=== PATIENT | female | born 1960 | race African-American/Black ===

== ENCOUNTER 2019-07-09 06:05 | Day surgery (SDC) | payer OTHER, SELFPAY ==
[2019-07-04 12:16] LABS: Urine Appearance CLEAR; Urine Bilirubin NEGATIVE (NEG); Urine Blood NEGATIVE (NEG); Urine Color YELLOW; Urine Glucose 3+ (NEG); Urine Protein NEGATIVE (NEG); Urine Specific Gravity >=1.030 (1.005-1.030)
[2019-07-04 12:18] LABS: Absolute Lymphocytes (CBC) 2.4 K/uL (0.7-4.9); Basophils % 0.6 % (0-1.3); Hematocrit 39.4 % (36.0-45.0); Lymphocytes % 29.3 % (15.3-44.8); MPV 7.8 fL (7.6-11.3); RBC Red Blood Cell Count 4.44 M/uL (3.86-4.86)
[2019-07-04 12:23] LABS: Urine Microscopic Reflex NO UMIC
--- NOTE | 2019-07-04 15:01 | EKG ---
Test Date: 2019-07-04 Test Time: 11:53:01 Sessions Clerk: MARLA MEASUREMENT RESULTS: Intervals: Rate: 86 IN: 154 QRSD: 90 QT: 398 QTc: 476 [place]: P: 66 IN: 154 QRS: 32 T: 54 INTERPRETIVE STATEMENTS: Sinus rhythm with occasional premature ventricular complexes Otherwise normal ECG No previous ECG available for comparison Electronically Signed On 07-04-19 15:00:12 CDT by Genaro Jewell
--- OUTSIDE RECORDS SUMMARY | 2019-07-09 05:55 | XMS REPORT ---
:1960 Author Organization [employer]Works Care Team Providers Name Role Phone Arash Shelly Provider Role Unavailable Allergies No Known Allergies Problems Problem Type Condition Code Onset Dates Condition Status Problem Neurological complaint R29.90 Active Problem Hyperglycemia R73.9 Active Problem Obesity (BMI 30-39.9) E66.9 Active Problem Essential hypertension I10 Active Problem Pain in left finger(s) M79.645 Active Problem Nodule of finger of both hands R22.33 Active Problem Breast pain, left N64.4 Active Problem Pain in right finger(s) M79.644 Active Medications No Known Medications Results No Known Results Summary Purpose eClinicalWorks Submission
--- OUTSIDE RECORDS SUMMARY | 2019-07-09 05:55 | XMS REPORT ---
:1960 [facility] Address [address] [place] [address] Dr. Vernon [address] [place] [id number] Care Team Providers Name Role Phone Unavailable Unavailable Unavailable Problems This patient has no known problems. Allergies, Adverse Reactions, Alerts This patient has no known allergies or adverse reactions. Medications This patient has no known medications. Encounters Start End Encounter Admission Attending Care Care Encounter Date/Time Date/Time Type Type Clinicians Facility Department ID 2019-07-08 2019-07-08 Outpatient [id number] 08:31:00 08:31:00
--- OUTSIDE RECORDS SUMMARY | 2019-07-09 05:55 | XMS REPORT ---
:1960 Author Organization eClinicalWorks Care Team Providers Name Role Phone Valentinnikki Shelly Provider Role Unavailable Allergies, Adverse Reactions, Alerts Substance Reaction Event Type N.K.D.A. Info Not Available Non Drug Allergy Problems Problem Type Condition Code Onset Dates Condition Status Problem Pain in left finger(s) M79.645 Active Problem Breast pain, left N64.4 Active Problem Pain in right finger(s) M79.644 Active Assessment Essential hypertension I10 Active Assessment Abnormal mammogram R92.8 Active Assessment Left breast mass N63.20 Active Problem Left breast mass N63.20 Active Problem Nodule of finger of both hands R22.33 Active Problem Abnormal mammogram R92.8 Active Problem Hyperglycemia R73.9 Active Problem Obesity (BMI 30-39.9) E66.9 Active Problem Neurological complaint R29.90 Active Problem Essential hypertension I10 Active Medications Medication Code Code Instructions Start End Status Dosage System Date Date Amlodipine [facility] 82394409160 10 MG Orally Active 1 tablet Besylate Once a day Enalapril ND 64221538928 10 MG Orally May 13, Inactive 1 tablet Maleate Once a day for 2019 high blood pressure Lumigan [facility] 48687338473 0.01 % Active 1 drop into Ophthalmic Once affected a day eye in the evening Symbicort [facility] 65082449851 160-4.5 MCG/ACT Active 1 puffs Inhalation Once a day Combigan [facility] 38028917901 0.2-0.5 % Active 1 drop into Ophthalmic once affected a day eye Losartan ND 53746028950 25 MG Orally May 22, Active 1 tablet Potassium Once a day 2019 Results No Known Results Summary Purpose eClinicalWorks Submission
--- OUTSIDE RECORDS SUMMARY | 2019-07-09 05:55 | XMS REPORT ---
:1960 Author Organization [employer] Care Team Providers Name Role Phone Shelly Antoine Provider Role Unavailable Allergies No Known Allergies Problems Problem Type Condition Code Onset Dates Condition Status Problem Pain in left finger(s) M79.645 Active Problem Breast pain, left N64.4 Active Problem Pain in right finger(s) M79.644 Active Problem Left breast mass N63.20 Active Problem Nodule of finger of both hands R22.33 Active Problem Abnormal mammogram R92.8 Active Problem Hyperglycemia R73.9 Active Problem Obesity (BMI 30-39.9) E66.9 Active Problem Neurological complaint R29.90 Active Problem Essential hypertension I10 Active Medications No Known Medications Results No Known Results Summary Purpose eClinicalWorks Submission
--- OUTSIDE RECORDS SUMMARY | 2019-07-09 05:55 | XMS REPORT ---
:1960 Author Organization eClinicalWorks Care Team Providers Name Role Phone Shelly Antoine Provider Role Unavailable Allergies, Adverse Reactions, Alerts Substance Reaction Event Type N.K.D.A. Info Not Available Non Drug Allergy Problems Problem Type Condition Code Onset Dates Condition Status Assessment Essential hypertension I10 Active Problem Neurological complaint R29.90 Active Problem Hyperglycemia R73.9 Active Problem Obesity (BMI 30-39.9) E66.9 Active Problem Essential hypertension I10 Active Problem Pain in left finger(s) M79.645 Active Problem Nodule of finger of both hands R22.33 Active Problem Breast pain, left N64.4 Active Problem Pain in right finger(s) M79.644 Active Assessment Neurological complaint R29.90 Active Assessment Pain in right finger(s) M79.644 Active Assessment Obesity (BMI 30-39.9) E66.9 Active Assessment Hyperglycemia R73.9 Active Assessment Pain in left finger(s) M79.645 Active Assessment Screening mammogram, encounter for Z12.31 Active Assessment Nodule of finger of both hands R22.33 Active Assessment Breast pain, left N64.4 Active Medications Medication Code Code Instructions Start End Status Dosage System Date Date Combigan [facility] 07116164125 0.2-0.5 % Active 1 drop into Ophthalmic once affected a day eye Enalapril ND 59264265235 10 MG Orally May 13, Active 1 tablet Maleate Once a day for 2019 high blood pressure Symbicort [facility] 33257358871 160-4.5 MCG/ACT Active 1 puffs Inhalation Once a day Lumigan [facility] 39965877595 0.01 % Active 1 drop into Ophthalmic Once affected a day eye in the evening Amlodipine ND 35587435514 10 MG Orally Active 1 tablet Besylate Once a day Results No Known Results Summary Purpose eClinicalWorks Submission
--- OUTSIDE RECORDS SUMMARY | 2019-07-09 07:02 | XMS REPORT ---
[...] End Status Dosage System Date Date Amlodipine [facility] 01165490457 10 MG Orally Active 1 tablet Besylate Once a day Enalapril ND 37475622236 10 MG Orally May 13, Inactive 1 tablet Maleate Once a day for 2019 high blood pressure Lumigan [facility] 68772184867 0.01 % Active 1 drop into Ophthalmic Once affected a day eye in the evening Symbicort [facility] 03787743439 160-4.5 MCG/ACT Active 1 puffs Inhalation Once a day Combigan [facility] 43796927952 0.2-0.5 % Active 1 drop into Ophthalmic once affected a day eye Losartan ND 15380761586 25 MG Orally May 22, Active 1 tablet Potassium Once a day 2019 Results No Known Results Summary Purpose eClinicalWorks Submission
--- OUTSIDE RECORDS SUMMARY | 2019-07-09 07:02 | XMS REPORT ---
[...] End Status Dosage System Date Date Combigan [facility] 74852372433 0.2-0.5 % Active 1 drop into Ophthalmic once affected a day eye Enalapril ND 29199192686 10 MG Orally May 13, Active 1 tablet Maleate Once a day for 2019 high blood pressure Symbicort [facility] 16458357341 160-4.5 MCG/ACT Active 1 puffs Inhalation Once a day Lumigan [facility] 37463046241 0.01 % Active 1 drop into Ophthalmic Once affected a day eye in the evening Amlodipine ND 95083434632 10 MG Orally Active 1 tablet Besylate Once a day Results No Known Results Summary Purpose eClinicalWorks Submission
--- OUTSIDE RECORDS SUMMARY | 2019-07-09 07:03 | XMS REPORT ---
:1960 [facility] Address [address] [place] [address] Dr. Vernon [address] [place] [address] Care Team Providers Name Role Phone Unavailable [...]
[2019-07-09] MEDS ORDERED: SCOPOLAMINE HYDROBROMIDE PATCH TD ONE ×2 (07:54→07:55)
[2019-07-09] MEDS: BUPIVACAINE 0.25% PF 30 ML VIAL ONE ×2 (08:51→11:30)
[2019-07-09] MEDS ORDERED: Ringers Lactate 1,000 ML IV ONE (09:28)
[2019-07-09] MEDS ORDERED: BUPIVACAINE 0.25% PF 10 ML VIAL IJ ONE ×2 (11:30)
[2019-07-09] MEDS ORDERED: PROMETHAZINE INJ 25 MG/ML AMP ONE ×2 (12:01→12:27)
[2019-07-09] MEDS: HYDROMORPHONE HCL 1 MG/ML INJ ONE ×2 (12:20→12:29)
[2019-07-09] MEDS ORDERED: HYDROCODONE/APAP 5/325 MG TAB ONE (14:24)
[2019-07-09 14:39] VITALS: BP 149/68; TEMP 97; O2SAT 98
--- NOTE | 2019-07-24 01:08 | OP ---
Date of Procedure: 07/09/2019 Surgeon: Marlin Cardenas MD Section Cutter: Beth Lockhart Preoperative Diagnoses: Complex pelvic mass, possible right ovarian cyst. Patient with recent diagn osis of locally advanced breast cancer. Postoperative Diagnoses: Bilateral hydrosalpinges and possible endometriosis. Significant adhesions of small bowel, sigmoid, and cecum. Procedures Performed: 1.Diagnostic laparoscopy. 2.Pelvic washings. 3.Extensive lysis of bowel adhesions including small bowel, sigmoid, and cecum. Lysis of ovarian ad hesions. Cystoscopy. Greater than 75% of the case involved removal of the bowel adhesions. Anesthesia: General endotracheal. Patient did have a difficult airway. Fiberoptic scope was used a nd intubated. Specimens: Pelvic washings and bilateral tubes and ovaries. Estimated Blood Loss: Minimal. Complications: No complications. Drains: No drains. Condition: Patient's condition stable. Indications: Patient is a 59-year-old with recent diagnosis of locally advanced breast cancer. She is being worked up by her oncologist, . Found on the CT scan of the abdomen and pelvis to have a complex adnexal mass of 5 cm. After reviewing the patient and evaluating the patient's hi story and physical exam, options of removal of the pelvic mass to rule out any ovarian malignancy or metastatic cancer. Overall diagnosis of the patient since this is not a solid tumor, metastasis from the breast is less likely prior to rule out of the primary ovarian cancer. Discussed about the find ings of hydrosalpinges or other adhesions and loculations of fluid that could cause her to have this pelvic mass were all discussed with the patient, and after considering all the benefits and risks and alternatives of upcoming chemotherapy prior to surgical intervention were discussed with her oncolog ist, plan was made to proceed with surgical treatment first, and once the patient's pathology is avai lable, then proceed with her port placement and chemotherapy and all that. Description Of Procedure: After informed consent was verified, patient was taken back to the OR, dawn melinda in supine fashion on the operating table. In the preop, she was consented again. Risks of bowel injury, bladder injury, ureteric injury were all reviewed with the patient. The lack of need for re moval of the cervix was discussed with the patient. She is status post supracervical hysterectomy. This increased morbidity of the procedure, although patient is a smoker, and this was discussed with the patient that cessation would be helpful in order to help her heal faster and decrease the risk of postoperative infection. She was taken back to OR, placed in supine fashion on the operating table. General anesthesia given as dictated difficult airway. Abdomen, vulva, vagina, and perineum preppe d and draped in a sterile fashion. A sponge on a stick placed in the vagina and Stephens to drain the b ladder. This area was draped. A 1 cm supraumbilical incision was made, 10 mm in the midline. Open dissection was performed. Fascia incised and tagged with 0 Vicryl sutures. Then, gradually sharp di ssection to the peritoneum, and once the patient's cavity was entered, S retractors were placed. Ins ufflation was done after Lakeisha was introduced. Site of entry was checked, unremarkable. However, t here were adhesions in the right lower quadrant starting from the cecal adhesion to the anterior abdo marianne wall and the right lateral wall. Small bowel adhesions were seen to the right side as well. I could not see any tubal or ovarian pathology at this time. So, a 5-mm right upper quadrant port was placed under direct vision and dissection was performed gradually to take down the adhesions sharply with scissors from the cecum to the anterior abdominal wall. Then another 5-mm right lower quadrant port was placed and using the traction and countertraction technique making window, small bowel was taken down from the right lower quadrant that was attached to the infundibulopelvic ligament and the distal part of the paracolic gutter. Once all the small bowel was released, the patient was placed i n Trendelenburg and bowel retracted superiorly into the upper abdominal cavity and pelvic cavity was exposed. There were adhesions of the sigmoid all the way from the right lateral wall to the tube, al l the way down to the level of the cervix and the bladder. So, gradually windows were created and di ssection was performed taking the sigmoid down from the lateral wall. Ureter was traced at the level of the pelvic brim where it crossed the iliacs at the level of the bifurcation of the iliacs and thi s was traced down gradually. Dissection was performed carefully staying away from the ureter and the peritoneum. After taking the sigmoid down, I realized that this was a larger hydrosalpinx that star waylon at the level of the infundibulopelvic ligament, the ovary was tucked underneath it and the tube w as adhered to the area of the supracervical hysterectomy into the bladder. Next, the bladder was donis led and drained with retrograde filling to the olamide borders. Then, the tube was dissected free with help of the LigaSure from the bladder. Then, infundibulopelvic ligament was isolated. A window crea waylon medially. Then, this was taken down with the help of the LigaSure at IP making sure that the ure ter was far away. Then, once the ovary was from its blood supply, the dissection was perfo rmed of the lateral wall, understanding the course of the ureter and removing the tubal and ovarian a dhesions from the lateral sidewall. Once the dissection was performed, it was from the are a of bladder as well and the specimen was left in the right lower quadrant. Then, the sigmoid colon was taken down from the top of the bladder from the left lateral wall all the way to the level of the left lower quadrant. A 5-mm port was placed on the left side for traction, countertraction, and suc tioning. The sigmoid was taken down sharply with push-spread technique and placed this with the help of the LigaSure. Once the sigmoid was all released on the left side, continued to infundibulopelvic ligament with slight dilatation of the tube on this side. The tube was taken down from the distal p art by carefully dissecting it and with windows and taking it down. The ureter was visual ized at the level of the pelvic brim, but I could not see the ureteric course due to the adhesions of the tube to the sidewall, then gradually freed defining the lateral margin of the tube. Then, disse ction was performed to stay preperitoneal and opened the space up and took the tube from the lateral wall. Once the ureter was exposed, then the tube was taken to the left side. The IP was isolated an d taken down with the help of the LigaSure. With excellent hemostasis, all specimens were removed an d placed in the specimen pouch that was placed through the umbilical incision while a 5 port was used in the left lower quadrant. closed, then thorough irrigation and suction performed. All the areas of dissection were clear of any injury. The hemostasis was excellent infundibu lopelvic ligament and pedicles. There was no electrical, mechanical, thermal injury to the ureters. However, the plan was to perform a cystoscopy. All the gas was desufflated. Trocars were removed. Fascia of the supraumbilical area closed with the help of the 0 Vicryl suture tied to each other and 4-0 interrupted in all incisions for closure. The vaginal sponge was removed and cystoscopy was per formed after the Stephens was removed. A 17-Trinidadian sheath, 30-degree lens, normal saline used. Good ur eteric reflux on both ureteric orifices. No evidence of any mechanical or electrical injury to the b ladder. The bladder was then drained. Patient was recovered from anesthesia and taken to PACU in st able condition. SUSAN/CICI Voice ID: [id number] Report ID: [id number]
== END 2019-07-09 14:45 | disposition home or self-care (01) ==
LOC: OR 06:05
PROVIDERS: ATTEND Obstetrics & Gynecology
PROC: 0UT74ZZ Resection of Bilateral Fallopian Tubes, Percutaneous Endoscopic Approach (ICD-10-PCS; 2019-07-09)
PROC: 0UT24ZZ Resection of Bilateral Ovaries, Percutaneous Endoscopic Approach (ICD-10-PCS; principal; 2019-07-09 07:30)
DX: N70.11 Chronic salpingitis (principal); K66.0 Peritoneal adhesions (postprocedural) (postinfection); C50.112 Malignant neoplasm of central portion of left female breast; I10 Essential (primary) hypertension; F17.210 Nicotine dependence, cigarettes, uncomplicated; Z79.899 Other long term (current) drug therapy
CPT/HCPCS: 36415; 81003; 85025; 86850; 86900; 86901; 88108; 88305; 93005; J1170; J2550; J7120

== ENCOUNTER 2019-07-23 11:29 | Day surgery (SDC) | payer OTHER, SELFPAY ==
[2019-07-23] MEDS ORDERED: Pegfilgrastim-CBQV 6 MG/0.6 ML SYR SQ ONE (11:45)
[2019-07-23 12:19] VITALS: BP 194/91; TEMP 98.4; O2SAT 100; BMI 39.7
== END 2019-07-23 12:25 | disposition home or self-care (01) ==
LOC: DS 11:29
PROVIDERS: ATTEND Internal Medicine Hematology & Oncology
DX: C50.912 Malignant neoplasm of unspecified site of left female breast (principal); C77.3 Secondary and unspecified malignant neoplasm of axilla and upper limb lymph nodes
CPT/HCPCS: 96372

== ENCOUNTER 2019-07-25 11:59 | Emergency (ER) | payer OTHER, SELFPAY ==
--- OUTSIDE RECORDS SUMMARY | 2019-07-25 12:01 | XMS REPORT ---
[...] End Status Dosage System Date Date Combigan [facility] 55722303455 0.2-0.5 % Active 1 drop into Ophthalmic once affected a day eye Enalapril ND 70526593408 10 MG Orally May 13, Active 1 tablet Maleate Once a day for 2019 high blood pressure Symbicort [facility] 82608444047 160-4.5 MCG/ACT Active 1 puffs Inhalation Once a day Lumigan [facility] 09520916159 0.01 % Active 1 drop into Ophthalmic Once affected a day eye in the evening Amlodipine ND 88595575515 10 MG Orally Active 1 tablet Besylate Once a day Results No Known Results Summary Purpose eClinicalWorks Submission
--- OUTSIDE RECORDS SUMMARY | 2019-07-25 12:02 | XMS REPORT ---
:1960 [facility] Address [address] [place] [address] Dr. Vernon [address] [place] [address] Care Team Providers Name Role Phone Unavailable [...]
--- OUTSIDE RECORDS SUMMARY | 2019-07-25 12:02 | XMS REPORT ---
[...] End Status Dosage System Date Date Amlodipine [facility] 08245426986 10 MG Orally Active 1 tablet Besylate Once a day Enalapril ND 79491339285 10 MG Orally May 13, Inactive 1 tablet Maleate Once a day for 2019 high blood pressure Lumigan [facility] 96678753582 0.01 % Active 1 drop into Ophthalmic Once affected a day eye in the evening Symbicort [facility] 26242814987 160-4.5 MCG/ACT Active 1 puffs Inhalation Once a day Combigan [facility] 56412841486 0.2-0.5 % Active 1 drop into Ophthalmic once affected a day eye Losartan ND 18312831328 25 MG Orally May 22, Active 1 tablet Potassium Once a day 2019 Results No Known Results Summary Purpose eClinicalWorks Submission
--- OUTSIDE RECORDS SUMMARY | 2019-07-25 12:02 | XMS REPORT ---
:1960 Author Organization eClinicalWorks Care Team Providers Name Role Phone Shelly Antoine Provider Role Unavailable Allergies No Known Allergies Problems Problem Type Condition Code Onset Dates Condition Status Problem Neurological complaint R29.90 Active Problem Pain in right finger(s) M79.644 Active Problem Pain in left finger(s) M79.645 Active Assessment Uncontrolled type 2 diabetes E11.65 Active mellitus with hyperglycemia Problem Uncontrolled type 2 diabetes E11.65 Active mellitus with hyperglycemia Problem Left breast mass N63.20 Active Problem Nodule of finger of both hands R22.33 Active Problem Abnormal mammogram R92.8 Active Problem Obesity (BMI 30-39.9) E66.9 Active Problem Breast pain, left N64.4 Active Problem Essential hypertension I10 Active Problem Hyperglycemia R73.9 Active Medications Medication Code Code Instructions Start End Status Dosage System Date Date Blood Glucose ND 0 as directed June Active as directed Monitor Test BS once 2019 (DISPENSE daily BLOOD GLUCOSE MONITOR FORMULARY TO INSURANCE) Combigan [facility] 89596175973 0.2-0.5 % Active 1 drop into Ophthalmic once affected eye a day Losartan ND 65183710487 25 MG Orally May 22, Active 1 tablet Potassium Once a day 2019 Lancets [facility] 55391716108 - as directed June Active as directed Test BS once 2019 (dispense daily lancets formulary to insurance) Glucose [facility] [address] n/s June Active as directed testing strips subcutaneous 2019 (dispense Test BS once testing daily strips formulary to insurance) Lumigan ND 42714444495 0.01 % Active 1 drop into Ophthalmic Once affected eye a day in the evening Symbicort ND 67900179647 160-4.5 MCG/ACT Active 1 puffs Inhalation Once a day Amlodipine ND 11816177896 10 MG Orally Active 1 tablet Besylate Once a day Metformin HCl ND 33700756769 500 MG Orally June Active 1 tablet Twice a day for 2019 with a meal diabetes Results No Known Results Summary Purpose eClinicalWorks Submission
[2019-07-25] MEDS ORDERED: LORAZEPAM 1 MG TABLET ONE (13:05)
--- NOTE | 2019-07-25 13:21 | RAD REPORT ---
EXAM DESCRIPTION: CT - Head Brain Wo Cont - 07/25/2019 1:10 pm CLINICAL HISTORY: SLURRED SPEECH Headache, drowsiness COMPARISON: No comparisons TECHNIQUE: All CT scans are performed using dose optimization technique as appropriate and may inclu de automated exposure control or mA/KV adjustment according to patient size. FINDINGS: No intracranial hemorrhage, hydrocephalus or extra-axial fluid collection.No areas of brai n edema or evidence of midline shift. The paranasal sinuses and mastoids are clear. The calvarium is intact. IMPRESSION: No acute intracranial abnormality.
[2019-07-25 13:47] LABS: Albumin 3.4 g/dL (3.4-5.0); Bilirubin Total 0.2 mg/dL (0.2-1.0); Potassium 4.4 mmol/L (3.5-5.1)
[2019-07-25] MEDS ORDERED: INSULIN -REGULAR HUMAN 50 UNIT/0.5 ML ML ONE (14:10)
--- NOTE | 2019-07-25 15:10 | ER ---
Nurse's Notes [facility] Name: Martha Patel Age: 59 yrs Sex: Female : 1960 Arrival Date: 07/25/2019 Time: 12:00 Bed 18 Private MD: Shelly Antoine Diagnosis: Elevated blood glucose level Presentation: 07/24 12:10 Chief complaint: Patient states: Stage 3 breast cancer,had chemo Monday, had an immuno jl7 shot on Monday, yesterday started feeling numbness to whole right side of body from top of head to toes, denies pain. Coronavirus screen: Patient denies fever greater than 100.4F, cough, shortness of breath, or difficulty breathing. Proceed with normal triage process. Ebola Screen: No symptoms or risks identified at this time. Initial Sepsis Screen: Does the patient meet any 2 criteria? No. Patient's initial sepsis screen is negative. Does the patient have a suspected source of infection? No. Patient's initial sepsis screen is negative. Risk Assessment: Do you want to hurt yourself or someone else? Patient reports no desire to harm self or others. 12:10 Method Of Arrival: Wheelchair jl7 12:10 Acuity: LISANDRO 3 jl7 Triage Assessment: 12:20 General: Appears in no apparent distress. uncomfortable, Behavior is calm, cooperative, jl7 appropriate for age. Pain: Denies pain. Historical: - Allergies: 12:20 No Known Allergies; jl7 - Home Meds: 12:20 amlodipine oral [Active]; Metformin Oral [Active]; jl7 - PMHx: 12:20 Cancer, Breast; Hypertension; Diabetes - NIDDM; jl7 - PSHx: 12:20 Hysterectomy; jl7 - Immunization history:: Adult Immunizations not up to date. - Social history:: Smoking status: Patient/guardian denies using tobacco, Stopped _ months ago 1 Patient/guardian denies using alcohol, street drugs, The patient lives with family. - Family history:: not pertinent. Screenin:34 Abuse screen: Denies threats or abuse. Nutritional screening: No deficits noted. tw2 Tuberculosis screening: No symptoms or risk factors identified. Fall Risk Secondary diagnosis (15 points) impaired mobility. Assessment: 12:21 Reassessment: Pt reports "I haven't taken my Metformin because I haven't had a chance jl7 to get the machine to check it.". 12:30 General: Appears in no apparent distress. obese, well groomed, Behavior is calm, tw2 cooperative, appropriate for age. Pain: Denies pain. Neuro: No deficits noted. Reports weakness right side since chemo. Cardiovascular: Denies chest pain, shortness of breath, Heart tones S1 S2 Patient's skin is warm and dry. Respiratory: Airway is patent Respiratory effort is even, unlabored, Respiratory pattern is regular, symmetrical, Breath sounds are clear bilaterally. GI: No signs and/or symptoms were reported involving the gastrointestinal system. Abdomen is round non-distended, obese, Bowel sounds present X 4 quads. : No signs and/or symptoms were reported regarding the genitourinary system. EENT: No signs and/or symptoms were reported regarding the EENT system. Derm: No signs and/or symptoms reported regarding the dermatologic system. Musculoskeletal: Range of motion: intact in all extremities. 13:00 Reassessment: Patient appears in no apparent distress at this time. Patient and/or tw2 family updated on plan of care and expected duration. Pain level reassessed. Patient is alert, oriented x 3, equal unlabored respirations, skin warm/dry/pink. 14:17 Reassessment: Patient appears in no apparent distress at this time. Patient and/or tw2 family updated on plan of care and expected duration. Pain level reassessed. Patient is alert, oriented x 3, equal unlabored respirations, skin warm/dry/pink. Patient states feeling better. Patient states symptoms have improved. 15:00 Reassessment: Patient appears in no apparent distress at this time. Patient and/or tw2 family updated on plan of care and expected duration. Pain level reassessed. Patient is alert, oriented x 3, equal unlabored respirations, skin warm/dry/pink. 15:38 Reassessment: Patient appears in no apparent distress at this time. Patient and/or tw2 family updated on plan of care and expected duration. Pain level reassessed. Patient is alert, oriented x 3, equal unlabored respirations, skin warm/dry/pink. Patient states feeling better. Patient states symptoms have improved. Vital Signs: 12:10 BP 178 / 85; Pulse 72; Resp 16 S; Temp 98.1(O); Pulse Ox 99% on R/A; Weight 108.41 kg jl7 (R); Pain 0/10; 12:25 BP 180 / 85; Pulse 66; Resp 16; Pulse Ox 98% on R/A; tw2 13:16 BP 167 / 70 LA; Pulse 66; Resp 14 S; Pulse Ox 100% on R/A; js6 ED Course: 12:00 Patient arrived in ED. am2 12:01 Shelly Antoine MD is Private Physician. am2 12:14 Triage completed. jl7 12:20 Arm band placed on right wrist. jl7 12:22 Bed in low position. Call light in reach. tw2 12:23 Jono Wren MD is Attending Physician. ma2 12:34 Jenna Garcia RN is Primary Nurse. tw2 12:59 Initial lab(s) drawn, by or, sent to lab. Inserted saline lock: 20 gauge in right dh3 forearm, using aseptic technique. Blood collected. 13:11 CT Head Brain wo Cont In Process Unspecified. EDMS 15:38 No provider procedures requiring assistance completed. IV discontinued, intact, tw2 bleeding controlled, No redness/swelling at site. Pressure dressing applied. Administered Medications: 13:22 Drug: Ativan 1 mg Route: PO; ll1 14:01 Follow up: Response: No adverse reaction tw2 14:08 Drug: Insulin Regular Human 3 units {Co-Signature: ll1 (Robert Garcia RN).} Route: IVP; tw2 Site: right antecubital; 15:03 Follow up: Response: No adverse reaction; Blood sugar is lowered tw2 Point of Care Testing: Blood Glucose: 12:20 Blood Glucose: 356 mg/dL; jl7 Ranges: Outcome: 15:10 Discharge ordered by . ma2 15:38 Patient left the ED. tw2 15:38 Discharged to home via wheelchair, with family. tw2 15:38 Condition: stable 15:38 Discharge instructions given to patient, Instructed on discharge instructions, follow up and referral plans. Demonstrated understanding of instructions, follow-up care. Signatures: Dispatcher [employer] EDMS Jenna Garcia RN RN tw2 Alejandra Blankenship RN RN jl7 Claudia Valdivia am2 Mayela Hanson [facility] Jono Wren MD MD ak2 Robert Garcia, SUE RN ll1 Krista Smith6 Robert Garcia RN ll1
--- NOTE | 2019-07-25 15:11 | EDPHYS ---
Physician Documentation [facility] Name: Martha Patel Age: 59 yrs Sex: Female : 1960 Arrival Date: 07/25/2019 Time: 12:00 Bed 18 Private MD: Shelly Antoine ED Physician Jono Wren HPI: 07/24 13:53 This 59 yrs old Black Female presents to ER via Wheelchair with complaints of General ma2 Weakness, Numbness - right side. 13:53 The patient's problem is reported as right body numbness including head, face, ma2 forehead, lower face, right arm, right torso and right leg . Onset: The symptoms/episode began/occurred gradually, 3 day(s) ago. Duration: The episodes are intermittent, lasting 5 minute(s). Associated signs and symptoms: Pertinent negatives: abdominal pain, agitation, ataxia, blurred vision, chest pain, confusion, diaphoresis, dizziness, headache, nausea, palpitations, shortness of breath, weakness. Severity of symptoms: At their worst the symptoms were very mild in the emergency department the symptoms have resolved. The patient has experienced similar episodes in the past. Historical: - Allergies: 12:20 No Known Allergies; jl7 - Home Meds: 12:20 amlodipine oral [Active]; Metformin Oral [Active]; jl7 - PMHx: 12:20 Cancer, Breast; Hypertension; Diabetes - NIDDM; jl7 - PSHx: 12:20 Hysterectomy; jl7 - Immunization history:: Adult Immunizations not up to date. - Social history:: Smoking status: Patient/guardian denies using tobacco, Stopped _ months ago 1 Patient/guardian denies using alcohol, street drugs, The patient lives with family. - Family history:: not pertinent. ROS: 13:53 Constitutional: Negative for fever, chills, and weight loss. ma2 13:53 All other systems are negative. Exam: 13:53 Radiologist reports: normal ma2 13:53 Constitutional: This is a well developed, well nourished patient who is awake, alert, and in no acute distress. Head/Face: Normocephalic, atraumatic. Eyes: Pupils equal round and reactive to light, extra-ocular motions intact. Lids and lashes normal. Conjunctiva and sclera are non-icteric and not injected. Cornea within normal limits. Periorbital areas with no swelling, redness, or edema. ENT: Nares patent. No nasal discharge, no septal abnormalities noted. Tympanic membranes are normal and external auditory canals are clear. Oropharynx with no redness, swelling, or masses, exudates, or evidence of obstruction, uvula midline. Mucous membranes moist. Neck: Trachea midline, no thyromegaly or masses palpated, and no cervical lymphadenopathy. Supple, full range of motion without nuchal rigidity, or vertebral point tenderness. No Meningismus. Chest/axilla: Normal chest wall appearance and motion. Nontender with no deformity. No lesions are appreciated. Cardiovascular: Regular rate and rhythm with a normal S1 and S2. No gallops, murmurs, or rubs. Normal PMI, no JVD. No pulse deficits. Respiratory: Lungs have equal breath sounds bilaterally, clear to auscultation and percussion. No rales, rhonchi or wheezes noted. No increased work of breathing, no retractions or nasal flaring. Abdomen/GI: Soft, non-tender, with normal bowel sounds. No distension or tympany. No guarding or rebound. No evidence of tenderness throughout. Back: No spinal tenderness. No costovertebral tenderness. Full range of motion. MS/ Extremity: Pulses equal, no cyanosis. Neurovascular intact. Full, normal range of motion. Neuro: Awake and alert, GCS 15, oriented to person, place, time, and situation. Cranial nerves II-XII grossly intact. Motor strength 5/5 in all extremities. Sensory grossly intact. Cerebellar exam normal. Normal gait. Vital Signs: 12:10 BP 178 / 85; Pulse 72; Resp 16 S; Temp 98.1(O); Pulse Ox 99% on R/A; Weight 108.41 kg jl7 (R); Pain 0/10; 12:25 BP 180 / 85; Pulse 66; Resp 16; Pulse Ox 98% on R/A; tw2 13:16 BP 167 / 70 LA; Pulse 66; Resp 14 S; Pulse Ox 100% on R/A; js6 MDM: 12:23 Patient medically screened. ma2 13:53 Differential diagnosis: Dementia, Alzheimer disease, Parkinson disease, metabolic ma2 disorder, drug effects. 15:09 Data reviewed: vital signs, nurses notes. Counseling: I had a detailed discussion with wisam the patient and/or guardian regarding: the historical points, exam findings, and any diagnostic results supporting the discharge/admit diagnosis, the presence of at least one elevated blood pressure reading (>120/80) during this emergency department visit, the need for outpatient follow up. Response to treatment: the patient's symptoms have resolved after treatment. 07/24 12:31 Order name: Glucose, Ancillary Testing; Complete Time: 13:49 EDTX 07/24 12:44 Order name: CMP; Complete Time: 13:49 wv2 07/24 12:44 Order name: CT Head Brain wo Cont; Complete Time: 13:49 wv2 07/24 13:16 Order name: Ionized Calcium EDTX 07/24 15:15 Order name: Glucose, Ancillary Testing; Complete Time: 15:15 EDTX 07/24 12:45 Order name: IV Start; Complete Time: 13:01 tw2 Administered Medications: 13:22 Drug: Ativan 1 mg Route: PO; [facility] 14:01 Follow up: Response: No adverse reaction tw2 14:08 Drug: Insulin Regular Human 3 units {Co-Signature: ll1 (Robert Garcia RN).} Route: IVP; tw2 Site: right antecubital; 15:03 Follow up: Response: No adverse reaction; Blood sugar is lowered tw2 Point of Care Testing: Blood Glucose: 12:20 Blood Glucose: 356 mg/dL; jl7 Ranges: Critical Glucose Levels:Adult <50 mg/dl or >400 mg/dl <40 mg/dl or >180 mg/dl Disposition: 07/25/19 15:10 Discharged to Home. Impression: Elevated blood glucose level. - Condition is Stable. - Discharge Instructions: Diabetes Mellitus and Food. - Medication Reconciliation Form, Thank You Letter, Antibiotic Education, Prescription Opioid Use form. - Follow up: Private Physician; When: Tomorrow; Reason: Continuance of care. Signatures: Dispatcher [employer] Jenna Milner RN RN tw2 Alejandra Blankenship RN RN jl7 Jono Wren MD MD ma2 Lewis, Lynsay, RN RN ll1 Robert Garcia RN ll1 Corrections: (The following items were deleted from the chart) 15:38 15:10 07/25/2019 15:10 Discharged to Home. Impression: Elevated blood glucose level. tw2 Condition is Stable. Forms are Medication Reconciliation Form, Thank You Letter, Antibiotic Education, Prescription Opioid Use. Follow up: Private Physician; When: Tomorrow; Reason: Continuance of care. ma2
[2019-07-25 15:43] VITALS: TEMP 98.1
[2019-07-25 15:46] VITALS: BP 167/70; O2SAT 100
== END 2019-07-25 15:38 | disposition home or self-care (01) ==
LOC: ER 11:59
DX: E11.65 Type 2 diabetes mellitus with hyperglycemia (principal); I10 Essential (primary) hypertension; Z85.3 Personal history of malignant neoplasm of breast
CPT/HCPCS: 36415; 70450; 80053; 82330; 82947; 96374; 99284

== ENCOUNTER 2019-07-29 08:02 | Inpatient (IN) | payer OTHER ==
--- OUTSIDE RECORDS SUMMARY | 2019-07-29 08:06 | XMS REPORT ---
[...] End Status Dosage System Date Date Combigan [facility] 94253091647 0.2-0.5 % Active 1 drop into Ophthalmic once affected a day eye Enalapril ND 68876682904 10 MG Orally May 13, Active 1 tablet Maleate Once a day for 2019 high blood pressure Symbicort [facility] 68233278283 160-4.5 MCG/ACT Active 1 puffs Inhalation Once a day Lumigan [facility] 80136557475 0.01 % Active 1 drop into Ophthalmic Once affected a day eye in the evening Amlodipine ND 12629891148 10 MG Orally Active 1 tablet Besylate Once a day Results No Known Results Summary Purpose eClinicalWorks Submission
--- OUTSIDE RECORDS SUMMARY | 2019-07-29 08:06 | XMS REPORT ---
:1960 [facility] Address [address] [place] [address] Dr. Vernon [address] [place] [id number] Care Team Providers Name Role Phone Unavailable [...]
--- OUTSIDE RECORDS SUMMARY | 2019-07-29 08:06 | XMS REPORT ---
[...] BLOOD GLUCOSE MONITOR FORMULARY TO INSURANCE) Combigan [facility] 68408874992 0.2-0.5 % Active 1 drop into Ophthalmic once affected eye a day Losartan ND 05410304324 25 MG Orally May 22, Active 1 tablet Potassium Once a day 2019 Lancets [facility] [id number] - as directed June Active as directed Test BS once 2019 (dispense daily lancets formulary to insurance) Glucose [facility] [id number] n/s June Active as directed testing strips subcutaneous 2019 (dispense Test BS once testing daily strips formulary to insurance) Lumigan ND 74574848241 0.01 % Active 1 drop into Ophthalmic Once affected eye a day in the evening Symbicort ND 76515957803 160-4.5 MCG/ACT Active 1 puffs Inhalation Once a day Amlodipine ND 86950859292 10 MG Orally Active 1 tablet Besylate Once a day Metformin HCl ND 49132176881 500 MG Orally June Active 1 tablet Twice a day for 2019 with a meal diabetes Results No Known Results Summary Purpose eClinicalWorks Submission
--- OUTSIDE RECORDS SUMMARY | 2019-07-29 08:06 | XMS REPORT ---
[...] End Status Dosage System Date Date Amlodipine [facility] 16137055126 10 MG Orally Active 1 tablet Besylate Once a day Enalapril ND 36432952497 10 MG Orally May 13, Inactive 1 tablet Maleate Once a day for 2019 high blood pressure Lumigan [facility] 47113813581 0.01 % Active 1 drop into Ophthalmic Once affected a day eye in the evening Symbicort [facility] 85874874314 160-4.5 MCG/ACT Active 1 puffs Inhalation Once a day Combigan [facility] 05856629421 0.2-0.5 % Active 1 drop into Ophthalmic once affected a day eye Losartan ND 32954046426 25 MG Orally May 22, Active 1 tablet Potassium Once a day 2019 Results No Known Results Summary Purpose eClinicalWorks Submission
--- NOTE | 2019-07-29 09:34 | RAD REPORT ---
EXAM DESCRIPTION: RAD - Chest Single View - 07/29/2019 9:23 am CLINICAL HISTORY: COUGH Chest pain. COMPARISON: No comparisons FINDINGS: Portable technique limits examination quality. The lungs are grossly clear. The heart is normal in size. No displaced fractures.Right-sided venous c atheter has tip in the SVC. IMPRESSION: No acute intrathoracic process suspected.
[2019-07-29] MEDS ORDERED: NA CHLORIDE 0.9% 1,000 ML ONE ×2 (09:44→10:27)
[2019-07-29] MEDS ORDERED: FOLIC ACID 5 MG/ML VIAL ONE (09:44)
[2019-07-29 09:46] LABS: Protime INR 1.04
[2019-07-29 09:47] LABS: Absolute Lymphocytes (CBC) 0.5 K/uL (0.7-4.9); Basophils % 0.2 % (0-1.3); Hematocrit 39.7 % (36.0-45.0); Lymphocytes % 19.5 % (15.3-44.8); MPV 9.4 fL (7.6-11.3); RBC Red Blood Cell Count 4.53 M/uL (3.86-4.86)
[2019-07-29 10:19] LABS: ALT/SGPT 19 U/L (12-78); AST/SGOT 4 U/L (15-37); Albumin 3.4 g/dL (3.4-5.0); Alkaline Phosphatase 135 U/L (45-117); BUN Blood Urea Nitrogen 19 mg/dL (7-18); Bicarbonate 25 mmol/L (21-32); Bilirubin Direct 0.2 mg/dL (0-0.2); Bilirubin Total 0.7 mg/dL (0.2-1.0); Glucose Level 312 mg/dL (74-106); Lipase 65 U/L (73-393); Magnesium 1.9 mg/dL (1.8-2.4); NT PRO-BNP 37 pg/mL (<125); Potassium 3.9 mmol/L (3.5-5.1); Protein, Total 6.8 g/dL (6.4-8.2); Sodium Level 136 mmol/L (136-145); Troponin (Emerg Dept Use Only) < 0.02 ng/mL (0.0-0.045)
--- NOTE | 2019-07-29 10:35 | RAD REPORT ---
EXAM DESCRIPTION: MRI - Brain Wo Cont - 07/29/2019 10:22 am CLINICAL HISTORY: DIZZINESS Headache, drowsiness, CVA symptomology COMPARISON: Head Brain Wo Cont dated 07/25/2019 TECHNIQUE: Multi-sequence, multiplanar MR imaging of the brain was performed without contrast. FINDINGS: No intracranial hemorrhage, hydrocephalus or extra-axial fluid collections.Minimal periven tricular chronic microvascular ischemia seen. No edema or shift of midline structures. No findings to suspect brain mass. Vidal 8 mm area of diffusion restriction is seen left basal ganglia. No diminis hed ADC map signal seen in this region. This likely represents subacute nonhemorrhagic lacunar infarc t. Midline structures are normally formed. Mastoid air cells and paranasal sinuses are clear. IMPRESSION: 8 mm nonhemorrhagic subacute infarct suspected left basal ganglia.
[2019-07-29] MEDS ORDERED: CEFEPIME/SWI 2gm 2 GM/20 ML SYR IV ONE (10:45)
[2019-07-29] MEDS ORDERED: VANCOMYCIN/NS 1 gm 1 GM/250 ML BAG IV ONE (10:45)
[2019-07-29 10:57] LABS: Urine Blood NEGATIVE (NEG); Urine Glucose 2+ (NEG); Urine Protein TRACE (NEG); Urine Specific Gravity 1.025 (1.005-1.030); Urine pH 5.5 (5.0-7.0)
--- NOTE | 2019-07-29 11:01 | RAD REPORT ---
EXAM DESCRIPTION: US - CP - 07/29/2019 10:47 am CLINICAL HISTORY: DIZZINESS Headache, drowsiness, CVA symptomology COMPARISON: No comparisons TECHNIQUE: Real-time sonographic evaluation of both carotid systems was performed. Doppler interroga tion was performed with waveform tracing bilaterally. FINDINGS: Normal high resistance waveforms are noted in both external carotid arteries. The common c arotid arteries and internal carotid arteries show normal low resistance waveforms. Mild soft plaque right proximal internal carotid artery noted. Mild soft plaque left mid common carot id artery. Peak systolic and end diastolic velocity values and the ICA/CCA ratios are in the non-hemo dynamically significant range. Antegrade flow seen in both vertebral arteries. IMPRESSION: Mild soft plaquing is noted as detailed. No evidence of a hemodynamically significant stenosis.
[2019-07-29 11:15] LABS: Blood Morphology Comment NOT SEEN (NOT SEEN); Platelet Estimate ADEQ
--- NOTE | 2019-07-29 11:22 | EDPHYS ---
Physician Documentation [facility] Name: Martha Patel Age: 59 yrs Sex: Female : 1960 Arrival Date: 07/29/2019 Time: 08:04 Bed 5 Private MD: Shelly Antoine ED Physician Dave Humphrey HPI: 07/28 08:57 This 59 yrs old Black Female presents to ER via Wheelchair with complaints of Numbness, chioma General Weakness. 08:57 The patient's problem is reported as weakness. Onset: The symptoms/episode chioma began/occurred 5 day(s) ago. Duration: The episode is continuous. Context: the episode(s) was witnessed, by family. The symptoms are alleviated by nothing. The symptoms are aggravated by nothing. Associated signs and symptoms: Pertinent positives: dizziness, lightheadedness, numbness, shortness of breath. Severity of symptoms: At their worst the symptoms were moderate in the emergency department the symptoms are unchanged. The patient has not experienced similar symptoms in the past. Historical: - Allergies: 08:17 No Known Allergies; ss - PMHx: 08:17 Cancer, Breast; Diabetes - NIDDM; Hypertension; ss - PSHx: 08:17 Hysterectomy; ss - Immunization history:: Adult Immunizations up to date. - Social history:: Smoking status: Patient denies any tobacco usage or history of. - Family history:: not pertinent. ROS: 08:57 Constitutional: Negative for fever, chills, and weight loss, Eyes: Negative for injury, chioma pain, redness, and discharge, ENT: Negative for injury, pain, and discharge, Neck: Negative for injury, pain, and swelling, Cardiovascular: Negative for chest pain, palpitations, and edema, Abdomen/GI: Negative for abdominal pain, nausea, vomiting, diarrhea, and constipation, Back: Negative for injury and pain, : Negative for injury, bleeding, discharge, and swelling, MS/Extremity: Negative for injury and deformity, Skin: Negative for injury, rash, and discoloration, Psych: Negative for depression, anxiety, suicide ideation, homicidal ideation, and hallucinations, Allergy/Immunology: Negative for hives, rash, and allergies, Endocrine: Negative for neck swelling, polydipsia, polyuria, polyphagia, and marked weight changes, Hematologic/Lymphatic: Negative for swollen nodes, abnormal bleeding, and unusual bruising. 08:57 Respiratory: Positive for cough, shortness of breath, at rest. 08:57 Neuro: Positive for numbness, weakness, of the face, right arm and right leg. Exam: 08:57 Constitutional: This is a well developed, well nourished patient who is awake, alert, chioma and in no acute distress. Head/Face: Normocephalic, atraumatic. Eyes: Pupils equal round and reactive to light, extra-ocular motions intact. Lids and lashes normal. Conjunctiva and sclera are non-icteric and not injected. Cornea within normal limits. Periorbital areas with no swelling, redness, or edema. ENT: Nares patent. No nasal discharge, no septal abnormalities noted. Tympanic membranes are normal and external auditory canals are clear. Oropharynx with no redness, swelling, or masses, exudates, or evidence of obstruction, uvula midline. Mucous membranes moist. Neck: Trachea midline, no thyromegaly or masses palpated, and no cervical lymphadenopathy. Supple, full range of motion without nuchal rigidity, or vertebral point tenderness. No Meningismus. Chest/axilla: Normal chest wall appearance and motion. Nontender with no deformity. No lesions are appreciated. Cardiovascular: Regular rate and rhythm with a normal S1 and S2. No gallops, murmurs, or rubs. Normal PMI, no JVD. No pulse deficits. Respiratory: Lungs have equal breath sounds bilaterally, clear to auscultation and percussion. No rales, rhonchi or wheezes noted. No increased work of breathing, no retractions or nasal flaring. Abdomen/GI: Soft, non-tender, with normal bowel sounds. No distension or tympany. No guarding or rebound. No evidence of tenderness throughout. Back: No spinal tenderness. No costovertebral tenderness. Full range of motion. Female : Normal external genitalia. Skin: Warm, dry with normal turgor. Normal color with no rashes, no lesions, and no evidence of cellulitis. MS/ Extremity: Pulses equal, no cyanosis. Neurovascular intact. Full, normal range of motion. Neuro: Awake and alert, GCS 15, oriented to person, place, time, and situation. Cranial nerves II-XII grossly intact. Motor strength 5/5 in all extremities. Sensory grossly intact. Cerebellar exam normal. Normal gait. Psych: Awake, alert, with orientation to person, place and time. Behavior, mood, and affect are within normal limits. 11:19 Radiologist reports: MRI 8 MM SA LEFT BG INFARCT [facility] Vital Signs: 08:15 BP 157 / 75; Pulse 76; Resp 24; Temp 97.0(TE); Pulse Ox 100% on R/A; Weight 108.41 kg; ss Height 5 ft. 5 in. (165.10 cm); Pain 0/10; 10:48 BP 141 / 63; Pulse 74; Resp 16; Pulse Ox 100% ; sv 11:45 BP 164 / 93; Pulse 78; Resp 16; Pulse Ox 99% on R/A; Pain 0/10; hb 12:45 BP 179 / 77; Pulse 84; Resp 18; Pulse Ox 100% ; sv 13:45 BP 207 / 98; Pulse 81; Resp 17; Pulse Ox 100% ; sv 15:00 BP 161 / 82; Pulse 97; Resp 17; Pulse Ox 99% ; hb 08:15 Body Mass Index 39.77 (108.41 kg, 165.10 cm) NIH Stroke Scale Scores: 08:57 NIHSS Score: 0 chioma MDM: 08:10 Patient medically screened. chioma 08:59 Data reviewed: vital signs, nurses notes, lab test result(s), EKG, radiologic studies, chioma doppler, MRI, plain films. 07/28 08:56 Order name: Basic Metabolic Panel; Complete Time: 11:18 [facility] 07/28 08:56 Order name: CBC with Diff; Complete Time: 11:18 [facility] 07/28 08:56 Order name: LFT's; Complete Time: 11:18 [facility] 07/28 08:56 Order name: Magnesium; Complete Time: 11:18 [facility] 07/28 08:56 Order name: NT PRO-BNP; Complete Time: 11:18 [facility] 07/28 08:56 Order name: PT-INR; Complete Time: 11:18 [facility] 07/28 08:56 Order name: Troponin (emerg Dept Use Only); Complete Time: 11:18 [facility] 07/28 08:56 Order name: XRAY Chest (1 view); Complete Time: 11:18 [facility] 07/28 08:56 Order name: Urine Culture [facility] 07/28 08:56 Order name: Lipase; Complete Time: 11:18 [facility] 07/28 08:56 Order name: Blood Culture Adult (2) [facility] 07/28 08:56 Order name: Lactate; Complete Time: 11:18 chioma 07/28 09:04 Order name: Urine Dipstick--Ancillary (enter results); Complete Time: 11:18 07/28 11:16 Order name: Manual Differential; Complete Time: 11:18 EDMS 07/28 08:56 Order name: EKG; Complete Time: 08:57 chioma 07/28 08:56 Order name: Cardiac monitoring; Complete Time: 10:47 [facility] 07/28 08:56 Order name: EKG - Nurse/Tech; Complete Time: 10:47 chioma 07/28 08:56 Order name: IV Saline Lock; Complete Time: 10:47 chioma 07/28 08:56 Order name: Labs collected and sent; Complete Time: 10:47 [facility] 07/28 08:56 Order name: O2 Per Protocol; Complete Time: 10:47 [facility] 07/28 08:56 Order name: O2 Sat Monitoring; Complete Time: 10:47 [facility] 07/28 08:56 Order name: US Carotid Artery Bilateral; Complete Time: 11:18 chioma 07/28 10:14 Order name: Brain Wo Cont; Complete Time: 11:18 EDMS 07/28 08:56 Order name: Urine Dipstick-Ancillary (obtain specimen); Complete Time: 08:59 [facility] Administered Medications: 09:54 Drug: NS 0.9% 1000 ml Route: IV; Rate: 1 bolus; Site: Port-a-cath; hb 09:54 Drug: foLIC Acid 1 mg Route: IVPB; Site: Port-a-cath; hb 10:50 Drug: NS 0.9% 1000 ml Route: IV; Rate: 1 bolus; Site: Port-a-cath; hb 11:24 Drug: Cefepime 2 grams Route: IVPB; Rate: 200 ml/hr; Infused Over: 30 mins; Site: hb Port-a-cath; 11:26 Drug: vancoMYCIN 1 grams Route: IVPB; Infused Over: 2 hrs; Site: Port-a-cath; hb 11:49 Drug: Aspirin Chewable Tablet 324 mg Route: PO; hb Disposition: 07/29/19 11:22 Hospitalization ordered by Rodrigue Esparza for Inpatient Admission. Preliminary diagnosis are Weakness, Cerebral infarction - SUBACUTE LEFT BG, 8 MM NON HEMORRHAGIC, Type 2 diabetes mellitus, Neutropenia. - Bed requested for Telemetry/MedSurg (Inpatient). - Status is Inpatient Admission. sv - Condition is Fair. - Problem is new. - Symptoms have improved. NIH Stroke Scale - NIH Stroke Score Date: 07/29/2019 Time: 08:57 Total Score = 0 1a. Level of Consciousness (LOC) - 0(Alert) 1b. Level of Consciousness (LOC) (Year \T\ Age) - 0(Both) 1c. LOC Commands (Open \T\ Closes Eyes/Manager [employer] Planning) - 0(Both) 2. Best Gaze (Lateral Gaze Paresis) - 0(Normal) 3. Visual Field Loss - 0(No visual loss) 4. Facial Palsy - 0(Normal) 5a. Left Arm: Motor (10-second hold) - 0(No drift) 5b. Right Arm: Motor (10-second hold) - 0(No drift) 6a. Left Leg: Motor (5-second hold - always test supine) - 0(No drift) 6b. Right Leg: Motor (5-second hold - always test supine) - 0(No drift) 7. Limb Ataxia (finger/nose \T\ heel/adams - test with eyes open) - 0(Absent) 8. Sensory Loss (pinprick arms/legs/face) - 0(Normal) 9. Best Language: Aphasia (description/naming/reading) - 0(No aphasia) 10. Dysarthria (speech clarity - read or repeat words) - 0(Normal) 11. Extinction and Inattention (visual/tactile/auditory/spatial/personal) - 0(No abnormality) Initials: [facility] Signatures: Dispatcher [employer] EDPA Sarita Daly Stephanie, RN RN sv Anderson, Corey, MD MD cha Smirch, Shelby, RN RN ss Baxter, Heather, RN RN Corrections: (The following items were deleted from the chart) 10:14 08:57 MR STROKE PROTOCOL+MRI.[email or web address].SHAWN ordered. [facility] EDPA 11:24 11:22 Hospitalization Ordered by Lydia Glover MD for Inpatient Admission. [facility] Preliminary diagnosis is Weakness; Cerebral infarction - SUBACUTE LEFT BG, 8 MM NON HEMORRHAGIC; Type 2 diabetes mellitus. Bed requested for Telemetry/MedSurg (Inpatient). Status is Inpatient Admission. Condition is Fair. Problem is new. Symptoms have improved. [facility] 11:25 11:24 07/29/2019 11:22 Hospitalization Ordered by Lydia Glover MD for Inpatient chioma Admission. Preliminary diagnosis is Weakness; Cerebral infarction - SUBACUTE LEFT BG, 8 MM NON HEMORRHAGIC; Type 2 diabetes mellitus; Neutropenia. Bed requested for Telemetry/MedSurg (Inpatient). Status is Inpatient Admission. Condition is Fair. Problem is new. Symptoms have improved. chioma 13:52 11:25 07/29/2019 11:22 Hospitalization Ordered by Rodrigue Esparza DO for bd Inpatient Admission. Preliminary diagnosis is Weakness; Cerebral infarction - SUBACUTE LEFT BG, 8 MM NON HEMORRHAGIC; Type 2 diabetes mellitus; Neutropenia. Bed requested for Telemetry/MedSurg (Inpatient). Status is Inpatient Admission. Condition is Fair. Problem is new. Symptoms have improved. chioma 15:41 13:52 07/29/2019 11:22 Hospitalization Ordered by Rodrigue Esparza DO for sv Inpatient Admission. Preliminary diagnosis is Weakness; Cerebral infarction - SUBACUTE LEFT BG, 8 MM NON HEMORRHAGIC; Type 2 diabetes mellitus; Neutropenia. Bed requested for Telemetry/MedSurg (Inpatient). Status is Inpatient Admission. Condition is Fair. Problem is new. Symptoms have improved. bd
--- NOTE | 2019-07-29 11:22 | ER ---
Nurse's Notes [facility] Name: Martha Patel Age: 59 yrs Sex: Female : 1960 Arrival Date: 07/29/2019 Time: 08:04 Bed 5 Private MD: Shelly Antoine Diagnosis: Weakness;Cerebral infarction-SUBACUTE LEFT BG, 8 MM NON HEMORRHAGIC;Type 2 diabetes mellitus;Neutropenia Presentation: 07/28 08:15 Chief complaint: Patient states: R sided numbness x 6 days. Pt reports she was seen in the ER last Monday for the same complaints and that her CT scan was negative for stroke, but she is still having the numbness, but knows "something is wrong.". Coronavirus screen: Patient denies a cough. Patient denies shortness of breath or difficulty breathing. Patient denies measured and/or subjective temperature greater than 100.4F prior to today's visit. Patient denies travel on a cruise ship or to a country the [facility] currently lists as an affected area. Patient denies contact with known and/or suspected case of COVID-19. Ebola Screen: Patient denies exposure to infectious person. Patient denies travel to an Ebola-affected area in the 21 days before illness onset. Initial Sepsis Screen: Does the patient meet any 2 criteria? RR > 20 per min. Does the patient have a suspected source of infection? No. Patient's initial sepsis screen is negative. Risk Assessment: Do you want to hurt yourself or someone else? Patient reports no desire to harm self or others. Onset of symptoms was July 24, 2019. 08:15 Method Of Arrival: Wheelchair 08:15 Acuity: LISANDRO 3 ss Historical: - Allergies: 08:17 No Known Allergies; ss - PMHx: 08:17 Cancer, Breast; Diabetes - NIDDM; Hypertension; ss - PSHx: 08:17 Hysterectomy; ss - Immunization history:: Adult Immunizations up to date. - Social history:: Smoking status: Patient denies any tobacco usage or history of. - Family history:: not pertinent. Screenin:08 Abuse screen: Denies threats or abuse. Denies injuries from another. Nutritional hb screening: No deficits noted. Tuberculosis screening: No symptoms or risk factors identified. Fall Risk Total Mckenzie Fall Scale indicates Low Risk Score (25-44 pts). Fall prevention measures have been instituted. Side Rails Up X 2 Frequent Obs/Assesments occuring As available Patient and Family Educated on Fall Prevention Program and strategies. 11:32 Patient has been NPO before screening. The patient is alert, able to follow commands. hb The patient does not exhibit slurred or garbled speech The patient is not exhibiting difficulty speaking. The patient does not exhibit difficulty understanding words. The patient is able to swallow own secretions with no drooling or need for suction. Patient tolerated one teaspoon of water. No drooling, immediate coughing, gurgling, or clearing of the throat was noted. The patient tolerated 90mL of water. No drooling, immediate coughing, gurgling, or clearing of the throat was noted. The patient passed the bedside swallow screening. Oral medications may be given as ordered. Contact Physician for further diet orders. Assessment: 08:25 General: Appears in no apparent distress. Behavior is calm, cooperative. Pain: Denies hb pain. Neuro: Level of Consciousness is awake, alert, obeys commands, Oriented to person, place, time, situation, Reports dizziness, x 6 days. Cardiovascular: Capillary refill < 3 seconds Patient's skin is warm and dry. Respiratory: Airway is patent Respiratory effort is even, unlabored, Respiratory pattern is regular, symmetrical. GI: No signs and/or symptoms were reported involving the gastrointestinal system. : No signs and/or symptoms were reported regarding the genitourinary system. EENT: No signs and/or symptoms were reported regarding the EENT system. Derm: Skin is pink, warm \\T\\ dry. Musculoskeletal: No signs and/or symptoms reported regarding the musculoskeletal system. 09:15 Reassessment: Patient appears in no apparent distress at this time. Patient and/or hb family updated on plan of care and expected duration. Pain level reassessed. Patient is alert, oriented x 3, equal unlabored respirations, skin warm/dry/pink. 09:55 Reassessment: Pt to MRI via stretcher. hb 10:50 Reassessment: Patient appears in no apparent distress at this time. No changes from hb previously documented assessment. Patient and/or family updated on plan of care and expected duration. Pain level reassessed. 11:49 Reassessment: Pt to bathroom via wheelchair. Assisted back to bed, bed locked in low hb position, call light within reach. NAD. 13:00 Reassessment: Patient appears in no apparent distress at this time. No changes from previously documented assessment. Patient and/or family updated on plan of care and expected duration. Pain level reassessed. 14:00 Reassessment: Patient appears in no apparent distress at this time. Patient and/or hb family updated on plan of care and expected duration. Pain level reassessed. Patient is alert, oriented x 3, equal unlabored respirations, skin warm/dry/pink. 14:15 Reassessment: Admission ordered, receiving nurse unavailable at this time. Charge Nurse darien Bedolla RN and Gun Number Oneal ROGERS aware. 15:00 Reassessment: Patient appears in no apparent distress at this time. No changes from previously documented assessment. Patient and/or family updated on plan of care and expected duration. Pain level reassessed. Patient is alert, oriented x 3, equal unlabored respirations, skin warm/dry/pink. Vital Signs: 08:15 BP 157 / 75; Pulse 76; Resp 24; Temp 97.0(TE); Pulse Ox 100% on R/A; Weight 108.41 kg; ss Height 5 ft. 5 in. (165.10 cm); Pain 0/10; 10:48 BP 141 / 63; Pulse 74; Resp 16; Pulse Ox 100% ; sv 11:45 BP 164 / 93; Pulse 78; Resp 16; Pulse Ox 99% on R/A; Pain 0/10; hb 12:45 BP 179 / 77; Pulse 84; Resp 18; Pulse Ox 100% ; sv 13:45 BP 207 / 98; Pulse 81; Resp 17; Pulse Ox 100% ; sv 15:00 BP 161 / 82; Pulse 97; Resp 17; Pulse Ox 99% ; hb 08:15 Body Mass Index 39.77 (108.41 kg, 165.10 cm) NIH Stroke Scale Scores: 08:57 NIHSS Score: 0 chioma ED Course: 08:04 Patient arrived in ED. am2 08:05 Shelly Antoine MD is Private Physician. am2 08:05 Dave Humphrey MD is Attending Physician. chioma 08:15 Arm band placed on right wrist. ss 08:17 Triage completed. ss 08:40 Patient has correct armband on for positive identification. Placed in gown. Bed in low hb position. Call light in reach. Side rails up X2. 08:58 Autumn Mendoza, RN is Primary Nurse. hb 09:24 XRAY Chest (1 view) In Process Unspecified. EDMS 09:25 Initial lab(s) drawn, by me, sent to lab. First set of blood cultures drawn by me. sv Accessed Port-a-Cath. using accessed w/ # 20 Cabrera needle, ,sterile technique, per hospital protocol. Clean \\T\\ dry. Dressing intact. Good blood return. Flushes easily. 10:04 EKG done, by solar panel technician. reviewed by Dave Humphrey MD. at1 10:14 Brain Wo Cont In Process Unspecified. EDMS 10:39 Patient moved back from ultrasound. sv 10:47 US Carotid Artery Bilateral Sent. sv 10:48 US Carotid Artery Bilateral In Process Unspecified. EDMS 11:20 Lydia Glover MD is Hospitalizing Provider. chioma 11:25 Rodrigue Esparza DO is Hospitalizing Provider. chioma Administered Medications: 09:54 Drug: NS 0.9% 1000 ml Route: IV; Rate: 1 bolus; Site: Port-a-cath; hb 09:54 Drug: foLIC Acid 1 mg Route: IVPB; Site: Port-a-cath; hb 10:50 Drug: NS 0.9% 1000 ml Route: IV; Rate: 1 bolus; Site: Port-a-cath; hb 11:24 Drug: Cefepime 2 grams Route: IVPB; Rate: 200 ml/hr; Infused Over: 30 mins; Site: hb Port-a-cath; 11:26 Drug: vancoMYCIN 1 grams Route: IVPB; Infused Over: 2 hrs; Site: Port-a-cath; hb 11:49 Drug: Aspirin Chewable Tablet 324 mg Route: PO; hb Outcome: 11:22 Decision to Hospitalize by Provider. chioma 15:41 Patient left the ED. sv NIH Stroke Scale - NIH Stroke Score Date: 07/29/2019 Time: 08:57 Total Score = 0 1a. Level of Consciousness (LOC) - 0(Alert) 1b. Level of Consciousness (LOC) (Year \\T\\ Age) - 0(Both) 1c. LOC Commands (Open \\T\\ Closes Eyes/Poultry [employer]er) - 0(Both) 2. Best Gaze (Lateral Gaze Paresis) - 0(Normal) 3. Visual Field Loss - 0(No visual loss) 4. Facial Palsy - 0(Normal) 5a. Left Arm: Motor (10-second hold) - 0(No drift) 5b. Right Arm: Motor (10-second hold) - 0(No drift) 6a. Left Leg: Motor (5-second hold - always test supine) - 0(No drift) 6b. Right Leg: Motor (5-second hold - always test supine) - 0(No drift) 7. Limb Ataxia (finger/nose \\T\\ heel/adams - test with eyes open) - 0(Absent) 8. Sensory Loss (pinprick arms/legs/face) - 0(Normal) 9. Best Language: Aphasia (description/naming/reading) - 0(No aphasia) 10. Dysarthria (speech clarity - read or repeat words) - 0(Normal) 11. Extinction and Inattention (visual/tactile/auditory/spatial/personal) - 0(No abnormality) Initials: chioma Signatures: Dispatcher [employer] Beena Stephen, RN Dave Hamm MD MD cha Smirch, Shelby RN RN Claudia Jones, clinical rehab specialist EKG Tat1 Autumn Mendoza RN RN Claudia Valdivia am2
--- NOTE | 2019-07-29 12:49 | P.HP ---
Certification for Inpatient Patient admitted to: Inpatient With expected LOS: >2 Midnights Patient will require the following post-hospital care: Home Health Services Practitioner: I am a practitioner with admitting privileges, knowledge of patient current condition, hospital course, and medical plan of care. Services: Services provided to patient in accordance with Admission requirements found in Title 42 Section 412.3 of the Code of Federal Regulations Patient History Date of Service: 07/29/19 Primary Care Provider: Dr. Palumbo; Oncology-Dr. Morales Reason for admission: Right sided numbness and weakness History of Present Illness: 59 yo CF with history of Triple negative Breast cancer, DM, HTN, and former tobacco. Patient presented with headaches, drowsniess and right-sided numbness and weakness to the face and upper and lower extremities. Patient had apparently been seen last week in the ER with similar symptoms after she started chemotherapy. Today symptoms worsen. She noted a headache, drowsiness and right-sided numbness and some weakness to the upper lower extremities. She came to the ER for further evaluation. Patient denied any chest pain, shortness of breath, headaches or fever. In the ER patient evaluated. CBC unremarkable. Sodium 136, potassium 3.9, BUN of 19, creatinine 0.8. GFR of 81. Glucose 312. Lactic acid troponin LFTs unremarkable. Urinalysis unremarkable. Brain MRI shows 8 mm subacute nonhemorrhagic infarction to the left basal ganglia. Patient admitted for further evaluation and treatment. When I saw the patient ER, she appeared stable. She is without significant distress. Patient reports that she does not taking any aspirin. She is not on any statin medication. She is scheduled to continue chemotherapy an to get a breast mastectomy. Allergies No Known Allergies Allergy (Unverified 07/04/19 11:36) Home medications list reviewed: Yes Home Medications: Amlodipine Besylate 10 mg PO DAILY 07/04/19 Bimatoprost [Lumigan Opthalmic Drops*] 1 gtt EACH EYE DAILY 07/04/19 Brimonidine Tartrate/Timolol [Combigan 0.2%-0.5% Eye Drops] 1 gtt EACH EYE DAILY 07/04/19 Budesonide/Formoterol Fumarate [Symbicort 160-4.5 Mcg Inhaler] 1 puff IH PRN PRN 07/04/19 Codeine/APAP [Tylenol #3*] 1 tab PO TID PRN 07/04/19 - Past Medical/Surgical History Diabetic: Yes -: Diabetes mellitus type 2 non-insulin dependent -: Hypertension -: Triple negative breast cancer -: Former tobacco use -: Right Port-A-Cath -: Hysterectomy Psychosocial/ Personal History: Patient is - Family History Sister -: Diabetes, Stroke Father -: Cancer (Throat cancer) - Social History Smoking Status: Former smoker Alcohol use: No CD- Drugs: No Caffeine use: No Place of Residence: Home Review of Systems General: Weakness, As per HPI Eyes: Unremarkable ENT: Unremarkable Respiratory: Unremarkable Cardiovascular: Light Headedness, As per HPI Gastrointestinal: Unremarkable Musculoskeletal: Unremarkable Integumentary: Unremarkable Neurological: Weakness, Numbness, As per HPI Lymphatics: Unremarkable Physical Examination - Physical Exam General: Alert, In no apparent distress, Oriented x3, Other (Mild anxiety noted) HEENT: Atraumatic, Normocephalic, Mucous membr. moist/pink, Other (Some numbness to the right side of the face), EOMI Neck: Supple Respiratory: Clear to auscultation bilaterally, Normal air movement Cardiovascular: Normal pulses, Regular rate/rhythm Gastrointestinal: Normal bowel sounds, Soft and benign, Non-distended, No tenderness, No masses, No rebound, No guarding Musculoskeletal: No contractures, No erythema, No tenderness, No warmth Integumentary: No tenderness/swelling, No erythema, No warmth, No cyanosis Neurological: Normal speech, Normal strength at 5/5 x4 extr, Normal tone, Normal affect, Abnormal sensation (Numbness to the right side of the face and upper lower extremities.) - Studies Laboratory Data (last 24 hrs) 07/29/19 09:26: PT 12.3, INR 1.04 07/29/19 09:26: WBC 2.7 L D, Hgb 13.3, Hct 39.7, Plt Count 181 D 07/29/19 09:26: Sodium 136, Potassium 3.9, BUN 19 H, Creatinine 0.87, Glucose 312 H, Magnesium 1.9, Total Bilirubin 0.7, AST 4 L, ALT 19, Alkaline Phosphatase 135 H, Lipase 65 L Assessment and Plan - Plan Impression: Right-sided facial paresthesias with upper/lower extremity paresthesias and mild weakness secondary to 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 Stroke protocol in place. Will start aspirin, folic acid, Lipitor and blood pressure medication. Case discussed with Neurology. Speech, physical therapy and occupational therapy will further evaluate patient. Also discussed with oncology. Oncology prefers the patient go home with home health and physical therapy as the patient will require continued chemotherapy and surgery. Will provide DVT prophylaxis-Lovenox. Will continue to monitor and assess. Case also discuss with . Diabetes mellitus type 2 with hyperglycemia: Will check A1c. Will continue Accu-Cheks. Will provide sliding scale. Hypertension: Continue Norvasc. Will monitor and adjust appropriately. Triple negative breast cancer on chemotherapy: Case discussed with oncology. Patient will need to continue with chemotherapy and is scheduled for surgery- breast mastectomy in the near future. Anxiety: Continue with medication. Former tobacco use: Patient reports she no longer smokes. Discharge Plan: Home Plan to discharge in: 72 Hours - Advance Directives Does patient have a Living Will: No Does patient have a Durable POA for Healthcare: No - Code Status/Comfort Care Code Status Assessed: Yes (Patient is full code) Time Spent Managing Pts Care (In Minutes): 55
[2019-07-29] MEDS ORDERED: ONDANSETRON 4 MG/2 ML VIAL IV PRN (15:47)
[2019-07-29 16:19] VITALS: BMI 36.8
[2019-07-29] MEDS: INSULIN -REGULAR HUMAN 50 UNIT/0.5 ML ML SQ SCH ×2 (16:30→21:00)
[2019-07-29] MEDS: ENOXAPARIN 40 MG/0.4 ML SQ SCH (16:44)
[2019-07-29] MEDS: NA CHLORIDE 0.9% 1,000 ML IV SCH (16:44)
--- NOTE | 2019-07-29 16:48 | EKG ---
Test Date: 2019-07-29 Test Time: 09:33:13 [employer] Journeyman: DEEPTI MEASUREMENT RESULTS: Intervals: Rate: 66 WV: 124 QRSD: 88 QT: 394 QTc: 413 [place]: P: 64 WV: 124 QRS: 4 T: 98 INTERPRETIVE STATEMENTS: Normal sinus rhythm T wave abnormality, consider lateral ischemia Abnormal ECG Compared to ECG 07/04/2019 11:53:01 T-wave abnormality now present Possible ischemia now present Ventricular premature complex(es) no longer present Electronically Signed On 07-29-19 16:47:17 CDT by Genaro Jewell
[2019-07-29] MEDS: ACETAMINOPHEN 500 MG TAB PO PRN (20:59)
[2019-07-29] MEDS: ATORVASTATIN 40 MG TAB PO SCH (21:00)
[2019-07-29] MEDS ORDERED: POTASSIUM CL SA 10 MEQ TAB PO ONE (21:00)
[2019-07-29] MEDS: FAMOTIDINE 20 MG TAB PO SCH (21:01)
[2019-07-30] MEDS: ACETAMINOPHEN 500 MG TAB PO PRN ×2 (01:33→22:15)
[2019-07-30] MEDS: NA CHLORIDE 0.9% 1,000 ML IV SCH ×2 (05:07→16:05)
[2019-07-30 07:59] LABS: BUN Blood Urea Nitrogen 11 mg/dL (7-18); Bicarbonate 25 mmol/L (21-32); Glucose Level 189 mg/dL (74-106); HDL Cholesterol 40 mg/dL (40-60); LDL Cholesterol, Calculated 77 (<130); Sodium Level 141 mmol/L (136-145); T4,Total 9.2 ug/dL (4.8-13.9)
[2019-07-30 08:35] LABS: Basophils % 0.3 % (0-1.3); Hematocrit 34.8 % (36.0-45.0); Lymphocytes % 36.3 % (15.3-44.8); MPV 9.6 fL (7.6-11.3); RBC Red Blood Cell Count 3.92 M/uL (3.86-4.86)
[2019-07-30] MEDS ORDERED: AMLODIPINE 5 MG TAB PO SCH (09:00)
[2019-07-30] MEDS: ASPIRIN EC 81 MG TAB PO SCH (09:28)
[2019-07-30] MEDS: FOLIC ACID 1 MG TABLET PO SCH (09:28)
[2019-07-30] MEDS: ENOXAPARIN 40 MG/0.4 ML SQ SCH (09:28)
[2019-07-30] MEDS: FAMOTIDINE 20 MG TAB PO SCH ×2 (09:28→21:06)
[2019-07-30] MEDS: INSULIN -REGULAR HUMAN 50 UNIT/0.5 ML ML SQ SCH ×4 (09:29→20:59)
[2019-07-30] MEDS: ATORVASTATIN 40 MG TAB PO SCH (21:06)
[2019-07-30] MEDS ORDERED: AMLODIPINE 5 MG TAB PO ONE (22:59)
[2019-07-30] MEDS ORDERED: MAGNESIUM HYDROXIDE 8% 30 ML PO PRN (23:04)
--- NOTE | 2019-07-30 23:46 | P.PN ---
Subjective Date of Service: 07/29/19 Subjective: No new changes, No C/O voiced Patient is uncomfortable going home. She is also runs sure if she wants to do any more chemotherapy because she is care she will have another stroke. Her is busy working and he is unable to care for her so her preference would be to go to inpatient rehab. That way she can build up her strength & then go home in the next couple weeks. Will discuss with Neurology and Hematology prior to making decision. Review of Systems 10-point ROS is otherwise unremarkable Physical Examination - Vital Signs Temperature: 99.4 F Blood Pressure: 190/80 Pulse: 57 Respirations: 18 Pulse Ox (%): 98 - Physical Exam General: Alert, In no apparent distress, Oriented x3 Respiratory: Clear to auscultation bilaterally, Normal air movement Cardiovascular: Regular rate/rhythm, Normal S1 S2 Gastrointestinal: Normal bowel sounds, Soft and benign, Non-distended, No tenderness Musculoskeletal: No clubbing, No swelling, No tenderness Neurological: Abnormal speech (Patient w/ some aphasia but she states her speech is improved), Abnormal strength (Right-sided strength diminished at 4/5 in the upper and lower extremity), Abnormal cranial nerve function - Studies Medications List Reviewed: Yes Assessment & Plan - Problems (Diagnosis) (1) Infarction of left basal ganglia Current Visit: Yes Status: Acute (2) History of breast cancer Current Visit: Yes Status: Acute (3) Status post chemotherapy Current Visit: Yes Status: Acute (4) Hypertension Current Visit: Yes Status: Acute Qualifiers: Hypertension type: other secondary hypertension Qualified Code(s): I15.8 - Other secondary hypertension - Plan Plan: 1. Continue with anti-platelet therapy and statin therapy 2. Continue with physical therapy and occupational therapy along with speech therapy 3. Rehab consultation 4. Slowly lower blood pressure over the next 48-72 hr. Decrease MAP by 25% albaro ly 5. DVT prophylaxis 6. Monitor labs closely Discharge Plan: Home Plan to discharge in: Greater than 2 days - Advance Directives Does patient have a Living Will: No Does patient have a Durable POA for Healthcare: No - Code Status/Comfort Care Code Status Assessed: Yes Code Status: Full Code Critical Care: No Time Spent Managing PTS Care (In Minutes): 35
--- NOTE | 2019-07-30 23:50 | P.PN ---
Subjective Date of Service: 07/30/19 Will get rehab consultation and try to transfer patient to rehab in a.m.. Will discuss with Hematology regarding patient's wishes. Review of Systems 10-point ROS is otherwise unremarkable Physical Examination - Vital Signs Temperature: 99.4 F Blood Pressure: 190/80 Pulse: 57 Respirations: 18 Pulse Ox (%): 98 - Physical Exam General: Alert, In no apparent distress, Oriented x3 Respiratory: Clear to auscultation bilaterally, Normal air movement Cardiovascular: Regular rate/rhythm, Normal S1 S2, No murmurs Gastrointestinal: Normal bowel sounds, Soft and benign, Non-distended Musculoskeletal: No clubbing, No swelling Neurological: Abnormal strength - Studies Medications List Reviewed: Yes Assessment & Plan - Problems (Diagnosis) (1) Infarction of left basal ganglia Current Visit: Yes Status: Acute (2) History of breast cancer Current Visit: Yes Status: Acute (3) Status post chemotherapy Current Visit: Yes Status: Acute (4) Hypertension Current Visit: Yes Status: Acute Qualifiers: Hypertension type: other secondary hypertension Qualified Code(s): I15.8 - Other secondary hypertension - Plan Plan: Continue with current plan of care as mentioned below: 1. Continue with anti-platelet therapy and statin therapy 2. Continue with physical therapy and occupational therapy along with speech therapy 3. Rehab consultation 4. Slowly lower blood pressure over the next 48-72 hr. Decrease MAP by 25% daily 5. DVT prophylaxis 6. Monitor labs closely - Advance Directives Does patient have a Living Will: No Does patient have a Durable POA for Healthcare: No - Code Status/Comfort Care Code Status: Full Code
[2019-07-31 05:00] LABS: Absolute Lymphocytes (CBC) 1.6 K/uL (0.7-4.9); Basophils % 0.2 % (0-1.3); Hematocrit 34.1 % (36.0-45.0); Lymphocytes % 41.4 % (15.3-44.8); MPV 9.2 fL (7.6-11.3); RBC Red Blood Cell Count 3.87 M/uL (3.86-4.86)
[2019-07-31 05:15] LABS: BUN Blood Urea Nitrogen 10 mg/dL (7-18); Bicarbonate 27 mmol/L (21-32); Glucose Level 169 mg/dL (74-106); Magnesium 2.1 mg/dL (1.8-2.4); Potassium 3.6 mmol/L (3.5-5.1); Sodium Level 143 mmol/L (136-145)
--- NOTE | 2019-07-31 06:20 | CON ---
Reason For Consultation: Consultation called because of stroke. History Of Present Illness: Ms. Patel is a 59-year-old right-handed female patient with hypertension, diabetes mellitus, and history of tobacco use and triple-negative breast cancer, who started chemotherapy and now has a stroke. She was seen in my clinic in May for unequal eye movements present for years. Patient said since she began chemotherapy, she was actually told to stop aspirin after which she developed her symptoms. Her stroke symptoms consisted of right-sided numbness and weakness involving the face, arm and leg. She did not have any cough, shortness of breath, fever, chills, stiffness, or signs of infection. In [facility], her head CT scan showed no acute ischemic or hemorrhagic change, but brain MRI identified a subacute stroke in the left basal ganglia measuring 8 mm. She was placed again on aspirin 162 mg daily along with Lipitor 40 mg at bedtime, Lovenox 40 mg subcutaneously daily, folate 1 mg daily and blood sugars are managed. Past Medical History: As indicated. Allergies: NO KNOWN DRUG ALLERGIES. Medications At Home: Amlodipine 10 mg daily, Lumigan 1 drop each eye daily, Combigan 1 drop each eye daily, Symbicort 1 puff daily, Tylenol No. 3 one 3 times daily as needed. Surgical History: hysterectomy. Family History: The patient has a sister with diabetes and stroke. Father with cancer. Social History: She is . No ETOH, cigarettes and IV drug abuse Review of Systems: As dictated above. No nausea or vomiting, myalgias, arthralgias, headaches or weight change. No cough or shortness of breath. Physical Examination: Vital Signs: Blood pressure 121/90, pulse 74, respiratory rate 16, temperature is afebrile. Weight 221 pounds, height 5 feet 5 inches, BMI 36.8, oxygen saturation 98% on room air. General: Ms. Patel is resting in chair beside the bed. She is fairly functional, actually speaking with the social work instructor. I think that she will be likely discharged home. I told the patient she would likely be a good candidate for inpatient rehabilitation. HEENT: She is normocephalic, atraumatic. Sclerae anicteric. Oropharynx was moist and pink. Neck: Supple. Chest: Clear. Heart: Regular. Extremities: No significant edema, cyanosis, or clubbing. Neurological: She is awake, oriented to situation, place, person. She follows all commands appropriately. Cranial nerve examination remarkable for decreased light touch, pinprick, and temperature over the right face. Otherwise intact cranial nerves. Motor examination, there is strength in the upper and lower extremities proximally and distally bilaterally. Sensory exam decreased to light touch, pinprick, temperature in the right arm, forearm, and in the right trunk, back as well as lower extremity. Coordination examination intact in the upper and lower extremities. Reflexes are symmetric in the upper and lower extremities Gait, she is able to stand and ambulate, tendency to drift off to left hand side. Laboratory Studies: Complete blood count with differential shows white blood cell count slightly low at 3.8 with recent chemotherapy, hemoglobin 11.5, hematocrit 34.8, platelets 150. INR is normal. Chemistries unremarkable except slightly elevated chloride 100 and glucose ranged from 175 to 231. Hemoglobin A1c is 9.8, calcium 8.6, magnesium 2.0. Triglyceride of 211, total cholesterol 159, LDL cholesterol 77, HDL cholesterol 40. TSH 4.68, before 9.2. Her initial lactic acid was elevated at 3.2, subsequent down to 1.8 after hydration. Urinalysis shows 2+ glucose. Her carotid artery ultrasound showed soft plaque, but no evidence of hemodynamically significant stenosis. Electrocardiogram shows normal sinus rhythm, T-wave abnormalities, consider lateral ischemia; and chest x-ray shows no acute intrathoracic process. Assessment: Ms. Patel is a 59-year-old patient with multiple stroke risk factors including hypertension, diabetes mellitus, which is uncontrolled, and triple-negative breast cancer, who started chemotherapy, stopped ASA and had a left basal ganglia subacute stroke. The patient's symptoms consist of right- sided face, arm, leg numbness with no significant weakness. NIH Stroke Scale of 2. Ms. Patel is a 59-year-old patient with multiple stroke risk factors. She had a stroke after stopping aspirin and starting chemotherapy. She has uncontrolled diabetes mellitus, hypertension. Plan: 1. She should be evaluated for inpatient rehabilitation to improve her balance, coordination, gait to reduce the risk injury. 2. Aspirin as indicated 81 mg daily. 3. More aggressive management of diabetes mellitus to target blood sugars closer to normal. 4. Folate 1 mg daily. 5. High dosage statin. 6. Permissive hypertension during subacute stoke. ARIADNA/CICI Voice ID: [id number] Report ID: [id number] MTDYohannes
[2019-07-31] MEDS: INSULIN -REGULAR HUMAN 50 UNIT/0.5 ML ML SQ SCH ×2 (07:30→12:49)
[2019-07-31 08:56] VITALS: O2SAT 97
[2019-07-31] MEDS ORDERED: AMLODIPINE 10 MG TAB PO SCH (09:00)
[2019-07-31] MEDS ORDERED: POTASSIUM CL SA 10 MEQ TAB PO ONE (09:00)
[2019-07-31] MEDS: FOLIC ACID 1 MG TABLET PO SCH (09:09)
[2019-07-31] MEDS: FAMOTIDINE 20 MG TAB PO SCH (09:09)
[2019-07-31] MEDS: NA CHLORIDE 0.9% 1,000 ML IV SCH (09:09)
[2019-07-31] MEDS: ENOXAPARIN 40 MG/0.4 ML SQ SCH (09:10)
[2019-07-31] MEDS: ASPIRIN EC 81 MG TAB PO SCH (09:10)
--- NOTE | 2019-07-31 10:42 | P.DS ---
Discharge Date: 07/31/19 Primary Care Provider: Dr. Palumbo; Oncology-Dr. Morales Disposition: TRANSFER TO INPATIENT REHAB Discharge Condition: GOOD Reason for Admission: Right sided numbness and weakness Consultations: NEUROLOGY - Problems (1) Infarction of left basal ganglia Current Visit: Yes Status: Acute (2) History of breast cancer Current Visit: Yes Status: Acute (3) Status post chemotherapy Current Visit: Yes Status: Acute (4) Hypertension Current Visit: Yes Status: Acute Qualifiers: Hypertension type: other secondary hypertension Qualified Code(s): I15.8 - Other secondary hypertension Brief History of Present Illness: Patient is a 59-year-old female was admitted to the hospital with a left basal ganglia infarct. Patient had right-sided weakness. She had just finished chemotherapy. She was has 10 about restarting chemo but I told her that she really does not have much options because if she does not get the treatment then the cancer will spread. She does Wanna get stronger before restarting chemotherapy so we will go ahead and work with her and try to get her to rehab to strengthen her up. Her is not able to stay with her at home. When she gets her physical therapy she should be able to discharge and resume chemot herapy. Hospital Course: Patient is doing well and is stable for transfer to rehab. Continue physical therapy, anti-platelet therapy, statin therapy, and Neurology follow-up at rehabilitation. Vital Signs/Physical Exam: Temp Pulse Resp BP Pulse Ox 98.6 F 70 16 183/74 H 98 07/31/19 04:00 07/31/19 09:10 07/31/19 04:00 07/31/19 09:10 07/31/19 04:00 General: Alert, In no apparent distress, Oriented x3 Laboratory Data at Discharge: WBC 3.8 K/uL (4.3-10.9) L D 07/31/19 04:31 Hgb 11.4 g/dL (12.0-15.0) L 07/31/19 04:31 Hct 34.1 % (36.0-45.0) L 07/31/19 04:31 Plt Count 166 K/uL (152-406) 07/31/19 04:31 PT 12.3 SECONDS (9.5-12.5) 07/29/19 09:26 INR 1.04 07/29/19 09:26 Sodium 143 mmol/L (136-145) 07/31/19 04:31 Potassium 3.6 mmol/L (3.5-5.1) 07/31/19 04:31 BUN 10 mg/dL (7-18) 07/31/19 04:31 Creatinine 0.72 mg/dL (0.55-1.3) 07/31/19 04:31 Glucose 169 mg/dL (74-106) H 07/31/19 04:31 Magnesium 2.1 mg/dL (1.8-2.4) 07/31/19 04:31 Total Bilirubin 0.7 mg/dL (0.2-1.0) 07/29/19 09:26 AST 4 U/L (15-37) L 07/29/19 09:26 ALT 19 U/L (12-78) 07/29/19 09:26 Alkaline Phosphatase 135 U/L (45-117) H 07/29/19 09:26 Triglycerides 211 mg/dL (<150) H 07/30/19 05:50 Cholesterol 159 mg/dL (<200) 07/30/19 05:50 HDL Cholesterol 40 mg/dL (40-60) 07/30/19 05:50 Cholesterol/HDL Ratio 3.98 07/30/19 05:50 Lipase 65 U/L (73-393) L 07/29/19 09:26 Home Medications: Amlodipine Besylate 10 mg PO DAILY 07/04/19 Bimatoprost [Lumigan Opthalmic Drops*] 1 gtt EACH EYE DAILY 07/04/19 Brimonidine Tartrate/Timolol [Combigan 0.2%-0.5% Eye Drops] 1 gtt EACH EYE DAILY 07/04/19 Budesonide/Formoterol Fumarate [Symbicort 160-4.5 Mcg Inhaler] 1 puff IH PRN PRN 07/04/19 Codeine/APAP [Tylenol #3*] 1 tab PO TID PRN 07/04/19 Metformin HCl 1 tab PO BID 07/29/19 Aspirin [Aspirin EC 81 MG] 162 mg PO DAILY #60 tablet. 07/31/19 Atorvastatin Calcium [Lipitor] 40 mg PO BEDTIME #30 tab 07/31/19 Losartan Potassium [Cozaar*] 50 mg PO BID #60 tablet 07/31/19 New Medications: Aspirin [Aspirin EC 81 MG] 162 mg PO DAILY #60 tablet. Losartan Potassium [Cozaar*] 50 mg PO BID #60 tablet Atorvastatin Calcium [Lipitor] 40 mg PO BEDTIME #30 tab Patient Discharge Instructions: OK TO DC IV AND DC to inpatient rehab. FOLLOW- UP WITH PRIMARY CARE PROVIDER IN 1-2 WEEKS. FOLLOW-UP WITH Neurologist IN 1-2 WEEKS. FOLLOW WITH ONCOLOGY IN 2-4 WEEKS. RETURN TO THE ER IF symptoms worsen. CALL or TEXT DR. LESTER AT [phone] IF ANY QUESTIONS REGARDING HOSPITAL STAY. PLEASE CALL THE FLOOR AT [phone] IF ANY MEDICATION OR NURSING QUESTIONS. Diet: AHA Activity: Ad vijay Time spent managing pt's care (in minutes): 30
[2019-07-31 13:03] VITALS: BP 184/74; TEMP 97.3
== END 2019-07-31 12:58 | DRG 65 ==
LOC: ER 08:02 → ERHOLD 12:05 → 2ND 15:16
PROVIDERS: ADMIT Family Medicine; ATTEND Hospitalist
DX: I63.89 Other cerebral infarction (principal); G81.91 Hemiplegia, unspecified affecting right dominant side; I15.8 Other secondary hypertension; Z79.84 Long term (current) use of oral hypoglycemic drugs; Z79.82 Long term (current) use of aspirin; Z79.899 Other long term (current) drug therapy; Z79.891 Long term (current) use of opiate analgesic; Z92.21 Personal history of antineoplastic chemotherapy; Z87.891 Personal history of nicotine dependence; R29.700 NIHSS score 0; Z90.710 Acquired absence of both cervix and uterus; R20.2 Paresthesia of skin; E11.65 Type 2 diabetes mellitus with hyperglycemia; C50.919 Malignant neoplasm of unspecified site of unspecified female breast; Z85.3 Personal history of malignant neoplasm of breast; F41.9 Anxiety disorder, unspecified
CPT/HCPCS: 36415; 70551; 71045; 80048; 80061; 80076; 81003; 82947; 83036; 83605; 83690; 83735; 83880; 84436; 84443; 84484; 85025; 85610; 87040; 87086; 87088; 92523; 93005; 93880; 96374; 96375; 97116; 97161; 97530; 99285; J0692; J1650; J2405; J3370; J7030

== ENCOUNTER 2019-07-31 13:11 | Inpatient (IN) | payer OTHER ==
--- NOTE | 2019-07-31 12:03 | R.PREADM ---
SCREENING DATE AND TIME 07/30/2019 15:59 (CDT) ANTICIPATED REHAB ADMISSION DATE 08/01/2019 REFERRING FACILITY [facility] REFERRAL DATE AND TIME 07/30/2019 12:09 (CDT) REFERRAL ROOM# 202 ACUTE ADMIT DATE 07/29/2019 Previous Rehabilitation(s): No. 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 Palacios REHAB FACILITY [facility] CLINICAL LIAISON Alejandro Tom PHYSICIAN REVIEWER Dr. Kodak Mcelroy M.D. MR# [id number] NAME ANGE CUBA SEPTEMBER ADDRESS [address] [place] [address] [place] [place]IP [id number] DATE OF 1960 AGE 59 SSN# [id number] GENDER female MARITAL STATUS RACE white PREF. LANGUAGE (IF NON-STATELESS) Niuean ADMIT FROM 02 - [facility] PRE-HOSPITAL LIVING SETTING 01 - Home (private home/apt. board/care, assisted living, fci, transitional living) HOME TYPE AND DETAILS Type of home: single family house # of steps to enter the residence: 0 # of levels in the residence: 1 # of steps within the residence: 3 Prior to recent hospitalization, pt was living in a single story home with her . pt's home co nsists of 3 small buildings connected with decks. pt has up to 3 stairs to negotiate between buildin gs with bilateral HRs at times as well as unilateral HRs. pt reports being Independent with ADLs and self cares without the use of an AD. pt states she does have a SC. pt has a whirlpool style tub. PRE-HOSPITAL LIVING WITH Family/Relatives FAMILY SUPPORT Yes PRIMARY FAMILY CONTACT NAME Dave Jorge PRIMARY FAMILY CONTACT PHONE IS PRIMARY FAMILY CONTACT AUTH. REP.? no 1ST EMERGENCY CONTACT Dave Cuba 1ST CONTACT PHONE IS 1ST CONTACT AUTH. REP.? no PHONE 2ND CONTACT ON ADM.? no PATIENT EMPLOYMENT STATUS Not Working PATIENT EMPLOYER No Employer PAYOR INFORMATION: 1ST PAYOR NAME [employer] 1ST PAYOR PHONE 1ST PAYOR AUTHORIZATION# [id number] 1ST PAYOR INJURY/ILLNESS DUE TO ACCIDENT? No ANOTHER LIBERTARIAN RESPONSIBLE? 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 ONSET DATE 07/29/2019 REHAB IMPAIRMENT CATEGORY (JOAQUIM): 01 Stroke (STR) MEETS 60% rule AFFECTED EXTREMITIES: RLE, and RUE PRIMARY DIAGNOSIS-RELATED SURGERIES: No surgeries related to the primary diagnosis were performed. SUMMARY OF ACUTE HOSPITALIZATION: Pt. is a 59 yo Right-handed white female. On 07/29/2019 Pt. presented to [facility] with sudden onset of right-side weakness. 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 . Her impairment category is Stroke 01 - Right Body (Left Brain) (01.2). Pre-morbidly, Pt. was independent/mod-I in Transfers Control, Locomotion, and Self-Care; and she had good Balance, Safety Awareness, Social Cognition, and Communication. Currently, she has deficits of Transfers Control, Locomotion, Safety Awareness, Balance, Self-Care, S ocial Cognition, and Communication. Pt. is now referred to [facility] for acute in-patient rehabilitation in order to maximize patient's functional independence in activities of daily living, strength, ROM, and mobi lity. Patient has realistic goal of being discharged at assistance level 6-Soledad to reside at Home with Fam belkis/Relatives. 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 Former Tobacco Use DEPRESSION PAST SURGICAL HISTORY: Right Port-A-Cath HYSTERECTOMY MEDICATION ALLERGIES: No Known Drug Allergies (NKDA) ENVIRONMENTAL ALLERGIES: None Known - Substance Allergies None Known - Other Allergies None Known CODE STATUS: Full code WEIGHT/HEIGHT/BMI: WEIGHT 221 lbs HEIGHT 5' 5" BMI 36.8 DIET: - Diet Type Regular - Diet - Solid Texture Regular - Diet - Liquid Texture Regular - Tube Feed N/A REVIEW OF SYSTEMS: - Gen Alert and awake Lying in bed No apparent distress Oriented to: person, time, and place - Vital Signs Vital signs stable, afebrile - CVS RRR VITAL SIGNS Temperature: 98.3 F SBP/DBP: 141/93 Pulse: 74 Resp: 18 Vital signs stable, afebrile MEDICATIONS/TREATMENT: Other- See attached MAR (Medication Administration Record). CURRENT SPHINCTER CONTROL: # of bladder accidents in the last 7 days prior to screenin # of bowel accidents in the last 7 days prior to screenin CURRENT LOCOMOTION STATUS: distance walked 150 feet DETAILED CURRENT FUNCTIONAL STATUS: - Walking score based on distance walked: 3(>=150ft) QI SCORES: - Self-Care A. Eating 04-Supervision or touching assistance B. Oral hygiene 04-Supervision or touching assistance C. Toileting hygiene 03-Partial/moderate assistance E. Shower/bathe self 10-Not attempted due to environmental limitations F. Upper body dressing 03-Partial/moderate assistance G. Lower body dressing 02-Substantial/maximal assistance H. Putting on/taking off footwear 02-Substantial/maximal assistance - Mobility A. Roll left and right 04-Supervision or touching assistance B. Sit to lying 04-Supervision or touching assistance C. Lying to sitting on side of bed 04-Supervision or touching assistance D. Sit to stand 04-Supervision or touching assistance E. Chair/wyx-zj-[id number] transfer 04-Supervision or touching assistance F. Toilet transfer 04-Supervision or touching assistance G. Car transfer 10-Not attempted due to environmental limitations I. Walk 10 feet 04-Supervision or touching assistance J. Walk 50 feet with two turns 04-Supervision or touching assistance K. Walk 150 feet 88-Not attempted due to medical condition or safety concerns L. Walking 10 feet on uneven surfaces 88-Not attempted due to medical condition or safety concerns M. 1 step (curb) 88-Not attempted due to medical condition or safety concerns N. 4 steps 88-Not attempted due to medical condition or safety concerns O. 12 steps 88-Not attempted due to medical condition or safety concerns P. Picking up object 88-Not attempted due to medical condition or safety concerns - Bladder and Bowel Bladder continence 0-Always continent Bowel continence 0-Always continent - Endurance Poor - Balance Poor - Safety Awareness Poor CURRENT FUNC. DEFICITS: Self-Care, Mobility, Endurance, Balance, and Safety Awareness HISTORY OF FALLS. HAS THE PATIENT HAD TWO OR MORE FALLS IN THE PAST YEAR OR ANY FALL WITH INJURY IN T HE PAST YEAR?: No PRIOR SURGERY. DID THE PATIENT HAVE MAJOR SURGERY DURING THE 100 DAYS PRIOR TO ADMISSION?: No THERAPY NOTES FROM ACUTE CARE: Attached. SPECIAL NEEDS: - Safety Concerns Skin breakdown precautions needed due to skin breakdown risk PATIENT NEEDS ACTIVE AND ONGOING THERAPEUTIC INTERVENTION OF MULTIPLE THERAPY DISCIPLINES, INCLUDING: - Occupational Therapy Cognitive Retraining. Visual Perceptual Training. - Dietary and Nutrition Adequate Nutrition. Nutritional Education. Nutritional Supplements. - Speech Therapy Cognitive Training. Expressive Language Skills. Memory Strategies. Receptive Language Skills. Speech Intelligibility Training. PATIENT NEEDS CLOSE MEDICAL SUPERVISION BY A REHABILITATION PHYSICIAN FOR: Coordination of Treatment Team PATIENT REQUIRES 24X7 REHAB NURSING FOR MEDICAL AND FUNCTIONAL MGT. OF THE FOLLOWING DEFICITS: Disease Management Medication Management Patient/Family Education Providing Safe Environment PATIENT REQUIRES INTENSIVE, COORDINATED INTERDISCIPLINARY APPROACH TO REHAB: Arranging Home Equipment/Services Discharge Planning Family Intervention/Training Corporate Sales Manager/Case Management PATIENT REHAB POTENTIAL: Elvi CUBA is able and expected to receive 3 hours of individualized therapy daily on at least 5 of every 7 days Elvi CUBA's prognosis for significant practical improvement within a reasonable period of time appe ars Good Expected level of measurable improvement will be of a practical value to Elvi CUBA's functional cap acity or adaptations to impairments Has a viable Discharge Plan Medically appropriate; condition is sufficiently stable to participate in intensive rehab program DISCHARGE PLAN: - Estimated Length of Stay (days) 17. - Consensus on plan Discharge plan has been discussed with primary caregiver. Patient/Family is in agreement with the dawn n. Primary caregiver is in agreement with the plan. - Patient/Family Goals Return home independently. - Planned Living Setting Upon Discharge Home, to live with Family/Relatives. RECOMMENDED CARE LEVEL: IRF RECOMMENDATION DETAILS: Recommended Admission to Comprehensive Rehabilitation Program to Increase Functional Frederick SCREENER'S COMPLETENESS CONFIRMATION: - Screening Confirmation The patient data collection on this preadmission screening form is finished PHYSICIANS REVIEW AND ADMISSION DETERMINATION Admit - Based on my review of the Pre-Admission Screening results, in my medical judgment and experie nce, I concur with the findings and recommend admission to [facility], as this patient requires an IRF level of care. SIGNATURE PANEL: Clinical Liaison - [electronically] signed by Preeti Ellis Head Of Stock on 07/30/2019 at 16:32 (C DT) Clinical Liaison - [electronically] signed by Yohana Mccain RN on 07/30/2019 at 16:48 (CDT) Physician Reviewer - [electronically] signed by Dr. Kodak Mcelroy M.D. on 07/31/2019 at 12:02 (CDT )
--- OUTSIDE RECORDS SUMMARY | 2019-07-31 13:14 | XMS REPORT ---
:1960 Author Organization [employer]Works Care Team Providers Name Role Phone Arash Shelly Provider Role Unavailable Allergies No Known Allergies Problems Problem Type Condition Code Onset Dates Condition Statu s Problem Neurological complaint R29.90 Activ e Problem Hyperglycemia R73.9 Active Problem Obesity (BMI 30-39.9) E66.9 Active Problem Essential hypertension I10 Activ e Problem Pain in left finger(s) M79.645 Activ e Problem Nodule of finger of both hands R22.33 Active Problem Breast pain, left N64.4 Active Problem Pain in right finger(s) M79.644 Acti ve Medications No Known Medications Results No Known Results Summary Purpose eClinicalWorks Submission
--- OUTSIDE RECORDS SUMMARY | 2019-07-31 13:14 | XMS REPORT ---
:1960 Author Organization [employer] Care Team Providers Name Role Phone Shelly Antoine Provider Role Unavailable Allergies, Adverse Reactions, Alerts Substance Reaction Event Type N.K.D.A. Info Not Available Non Drug Allergy Problems Problem Type Condition Code Onset Dates Condition Statu s Assessment Essential hypertension I10 Activ e Problem Neurological complaint R29.90 Activ e Problem Hyperglycemia R73.9 Active Problem Obesity (BMI 30-39.9) E66.9 Active Problem Essential hypertension I10 Activ e Problem Pain in left finger(s) M79.645 Activ e Problem Nodule of finger of both hands R22.33 Active Problem Breast pain, left N64.4 Active Problem Pain in right finger(s) M79.644 Acti ve Assessment Neurological complaint R29.90 Activ e Assessment Pain in right finger(s) M79.644 Acti ve Assessment Obesity (BMI 30-39.9) E66.9 Active Assessment Hyperglycemia R73.9 Active Assessment Pain in left finger(s) M79.645 Activ e Assessment Screening mammogram, encounter for Z12.31 Active Assessment Nodule of finger of both hands R22.33 Active Assessment Breast pain, left N64.4 Active Medications Medication Code Code Instructions Start End Status Dosage System Date Date Combigan [facility] 55258623729 0.2-0.5 % Active 1 drop in to Ophthalmic once affected a day eye Enalapril ND 00089437000 10 MG Orally May 13, Active 1 tab let Maleate Once a day for 2019 high blood pressure Symbicort [facility] 32005290415 160-4.5 MCG/ACT Active 1 puffs Inhalation Once a day Lumigan [facility] 57360932835 0.01 % Active 1 drop into Ophthalmic Once affected a day eye in the evening Amlodipine ND 26542332713 10 MG Orally Active 1 ta blet Besylate Once a day Results No Known Results Summary Purpose eClinicalWorks Submission
--- OUTSIDE RECORDS SUMMARY | 2019-07-31 13:15 | XMS REPORT ---
:1960 Author Organization [employer] Care Team Providers Name Role Phone Shelly Antoine Provider Role Unavailable Allergies No Known Allergies Problems Problem Type Condition Code Onset Dates Condition Statu s Problem Pain in left finger(s) M79.645 Activ e Problem Breast pain, left N64.4 Active Problem Pain in right finger(s) M79.644 Acti ve Problem Left breast mass N63.20 Active Problem Nodule of finger of both hands R22.33 Active Problem Abnormal mammogram R92.8 Active Problem Hyperglycemia R73.9 Active Problem Obesity (BMI 30-39.9) E66.9 Active Problem Neurological complaint R29.90 Activ e Problem Essential hypertension I10 Activ e Medications No Known Medications Results No Known Results Summary Purpose eClinicalWorks Submission
--- OUTSIDE RECORDS SUMMARY | 2019-07-31 13:15 | XMS REPORT ---
[...] in right finger(s) M79.644 Acti ve Assessment Essential hypertension I10 Activ e Assessment Abnormal mammogram R92.8 Active Assessment Left breast mass N63.20 Active Problem Left breast mass N63.20 Active Problem Nodule of finger of both hands R22.33 Active Problem Abnormal mammogram R92.8 Active Problem Hyperglycemia R73.9 Active Problem Obesity (BMI 30-39.9) E66.9 Active Problem Neurological complaint R29.90 Activ e Problem Essential hypertension I10 Activ e Medications Medication Code Code Instructions Start End Status Dosage System Date Date Amlodipine ND 64870251581 10 MG Orally Active 1 ta blet Besylate Once a day Enalapril ND 91608982355 10 MG Orally May 13, Inactive 1 ta blet Maleate Once a day for 2019 high blood pressure Lumigan [facility] 69204402797 0.01 % Active 1 drop into Ophthalmic Once affected a day eye in the evening Symbicort ND 05639612639 160-4.5 MCG/ACT Active 1 puffs Inhalation Once a day Combigan [facility] 30146916685 0.2-0.5 % Active 1 drop in to Ophthalmic once affected a day eye Losartan ND 44519504448 25 MG Orally May 22, Active 1 tabl et Potassium Once a day 2019 Results No Known Results Summary Purpose eClinicalWorks Submission
--- OUTSIDE RECORDS SUMMARY | 2019-07-31 13:15 | XMS REPORT ---
:1960 Author Organization [facility] t Address [address] [place] [address] Dr. Vernon [address] [place] [id number] Care Team Providers Name Role Phone Unavailable [...]
--- OUTSIDE RECORDS SUMMARY | 2019-07-31 13:16 | XMS REPORT ---
:1960 Author Organization eClinicalWorks Care Team Providers Name Role Phone Shelly Antoine Provider Role Unavailable Allergies No Known Allergies Problems Problem Type Condition Code Onset Dates Condition Statu s Problem Neurological complaint R29.90 Activ e Problem Pain in right finger(s) M79.644 Acti ve Problem Pain in left finger(s) M79.645 Activ e Assessment Uncontrolled type 2 diabetes E11.65 Active mellitus with hyperglycemia Problem Uncontrolled type 2 diabetes E11.65 Active mellitus with hyperglycemia Problem Left breast mass N63.20 Active Problem Nodule of finger of both hands R22.33 Active Problem Abnormal mammogram R92.8 Active Problem Obesity (BMI 30-39.9) E66.9 Active Problem Breast pain, left N64.4 Active Problem Essential hypertension I10 Activ e Problem Hyperglycemia R73.9 Active Medications Medication Code Code Instructions Start End Status Dosage System Date Date Blood Glucose ND 0 as directed June Active as di rected Monitor Test BS once 2019 (DISPENSE daily BLOOD GLUCOSE MONITOR FORMULARY TO INSURANCE) Combigan [facility] 00130075758 0.2-0.5 % Active 1 drop in to Ophthalmic once affected eye a day Losartan ND 98504507400 25 MG Orally May 22, Active 1 tabl et Potassium Once a day 2019 Lancets [facility] 45032928216 - as directed June Active as dir ected Test BS once 2019 (dispense daily lancets formulary to insurance) Glucose [facility] [id number] n/s June Active as directed testing strips subcutaneous 2019 (di spense Test BS once testing daily strips formulary to insurance) Lumigan [facility] 47249602629 0.01 % Active 1 drop into Ophthalmic Once affected eye a day in the evening Symbicort ND 69293426249 160-4.5 MCG/ACT Active 1 puffs Inhalation Once a day Amlodipine ND 02612745155 10 MG Orally Active 1 ta blet Besylate Once a day Metformin HCl ND 56227782649 500 MG Orally June Active 1 tablet Twice a day for 2019 with a meal diabetes Results No Known Results Summary Purpose eClinicalWorks Submission
[2019-07-31] MEDS ORDERED: FORMOTEROL IH PRN (14:40)
[2019-07-31] MEDS ORDERED: BUDESONIDE IH PRN (14:40)
[2019-07-31] MEDS ORDERED: CODEINE 30MG/APAP 300MG TAB PO PRN (14:44)
[2019-07-31] MEDS ORDERED: GLUCAGON 1 MG/VIAL IM PRN (15:42)
[2019-07-31] MEDS ORDERED: D50W 25 GM/50 ML SYRINGE/VIAL IV PRN (15:42)
[2019-07-31 16:01] LABS: Urine Appearance CLOUDY; Urine Bilirubin NEGATIVE (NEG); Urine Blood NEGATIVE (NEG); Urine Color YELLOW; Urine Glucose 2+ (NEG); Urine Protein NEGATIVE (NEG); Urine pH 6.5 (5.0-7.0)
[2019-07-31 16:27] LABS: Urine Bacteria 20-50 /HPF (<20); Urine Culture Reflex Order NOT NEEDED; Urine Mucus 1+ /HPF (NONE SEEN); Urine RBC <5 /HPF (NONE SEEN)
[2019-07-31] MEDS: INSULIN -REGULAR HUMAN 50 UNIT/0.5 ML ML SQ SCH ×2 (16:30→19:32)
--- NOTE | 2019-07-31 16:39 | R.HP ---
FACILITY: [facility] ENCOUNTER DATE AND TIME: 07/31/2019 16:27 (CDT) MR#: [id number] NAME ANGE CUBA ADDRESS: [address] [place] [address] CITY: [place] [address]IP [id number] PHONE: DATE OF : 1960 AGE: 59 SSN# [id number] GENDER: Female DEXTERITY Right-handed MARITAL STATUS RACE White PRE-HOSPITAL LIVING SETTING 01 - Home (private home/apt. board/care, assisted living, shelter, transitional living) PRE-HOSPITAL LIVING WITH Family/Relatives ENCOUNTER PHYSICIAN: Dr. Kodak Mcelroy M.D. REFERRING DOCTOR: Dr. Palacios DATE OF ADMISSION: 07/31/2019 16:29 (Central Daylight Time) REFERRING FACILITY [facility] HOME TYPE AND DETAILS: Type of home: single family house # of steps to enter the residence: 0 # of levels in the residence: 1 # of steps within the residence: 3 Prior to recent hospitalization, pt was living in a single story home with her . pt's home co nsists of 3 small buildings connected with [employer]. pt has up to 3 stairs to negotiate between buildin gs with bilateral HRs at times as well as unilateral HRs. pt reports being Independent with ADLs and self cares without the use of an AD. pt states she does have a SC. pt has a whirlpool style tub. ONSET DATE: 07/29/2019 PRIMARY DIAGNOSIS-RELATED SURGERIES: No surgeries related to the primary diagnosis were performed. HISTORY OF PRESENT ILLNESS (HPI): Pt. is a 59 yo Right-handed white female. On 07/29/2019 Pt. presented to [facility] with sudden onset of right-side weakness. 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 . Her impairment category is Stroke 01 - Right Body (Left Brain) (01.2). Pre-morbidly, Pt. was independent/mod-I in Transfers Control, Locomotion, and Self-Care; and she had good Balance, Safety Awareness, Social Cognition, and Communication. Currently, she has deficits of Transfers Control, Locomotion, Safety Awareness, Balance, Self-Care, S ocial Cognition, and Communication. Pt. is now referred to [facility] for acute in-patient rehabilitation in order to maximize patient's functional independence in activities of daily living, strength, ROM, and mobi lity. Patient has realistic goal of being discharged at assistance level 6-Soledad to reside at Home with Fam belkis/Relatives. 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 SOCIAL HISTORY: - Home Living Family/Relatives REVIEW OF SYSTEMS: - Gen No Chills No Fatigue No Fever - Eyes No Double Vision No itchiness - ENMT No Difficulty Swallowing - CVS No Chest Discomfort No Chest Pain Fatigue No Weight Gain - Resp No Cough No Shortness of Breath - GI Continent No Abdominal Pain No Constipation No Diarrhea - Continent No Kidney Pain No Painful Urination No Urinary Urgency - MSK No Joint Pain No Muscle Cramps No Stiffness - Skin No Itching No Rash No Suspicious Lesions - Neuro Coordination Difficulty Difficulty with Concentration Memory Loss No Seizures Weakness - Psych Anxiety No Depression No HIV Exposure No Persistent Infections No Seasonal Allergies - Endo No Cold/Heat Intolerance No Excessive Hunger No Excessive Thirst No Excessive Urination PHYSICAL EXAM - Gen Alert and awake Lying in bed No apparent distress Oriented to: person, time, and place - Skin No skin breakdown. - Eyes Left eye blindness. - ENMT No abnormalities - Neck No abnormalities - CVS RRR - Chest No abnormalities - Abd Soft - GI Non distended Deferred - No abnormalities - Ext No significant edema - MSK 4+/5 weakness in right upper and lower extremity - Neuro Right face, arm and leg numbness and mild weakness. - Psych Mild anxiety. VITAL SIGNS Temperature: 97 F SBP/DBP: 156/71 Pulse: 66 Resp: 16 NURSING: - Shower allowing shower - Bladder care per protocol - Skin care per protocol PRECAUTIONS: - Weight Bearing Precaution WBAT right LE and UE ACTIVITIES OOB only with supervision QI SCORES: - Self-Care A. Eating 04-Supervision or touching assistance B. Oral hygiene 04-Supervision or touching assistance C. Toileting hygiene 03-Partial/moderate assistance E. Shower/bathe self 10-Not attempted due to environmental limitations F. Upper body dressing 03-Partial/moderate assistance G. Lower body dressing 02-Substantial/maximal assistance H. Putting on/taking off footwear 02-Substantial/maximal assistance - Mobility A. Roll left and right 04-Supervision or touching assistance B. Sit to lying 04-Supervision or touching assistance C. Lying to sitting on side of bed 04-Supervision or touching assistance D. Sit to stand 04-Supervision or touching assistance E. Chair/[id number] transfer 04-Supervision or touching assistance F. Toilet transfer 04-Supervision or touching assistance G. Car transfer 10-Not attempted due to environmental limitations I. Walk 10 feet 04-Supervision or touching assistance J. Walk 50 feet with two turns 04-Supervision or touching assistance K. Walk 150 feet 88-Not attempted due to medical condition or safety concerns L. Walking 10 feet on uneven surfaces 88-Not attempted due to medical condition or safety concerns M. 1 step (curb) 88-Not attempted due to medical condition or safety concerns N. 4 steps 88-Not attempted due to medical condition or safety concerns O. 12 steps 88-Not attempted due to medical condition or safety concerns P. Picking up object 88-Not attempted due to medical condition or safety concerns - Bladder and Bowel Bladder continence 0-Always continent Bowel continence 0-Always continent - Endurance Poor - Balance Poor - Safety Awareness Poor CURRENT FUNC. DEFICITS: Self-Care, Mobility, Endurance, Balance, and Safety Awareness MEDICATIONS: - Other See attached MAR (Medication Administration Record) ASSESSMENT: Pt. is a 59 yo Right-handed white female.On 07/29/2019 Pt. 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 .Her impairment category is Stroke 01 - Right Body (Left Brain) (01.2).Pre-morbidly, Pt. was independent/mod-I in Transfers Control, L ocomotion, and Self-Care; and she had good Balance, Safety Awareness, Social Cognition, and Communica tion.Currently, she has deficits of Transfers Control, Locomotion, Safety Awareness, Balance, Self-Ca re, Social Cognition, and Communication.Pt. is now referred to [facility] for acute in-patient rehabilitation in order to maximize patient's functional independence in activities of daily living, strength, ROM, and mobility.- Rehab Goal Patient has realistic goal of being discharged at assistance level 6-Soledad to reside at Home with Fam belkis/Relatives. REHAB PLAN: for Dementia, TBI, Stroke, or others - Physical Therapy Gait dysfunction - to improve, our physical therapists will perform initial evaluation of pt's status upon admission and devise an individualized program for Gait Training, and Wheel Chair mobility Inability to transfer - to improve, our physical therapists will perform initial evaluation of pt's s tatus upon admission and devise an individualized program for Bed mobility Need for home safety evaluation - to improve, our physical therapists will perform initial evaluation of pt's status upon admission and devise an individualized program for Home Evaluation Need in caregiver upon discharge - to improve, our physical therapists will perform initial evaluatio n of pt's status upon admission and devise an individualized program for Caregiver Training Edema - to improve, our physical therapists will perform initial evaluation of pt's status upon admi ssion and devise an individualized program for Elevation Training, and Lymphedema Therapy New precaution - to improve, our physical therapists will perform initial evaluation of pt's status u angella admission and devise an individualized program for Patient precaution education Poor balance - to improve, our physical therapists will perform initial evaluation of pt's status upo n admission and devise an individualized program for Balance Training Weakness - to improve, our physical therapists will perform initial evaluation of pt's status upon ad mission and devise an individualized program for Aquatic Therapy, Neuromuscular Reeducation, and Stre ngthening Achieving independence - to improve, our physical therapists will perform initial evaluation of pt's status upon admission and devise an individualized program for Community Reintegration Activities - Occupational Therapy ADL deficits - to improve, our occupation therapists will perform initial evaluation of pt's status u angella admission and devise an individualized program for Bathing, Bed mobility, Community Reintegration , Cooking, Dressing, Eating, Fine Motor Skills, Grooming, Homemaking, Kitchen Mobility, Laundry, Delia ent Education, Safety Awareness, Splinting - Positioning, Transfers(Toilet, Tub, Shower), and Wheel C hair Management Cognitive deficits - to improve, our occupation therapists will perform initial evaluation of pt's st atus upon admission and devise an individualized program for Cognition - orientation Need for palliative care physician - to improve, our occupation therapists will perform initial evaluation of pt's s tatus upon admission and devise an individualized program for Caregiver Training Weakness - to improve, our occupation therapists will perform initial evaluation of pt's status upon admission and devise an individualized program for Aquatic Therapy, Balance, Endurance, UE ROM, and U E strengthening MEDICAL PLAN: - Diet Type Regular - Diet - Liquid Texture Regular - Tube Feed N/A - Bladder care per protocol - Weight Bearing Precaution WBAT right LE and UE - Skin care per protocol - Other See attached MAR (Medication Administration Record) - Diet - Solid Texture Regular - Shower shower DISCHARGE PLAN: - Estimated Length of Stay (days) 17. - Consensus on plan Discharge plan has been discussed with primary caregiver. Patient/Family is in agreement with the dawn n. Primary caregiver is in agreement with the plan. - Patient/Family Goals Return home independently. - Planned Living Setting Upon Discharge Home, to live with Family/Relatives. SIGNATURE PANEL: (CDT)
--- NOTE | 2019-07-31 16:40 | PAPE ---
PATIENT: [facility] MR# [id number] REFERRING DOCTOR Dr. Palacios EVALUATION DATE AND TIME 07/31/2019 16:39 (CDT) NAME ANGE CUBA SEPTEMBER DATE OF 1960 AGE 59 PHONE SSN# [id number] GENDER female EVALUATING PHYSICIAN Dr. Kodak Mcelroy M.D. 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 ONSET DATE 07/29/2019 POST-ADMISSION FUNCTIONAL/MEDICAL STATUS: - Walking Same score based on distance walked: 3(>=150ft) STATUS CHANGE EVALUATION: No change in Functional or Medical Status is identified compared with Pre-Admission screening. PATIENT NEEDS CLOSE MEDICAL SUPERVISION BY A REHABILITATION PHYSICIAN FOR: Coordination of Treatment Team PATIENT REQUIRES 24X7 REHAB NURSING FOR MEDICAL AND FUNCTIONAL MGT. OF THE FOLLOWING DEFICITS: Disease Management Medication Management Patient/Family Education Providing Safe Environment PATIENT REQUIRES INTENSIVE, COORDINATED INTERDISCIPLINARY APPROACH TO REHAB: Arranging Home Equipment/Services Discharge Planning Family Intervention/Training Industrial Gar[employer]/Case Management LIST OF IDENTIFIED AND POTENTIAL PROBLEMS: Alteration in leisure activities Infection, Actual or Potential Mobility Impaired Pain, Alteration in Comfort Self Care Deficit Skin Integrity, Actual or Potential Urinary Tract Infection (UTI), Actual or Potential PATIENT COULD BE AT RISK FOR COMPLICATIONS FROM ADVERSE MEDICAL CONDITIONS DUE TO HIS/HER COMORBIDITI ES AND THE RIGORS OF THE INTENSIVE REHABILLITATION PROGRAM. METHODS OR INTERVENTIONS TO AVOID COMPLIC ATIONS INCLUDE: - Bleeding Stroke patients assessed for lethargy or change in status. - Infection Clinical staff to assess and manage the signs and symptoms of infection including fever, redness, war mth, etc. - Urinary Tract Infection - Aspiration Clinical staff will assess and manage coughing, drooling, congestion. - Falls Patient will be evaluated for Fall Precautions and will be placed on Fall Precautions as indicated pe r protocol. - Skin Breakdown Nursing will assess skin daily using assessment tool and will place on Skin Breakdown Precautions as indicated per protocol. - Pain Clinical staff may employ non-medication methods such as massage, distraction, decrease stimulus, etc . as needed. Clinical staff will assess patient's pain level every shift per protocol to assess and e nsure pain management effectiveness. Medications will be given and the pain level re-assessed. PRELIMINARY PLAN OF CARE: - Physical Therapy Patient needs Physical Therapy for a daily minimum of 1.5 hours at least 5 out of 7 days, to improve: Mobility, Strengthening, Transfers, Stretching, ROM, Endurance, Ability to manage stairs, Gait, and Balance. - Speech Therapy Patient needs Speech Therapy for a daily minimum of 0.5 hours at least 5 out of 7 days, to improve: S wallowing, Cognition, Language Skills, and Compensatory Strategies. - Rehabilitation Nursing Patient requires 24x7 Rehabilitation Nursing for: Pain Issues, Identifying and preventing risk factor s, Monitoring and reporting current medical conditions, Assisting with ambulation and transfer, Jet ting with all ADL-s, Teaching patients about disease process and medications, Family teaching, Provid ing safe environment, Bowel and Bladder Issues, Skin Integrity, and Medication Management. Patient needs Industrial Garage Servicer and/or Case Management for: Discharge Planning, Arranging Home Equipmen t or Services, and Family Interventions. - Dietary and Nutrition Services Patient needs Dietary and Nutrition Services for: Adequate Nutrition, Nutritional Supplements, and Nu tritional Education. - Occupational Therapy Patient needs Occupational Therapy for a daily minimum of 1.5 hours at least 5 out of 7 days, to impr ove Activities of Daily Living, including: Eating, Grooming, Bathing, Dressing, Toileting, Toilet Tra nsfers, Community Reintegration, Higher functional activities, Adaptive Equipment, Splinting, Househo ld Tasks, and Other activities as determined. QI SCORES: - Self-Care A. Eating 04-Supervision or touching assistance B. Oral hygiene 04-Supervision or touching assistance C. Toileting hygiene 03-Partial/moderate assistance E. Shower/bathe self 10-Not attempted due to environmental limitations F. Upper body dressing 03-Partial/moderate assistance G. Lower body dressing 02-Substantial/maximal assistance H. Putting on/taking off footwear 02-Substantial/maximal assistance - Mobility A. Roll left and right 04-Supervision or touching assistance B. Sit to lying 04-Supervision or touching assistance C. Lying to sitting on side of bed 04-Supervision or touching assistance D. Sit to stand 04-Supervision or touching assistance E. Chair/[id number] transfer 04-Supervision or touching assistance F. Toilet transfer 04-Supervision or touching assistance G. Car transfer 10-Not attempted due to environmental limitations I. Walk 10 feet 04-Supervision or touching assistance J. Walk 50 feet with two turns 04-Supervision or touching assistance K. Walk 150 feet 88-Not attempted due to medical condition or safety concerns L. Walking 10 feet on uneven surfaces 88-Not attempted due to medical condition or safety concerns M. 1 step (curb) 88-Not attempted due to medical condition or safety concerns N. 4 steps 88-Not attempted due to medical condition or safety concerns O. 12 steps 88-Not attempted due to medical condition or safety concerns P. Picking up object 88-Not attempted due to medical condition or safety concerns - Bladder and Bowel Bladder continence 0-Always continent Bowel continence 0-Always continent - Endurance Poor - Balance Poor - Safety Awareness Poor POTENTIAL FUNCTIONAL GOALS FOR PATIENT TO ACHIEVE BY DISCHARGE: - Safety Precaution Patient will remain free from falls or injury at time of discharge. - Bed Mobility Patient will perform bed mobility at 4-Jaylene level of assistance. - Transfers Patient will complete transfers from bed to chair at 4-Jaylene level of assistance. - Mobility Patient will ambulate 150 ft with 4-Jaylene level of assistance with RW. PATIENT REHAB POTENTIAL Elvi CUBA is able and expected to receive 3 hours of individualized therapy daily on at least 5 of every 7 days Elvi CUBA's prognosis for significant practical improvement within a reasonable period of time appe ars Good Expected level of measurable improvement will be of a practical value to Elvi CUBA's functional cap acity or adaptations to impairments Has a viable Discharge Plan Medically appropriate; condition is sufficiently stable to participate in intensive rehab program DISCHARGE PLAN: - Estimated Length of Stay (days) 17. - Consensus on plan Discharge plan has been discussed with primary caregiver. Patient/Family is in agreement with the dawn n. Primary caregiver is in agreement with the plan. - Patient/Family Goals Return home independently. - Planned Living Setting Upon Discharge Home, to live with Family/Relatives. CONCLUSION ON REHABILITATION NECESSITY: I have evaluated patient's pre-admission functional status and, comparing it to the patient's post-ad mission functional status now, I conclude that the pre-admission assessment was accurate. Patient's c ondition on admission supports the medical necessity of admission to [facility]. It is safe to proceed with patient's therapy program. SIGNATURE PANEL: (CDT)
[2019-07-31] MEDS: METFORMIN HCL 500 MG TAB PO SCH (17:31)
[2019-07-31] MEDS: DOCUSATE NA/SENNA CONC 1 TAB PO PRN (19:32)
[2019-07-31] MEDS: LOSARTAN POTASSIUM 50 MG TABLET PO SCH (19:32)
[2019-07-31] MEDS: ATORVASTATIN 40 MG TAB PO SCH (19:32)
[2019-07-31] MEDS: APIXABAN 2.5 MG TABLET PO SCH (19:32)
[2019-07-31] MEDS: ACETAMINOPHEN 500 MG TAB PO PRN (21:43)
[2019-08-01 05:57] LABS: Absolute Lymphocytes (CBC) 1.7 K/uL (0.7-4.9); Basophils % 0.1 % (0-1.3); Hematocrit 35.3 % (36.0-45.0); Lymphocytes % 30.1 % (15.3-44.8); MPV 8.8 fL (7.6-11.3)
[2019-08-01 06:04] LABS: Albumin 3.1 g/dL (3.4-5.0); BUN Blood Urea Nitrogen 9 mg/dL (7-18); Bicarbonate 28 mmol/L (21-32); Glucose Level 149 mg/dL (74-106); Magnesium 2.2 mg/dL (1.8-2.4); Potassium 3.8 mmol/L (3.5-5.1); Prealbumin 21.4 mg/dL (20-40); Sodium Level 143 mmol/L (136-145)
[2019-08-01] MEDS: INSULIN -REGULAR HUMAN 50 UNIT/0.5 ML ML SQ SCH ×4 (07:30→19:54)
[2019-08-01] MEDS ORDERED: ASPIRIN EC 81 MG TAB PO SCH (08:00)
[2019-08-01] MEDS ORDERED: HOME MED [BRIMONIDINE TARTRATE 0.15% 5 ML] OPTH SCH (08:00)
[2019-08-01] MEDS ORDERED: HOME MED [BIMATOPROST OPHTH DROPS/2.5 ML BTL] OPTH SCH (08:00)
[2019-08-01] MEDS: AMLODIPINE 10 MG TAB PO SCH ×2 (09:29→14:26)
[2019-08-01] MEDS: LOSARTAN POTASSIUM 50 MG TABLET PO SCH ×2 (09:29→19:54)
[2019-08-01] MEDS: APIXABAN 2.5 MG TABLET PO SCH ×2 (09:29→19:53)
[2019-08-01] MEDS: METFORMIN HCL 500 MG TAB PO SCH ×2 (09:30→17:10)
--- NOTE | 2019-08-01 12:54 | FAST ---
ENCOUNTER DATE AND TIME: 08/01/2019 08:00 (CDT) NAME ANEG CUBA DATE OF : 1960 DATE OF ADMISSION: 07/31/2019 16:29 (CDT) PHONE: AGE: 59 N# [id number] GENDER: Female ENCOUNTER PHYSICIAN: Dr. Kodak Mcelroy M.D. 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 . ROLL LEFT AND RIGHT: ROLL LEFT AND RIGHT - STEP 1: Does the patient complete the activity by him/herself with no assistance (physical, verbal/nonverbal cueing, setup/clean-up)? Yes. 1. [id number] ADMISSION PERFORMANCE: Independent CODE: 06 SIT TO LYING: SIT TO LYING - STEP 1: Does the patient complete the activity by him/herself with no assistance (physical, verbal/nonverbal cueing, setup/clean-up)? Yes. 1. [id number] ADMISSION PERFORMANCE: Independent CODE: 06 LYING TO SITTING: LYING TO SITTING ON SIDE OF BED - STEP 1: Does the patient complete the activity by him/herself with no assistance (physical, verbal/nonverbal cueing, setup/clean-up)? Yes. 1. [id number] ADMISSION PERFORMANCE: Independent CODE: 06 SIT TO STAND: SIT TO STAND - STEP 1: Does the patient complete the activity by him/herself with no assistance (physical, verbal/nonverbal cueing, setup/clean-up)? No. SIT TO STAND - STEP 2: Does the patient need only setup/clean-up assistance from one helper? Yes. 1. [id number] ADMISSION PERFORMANCE: Setup or clean-up assistance CODE: 05 TRANSFERS: BED, CHAIR: CHAIR/[id number] TRANSFER - STEP 1: Does the patient complete the activity by him/herself with no assistance (physical, verbal/nonverbal cueing, setup/clean-up)? No. CHAIR/[id number] TRANSFER - STEP 2: Does the patient need only setup/clean-up assistance from one helper? Yes. 1. [id number] ADMISSION PERFORMANCE: Setup or clean-up assistance CODE: 05 TRANSFER TOILET: TOILET TRANSFER - STEP 1: Does the patient complete the activity by him/herself with no assistance (physical, verbal/nonverbal cueing, setup/clean-up)? Yes. 1. [id number] ADMISSION PERFORMANCE: Independent CODE: 06 TRANSFERS: CAR: Not attempted due to medical condition or safety concerns CODE: 88 WALK 10 FEET: WALK 10 FEET - STEP 1: Does the patient complete the activity by him/herself with no assistance (physical, verbal/nonverbal cueing, setup/clean-up)? No. WALK 10 FEET - STEP 2: Does the patient need only setup/clean-up assistance from one helper? No. WALK 10 FEET - STEP 3: Does the patient need only verbal/nonverbal cueing or touching/steadying/contact guard assistance fro m one helper? Yes. 1. [id number] ADMISSION PERFORMANCE: Supervision or touching assistance CODE: WALK 50 FEET: WALK 50 FEET - STEP 1: Does the patient complete the activity by him/herself with no assistance (physical, verbal/nonverbal cueing, setup/clean-up)? No. WALK 50 FEET - STEP 2: Does the patient need only setup/clean-up assistance from one helper? No. WALK 50 FEET - STEP 3: Does the patient need only verbal/nonverbal cueing or touching/steadying/contact guard assistance fro m one helper? Yes. 1. [id number] ADMISSION PERFORMANCE: Supervision or touching assistance CODE: WALK 150 FEET: WALK 150 FEET - STEP 1: Does the patient complete the activity by him/herself with no assistance (physical, verbal/nonverbal cueing, setup/clean-up)? No. WALK 150 FEET - STEP 2: Does the patient need only setup/clean-up assistance from one helper? No. WALK 150 FEET - STEP 3: Does the patient need only verbal/nonverbal cueing or touching/steadying/contact guard assistance fro m one helper? Yes. 1. [id number] ADMISSION PERFORMANCE: Supervision or touching assistance CODE: WALK 10 FEET UNEVEN: Not attempted due to medical condition or safety concerns CODE: 88 1 STEP (CURB): 1 STEP CURB - STEP 1: Does the patient complete the activity by him/herself with no assistance (physical, verbal/nonverbal cueing, setup/clean-up)? No. 1 STEP CURB - STEP 2: Does the patient need only setup/clean-up assistance from one helper? No. 1 STEP CURB - STEP 3: Does the patient need only verbal/nonverbal cueing or touching/steadying/contact guard assistance fro m one helper? Yes. 1. [id number] ADMISSION PERFORMANCE: Supervision or touching assistance CODE: 04 4 STEPS: 4 STEPS - STEP 1: Does the patient complete the activity by him/herself with no assistance (physical, verbal/nonverbal cueing, setup/clean-up)? No. 4 STEPS - STEP 2: Does the patient need only setup/clean-up assistance from one helper? No. 4 STEPS - STEP 3: Does the patient need only verbal/nonverbal cueing or touching/steadying/contact guard assistance fro m one helper? Yes. 1. [id number] ADMISSION PERFORMANCE: Supervision or touching assistance CODE: 04 12 STEPS: 12 STEPS - STEP 1: Does the patient complete the activity by him/herself with no assistance (physical, verbal/nonverbal cueing, setup/clean-up)? No. 12 STEPS - STEP 2: Does the patient need only setup/clean-up assistance from one helper? No. 12 STEPS - STEP 3: Does the patient need only verbal/nonverbal cueing or touching/steadying/contact guard assistance fro m one helper? Yes. 1. [id number] ADMISSION PERFORMANCE: Supervision or touching assistance CODE: 04 PICKING UP OBJECT: Not attempted due to medical condition or safety concerns CODE: 88 DOES THE PATIENT USE A WHEELCHAIR/SCOOTER? Q1. DOES THE PATIENT USE A WHEELCHAIR/SCOOTER?: Yes CODE: 1 WHEEL 50 FEET WITH TWO TURNS: WHEEL 50 FEET WITH TWO TURNS - STEP 1: Does the patient complete the activity by him/herself with no assistance (physical, verbal/nonverbal cueing, setup/clean-up)? Yes. 1. [id number] ADMISSION PERFORMANCE: Independent CODE: 06 INDICATE THE TYPE OF WHEELCHAIR/SCOOTER USED: RR1. INDICATE THE TYPE OF WHEELCHAIR/SCOOTER USED.: Manual CODE: 1 WHEEL 150 FEET: WHEEL 150 FEET - STEP 1: Does the patient complete the activity by him/herself with no assistance (physical, verbal/nonverbal cueing, setup/clean-up)? Yes. 1. [id number] ADMISSION PERFORMANCE: Independent CODE: 06 INDICATE THE TYPE OF WHEELCHAIR/SCOOTER USED: SS1. INDICATE THE TYPE OF WHEELCHAIR/SCOOTER USED.: Manual CODE: 1 BLADDER AND BOWEL: CODE: EXPR CODE: EXPR SIGNATURE PANEL: The following modified sections: 1. [id number] Admission Performance, 1. [id number] Admission Performance, 1. [id number] Admission Performance, 1. [id number] Admission Performance, 1. HL4275M Admission Performance, 1. [id number] Admission Performance, 1. [id number] Admission Performance, 1. [id number] Admission Performance , 1. [id number] Admission Performance, 1. NC3169S Admission Performance, 1. [id number] Admission Performanc e, 1. DV1966V Admission Performance, 1. [id number] Admission Performance, Q1. Does the patient use a whe elchair/scooter?, 1. PR4414O Admission Performance, RR1. Indicate the type of wheelchair/scooter used ., 1. [id number] Admission Performance, Code, SS1. Indicate the type of wheelchair/scooter used. were [e lectronically] signed by Sherlyn Magana PTA on MonAug 01 2019 12:52:56 T-0500 ([facility] Time)
--- NOTE | 2019-08-01 13:12 | FAST ---
SHIFT START DATE/TIME: 08/01/2019 07:00 (CDT) SHIFT END DATE/TIME: 08/01/2019 19:00 (CDT) NAME ANGE CUBA DATE OF : 1960 DATE OF ADMISSION: 07/31/2019 16:29 (CDT) PHONE: AGE: 59 N# [id number] GENDER: Female ENCOUNTER PHYSICIAN: Dr. Kodak Mcelroy M.D. 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 . EATING: EATING - STEP 1: Does the patient complete the activity by him/herself with no assistance (physical, verbal/nonverbal cueing, setup/clean-up)? No. EATING - STEP 2: Does the patient need only setup/clean-up assistance from one helper? No. EATING - STEP 3: Does the patient need only verbal/nonverbal cueing or touching/steadying/contact guard assistance fro m one helper? Yes. 1. [id number] ADMISSION PERFORMANCE: Supervision or touching assistance CODE: 04 ORAL HYGIENE: ORAL HYGIENE - STEP 1: Does the patient complete the activity by him/herself with no assistance (physical, verbal/nonverbal cueing, setup/clean-up)? No. ORAL HYGIENE - STEP 2: Does the patient need only setup/clean-up assistance from one helper? No. ORAL HYGIENE - STEP 3: Does the patient need only verbal/nonverbal cueing or touching/steadying/contact guard assistance fro m one helper? Yes. 1. [id number] ADMISSION PERFORMANCE: Supervision or touching assistance CODE: 04 TOILETING HYGIENE: TOILETING HYGIENE - STEP 1: Does the patient complete the activity by him/herself with no assistance (physical, verbal/nonverbal cueing, setup/clean-up)? No. TOILETING HYGIENE - STEP 2: Does the patient need only setup/clean-up assistance from one helper? No. TOILETING HYGIENE - STEP 3: Does the patient need only verbal/nonverbal cueing or touching/steadying/contact guard assistance fro m one helper? Yes. 1. [id number] ADMISSION PERFORMANCE: Supervision or touching assistance CODE: 04 BATHING: Not assessed/no information CODE: - DRESSING - UPPER BODY: Not assessed/no information CODE: - DRESSING - LOWER BODY: Not assessed/no information CODE: - PUTTING ON/TAKING OFF FOOTWEAR: Not assessed/no information CODE: - ROLL LEFT AND RIGHT: Not assessed/no information CODE: - SIT TO LYING: Not assessed/no information CODE: - LYING TO SITTING: Not assessed/no information CODE: - SIT TO STAND: Not assessed/no information CODE: - TRANSFERS: BED, CHAIR: CHAIR/[id number] TRANSFER - STEP 1: Does the patient complete the activity by him/herself with no assistance (physical, verbal/nonverbal cueing, setup/clean-up)? No. CHAIR/[id number] TRANSFER - STEP 2: Does the patient need only setup/clean-up assistance from one helper? No. CHAIR/[id number] TRANSFER - STEP 3: Does the patient need only verbal/nonverbal cueing or touching/steadying/contact guard assistance fro m one helper? Yes. 1. [id number] ADMISSION PERFORMANCE: Supervision or touching assistance CODE: 04 TRANSFER TOILET: TOILET TRANSFER - STEP 1: Does the patient complete the activity by him/herself with no assistance (physical, verbal/nonverbal cueing, setup/clean-up)? No. TOILET TRANSFER - STEP 2: Does the patient need only setup/clean-up assistance from one helper? No. TOILET TRANSFER - STEP 3: Does the patient need only verbal/nonverbal cueing or touching/steadying/contact guard assistance fro m one helper? No. TOILET TRANSFER - STEP 4: Does the patient need physical assistance - for example lifting or trunk support from one helper - wi th the helper providing less than half of the effort? Yes. 1. [id number] ADMISSION PERFORMANCE: Partial/moderate assistance CODE: 03 TRANSFERS: CAR: Not assessed/no information CODE: - WALK 10 FEET: Not assessed/no information CODE: - 1 STEP (CURB): Not assessed/no information CODE: - PICKING UP OBJECT: Not assessed/no information CODE: - DOES THE PATIENT USE A WHEELCHAIR/SCOOTER? CODE: EXPR WHEEL 50 FEET WITH TWO TURNS: Not assessed/no information CODE: - INDICATE THE TYPE OF WHEELCHAIR/SCOOTER USED: CODE: EXPR WHEEL 150 FEET: Not assessed/no information CODE: - INDICATE THE TYPE OF WHEELCHAIR/SCOOTER USED: CODE: EXPR BLADDER AND BOWEL: H350. BLADDER CONTINENCE (3-DAY ASSESSMENT PERIOD): Always continent (no documented incontinence) CODE: 0 H400. BOWEL CONTINENCE (3-DAY ASSESSMENT PERIOD): Always continent CODE: 0 SIGNATURE PANEL: The following modified sections: 1. [id number] Admission Performance, 1. SV0983W Admission Performance, 1. FC3039N Admission Performance, 1. WH0644Q Admission Performance, 1. MQ0844D Admission Performance, Code, H350. Bladder Continence (3-day assessment period), H400. Bowel Continence (3-day assessment p eriod) were [electronically] signed by Alber Mcarthur on MonAug 01 2019 13:12:09 T-0500 ([facility] Time)
--- NOTE | 2019-08-01 15:55 | R.PN ---
ENCOUNTER DATE AND TIME: 08/01/2019 15:42 (CDT) NAME ANGE CUBA DATE OF : 1960 DATE OF ADMISSION: 07/31/2019 16:29 (CDT) 8 mm nonhemorrhagic subacute infarct suspected left basal ganglia. 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 SUBJECTIVE: Pt denied any Shortness of Breath. Pt denied any depression. Labs reviewed. WBC 5.5, Hgb 11.7, Plt 200, prealbumin 21.4, Glucose 149 to 240. UA shows bacteria 20 to 50. She did 10 stand and pivot transfers with standby assistance using a rolling walker. VITAL SIGNS Temperature: 97.6 F SBP/DBP: 141/60 Pulse: 72 Resp: 14 MEDICATION ALLERGIES: No Known Drug Allergies (NKDA) ENVIRONMENTAL ALLERGIES: None Known - Substance Allergies None Known - Other Allergies None Known NURSING: - Shower allowing shower - Bladder care per protocol - Skin care per protocol PRECAUTIONS: - Weight Bearing Precaution WBAT right LE and UE ACTIVITIES OOB only with supervision THERAPIES: - Occupational Therapy Cognitive Retraining. Visual Perceptual Training. - Dietary and Nutrition Adequate Nutrition. Nutritional Education. Nutritional Supplements. - Speech Therapy Cognitive Training. Expressive Language Skills. Memory Strategies. Receptive Language Skills. Speech Intelligibility Training. PHYSICAL EXAM - Gen Alert and awake Lying in bed No apparent distress Oriented to: person, time, and place - Skin No skin breakdown. - Eyes Left eye blindness. - ENMT No abnormalities - Neck No abnormalities - CVS RRR - Chest No abnormalities - Abd Soft - GI Non distended Deferred - No abnormalities - Ext No significant edema - MSK 4+/5 weakness in right upper and lower extremity - Neuro Right face, arm and leg numbness and mild weakness. - Psych Mild anxiety. ASSESSMENT: Pt. is a 59 yo Right-handed white female.On 07/29/[address] [facility] with sudd en onset of right-side weakness.On 07/29/2019 she was admitted to [facility] with diagnosis 8 mm nonhemorrhagic subacute infarct suspected left basal ganglia. .Her impairment category is Stroke 01 - Right Body (Left Brain) (01.2).Pre-morbidly, Pt. was independent/mod-I in Transfers Control, L ocomotion, and Self-Care; and she had good Balance, Safety Awareness, Social Cognition, and Communica tion.Currently, she has deficits of Transfers Control, Locomotion, Safety Awareness, Balance, Self-Ca re, Social Cognition, and Communication.Pt. is now referred to [facility] for acute in-patient rehabilitation in order to maximize patient's functional independence in activities of daily living, strength, ROM, and mobility.- Rehab Goal Patient has realistic goal of being discharged at assistance level 6-Soledad to reside at Home with Fam belkis/Relatives. MDM/PLAN: - Physical Therapy Gait dysfunction - to improve, our physical therapists will perform initial evaluation of pt's statu s upon admission and devise an individualized program for Gait Training, and Wheel Chair mobility Inability to transfer - to improve, our physical therapists will perform initial evaluation of pt's status upon admission and devise an individualized program for Bed mobility Need for home safety evaluation - to improve, our physical therapists will perform initial evaluatio n of pt's status upon admission and devise an individualized program for Home Evaluation Need in caregiver upon discharge - to improve, our physical therapists will perform initial evaluati on of pt's status upon admission and devise an individualized program for Caregiver Training Edema - to improve, our physical therapists will perform initial evaluation of pt's status upon admis wanda and devise an individualized program for Elevation Training, and Lymphedema Therapy New precaution - to improve, our physical therapists will perform initial evaluation of pt's status upon admission and devise an individualized program for Patient precaution education Poor balance - to improve, our physical therapists will perform initial evaluation of pt's status up on admission and devise an individualized program for Balance Training Weakness - to improve, our physical therapists will perform initial evaluation of pt's status upon a dmission and devise an individualized program for Aquatic Therapy, Neuromuscular Reeducation, and Str engthening Achieving independence - to improve, our physical therapists will perform initial evaluation of pt's status upon admission and devise an individualized program for Community Reintegration Activities - Occupational Therapy ADL deficits - to improve, our occupation therapists will perform initial evaluation of pt's status upon admission and devise an individualized program for Bathing, Bed mobility, Community Reintegratio n, Cooking, Dressing, Eating, Fine Motor Skills, Grooming, Homemaking, Kitchen Mobility, Laundry, Pat ient Education, Safety Awareness, Splinting - Positioning, Transfers(Toilet, Tub, Shower), and Wheel Chair Management Cognitive deficits - to improve, our occupation therapists will perform initial evaluation of pt's s tatus upon admission and devise an individualized program for Cognition - orientation Need for pet caretaker - to improve, our occupation therapists will perform initial evaluation of pt's status upon admission and devise an individualized program for Caregiver Training Weakness - to improve, our occupation therapists will perform initial evaluation of pt's status upon admission and devise an individualized program for Aquatic Therapy, Balance, Endurance, UE ROM, and UE strengthening - Other See attached MAR (Medication Administration Record) - Diet Type Continue Regular - Diet - Liquid Texture Continue Regular - Tube Feed Continue N/A - Bladder care per protocol - Weight Bearing Precaution WBAT right LE and UE - Skin care per protocol - Diet - Solid Texture Continue Regular - Shower allowing shower for Dementia, TBI, Stroke, or others FUNCTIONAL STATUS: UPDATED AT WEEKLY TEAM CONFERENCE - Walking Same score based on distance walked: 3(>=150ft) FUNCTIONAL STATUS: - Self-Care A. Eating Soledad B. Grooming Soledad C. Bathing Jaylene D. Dressing - Upper sup E. Dressing - Lower Jaylene F. Toileting sup - Sphincter Control G. Bladder control sup H. Bowel control sup - Transfers Control I. Bed/Chair/Wheelchair Jaylene J. Toilet Jaylene K. Tub/Shower modA - Locomotion L. Walk/Wheelchair (B) Jaylene M. Stairs modA - Communication N. Comprehension (B) Soledad O. Expression (B) Soledad - Social Cognition P. Social Interaction Soledad Q. Problem Solving Soledad R. Memory Soledad - Endurance Fair - Balance Fair - Safety Awareness Fair QI SCORES: - Self-Care A. Eating 04-Supervision or touching assistance B. Oral hygiene 04-Supervision or touching assistance C. Toileting hygiene 03-Partial/moderate assistance E. Shower/bathe self 10-Not attempted due to environmental limitations F. Upper body dressing 03-Partial/moderate assistance G. Lower body dressing 02-Substantial/maximal assistance H. Putting on/taking off footwear 02-Substantial/maximal assistance - Mobility A. Roll left and right 04-Supervision or touching assistance B. Sit to lying 04-Supervision or touching assistance C. Lying to sitting on side of bed 04-Supervision or touching assistance D. Sit to stand 04-Supervision or touching assistance E. Chair/nvy-oo-jrkkm transfer 04-Supervision or touching assistance F. Toilet transfer 04-Supervision or touching assistance G. Car transfer 10-Not attempted due to environmental limitations I. Walk 10 feet 04-Supervision or touching assistance J. Walk 50 feet with two turns 04-Supervision or touching assistance K. Walk 150 feet 88-Not attempted due to medical condition or safety concerns L. Walking 10 feet on uneven surfaces 88-Not attempted due to medical condition or safety concerns M. 1 step (curb) 88-Not attempted due to medical condition or safety concerns N. 4 steps 88-Not attempted due to medical condition or safety concerns O. 12 steps 88-Not attempted due to medical condition or safety concerns P. Picking up object 88-Not attempted due to medical condition or safety concerns - Bladder and Bowel Bladder continence 0-Always continent Bowel continence 0-Always continent - Endurance Poor - Balance Poor - Safety Awareness Poor CURRENT FUNC. DEFICITS: Self-Care, Mobility, Endurance, Balance, and Safety Awareness SIGNATURE PANEL: (CDT)
[2019-08-01] MEDS: ACETAMINOPHEN 500 MG TAB PO PRN (19:53)
[2019-08-01] MEDS: ATORVASTATIN 40 MG TAB PO SCH (19:59)
[2019-08-02] MEDS: INSULIN -REGULAR HUMAN 50 UNIT/0.5 ML ML SQ SCH ×4 (07:30→20:47)
[2019-08-02] MEDS: APIXABAN 2.5 MG TABLET PO SCH ×2 (08:43→19:53)
[2019-08-02] MEDS: AMLODIPINE 10 MG TAB PO SCH (08:43)
[2019-08-02] MEDS: LOSARTAN POTASSIUM 50 MG TABLET PO SCH ×2 (08:43→19:53)
[2019-08-02] MEDS: METFORMIN HCL 500 MG TAB PO SCH ×2 (08:43→17:52)
[2019-08-02] MEDS: ASPIRIN EC 81 MG TAB PO SCH (08:44)
--- NOTE | 2019-08-02 10:10 | P.RH.PN ---
Estimated Length of Stay: 12 Expected Discharge Date: 08/11/19 Discharge Disposition Plan: Home Skilled Nursing Goal: Mobility, Transfers, Self Care Vital Signs: Last Vital Signs Temp 97.9 F 08/02/19 08:00 Pulse 62 08/02/19 08:43 Resp 16 08/02/19 08:00 BP 162/60 H 08/02/19 08:43 Pulse Ox 99 08/02/19 08:00 Laboratory: Laboratory Last Values WBC 5.5 K/uL (4.3-10.9) D 08/01/19 05:33 RBC 4.00 M/uL (3.86-4.86) 08/01/19 05:33 Hgb 11.7 g/dL (12.0-15.0) L 08/01/19 05:33 Hct 35.3 % (36.0-45.0) L 08/01/19 05:33 MCV 88.3 fL (80-100) 08/01/19 05:33 MCH 29.4 pg (27.0-35.0) 08/01/19 05:33 MCHC 33.3 g/dL (32.0-36.0) 08/01/19 05:33 RDW 12.7 % (12.1-15.2) 08/01/19 05:33 Plt Count 200 K/uL (152-406) D 08/01/19 05:33 MPV 8.8 fL (7.6-11.3) 08/01/19 05:33 Neutrophils % 58.2 % (41.7-73.7) 08/01/19 05:33 Lymphocytes % 30.1 % (15.3-44.8) 08/01/19 05:33 Monocytes % 10.4 % (3.3-12.3) 08/01/19 05:33 Eosinophils % 1.2 % (0-4.4) 08/01/19 05:33 Basophils % 0.1 % (0-1.3) 08/01/19 05:33 Absolute Neutrophils 3.2 K/uL (1.8-8.0) 08/01/19 05:33 Absolute Lymphocytes 1.7 K/uL (0.7-4.9) 08/01/19 05:33 Absolute Monocytes 0.6 K/uL (0.1-1.3) 08/01/19 05:33 Absolute Eosinophils 0.1 K/uL (0-0.5) 08/01/19 05:33 Absolute Basophils 0.0 K/uL (0-0.5) 08/01/19 05:33 Sodium 143 mmol/L (136-145) 08/01/19 05:33 Potassium 3.8 mmol/L (3.5-5.1) 08/01/19 05:33 Chloride 110 mmol/L (98-107) H 08/01/19 05:33 Carbon Dioxide 28 mmol/L (21-32) 08/01/19 05:33 BUN 9 mg/dL (7-18) 08/01/19 05:33 Creatinine 0.67 mg/dL (0.55-1.3) 08/01/19 05:33 Estimated GFR > 90 mL/min (=/>90) 08/01/19 05:33 Glucose 149 mg/dL (74-106) H 08/01/19 05:33 POC Glucose 163 mg/dl (65-120) H 08/02/19 07:35 Calcium 8.6 mg/dL (8.5-10.1) 08/01/19 05:33 Magnesium 2.2 mg/dL (1.8-2.4) 08/01/19 05:33 Albumin 3.1 g/dL (3.4-5.0) L 08/01/19 05:33 Prealbumin 21.4 mg/dL (20-40) 08/01/19 05:33 Urine Color Yellow 07/31/19 15:05 Urine Appearance Cloudy 07/31/19 15:05 Urine pH 6.5 (5.0-7.0) 07/31/19 15:05 Ur Specific [place] 1.020 (1.005-1.030) 07/31/19 15:05 Glucose (UA)(Auto) 2+ (NEG) H 07/31/19 15:05 Urine Ketones Negative (NEG) 07/31/19 15:05 Urine Blood Negative (NEG) 07/31/19 15:05 Urine Nitrite Negative (NEG) 07/31/19 15:05 Urine Bilirubin Negative (NEG) 07/31/19 15:05 Urine Urobilinogen 1.0 mg/dL (0.2-1.0) 07/31/19 15:05 Ur Leukocyte Esterase Negative (NEG) 07/31/19 15:05 Urine RBC <5 /HPF (NONE SEEN) 07/31/19 15:05 Urine WBC <5 /HPF (<5) 07/31/19 15:05 Ur Squamous Epith Cells <5 /HPF (NONE SEEN) 07/31/19 15:05 Urine Bacteria 20-50 /HPF (<20) H 07/31/19 15:05 Urine Mucus 1+ /HPF (NONE SEEN) 07/31/19 15:05 Urine Culture Reflexed Not needed 07/31/19 15:05 Urine Total Protein Negative (NEG) 07/31/19 15:05 Weight: 229 lb 6 oz Wound Present: No Closed Surgical Incision Present: No Negative Pressure Wound Therapy Present: No Physician Update: Labs reviewed and are stable. She is placed on reverse isolation due to the diagnosis of cancer. Will contact Dr. England. She is contact guard assistance walking 250' and up and down 10 steps. She is doing well with occupational therapy. Summary: Patient's care plan and termite inspector goals have been reviewed and revised as necessary. Please see the Rehabilitation Signature page for all necessary signatures.
[2019-08-02] MEDS ORDERED: MAGNESIUM CITRATE 300 ML BOT PO SCH (13:00)
--- NOTE | 2019-08-02 13:55 | FAST ---
ENCOUNTER DATE AND TIME: 08/02/2019 08:00 (CDT) NAME ANGE CUBA DATE OF : 1960 DATE OF ADMISSION: 07/31/2019 16:29 (CDT) PHONE: AGE: 59 N# [id number] GENDER: Female ENCOUNTER PHYSICIAN: Dr. Kodak Mcelroy M.D. 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 . EATING: Not assessed/no information CODE: - ORAL HYGIENE: ORAL HYGIENE - STEP 1: Does the patient complete the activity by him/herself with no assistance (physical, verbal/nonverbal cueing, setup/clean-up)? Yes. 1. [id number] ADMISSION PERFORMANCE: Independent CODE: 06 TOILETING HYGIENE: Not assessed/no information CODE: - BATHING: SHOWER/BATHE SELF - STEP 1: Does the patient complete the activity by him/herself with no assistance (physical, verbal/nonverbal cueing, setup/clean-up)? No. SHOWER/BATHE SELF - STEP 2: Does the patient need only setup/clean-up assistance from one helper? No. SHOWER/BATHE SELF - STEP 3: Does the patient need only verbal/nonverbal cueing or touching/steadying/contact guard assistance fro m one helper? Yes. 1. [id number] ADMISSION PERFORMANCE: Supervision or touching assistance CODE: 04 DRESSING - UPPER BODY: DRESSING - UPPER BODY - STEP 1: Does the patient complete the activity by him/herself with no assistance (physical, verbal/nonverbal cueing, setup/clean-up)? Yes. 1. [id number] ADMISSION PERFORMANCE: Independent CODE: 06 DRESSING - LOWER BODY: DRESSING - LOWER BODY - STEP 1: Does the patient complete the activity by him/herself with no assistance (physical, verbal/nonverbal cueing, setup/clean-up)? No. DRESSING - LOWER BODY - STEP 2: Does the patient need only setup/clean-up assistance from one helper? No. DRESSING - LOWER BODY - STEP 3: Does the patient need only verbal/nonverbal cueing or touching/steadying/contact guard assistance fro m one helper? Yes. 1. [id number] ADMISSION PERFORMANCE: Supervision or touching assistance CODE: 04 PUTTING ON/TAKING OFF FOOTWEAR: FOOTWEAR - STEP 1: Does the patient complete the activity by him/herself with no assistance (physical, verbal/nonverbal cueing, setup/clean-up)? No. FOOTWEAR - STEP 2: Does the patient need only setup/clean-up assistance from one helper? No. FOOTWEAR - STEP 3: Does the patient need only verbal/nonverbal cueing or touching/steadying/contact guard assistance fro m one helper? Yes. 1. [id number] ADMISSION PERFORMANCE: Supervision or touching assistance CODE: 04 DOES THE PATIENT USE A WHEELCHAIR/SCOOTER? CODE: EXPR INDICATE THE TYPE OF WHEELCHAIR/SCOOTER USED: CODE: EXPR INDICATE THE TYPE OF WHEELCHAIR/SCOOTER USED: CODE: EXPR BLADDER AND BOWEL: CODE: EXPR CODE: EXPR SIGNATURE PANEL: The following modified sections: 1. [id number] Admission Performance, 1. [id number] Admission Performance, 1. DI0977b Admission Performance, 1. [id number] Admission Performance, 1. WA0125u Admission Performance were [electronically] signed by GISSELL Booth on MonAug 02 2019 13:54:24 GMT-0500 (Central Daylight Time)
[2019-08-02] MEDS: NYSTATIN PWDR 100000 UNIT/GM TOP SCH (19:53)
[2019-08-02] MEDS: ACETAMINOPHEN 500 MG TAB PO PRN (19:55)
[2019-08-02] MEDS: DOCUSATE NA/SENNA CONC 1 TAB PO PRN (19:55)
[2019-08-02] MEDS: ATORVASTATIN 40 MG TAB PO SCH (20:48)
--- NOTE | 2019-08-03 02:13 | FAST ---
SHIFT START DATE/TIME: 08/02/2019 19:00 (CDT) SHIFT END DATE/TIME: 08/03/2019 07:00 (CDT) NAME ANGE CUBA DATE OF : 1960 DATE OF ADMISSION: 07/31/2019 16:29 (CDT) PHONE: AGE: 59 N# [id number] GENDER: Female ENCOUNTER PHYSICIAN: Dr. Kodak Mcelroy M.D. 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 . EATING: Not assessed/no information CODE: - ORAL HYGIENE: Not assessed/no information CODE: - TOILETING HYGIENE: TOILETING HYGIENE - STEP 1: Does the patient complete the activity by him/herself with no assistance (physical, verbal/nonverbal cueing, setup/clean-up)? No. TOILETING HYGIENE - STEP 2: Does the patient need only setup/clean-up assistance from one helper? No. TOILETING HYGIENE - STEP 3: Does the patient need only verbal/nonverbal cueing or touching/steadying/contact guard assistance fro m one helper? Yes. 1. [id number] ADMISSION PERFORMANCE: Supervision or touching assistance CODE: 04 BATHING: Not assessed/no information CODE: - DRESSING - UPPER BODY: Not assessed/no information CODE: - DRESSING - LOWER BODY: Not assessed/no information CODE: - PUTTING ON/TAKING OFF FOOTWEAR: Not assessed/no information CODE: - ROLL LEFT AND RIGHT: ROLL LEFT AND RIGHT - STEP 1: Does the patient complete the activity by him/herself with no assistance (physical, verbal/nonverbal cueing, setup/clean-up)? No. ROLL LEFT AND RIGHT - STEP 2: Does the patient need only setup/clean-up assistance from one helper? No. ROLL LEFT AND RIGHT - STEP 3: Does the patient need only verbal/nonverbal cueing or touching/steadying/contact guard assistance fro m one helper? Yes. 1. [id number] ADMISSION PERFORMANCE: Supervision or touching assistance CODE: 04 SIT TO LYING: SIT TO LYING - STEP 1: Does the patient complete the activity by him/herself with no assistance (physical, verbal/nonverbal cueing, setup/clean-up)? No. SIT TO LYING - STEP 2: Does the patient need only setup/clean-up assistance from one helper? No. SIT TO LYING - STEP 3: Does the patient need only verbal/nonverbal cueing or touching/steadying/contact guard assistance fro m one helper? Yes. 1. [id number] ADMISSION PERFORMANCE: Supervision or touching assistance CODE: 04 LYING TO SITTING: LYING TO SITTING ON SIDE OF BED - STEP 1: Does the patient complete the activity by him/herself with no assistance (physical, verbal/nonverbal cueing, setup/clean-up)? No. LYING TO SITTING ON SIDE OF BED - STEP 2: Does the patient need only setup/clean-up assistance from one helper? No. LYING TO SITTING ON SIDE OF BED - STEP 3: Does the patient need only verbal/nonverbal cueing or touching/steadying/contact guard assistance fro m one helper? Yes. 1. [id number] ADMISSION PERFORMANCE: Supervision or touching assistance CODE: 04 SIT TO STAND: SIT TO STAND - STEP 1: Does the patient complete the activity by him/herself with no assistance (physical, verbal/nonverbal cueing, setup/clean-up)? No. SIT TO STAND - STEP 2: Does the patient need only setup/clean-up assistance from one helper? No. SIT TO STAND - STEP 3: Does the patient need only verbal/nonverbal cueing or touching/steadying/contact guard assistance fro m one helper? Yes. 1. [id number] ADMISSION PERFORMANCE: Supervision or touching assistance CODE: 04 TRANSFERS: BED, CHAIR: CHAIR/[id number] TRANSFER - STEP 1: Does the patient complete the activity by him/herself with no assistance (physical, verbal/nonverbal cueing, setup/clean-up)? No. CHAIR/[id number] TRANSFER - STEP 2: Does the patient need only setup/clean-up assistance from one helper? No. CHAIR/[id number] TRANSFER - STEP 3: Does the patient need only verbal/nonverbal cueing or touching/steadying/contact guard assistance fro m one helper? Yes. 1. [id number] ADMISSION PERFORMANCE: Supervision or touching assistance CODE: 04 TRANSFER TOILET: TOILET TRANSFER - STEP 1: Does the patient complete the activity by him/herself with no assistance (physical, verbal/nonverbal cueing, setup/clean-up)? No. TOILET TRANSFER - STEP 2: Does the patient need only setup/clean-up assistance from one helper? No. TOILET TRANSFER - STEP 3: Does the patient need only verbal/nonverbal cueing or touching/steadying/contact guard assistance fro m one helper? Yes. 1. [id number] ADMISSION PERFORMANCE: Supervision or touching assistance CODE: 04 TRANSFERS: CAR: Not assessed/no information CODE: - WALK 10 FEET: Not assessed/no information CODE: - 1 STEP (CURB): Not assessed/no information CODE: - PICKING UP OBJECT: Not assessed/no information CODE: - DOES THE PATIENT USE A WHEELCHAIR/SCOOTER? CODE: EXPR WHEEL 50 FEET WITH TWO TURNS: Not assessed/no information CODE: - INDICATE THE TYPE OF WHEELCHAIR/SCOOTER USED: CODE: EXPR WHEEL 150 FEET: Not assessed/no information CODE: - INDICATE THE TYPE OF WHEELCHAIR/SCOOTER USED: CODE: EXPR BLADDER AND BOWEL: H350. BLADDER CONTINENCE (3-DAY ASSESSMENT PERIOD): Always continent (no documented incontinence) CODE: 0 H400. BOWEL CONTINENCE (3-DAY ASSESSMENT PERIOD): Always continent CODE: 0
[2019-08-03 05:33] VITALS: BMI 37.8
[2019-08-03] MEDS: INSULIN -REGULAR HUMAN 50 UNIT/0.5 ML ML SQ SCH ×4 (07:30→20:28)
[2019-08-03] MEDS: SODIUM CHLORIDE 0.9% 10ML INJ IV SCH ×2 (08:00→20:00)
[2019-08-03] MEDS: NYSTATIN PWDR 100000 UNIT/GM TOP SCH ×2 (08:00→20:00)
[2019-08-03] MEDS: METFORMIN HCL 500 MG TAB PO SCH ×2 (08:26→17:10)
[2019-08-03] MEDS: ASPIRIN EC 81 MG TAB PO SCH (08:26)
[2019-08-03] MEDS: APIXABAN 2.5 MG TABLET PO SCH ×2 (08:26→20:27)
[2019-08-03] MEDS: LOSARTAN POTASSIUM 50 MG TABLET PO SCH ×2 (08:26→20:27)
[2019-08-03] MEDS: AMLODIPINE 10 MG TAB PO SCH (08:26)
[2019-08-03] MEDS: ATORVASTATIN 40 MG TAB PO SCH (20:27)
[2019-08-03] MEDS: ACETAMINOPHEN 500 MG TAB PO PRN (20:30)
[2019-08-04] MEDS: INSULIN -REGULAR HUMAN 50 UNIT/0.5 ML ML SQ SCH ×4 (07:30→21:00)
[2019-08-04] MEDS: SODIUM CHLORIDE 0.9% 10ML INJ IV SCH ×2 (08:21→19:51)
[2019-08-04] MEDS: AMLODIPINE 10 MG TAB PO SCH (08:21)
[2019-08-04] MEDS: LOSARTAN POTASSIUM 50 MG TABLET PO SCH ×2 (08:22→19:59)
[2019-08-04] MEDS: ASPIRIN EC 81 MG TAB PO SCH (08:22)
[2019-08-04] MEDS: METFORMIN HCL 500 MG TAB PO SCH ×2 (08:22→17:18)
[2019-08-04] MEDS: APIXABAN 2.5 MG TABLET PO SCH ×2 (08:22→19:51)
[2019-08-04] MEDS: NYSTATIN PWDR 100000 UNIT/GM TOP SCH ×2 (08:25→19:50)
--- NOTE | 2019-08-04 14:03 | FAST ---
SHIFT START DATE/TIME: 08/04/2019 07:00 (CDT) SHIFT END DATE/TIME: 08/04/2019 19:00 (CDT) NAME ANGE CUBA DATE OF : 1960 DATE OF ADMISSION: 07/31/2019 16:29 (CDT) PHONE: AGE: 59 N# [id number] GENDER: Female ENCOUNTER PHYSICIAN: Dr. Kodak Mcelroy M.D. 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 . EATING: EATING - STEP 1: Does the patient complete the activity by him/herself with no assistance (physical, verbal/nonverbal cueing, setup/clean-up)? No. EATING - STEP 2: Does the patient need only setup/clean-up assistance from one helper? Yes. 1. [id number] ADMISSION PERFORMANCE: Setup or clean-up assistance CODE: 05 ORAL HYGIENE: ORAL HYGIENE - STEP 1: Does the patient complete the activity by him/herself with no assistance (physical, verbal/nonverbal cueing, setup/clean-up)? Yes. 1. [id number] ADMISSION PERFORMANCE: Independent CODE: 06 TOILETING HYGIENE: TOILETING HYGIENE - STEP 1: Does the patient complete the activity by him/herself with no assistance (physical, verbal/nonverbal cueing, setup/clean-up)? No. TOILETING HYGIENE - STEP 2: Does the patient need only setup/clean-up assistance from one helper? Yes. 1. [id number] ADMISSION PERFORMANCE: Setup or clean-up assistance CODE: 05 BATHING: Not assessed/no information CODE: - DRESSING - UPPER BODY: DRESSING - UPPER BODY - STEP 1: Does the patient complete the activity by him/herself with no assistance (physical, verbal/nonverbal cueing, setup/clean-up)? Yes. 1. [id number] ADMISSION PERFORMANCE: Independent CODE: 06 DRESSING - LOWER BODY: DRESSING - LOWER BODY - STEP 1: Does the patient complete the activity by him/herself with no assistance (physical, verbal/nonverbal cueing, setup/clean-up)? No. DRESSING - LOWER BODY - STEP 2: Does the patient need only setup/clean-up assistance from one helper? Yes. 1. [id number] ADMISSION PERFORMANCE: Setup or clean-up assistance CODE: 05 PUTTING ON/TAKING OFF FOOTWEAR: FOOTWEAR - STEP 1: Does the patient complete the activity by him/herself with no assistance (physical, verbal/nonverbal cueing, setup/clean-up)? No. FOOTWEAR - STEP 2: Does the patient need only setup/clean-up assistance from one helper? Yes. 1. [id number] ADMISSION PERFORMANCE: Setup or clean-up assistance CODE: 05 ROLL LEFT AND RIGHT: ROLL LEFT AND RIGHT - STEP 1: Does the patient complete the activity by him/herself with no assistance (physical, verbal/nonverbal cueing, setup/clean-up)? No. ROLL LEFT AND RIGHT - STEP 2: Does the patient need only setup/clean-up assistance from one helper? No. ROLL LEFT AND RIGHT - STEP 3: Does the patient need only verbal/nonverbal cueing or touching/steadying/contact guard assistance fro m one helper? Yes. 1. [id number] ADMISSION PERFORMANCE: Supervision or touching assistance CODE: 04 SIT TO LYING: SIT TO LYING - STEP 1: Does the patient complete the activity by him/herself with no assistance (physical, verbal/nonverbal cueing, setup/clean-up)? No. SIT TO LYING - STEP 2: Does the patient need only setup/clean-up assistance from one helper? No. SIT TO LYING - STEP 3: Does the patient need only verbal/nonverbal cueing or touching/steadying/contact guard assistance fro m one helper? Yes. 1. [id number] ADMISSION PERFORMANCE: Supervision or touching assistance CODE: 04 LYING TO SITTING: LYING TO SITTING ON SIDE OF BED - STEP 1: Does the patient complete the activity by him/herself with no assistance (physical, verbal/nonverbal cueing, setup/clean-up)? No. LYING TO SITTING ON SIDE OF BED - STEP 2: Does the patient need only setup/clean-up assistance from one helper? No. LYING TO SITTING ON SIDE OF BED - STEP 3: Does the patient need only verbal/nonverbal cueing or touching/steadying/contact guard assistance fro m one helper? Yes. 1. [id number] ADMISSION PERFORMANCE: Supervision or touching assistance CODE: 04 SIT TO STAND: SIT TO STAND - STEP 1: Does the patient complete the activity by him/herself with no assistance (physical, verbal/nonverbal cueing, setup/clean-up)? No. SIT TO STAND - STEP 2: Does the patient need only setup/clean-up assistance from one helper? No. SIT TO STAND - STEP 3: Does the patient need only verbal/nonverbal cueing or touching/steadying/contact guard assistance fro m one helper? Yes. 1. [id number] ADMISSION PERFORMANCE: Supervision or touching assistance CODE: 04 TRANSFERS: BED, CHAIR: CHAIR/[id number] TRANSFER - STEP 1: Does the patient complete the activity by him/herself with no assistance (physical, verbal/nonverbal cueing, setup/clean-up)? No. CHAIR/[id number] TRANSFER - STEP 2: Does the patient need only setup/clean-up assistance from one helper? Yes. 1. [id number] ADMISSION PERFORMANCE: Setup or clean-up assistance CODE: 05 TRANSFER TOILET: TOILET TRANSFER - STEP 1: Does the patient complete the activity by him/herself with no assistance (physical, verbal/nonverbal cueing, setup/clean-up)? No. TOILET TRANSFER - STEP 2: Does the patient need only setup/clean-up assistance from one helper? No. TOILET TRANSFER - STEP 3: Does the patient need only verbal/nonverbal cueing or touching/steadying/contact guard assistance fro m one helper? Yes. 1. [id number] ADMISSION PERFORMANCE: Supervision or touching assistance CODE: 04 TRANSFERS: CAR: Not assessed/no information CODE: - WALK 10 FEET: Not assessed/no information CODE: - 1 STEP (CURB): Not assessed/no information CODE: - PICKING UP OBJECT: Not assessed/no information CODE: - DOES THE PATIENT USE A WHEELCHAIR/SCOOTER? Q1. DOES THE PATIENT USE A WHEELCHAIR/SCOOTER?: Yes CODE: 1 WHEEL 50 FEET WITH TWO TURNS: WHEEL 50 FEET WITH TWO TURNS - STEP 1: Does the patient complete the activity by him/herself with no assistance (physical, verbal/nonverbal cueing, setup/clean-up)? No. WHEEL 50 FEET WITH TWO TURNS - STEP 2: Does the patient need only setup/clean-up assistance from one helper? Yes. 1. [id number] ADMISSION PERFORMANCE: Setup or clean-up assistance CODE: 05 INDICATE THE TYPE OF WHEELCHAIR/SCOOTER USED: RR1. INDICATE THE TYPE OF WHEELCHAIR/SCOOTER USED.: Manual CODE: 1 WHEEL 150 FEET: WHEEL 150 FEET - STEP 1: Does the patient complete the activity by him/herself with no assistance (physical, verbal/nonverbal cueing, setup/clean-up)? No. WHEEL 150 FEET - STEP 2: Does the patient need only setup/clean-up assistance from one helper? Yes. 1. [id number] ADMISSION PERFORMANCE: Setup or clean-up assistance CODE: 05 INDICATE THE TYPE OF WHEELCHAIR/SCOOTER USED: SS1. INDICATE THE TYPE OF WHEELCHAIR/SCOOTER USED.: Manual CODE: 1 BLADDER AND BOWEL: H350. BLADDER CONTINENCE (3-DAY ASSESSMENT PERIOD): Always continent (no documented incontinence) CODE: 0 H400. BOWEL CONTINENCE (3-DAY ASSESSMENT PERIOD): Always continent CODE: 0 SIGNATURE PANEL: The following modified sections: 1. [id number] Admission Performance, 1. [id number] Admission Performance, 1. [id number] Admission Performance, 1. TC0570a Admission Performance, 1. RD9653c Admission Performance, 1. RW7523t Admission Performance, 1. JY2627b Admission Performance, 1. [id number] Admission Performance , 1. JA2572d Admission Performance, 1. DA1244o Admission Performance, 1. OB6339W Admission Performanc e, 1. UE2808S Admission Performance, 1. AN3579W Admission Performance, 1. [id number] Admission Performan ce, 1. AW6134E Admission Performance, 1. AD2008G Admission Performance, 1. CD0721F Admission Performa nce, 1. HE0583G Admission Performance, 1. AQ6426C Admission Performance, Q1. Does the patient use a w heelchair/scooter?, 1. FF2142W Admission Performance, 1. [id number] Admission Performance, RR1. Indicate the type of wheelchair/scooter used., 1. UJ2255G Admission Performance, Code, SS1. Indicate the type of wheelchair/scooter used., H350. Bladder Continence (3-day assessment period), H400. Bowel Contine nce (3-day assessment period) were [electronically] signed by Luisa Mancini C.N.A. on MonAug 04 2019 14:02:25 GMT-0500 (Central Daylight Time)
[2019-08-04] MEDS: ACETAMINOPHEN 500 MG TAB PO PRN ×2 (17:33→21:05)
[2019-08-04] MEDS: DOCUSATE NA/SENNA CONC 1 TAB PO PRN (19:51)
[2019-08-04] MEDS: ATORVASTATIN 40 MG TAB PO SCH (19:59)
[2019-08-05] MEDS: INSULIN -REGULAR HUMAN 50 UNIT/0.5 ML ML SQ SCH ×4 (07:30→21:00)
[2019-08-05] MEDS: SODIUM CHLORIDE 0.9% 10ML INJ IV SCH ×2 (08:00→20:39)
[2019-08-05] MEDS: NYSTATIN PWDR 100000 UNIT/GM TOP SCH ×2 (08:12→20:39)
[2019-08-05] MEDS: AMLODIPINE 10 MG TAB PO SCH (08:12)
[2019-08-05] MEDS: APIXABAN 2.5 MG TABLET PO SCH ×2 (08:12→20:27)
[2019-08-05] MEDS: METFORMIN HCL 500 MG TAB PO SCH ×2 (08:12→16:11)
[2019-08-05] MEDS: LOSARTAN POTASSIUM 50 MG TABLET PO SCH ×2 (08:12→20:27)
[2019-08-05] MEDS: ASPIRIN EC 81 MG TAB PO SCH (08:12)
--- NOTE | 2019-08-05 18:37 | R.PN ---
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 SUBJECTIVE: Pt denied any Shortness of Breath. Pt denied any depression. Labs reviewed. WBC 5.5, Hgb 11.7, Plt 200, prealbumin 21.4, Glucose 158 to 173. UA shows bacteria 20 to 50. Ambulated independently without an assistive device. Up and down 20 steps independently. Self propelled wheelchair 250' with maximum assistance. VITAL SIGNS Temperature: 97.6 F SBP/DBP: 141/60 Pulse: 72 Resp: 14 MEDICATION ALLERGIES: No Known Drug Allergies (NKDA) ENVIRONMENTAL ALLERGIES: None Known - Substance Allergies None Known - Other Allergies None Known NURSING: - Shower allowing shower - Bladder care per protocol - Skin care per protocol PRECAUTIONS: - Weight Bearing Precaution WBAT right LE and UE ACTIVITIES OOB only with supervision THERAPIES: - Occupational Therapy Cognitive Retraining. Visual Perceptual Training. - Dietary and Nutrition Adequate Nutrition. Nutritional Education. Nutritional Supplements. - Speech Therapy Cognitive Training. Expressive Language Skills. Memory Strategies. Receptive Language Skills. Speech Intelligibility Training. PHYSICAL EXAM - Gen Alert and awake Lying in bed No apparent distress Oriented to: person, time, and place - Skin No skin breakdown. - Eyes Left eye blindness. - ENMT No abnormalities - Neck No abnormalities - CVS RRR - Chest No abnormalities - Abd Soft - GI Non distended Deferred - No abnormalities - Ext No significant edema - MSK 4+/5 weakness in right upper and lower extremity - Neuro Right face, arm and leg numbness and mild weakness. - Psych Mild anxiety. ASSESSMENT: Pt. is a 59 yo Right-handed white female.On 07/29/2019 Pt. 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 .Her impairment category is Stroke 01 - Right Body (Left Brain) (01.2).Pre-morbidly, Pt. was independent/mod-I in Transfers Control, L ocomotion, and Self-Care; and she had good Balance, Safety Awareness, Social Cognition, and Communica tion.Currently, she has deficits of Transfers Control, Locomotion, Safety Awareness, Balance, Self-Ca re, Social Cognition, and Communication.Pt. is now referred to [facility] for acute in-patient rehabilitation in order to maximize patient's functional independence in activities of daily living, strength, ROM, and mobility.- Rehab Goal Patient has realistic goal of being discharged at assistance level 6-Soledad to reside at Home with Fam belkis/Relatives. MDM/PLAN: - Physical Therapy Gait dysfunction - to improve, our physical therapists will perform initial evaluation of pt's statu s upon admission and devise an individualized program for Gait Training, and Wheel Chair mobility Inability to transfer - to improve, our physical therapists will perform initial evaluation of pt's status upon admission and devise an individualized program for Bed mobility Need for home safety evaluation - to improve, our physical therapists will perform initial evaluatio n of pt's status upon admission and devise an individualized program for Home Evaluation Need in caregiver upon discharge - to improve, our physical therapists will perform initial evaluati on of pt's status upon admission and devise an individualized program for Caregiver Training Edema - to improve, our physical therapists will perform initial evaluation of pt's status upon admi ssion and devise an individualized program for Elevation Training, and Lymphedema Therapy New precaution - to improve, our physical therapists will perform initial evaluation of pt's status upon admission and devise an individualized program for Patient precaution education Poor balance - to improve, our physical therapists will perform initial evaluation of pt's status up on admission and devise an individualized program for Balance Training Weakness - to improve, our physical therapists will perform initial evaluation of pt's status upon a dmission and devise an individualized program for Aquatic Therapy, Neuromuscular Reeducation, and Str engthening Achieving independence - to improve, our physical therapists will perform initial evaluation of pt's status upon admission and devise an individualized program for Community Reintegration Activities - Occupational Therapy ADL deficits - to improve, our occupation therapists will perform initial evaluation of pt's status upon admission and devise an individualized program for Bathing, Bed mobility, Community Reintegratio n, Cooking, Dressing, Eating, Fine Motor Skills, Grooming, Homemaking, Kitchen Mobility, Laundry, Pat ient Education, Safety Awareness, Splinting - Positioning, Transfers(Toilet, Tub, Shower), and Wheel Chair Management Cognitive deficits - to improve, our occupation therapists will perform initial evaluation of pt's s tatus upon admission and devise an individualized program for Cognition - orientation Need for wound care coordinator - to improve, our occupation therapists will perform initial evaluation of pt's status upon admission and devise an individualized program for Caregiver Training Weakness - to improve, our occupation therapists will perform initial evaluation of pt's status upon admission and devise an individualized program for Aquatic Therapy, Balance, Endurance, UE ROM, and UE strengthening - Other See attached MAR (Medication Administration Record) - Diet Type Continue Regular - Diet - Liquid Texture Continue Regular - Tube Feed Continue N/A - Bladder care per protocol - Weight Bearing Precaution WBAT right LE and UE - Skin care per protocol - Diet - Solid Texture Continue Regular - Shower allowing shower for Dementia, TBI, Stroke, or others FUNCTIONAL STATUS: UPDATED AT WEEKLY TEAM CONFERENCE - Walking Same score based on distance walked: 3(>=150ft) FUNCTIONAL STATUS: - Self-Care A. Eating Soledad B. Grooming Soledad C. Bathing Jaylene D. Dressing - Upper sup E. Dressing - Lower Jaylene F. Toileting sup - Sphincter Control G. Bladder control sup H. Bowel control sup - Transfers Control I. Bed/Chair/Wheelchair Jaylene J. Toilet Jaylene K. Tub/Shower modA - Locomotion L. Walk/Wheelchair (B) Jaylene M. Stairs modA - Communication N. Comprehension (B) Soledad O. Expression (B) Soledad - Social Cognition P. Social Interaction Soledad Q. Problem Solving Soledad R. Memory Soledad - Endurance Fair - Balance Fair - Safety Awareness Fair QI SCORES: - Self-Care A. Eating 04-Supervision or touching assistance B. Oral hygiene 04-Supervision or touching assistance C. Toileting hygiene 03-Partial/moderate assistance E. Shower/bathe self 10-Not attempted due to environmental limitations F. Upper body dressing 03-Partial/moderate assistance G. Lower body dressing 02-Substantial/maximal assistance H. Putting on/taking off footwear 02-Substantial/maximal assistance - Mobility A. Roll left and right 04-Supervision or touching assistance B. Sit to lying 04-Supervision or touching assistance C. Lying to sitting on side of bed 04-Supervision or touching assistance D. Sit to stand 04-Supervision or touching assistance E. Chair/snx-ex-yzner transfer 04-Supervision or touching assistance F. Toilet transfer 04-Supervision or touching assistance G. Car transfer 10-Not attempted due to environmental limitations I. Walk 10 feet 04-Supervision or touching assistance J. Walk 50 feet with two turns 04-Supervision or touching assistance K. Walk 150 feet 88-Not attempted due to medical condition or safety concerns L. Walking 10 feet on uneven surfaces 88-Not attempted due to medical condition or safety concerns M. 1 step (curb) 88-Not attempted due to medical condition or safety concerns N. 4 steps 88-Not attempted due to medical condition or safety concerns O. 12 steps 88-Not attempted due to medical condition or safety concerns P. Picking up object 88-Not attempted due to medical condition or safety concerns - Bladder and Bowel Bladder continence 0-Always continent Bowel continence 0-Always continent - Endurance Poor - Balance Poor - Safety Awareness Poor CURRENT FUNC. DEFICITS: Self-Care, Mobility, Endurance, Balance, and Safety Awareness SIGNATURE PANEL: (CDT)
[2019-08-05] MEDS: ACETAMINOPHEN 500 MG TAB PO PRN (20:26)
[2019-08-05] MEDS: ATORVASTATIN 40 MG TAB PO SCH (20:27)
[2019-08-06] MEDS: INSULIN -REGULAR HUMAN 50 UNIT/0.5 ML ML SQ SCH ×4 (07:30→20:01)
[2019-08-06] MEDS: SODIUM CHLORIDE 0.9% 10ML INJ IV SCH ×2 (08:00→20:00)
[2019-08-06] MEDS: APIXABAN 2.5 MG TABLET PO SCH ×2 (08:08→19:56)
[2019-08-06] MEDS: NYSTATIN PWDR 100000 UNIT/GM TOP SCH ×2 (08:08→19:56)
[2019-08-06] MEDS: ASPIRIN EC 81 MG TAB PO SCH (08:09)
[2019-08-06] MEDS: LOSARTAN POTASSIUM 50 MG TABLET PO SCH ×2 (08:09→19:56)
[2019-08-06] MEDS: METFORMIN HCL 500 MG TAB PO SCH ×2 (08:09→16:44)
[2019-08-06] MEDS: AMLODIPINE 10 MG TAB PO SCH (08:10)
--- NOTE | 2019-08-06 18:54 | R.PN ---
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 SUBJECTIVE: Pt denied any Shortness of Breath. Pt denied any depression. Labs reviewed. WBC 5.5, Hgb 11.7, Plt 200, prealbumin 21.4, Glucose 151 to 171. UA shows bacteria 20 to 50. Ambulated independently without an assistive device. Up and down 50 steps independently. VITAL SIGNS Temperature: 97.2 F SBP/DBP: 168/79 Pulse: 72 Resp: 16 MEDICATION ALLERGIES: No Known Drug Allergies (NKDA) ENVIRONMENTAL ALLERGIES: None Known - Substance Allergies None Known - Other Allergies None Known NURSING: - Shower allowing shower - Bladder care per protocol - Skin care per protocol PRECAUTIONS: - Weight Bearing Precaution WBAT right LE and UE ACTIVITIES OOB only with supervision THERAPIES: - Occupational Therapy Cognitive Retraining. Visual Perceptual Training. - Dietary and Nutrition Adequate Nutrition. Nutritional Education. Nutritional Supplements. - Speech Therapy Cognitive Training. Expressive Language Skills. Memory Strategies. Receptive Language Skills. Speech Intelligibility Training. PHYSICAL EXAM - Gen Alert and awake Lying in bed No apparent distress Oriented to: person, time, and place - Skin No skin breakdown. - Eyes Left eye blindness. - ENMT No abnormalities - Neck No abnormalities - CVS RRR - Chest No abnormalities - Abd Soft - GI Non distended Deferred - No abnormalities - Ext No significant edema - MSK 4+/5 weakness in right upper and lower extremity - Neuro Right face, arm and leg numbness and mild weakness. - Psych Mild anxiety. ASSESSMENT: Pt. is a 59 yo Right-handed white female.On 07/29/2019 Pt. 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 .Her impairment category is Stroke 01 - Right Body (Left Brain) (01.2).Pre-morbidly, Pt. was independent/mod-I in Transfers Control, L ocomotion, and Self-Care; and she had good Balance, Safety Awareness, Social Cognition, and Communica tion.Currently, she has deficits of Transfers Control, Locomotion, Safety Awareness, Balance, Self-Ca re, Social Cognition, and Communication.Pt. is now referred to [facility] for acute in-patient rehabilitation in order to maximize patient's functional independence in activities of daily living, strength, ROM, and mobility.- Rehab Goal Patient has realistic goal of being discharged at assistance level 6-Soledad to reside at Home with Fam belkis/Relatives. MDM/PLAN: - Physical Therapy Gait dysfunction - to improve, our physical therapists will perform initial evaluation of pt's statu s upon admission and devise an individualized program for Gait Training, and Wheel Chair mobility Inability to transfer - to improve, our physical therapists will perform initial evaluation of pt's status upon admission and devise an individualized program for Bed mobility Need for home safety evaluation - to improve, our physical therapists will perform initial evaluatio n of pt's status upon admission and devise an individualized program for Home Evaluation Need in caregiver upon discharge - to improve, our physical therapists will perform initial evaluati on of pt's status upon admission and devise an individualized program for Caregiver Training Edema - to improve, our physical therapists will perform initial evaluation of pt's status upon admi ssion and devise an individualized program for Elevation Training, and Lymphedema Therapy New precaution - to improve, our physical therapists will perform initial evaluation of pt's status upon admission and devise an individualized program for Patient precaution education Poor balance - to improve, our physical therapists will perform initial evaluation of pt's status up on admission and devise an individualized program for Balance Training Weakness - to improve, our physical therapists will perform initial evaluation of pt's status upon a dmission and devise an individualized program for Aquatic Therapy, Neuromuscular Reeducation, and Str engthening Achieving independence - to improve, our physical therapists will perform initial evaluation of pt's status upon admission and devise an individualized program for Community Reintegration Activities - Occupational Therapy ADL deficits - to improve, our occupation therapists will perform initial evaluation of pt's status upon admission and devise an individualized program for Bathing, Bed mobility, Community Reintegratio n, Cooking, Dressing, Eating, Fine Motor Skills, Grooming, Homemaking, Kitchen Mobility, Laundry, Pat ient Education, Safety Awareness, Splinting - Positioning, Transfers(Toilet, Tub, Shower), and Wheel Chair Management Cognitive deficits - to improve, our occupation therapists will perform initial evaluation of pt's s tatus upon admission and devise an individualized program for Cognition - orientation Need for critical care transport nurse - to improve, our occupation therapists will perform initial evaluation of pt's status upon admission and devise an individualized program for Caregiver Training Weakness - to improve, our occupation therapists will perform initial evaluation of pt's status upon admission and devise an individualized program for Aquatic Therapy, Balance, Endurance, UE ROM, and UE strengthening - Other See attached MAR (Medication Administration Record) - Diet Type Continue Regular - Diet - Liquid Texture Continue Regular - Tube Feed Continue N/A - Bladder care per protocol - Weight Bearing Precaution WBAT right LE and UE - Skin care per protocol - Diet - Solid Texture Continue Regular - Shower allowing shower for Dementia, TBI, Stroke, or others FUNCTIONAL STATUS: UPDATED AT WEEKLY TEAM CONFERENCE - Walking Same score based on distance walked: 3(>=150ft) FUNCTIONAL STATUS: - Self-Care A. Eating Soledad B. Grooming Soledad C. Bathing Jaylene D. Dressing - Upper sup E. Dressing - Lower Jaylene F. Toileting sup - Sphincter Control G. Bladder control sup H. Bowel control sup - Transfers Control I. Bed/Chair/Wheelchair Jaylene J. Toilet Jaylene K. Tub/Shower modA - Locomotion L. Walk/Wheelchair (B) Jaylene M. Stairs modA - Communication N. Comprehension (B) Soledad O. Expression (B) Soledad - Social Cognition P. Social Interaction Soledad Q. Problem Solving Soledad R. Memory Soledad - Endurance Fair - Balance Fair - Safety Awareness Fair QI SCORES: - Self-Care A. Eating 04-Supervision or touching assistance B. Oral hygiene 04-Supervision or touching assistance C. Toileting hygiene 03-Partial/moderate assistance E. Shower/bathe self 10-Not attempted due to environmental limitations F. Upper body dressing 03-Partial/moderate assistance G. Lower body dressing 02-Substantial/maximal assistance H. Putting on/taking off footwear 02-Substantial/maximal assistance - Mobility A. Roll left and right 04-Supervision or touching assistance B. Sit to lying 04-Supervision or touching assistance C. Lying to sitting on side of bed 04-Supervision or touching assistance D. Sit to stand 04-Supervision or touching assistance E. Chair/srf-dw-wabim transfer 04-Supervision or touching assistance F. Toilet transfer 04-Supervision or touching assistance G. Car transfer 10-Not attempted due to environmental limitations I. Walk 10 feet 04-Supervision or touching assistance J. Walk 50 feet with two turns 04-Supervision or touching assistance K. Walk 150 feet 88-Not attempted due to medical condition or safety concerns L. Walking 10 feet on uneven surfaces 88-Not attempted due to medical condition or safety concerns M. 1 step (curb) 88-Not attempted due to medical condition or safety concerns N. 4 steps 88-Not attempted due to medical condition or safety concerns O. 12 steps 88-Not attempted due to medical condition or safety concerns P. Picking up object 88-Not attempted due to medical condition or safety concerns - Bladder and Bowel Bladder continence 0-Always continent Bowel continence 0-Always continent - Endurance Poor - Balance Poor - Safety Awareness Poor CURRENT FUNC. DEFICITS: Self-Care, Mobility, Endurance, Balance, and Safety Awareness SIGNATURE PANEL: (CDT)
[2019-08-06] MEDS: ACETAMINOPHEN 500 MG TAB PO PRN (19:56)
[2019-08-06] MEDS: ATORVASTATIN 40 MG TAB PO SCH (20:08)
[2019-08-07] MEDS: INSULIN -REGULAR HUMAN 50 UNIT/0.5 ML ML SQ SCH ×4 (07:30→20:22)
[2019-08-07] MEDS: METFORMIN HCL 500 MG TAB PO SCH ×2 (09:00→16:42)
[2019-08-07] MEDS: NYSTATIN PWDR 100000 UNIT/GM TOP SCH ×2 (09:00→20:21)
[2019-08-07] MEDS: ASPIRIN EC 81 MG TAB PO SCH (09:00)
[2019-08-07] MEDS: APIXABAN 2.5 MG TABLET PO SCH ×2 (09:00→20:21)
[2019-08-07] MEDS: SODIUM CHLORIDE 0.9% 10ML INJ IV SCH ×3 (09:00→20:00)
[2019-08-07] MEDS: LOSARTAN POTASSIUM 50 MG TABLET PO SCH ×2 (09:01→20:21)
[2019-08-07] MEDS: AMLODIPINE 10 MG TAB PO SCH (09:01)
[2019-08-07] MEDS ORDERED: HEPARIN 500 UNIT/5 ML SYR IV PRN (09:28)
--- NOTE | 2019-08-07 15:21 | R.PN ---
ENCOUNTER DATE AND TIME: 08/07/2019 15:18 (CDT) NAME ANGE CUBA DATE OF : 1960 DATE OF ADMISSION: 07/31/2019 16:29 (CDT) 8 mm nonhemorrhagic subacute infarct suspected left basal ganglia. 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 SUBJECTIVE: Pt denied any Shortness of Breath. Pt denied any depression. Labs reviewed. WBC 5.5, Hgb 11.7, Plt 200, prealbumin 21.4, Glucose 128 to 181. UA shows bacteria 20 to 50. Ambulated independently without an assistive device. Up and down 50 steps independently. VITAL SIGNS Temperature: 97.2 F SBP/DBP: 130/63 Pulse: 89 Resp: 16 MEDICATION ALLERGIES: No Known Drug Allergies (NKDA) ENVIRONMENTAL ALLERGIES: None Known - Substance Allergies None Known - Other Allergies None Known NURSING: - Shower allowing shower - Bladder care per protocol - Skin care per protocol PRECAUTIONS: - Weight Bearing Precaution WBAT right LE and UE ACTIVITIES OOB only with supervision THERAPIES: - Occupational Therapy Cognitive Retraining. Visual Perceptual Training. - Dietary and Nutrition Adequate Nutrition. Nutritional Education. Nutritional Supplements. - Speech Therapy Cognitive Training. Expressive Language Skills. Memory Strategies. Receptive Language Skills. Speech Intelligibility Training. PHYSICAL EXAM - Gen Alert and awake Lying in bed No apparent distress Oriented to: person, time, and place - Skin No skin breakdown. - Eyes Left eye blindness. - ENMT No abnormalities - Neck No abnormalities - CVS RRR - Chest No abnormalities - Abd Soft - GI Non distended Deferred - No abnormalities - Ext No significant edema - MSK 4+/5 weakness in right upper and lower extremity - Neuro Right face, arm and leg numbness and mild weakness. - Psych Mild anxiety. ASSESSMENT: Pt. is a 59 yo Right-handed white female.On 07/29/2019 Pt. presented to [facility] with sudd en onset of right-side weakness.On 07/29/2019 she was admitted to [facility] with diagnosis 8 mm nonhemorrhagic subacute infarct suspected left basal ganglia. .Her impairment category is Stroke 01 - Right Body (Left Brain) (01.2).Pre-morbidly, Pt. was independent/mod-I in Transfers Control, L ocomotion, and Self-Care; and she had good Balance, Safety Awareness, Social Cognition, and Communica tion.Currently, she has deficits of Transfers Control, Locomotion, Safety Awareness, Balance, Self-Ca re, Social Cognition, and Communication.Pt. is now referred to [facility] for acute in-patient rehabilitation in order to maximize patient's functional independence in activities of daily living, strength, ROM, and mobility.- Rehab Goal Patient has realistic goal of being discharged at assistance level 6-Soledad to reside at Home with Fam belkis/Relatives. MDM/PLAN: - Physical Therapy Gait dysfunction - to improve, our physical therapists will perform initial evaluation of pt's statu s upon admission and devise an individualized program for Gait Training, and Wheel Chair mobility Inability to transfer - to improve, our physical therapists will perform initial evaluation of pt's status upon admission and devise an individualized program for Bed mobility Need for home safety evaluation - to improve, our physical therapists will perform initial evaluatio n of pt's status upon admission and devise an individualized program for Home Evaluation Need in caregiver upon discharge - to improve, our physical therapists will perform initial evaluati on of pt's status upon admission and devise an individualized program for Caregiver Training Edema - to improve, our physical therapists will perform initial evaluation of pt's status upon admi ssion and devise an individualized program for Elevation Training, and Lymphedema Therapy New precaution - to improve, our physical therapists will perform initial evaluation of pt's status upon admission and devise an individualized program for Patient precaution education Poor balance - to improve, our physical therapists will perform initial evaluation of pt's status up on admission and devise an individualized program for Balance Training Weakness - to improve, our physical therapists will perform initial evaluation of pt's status upon a dmission and devise an individualized program for Aquatic Therapy, Neuromuscular Reeducation, and Str engthening Achieving independence - to improve, our physical therapists will perform initial evaluation of pt's status upon admission and devise an individualized program for Community Reintegration Activities - Occupational Therapy ADL deficits - to improve, our occupation therapists will perform initial evaluation of pt's status upon admission and devise an individualized program for Bathing, Bed mobility, Community Reintegratio n, Cooking, Dressing, Eating, Fine Motor Skills, Grooming, Homemaking, Kitchen Mobility, Laundry, Pat ient Education, Safety Awareness, Splinting - Positioning, Transfers(Toilet, Tub, Shower), and Wheel Chair Management Cognitive deficits - to improve, our occupation therapists will perform initial evaluation of pt's s tatus upon admission and devise an individualized program for Cognition - orientation Need for child care group leader - to improve, our occupation therapists will perform initial evaluation of pt's status upon admission and devise an individualized program for Caregiver Training Weakness - to improve, our occupation therapists will perform initial evaluation of pt's status upon admission and devise an individualized program for Aquatic Therapy, Balance, Endurance, UE ROM, and UE strengthening - Other See attached MAR (Medication Administration Record) - Diet Type Continue Regular - Diet - Liquid Texture Continue Regular - Tube Feed Continue N/A - Bladder care per protocol - Weight Bearing Precaution WBAT right LE and UE - Skin care per protocol - Diet - Solid Texture Continue Regular - Shower allowing shower for Dementia, TBI, Stroke, or others FUNCTIONAL STATUS: UPDATED AT WEEKLY TEAM CONFERENCE - Walking Same score based on distance walked: 3(>=150ft) FUNCTIONAL STATUS: - Self-Care A. Eating Soledad B. Grooming Soledad C. Bathing Jaylene D. Dressing - Upper sup E. Dressing - Lower Jaylene F. Toileting sup - Sphincter Control G. Bladder control sup H. Bowel control sup - Transfers Control I. Bed/Chair/Wheelchair Jaylene J. Toilet Jaylene K. Tub/Shower modA - Locomotion L. Walk/Wheelchair (B) Jaylene M. Stairs modA - Communication N. Comprehension (B) Soledad O. Expression (B) Soledad - Social Cognition P. Social Interaction Soledad Q. Problem Solving Soledad R. Memory Soledad - Endurance Fair - Balance Fair - Safety Awareness Fair QI SCORES: - Self-Care A. Eating 04-Supervision or touching assistance B. Oral hygiene 04-Supervision or touching assistance C. Toileting hygiene 03-Partial/moderate assistance E. Shower/bathe self 10-Not attempted due to environmental limitations F. Upper body dressing 03-Partial/moderate assistance G. Lower body dressing 02-Substantial/maximal assistance H. Putting on/taking off footwear 02-Substantial/maximal assistance - Mobility A. Roll left and right 04-Supervision or touching assistance B. Sit to lying 04-Supervision or touching assistance C. Lying to sitting on side of bed 04-Supervision or touching assistance D. Sit to stand 04-Supervision or touching assistance E. Chair/ieh-jf-nrfog transfer 04-Supervision or touching assistance F. Toilet transfer 04-Supervision or touching assistance G. Car transfer 10-Not attempted due to environmental limitations I. Walk 10 feet 04-Supervision or touching assistance J. Walk 50 feet with two turns 04-Supervision or touching assistance K. Walk 150 feet 88-Not attempted due to medical condition or safety concerns L. Walking 10 feet on uneven surfaces 88-Not attempted due to medical condition or safety concerns M. 1 step (curb) 88-Not attempted due to medical condition or safety concerns N. 4 steps 88-Not attempted due to medical condition or safety concerns O. 12 steps 88-Not attempted due to medical condition or safety concerns P. Picking up object 88-Not attempted due to medical condition or safety concerns - Bladder and Bowel Bladder continence 0-Always continent Bowel continence 0-Always continent - Endurance Poor - Balance Poor - Safety Awareness Poor CURRENT FUNC. DEFICITS: Self-Care, Mobility, Endurance, Balance, and Safety Awareness SIGNATURE PANEL: (CDT)
[2019-08-07] MEDS: ATORVASTATIN 40 MG TAB PO SCH (20:21)
[2019-08-07] MEDS: ACETAMINOPHEN 500 MG TAB PO PRN (20:21)
[2019-08-08 06:12] LABS: Absolute Lymphocytes (CBC) 0.9 K/uL (0.7-4.9); Basophils % 0.9 % (0-1.3); Hematocrit 35.7 % (36.0-45.0); Lymphocytes % 13.4 % (15.3-44.8); MPV 8.1 fL (7.6-11.3); RBC Red Blood Cell Count 4.05 M/uL (3.86-4.86)
[2019-08-08 06:24] LABS: Albumin 3.2 g/dL (3.4-5.0); BUN Blood Urea Nitrogen 10 mg/dL (7-18); Bicarbonate 26 mmol/L (21-32); Glucose Level 171 mg/dL (74-106); Potassium 3.7 mmol/L (3.5-5.1); Prealbumin 17.7 mg/dL (20-40); Sodium Level 144 mmol/L (136-145)
[2019-08-08] MEDS: INSULIN -REGULAR HUMAN 50 UNIT/0.5 ML ML SQ SCH ×4 (07:30→20:29)
[2019-08-08] MEDS: NYSTATIN PWDR 100000 UNIT/GM TOP SCH ×2 (08:00→20:28)
[2019-08-08] MEDS: SODIUM CHLORIDE 0.9% 10ML INJ IV SCH ×2 (08:00→20:00)
[2019-08-08] MEDS: METFORMIN HCL 500 MG TAB PO SCH ×2 (08:14→16:48)
[2019-08-08] MEDS: ASPIRIN EC 81 MG TAB PO SCH (08:14)
[2019-08-08] MEDS: LOSARTAN POTASSIUM 50 MG TABLET PO SCH ×2 (08:14→20:28)
[2019-08-08] MEDS: AMLODIPINE 10 MG TAB PO SCH (08:14)
[2019-08-08] MEDS: APIXABAN 2.5 MG TABLET PO SCH ×2 (08:14→20:28)
--- NOTE | 2019-08-08 11:47 | FAST ---
SHIFT START DATE/TIME: 08/08/2019 07:00 (CDT) SHIFT END DATE/TIME: 08/08/2019 19:00 (CDT) NAME ANGE CUBA DATE OF : 1960 DATE OF ADMISSION: 07/31/2019 16:29 (CDT) PHONE: AGE: 59 N# [id number] GENDER: Female ENCOUNTER PHYSICIAN: Dr. Kodak Mcelroy M.D. 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 . EATING: EATING - STEP 1: Does the patient complete the activity by him/herself with no assistance (physical, verbal/nonverbal cueing, setup/clean-up)? No. EATING - STEP 2: Does the patient need only setup/clean-up assistance from one helper? Yes. 1. [id number] ADMISSION PERFORMANCE: Setup or clean-up assistance CODE: 05 ORAL HYGIENE: ORAL HYGIENE - STEP 1: Does the patient complete the activity by him/herself with no assistance (physical, verbal/nonverbal cueing, setup/clean-up)? No. ORAL HYGIENE - STEP 2: Does the patient need only setup/clean-up assistance from one helper? Yes. 1. [id number] ADMISSION PERFORMANCE: Setup or clean-up assistance CODE: 05 TOILETING HYGIENE: TOILETING HYGIENE - STEP 1: Does the patient complete the activity by him/herself with no assistance (physical, verbal/nonverbal cueing, setup/clean-up)? No. TOILETING HYGIENE - STEP 2: Does the patient need only setup/clean-up assistance from one helper? Yes. 1. [id number] ADMISSION PERFORMANCE: Setup or clean-up assistance CODE: 05 BATHING: Not assessed/no information CODE: - DRESSING - UPPER BODY: Not assessed/no information CODE: - DRESSING - LOWER BODY: Not assessed/no information CODE: - PUTTING ON/TAKING OFF FOOTWEAR: Not assessed/no information CODE: - ROLL LEFT AND RIGHT: Not assessed/no information CODE: - SIT TO LYING: SIT TO LYING - STEP 1: Does the patient complete the activity by him/herself with no assistance (physical, verbal/nonverbal cueing, setup/clean-up)? No. SIT TO LYING - STEP 2: Does the patient need only setup/clean-up assistance from one helper? Yes. 1. [id number] ADMISSION PERFORMANCE: Setup or clean-up assistance CODE: 05 LYING TO SITTING: LYING TO SITTING ON SIDE OF BED - STEP 1: Does the patient complete the activity by him/herself with no assistance (physical, verbal/nonverbal cueing, setup/clean-up)? No. LYING TO SITTING ON SIDE OF BED - STEP 2: Does the patient need only setup/clean-up assistance from one helper? Yes. 1. [id number] ADMISSION PERFORMANCE: Setup or clean-up assistance CODE: 05 SIT TO STAND: SIT TO STAND - STEP 1: Does the patient complete the activity by him/herself with no assistance (physical, verbal/nonverbal cueing, setup/clean-up)? No. SIT TO STAND - STEP 2: Does the patient need only setup/clean-up assistance from one helper? Yes. 1. [id number] ADMISSION PERFORMANCE: Setup or clean-up assistance CODE: 05 TRANSFERS: BED, CHAIR: CHAIR/[id number] TRANSFER - STEP 1: Does the patient complete the activity by him/herself with no assistance (physical, verbal/nonverbal cueing, setup/clean-up)? No. CHAIR/[id number] TRANSFER - STEP 2: Does the patient need only setup/clean-up assistance from one helper? Yes. 1. [id number] ADMISSION PERFORMANCE: Setup or clean-up assistance CODE: 05 TRANSFER TOILET: TOILET TRANSFER - STEP 1: Does the patient complete the activity by him/herself with no assistance (physical, verbal/nonverbal cueing, setup/clean-up)? No. TOILET TRANSFER - STEP 2: Does the patient need only setup/clean-up assistance from one helper? No. TOILET TRANSFER - STEP 3: Does the patient need only verbal/nonverbal cueing or touching/steadying/contact guard assistance fro m one helper? Yes. 1. [id number] ADMISSION PERFORMANCE: Supervision or touching assistance CODE: 04 TRANSFERS: CAR: Not assessed/no information CODE: - WALK 10 FEET: Not assessed/no information CODE: - 1 STEP (CURB): Not assessed/no information CODE: - PICKING UP OBJECT: Not assessed/no information CODE: - DOES THE PATIENT USE A WHEELCHAIR/SCOOTER? CODE: EXPR WHEEL 50 FEET WITH TWO TURNS: Not assessed/no information CODE: - INDICATE THE TYPE OF WHEELCHAIR/SCOOTER USED: CODE: EXPR WHEEL 150 FEET: Not assessed/no information CODE: - INDICATE THE TYPE OF WHEELCHAIR/SCOOTER USED: CODE: EXPR BLADDER AND BOWEL: H350. BLADDER CONTINENCE (3-DAY ASSESSMENT PERIOD): Always continent (no documented incontinence) CODE: 0 H400. BOWEL CONTINENCE (3-DAY ASSESSMENT PERIOD): Always continent CODE: 0 SIGNATURE PANEL: The following modified sections: 1. [id number] Admission Performance, 1. [id number] Admission Performance, 1. [id number] Admission Performance, 1. [id number] Admission Performance, 1. [id number] Admission Performance, 1. [id number] Admission Performance, 1. [id number] Admission Performance, 1. [id number] Admission Performance , 1. [id number] Admission Performance, Code, H350. Bladder Continence (3-day assessment period), H400. B owel Continence (3-day assessment period) were [electronically] signed by Alber Mcarthur on MonAug 07 11:46:06 GMT-0500 (Central Daylight Time)
--- NOTE | 2019-08-08 17:24 | R.PN ---
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 SUBJECTIVE: Pt denied any Shortness of Breath. Pt denied any depression. Labs reviewed. WBC 7.0, Hgb 12.0, Plt 341, prealbumin 17.7, Glucose 136 to 178. UA shows bacteria 20 to 50. Ambulated independently without an assistive device. Up and down 50 steps independently. VITAL SIGNS Temperature: 97.6 F SBP/DBP: 148/74 Pulse: 84 Resp: 16 MEDICATION ALLERGIES: No Known Drug Allergies (NKDA) ENVIRONMENTAL ALLERGIES: None Known - Substance Allergies None Known - Other Allergies None Known NURSING: - Shower allowing shower - Bladder care per protocol - Skin care per protocol PRECAUTIONS: - Weight Bearing Precaution WBAT right LE and UE ACTIVITIES OOB only with supervision THERAPIES: - Occupational Therapy Cognitive Retraining. Visual Perceptual Training. - Dietary and Nutrition Adequate Nutrition. Nutritional Education. Nutritional Supplements. - Speech Therapy Cognitive Training. Expressive Language Skills. Memory Strategies. Receptive Language Skills. Speech Intelligibility Training. PHYSICAL EXAM - Gen Alert and awake Lying in bed No apparent distress Oriented to: person, time, and place - Skin No skin breakdown. - Eyes Left eye blindness. - ENMT No abnormalities - Neck No abnormalities - CVS RRR - Chest No abnormalities - Abd Soft - GI Non distended Deferred - No abnormalities - Ext No significant edema - MSK 4+/5 weakness in right upper and lower extremity - Neuro Right face, arm and leg numbness and mild weakness. - Psych Mild anxiety. ASSESSMENT: Pt. is a 59 yo Right-handed white female.On 07/29/2019 Pt. presented to [facility] with sudd en onset of right-side weakness.On 07/29/2019 she was admitted to [facility] with diagnosis 8 mm nonhemorrhagic subacute infarct suspected left basal ganglia. .Her impairment category is Stroke 01 - Right Body (Left Brain) (01.2).Pre-morbidly, Pt. was independent/mod-I in Transfers Control, L ocomotion, and Self-Care; and she had good Balance, Safety Awareness, Social Cognition, and Communica tion.Currently, she has deficits of Transfers Control, Locomotion, Safety Awareness, Balance, Self-Ca re, Social Cognition, and Communication.Pt. is now referred to [facility] for acute in-patient rehabilitation in order to maximize patient's functional independence in activities of daily living, strength, ROM, and mobility.- Rehab Goal Patient has realistic goal of being discharged at assistance level 6-Soledad to reside at Home with Fam belkis/Relatives. MDM/PLAN: - Physical Therapy Gait dysfunction - to improve, our physical therapists will perform initial evaluation of pt's statu s upon admission and devise an individualized program for Gait Training, and Wheel Chair mobility Inability to transfer - to improve, our physical therapists will perform initial evaluation of pt's status upon admission and devise an individualized program for Bed mobility Need for home safety evaluation - to improve, our physical therapists will perform initial evaluatio n of pt's status upon admission and devise an individualized program for Home Evaluation Need in caregiver upon discharge - to improve, our physical therapists will perform initial evaluati on of pt's status upon admission and devise an individualized program for Caregiver Training Edema - to improve, our physical therapists will perform initial evaluation of pt's status upon admi ssion and devise an individualized program for Elevation Training, and Lymphedema Therapy New precaution - to improve, our physical therapists will perform initial evaluation of pt's status upon admission and devise an individualized program for Patient precaution education Poor balance - to improve, our physical therapists will perform initial evaluation of pt's status up on admission and devise an individualized program for Balance Training Weakness - to improve, our physical therapists will perform initial evaluation of pt's status upon a dmission and devise an individualized program for Aquatic Therapy, Neuromuscular Reeducation, and Str engthening Achieving independence - to improve, our physical therapists will perform initial evaluation of pt's status upon admission and devise an individualized program for Community Reintegration Activities - Occupational Therapy ADL deficits - to improve, our occupation therapists will perform initial evaluation of pt's status upon admission and devise an individualized program for Bathing, Bed mobility, Community Reintegratio n, Cooking, Dressing, Eating, Fine Motor Skills, Grooming, Homemaking, Kitchen Mobility, Laundry, Pat ient Education, Safety Awareness, Splinting - Positioning, Transfers(Toilet, Tub, Shower), and Wheel Chair Management Cognitive deficits - to improve, our occupation therapists will perform initial evaluation of pt's s tatus upon admission and devise an individualized program for Cognition - orientation Need for clinical care leader - to improve, our occupation therapists will perform initial evaluation of pt's status upon admission and devise an individualized program for Caregiver Training Weakness - to improve, our occupation therapists will perform initial evaluation of pt's status upon admission and devise an individualized program for Aquatic Therapy, Balance, Endurance, UE ROM, and UE strengthening - Other See attached MAR (Medication Administration Record) - Diet Type Continue Regular - Diet - Liquid Texture Continue Regular - Tube Feed Continue N/A - Bladder care per protocol - Weight Bearing Precaution WBAT right LE and UE - Skin care per protocol - Diet - Solid Texture Continue Regular - Shower allowing shower for Dementia, TBI, Stroke, or others FUNCTIONAL STATUS: UPDATED AT WEEKLY TEAM CONFERENCE - Walking Same score based on distance walked: 3(>=150ft) FUNCTIONAL STATUS: - Self-Care A. Eating Soledad B. Grooming Soledad C. Bathing Jaylene D. Dressing - Upper sup E. Dressing - Lower Jaylene F. Toileting sup - Sphincter Control G. Bladder control sup H. Bowel control sup - Transfers Control I. Bed/Chair/Wheelchair Jaylene J. Toilet Jaylene K. Tub/Shower modA - Locomotion L. Walk/Wheelchair (B) Jaylene M. Stairs modA - Communication N. Comprehension (B) Soledad O. Expression (B) Soledad - Social Cognition P. Social Interaction Soledad Q. Problem Solving Soledad R. Memory Soledad - Endurance Fair - Balance Fair - Safety Awareness Fair QI SCORES: - Self-Care A. Eating 04-Supervision or touching assistance B. Oral hygiene 04-Supervision or touching assistance C. Toileting hygiene 03-Partial/moderate assistance E. Shower/bathe self 10-Not attempted due to environmental limitations F. Upper body dressing 03-Partial/moderate assistance G. Lower body dressing 02-Substantial/maximal assistance H. Putting on/taking off footwear 02-Substantial/maximal assistance - Mobility A. Roll left and right 04-Supervision or touching assistance B. Sit to lying 04-Supervision or touching assistance C. Lying to sitting on side of bed 04-Supervision or touching assistance D. Sit to stand 04-Supervision or touching assistance E. Chair/[id number]-[id number] transfer 04-Supervision or touching assistance F. Toilet transfer 04-Supervision or touching assistance G. Car transfer 10-Not attempted due to environmental limitations I. Walk 10 feet 04-Supervision or touching assistance J. Walk 50 feet with two turns 04-Supervision or touching assistance K. Walk 150 feet 88-Not attempted due to medical condition or safety concerns L. Walking 10 feet on uneven surfaces 88-Not attempted due to medical condition or safety concerns M. 1 step (curb) 88-Not attempted due to medical condition or safety concerns N. 4 steps 88-Not attempted due to medical condition or safety concerns O. 12 steps 88-Not attempted due to medical condition or safety concerns P. Picking up object 88-Not attempted due to medical condition or safety concerns - Bladder and Bowel Bladder continence 0-Always continent Bowel continence 0-Always continent - Endurance Poor - Balance Poor - Safety Awareness Poor CURRENT FUNC. DEFICITS: Self-Care, Mobility, Endurance, Balance, and Safety Awareness SIGNATURE PANEL: (CDT)
[2019-08-08] MEDS: ATORVASTATIN 40 MG TAB PO SCH (20:28)
[2019-08-08] MEDS: ACETAMINOPHEN 500 MG TAB PO PRN (20:28)
[2019-08-09] MEDS: INSULIN -REGULAR HUMAN 50 UNIT/0.5 ML ML SQ SCH ×2 (07:00→11:30)
[2019-08-09 07:29] VITALS: BP 152/76; TEMP 98.2
[2019-08-09] MEDS: LOSARTAN POTASSIUM 50 MG TABLET PO SCH (07:59)
[2019-08-09] MEDS: METFORMIN HCL 500 MG TAB PO SCH (07:59)
[2019-08-09] MEDS: AMLODIPINE 10 MG TAB PO SCH (08:00)
[2019-08-09] MEDS: APIXABAN 2.5 MG TABLET PO SCH (08:00)
[2019-08-09] MEDS: ASPIRIN EC 81 MG TAB PO SCH (08:00)
[2019-08-09] MEDS: SODIUM CHLORIDE 0.9% 10ML INJ IV SCH (08:00)
--- NOTE | 2019-08-09 10:06 | P.RH.PN ---
Estimated Length of Stay: 10 Expected Discharge Date: 08/09/19 Discharge Disposition Plan: Home Family Support: Yes Halfway Goal: Mobility, Transfers, Self Care Vital Signs: Last Vital Signs Temp 98.2 F 08/09/19 07:28 Pulse 84 08/09/19 08:00 Resp 16 08/09/19 07:28 BP 152/76 H 08/09/19 08:00 Pulse Ox 98 08/09/19 07:28 Laboratory: Laboratory Last Values WBC 7.0 K/uL (4.3-10.9) D 08/08/19 05:53 RBC 4.05 M/uL (3.86-4.86) 08/08/19 05:53 Hgb 12.0 g/dL (12.0-15.0) 08/08/19 05:53 Hct 35.7 % (36.0-45.0) L 08/08/19 05:53 MCV 88.1 fL (80-100) 08/08/19 05:53 MCH 29.7 pg (27.0-35.0) 08/08/19 05:53 MCHC 33.7 g/dL (32.0-36.0) 08/08/19 05:53 RDW 12.7 % (12.1-15.2) 08/08/19 05:53 Plt Count 341 K/uL (152-406) D 08/08/19 05:53 MPV 8.1 fL (7.6-11.3) 08/08/19 05:53 Neutrophils % 80.7 % (41.7-73.7) H 08/08/19 05:53 Lymphocytes % 13.4 % (15.3-44.8) L 08/08/19 05:53 Monocytes % 4.7 % (3.3-12.3) 08/08/19 05:53 Eosinophils % 0.3 % (0-4.4) 08/08/19 05:53 Basophils % 0.9 % (0-1.3) 08/08/19 05:53 Absolute Neutrophils 5.7 K/uL (1.8-8.0) 08/08/19 05:53 Absolute Lymphocytes 0.9 K/uL (0.7-4.9) 08/08/19 05:53 Absolute Monocytes 0.3 K/uL (0.1-1.3) 08/08/19 05:53 Absolute Eosinophils 0.0 K/uL (0-0.5) 08/08/19 05:53 Absolute Basophils 0.1 K/uL (0-0.5) 08/08/19 05:53 Sodium 144 mmol/L (136-145) 08/08/19 05:53 Potassium 3.7 mmol/L (3.5-5.1) 08/08/19 05:53 Chloride 112 mmol/L (98-107) H 08/08/19 05:53 Carbon Dioxide 26 mmol/L (21-32) 08/08/19 05:53 BUN 10 mg/dL (7-18) 08/08/19 05:53 Creatinine 0.59 mg/dL (0.55-1.3) 08/08/19 05:53 Estimated GFR > 90 mL/min (=/>90) 08/08/19 05:53 Glucose 171 mg/dL (74-106) H 08/08/19 05:53 POC Glucose 187 mg/dl (65-120) H 08/09/19 06:46 Calcium 9.1 mg/dL (8.5-10.1) 08/08/19 05:53 Magnesium 2.2 mg/dL (1.8-2.4) 08/01/19 05:33 Albumin 3.2 g/dL (3.4-5.0) L 08/08/19 05:53 Prealbumin 17.7 mg/dL (20-40) L 08/08/19 05:53 Urine Color Yellow 07/31/19 15:05 Urine Appearance Cloudy 07/31/19 15:05 Urine pH 6.5 (5.0-7.0) 07/31/19 15:05 Ur Specific [place] 1.020 (1.005-1.030) 07/31/19 15:05 Glucose (UA)(Auto) 2+ (NEG) H 07/31/19 15:05 Urine Ketones Negative (NEG) 07/31/19 15:05 Urine Blood Negative (NEG) 07/31/19 15:05 Urine Nitrite Negative (NEG) 07/31/19 15:05 Urine Bilirubin Negative (NEG) 07/31/19 15:05 Urine Urobilinogen 1.0 mg/dL (0.2-1.0) 07/31/19 15:05 Ur Leukocyte Esterase Negative (NEG) 07/31/19 15:05 Urine RBC <5 /HPF (NONE SEEN) 07/31/19 15:05 Urine WBC <5 /HPF (<5) 07/31/19 15:05 Ur Squamous Epith Cells <5 /HPF (NONE SEEN) 07/31/19 15:05 Urine Bacteria 20-50 /HPF (<20) H 07/31/19 15:05 Urine Mucus 1+ /HPF (NONE SEEN) 07/31/19 15:05 Urine Culture Reflexed Not needed 07/31/19 15:05 Urine Total Protein Negative (NEG) 07/31/19 15:05 Weight: 227 lb 9.6 oz Wound Present: No Closed Surgical Incision Present: No Negative Pressure Wound Therapy Present: No Physician Update: Labs were reviewed and are stable. She is doing very well and is independent with all therapy. She will start chemotherapy next week with Dr. England. Speech Therapy Update: Minimal Cognitive impairment; patient is considered MOD I with memory and Problem solving. Goals Met Summary: Patient's care plan and snf goals have been reviewed and revised as necessary. Please see the Rehabilitation Signature page for all necessary signatures.
--- NOTE | 2019-08-09 12:21 | FAST ---
ENCOUNTER DATE AND TIME: 08/09/2019 08:00 (CDT) NAME ANGE CUBA DATE OF : 1960 DATE OF ADMISSION: 07/31/2019 16:29 (CDT) PHONE: AGE: 59 N# [id number] GENDER: Female ENCOUNTER PHYSICIAN: Dr. Kodak Mcelroy M.D. 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 . EATING: Not assessed/no information CODE: - ORAL HYGIENE: ORAL HYGIENE - STEP 1: Does the patient complete the activity by him/herself with no assistance (physical, verbal/nonverbal cueing, setup/clean-up)? Yes. 1. [id number] ADMISSION PERFORMANCE: Independent CODE: 06 TOILETING HYGIENE: Not assessed/no information CODE: - BATHING: SHOWER/BATHE SELF - STEP 1: Does the patient complete the activity by him/herself with no assistance (physical, verbal/nonverbal cueing, setup/clean-up)? Yes. 1. [id number] ADMISSION PERFORMANCE: Independent CODE: 06 DRESSING - UPPER BODY: DRESSING - UPPER BODY - STEP 1: Does the patient complete the activity by him/herself with no assistance (physical, verbal/nonverbal cueing, setup/clean-up)? Yes. 1. [id number] ADMISSION PERFORMANCE: Independent CODE: 06 DRESSING - LOWER BODY: DRESSING - LOWER BODY - STEP 1: Does the patient complete the activity by him/herself with no assistance (physical, verbal/nonverbal cueing, setup/clean-up)? Yes. 1. [id number] ADMISSION PERFORMANCE: Independent CODE: 06 PUTTING ON/TAKING OFF FOOTWEAR: FOOTWEAR - STEP 1: Does the patient complete the activity by him/herself with no assistance (physical, verbal/nonverbal cueing, setup/clean-up)? Yes. 1. [id number] ADMISSION PERFORMANCE: Independent CODE: 06 DOES THE PATIENT USE A WHEELCHAIR/SCOOTER? CODE: EXPR INDICATE THE TYPE OF WHEELCHAIR/SCOOTER USED: CODE: EXPR INDICATE THE TYPE OF WHEELCHAIR/SCOOTER USED: CODE: EXPR BLADDER AND BOWEL: CODE: EXPR CODE: EXPR SIGNATURE PANEL: The following modified sections: 1. [id number] Admission Performance, 1. [id number] Admission Performance, 1. [id number] Admission Performance, 1. [id number] Admission Performance, 1. [id number] Admission Performance were [electronically] signed by GISSELL Booth on MonAug 09 2019 12:20:08 GMT-0500 (Central Daylight Time)
--- NOTE | 2019-08-09 17:28 | R.DS ---
FACILITY [facility] MR# [id number] NAME ANGE CUBA ADDRESS [address] [place] [address] [address]IP [id number] PHONE DATE OF 1960 AGE 59 SSN# [id number] GENDER Female DEXTERITY Right-handed MARITAL STATUS RACE White ENCOUNTER PHYSICIAN Dr. Kodak Mcelroy M.D. REFERRING DOCTOR Dr. Palacios REFERRING FACILITY [facility] DISCHARGE DIAGNOSIS: - Stroke 01 - Right Body (Left Brain) (01.2) 8 mm nonhemorrhagic subacute infarct suspected left basal ganglia. . DATE OF ADMISSION 07/31/2019 16:29 (CDT) MEDICATION ALLERGIES: No Known Drug Allergies (NKDA) ENVIRONMENTAL ALLERGIES: None Known - Substance Allergies None Known - Other Allergies None Known DISCHARGE MEDICATIONS: Other- ContinueSee attached MAR (Medication Administration Record). NURSING: - Shower allowing shower - Bladder care per protocol - Skin care per protocol PRECAUTIONS: - Weight Bearing Precaution WBAT right LE and UE ACTIVITIES OOB only with supervision THERAPIES: - Occupational Therapy Cognitive Retraining Visual Perceptual Training - Dietary and Nutrition Adequate Nutrition Nutritional Education Nutritional Supplements - Speech Therapy Cognitive Training Expressive Language Skills Memory Strategies Receptive Language Skills Speech Intelligibility Training HISTORY OF PRESENT ILLNESS: Pt. is a 59 yo Right-handed white female.On 07/29/2019 Pt. presented to [facility] with sudd en onset of right-side weakness.On 07/29/2019 she was admitted to [facility] with diagnosis 8 mm nonhemorrhagic subacute infarct suspected left basal ganglia. .Her impairment category is Stroke 01 - Right Body (Left Brain) (01.2).Pre-morbidly, Pt. was independent/mod-I in Transfers Control, L ocomotion, and Self-Care; and she had good Balance, Safety Awareness, Social Cognition, and Communica tion.Currently, she has deficits of Transfers Control, Locomotion, Safety Awareness, Balance, Self-Ca re, Social Cognition, and Communication.Pt. is now referred to [facility] for acute in-patient rehabilitation in order to maximize patient's functional independence in activities of daily living, strength, ROM, and mobility.- Rehab Goal Patient has realistic goal of being discharged at assistance level 6-Soledad to reside at Home with Fam belkis/Relatives. HOSPITAL COURSE: DIET - LIQUID TEXTURE: On 07/30/2019 Pt was upgraded to Regular Diet - Liquid Texture. DIET - SOLID TEXTURE: On 07/30/2019 Pt was upgraded to Regular Diet - Solid Texture. DIET TYPE: On 07/30/2019 Pt was upgraded to Regular Diet Type. TUBE FEED: On 07/30/2019 Pt was changed to N/A Tube Feed. WEIGHT BEARING PRECAUTION: On 07/31/2019 the following precautions were added for the patient: Weight Bearing Precaution - WBAT right LE and UE, and Weight Bearing Precaution - WBAT right LE and UE. On 08/01/2019 the following precautions were removed for the patient: Weight Bearing Precaution - WB AT right LE and UE. On 08/05/2019 the following precautions were added for the patient: Weight Bearing Precaution - WBAT right LE and UE. DISCHARGE PHYSICAL EXAM - Gen Alert and awake Lying in bed No apparent distress Oriented to: person, time, and place - Skin No skin breakdown. - Eyes Left eye blindness. - ENMT No abnormalities - Neck No abnormalities - CVS RRR - Chest No abnormalities - Abd Soft - GI Non distended Deferred - No abnormalities - Ext No significant edema - MSK 4+/5 weakness in right upper and lower extremity - Neuro Right face, arm and leg numbness and mild weakness. - Psych Mild anxiety. FUNCTIONAL STATUS: - Self-Care A. Eating 7-Ind B. Grooming 7-Ind C. Bathing 7-Ind D. Dressing - Upper 7-Ind E. Dressing - Lower 7-Ind F. Toileting 7-Ind - Sphincter Control G. Bladder control 7-Ind H. Bowel control 7-Ind - Transfers Control I. Bed/Chair/Wheelchair 7-Ind J. Toilet 7-Ind K. Tub/Shower 7-Ind - Locomotion L. Walk/Wheelchair (B) 7-Ind M. Stairs 7-Ind - Communication N. Comprehension (B) 7-Ind O. Expression (B) 7-Ind - Social Cognition P. Social Interaction 7-Ind Q. Problem Solving 7-Ind R. Memory 7-Ind - Endurance Good - Balance Good - Safety Awareness Good QI SCORES: - Self-Care A. Eating 04-Supervision or touching assistance B. Oral hygiene 04-Supervision or touching assistance C. Toileting hygiene 03-Partial/moderate assistance E. Shower/bathe self 10-Not attempted due to environmental limitations F. Upper body dressing 03-Partial/moderate assistance G. Lower body dressing 02-Substantial/maximal assistance H. Putting on/taking off footwear 02-Substantial/maximal assistance - Mobility A. Roll left and right 04-Supervision or touching assistance B. Sit to lying 04-Supervision or touching assistance C. Lying to sitting on side of bed 04-Supervision or touching assistance D. Sit to stand 04-Supervision or touching assistance E. Chair/szu-bo-cmkqy transfer 04-Supervision or touching assistance F. Toilet transfer 04-Supervision or touching assistance G. Car transfer 10-Not attempted due to environmental limitations I. Walk 10 feet 04-Supervision or touching assistance J. Walk 50 feet with two turns 04-Supervision or touching assistance K. Walk 150 feet 88-Not attempted due to medical condition or safety concerns L. Walking 10 feet on uneven surfaces 88-Not attempted due to medical condition or safety concerns M. 1 step (curb) 88-Not attempted due to medical condition or safety concerns N. 4 steps 88-Not attempted due to medical condition or safety concerns O. 12 steps 88-Not attempted due to medical condition or safety concerns P. Picking up object 88-Not attempted due to medical condition or safety concerns - Bladder and Bowel Bladder continence 0-Always continent Bowel continence 0-Always continent - Endurance Poor - Balance Poor - Safety Awareness Poor DISCHARGE INSTRUCTIONS: - N/A Aspirin 81 mg daily. DISCHARGE PLAN, FOLLOW UP CARE PROVISIONS: - Estimated Length of Stay (days) 17. - Consensus on plan Discharge plan has been discussed with primary caregiver. Patient/Family is in agreement with the dawn n. Primary caregiver is in agreement with the plan. - Patient/Family Goals Return home independently. - Planned Living Setting Upon Discharge Home, to live with Family/Relatives. SIGNATURE PANEL: (CDT)
== END 2019-08-09 15:25 | disposition home or self-care (01) | DRG 65 ==
LOC: 5TH 13:11
PROVIDERS: ADMIT Psychiatry & Neurology Neurology with Special Qualifications in Child Neurology; ATTEND Psychiatry & Neurology Neurology with Special Qualifications in Child Neurology
DX: I63.59 Cerebral infarction due to unspecified occlusion or stenosis of other cerebral artery (principal); G81.91 Hemiplegia, unspecified affecting right dominant side; E11.9 Type 2 diabetes mellitus without complications; I10 Essential (primary) hypertension; F41.9 Anxiety disorder, unspecified; F03.90 Unspecified dementia, unspecified severity, without behavioral disturbance, psychotic disturbance, mood disturbance, and anxiety; Z85.3 Personal history of malignant neoplasm of breast; R20.0 Anesthesia of skin; Z90.710 Acquired absence of both cervix and uterus
CPT/HCPCS: 36415; 80048; 81001; 82040; 82947; 83735; 84134; 85025; 87086; 87088; 92507; 92523; 97110; 97112; 97116; 97162; 97530; J1642

== ENCOUNTER 2020-01-29 07:06 | Inpatient (IN) | payer OTHER ==
[2020-01-16 14:34] LABS: Absolute Lymphocytes (CBC) 1.2 K/uL (0.7-4.9); Basophils % 0.6 % (0-1.3); Lymphocytes % 9.7 % (15.3-44.8); MPV 7.7 fL (7.6-11.3); RBC Red Blood Cell Count 3.94 M/uL (3.86-4.86)
[2020-01-16 14:45] LABS: Potassium 3.8 mmol/L (3.5-5.1)
[2020-01-16 15:02] LABS: Protime INR 1.02
--- NOTE | 2020-01-16 15:47 | RAD REPORT ---
EXAM DESCRIPTION: Ellen Biggs And Lat (2 Views)01/16/2020 2:42 pm CLINICAL HISTORY: Breast cancer/preop for mastectomy COMPARISON: July 2019 FINDINGS: The lungs appear clear of acute infiltrate. The heart is normal size. Central venous cath eter with its tip in the superior vena cava IMPRESSION: No acute abnormalities displayed
[~2020-01-29 07:06] MED LIST: CEFAZOLIN/SWI 1gm 1 GM/10 ML SYR IVP SCH
[2020-01-29] MEDS ORDERED: NA CHLORIDE 0.9% 1,000 ML ONE ×2 (07:33→13:03)
[2020-01-29] MEDS ORDERED: MIDAZOLAM HCL 2 MG/2 ML INJ ONE (07:41)
[2020-01-29] MEDS ORDERED: ROCURONIUM 50 MG/5 ML VIAL IV ONE (07:41)
[2020-01-29] MEDS ORDERED: LIDOCAINE 1% MPF 5 ML VIAL ONE (07:41)
[2020-01-29] MEDS ORDERED: FENTANYL CITR 250 MCG/5 ML ONE ×2 (07:41→12:12)
[2020-01-29] MEDS ORDERED: propofoL 200 MG/20 ML VIAL IV ONE (07:41)
[2020-01-29] MEDS: CEFAZOLIN/SWI 1gm 1 GM/10 ML SYR ONE ×2 (08:28→08:30)
[2020-01-29] MEDS ORDERED: KETOROLAC 30 MG/ML INJ ONE ×2 (08:56→13:16)
[2020-01-29] MEDS ORDERED: ONDANSETRON 4 MG/2 ML VIAL ONE ×2 (08:56→13:26)
[2020-01-29] MEDS ORDERED: dexAMETHasone 4 MG/ML VIAL ONE (09:15)
[2020-01-29] MEDS: NA CHLORIDE 0.9% 1,000 ML ONE ×2 (10:40→10:51)
[2020-01-29] MEDS ORDERED: Phenylephrine HCl 10 MG/ML 1 ML VIAL ONE (10:50)
[2020-01-29] MEDS ORDERED: NS 0.9% VIAL 10 ML ONE (10:51)
--- NOTE | 2020-01-29 13:22 | P.OP ---
Preoperative diagnosis: LEFT Invasive Breast Cancer Postoperative diagnosis: LEFT Invasive Breast Cancer Primary procedure: LEFT Modified Radical Mastectomy Secondary procedure: RIGHT simple mastectomy Other procedure(s): Removal of Chemotherapy Port Anesthesia: GETA Estimated blood loss: ~50cc Specimen: Bilateral Breasts, LEFT axilla, Port Findings: Large palpable LNs, stuck to thoracodorsal bundle Complications: None Drain(s): SHANNAN drain (2 - 1.0cm flat SHANNAN drains) Transferred to: Recovery Room Condition: Good
[2020-01-29] MEDS ORDERED: ONDANSETRON 4 MG/2 ML VIAL IV PRN (13:26)
[2020-01-29] MEDS ORDERED: Mastisol Adhesive Liq ONE (13:26)
[2020-01-29 14:36] LABS: Absolute Lymphocytes (CBC) 0.9 K/uL (0.7-4.9); Basophils % 0.2 % (0-1.3); Hematocrit 30.9 % (36.0-45.0); Lymphocytes % 4.2 % (15.3-44.8); MPV 7.6 fL (7.6-11.3); RBC Red Blood Cell Count 3.43 M/uL (3.86-4.86)
--- NOTE | 2020-01-29 14:49 | OP ---
Date of Procedure: 01/29/2020 Surgeon: Omari Greer MD, Preoperative Diagnosis: Left invasive breast cancer. Postoperative Diagnosis: Left invasive breast cancer. Procedure Performed: 1.Left modified radical skin sparing mastectomy. 2.Right simple mastectomy. 3.Removal of chemotherapy port from right subclavian vein. Anesthesia: General endotracheal. Estimated Blood Loss: Approximately 50 cc. Findings: Large palpable lymph nodes in the left axillary, which were firmly adherent between the th oracodorsal bundle and the long thoracic nerve up to an almost abutting the axillary vein. Complications: None. Drains: Two 1 cm flat SHANNAN drains were placed in the prepectoral space. Disposition: The patient was transferred to recovery room in good condition. Procedure In Detail: After informed was obtained, the patient was brought to the operating room, pre pped and draped in the usual sterile fashion after adequate anesthesia achieved. Skin markings were performed to allow for delineation of the borders of the dissection extending superior to the clavicl e, inferior to the inframammary crease, medial to the sternal border and laterally to the latissimus. Bilateral markings were made on the breast and elliptical incisions were made over the left breast including the previous tumor site including this area with a slightly larger teardrop type incision. The 15 blade was used to dissect down through subcutaneous tissues. Electrocautery was used to diss ect both the superior and inferior flaps circumferentially. The breast tissue was taken down using e lectrocautery with good hemostasis. There was minimal blood loss throughout the procedure. Dissecti on continued down to the prepectoral fascia superiorly at the level of the inferior border of the cla vicle and then moving medially to the sternal border and inferiorly. The breast was mobilized to the left axilla. The dissection continued down into the axilla through the same said incision by enteri ng the clavipectoral fascia initially and dissecting superiorly towards along the medial border of th e pectoralis major and minor muscles. The lymph node packets were dissected bluntly to be included i n the specimen for the level 1 and 2 lymph node inclusion. Dissection continued to the inferior bord er of the axillary vein. Palpation of this area appreciated a large lymph node burden with several p alpable lymph nodes in the area. Dissection continued down to expose the thoracodorsal bundle and th e long thoracic nerve. These were visualized and protected throughout the procedure. However, these large lymph nodes had a somewhat desmoplastic reaction to the thoracodorsal bundle, particularly and slightly to the long thoracic nerve near the confluence of the thoracodorsal bundle and axillary vei n takeoff. Careful blunt dissection was performed here with minimal electrocautery. Clips were used to ligate superficial vasculature and branches off this, but the thoracodorsal bundle as well as the long thoracic nerve were protected throughout. Dissection continued down to remove the lymph nodes including the lymph node packet inferiorly down to the latissimus muscle. The patient had quite a si gnificant amount of adiposity in the area due to her body habitus, which made the dissection somewhat more timely. However, all important structures were protected throughout. The breast was then virgilio savana and sent off for pathologic examination with the axillary tail being ligated at this point, then moved to remove the remainder of the inferior aspect of the lymph node packet from the left axilla an d this was sent off for pathologic examination as well. These large palpable lymph nodes were eviden t in the specimen. I then irrigated the area copiously and brought in a 1 cm flat SHANNAN drain. Minimal hemostasis was needed at the prepectoral fascia along the pectoralis major muscle, which was easily controlled with electrocautery with minimal blood loss. The area was copiously irrigated multiple ti mes. All adipose tissue was cleared out from the area and the drain was placed along the pectoralis muscle with some inclusion of the axillary dissection. The drain was secured to the skin with a 3-0 nylon suture. Area was copiously irrigated once again and dried and the deep layers were closed usin g an interrupted 3-0 Vicryl suture and a 3-0 Monocryl was used to close the skin in a running fashion and a sterile dressing was placed over the top at this point. I then turned my attention to the rig ht breast and the breast being previously marked was used as a guide and the incision was made once a gain in a similar fashion. An elliptical type incision down through subcutaneous tissues with 15 galindo de. Dissection was continued down creating a superior flap initially followed by medial and inferior lateral flaps of the borders once again with the inferior border of the clavicle, the sternal border , the inframammary crease, and the latissimus on the lateral aspect. The breast was removed from the prepectoral fascia in a similar fashion, and the specimen was sent off for pathologic examination af ter ligating the axillary tail. At this point, the breast cavity was irrigated and hemostasis was ac hieved with electrocautery. There was minimal blood loss at this point. No additional hemostatic wa s required. I then brought an additional stab incision on the right lower chest wall and brought a 1 cm flat SHANNAN drain on the pectoralis major muscle and irrigated the area once again and suctioned unti l dry and closed the deep dermal layers with a 3-0 Vicryl suture and the skin was closed with a 4-0 M onocryl in a running fashion. Once again, additional sterile dressing was placed over the top. The patient then had a pressure dressing placed and sterile dressing placed over the top. The patient to lerated the procedure well without evidence of complication and transferred to PACU in good condition . All counts were correct at the end of the case. ARIANNA/CICI Voice ID: [id number] Report ID: [id number]
[2020-01-29 15:17] LABS: Blood Morphology Comment NOT SEEN (NOT SEEN); Platelet Estimate ADEQ
[2020-01-29] MEDS: Ringers Lactate 1,000 ML IV SCH ×2 (15:23→22:00)
[2020-01-29 15:25] VITALS: BMI 39.1
[2020-01-29] MEDS: INSULIN -REGULAR HUMAN 50 UNIT/0.5 ML ML SQ SCH ×2 (16:30→21:56)
[2020-01-29] MEDS: CEFAZOLIN/SWI 1gm 1 GM/10 ML SYR IVP SCH (17:20)
[2020-01-29] MEDS: HYDROCODONE/APAP 7.5/325 MG TAB PO PRN (22:05)
[2020-01-30] MEDS: CEFAZOLIN/SWI 1gm 1 GM/10 ML SYR IVP SCH ×4 (00:48→17:07)
[2020-01-30] MEDS: HYDROCODONE/APAP 7.5/325 MG TAB PO PRN (02:17)
[2020-01-30] MEDS: Ringers Lactate 1,000 ML IV SCH ×4 (02:19→22:00)
[2020-01-30] MEDS: HYDROMORPHONE HCL 1 MG/ML INJ IV PRN ×4 (05:08→20:20)
[2020-01-30 06:07] LABS: Absolute Lymphocytes (CBC) 1.1 K/uL (0.7-4.9); Basophils % 0.5 % (0-1.3); Hematocrit 28.8 % (36.0-45.0); Lymphocytes % 11.9 % (15.3-44.8); MPV 7.8 fL (7.6-11.3); RBC Red Blood Cell Count 3.22 M/uL (3.86-4.86)
[2020-01-30 06:23] LABS: Magnesium 1.6 mg/dL (1.8-2.4); Phosphorus 3.1 mg/dL (2.5-4.9); Potassium 3.4 mmol/L (3.5-5.1)
[2020-01-30] MEDS: INSULIN -REGULAR HUMAN 50 UNIT/0.5 ML ML SQ SCH ×4 (07:30→20:26)
[2020-01-30] MEDS: ENOXAPARIN 40 MG/0.4 ML SQ SCH (08:18)
[2020-01-30] MEDS ORDERED: MAGNESIUM SULFATE 1 gm IVPB 1 GM/100 ML BAG IV ONE (09:00)
[2020-01-30] MEDS ORDERED: POTASSIUM 25 MEQ EFFERV TAB PO ONE (09:00)
[2020-01-30] MEDS ORDERED: HYDRALAZINE HCL 20 MG/ML VIAL IV ONE (17:00)
--- OUTSIDE RECORDS SUMMARY | 2020-01-30 17:26 | XMS REPORT ---
:1960 Author Organization [employer] Care Team Providers Name Role Phone Anson Antoineen Provider Role Unavailable Allergies, Adverse Reactions, Alerts Substance Reaction Event Type N.K.D.A. Info Not Available Non Drug Allergy Problems Problem Type Condition Code Onset Dates Condition Statu s Problem Obesity (BMI 30-39.9) E66.9 Active Problem Nodule of finger of both hands R22.33 Active Problem Hyperglycemia R73.9 Active Problem Malignant neoplasm of left female C50.912 Active breast, unspecified estrogen receptor status, unspecified site of breast Assessment Stroke, acute, thrombotic I63.9 Ac tive Problem Left breast mass N63.20 Active Assessment Obesity (BMI 30-39.9) E66.9 Active Assessment Anxiety F41.9 Active Problem Skin lesion L98.9 Active Problem Stroke, acute, thrombotic I63.9 Ac tive Problem Neurological complaint R29.90 Activ e Problem Abnormal mammogram R92.8 Active Problem Anxiety F41.9 Active Assessment Uncontrolled type 2 diabetes E11.65 Active mellitus with hyperglycemia Assessment Essential hypertension I10 Activ e Assessment Malignant neoplasm of left female C50.912 Active breast, unspecified estrogen receptor status, unspecified site of breast Assessment Skin lesion L98.9 Active Problem Pain in left finger(s) M79.645 Activ e Problem Pain in right finger(s) M79.644 Acti ve Problem Breast pain, left N64.4 Active Problem Uncontrolled type 2 diabetes E11.65 Active mellitus with hyperglycemia Problem Essential hypertension I10 Activ e Medications Medication Code Code Instructions Start End Status Dosage System Date Date Amlodipine [facility] 47899407717 10 MG Orally Active 1 ta blet Besylate Once a day Lumigan [facility] 58197992413 0.01 % Active 1 drop into Ophthalmic Once affected a day eye in the evening Januvia [facility] 95721287341 50 MG Orally November 06, Active 1 tabl et Once a day for 2019 diabetes Glucose testing [facility] [id number] n/s June Active as d irected strips subcutaneous 2019 (dispense Test BS once testing daily strips formulary to insurance) Eliquis 2.5 mg [facility] 87982824601 2.5 mg Orally October e 1 tablet Twice daily 2019 Losartan [facility] 85484870693 100 MG Orally Active 1/2 t ablet Potassium Twice a day Combigan [facility] 60451794572 0.2-0.5 % Active 1 drop in to Ophthalmic once affected a day eye Blood Glucose ND 0 as directed June Active as di rected Monitor Test BS once 2019 (DISPENSE daily BLOOD GLUCOSE MONITOR FORMULARY TO INSURANCE) Metformin HCl [facility] 35668144354 1000 MG Orally Active 1/2 to 1 Twice a day for tablet w ith diabetes a meal Lancets [facility] 49550420707 - as directed June Active as dir ected Test BS once 2019 (dispense daily lancets formulary to insurance) BusPIRone HCl [facility] 62107325686 7.5 MG Orally Active 1 tablet as Twice a day needed for anxiety Atorvastatin [facility] 99234352238 40 MG Orally Active 1 tablet in Calcium Once a day evening Aspirin [facility] 96022582813 81 MG Orally Active (OTC) 1 Once daily tablet Symbicort [facility] 82961436476 160-4.5 MCG/ACT Active 1 puffs Inhalation Once a day Results Name Result Date Reference Range Unit Abnormali ty Flag HEMOGLOBIN A1C ----A1C 8.0% [id number] Summary Purpose [employer] Submission
--- OUTSIDE RECORDS SUMMARY | 2020-01-30 17:26 | XMS REPORT | Continuity of Care Document ---
:1960 Author Organization [facility] t Address [facility] [place] [address] Care Team Providers Name Role Phone Unavailable Unavailable Unavailable Problems Condition Condition Condition Status Onset Resolution Last Treating Co mments Source Name Details Category Date Date Treatment Clinician Date Essential Essential Problem Active [facility] hypertensi hypertensi Yamilet kes - [facility] Neurologic Neurologic Problem Active [facility] complaint complaint [facility]deus [facility]khi l [facility] Hyperglyce Hyperglyce Problem Active [facility] iv[facility] ivette [facility] Obesity Obesity Problem Active [facility] (BMI (BMI [facility] - 30-39.9) 30-39.9) [facility] Pain in Pain in Problem Active [facility] left left [facility] - finger(s) finger(s) [facility] Nodule of Nodule of Problem Active [facility] finger of finger of [facility] - both hands both hands Me moria l [facility] ent Clinics Breast Breast Problem Active [facility] pain, left pain, left Yamilet kes - [facility] Pain in Pain in Problem Active [facility] right right [facility] - finger(s) finger(s) [facility] Abnormal Abnormal Problem Active [facility] Left Left Problem Active [facility] breast breast [facility] - mass mass [facility] Uncontroll Uncontroll Problem Active [facility] ed type 2 ed type 2 [facility] - diabetes diabetes Memori a mellitus mellitus l with with Outpati hyperglyce hyperglyce en t ivette ivette Clinics Anxiety Anxiety Problem Active [facility] Stroke, Stroke, Problem Active [facility] acute, acute, [facility] - thrombotic thrombotic Me moria l [facility] ent Clinics Malignant Malignant Problem Active [facility] neoplasm neoplasm [facility] - of left of left Memoria female female l breast, breast, Outpati unspecifie unspecifie en t d estrogen d estrogen Cl inics receptor receptor status, status, unspecifie unspecifie d site of d site of breast breast Skin Skin Problem Active [facility] lesion lesion [facility] - Memoria l [facility] ent Clinics Allergies, Adverse Reactions, Alerts This patient has no known allergies or adverse reactions. Medications Ordered Filled Start Stop Current Ordering Indication Dosage Frequency Signature Comments Components Source Medication Medication Date Date Medication? Clinician (SIG) Name Name Glimepiride Glimepiride 2020-0 Yes Shelly [address] [facility] 9-01 [place] with [facility] - 00:00: breakfast Memoria 00 or the l first main [facility] meal of ent the day Clinics Januvia Januvia 2019-0 Yes Shelly [address] 7[facility]16 [facility] - 00:00: Memoria 00 [facility] ent [facility] Aspirin Aspirin 2019-0 Yes Shelly (OTC) [address] [facility] 4-22 [place] tablet [facility] - 00:00: Memoria [facility] ent Clinics BusPIRone BusPIRone 2019-0 Yes Shelly [address] [facility] HCl HCl 4-22 [place] as needed [facility] - 00:00: for Memoria 00 anxiety [facility] ent Clinics Atorvastati Atorvastati 2019-0 Yes Shelly [address] [facility] n Calcium n Calcium 4-22 [place] in evening [facility] - 00:00: Memoria 00 [facility] ent [facility] Blood Blood 2020-0 Yes Shelly as [facility] Glucose Glucose 3-18 [place] directed [facility] - Monitor Monitor 00:00: (DISPENSE Me moria 00 BLOOD l GLUCOSE Outpati MONITOR ent FORMULARY Clinics TO INSURANCE) Lancets Lancets 2020-0 Yes Shelly as [facility] 3[facility]18 [place] directed [facility] - 00:00: (dispense Memoria 00 lancets l formulary [facility] to ent insurance) Clinics Glucose Glucose 2020-0 Yes Shelly as [facility] testing testing 3-18 [place] directed [facility] - strips strips 00:00: (dispense Thaddeus mekhi 00 testing l strips Outpati formulary ent to Clinics insurance) Metformin Metformin 2019-0 Yes Shelly 1/[address] [facility] HCl HCl 3-18 [place] tablet [facility] - 00:00: with a Memoria 00 meal [facility] ent Clinics Losartan Losartan 2020-0 Yes Shelly 1/[address] [facility] Potassium Potassium 1-29 [place]ender [facility] - 00:00: Memoria 00 l Outpati ent Clinics Combigan Combigan Yes Shelly [address] [facility] [place] into [facility] - affected Memoria eye l Outpati ent Clinics Symbicort Symbicort Yes Shelly [address] [place] Lumigan Lumigan Yes Shelly [address] [facility] [place] into [facility] - affected Memoria eye in the l evening Outpati ent Clinics Amlodipine Amlodipine Yes Shelly [address] [facility] Besylate Besylate Millender Yamilet kes - [facility]pati ent Clinics Procedures This patient has no known procedures. Encounters Start End Encounter Admission Attending Care Care Encounter Source Date/Time Date/Time Type Type Clinicians Facility Department ID 2020-01-10 Outpatient [facility] MED [id number] BL 15:47:17 2019-12-04 2019-12-04 [facility] [id number] [facility] 08:52:00 08:52:00 [facility] Medicine Outpati ent Clinics 2019-11-07 2019-11-07 [facility] [id number] [facility] 15:00:00 15:00:00 [facility] Medicine Medicine Outpati ent Clinics 2019-08-20 2019-08-20 [facility] [id number] [facility] 08:12:00 08:12:00 [facility] Medicine Medicine Outpati ent Clinics 2019-08-14 2019-08-14 [facility] [id number] 11:00:00 11:00:00 [facility] Medicine Medicine Outpati ent Clinics 2019-07-08 2019-07-08 [facility] [id number] [facility] 13:11:00 13:11:00 [facility] Medicine Outpati ent Clinics 2019-07-08 2019-07-08 Outpatient [id number] [facility] 08:31:00 08:31:00 2019-05-22 2019-05-22 [facility] [id number] [facility] 21[facility]07:00 21:07:00 [facility] Medicine Outpati ent Clinics 2019-05-22 2019-05-22 [facility] [id number] [facility] 09[facility]30:00 09:30:00 [facility] Medicine Outpati ent Clinics 2019-05-20 2019-05-20 [facility] [id number] 08:57:00 08:57:00 [facility] Medicine Outpati ent Clinics 2019-05-16 2019-05-16 [facility] [id number] 14:55:00 14:55:00 [facility] Medicine Outpati ent Clinics 2019-05-07 2019-05-07 [facility] [id number] [facility] 15:15:00 15:15:00 [facility] Clinics Results This patient has no known results.
--- OUTSIDE RECORDS SUMMARY | 2020-01-30 17:26 | XMS REPORT ---
[...] estrogen receptor status, unspecified site of breast Problem Left breast mass N63.20 Active Problem Skin lesion L98.9 Active Problem Stroke, acute, thrombotic I63.9 Ac tive Problem Neurological complaint R29.90 Activ e Problem Abnormal mammogram R92.8 Active Problem Anxiety F41.9 Active Problem Pain in left finger(s) M79.645 Activ e Problem Pain in right finger(s) M79.644 Acti ve Problem Breast pain, left N64.4 Active Problem Uncontrolled type 2 diabetes E11.65 Active mellitus with hyperglycemia Problem Essential hypertension I10 Activ e Medications Medication Code Code Instructions Start End Status Dosage System Date Lumigan [facility] 62771805967 0.01 % Active 1 drop into Ophthalmic Once affected eye a day in the evening Combigan [facility] [id number] 0.2-0.5 % Active 1 drop in to Ophthalmic once affected eye a day Glucose testing [facility] [id number] n/s June Active as d irected strips subcutaneous 2019 (dispense Test BS once testing daily strips formulary to insurance) Losartan ND 45885333837 100 MG Orally Active 1/2 t ablet Potassium Twice a day BusPIRone HCl ND 26238343543 7.5 MG Orally Active 1 tablet as Twice a day needed for anxiety Blood Glucose ND 0 as directed June Active as di rected Monitor Test BS once 2019 (DISPENSE daily BLOOD GLUCOSE MONITOR FORMULARY TO INSURANCE) Symbicort ND 45607433846 160-4.5 MCG/ACT Active 1 puffs Inhalation Once a day Lancets [facility] [id number] - as directed June Active as dir ected Test BS once 2019 (dispense daily lancets formulary to insurance) Metformin HCl [facility] 87169039634 1000 MG Orally Active 1/2 to 1 Twice a day for tablet w ith diabetes a meal Amlodipine ND 62773417762 10 MG Orally Active 1 ta blet Besylate Once a day Januvia ND 15579899549 50 MG Orally November 06, Active 1 tabl et Once a day for 2019 diabetes Atorvastatin [facility] 49840026120 40 MG Orally Active 1 tablet in Calcium Once a day evening Aspirin [facility] 87329901666 81 MG Orally Active (OTC) 1 Once daily tablet Glimepiride ND 02716248046 2 MG Orally Dec 23, Active 1 t ablet Once a day 2019 with breakfast or the first main meal of the day Results No Known Results Summary Purpose eClinicalWorks Submission
[2020-01-30] MEDS ORDERED: AMLODIPINE 10 MG TAB PO SCH (21:00)
[2020-01-30] MEDS ORDERED: LOSARTAN POTASSIUM 50 MG TABLET PO SCH (21:00)
[2020-01-30] MEDS ORDERED: DOCUSATE NA/SENNA CONC 1 TAB PO PRN (22:14)
[2020-01-30] MEDS ORDERED: METOPROLOL TAR 25 MG TAB PO SCH (22:14)
--- NOTE | 2020-01-30 22:26 | P.CNS ---
Date of Consult: 01/30/20 Reason for Consult: Medical management Requesting Physician: Omari Greer Primary Care Provider: Dr. Palumbo; Oncology-Dr. England; Surgery-Dr. Greer Chief Complaint: Elevated blood pressure History of Present Illness: 59-year-old female with history of hypertension, diabetes mellitus type 2 non-insulin dependent, hyperlipidemia, and left invasive breast cancer who had surgery on 01/29/2020 for left modified radical mastectomy and right simple mastectomy along with removal of chemotherapy port. I was asked to see the patient for medical management and to address her hypertension and tachycardia. Patient takes losartan 50 mg 1 pill twice daily along with amlodipine 10 mg daily. This was held due to her surgery. Apparently this was started late today. Patient without headache, chest pain or shortness of breath. Blood pressure still elevated. Heart rate around 120. Patient currently stable at this time. Allergies No Known Allergies Allergy (Verified 01/16/20 14:05) Home medications list reviewed: Yes Home Medications: Budesonide/Formoterol Fumarate [Symbicort 160-4.5 Mcg Inhaler] 1 puff IH PRN PRN 07/04/19 Aspirin [Aspirin EC 81 MG] 162 mg PO DAILY #60 tablet. 07/31/19 Amlodipine [Norvasc*] 10 mg PO DAILY #30 tab 08/09/19 Atorvastatin Calcium [Lipitor] 40 mg PO BEDTIME #30 tab 08/09/19 Docusate/Senna [Senokot-S*] 2 tab PO BEDTIME PRN #60 tab 08/09/19 Losartan Potassium [Cozaar*] 50 mg PO BID #60 tablet 08/09/19 Metformin HCl [Metformin ER Osmotic] 1,000 mg PO BID 01/16/20 - Past Medical/Surgical History Diabetic: Yes -: Hypertension -: Diabetes mellitus type 2 mua-[id number]-[id number] -: COPD -: Breast cancer -: Obesity, BMI 39 -: Former tobacco use -: History of TIA -: Right Port-A-Cath -: Hysterectomy Psychosocial/ Personal History: Patient is - Family History Sister Medical History: Diabetes, Stroke Father Medical History: Cancer - Social History Smoking Status: Former smoker, Never smoker Alcohol use: No CD- Drugs: No Caffeine use: Yes Place of Residence: Home Review of Systems General: As per HPI Eyes: Unremarkable ENT: Unremarkable Respiratory: Unremarkable Cardiovascular: Unremarkable Gastrointestinal: Unremarkable Genitourinary: Unremarkable Musculoskeletal: As per HPI Integumentary: As per HPI Neurological: Unremarkable Lymphatics: Unremarkable Physical Examination Temp Pulse Resp BP Pulse Ox 98.8 F 121 H 19 186/80 H 94 01/30/20 20:00 01/30/20 20:21 01/30/20 20:50 01/30/20 20:21 01/30/20 20:50 General: Alert, In no apparent distress, Oriented x3, Cooperative HEENT: Atraumatic, Normocephalic, Mucous membr. moist/pink Neck: Supple Respiratory: Clear to auscultation bilaterally, Normal air movement Cardiovascular: Abnormal pulses (Sinus tachycardia) Gastrointestinal: Normal bowel sounds, No tenderness, No masses, No rebound, No guarding Musculoskeletal: Other (Postoperative changes noted to the breast regions. SHANNAN tubes in place.) Neurological: Normal speech, Normal strength at 5/5 x4 extr, Normal tone, Normal affect Laboratory Data (last 24 hrs) 01/30/20 05:48: WBC 8.9 D, Hgb 9.5 L, Hct 28.8 L, Plt Count 325 01/30/20 05:48: Sodium 143, Potassium 3.4 L, BUN 12, Creatinine 0.85, Glucose 144 H, Phosphorus 3.1, Magnesium 1.6 L D Conclusions/Impression: Impression: Left invasive breast cancer status post left modified radical mastectomy and right simple mastectomy with removal of chemotherapy port Hypertension uncontrolled Diabetes mellitus type 2 dua-zwwnnvk-yzzzsucfj Hyperlipidemia History of TIA Obesity, BMI 39.1 Former tobacco use Plan: Left invasive breast cancer status post left modified radical mastectomy and right simple mastectomy with removal of chemotherapy port: Patient status post surgery. SHANNAN tubes in place. Case discussed with surgery. Will need to get blood pressure better controlled. Will restart home medications including losartan and amlodipine. Will start metoprolol now to help with uncontrolled hypertension and tachycardia. Patient on DVT prophylaxis-Lovenox. Will restart metformin for her diabetes. Will restart statin medication for her hyperlipidemia. Will restart aspirin tomorrow if H&H stable. Will provide medication for pain. Will check a H&H at this time to maintain hemoglobin stability. Electrolyte protocol in place. I will turn the service over to the hospitalist team. Hospital service will continue medical management. Will discuss case further with surgery. Hypertension uncontrolled: Continue losartan 50 mg 1 pill twice daily and No rvasc 10 mg daily. Will start metoprolol 25 mg 1 pill twice daily now for better blood pressure control and due to tachycardia. Diabetes mellitus type 2 [id number]-exidxodfd: Patient on sliding scale and Accu-Cheks. Restart metformin. Hyperlipidemia: Restart statin medication History of TIA: Patient on DVT prophylaxis. May start aspirin tomorrow if H&H stable. Obesity, BMI 39.1: Will address lifestyle modification education. Former tobacco use: Patient has not smoked since June. Time Spent Managing Pts care (In Minutes): 55
[2020-01-30] MEDS: METOPROLOL TAR 25 MG TAB PO SCH (22:35)
[2020-01-30 23:38] LABS: Hematocrit 28.7 % (36.0-45.0)
[2020-01-31] MEDS: CEFAZOLIN/SWI 1gm 1 GM/10 ML SYR IVP SCH ×5 (00:05→23:30)
[2020-01-31] MEDS: HYDROCODONE/APAP 7.5/325 MG TAB PO PRN ×2 (00:05→20:45)
[2020-01-31] MEDS: HYDROMORPHONE HCL 1 MG/ML INJ IV PRN ×3 (02:59→23:29)
[2020-01-31] MEDS: METOPROLOL TAR 25 MG TAB PO SCH ×2 (05:17→17:42)
[2020-01-31] MEDS: Ringers Lactate 1,000 ML IV SCH ×3 (05:18→20:35)
[2020-01-31 05:54] LABS: Absolute Lymphocytes (CBC) 0.4 K/uL (0.7-4.9); Hematocrit 28.2 % (36.0-45.0); Lymphocytes % 4.4 % (15.3-44.8); MPV 7.8 fL (7.6-11.3); RBC Red Blood Cell Count 3.16 M/uL (3.86-4.86)
[2020-01-31 06:01] LABS: BUN Blood Urea Nitrogen 7 mg/dL (7-18); Bicarbonate 27 mmol/L (21-32); Glucose Level 146 mg/dL (74-106); Magnesium 1.7 mg/dL (1.8-2.4); Potassium 3.6 mmol/L (3.5-5.1); Sodium Level 139 mmol/L (136-145)
[2020-01-31] MEDS: INSULIN -REGULAR HUMAN 50 UNIT/0.5 ML ML SQ SCH ×4 (07:30→20:46)
[2020-01-31 07:42] LABS: Blood Morphology Comment NOT SEEN (NOT SEEN); Platelet Estimate ADEQ
--- NOTE | 2020-01-31 08:34 | P.DS ---
Admission Date: 01/29/20 Discharge Date: 01/31/20 Primary Care Provider: Dr. Palumbo; Oncology-Dr. England; Surgery-Dr. Greer Disposition: ROUTINE DISCHARGE Discharge Condition: GOOD Reason for Admission: Elevated blood pressure Brief History of Present Illness: Patient is a 59 year old woman with invasive ductal carcinoma, who was given neoadjuvant chemotherapy with a good response. She was taken to OR after extensive discussion of the options including partial mastectomy with axillary dissection, but patient did not want a single breast cosmetic defect and opted for bilateral mastectomy, with consideration for future reconstruction. Hospital Course: Patient did well post op a/p LEFT modified radical mastectomy, right simple mastectomy. She had some post op pain requiring admission for pain control, today she feels much better, had some tachycardia with hypertension, but improved with medical management, Dr. Esparza consulted. She is deemed appropriate for discharge Vital Signs/Physical Exam: Temp Pulse Resp BP Pulse Ox 97.3 F 107 H 20 148/61 H 98 01/31/20 04:00 01/31/20 05:17 01/31/20 04:00 01/31/20 05:17 01/31/20 04:00 General: Alert, In no apparent distress, Cooperative HEENT: Mucous membr. moist/pink Respiratory: Clear to auscultation bilaterally Cardiovascular: Other (tachycardia - borderline) Musculoskeletal: No clubbing, No swelling, No tenderness, No warmth Integumentary: Other (bilteral skin sparing mastectomy skin flaps are pink, viable, JPs bilaterally are serosanguanous) Neurological: Normal gait, Normal speech, Normal strength at 5/5 x4 extr Laboratory Data at Discharge: WBC 9.1 K/uL (4.3-10.9) 01/31/20 05:32 Hgb 9.3 g/dL (12.0-15.0) L 01/31/20 05:32 Hct 28.2 % (36.0-45.0) L 01/31/20 05:32 Plt Count 308 K/uL (152-406) 01/31/20 05:32 PT 12.0 SECONDS (9.5-12.5) 01/16/20 14:18 INR 1.02 01/16/20 14:18 APTT 32.3 SECONDS (24.3-36.9) 01/16/20 14:18 Sodium 139 mmol/L (136-145) 01/31/20 05:32 Potassium 3.6 mmol/L (3.5-5.1) 01/31/20 05:32 BUN 7 mg/dL (7-18) 01/31/20 05:32 Creatinine 0.68 mg/dL (0.55-1.3) 01/31/20 05:32 Glucose 146 mg/dL (74-106) H 01/31/20 05:32 Phosphorus 2.4 mg/dL (2.5-4.9) L 01/31/20 05:32 Magnesium 1.7 mg/dL (1.8-2.4) L 01/31/20 05:32 Home Medications: Budesonide/Formoterol Fumarate [Symbicort 160-4.5 Mcg Inhaler] 1 puff IH PRN PRN 07/04/19 Aspirin [Aspirin EC 81 MG] 162 mg PO DAILY #60 tablet. 07/31/19 Amlodipine [Norvasc*] 10 mg PO DAILY #30 tab 08/09/19 Atorvastatin Calcium [Lipitor] 40 mg PO BEDTIME #30 tab 08/09/19 Docusate/Senna [Senokot-S*] 2 tab PO BEDTIME PRN #60 tab 08/09/19 Losartan Potassium [Cozaar*] 50 mg PO BID #60 tablet 08/09/19 Metformin HCl [Metformin ER Osmotic] 1,000 mg PO BID 01/16/20 Patient Discharge Instructions: - return to clinic in 1 week for SHANNAN removal Diet: Regular Activity: No lifting more than 10 lbs Followup: Omari Greer MD [ACTIVE - CAN ADMIT] - 1 Week Time spent managing pt's care (in minutes): 31
[2020-01-31] MEDS: LOSARTAN POTASSIUM 50 MG TABLET PO SCH ×2 (08:51→20:45)
[2020-01-31] MEDS: METFORMIN ER 500 MG TAB PO SCH ×2 (08:52→20:45)
[2020-01-31] MEDS: AMLODIPINE 10 MG TAB PO SCH (08:52)
[2020-01-31] MEDS: ASPIRIN EC 81 MG TAB PO SCH (08:53)
[2020-01-31] MEDS: ENOXAPARIN 40 MG/0.4 ML SQ SCH (08:54)
[2020-01-31] MEDS ORDERED: POTASSIUM PHOS IN 0.9 % NACL 15 MMOL/250 ML BAG IV ONE (09:00)
[2020-01-31] MEDS ORDERED: MAGNESIUM SULFATE 1 gm IVPB 1 GM/100 ML BAG IV ONE (09:00)
[2020-01-31] MEDS ORDERED: POTASSIUM CL SA 10 MEQ TAB PO ONE (09:00)
[2020-01-31] MEDS ORDERED: ATORVASTATIN 40 MG TAB PO SCH (21:00)
[2020-02-01] MEDS: Ringers Lactate 1,000 ML IV SCH (06:00)
[2020-02-01] MEDS: CEFAZOLIN/SWI 1gm 1 GM/10 ML SYR IVP SCH (06:12)
[2020-02-01] MEDS: METOPROLOL TAR 25 MG TAB PO SCH (06:13)
[2020-02-01 06:19] LABS: Absolute Lymphocytes (CBC) 0.7 K/uL (0.7-4.9); Basophils % 0.5 % (0-1.3); Hematocrit 27.7 % (36.0-45.0); Lymphocytes % 9.9 % (15.3-44.8); MPV 7.8 fL (7.6-11.3); RBC Red Blood Cell Count 3.15 M/uL (3.86-4.86)
[2020-02-01] MEDS: HYDROCODONE/APAP 7.5/325 MG TAB PO PRN (06:23)
[2020-02-01 06:34] LABS: BUN Blood Urea Nitrogen 7 mg/dL (7-18); Bicarbonate 26 mmol/L (21-32); Glucose Level 141 mg/dL (74-106); Phosphorus 2.6 mg/dL (2.5-4.9); Potassium 3.4 mmol/L (3.5-5.1); Sodium Level 140 mmol/L (136-145)
[2020-02-01] MEDS: INSULIN -REGULAR HUMAN 50 UNIT/0.5 ML ML SQ SCH (07:30)
[2020-02-01] MEDS ORDERED: MAGNESIUM SULFATE 1 gm IVPB 1 GM/100 ML BAG IV ONE (08:00)
[2020-02-01 08:55] VITALS: O2SAT 98
[2020-02-01 09:18] VITALS: BP 141/66; TEMP 97.9
[2020-02-01] MEDS: LOSARTAN POTASSIUM 50 MG TABLET PO SCH (09:56)
[2020-02-01] MEDS: ASPIRIN EC 81 MG TAB PO SCH (09:56)
[2020-02-01] MEDS: ENOXAPARIN 40 MG/0.4 ML SQ SCH (09:56)
[2020-02-01] MEDS: METFORMIN ER 500 MG TAB PO SCH (09:56)
[2020-02-01] MEDS: AMLODIPINE 10 MG TAB PO SCH (09:56)
[2020-02-01] MEDS ORDERED: POTASSIUM CL SA 10 MEQ TAB PO ONE ×2 (10:03→10:18)
--- NOTE | 2020-02-01 18:43 | P.DS ---
Discharge Date: 02/01/20 Primary Care Provider: Dr. Palumbo; Oncology-Dr. England; Surgery-Dr. Chapa Disposition: ROUTINE DISCHARGE Discharge Condition: GOOD Reason for Admission: Elevated blood pressure Brief History of Present Illness: Patient is a 59-year-old female with history of hypertension, diabetes mellitus type 2 non-insulin dependent, hyperlipidemia, and left invasive breast cancer who had surgery on 01/29/2020 for left modified radical mastectomy and right simple mastectomy along with removal of chemotherapy port. I was asked to see the patient for medical management and to address her hypertension and tachycardia. Patient takes losartan 50 mg 1 pill twice daily along with amlodipine 10 mg daily. This was held due to her surgery. Apparently this was started late today. Patient without headache, chest pain or shortness of breath. Blood pressure still elevated. Heart rate around 120. Patient currently stable at this time. Hospital Course: Patient was assessed and patient was tachycardic. The patient was given pain control is started on a low-dose beta-isaura for blood pressure control. This assisted with heart rate control as well. Patient was having a lot of pain, but symptoms have improved. Will only do occur like stressing with the Bijan dressing. At this time, patient is stable for discharge home. Vital Signs/Physical Exam: Temp Pulse Resp BP Pulse Ox 97.9 F 87 17 141/66 H 100 02/01/20 08:00 02/01/20 09:56 02/01/20 08:00 02/01/20 09:56 02/01/20 08:00 General: Alert, In no apparent distress, Oriented x3 Laboratory Data at Discharge: WBC 7.5 K/uL (4.3-10.9) D 02/01/20 05:48 Hgb 9.3 g/dL (12.0-15.0) L 02/01/20 05:48 Hct 27.7 % (36.0-45.0) L 02/01/20 05:48 Plt Count 318 K/uL (152-406) 02/01/20 05:48 PT 12.0 SECONDS (9.5-12.5) 01/16/20 14:18 INR 1.02 01/16/20 14:18 APTT 32.3 SECONDS (24.3-36.9) 01/16/20 14:18 Sodium 140 mmol/L (136-145) 02/01/20 05:48 Potassium Cancelled 02/01/20 16:00 BUN 7 mg/dL (7-18) 02/01/20 05:48 Creatinine 0.54 mg/dL (0.55-1.3) L 02/01/20 05:48 Glucose 141 mg/dL (74-106) H 02/01/20 05:48 Phosphorus 2.6 mg/dL (2.5-4.9) 02/01/20 05:48 Magnesium 1.7 mg/dL (1.8-2.4) L 02/01/20 05:48 Home Medications: Budesonide/Formoterol Fumarate [Symbicort 160-4.5 Mcg Inhaler] 1 puff IH PRN PRN 07/04/19 Aspirin [Aspirin EC 81 MG] 162 mg PO DAILY #60 tablet. 07/31/19 Atorvastatin Calcium [Lipitor] 40 mg PO BEDTIME #30 tab 08/09/19 Docusate/Senna [Senokot-S*] 2 tab PO BEDTIME PRN #60 tab 08/09/19 Losartan Potassium [Cozaar*] 50 mg PO BID #60 tablet 08/09/19 Metformin HCl [Metformin ER Osmotic] 1,000 mg PO BID 01/16/20 Hydrocodone 7.5/APAP 325 [[place] 7.5/325 mg*] 1 tab PO Q12HP PRN #20 tab 02/01/20 Metoprolol Tartrate [Lopressor*] 50 mg PO BID 6AM 6PM #30 tab 02/01/20 New Medications: Metoprolol Tartrate [Lopressor*] 50 mg PO BID 6AM 6PM #30 tab Hydrocodone 7.5/APAP 325 [[place] 7.5/325 mg*] 1 tab PO Q12HP PRN #20 tab PRN Reason: Pain Scale 5-7 (Moderate) Patient Discharge Instructions: OK TO DC IV AND DC HOME. HOLD ASPIRIN FOR 1 WEEK. FOLLOW-UP WITH PRIMARY CARE PROVIDER IN 1-2 WEEKS. FOLLOW-UP WITH DR. CHAPA THIS WEEK-for removal of SHANNAN drain. RETURN TO THE ER IF SYMPTOMS WORSEN. CALL or TEXT DR. LESTER AT [phone] IF ANY QUESTIONS REGARDING HOSPITAL STAY. PLEASE CALL THE FLOOR AT [phone] IF ANY MEDICATION OR NURSING QUESTIONS. - dressing changes with kerlex and then BIJAN bandage. - return to clinic this week for SHANNAN removal Diet: Regular Activity: No lifting more than 10 lbs Followup: Omari Chapa MD [ACTIVE - CAN ADMIT] - 1 Week Time spent managing pt's care (in minutes): 35
--- NOTE | 2020-02-01 18:46 | P.PN ---
Subjective Date of Service: 01/31/20 Patient status post mastectomy. Patient is having pain and tachycardic. Patient has had a stroke recently as well. Patient is not stable for discharge today. Will need to convert take the inpatient hospitalization as patient is status post mastectomy. Review of Systems 10-point ROS is otherwise unremarkable Physical Examination - Vital Signs Temperature: 97.9 F Blood Pressure: 141/66 Pulse: 87 Respirations: 17 Pulse Ox (%): 100 - Physical Exam General: Alert, In no apparent distress, Oriented x3 Respiratory: Clear to auscultation bilaterally, Normal air movement Cardiovascular: Regular rate/rhythm, Normal S1 S2, No murmurs Gastrointestinal: Normal bowel sounds, Soft and benign, Non-distended, No tenderness Musculoskeletal: No clubbing, No swelling, No tenderness Integumentary: No rashes Neurological: Sensation intact, Cranial nerves 3-12 intact - Studies Laboratory Data (last 24 hrs) 02/01/20 16:00: Potassium Cancelled 02/01/20 05:48: Sodium 140, Potassium 3.4 L, BUN 7, Creatinine 0.54 L, Glucose 141 H, Phosphorus 2.6 02/01/20 05:48: Magnesium 1.7 L 02/01/20 05:48: WBC 7.5 D, Hgb 9.3 L, Hct 27.7 L, Plt Count 318 Medications List Reviewed: Yes Assessment & Plan - Problems (Diagnosis) (1) Status post mastectomy Status: Acute (2) Tachyarrhythmia Status: Acute (3) History of breast cancer Status: Chronic (4) Hypertension Status: Chronic Qualifiers: Hypertension type: other secondary hypertension Qualified Code(s): I15.8 - Other secondary hypertension (5) History of diabetes mellitus, type II Status: Chronic (6) History of stroke Status: Chronic - Plan Plan: 1. Continue with pain control 2. Changed BP meds to beta-isaura therapy to help with rate control 3. Gentle hydration 4. Strict blood pressure and blood sugar control 5. Anti-platelet therapy and statin therapy can resume in 48 hr 6. GI and DVT prophylaxis Discharge Plan: Home Plan to discharge in: Greater than 2 days - Advance Directives Does patient have a Living Will: No Does patient have a Durable POA for Healthcare: No - Code Status/Comfort Care Code Status Assessed: Yes Code Status: Full Code Critical Care: No Time Spent Managing PTS Care (In Minutes): 35
== END 2020-02-01 11:32 | disposition home or self-care (01) | DRG 941 ==
LOC: OR 07:06 → 2ND 13:32 → OR 13:32 → 2ND 15:34 → INTOOBSV 15:34 → OBSVTOIN 15:34 → UNDOADMOB 15:34 → 2ND 01-31 14:32 → UNDOADMOB 01-31 14:32 → OBSVTOIN 01-31 14:32 → INTOOBSV 01-31 14:32 → UNDODISIN 02-01 11:32
PROVIDERS: ADMIT Surgery; ATTEND Surgery
PROC: 0JPV3XZ Removal of Tunneled Vascular Access Device from Upper Extremity Subcutaneous Tissue and Fascia, Percutaneous Approach (ICD-10-PCS; 2020-01-29)
PROC: 0HTT0ZZ Resection of Right Breast, Open Approach (ICD-10-PCS; principal; 2020-01-29 08:30)
PROC: 0HTU0ZZ Resection of Left Breast, Open Approach (ICD-10-PCS; 2020-01-29 08:30)
DX: G89.18 Other acute postprocedural pain (principal); E11.9 Type 2 diabetes mellitus without complications; E78.5 Hyperlipidemia, unspecified; I15.8 Other secondary hypertension; J44.9 Chronic obstructive pulmonary disease, unspecified; C50.912 Malignant neoplasm of unspecified site of left female breast; E66.9 Obesity, unspecified; R00.0 Tachycardia, unspecified; Z68.39 Body mass index [BMI] 39.0-39.9, adult; Z79.82 Long term (current) use of aspirin; Z79.84 Long term (current) use of oral hypoglycemic drugs; Z79.899 Other long term (current) drug therapy; Z86.73 Personal history of transient ischemic attack (TIA), and cerebral infarction without residual deficits; Z87.891 Personal history of nicotine dependence; Z90.710 Acquired absence of both cervix and uterus
CPT/HCPCS: 36415; 71046; 80048; 82947; 83735; 84100; 84132; 85014; 85018; 85025; 85610; 85730; 86850; 86900; 86901; 88300; 88305; 88307; 93005; 94010; 94760; 97116; 97161; J0360; J0690; J1100; J1170; J1650; J2250; J2370; J2405; J2704; J3010; J3475; J7030; J7120

== ENCOUNTER 2020-02-27 00:13 | Emergency (ER) | payer OTHER ==
--- OUTSIDE RECORDS SUMMARY | 2020-02-27 00:16 | XMS REPORT | Continuity of Care Document ---
:1960 Author Organization [employer] Care Team Providers Name Role Phone Amazing Photo Letters Unavailable Un available Problems Problem Status Onset Classification Date Comments Sourc e Date Reported CHEMOTHERAPY Active 01/10/20 Memoria l COMPLETED 20 Jah BREAST CANCER Active 07/01/19 [facility] 20 Jah Pain in left 02/15/20 02/17/2017 [facility] hip 17 Sciatica, 02/15/20 02/17/2017 [facility] ast unspecified 17 side Low back pain 02/15/20 02/17/2017 No rtheast 17 SCIATICA TYPE Active 02/15/20 [facility] PAIN 17 Cutaneous 09/08/19 09/10/[place], 17 unspecified BOILS Active 09/07/19 [facility] 17 Jah Discharge 03/28/20 03/31/2015 [facility] Diagnosis: 15 Morbid obesity Discharge 03/28/20 03/31/2015 [place] Diagnosis: 15 Pain, abdominal, nonspecific ABDOMINAL PAIN Active 03/27/20 No rtheast 15 COPD Active 03/12/20 The 13 [place] Glaucoma Active Problem 02/17/2017 (disorder) [facility] , [place] Hypertensive Active Problem 02/17/2017 disorder, [facility] systemic [place] arterial (disorder) Cyst of ovary Resolved Problem 02/17/2017 (disorder) [facility] Medications Medication Details Route Status Patient Ordering Order Source Instructions Provider Date losartan 25 mg 25 mg = 1 Active oral tablet tab, PO, 2019 [place] Daily, # 30 tab, 0 Refill(s) Acetaminophen 300 1 tab, PO, Active MG / Codeine Q6H, PRN 2019 [place] Phosphate 30 MG Pain, # 28 Oral Tablet tab, 0 [Tylenol with Refill(s) Codeine #3] Acetaminophen 300 1 tab, PO, Active MG / Codeine Q6H, PRN 2016 [place] Phosphate 30 MG Pain, X 3 Oral Tablet day, # 12 [Tylenol with tab, 0 Codeine #3] Refill(s) Cyclobenzaprine 10 mg, PO, Active hydrochloride 10 TID, PRN 2016 [facility] MG Oral Tablet Muscle [Flexeril] Spasm, X 5 day, # 15 tab, 0 Refill(s) Motrin 800 mg 800 mg = 1 Active oral tablet tab, PO, 2016 [facility] Q8H, PRN Pain, Take with food, X 5 day, # 15 tab, 0 Refill(s) Motrin 600 mg, Inactive Route: PO, 2016 [facility] Drug form: TAB, ONCE, Dosing Weight 123.438, kg, Priority: STAT, Start date: 02/14/17 12:01:00 CDT, Stop date: 02/14/17 12:01:00 CDT Acetaminophen 300 1 tab, PO, No Longer 05/ M H MG / Codeine Q6H, PRN Active 2016 [place] Phosphate 30 MG Pain, X 2 Oral Tablet day, # 8 [Tylenol with tab, 0 Codeine #3] Refill(s) Septra DS 800 1 tab, PO, Active mg-160 mg oral BID, X 10 2016 [place] tablet day, # 20 tab, 0 Refill(s) Acetaminophen 300 1 - 2 tab, No Longer 12/05/ M H MG / Codeine PO, Q4H, PRN Active 2014 [place] Phosphate 30 MG Pain, X 2 Oral Tablet day, # 20 [Tylenol with tab, 0 Codeine #3] Refill(s) Acetaminophen 325 Notes: Do Inactive MG / Hydrocodone not exceed 2014 [facility] Bitartrate 10 MG 4gm/day of Oral Tablet acetaminophe [[place] 10/325] n. (Same as: [place] 325/10) 200 ACTUAT 2 puff, Active Albuterol 0.09 INHALATION, 2014 MG/ACTUAT Metered QID, 0 Dose Inhaler Refill(s) Non-Formulary Refill(s) 0 Active Home Medication [facility] t non-formulary Refill(s) 0 Active 2014 [facility] Morphine Notes: (Same Inactive as:MORPhine 2014 Sulfate) Ondansetron Notes: (Same Inactive as: Zofran) 2014 MEDICATION WASTE Product Size: 4 mg Product Wasted: ___ mg Sodium Chloride 1,000 mL, Inactive 0.154 MEQ/ML 1000 ml/hr, [address] Injectable Infuse Over: Solution 1 hr, Route: IV, 1,000, Drug form: INJ, ONCE, Priority: STAT, Dosing Weight 122.727 kg, Start date: 03/28/15 0:01:00, Duration: 1 doses or times, Stop date: 03/28/15 0:01:00 Saline Flush 0.9% Notes: (Same Inactive as: BD 2014 [facility] Posiflush) Allergies, Adverse Reactions, Alerts No Known Medication Allergies Immunizations No Data Provided for This Section Results Order Name Results Value Reference Date Interpretation Comments Flori rce Range HEMATOLOGY PT 13.8 12.0 - 07/07 MH 14.7 /2019 [place] HEMATOLOGY INR 1.06 0.85 - 07/07 MH 1.17 /2019 [place] HEMATOLOGY PTT 28.8 22.9 - 07/07 35.8 /2019 [place] URINE AND UA Sq Epi Few /LPF Few /LPF 03/28 STOOL /2014 [place] URINE AND UA WBC 0-2 /HPF None Seen 03/28 STOOL /HPF /2014 [place] URINE AND Micro? Performed 03/28 [facility] (03/28/15 1:00 AM) [facility] URINE AND UA RBC 0-2 /HPF 0 - 2 03/28 STOOL /2014 [place] URINE AND UA Bacteria Occasional None Seen 03/28 STOOL /HPF /HPF /2014 [place] URINE AND UA Nitrite Negative Negative 03/28 [facility] (03/28/15 1:00 AM) [place] URINE AND UA 0.2 0.1 - 1.0 03/28 [facility] Urobilinogen /2014 [place] URINE AND UA Leuk Est Negative Negative 03/28 STOOL (03/28/15 1:00 AM) [place] URINE AND UA Bili Negative Negative 03/28 STOOL *NA* /2014 [facility] (03/28/15 1:00 AM) URINE AND UA Blood Negative Negative 03/28 STO[facility] (03/28/15 1:00 AM) /2014 [place] URINE AND UA Ketones Trace Negative 03/28 STOOL *ABN* /2014 [facility] (03/28/15 1:00 AM) URINE AND UA Glucose Negative Negative 03/28 STO[facility] (03/28/15 1:00 AM) [place] URINE AND UA pH 5.5 5.0 - 8.0 03/28 STOOL [facility] URINE AND UA Protein Negative Negative 03/28 STO[facility] (03/28/15 1:00 AM) [place] URINE AND UA Turbidity Slight Cloudy Clear 03/28 [facility] (03/28/15 1:00 AM) [place] URINE AND UA Spec Grav >=1.030 <=1.030 03/28 STOOL *ABN* /2014 [facility] (03/28/15 1:00 AM) URINE AND UA Color Yellow Yellow 03/28 STOOL *NA* /2014 [facility] (03/28/15 1:00 AM) CHEM PANEL Lipase Lvl 107 73 - 393 03/28 [facility] CHEM PANEL B/C Ratio 14 6 - 25 03/28 [facility] CHEM PANEL AGAP 7.8 10.0 - 03/28 20.0 [facility] CHEM PANEL A/G Ratio 1.2 0.7 - 1.6 03/28 [facility] CHEM PANEL Globulin 3.0 2.0 - 4.0 03/28 [facility] CHEM PANEL eGFR 87 03/28 Result Comment: The [facility] eGFR is calculated using the CKD-EPI formula. In most young, healthy individuals the eGFR will be >90 mL/min/1.73m2 . The eGFR declines with age. An eGFR of 60-89 may be normal in some populations, particularly the elderly, for whom the CKD-EPI formula has not been extensively validated. Use of the eGFR is not recommended in the following populations:< br/>
Selena viduals with unstable creatinine concentration s, including patients and those with serious co-morbid conditions.<b r/>
Patie nts with extremes in muscle mass or diet.

The data above are obtained from the National Kidney Disease Education Program (NKDEP) which additionally recommends that when the eGFR is used in patients with extremes of body mass index for purposes of drug dosing, the eGFR should be multiplied by the estimated BMI. CHEM PANEL Alk Phos 101 39 - 136 12/05 [facility] /2014 [place] CHEM PANEL Bili Total 0.3 0.2 - 1.3 12/ MH /2014 [place] CHEM PANEL ALT 26 0 - 65 12/ MH /2014 [place] CHEM PANEL AST 8 0 - 37 12/ MH /2014 [place] CHEM PANEL Albumin Lvl 3.6 3.5 - 5.0 12/ MH /2014 [place] CHEM PANEL Calcium Lvl 8.9 8.5 - 10.5 03/28 MH /2014 [place] CHEM PANEL Total 6.6 6.4 - 8.4 / MH Protein /2014 [place] CHEM PANEL Chloride Lvl 109 95 - 109 03/28 MH /2014 [place] CHEM PANEL CO2 28 24 - 32 12/ MH /2014 [place] CHEM PANEL Creatinine 0.88 0.50 - 12/ MH Lvl 1.40 /2014 [place] CHEM PANEL Sodium Lvl 141 135 - 145 03/28 MH /2014 [place] CHEM PANEL Potassium 3.8 3.5 - 5.1 03/28 Lvl /2014 [place] CHEM PANEL BUN 12 7 - 22 03/28 /2014 [place] CHEM PANEL Glucose Lvl 131 70 - 99 / MH /2014 [place] HEMATOLOGY Segs 50.4 45.0 - 12/ MH 75.0 /2015 [place] HEMATOLOGY Eosinophils 7.0 0.0 - 4.0 / MH /2014 [place] HEMATOLOGY Segs-Bands # 3.9 1.5 - 8.1 03/28 MH /2014 [place] HEMATOLOGY Monocytes 7.9 2.0 - 12.0 12/ MH /2014 [place] HEMATOLOGY Lymphocytes 33.8 20.0 - 12/05 MH 40.0 /2015 [place] HEMATOLOGY Basophils 0.9 0.0 - 1.0 / MH /2014 [place] HEMATOLOGY Eosinophils 0.5 0.0 - 0.5 12/05 MH # /2015 [place] HEMATOLOGY Monocytes # 0.6 0.0 - 0.8 12/ MH /2014 [place] HEMATOLOGY Basophils # 0.1 0.0 - 0.2 12/ MH /2014 [place] HEMATOLOGY Lymphocytes 2.6 1.0 - 5.5 12/05 MH # /2015 [place] HEMATOLOGY Hgb 13.3 12.0 - 12/05 MH 16.0 /2015 [place] HEMATOLOGY RBC 4.70 4.20 - 12/05 MH 5.40 /2014 [place] HEMATOLOGY WBC 7.7 3.7 - 10.4 03/28 [facility] HEMATOLOGY RDW 13.0 11.5 - 03/28 MH 14.5 /2014 [facility] HEMATOLOGY MCHC 32.5 32.0 - 03/28 36.0 /2014 [facility] HEMATOLOGY Hct 40.9 36.0 - 03/28 MH 48.0 /2014 [facility] HEMATOLOGY MCH 28.3 27.0 - 03/28 MH 31.0 /2014 [facility] HEMATOLOGY MCV 87.0 80.0 - 03/28 98.0 /2014 [facility] HEMATOLOGY MPV 8.2 7.4 - 10.4 03/28 [facility] HEMATOLOGY Platelet 296 133 - 450 03/28 [facility] Pathology Reports No Data Provided for This Section Diagnostic Reports Report Value Date Source CVC insert tunnel All elements of maximal ster ile barrier technique were utilized including: cap, 07/08/2019 [facility] [place] w/-w/o port/pump age mask, sterile gown, sterile gloves, sterile full-body drape, hand hygiene, 5+ yrs VR sterile probe cover, sterile ultrasound gel and 2% chlorhexidine for cutaneous antisepsis. Lona Parks MD On 10/23/2019 16:26:03; [id number] PROCEDURE INFORMATION: Exam: IR Central Central Venous Access Device Pr ocedure Exam date and time: 07/08/2019 11:41 AM Age: 59 years old Clinical indication: Device placement; Additiona l info: Ca/port placement PROCEDURE: 1. Ultrasound and fluoroscopic-guided placement of a right chest port via the right internal jugular vein 2. Moderate sedation CLINICAL INDICATION: Need for chemotherapy, hist ory of breast cancer COMPARISON: No relevant prior studies available CONSENT: The procedure, risks, benefits, and alt ernatives were discussed with the patient and written informed consent was obt ained. A 'timeout' performed per protocol prior to the procedure. 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 Parks Preoperative diagnosis: Need for chemotherapy, h istory of breast cancer Postoperative diagnosis: same Fluoroscopy time: 0.3 minutes Reference air kerma: 3 mGy Estimated blood loss: Less than 10 cc Moderate sedation: I supervised moderate sedatio n during this procedure. Patient was continuously monitored by a nurse us ing automated blood pressure, electrocardiogram, and pulse oximetry. The moder ate sedation record is permanently stored in the [facility] [employer] system. The personal supervised moderate sedation time was 3 5 minutes. Medications administered: Versed 3 mg IV and Fentanyl 100 mcg IV. The patient was placed in a supine position on t he fluoroscopy table. Preprocedure ultrasound demonstrated a patent ri ght internal jugular vein and an image stored in the patient's [facility] medical record. The patient's right neck and chest were prepped and draped using maximum sterile barrier technique. The overlying skin was anest hetized with 1% lidocaine. Under sterile ultrasound guidance, an 18-gauge needle was advanced into the right internal jugular vein. Subsequently, a 0.035 inch w steve was advanced into the IVC. An incision was made using a 10 blade and a pocket created within the chest wall using blunt dissection. The catheter was tunneled under the skin to the IJ puncture site. The peel-away sheath was ins erted over the wire. The catheter was then inserted until the tip projected over the cavoatr ial junction. The peel-away sheath was removed and the catheter was connected to the est port. Final postprocedure fluoroscopic imaging demonst rated good position of the chest port, with tip projecting over the cavoatr ial junction. The port was packed with heparin and the incisio n site was closed using deep and subcuticular Vicryl sutures. The incision si viviane were also closed using Dermabond and Steri-Strips. Sterile dressings we re applied. The patient tolerated the procedure well without immediate c omplication. IMPRESSION: Successful placement of a ri ght chest port via the right internal jugular vein. Lona Caraballo MD On 07/08/2019 12:58:16; [id number] Hip 2/3 views uni DX Exam: Left Hip 2/3 views uni DX 02/14/2017 [facility] Clinical Indication: - pain with rom. No trauma . Comparison: None. FINDINGS: The 2 views of the hip show normal alignment without fractures or dislocations. Small enthesophytes are seen in the greater and lesser trochanter regions. There are no radio-opaque foreign bodies. Mild bilateral hip osteoarthritic changes are seen. The visualized sacroiliac joint and symphysis pubis show mild degenerative changes. If there is further concern, recommend follow-up radiographs or MRI for complete assessment. IMPRESSION: 1. No fracture or dislocatio n of the left hip. Mild degenerative changes, as noted above. SL: [id number] ED Abdomen/Pelvis IV Name: ANGE CUBA 03/28/2015 [facility] contrast only CT : 1960 SEX: F Ordering Physician: Radha Koenig ED Abdomen/Pelvis IV contrast only CT : Mar 28, 2015 02:04:00 AM. CLINICAL INDICATION: Abdom inal pain, acute LT SIDED ABD PAIN 2 WEEKS WORSE TONIGHT HX OVARIAN CYST FREQUENT URINATION PARTIAL HYST Comparison Examination: None TECHNIQUE: Sequential trans-axial image s of the abdomen and pelvis were obtained with a multi-detector helical CT. Coronal and sagittal reconstructions were obtained. Contrast: 100cc of IV Omnipaque Dose: The total exam DLP is 1094.96 mGy-cm. FINDINGS: CT ABDOMEN WITH CONTRAST: The visualized lung bases are clear. Bilateral cystic structures in the pelvis probably related to the ovaries or ovarian cyst not fully characterized with the right one easures 60 x 22 mm and the left one measures 50 x 17 mm not fully chioma racterized. If the pain is f elt to be from this region correlation with ultrasound may have merit GB wall thickening at 5 mm w hich could simply be related to a contracted gallbladder. The liver, spleen, pancreas, adrenals and kidney s are normal. The stomach is unremarkable. The small bowel and colon are also unremarkable. The appendix is well visualized and is unremarkable. There is no abdominal lymphadenopathy, pneumoper itoneum or ascites. The abdominal aorta and infe rior vena cava are patent with patent bilateral renal arteries, mesenteric arteries, and mesenteric veins including the portal vein. There are atherosclerotic calcifications within the aorta but no evidence for aneurysm. FINDINGS: CT PELVIS WITH CONTRAST: The bladder is normal. The inguinal regions are unremarkable. The visualized skeleton is unremarkable. IMPRESSION: 1. Bilateral cystic structu res in the pelvis probably related to the ovaries or ovarian cyst not fully characterized with the right one easures 60 x 22 mm and the left one measures 50 x 17 mm not fully characterized. If the pain is felt to be from this region correlation with ultrasound may have merit 2. GB wall thickening at 5 mm which could simply be related to a contracted gallbladder. SL: 24 Consultation Notes No Data Provided for This Section Discharge Summaries No Data Provided for This Section History and Physicals No Data Provided for This Section Vital Signs Vital Sign Value Date Comments Source Height 165.1 cm 07/08/2019 [place] Weight 108.636 07/08/2019 [place] BMI Calculated 39.85 07/08/2019 [place] Respitory Rate 18 02/14/2017 [place] Heart Rate 74 02/14/2017 [place] Systolic (mm Hg) 175 02/14/2017 [place] Diastolic (mm Hg) 76 02/14/[address] Heart Rate 72 02/14/2017 [place] Respitory Rate 18 02/14/2017 [place] Systolic (mm Hg) 180 02/14/2017 [place] Diastolic (mm Hg) 75 02/14/[address] Respitory Rate 20 02/14/2017 [place] Heart Rate 80 02/14/2017 [place] Systolic (mm Hg) 182 02/14/2017 [place] Diastolic (mm Hg) 84 02/14/[address] BMI Calculated 43.92 02/14/2017 [place] Weight 123.438 02/14/2017 [place] Height 167.64 cm 02/14/2017 [facility] Temperature Oral (F) 98.0 F 02/14/2017 [facility] 18 [facility] Oral (F) 98.6 F 09/07/2016 [place] Systolic (mm Hg) 152 09/07/2016 [place] Diastolic (mm Hg) 74 09/07/2016 [place] Systolic (mm Hg) 163 09/07/2016 [place] Diastolic (mm Hg) 88 09/07/2016 [place] Heart Rate 88 09/07/2016 [place] Respitory Rate 18 09/07/2016 [place] Temperature Oral (F) 98.7 F 09/07/2016 [place] Height 167.64 cm 09/07/2016 [place] Temperature Oral (F) 99.0 F 09/07/2016 [place] Respitory Rate 18 09/07/2016 [place] Heart Rate 95 09/07/2016 [place] Systolic (mm Hg) 177 09/07/2016 [place] Diastolic (mm Hg) 94 09/07/2016 [place] Weight 118.182 09/07/2016 [place] BMI Calculated 42.05 [facility]07[facility] 72 03/28/2015 [facility] Temperature Oral (F) 98.0 F 03/28/2015 [place] Systolic (mm Hg) 173 03/28/2015 [place] Diastolic (mm Hg) 72 03/28/[address] Respitory Rate 16 03/28/2015 [place] Systolic (mm Hg) 184 03/28/2015 [place] Diastolic (mm Hg) 95 03/28/[address] [facility] [address] Heart Rate 74 03/28/2015 [place] Respitory Rate 16 03/28/2015 [place] Systolic (mm Hg) 199 03/28/2015 [place] Diastolic (mm Hg) 89 03/28/[address] [facility] [address] Heart Rate 76 03/28/2015 [place] Respitory Rate 18 03/28/2015 [facility] Height 165.1 cm 03/28/2015 [facility] BMI Calculated 47.74 03/28/2015 [facility] Weight 130.136 03/28/2015 [facility] Temperature Oral (F) 98.1 F 03/28/2015 [facility] Height 167.64 cm 03/14/2013 [facility] Weight 122.727 03/14/2013 [facility] Encounters Location Location Encounter Encounter Reason Attending ADM DC Stat us Source Details Type Number For Provider Date Date Visit The Outpatient [id number] COPD ARNOLDO 03/14 03/14 Active [facility]2012 [facility] [place] [id number] Rafael Luna 03/28 03/28 [facility] Emergency /2014 [place] [facility] [id number] [place] [place] 09/07 09/07 [facility] /2016 [facility] Emergency [id number] [place] 02/14 02/14 [facility] [place] /2016 [place] [facility] [id number] [place] 07/07 07[facility]08 [facility] Procedures Procedure Code Date Perfomer Comments Source Partial [id number] hysterectomy [place] Assessment and Plan No Data Provided for This Section Plan of Care No Data Provided for This Section Social History Social History Date Source Social History TypeResponse 07/08/2019 [facility] Smoking Status Current every day smoker; Type: Cigarett es; Exposure to Tobacco Smoke None; Cigarette Smoking Last 365 Days Yes; Reg Smoking Cessation Counseling No entered on: 07/08/19 Social History TypeResponse 03/28/2015 [facility] Substance Abuse 1 Alcohol 2 Smoking Status Current every day smoker; Type: Cigarett es; Tobacco use per day: 10; Exposure to Tobacco Smoke smokes; Cigarette Smoking Last 365 Days Yes; Reg Smoking Cessation Counseling No [id number] Family History No Data Provided for This Section Advance Directives No Data Provided for This Section Functional Status No Data Provided for This Section
--- OUTSIDE RECORDS SUMMARY | 2020-02-27 00:18 | XMS REPORT | Continuity of Care Document ---
:1960 Author Organization [facility] t Address [address] [place] [address] Care Team Providers Name Role Phone Kasey Attending Clinician Cedric Reinoso Attending Clinician Liban East Attending Clinician [place] Luna Attending Clinician Problems Condition Condition Condition Status Onset Resolution Last Treating Co mments Source Name Details Category Date Date Treatment Clinician Date CHEMOTHERA Diagnosis Active 2020-01-20 Memoria PY 9- 12:08:00 l COMPLETED 00:00: Jah CHEMOTHERA 00 PY COMPLETED Active 01/10/2020 [facility] [place] BREAST Diagnosis Active 2019-07-09 Mem oria CANCER 3- 14:53:00 l BREAST 00:00: Jah CANCER 00 Active 07/01/2019 [facility] SCIATICA Diagnosis Active 2016-042017-02-14 M emoria TYPE PAIN 0-24 14:00:00 l SCIATICA 00:00: John n TYPE PAIN 00 Active 02/14/2017 [facility] BOILS Diagnosis Active 2016-09-07 Mem oria 5-16 00:23:00 l BOILS 00:00: [place] 00 Active 09/06/2016 [facility] ABDOMINAL Diagnosis Active 2014-042015-05-05 Memoria PAIN 2-04 10:43:00 l 00:00: Jah ABDOMINAL 00 PAIN Active 03/27/2015 [facility] COPD Diagnosis Active 2012-042013-03-15 Mem oria - 08:29:00 l COPD 00:00: [place] 00 Active 03/12/2013 [facility] Essential Essential Problem Active [facility] hypert[facility] [...] [facility] Uncontroll Uncontroll Problem [...] St lesion lesion [facility] Cyst of Problem Resolve 2017-02-17 Mem oria ovary d 03:03:15 l (disorder) Cyst of Her nix ovary (disorder) Resolved Problem 02/17/[address] [facility] Glaucoma Problem Active 2017-02-17 Mem oria (disorder) 03:03:15 l Glaucoma John n (disorder) Active Problem 02/17/[address] [facility] Hypertensi Problem Active 2017-02-17 M emoria ve 03:03:15 l disorder, Jah systemic Hypertensi arterial ve (disorder) disorder, systemic arterial (disorder) Active Problem 02/17/2017 [facility] Pain in Problem 2016-042017-02-17 2017-02-17 Memoria left hip 0-24 03:03:15 03:03:15 l Pain in 05:00: [place] left hip 00 7 02/17/2017 [facility] Sciatica, Problem 2016-042017-02-17 2017-02-17 Memoria unspecifie 0-24 03:03:15 03:03:15 l d side 05:00: [place] Sciatica, 00 unspecifie d side 02/14/2017 02/17/2017 [facility] Low back Problem 2016-042017-02-17 2017-02-17 Memoria pain 0-24 03:03:15 03:03:15 l Low back 05:00: John n pain 00 02/14/2017 02/17/2017 [facility] Cutaneous Problem 2016-2016-09-10 2016-09-10 Memoria abscess, 09-07 03:38:26 03:38:26 l unspecifie 05:00: John n d Cutaneous 00 abscess, unspecifie d 09/07/2016 09/10/2016 [facility] Discharge Problem 2014-042015-03-31 2015-03-31 Memoria Diagnosis: 2-05 02:33:03 02:33:03 l Morbid 06:00: Jah obesity Discharge 00 Diagnosis: Morbid obesity 03/28/2015 03/31/2015 [facility] Discharge Problem 2014-042015-03-31 2015-03-31 Memoria Diagnosis: 2-05 02:33:03 02:33:03 l Pain, 06:00: Jah abdominal, Discharge 00 nonspecifi Diagnosis: c Pain, abdominal, nonspecifi c 03/28/2015 03/31/2015 [facility] Allergies, Adverse Reactions, Alerts This patient has no known allergies or adverse reactions. Social History Social Habit Start Date Stop Date Quantity Comments Source Social History 2015-03-28 2015-03-28 Zeferino blount 06:13:28 06:13:28 Smoking Status Start Date Stop Date Source Social History 2019-07-08 14:34:27 Zeferino nix Medications Ordered Filled Start Stop Current Ordering Indication Dosage Frequency Signature Comments Components Source Medication Medication Date Date Medication? Clinician (SIG) Name Name Glimepiride Glimepiride 2019-0 Yes Shelly [address] [facility] with [facility] - 00:[facility]: breakfast Memoria 00 or the l first main Outpati meal of ent the day [facility]0 Yes Shelly [address] [facility] Aspirin Aspirin 2019- Yes Shelly (OTC) [address] [facility] 4[facility]22 Millender tablet [facility] - 00:[facility]: Memoria 00 [facility] BusPIRone BusPIRone 2019- Yes Shelly [address] [facility] HCl HCl 4-22 Millender as needed [facility] - 00:00: for Memoria 00 anxiety [facility] ent Clinics Atorvastati Atorvastati 2019- Yes Shelly [address] [facility] n Calcium n Calcium 4-22 Millender in evening [facility] - 00:00: Memoria 00 [facility] Blood Blood 2019- Yes Shelly as [facility] Glucose Glucose 3-18 Millender directed [facility] - Monitor Monitor 00:00: (DISPENSE Me moria 00 BLOOD l GLUCOSE Outpati MONITOR ent FORMULARY Clinics TO INSURANCE) Lancets Lancets 2019-0 Yes Shelly as [facility]18 [facility] directed [facility] - 00:00: (dispense Memoria 00 lancets l formulary Outpati to ent insurance) Clinics Glucose Glucose 2019-0 Yes Shelly as [facility] testing testing 3-18 Millender directed [facility] - strips strips 00:00: (dispense Thaddeus mekhi 00 testing l strips Outpati formulary ent to Clinics insurance) Metformin Metformin 2019-0 Yes Shelly 1/[address] [facility] HCl HCl 3-18 Millender tablet [facility] - 00:00: with a Memoria 00 meal l [facility] Clinics losartan 25 2019-0 Yes 25 mg = 1 M emoria mg oral 3-16 tab, PO, l tablet 14:26: Daily, # [place] 00 30 tab, 0 Refill(s) Acetaminoph 2019-0 Yes 1 tab, PO, Memoria en 300 MG / 3-16 Q6H, PRN l Codeine 14:26: Pain, # 28 Herm zeny Phosphate 00 tab, 0 30 MG Oral Refill(s) Tablet [Tylenol with Codeine #3] Losartan Losartan Yes Shelly 1/[address] [facility] Potassium Potassium -29 Millender [facility] - [facility]: Memoria 00 l Outpati ent Clinics Acetaminoph 2016-04 Yes 1 tab, PO, Memoria en 300 MG / 0-24 Q6H, PRN l Codeine 18:44: Pain, X 3 Fany nn Phosphate 00 day, # 12 30 MG Oral tab, 0 Tablet Refill(s) [Tylenol with Codeine #3] Cyclobenzap 2016-04 Yes 10 mg, PO, Memoria rine 0-24 TID, PRN l hydrochlori 18:43: Muscle Herm zeny de 10 MG 00 Spasm, X 5 Oral Tablet day, # 15 [Flexeril] tab, 0 Refill(s) Motrin 800 2016-04 Yes 800 mg = 1 M emoria mg oral 0-24 tab, PO, l tablet 18:43: Q8H, PRN [place] 00 Pain, Take with food, X 5 day, # 15 tab, 0 Refill(s) Motrin 2016-04 No 600 mg, Memoria 0-24 Route: PO, l 17:01: Drug form: [place] 00 TAB, ONCE, Dosing Weight 123.438, kg, Priority: STAT, Start date: 02/14/17 12:01:00 CDT, Stop date: 02/14/17 12:01:00 CDT Acetaminoph No 1 tab, PO, Memoria en 300 MG / 5-17 Q6H, PRN l Codeine 06:22: Pain, X 2 Fany nn Phosphate 00 day, # 8 30 MG Oral tab, 0 Tablet Refill(s) [Tylenol with Codeine #3] Septra DS Yes 1 tab, PO, Me moria 800 mg-160 5-17 BID, X 10 l mg oral 06:21: day, # 20 Fany nn tablet 00 tab, 0 Refill(s) Acetaminoph 2014-04 No 1 - 2 tab, Memoria en 300 MG / 2-05 PO, Q4H, l Codeine 10:32: PRN Pain, Fany nn Phosphate 00 X 2 day, # 30 MG Oral 20 tab, 0 Tablet Refill(s) [Tylenol with Codeine #3] Acetaminoph 2014-04 No Notes: Do M emoria en 325 MG / 2-05 not exceed l Hydrocodone 10:30: 4gm/day of Jah Bitartrate 00 acetaminop 10 MG Oral hen. Tablet (Same as: [[facility] [id number]] 325/10) 200 ACTUAT 2014-04 Yes 2 puff, Thaddeus mekhi Albuterol 2-05 INHALATION l 0.09 09:39: , QID, 0 Jah MG/ACTUAT 00 Refill(s) Metered Dose Inhaler Non-Formula 2014-04 Yes Refill(s) Irma emoria ry Home 2-05 0 l Medication 09:38: [place] 00 non-formula 2014-04 Yes Refill(s) Irma emoria ry 2-05 0 l 09:37: Jah 00 Morphine 2014-04 No Notes: Memoria 2-05 (Same l 06:01: as:MORPhin 00 e Sulfate) Ondansetron 2014-04 No Notes: Thaddeus mekhi 2-05 (Same as: l 06:01: Zofran) [place] 00 MEDICATION WASTE Product Size: 4 mg Product Wasted: ___ mg Sodium 2014-04 No 1,000 mL, Memori a Chloride 2-05 1000 l 0.154 06:01: ml/hr, Jah MEQ/ML 00 Infuse Injectable Over: 1 Solution hr, Route: IV, 1,000, Drug form: INJ, ONCE, Priority: STAT, Dosing Weight 122.727 kg, Start date: 03/28/15 0:01:00, Duration: 1 doses or times, Stop date: 03/28/15 0:01:00 Saline 2014-04 No Notes: Memoria Flush 0.9% 2-05 (Same as: l 06:01: BD Jah 00 Posiflush) Combigan Combigan Yes Shelly 1 drop [facility] [...] [facility] - [facility] l Outpat[facility] ent Clinics Vital Signs Vital Name Observation Time Observation Value Comments Source Height 2019-07-08 14:21:00 165.1 cm [facility] [place] Weight 2019-07-08 14:21:00 [facility] BMI Calculated 2019-07-08 14:21:00 Memori al Jah Respitory Rate 2017-02-14 19:00:00 Memori al Jah Heart Rate 2017-02-14 19:00:00 [facility] Systolic (mm Hg) 2017-02-14 19:00:00 Thaddeus rial Jah Diastolic (mm Hg) 2017-02-14 19:00:00 Mem orial Jah Heart Rate 2017-02-14 17:12:00 [facility] [place] Respitory Rate 2017-02-14 17:12:00 Memori al [place] Systolic (mm Hg) 2017-02-14 17:12:00 Thaddeus rial [place] Diastolic (mm Hg) 2017-02-14 17:12:00 Mem orial Jah Respitory Rate 2017-02-14 16:57:00 Memori al [place] Heart Rate 2017-02-14 16:57:00 [facility] Systolic (mm Hg) 2017-02-14 16:57:00 Thaddeus rial [place] Diastolic (mm Hg) 2017-02-14 16:57:00 Mem orial [place] BMI Calculated 2017-02-14 15:38:00 Memori al Jah Weight 2017-02-14 15:38:00 [facility] [place] Height 2017-02-14 15:38:00 167.64 cm [facility] Temperature Oral (F) 2017-02-14 15:38:00 98.0 F [facility] [place] Respitory Rate 2016-09-07 06:40:00 Memori al Jah Heart Rate 2016-09-07 06:40:00 [facility] Temperature Oral (F) 2016-09-07 06:40:00 98.6 F [facility] Systolic (mm Hg) 2016-09-07 06:40:00 Thaddeus rial [place] Diastolic (mm Hg) 2016-09-07 06:40:00 Mem orial [place] Systolic (mm Hg) 2016-09-07 05:54:00 Thaddeus rial [place] Diastolic (mm Hg) 2016-09-07 05:54:00 Mem orial Jah Heart Rate 2016-09-07 05:54:00 [facility] [place] Respitory Rate 2016-09-07 05:54:00 Memori al Jah Temperature Oral (F) 2016-09-07 05:54:00 98.7 F [facility] [place] Height 2016-09-07 02:08:00 167.64 cm [facility] [place] Temperature Oral (F) 2016-09-07 02:08:00 99.0 F [facility] [place] Respitory Rate 2016-09-07 02:08:00 Memori al Jah Heart Rate 2016-09-07 02:08:00 [facility] [place] Systolic (mm Hg) 2016-09-07 02:08:00 Thaddeus rial [place] Diastolic (mm Hg) 2016-09-07 02:08:00 Mem orial Jah Weight 2016-09-07 02:08:00 [facility] BMI Calculated 2016-09-07 02:08:00 Memori al [place] Heart Rate 2015-03-28 11:51:00 [facility] Temperature Oral (F) 2015-03-28 11:51:00 98.0 F [facility] [place] Systolic (mm Hg) 2015-03-28 11:51:00 Thaddeus rial Jah Diastolic (mm Hg) 2015-03-28 11:51:00 Mem orial [place] Respitory Rate 2015-03-28 11:51:00 Memori al Jah Systolic (mm Hg) 2015-03-28 10:35:00 Thaddeus rial Jah Diastolic (mm Hg) 2015-03-28 10:35:00 Mem orial Jah Heart Rate 2015-03-28 10:35:00 [facility] Jah Respitory Rate 2015-03-28 10:35:00 Memori al [place] Systolic (mm Hg) 2015-03-28 09:36:00 Thaddeus rial Jah Diastolic (mm Hg) 2015-03-28 09:36:00 Mem orial Jah Heart Rate 2015-03-28 09:36:00 [facility] Jah Respitory Rate 2015-03-28 09:36:00 Memori al [place] Height 2015-03-28 05:58:00 165.1 cm [facility] [place] BMI Calculated 2015-03-28 05:58:00 Memori al Jah Weight 2015-03-28 05:58:00 [facility] [place] Temperature Oral (F) 2015-03-28 05:58:00 98.1 F [facility] Height 2013-03-14 17:00:00 167.64 cm [facility] Jah Weight 2013-03-14 17:00:00 [facility] Procedures Procedure Date / Time Performed Performing Clinician Edgard e Partial hysterectomy [facility] Encounters Start End Encounter Admission Attending Care Care Encounter Source Date/Time Date/Time Type Type Clinicians Facility Department ID 2020-01-10 Outpatient [facility] MED [id number] BL 15:47:17 2019-12-04 2019-12-04 [facility] [id number] [facility] 08:52:00 08:52:00 [place] [facility] Clin[facility] 2019-11-07 2019-11-07 [facility] [id number] [facility] 15:00:00 15:00:00 [place] [facility] Medicine Outpat[facility] ent Clinics 2019-08-20 2019-08-20 [facility] [id number] [facility] 08:12:00 08:12:00 [place] [facility] Medicine Outpat[facility] Clinics 2019-08-14 2019-08-14 [facility] [id number] [facility] 11:00:00 11:00:00 [place] [facility] Medicine Out[facility] Clinics 2019-07-08 2019-07-08 Outpatient Yallampalli [facility] [id number] 08:31:00 23:59:00 , Sasidhar 00 2019-07-08 2019-07-08 [facility] [id number] [facility] 13:11:00 13:11:00 [place] [facility] Medicine Outpat[facility] Clinics 2019-07-08 2019-07-08 Outpatient [facility] [id number] [facility] 08:31:00 08:31:00 2019-05-22 2019-05-22 [facility] [id number] 21:07:00 21:07:00 [facility] Medicine Outpati ent Clinics 2019-05-22 2019-05-22 [facility] [id number] [facility] 09:30:00 09:30:00 [facility] Medicine Outpati ent Clinics 2019-05-20 2019-05-20 [facility] [id number] 08[facility]57:00 08:57:00 [facility] Medicine Outpati ent Clinics 2019-05-16 2019-05-16 [facility] [id number] [facility] 14:55:00 14:55:00 [facility] Medicine Outpati ent Clinics 2019-05-07 2019-05-07 [facility] [id number] [facility] 15:15:00 15:15:00 [facility] Medicine Outpati ent Clinics 2017-02-14 2017-02-14 Outpatient Kemar [facility] [id number] 10:33:00 14:15:00 [place] Steele 2016-09-06 2016-09-07 Outpatient Jefe [place] [facility] [id number] 20:43:00 01:42:00 Liban 2015-03-27 2015-03-28 Outpatient Cheryl Rafael [facility] [id number] 23:42:00 06:26:00 [place] 2013-03-14 2013-03-14 Outpatient [facility] [id number] [place] [address] 10:55:00 23:59:00 00 l [facility] Results Test Description Test Time Test Comments Results Result Comments Source HEMATOLOGY 2019-07-08 14:23:00 Test Item Value Reference Range Interpretation Comme nts PT (test code = PT) 13.8 s 12.0-14.7 [id number] 14:23:00 Test Item Value Reference Range Interpretation Comments INR (test code = INR) 1.06 1 0.85-1.17 [facility]YWPVDHZRDP8098-37-54 14:23:00 Test Item Value Reference Range Interpretation Comments PTT (test code = PTT) 28.8 s 22.9-35.8 [facility]URINE AND [id number] 07:00:00Performed (03/28/15 1:00 AM) [facility]annURINE AND [id number] 07:00:00Negative (03/28/15 1:00 AM) [facility] [id number] 07:00:000.2[facility] [id number] 07:00:00Negative (03/28/15 1:00 AM)[facility] [id number] 07:00:00Negative *NA*(03/28/15 1:00 AM)[facility] [id number] 07:00:00Negative (03/28/15 1:00 AM)[facility] [id number] 07:00:00Trace *ABN*(03/28/15 1:00 AM)[facility] [id number] 07:00:00Negative (03/28/15 1:00 AM)[facility] [id number] 07:00:00 Test Item Value Reference Range Interpretation Comments UA pH (test code = UA pH) 5.5 1 5.0-8.0 [facility] [id number] 07:00:00Negative (03/28/15 1:00 AM) [facility] [id number] 07:00:00Slight Cloudy (03/28/15 1:00 AM)[facility] [id number] 07:00:00>=1.030 *ABN*(03/28/15 1:00 AM)[facility] [id number] 07:00:00Yellow *NA*(03/28/15 1:00 AM)[facility]annCHEM [id number] 06:33:58774Idelnnyq HermannCHEM VDRMB8485-28-70 06:33:0014[facility] HermannCHEM [id number] 06:33:007.8 [facility] [id number] 06:33:001.2[facility] HermannCHEM PANEL 2015-03-28 06:33:003.0[facility]annCHEM [id number] 06:33:0087[facility]annCHEM [id number] 06:33:02777Oifuhzao HermannCHEM [id number] 06:33:000.3[facility] HermannCHEM [id number] 06:33:0026[facility] HermannCHEM [id number] 06:33:008[facility] HermannCHEM [id number] 06:33:003.6 [facility]annCHE[facility] [id number] 06:33:008.9[facility] HermannCHEM PANEL 2015-03-28 06:33:006.6[facility] HermannCHEM [id number] 06:33:34750Ihtjaqjt HermannCHEM [id number] 06:33:0028[facility] HermannCHEM [id number] 06:33:000.88[facility] HermannCHEM [id number] 06:33:51115Zsvnihqw HermannCHEM [id number] 06:33:003.8[facility] HermannCHEM [id number] 06:33:0012 [facility]annCHEM [id number] 06:33:65068Cbhhksym HermannHEMATOLOGY 2015-03-28 06:33:0050.4[facility] DbdjhonPLFPTKJQNQ9699-87-62 06:33:007.0[facility] RieyodoBZUBORXXYD7920-48-50 06:33:003.9[facility]orial RcuhykvSKMKKPTPTZ9399-16-66 06:33:007.9[facility] HegttywJFONDFZWHJ3041-59-66 06:33:0033.8[facility] Jah PQXJUCGKLI7483-90-81 06:33:000.9[facility]orial DlkfwbeVCFWXPEUZJ3808-74-99 06:33:000.5 Memorial LooaddqYCTJXFLHPQ7355-47-00 06:33:000.6[facility] HermannHEMATOLOGY 2015-03-28 06:33:000.1[facility] DmbvaxtOBDJIHNYTK0873-55-06 06:33:002.6[facility]orial KmrdblpXJYEMYOXLD9022-01-98 06:33:0013.3[facility] RnxieydJSZATVJKNE9446-62-95 06:33:004.70[facility] ZlslsbcOFJBBOBACI2917-63-05 06:33:007.7[facility] Jah HKIDUPMQGR2572-25-61 06:33:0013.0[facility]orial WxgyekqXHSULKWUWQ6715-48-33 06:33:00 32.5Memorial TtvwowzZKMIJSOZDE3529-57-56 06:33:0040.9[facility] HermannHEMATOLOGY 2015-03-28 06:33:00 Test Item Value Reference Range Interpretation Comments MCH (test code = MCH) 28.3 pg 27.0-31.0 [facility] CyrtuyvVLBEMVVCON1890-14-55 06:33:0087.0[facility] HermannHEMATOLOGY 2015-03-28 06:33:008.2[facility] SoyaybcKTJCTDGJDY7970-84-16 06:33:72566Zxkwvilv Jah
--- OUTSIDE RECORDS SUMMARY | 2020-02-27 00:18 | XMS REPORT ---
[...] Start End Status Dosage System Date Lumigan [facility] 22416257739 0.01 % Active 1 drop into Ophthalmic Once affected eye a day in the evening Combigan [facility] 98007833032 0.2-0.5 % Active 1 drop in to Ophthalmic once affected eye a day Glucose testing [facility] [id number] n/s June Active as d irected strips subcutaneous 2019 (dispense Test BS once testing daily strips formulary to insurance) Losartan ND 23586867218 100 MG Orally Active 1/2 t ablet Potassium Twice a day BusPIRone HCl ND 05435614859 7.5 MG Orally Active 1 tablet as Twice a day needed for anxiety Blood Glucose ND 0 as directed June Active as di rected Monitor Test BS once 2019 (DISPENSE daily BLOOD GLUCOSE MONITOR FORMULARY TO INSURANCE) Symbicort ND 75117188074 160-4.5 MCG/ACT Active 1 puffs Inhalation Once a day Lancets [facility] 98928413320 - as directed June Active as dir ected Test BS once 2019 (dispense daily lancets formulary to insurance) Metformin HCl [facility] 19950625213 1000 MG Orally Active 1/2 to 1 Twice a day for tablet w ith diabetes a meal Amlodipine ND 07240908986 10 MG Orally Active 1 ta blet Besylate Once a day Januvia ND 89047511554 50 MG Orally November 06, Active 1 tabl et Once a day for 2019 diabetes Atorvastatin [facility] 42478770401 40 MG Orally Active 1 tablet in Calcium Once a day evening Aspirin [facility] 45321741754 81 MG Orally Active (OTC) 1 Once daily tablet Glimepiride ND 84656652560 2 MG Orally Dec 23, Active 1 t ablet Once a day 2019 with breakfast or the first main meal of the day Results No Known Results Summary Purpose eClinicalWorks Submission
[2020-02-27] MEDS ORDERED: MORPHINE 4 MG/ML SYR ONE (01:08)
--- NOTE | 2020-02-27 03:57 | EDPHYS ---
Physician Documentation [facility] Name: Martha Patel Age: 59 yrs Sex: Female : 1960 Arrival Date: 02/27/2020 Time: 00:14 Bed 6 Private MD: Shelly Antoine ED Physician Darren Castañeda HPI: 02/26 00:53 This 59 yrs old Black Female presents to ER via Ambulatory with complaints of Thigh mh7 Pain. 00:53 The patient presents with pain, swelling. The complaints affect the thigh. Context: The mh7 problem was sustained at an unknown site, resulted from an unknown cause, the patient can fully bear weight, the patient is able to ambulate, without difficulty, Problem is a result from a previous injury: No. Onset: The symptoms/episode began/occurred 2 week(s) ago. Modifying factors: The symptoms are alleviated by nothing. the symptoms are aggravated by nothing. Associated signs and symptoms: Pertinent positives: swelling, Pertinent negatives calf tenderness, fever, nausea, numbness, rash, tingling, vomiting, warmth, weakness. Treatment prior to arrival includes: prescription medications, codeine. Severity of symptoms: At their worst the symptoms were moderate, last night, in the emergency department the symptoms have improved, moderately. Historical: - Allergies: 00:28 No Known Allergies; sg - Home Meds: 00:41 BP medication [Active]; Cholesterol Medication [Active]; Metformin Oral [Active]; sg [place]-3 oral oral [Active]; gabapentin oral oral [Active]; aspirin Oral [Active]; - PMHx: 00:28 Cancer, Breast; Diabetes - NIDDM; Hypertension; sg - PSHx: 00:28 Hysterectomy; sg - Immunization history:: Adult Immunizations up to date. - Social history:: Smoking status: Patient denies any tobacco usage or history of. ROS: 00:53 Constitutional: Negative for fever, chills, and weight loss, Eyes: Negative for injury, mh7 pain, redness, and discharge, ENT: Negative for injury, pain, and discharge, Neck: Negative for injury, pain, and swelling, Cardiovascular: Negative for chest pain, palpitations, and edema, Respiratory: Negative for shortness of breath, cough, wheezing, and pleuritic chest pain, Abdomen/GI: Negative for abdominal pain, nausea, vomiting, diarrhea, and constipation, Back: Negative for injury and pain, : Negative for injury, bleeding, discharge, and swelling, Skin: Negative for injury, rash, and discoloration, Neuro: Negative for headache, weakness, numbness, tingling, and seizure, Psych: Negative for depression, anxiety, suicide ideation, homicidal ideation, and hallucinations, Allergy/Immunology: Negative for hives, rash, and allergies, Endocrine: Negative for neck swelling, polydipsia, polyuria, polyphagia, and marked weight changes, Hematologic/Lymphatic: Negative for swollen nodes, abnormal bleeding, and unusual bruising. Exam: 00:53 Constitutional: This is a well developed, well nourished patient who is awake, alert, mh7 and in no acute distress. Head/Face: Normocephalic, atraumatic. Eyes: Pupils equal round and reactive to light, extra-ocular motions intact. Lids and lashes normal. Conjunctiva and sclera are non-icteric and not injected. Cornea within normal limits. Periorbital areas with no swelling, redness, or edema. Neck: Trachea midline, no thyromegaly or masses palpated, and no cervical lymphadenopathy. Supple, full range of motion without nuchal rigidity, or vertebral point tenderness. No Meningismus. Chest/axilla: Normal chest wall appearance and motion. Nontender with no deformity. No lesions are appreciated. Cardiovascular: Regular rate and rhythm with a normal S1 and S2. No gallops, murmurs, or rubs. Normal PMI, no JVD. No pulse deficits. Respiratory: Lungs have equal breath sounds bilaterally, clear to auscultation and percussion. No rales, rhonchi or wheezes noted. No increased work of breathing, no retractions or nasal flaring. Abdomen/GI: Soft, non-tender, with normal bowel sounds. No distension or tympany. No guarding or rebound. No evidence of tenderness throughout. Back: No spinal tenderness. No costovertebral tenderness. Full range of motion. Skin: Warm, dry with normal turgor. Normal color with no rashes, no lesions, and no evidence of cellulitis. 00:53 Neuro: Awake and alert, GCS 15, oriented to person, place, time, and situation. Cranial nerves II-XII grossly intact. Motor strength 5/5 in all extremities. Sensory grossly intact. Cerebellar exam normal. Normal gait. Psych: Awake, alert, with orientation to person, place and time. Behavior, mood, and affect are within normal limits. 00:53 Musculoskeletal/extremity: Extremities: noted in the right thigh: pain, tenderness, ROM: intact in all extremities, Circulation is intact in all extremities. Pulses: are normal with no appreciated deficits, Perfusion: the patient is normally perfused throughout, Perfusion: the extremity is normally perfused throughout, Calf tenderness, is absent, Edema, is not appreciated, Sensation intact. Compartment Syndrome exam of affected extremity: is normal. no numbness, no tingling, no sensation deficit, no palor, no weak pulses, Joints: All joints appear normal with full range of motion. Weight bearing: able to fully bear weight, without difficulty, Tendon exam: specific tendon testing normal through active and passive range of motion DVT Exam: no swelling, negative Homans' sign noted on exam, no appreciated bluish discoloration, no erythema, no increased warmth, Calves: are non-tender, have equal circumference. Vital Signs: 00:35 BP 151 / 78; Pulse 78; Resp 18 S; Temp 97.6; Pulse Ox 95% on R/A; Pain 6/10; sg 01:30 BP 135 / 89; Pulse 70; Resp 16; Pulse Ox 98% ; rr5 02:39 BP 144 / 79; Pulse 76; Resp 17; Pulse Ox 99% ; rr5 04:00 BP 131 / 70; Pulse 70; Resp 19; Pulse Ox 99% ; rr5 MDM: 00:49 Patient medically screened. [facility] 03:55 Differential diagnosis: contusion, abrasion, DVT, Musculoskeletal Pain. Data reviewed: [facility] vital signs, nurses notes, old medical records, radiologic studies, ultrasound. Data interpreted: Pulse oximetry: on room air is 99 %. Interpretation: normal. Counseling: I had a detailed discussion with the patient and/or guardian regarding: the historical points, exam findings, and any diagnostic results supporting the discharge/admit diagnosis, the presence of at least one elevated blood pressure reading (>120/80) during this emergency department visit, radiology results, the need for outpatient follow up, to return to the emergency department if symptoms worsen or persist or if there are any questions or concerns that arise at home. Response to treatment: the patient's symptoms have markedly improved after treatment. 02/26 00:50 Order name: US Extremity Venous Unilateral Ltd mh7 Administered Medications: 01:02 Drug: morphine 4 mg {Note: rass 0.} Route: IM; Site: left gluteus; rr5 02:00 Follow up: Response: No adverse reaction; RASS: Alert and Calm (0) rr5 Disposition: 02/27/20 03:57 Discharged to Home. Impression: Right Thigh Pain. - Condition is Stable. - Discharge Instructions: Musculoskeletal Pain. - Medication Reconciliation Form, Thank You Letter, Antibiotic Education, Prescription Opioid Use form. - Follow up: Private Physician; When: 1 - 2 days; Reason: Worsening of condition, Recheck today's complaints, Continuance of care, Re-evaluation by your physician. - Problem is an ongoing problem. - Symptoms have improved. Signatures: Dispatcher [employer] EDMS Darvin Patel RN RN Neal Jimenez RN RN rr5 Darren Castañeda MD MD mh7 Corrections: (The following items were deleted from the chart) 04:15 03:57 02/27/2020 03:57 Discharged to Home. Impression: Right Thigh Pain. Condition is rr5 Stable. Forms are Medication Reconciliation Form, Thank You Letter, Antibiotic Education, Prescription Opioid Use. Follow up: Private Physician; When: 1 - 2 days; Reason: Worsening of condition, Recheck today's complaints, Continuance of care, Re-evaluation by your physician. Problem is an ongoing problem. Symptoms have improved. mh7
--- NOTE | 2020-02-27 03:57 | ER ---
Nurse's Notes [facility] Name: Martha Patel Age: 59 yrs Sex: Female : 1960 Arrival Date: 02/27/2020 Time: 00:14 Bed 6 Private MD: Shelly Antoine Diagnosis: Right Thigh Pain Presentation: 02/26 00:25 Chief complaint: Patient states: Sandra had this right thigh pain and swelling since my sg double mastectomy back in January, I had a ultrasound two days ago and looked online and it was negative it said, but Im still having the pain and swelling. Denies warm or hot to touch, states feels swollen to her at this time. Coronavirus screen: Client denies travel out of the [place] in the last 14 days. At this time, the client does not indicate any symptoms associated with coronavirus-19. Ebola Screen: Patient negative for fever greater than or equal to 101.5 degrees Fahrenheit, and additional compatible Ebola Virus Disease symptoms Patient denies exposure to infectious person. Patient denies travel to an Ebola-affected area in the 21 days before illness onset. No symptoms or risks identified at this time. Risk Assessment: Do you want to hurt yourself or someone else? Patient reports no desire to harm self or others. Onset of symptoms was February 15, 2020. Care prior to arrival: None. Activity prior to arrival: None. Transition of care: patient was not received from another setting of care. 00:25 Method Of Arrival: Ambulatory sg 00:25 Acuity: LISANDRO 3 sg 00:25 Note pt also reports having tingling in the Right arm since the operation and removal sg of portacath, states that the pain is worse in the right thigh when lying flat in bed. 00:25 Initial Sepsis Screen: Does the patient meet any 2 criteria? No. Patient's initial rr5 sepsis screen is negative. Does the patient have a suspected source of infection? No. Patient's initial sepsis screen is negative. Historical: - Allergies: 00:28 No Known Allergies; sg - Home Meds: 00:41 BP medication [Active]; Cholesterol Medication [Active]; Metformin Oral [Active]; sg [place]-3 oral oral [Active]; gabapentin oral oral [Active]; aspirin Oral [Active]; - PMHx: 00:28 Cancer, Breast; Diabetes - NIDDM; Hypertension; sg - PSHx: 00:28 Hysterectomy; sg - Immunization history:: Adult Immunizations up to date. - Social history:: Smoking status: Patient denies any tobacco usage or history of. Screenin:37 Abuse screen: Denies threats or abuse. Denies injuries from another. Nutritional rr5 screening: No deficits noted. Tuberculosis screening: No symptoms or risk factors identified. Fall Risk None identified. Total Mckenzie Fall Scale indicates No Risk (0-24 pts). Assessment: 01:03 General: Appears in no apparent distress. uncomfortable, Behavior is calm, cooperative, rr5 appropriate for age. Pain: Complains of pain in right leg Pain currently is 6 out of 10 on a pain scale. Quality of pain is described as aching, Pain began gradually, Is intermittent. Neuro: Level of Consciousness is awake, alert, obeys commands, Oriented to person, place, time, situation. Cardiovascular: Capillary refill < 3 seconds Patient's skin is warm and dry. Respiratory: Airway is patent Respiratory effort is even, unlabored, Respiratory pattern is regular, symmetrical. GI: No signs and/or symptoms were reported involving the gastrointestinal system. : No signs and/or symptoms were reported regarding the genitourinary system. EENT: No signs and/or symptoms were reported regarding the EENT system. Derm: Skin is intact, is healthy with good turgor, Skin temperature is warm. Musculoskeletal: Capillary refill < 3 seconds, Reports pain in right leg double mastectomy, left arm precaution. 02:20 Reassessment: Patient appears in no apparent distress at this time. Patient is alert, rr5 oriented x 3, equal unlabored respirations, skin warm/dry/pink. awaiting for ultrasound. 03:30 Reassessment: Patient appears in no apparent distress at this time. Patient is alert, rr5 oriented x 3, equal unlabored respirations, skin warm/dry/pink. ultrasound at bedside. 04:13 Reassessment: Patient appears in no apparent distress at this time. Patient is alert, rr5 oriented x 3, equal unlabored respirations, skin warm/dry/pink. discharge instruction given and explained without complaints made. Vital Signs: 00:35 BP 151 / 78; Pulse 78; Resp 18 S; Temp 97.6; Pulse Ox 95% on R/A; Pain 6/10; sg 01:30 BP 135 / 89; Pulse 70; Resp 16; Pulse Ox 98% ; rr5 02:39 BP 144 / 79; Pulse 76; Resp 17; Pulse Ox 99% ; rr5 04:00 BP 131 / 70; Pulse 70; Resp 19; Pulse Ox 99% ; rr5 ED Course: 00:14 Patient arrived in ED. cl3 00:20 Darren Castañeda MD is Attending Physician. mh7 00:25 Arm band placed on. sg 00:28 Triage completed. sg 00:28 Shelly Antoine MD is Private Physician. sg 00:28 Neal Jimenez RN is Primary Nurse. rr5 00:37 Patient has correct armband on for positive identification. Bed in low position. Call rr5 light in reach. Pulse ox on. NIBP on. 03:44 US Extremity Venous Unilateral Ltd In Process Unspecified. EDMS 04:14 No provider procedures requiring assistance completed. Patient did not have IV access rr5 during this emergency room visit. Administered Medications: 01:02 Drug: morphine 4 mg {Note: rass 0.} Route: IM; Site: left gluteus; rr5 02:00 Follow up: Response: No adverse reaction; RASS: Alert and Calm (0) rr5 Outcome: 03:57 Discharge ordered by . mh7 04:14 Discharged to home ambulatory. rr5 04:14 Condition: stable 04:14 Discharge instructions given to patient, Instructed on discharge instructions, follow up and referral plans. Demonstrated understanding of instructions, follow-up care. 04:15 Patient left the ED. rr5 Signatures: Dispatcher [employer] EDDC Darvin Patel RN RN Neal Jimenez RN RN rr5 Traci Garcia 3 Darren Castañeda MD MD 7 Corrections: (The following items were deleted from the chart) 00:36 00:35 BP 151 / 78; Pulse 18bpm; Resp 18bpm; Spontaneous; Pulse Ox 95% RA; Temp 97.6F; sg Pain 6/10; sg
[2020-02-27 05:38] VITALS: TEMP 97.6
[2020-02-27 05:40] VITALS: O2SAT 99
[2020-02-27 05:42] VITALS: BP 131/70
--- NOTE | 2020-02-27 10:09 | RAD REPORT ---
EXAM DESCRIPTION: US - Extremity Venous Uni Ltd - 02/27/2020 3:44 am CLINICAL HISTORY The patient is 59 years old and is Female; PAIN Extremity Venous Uni Ltd TECHNIQUE: Real-time duplex ultrasound scan of the right lower extremity veins integrating B-mode tw o-dimensional vascular structure, Doppler spectral analysis, color flow Doppler imaging and compressi on. COMPARISON: No relevant prior studies available. FINDINGS: DEEP VEINS: Unremarkable. No DVT in the visualized common femoral, femoral, proximal d eep femoral or popliteal veins. The veins demonstrate normal color flow, are normally compressible, with normal phasic flow and/or augmentation response. SUPERFICIAL VEINS: Unremarkable. No thrombus in the visualized great saphenous vein. SOFT TISSUES: No acute findings. No popliteal cyst. IMPRESSION: Normal right lower extremity duplex venous ultrasound. Electronically signed by: Martha Breen MD 02/27/2020 6:06 AM ROUTE RIDER SUPERVISOR Due to temporary technical issues with the PACS/Fluency reporting system, reports are being signed by the in house radiologists without review as a courtesy to insure prompt reporting. The interpreting radiologist is fully responsible for the content of the report.
== END 2020-02-27 04:15 | disposition home or self-care (01) ==
LOC: ER 00:13
DX: M79.651 Pain in right thigh (principal); I10 Essential (primary) hypertension; E11.9 Type 2 diabetes mellitus without complications; Z79.82 Long term (current) use of aspirin; Z85.3 Personal history of malignant neoplasm of breast
CPT/HCPCS: 93971; 96372; 99284

== ENCOUNTER 2021-03-15 09:03 | Day surgery (SDC) | payer OTHER ==
[2021-03-15 08:52] LABS: Absolute Lymphocytes (CBC) 1.2 K/uL (0.7-4.9); Basophils % 0.4 % (0-1.3); Hematocrit 37.9 % (36.0-45.0); Lymphocytes % 20.7 % (15.3-44.8); MPV 7.1 fL (7.6-11.3); RBC Red Blood Cell Count 4.38 M/uL (3.86-4.86)
[2021-03-15 09:04] LABS: BUN Blood Urea Nitrogen 16 mg/dL (7-18); Bicarbonate 26 mmol/L (21-32); Glucose Level 145 mg/dL (74-106); Sodium Level 141 mmol/L (136-145)
--- NOTE | 2021-03-15 09:13 | RAD REPORT ---
EXAM DESCRIPTION: RAD - Chest Pa And Lat (2 Views) - 03/15/2021 9:02 am CLINICAL HISTORY: pre op pending port placement Chest pain. COMPARISON: Chest Pa And Lat (2 Views) dated 01/16/2020; Chest Single View dated 07/29/2019 FINDINGS: The lungs are clear. The heart is normal in size. No displaced fractures. Left axillary di ssection clips. IMPRESSION: No acute or concerning finding suspected.
[2021-03-15] MEDS ORDERED: NA CHLORIDE 0.9% 1,000 ML ONE (09:43)
[2021-03-15] MEDS ORDERED: CEFAZOLIN/NS 1gm 1 GM/50 ML BAG ONE (09:43)
[2021-03-15] MEDS ORDERED: FENTANYL CITR 100 MCG/2 ML ONE (10:23)
[2021-03-15] MEDS ORDERED: MIDAZOLAM HCL 2 MG/2 ML INJ ONE (10:24)
[2021-03-15] MEDS ORDERED: propofoL 200 MG/20 ML VIAL IV ONE (10:24)
[2021-03-15] MEDS ORDERED: LIDOCAINE 1% MPF 5 ML VIAL ONE (10:24)
[2021-03-15] MEDS ORDERED: KETOROLAC 30 MG/ML INJ ONE (11:05)
[2021-03-15] MEDS ORDERED: dexAMETHasone 10 MG/ML VIAL ONE (11:05)
[2021-03-15] MEDS ORDERED: ONDANSETRON 4 MG/2 ML VIAL ONE (11:10)
[2021-03-15] MEDS ORDERED: NS 0.9% VIAL 10 ML ONE (11:11)
[2021-03-15] MEDS ORDERED: Phenylephrine HCl 10 MG/ML 1 ML VIAL ONE (11:11)
[2021-03-15] MEDS ORDERED: Mastisol Adhesive Liq ONE (11:42)
--- NOTE | 2021-03-15 13:00 | RAD REPORT ---
EXAM DESCRIPTION: HANSChest Single View03/15/2021 12:51 pm CLINICAL HISTORY: Device placement/central venous catheter placement IMPRESSION: Central venous catheter with its tip in the superior vena cava No pneumothorax
[2021-03-15 13:10] VITALS: O2SAT 97
--- NOTE | 2021-03-15 13:32 | RAD REPORT ---
EXAM DESCRIPTION: RAD - Fluoroscopy <1 Hour - 03/15/2021 1:23 pm CLINICAL HISTORY: PORT A CATH PLACEMENT COMPARISON: Breast Core BX w/US Guidance dated 09/04/2020 FINDINGS: Fluoroscopic imaging is submitted from placement of a venous catheter. Details of the pro cedure not available. Fluoroscopy time: 0.6 minutes
[2021-03-15] MEDS ORDERED: HYDROCODONE/APAP 7.5/325 MG TAB ONE (13:35)
--- NOTE | 2021-03-15 13:36 | OP ---
Date of Procedure: 03/15/2021 Surgeon: Sher Lopez MD Motor Room Controller: Marlo Gómez, surgical technology instructor certified. Postoperative Diagnosis: Metastatic breast cancer. Postoperative Diagnosis: Metastatic breast cancer. Procedure: Placement of right IJ Port-A-Cath and interpretation of intraoperative fluoroscopy. Estimated Blood Loss: Minimal. Specimen: None. Findings: Normal anatomy. Anesthesia: General. Complications: None. Disposition: The patient tolerated the procedure in stable condition and taken to Recovery in good g eneral condition. Procedure In Detail: The patient was brought to the OR and placed in supine position. General anest hesia began. The patient was prepped and draped in the usual sterile fashion. Lidocaine 1% infiltra waylon locally. An 18-gauge needle used to access the right IJ vein and then guidewire passed. Positio n was confirmed with fluoroscopy. A 3 cm counter incision was made on the right anterior chest. Poc ket was created. Then, tunneling device was used to tunnel the catheter between the 2 wounds. Seldi nger technique was used. Tip of the catheter was placed in the SVC under fluoroscopy and then cathet er cut to appropriate size, attached to the Port-A-Cath device. Port-A-Cath device was attached to t he port and then secured to the subcutaneous tissue with 3-0 Vicryl. Port flushed with heparin and p acked with heparin with good blood flow. Then, 3-0 chromic used to approximate the subcutaneous tiss ue and close the skin. Sterile dressing applied. The patient was awakened and taken to Recovery in good general condition. Discharge Note: The patient will go to Day Surgery and home when stable after the chest x-ray is don e and is negative. Disposition: Home. Condition: Stable. Discharge Instructions: Resume home medications and diet. Activity as tolerated. No heavy lifting. Remove outer dressing in 2 days. Shower. Keep wound clean and dry. Keep Steri-Strips on at all t imes. Tylenol No.3 one tablet p.o. q.4 p.r.n. pain. Follow up in my office in 2 weeks. Call for ap pointment. Follow up in the cancer center. ELSA/CICI Voice ID: [id number] Report ID: [id number]
[2021-03-15 14:17] VITALS: BP 146/80; TEMP 97.6
== END 2021-03-15 14:35 | disposition home or self-care (01) ==
LOC: OR 09:03
PROVIDERS: ATTEND Surgery
PROC: 0JH60WZ Insertion of Totally Implantable Vascular Access Device into Chest Subcutaneous Tissue and Fascia, Open Approach (ICD-10-PCS; principal; 2021-03-15 10:45)
DX: C50.919 Malignant neoplasm of unspecified site of unspecified female breast (principal); Z20.822 Contact with and (suspected) exposure to COVID-19
CPT/HCPCS: 85025; 80048; 36415; 71045; 71046; 36561; U0003; J2704; J2370; J2250; J3010; J1100; J0690; J7030; J2405; C1788; 76000

== ENCOUNTER 2021-04-08 07:55 | Day surgery (SDC) | payer OTHER ==
[2021-04-08] MEDS ORDERED: NA CHLORIDE 0.9% 1,000 ML ONE (08:32)
[2021-04-08] MEDS ORDERED: CEFAZOLIN/NS 1gm 1 GM/50 ML BAG ONE (08:32)
[2021-04-08] MEDS ORDERED: BUPIVACAINE 0.5% PF 10 ML VIAL ONE (09:47)
[2021-04-08] MEDS ORDERED: LIDOCAINE 2% MPF 5 ML VIAL ONE (10:09)
[2021-04-08] MEDS ORDERED: FENTANYL CITR 100 MCG/2 ML ONE (10:09)
[2021-04-08] MEDS ORDERED: MIDAZOLAM HCL 2 MG/2 ML INJ ONE (10:09)
[2021-04-08] MEDS ORDERED: propofoL 200 MG/20 ML VIAL IV ONE (10:09)
[2021-04-08] MEDS ORDERED: HYDROCODONE/APAP 7.5/325 MG TAB ONE (11:33)
--- NOTE | 2021-04-08 12:00 | OP ---
Date of Procedure: 04/08/2021 Surgeon: Sher Lopez MD Centrifugal Extractor Operator: RIZWAN Snider. Preoperative Diagnosis: Breast cancer and status post Port-A-Cath placement. Postoperative Diagnosis: Breast cancer. Procedure: Removal of right chest Port-A-Cath. Estimated Blood Loss: Minimal. Specimen: Port-A-Cath device and culture and sensitivity. Findings: As above. Anesthesia: General. Complications: None. Disposition: The patient tolerated the procedure well, in stable condition, and taken to Recovery in good general condition. Procedure In Detail: The patient was brought to the OR and placed in supine position. General anest hesia begun. The patient was prepped and draped in usual sterile fashion. Marcaine 0.5% was infiltr ated locally. A 15-blade was used to open the wound with a 3 cm incision. Subcutaneous tissue divid ed. Port device identified and freed from the surrounding tissue with sharp blunt dissection. Cultu res done of the wound although there was no padma purulence. There was some tissue that was necrotic . The patient is immunocompromised and that is why the wound had not healed. Subsequently, port sen t to Pathology for identification. Wound irrigated. Bleeding controlled with cautery and then, 3-0 chromic used to approximate subcutaneous tissue and 4-0 nylon used to close the skin. Sterile dressi ng applied. The patient awakened and taken to Recovery in good general condition. Discharge Note: The patient will go to Day Surgery and home when stable. Disposition: Home. Condition: Stable. Discharge Instructions: Resume home medications and diet. Activity as tolerated. No heavy lifting. Remove outer dressing in two days. Shower. Keep wound clean and dry. Follow up in my office in t wo weeks. Call for appointment. The patient has antibiotics and pain medicine at home. /MODL Voice ID: [id number] Report ID: [id number]
[2021-04-08 12:55] VITALS: BP 134/74; TEMP 96.8; O2SAT 91
== END 2021-04-08 12:50 | disposition home or self-care (01) ==
LOC: OR 07:55
PROVIDERS: ATTEND Surgery
PROC: 0JPT0WZ Removal of Totally Implantable Vascular Access Device from Trunk Subcutaneous Tissue and Fascia, Open Approach (ICD-10-PCS; principal; 2021-04-08 10:15)
DX: Z45.2 Encounter for adjustment and management of vascular access device (principal); Z85.3 Personal history of malignant neoplasm of breast; Z90.13 Acquired absence of bilateral breasts and nipples; F17.210 Nicotine dependence, cigarettes, uncomplicated; Z20.822 Contact with and (suspected) exposure to COVID-19
CPT/HCPCS: 87070; 87205; 82947 ×2; 88300; 36590; U0003; J2704; J2250; J3010; J0690; J7030

== ENCOUNTER 2021-08-02 07:59 | Emergency (ER) | payer OTHER, SELFPAY ==
--- OUTSIDE RECORDS SUMMARY | 2021-08-02 08:22 | XMS REPORT | Continuity of Care Document ---
:1960 Author Organization Formerly [facility] t Address [address] [place] [address] Care Team Providers Name Role Phone TANYA GEORGES Primary Care Physician Unavailable Desmond Georges Attending Clinician Unavailable Arash Attending Clinician Unavailable GRISELDA BALDERAS Attending Clinician Unavailable TORI ZHENG Attending Clinician Unavailable GRISELDA BALDERAS Attending Clinician Unavailable Griselda Balderas MD Attending Clinician Cheri CAMPBELL Attending Clinician Sancho CAMPBELL Attending Clinician SHAY Attending Clinician Unavailable JANET Attending Clinician Unavailable HUGO Attending Clinician Unavailable GRISELDA BALDERAS Admitting Clinician Unavailable Payers Payer Name Policy Type Policy Number Effective Date Expiration Date S nilda BOTELLO DUAL [id number] COMPLETE SNP [facility] MEDICARE PART A [id number] \\T\\ B - MEDICARE AM[place]ETTER - [id number] [facility]/MEDICARE [id number] 2020 COMPLETE 00:00:00 MEDICARE A B [id number] 2020 00:00:00 Problems Condition Condition Condition Status Onset Resolution Last Treating Co mments Source Name Details Category Date Date Treatment Clinician Date High risk High risk Disease Active [facility] [facility] medication medication 11-26 Co l[facility] use use 00:00: of 00 Medicin e Chemothera Chemothera Disease Active [facility] py py 11-26 [facility] follow-up follow-up 00:00: of examinatio examinatio 00 Me dicin n n e Pre-operat Pre-operat Disease Active [facility] p[facility]ima chris chris 11-26 [facility] cardiovasc cardiovasc 00:00: of ular ular 00 Medicin examinatio examinatio e n n History of History of Disease Active [facility] p[facility]ima CVA CVA 11-26 [facility] (cerebrova (cerebrova 00:00: of scular scular 00 Medicin accident) accident) e Anxiety Anxiety Disease Active [facility] 09-25 Arabi 00:00: of 00 Medicin e Abnormal Abnormal Disease Active [facility] mammogram mammogram 09-25 Beatrice ege 00:00: of 00 Medicin e Breast Breast Disease Active [facility] pain, left pain, left 6-04 Co llege 00:00: of 00 Medicin e Hyperglyce Hyperglyce Disease Active [facility] p[facility]ima ivette ivette 09-25 [facility] 00:00: of 00 Medicin e Stroke, Stroke, Disease Active [facility] acute, acute, 09-25 [facility] thrombotic thrombotic 00:00: of (HCCode) (HCCode) 00 Medici n e Uncontroll Uncontroll Disease Active [facility] 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 09-25 [facility] diabetes diabetes 00:00: of mellitus mellitus 00 Medici n with with e hyperglyce hyperglyce ivette ivette (HCCode) (HCCode) Breast Breast Disease Active [facility] pain, left pain, left 6-04 Co llege 00:00: of 00 Medicin e Glaucoma Glaucoma Disease Active [facility] 09-25 [facility] 00:00: of 00 Medicin e History of History of Disease Active [facility] malignant malignant 09-25 [facility] neoplasm neoplasm 00:00: of of breast of breast 00 Medi abraham e Hypertensi Hypertensi Disease Active [facility] on on 09-25 College 00:00: of 00 Medicin e Obesity Obesity Disease Active [facility] (BMI (BMI 09-25 College 30-39.9) 30-39.9) 00:00: of 00 Medicin e Nodule of Nodule of Disease Active [facility] finger of finger of 09-25 [facility] ege both hands both hands 00:00: of 00 Medicin e CHEMOTHERA Diagnosis Active 2020-01-20 [facility] PY 9- 12:08:00 l COMPLETED 00:00: Jah CHEMOTHERA 00 PY COMPLETED Active [facility]10[facility]2020 [facility] Breast Disease Active [facility] cancer cancer 06-30 [facility] (HCCode) (HCCode) 00:00: of 00 Medicin e BREAST Diagnosis Active 2019-07-09 [facility] CANCER 06-30 14:53:00 l BREAST 00:00: [place] CANCER 00 Active 07/01/2019 [facility] [place] SCIATICA Diagnosis Active 2016-042017-02-14 M emoria TYPE PAIN 0-24 14:00:00 l SCIATICA 00:00: John n TYPE PAIN 00 Active 02/14/2017 [facility] BOILS Diagnosis Active 2016-09-07 Mem oria 5-16 00:23:00 l BOILS 00:00: [place] 00 Active 09/06/2016 [facility] [place] ABDOMINAL Diagnosis Active 2014-042015-05-05 [facility] PAIN 2-04 10:43:00 l 00:00: [place] ABDOMINAL 00 PAIN Active 03/27/2015 [facility] COPD COPD Disease Active 2012-04 [facility] (chronic (chronic 05-12 Colleg e obstructiv obstructiv 00:00: of e e 00 Medicin pulmonary pulmonary e disease) disease) (HCCode) (HCCode) COPD Diagnosis Active 2012-042013-03-15 [facility] 1-19 08:29:00 l COPD 00:00: Jah 00 Active 03/12/2013 [facility] Cyst of Problem Resolve 2017-02-17 [facility] ovary d 03:03:15 l (disorder) Cyst of Her nix ovary (disorder) Resolved Problem 02/17/2017 [facility], [facility] History of Past Illness Condition Condition Condition Status Onset Resolution Last Treating Co mments Source Name Details Category Date Date Treatment Clinician Date Low back Problem 2016-042017-02-17 2017-02-17 [facility] pain 0-24 03:03:15 03:03:15 l Low back 05:00: John n pain 00 02/14/2017 02/17/2017 [facility] in Problem 2016-042017-02-17 2017-02-17 [facility] left hip 0-24 03:03:15 03:03:15 l Pain in 05:00: Jah left hip 00 7 02/17/2017 [place] Sciatica, Problem 2016-042017-02-17 2017-02-17 [facility] unspecifie 0-24 03:03:15 03:03:15 l d side 05:00: [place] Sciatica, 00 unspecifie d side 02/14/2017 02/17/2017 [facility] Cutaneous Problem 2016-09-10 2016-09-10 [facility] abscess, 09-07 03:38:26 03:38:26 l unspecifie 05:00: John n d Cutaneous 00 abscess, unspecifie d 09/07/2016 09/10/2016 [place] Discharge Problem 2014-042015-03-31 2015-03-31 [facility] Diagnosis: 2-05 02:33:03 02:33:03 l Morbid 06:00: Jah obesity Discharge 00 Diagnosis: Morbid obesity 03/28/2015 03/31/2015 [place] Discharge Problem 2014-042015-03-31 2015-03-31 [facility] Diagnosis: 2-05 02:33:03 02:33:03 l Pain, 06:00: Jah abdominal, Discharge 00 nonspecifi Diagnosis: c Pain, abdominal, nonspecifi c 03/28/2015 03/31/2015 [facility] Allergies, Adverse Reactions, Alerts Allergy Allergy Status Severity Reaction(s) Onset Inactive Treating Comm ents Source Name Type Date Date Clinician NO KNOWN Allergy Active [facility] Social History Social Habit Start Date Stop Date Quantity Comments Source History of Cigarette Smoker [facility] Rene luo tobacco use of Medicine Exposure to Not sure [place] mera SARS-CoV-2 of Medicine (event) Alcohol intake 2021-07-02 2021-07-02 Ex-drinker [facility] legede 00:00:00 00:00:00 (finding) of Medicine Tobacco use and 2020-09-25 2020-09-25 Smokeless tobacco [facility] exposure 00:00:00 00:00:00 non-user of Medicine Social History 2015-03-28 2015-03-28 Zeferino blount 06:13:28 06:13:28 [birth year] [facility] Deandre greer 00:00:00 00:00:00 of Medicine Smoking Status Start Date Stop Date Source Smokes tobacco daily 2020-09-25 00:00:00 [facility] Medications Ordered Filled Start Stop Current Ordering Indication Dosage Frequency Signature Comments Components Source Medication Medication Date Date Medication? Clinician (SIG) Name Name [facility]ets Yes [facility] 13:03: Lancet of FASTCLIX 17 Drum Medicin LANCET) KIT e gabapentin Yes gabapentin [facility] (NEURONTIN) 11 600 mg Colleg e 600 MG 13:03: tablet of tablet 17 Medicin e hydrocodone Yes hydrocodon [facility] -acetaminop 07-02 e 10 College hen (NORCO) 13:03: mg-acetami of 10-325 MG 17 nophen 325 Medi abraham per tablet mg tablet e Budesonide- Yes 1 puffs [place] Formoterol 07-02 [facility] Fumarate 13:03: of 160-4.5 17 Medicin MCG/ACT e AERO enalapril Yes enalapril [place] (VASOTEC) 07-02 maleate 10 [facility] 10 MG 13:03: mg tablet of tablet 17 Medicin e metoprolol Yes metoprolol [facility] (LOPRESSOR) 11 tartrate [facility] 25 MG 13:03: 25 mg of tablet 17 tablet Medicin e ondansetron Yes ondansetro [facility] (ZOFRAN) 4 3-11 n HCl 4 mg Col lege MG tablet 13:03: tablet of 17 Medicin e Lancets Yes Maricel hall Misc. 9-03 [facility] (ACCU-CHEK 11:56: [facility] of FASTCLIX 36 Drum Medicin LANCET) KIT e gabapentin Yes gabapentin [facility] (NEURONTIN) 12-25 600 mg Colleg e 600 MG 11:56: tablet of tablet 36 Medicin e hydrocodone Yes hydrocodon [facility] -acetaminop 12-25 e 10 [facility]) 11:56: mg-acetami of 10-325 MG 36 nophen 325 Medi abraham per tablet mg tablet e Budesonide- Yes 1 puffs [place] Formoterol 12-25 [facility] Fumarate 11:56: of (SYMBICORT) 36 Medicin 160-4.5 e MCG/ACT AERO enalapril Yes enalapril [place] (VASOTEC) 12-25 maleate 10 [facility] ege 10 MG 11:56: mg tablet of tablet 36 Medicin e metoprolol Yes metoprolol [facility] (LOPRESSOR) 12-25 tartrate [facility] 25 MG 11:56: 25 mg of tablet 36 tablet Medicin e ondansetron Yes ondansetro [facility] (ZOFRAN) 4 12-25 n HCl 4 mg Col lege MG tablet 11:56: tablet of 36 Medicin e Lancets Yes Accu-Chek [facility] r Misc. 12-25 Fastclix [facility] (ACCU-CHEK 11:56: [facility] of FASTCLIX 36 Drum Medicin LANCET) KIT e gabapentin Yes gabapentin [facility] (NEURONTIN) 12-25 600 mg Colleg e 600 MG 11:56: tablet of tablet 36 Medicin e hydrocodone Yes hydrocodon [facility] -acetaminop 12-25 e 10 [facility]) 11:56: mg-acetami of 10-325 MG 36 nophen 325 Medi abraham per tablet mg tablet e Budesonide- Yes 1 puffs [place] Formoterol 12-25 [facility] Fumarate 11:56: of (SYMBICORT) 36 Medicin 160-4.5 e MCG/ACT AERO enalapril Yes enalapril [place] (VASOTEC) 12-25 maleate 10 [facility] 10 MG 11:56: mg tablet of tablet 36 Medicin e metoprolol Yes metoprolol [facility] (LOPRESSOR) 12-25 tartrate [facility] 25 MG 11:56: 25 mg of tablet 36 tablet Medicin e ondansetron Yes ondansetro [facility] (ZOFRAN) 4 9-03 n HCl 4 mg Col lege MG tablet 11:56: tablet of 36 Medicin e Lancets Yes Accu-Chek [facility]. [facility] 11:56: [facility] of FASTCLIX 36 Drum Medicin LANCET) KIT e gabapentin Yes gabapentin [facility] (NEURONTIN) 12-25 600 mg Colleg e 600 MG 11:56: tablet of tablet 36 Medicin e hydrocodone Yes hydrocodon [facility] -acetaminop 12-25 e 10 Arabi hen (G[place]ENBERG) 11:56: mg-acetami of 10-325 MG 36 nophen 325 Medi abraham per tablet mg tablet e Budesonide- Yes 1 puffs [place] Formoterol 12-25 College Fumarate 11:56: of (SYMBICORT) 36 Medicin 160-4.5 e MCG/ACT AERO enalapril Yes enalapril [place] (VASOTEC) 12-25 maleate 10 [facility] 10 MG 11:56: mg tablet of tablet 36 Medicin e metoprolol Yes metoprolol [facility] (LOPRESSOR) 12-25 tartrate [facility] 25 MG 11:56: 25 mg of tablet 36 tablet Medicin e ondansetron Yes ondansetro [facility] (ZOFRAN) 4 9- n HCl 4 mg Col lege MG tablet 11:56: tablet of 36 Medicin e [facility]ets Yes [facility] 12-25 Fast[facility] (ACCU-CHEK 11:56: [facility] of FASTCLIX 36 Drum Medicin LANCET) KIT e gabapentin Yes gabapentin [facility] (NEURONTIN) 12-25 600 mg Colleg e 600 MG 11:56: tablet of tablet 36 Medicin e hydrocodone Yes hydrocodon [facility] -acetaminop 12-25 e 10 [facility]i hen ([employer]) 11:56: mg-acetami of 10-325 MG 36 nophen 325 Medi abraham per tablet mg tablet e Budesonide- Yes 1 puffs [place] Formoterol 12-25 [facility] Fumarate 11:56: of (SYMBICORT) 36 Medicin 160-4.5 e MCG/ACT AERO enalapril Yes enalapril [place] (VASOTEC) 12-25 maleate 10 [facility] 10 MG 11:56: mg tablet of tablet 36 Medicin e metoprolol Yes metoprolol [facility] (LOPRESSOR) 12-25 tartrate [facility] 25 MG 11:56: 25 mg of tablet 36 tablet Medicin e ondansetron Yes ondansetro [facility] (ZOFRAN) 4 12-25 n HCl 4 mg Col lege MG tablet 11:56: tablet of 36 Medicin e Lancets Yes Accu-Chek [facility]. 12-18 [facility] (ACCU-CHEK 13:19: [facility] of FASTCLIX 20 Drum Medicin LANCET) KIT e gabapentin Yes gabapentin [facility] (NEURONTIN) 12-18 600 mg Colleg e 600 MG 13:19: tablet of tablet 20 Medicin e hydrocodone Yes hydrocodon [facility] -acetaminop 12-18 e 10 College hen (NORCO) 13:19: mg-acetami of 10-325 MG 20 nophen 325 Medi abraham per tablet mg tablet e Budesonide- Yes 1 puffs [place] Formoterol 12-18 [facility] Fumarate 13:19: of (SYMBICORT) 20 Medicin 160-4.5 e MCG/ACT AERO enalapril Yes enalapril [place] (VASOTEC) 12-18 maleate 10 [facility] 10 MG 13:19: mg tablet of tablet 20 Medicin e metoprolol Yes metoprolol [facility] (LOPRESSOR) 12-18 tartrate [facility] 25 MG 13:19: 25 mg of tablet 20 tablet Medicin e ondansetron Yes ondansetro [facility] (ZOFRAN) 4 12-18 n HCl 4 mg Col lege MG tablet 13:19: tablet of 20 Medicin e tramadol Yes 1{tbl} Take 1 [facility] (ULTRAM) 50 8-20 Tablet by Col lege MG tablet 00:00: mouth of 00 every 6 Medicin hours as e needed. tramadol Yes 1{tbl} Take 1 [facility] (ULTRAM) 50 8-20 Tablet by Col lege MG tablet 00:00: mouth of 00 every 6 Medicin hours as e needed. tramadol Yes 1{tbl} Take 1 [facility] (ULTRAM) 50 8-20 Tablet by Col lege MG tablet 00:00: mouth of 00 every 6 Medicin hours as e needed. tramadol Yes 1{tbl} Take 1 [facility] (ULTRAM) 50 8-20 Tablet by Col lege MG tablet 00:00: mouth of 00 every 6 Medicin hours as e needed. tramadol Yes 1{tbl} Take 1 [facility] (ULTRAM) 50 8-20 Tablet by Col lege MG tablet 00:00: mouth of 00 every 6 Medicin hours as e needed. tramadol Yes 1{tbl} Take 1 [facility] (ULTRAM) 50 8-20 Tablet by Col lege MG tablet 00:00: mouth of 00 every 6 Medicin hours as e needed. amlodipine Yes [facility] (NORVASC) 7-22 College 10 MG 00:00: of tablet 00 Medicin e losartan 2020-0 Yes [facility] (COZAAR) 50 7-22 College MG tablet 00:00: of 00 Medicin e metformin 2020-0 Yes [facility] (GLUCOPHAGE 722 Arabi ) 1000 MG 00:00: of tablet 00 Medicin e amlodipine 2020-0 Yes [facility] (NORVASC) 7-22 College 10 MG 00:00: of tablet 00 Medicin e losartan 2020-0 Yes [facility] (COZAAR) 50 7-22 College MG tablet 00:00: of 00 Medicin e metformin 2020-0 Yes [facility] (GLUCOPHAGE 722 College ) 1000 MG 00:00: of tablet 00 Medicin e amlodipine 2020-0 Yes [facility] (NORVASC) 7-22 College 10 MG 00:00: of tablet 00 Medicin e losartan 2020-0 Yes [facility] (COZAAR) 50 7-22 College MG tablet 00:00: of 00 Medicin e metformin 2020-0 Yes [facility] (GLUCOPHAGE 22 College ) 1000 MG 00:00: of tablet 00 Medicin e amlodipine 2020-0 Yes [facility] (NORVASC) 7-22 College 10 MG 00:00: of tablet 00 Medicin e losartan 2020-0 Yes [facility] (COZAAR) 50 7-22 College MG tablet 00:00: of 00 Medicin e metformin 2020-0 Yes [facility] (GLUCOPHAGE 22 Arabi ) 1000 MG 00:00: of tablet 00 Medicin e amlodipine 2020-0 Yes [facility] (NORVASC) 722 College 10 MG 00:00: of tablet 00 Medicin e losartan 2020-0 Yes [facility] (COZAAR) 50 7-22 College MG tablet 00:00: of 00 Medicin e metformin 2020-0 Yes [facility] (GLUCOPHAGE 22 Arabi ) 1000 MG 00:00: of tablet 00 Medicin e amlodipine 2020-0 Yes [facility] (NORVAS) 11-12 College 10 MG 00:00: of tablet 00 Medicin e losartan 2020-0 Yes [facility] (COZAAR) 50 7-22 College MG tablet 00:00: of 00 Medicin e metformin 2020-0 Yes [facility] (GLUCOPHAGE 11-12 Arabi ) 1000 MG 00:00: of tablet 00 Medicin e Lancets 2020-0 Yes Accu-Chek [facility] Misc. 11-06 Fastclix [facility] (ACCU-CHEK 11:58: Lancet of FASTCLIX 26 Drum Medicin LANCET) KIT e gabapentin 0 Yes gabapentin [facility] (NEURONTIN) 11-06 600 mg Colleg e 600 MG 11:58: tablet of tablet 26 Medicin e hydrocodone 0 Yes hydrocodon [facility] -acetaminop 16 e 10 College hen (NORCO) 11:58: mg-acetami of 10-325 MG 26 nophen 325 Medi abraham per tablet mg tablet e tramadol 0 Yes [facility] (ULTRAM) 50 5-25 College MG tablet 00:00: of 00 Medicin e tramadol 0 Yes [facility] (ULTRAM) 50 5-25 College MG tablet 00:00: of 00 Medicin e tramadol 0 Yes [facility] (ULTRAM) 50 5-25 College MG tablet 00:00: of 00 Medicin e tramadol 0 Yes [facility] (ULTRAM) 50 5-25 College MG tablet 00:00: of 00 Medicin e tramadol 0 Yes [facility] (ULTRAM) 50 5-25 College MG tablet 00:00: of 00 Medicin e tramadol 0 Yes [facility] (ULTRAM) 50 5-25 College MG tablet 00:00: of 00 Medicin e tramadol 0 Yes [facility] (ULTRAM) 50 5-25 College MG tablet 00:00: of 00 Medicin e amlodipine 0 Yes [facility] ([facility]) 5-08 College 10 MG 00:00: of tablet 00 Medicin e amlodipine 0 Yes [facility] ([facility]) 5-08 College 10 MG 00:00: of tablet 00 Medicin e amlodipine 0 Yes [facility]) 5-08 College 10 MG 00:00: of tablet 00 Medicin e amlodipine 0 Yes [facility] ([facility]) 5-08 College 10 MG 00:00: of tablet 00 Medicin e amlodipine 0 Yes [facility] ([facility]) 5-08 College 10 MG 00:00: of tablet 00 Medicin e amlodipine 0 Yes [facility] ([facility]) 5-08 College 10 MG 00:00: of tablet 00 Medicin e Glimepiride Glimepiride 2019-0 Yes [facility] [address] [facility] breakfast [facility] 00 or the l first main Outpati meal of ent the day Clinics Jania Januvia 2019-0 Yes [facility] [address] [facility] l Outpati ent Clinics Aspirin Aspirin 2019-0 Yes [facility] (OTC) [address] [facility] 4[facility]22 [facility] tablet [facility]: [facility] l Outpati ent Clinics BusPIRone BusPIRone 2019-0 Yes [facility] [address] [facility] [address] HCl HCl 4-22 [facility] as needed [facility] - 00:[facility]: for [facility] 00 anxiety l Outpati ent Clinics Atorvastati Atorvastati 2019-0 Yes Shelly [address] [facility] n Calcium n Calcium 4-22 [facility] in evening [facility] - 00:[facility]: [facility] 00 l Outpati ent Clinics Aspirin 81 2020-0 Yes (OTC) 1 [facility] MG tablet 4-08 tablet College 00:00: of 00 Medicin e Aspirin 81 2020-0 Yes (OTC) 1 [facility] MG tablet 4-08 tablet College 00:00: of 00 Medicin e Aspirin 81 2020-0 Yes (OTC) 1 [facility] MG tablet 4-08 tablet College 00:00: of 00 Medicin e Aspirin 81 2020-0 Yes (OTC) 1 [facility] MG tablet 4-08 tablet College 00:00: of 00 Medicin e Aspirin 81 2020-0 Yes (OTC) 1 [facility] MG tablet 4-08 tablet College 00:00: of 00 Medicin e Aspirin 81 2020-0 Yes (OTC) 1 [facility] MG tablet 4-08 tablet College 00:00: of 00 Medicin e Aspirin 81 2020-0 Yes (OTC) 1 [facility] MG tablet 4-08 tablet College 00:00: of 00 Medicin e Blood Blood 2020-0 Yes [facility] as [facility] Glucose Glucose 3-18 [facility] directed [facility] - Monitor Monitor 00:00: (DISPENSE Me moria 00 BLOOD l GLUCOSE Outpati MONITOR ent FORMULARY Clinics TO INSURANCE) Lancets Lancets 2020-0 Yes [facility] as [facility] - 00:[facility]: (dispense [facility] 00 lancets l formulary Outpati to ent insurance) Clinics Glucose Glucose 2020-0 Yes [facility] as [facility] testing testing 3-18 [facility] - strips strips 00:00: (dispense Thaddeus mekhi 00 testing l strips Outpati formulary ent to Clinics insurance) Metformin Metformin 2020-0 Yes [facility]ly 1/[address] HCl HCl 3-18 [facility] tablet [facility] - 00:[facility]: with a [facility] 00 meal l Outpati ent Clinics metformin 2020-0 Yes metformin [place] [facility] (GLUCOPHAGE 3-18 1,000 mg [facility] ) 1000 MG 00:00: tablet of tablet 00 Medicin e metformin 2020-0 Yes metformin [place] (GLUCOPHAGE 3-18 1,000 mg [facility]rice ege ) 1000 MG 00:00: tablet of tablet 00 Medicin e Blood 2020-0 Yes as [facility] Glucose 3-18 directed College Monitor 00:00: (DISPENSE of Software 00 BLOOD Medicin ALICIA GLUCOSE e MONITOR FORMULARY TO INSURANCE) metformin 2020-0 Yes metformin [place] (GLUCOPHAGE 3-18 1,000 mg [facility] ) 1000 MG 00:00: tablet of tablet 00 Medicin e Blood 2020-0 Yes as [facility] Glucose 3-18 directed College Monitor 00:00: (DISPENSE of Software 00 BLOOD Medicin ALICIA GLUCOSE e MONITOR FORMULARY TO INSURANCE) metformin 2020-0 Yes metformin [place] (GLUCOPHAGE 3-18 1,000 mg [facility] ) 1000 MG 00:00: tablet of tablet 00 Medicin e Blood 2020-0 Yes as [facility] Glucose 3-18 directed College Monitor 00:00: (DISPENSE of Software 00 BLOOD Medicin ALICIA GLUCOSE e MONITOR FORMULARY TO INSURANCE) metformin 2020-0 Yes metformin [place] (GLUCOPHAGE 3-18 1,000 mg [facility] ) 1000 MG 00:00: tablet of tablet 00 Medicin e Blood 2020-0 Yes as [place] Glucose 3-18 directed College Monitor 00:00: (DISPENSE of Software 00 BLOOD Medicin ALICIA GLUCOSE e MONITOR FORMULARY TO INSURANCE) metformin 2020-0 Yes metformin [place] (GLUCOPHAGE 3-18 1,000 mg [facility] ) 1000 MG 00:00: tablet of tablet 00 Medicin e Blood 2020-0 Yes as [facility] Glucose 3-18 directed College Monitor 00:00: (DISPENSE of Software 00 BLOOD Medicin ALICIA GLUCOSE e MONITOR FORMULARY TO INSURANCE) metformin 2020-0 Yes metformin [place] (GLUCOPHAGE 3-18 1,000 mg [facility] ) 1000 MG 00:00: tablet of tablet 00 Medicin e Blood 2020-0 Yes as [place] Glucose 3-18 directed College Monitor 00:00: (DISPENSE of Software 00 BLOOD Medicin ALICIA GLUCOSE e MONITOR FORMULARY TO INSURANCE) losartan 25 2020-0 Yes 25 mg = 1 M emoria mg oral 3-16 tab, PO, l tablet 14:26: Daily, # [place] 00 30 tab, 0 Refill(s) Acetaminoph 2020-0 Yes 1 tab, PO, Memoria en 300 MG / 3-16 Q6H, PRN l Codeine 14:26: Pain, # 28 Herm griselda Phosphate 00 tab, 0 30 MG Oral Refill(s) Tablet [Tylenol with Codeine #3] losartan 25 2019-0 Yes 25 mg = 1 M emoria mg oral 3-16 tab, PO, l tablet 14:26: Daily, # Jah 00 30 tab, 0 Refill(s) losartan Yes 25 mg = 1 M emoria mg oral 3-16 tab, PO, l tablet 14:26: Daily, # Jah 00 30 tab, 0 Refill(s) Acetaminoph 2020-0 Yes 1 tab, PO, Memoria en 300 MG / 3-16 Q6H, PRN l Codeine 14:26: Pain, # 28 Herm griselda Phosphate 00 tab, 0 30 MG Oral Refill(s) Tablet [Tylenol with Codeine #3] Acetaminoph 2020-0 Yes 1 tab, PO, [facility]oria en 300 MG / 3-16 Q6H, PRN l Codeine 14:26: Pain, # 28 Herm griselda Phosphate 00 tab, 0 30 MG Oral Refill(s) Tablet [Tylenol with Codeine #3] losartan Yes 25 mg = 1 M emoria mg oral 3-16 tab, PO, l tablet 14:26: Daily, # Jah 00 30 tab, 0 Refill(s) Acetaminoph 2020-0 Yes 1 tab, PO, Memoria en 300 MG / 3-16 Q6H, PRN l Codeine 14:26: Pain, # 28 Herm griselda Phosphate 00 tab, 0 30 MG Oral Refill(s) Tablet [Tylenol with Codeine #3] losartan Yes 25 mg = 1 M emoria mg oral 3-16 tab, PO, l tablet 14:26: Daily, # [place] 00 30 tab, 0 Refill(s) Acetaminoph 2020-0 Yes 1 tab, PO, Memoria en 300 MG / 3-16 Q6H, PRN l Codeine 14:26: Pain, # 28 Herm griselda Phosphate 00 tab, 0 30 MG Oral Refill(s) Tablet [Tylenol with Codeine #3] losartan Yes 25 mg = 1 M emoria mg oral 3-16 tab, PO, l tablet 14:26: Daily, # [place] 00 30 tab, 0 Refill(s) Acetaminoph 2020-0 Yes 1 tab, PO, Memoria en 300 MG / 3-16 Q6H, PRN l Codeine 14:26: Pain, # 28 Herm griselda Phosphate 00 tab, 0 30 MG Oral Refill(s) Tablet [Tylenol with Codeine #3] acetaminoph 2020-0 Yes 1 tab, PO, [facility] en-codeine 3-16 Q6H, PRN Colle ge (TYLENOL 00:00: Pain, # 28 of #3) 300-30 00 tab, 0 Medicin MG per Refill(s) e tablet acetaminoph 2020-0 Yes 1 tab, PO, [facility] en-codeine 3-16 Q6H, PRN Colle ge (TYLENOL 00:00: Pain, # 28 of #3) 300-30 00 tab, 0 Medicin MG per Refill(s) e tablet acetaminoph 2020-0 Yes 1 tab, PO, [facility] en-codeine 3-16 Q6H, PRN Colle ge (TYLENOL 00:00: Pain, # 28 of #3) 300-30 00 tab, 0 Medicin MG per Refill(s) e tablet acetaminoph 2020-0 Yes 1 tab, PO, [facility] en-codeine 3-16 Q6H, PRN Colle ge (TYLENOL 00:00: Pain, # 28 of #3) 300-30 00 tab, 0 Medicin MG per Refill(s) e tablet acetaminoph 2020-0 Yes 1 tab, PO, [facility] en-codeine 3-16 Q6H, PRN Colle ge (TYLENOL 00:00: Pain, # 28 of #3) 300-30 00 tab, 0 Medicin MG per Refill(s) e tablet acetaminoph 2020-0 Yes 1 tab, PO, [facility] en-codeine 3-16 Q6H, PRN Colle ge (TYLENOL 00:00: Pain, # 28 of #3) 300-30 00 tab, 0 Medicin MG per Refill(s) e tablet acetaminoph 2020-0 Yes 1 tab, PO, [facility] en-codeine 3-16 Q6H, PRN Colle ge (TYLENOL 00:00: Pain, # 28 of #3) 300-30 00 tab, 0 Medicin MG per Refill(s) e tablet Losartan Losartan 2019-0 Yes Shelly 1/[address] [facility] Potassium Potassium 1-29 [facility] 2016-04 Yes 1 tab, PO, Memoria en 300 MG / 0-24 Q6H, PRN l Codeine 18:44: Pain, X 3 Fany nn Phosphate 00 day, # 12 30 MG Oral tab, 0 Tablet Refill(s) [Tylenol with Codeine #3] [facility] 2016-04 Yes 1 tab, PO, Memoria en 300 MG / 0-24 Q6H, PRN l Codeine 18:44: Pain, X 3 Fany nn Phosphate 00 day, # 12 30 MG Oral tab, 0 Tablet Refill(s) [Tylenol with Codeine #3] [facility] 2016-04 Yes 1 tab, PO, Memoria en 300 MG / 0-24 Q6H, PRN l Codeine 18:44: Pain, X 3 Fany nn Phosphate 00 day, # 12 30 MG Oral tab, 0 Tablet Refill(s) [Tylenol with Codeine #3] [facility] 2016-04 Yes 1 tab, PO, Memoria en 300 MG / 0-24 Q6H, PRN l Codeine 18:44: Pain, X 3 Fany nn Phosphate 00 day, # 12 30 MG Oral tab, 0 Tablet Refill(s) [Tylenol with Codeine #3] [facility] 2016-04 Yes 1 tab, PO, Memoria en 300 MG / 0-24 Q6H, PRN l Codeine 18:44: Pain, X 3 Fany nn Phosphate 00 day, # 12 30 MG Oral tab, 0 Tablet Refill(s) [Tylenol with Codeine #3] [facility] 2016-04 Yes 1 tab, PO, Memoria en 300 MG / 0-24 Q6H, PRN l Codeine 18:44: Pain, X 3 Fany nn Phosphate 00 day, # 12 30 MG Oral tab, 0 Tablet Refill(s) [Tylenol with Codeine #3] Cyclobenzap 2016-04 Yes 10 mg, PO, Memoria rine 0-24 TID, PRN l hydrochlori 18:43: Muscle Herm griselda de 10 MG 00 Spasm, X 5 Oral Tablet day, # 15 [Flexeril] tab, 0 Refill(s) Motrin 800 2016-04 Yes 800 mg = 1 M emoria mg oral 0-24 tab, PO, l tablet 18:43: Q8H, PRN Jah 00 Pain, Take with food, X 5 day, # 15 tab, 0 Refill(s) Cyclobenzap 2016-04 Yes 10 mg, PO, Memoria rine 0-24 TID, PRN l hydrochlori 18:43: Muscle Herm griselda de 10 MG 00 Spasm, X 5 Oral Tablet day, # 15 [Flexeril] tab, 0 Refill(s) Motrin 800 2016-04 Yes 800 mg = 1 M emoria mg oral 0-24 tab, PO, l tablet 18:43: Q8H, PRN [place] 00 Pain, Take with food, X 5 day, # 15 tab, 0 Refill(s) Cyclobenzap 2016-04 Yes 10 mg, PO, Memoria rine 0-24 TID, PRN l hydrochlori 18:43: Muscle Herm griselda de 10 MG 00 Spasm, X 5 Oral Tablet day, # 15 [Flexeril] tab, 0 Refill(s) Motrin 800 2016-04 Yes 800 mg = 1 M emoria mg oral 0-24 tab, PO, l tablet 18:43: Q8H, PRN [place] 00 Pain, Take with food, X 5 day, # 15 tab, 0 Refill(s) Cyclobenzap 2016-04 Yes 10 mg, PO, Memoria rine 0-24 TID, PRN l hydrochlori 18:43: Muscle Herm griselda de 10 MG 00 Spasm, X 5 Oral Tablet day, # 15 [Flexeril] tab, 0 Refill(s) Motrin 800 2016-04 Yes 800 mg = 1 M emoria mg oral 0-24 tab, PO, l tablet 18:43: Q8H, PRN Jah 00 Pain, Take with food, X 5 day, # 15 tab, 0 Refill(s) Cyclobenzap 2016-04 Yes 10 mg, PO, Memoria rine 0-24 TID, PRN l hydrochlori 18:43: Muscle Herm griselda de 10 MG 00 Spasm, X 5 Oral Tablet day, # 15 [Flexeril] tab, 0 Refill(s) Motrin 800 2016-04 Yes 800 mg = 1 M emoria mg oral 0-24 tab, PO, l tablet 18:43: Q8H, PRN Jah 00 Pain, Take with food, X 5 day, # 15 tab, 0 Refill(s) Cyclobenzap 2016-04 Yes 10 mg, PO, Memoria rine 0-24 TID, PRN l hydrochlori 18:43: Muscle Herm griselda de 10 MG 00 Spasm, X 5 Oral Tablet day, # 15 [Flexeril] tab, 0 Refill(s) Motrin 800 2016-04 Yes 800 mg = 1 M emoria mg oral 0-24 tab, PO, l tablet 18:43: Q8H, PRN Jah 00 Pain, Take with food, X 5 day, # 15 tab, 0 Refill(s) Motrin 2016-04 No 600 mg, Memoria 0-24 Route: PO, l 17:01: Drug form: Jah 00 TAB, ONCE, Dosing Weight 123.438, kg, Priority: STAT, Start date: 02/14/17 12:01:00 CDT, Stop date: 02/14/17 12:01:00 CDT Motrin 2016-04 No 600 mg, Memoria 0-24 Route: PO, l 17:01: Drug form: Jah 00 TAB, ONCE, Dosing Weight 123.438, kg, Priority: STAT, Start date: 02/14/17 12:01:00 CDT, Stop date: 02/14/17 12:01:00 CDT Motrin 2016-04 No 600 mg, Memoria 0-24 Route: PO, l 17:01: Drug form: Jah 00 TAB, ONCE, Dosing Weight 123.438, kg, Priority: STAT, Start date: 02/14/17 12:01:00 CDT, Stop date: 02/14/17 12:01:00 CDT Motrin 2017 No 600 mg, Memoria 0-24 Route: PO, l 17:01: Drug form: [place] 00 TAB, ONCE, Dosing Weight 123.438, kg, Priority: STAT, Start date: 02/14/17 12:01:00 CDT, Stop date: 02/14/17 12:01:00 CDT Motrin 2016-04 No 600 mg, Memoria 0-24 Route: PO, l 17:01: Drug form: [place] 00 TAB, ONCE, Dosing Weight 123.438, kg, Priority: STAT, Start date: 02/14/17 12:01:00 CDT, Stop date: 02/14/17 12:01:00 CDT Motrin 2016- No 600 mg, Memoria 0-24 Route: PO, l 17:01: Drug form: Jah 00 TAB, ONCE, Dosing Weight 123.438, kg, Priority: STAT, Start date: 02/14/17 12:01:00 CDT, Stop date: 02/14/17 12:01:00 CDT Acetaminoph No 1 tab, PO, Memoria en 300 MG / 5-17 Q6H, PRN l Codeine 06:22: Pain, X 2 Fany nn Phosphate 00 day, # 8 30 MG Oral tab, 0 Tablet Refill(s) [Tylenol with Codeine #3] Acetaminoph No 1 tab, PO, Memoria en 300 MG / 5-17 Q6H, PRN l Codeine 06:22: Pain, X 2 Fany nn Phosphate 00 day, # 8 30 MG Oral tab, 0 Tablet Refill(s) [Tylenol with Codeine #3] Acetaminoph No 1 tab, PO, Memoria en 300 MG / 5-17 Q6H, PRN l Codeine 06:22: Pain, X 2 Fany nn Phosphate 00 day, # 8 30 MG Oral tab, 0 Tablet Refill(s) [Tylenol with Codeine #3] Acetaminoph No 1 tab, PO, Memoria en 300 MG / 5-17 Q6H, PRN l Codeine 06:22: Pain, X 2 Fany nn Phosphate 00 day, # 8 30 MG Oral tab, 0 Tablet Refill(s) [Tylenol with Codeine #3] Acetaminoph No 1 tab, PO, Memoria en 300 MG / 5-17 Q6H, PRN l Codeine 06:22: Pain, X 2 Fany nn Phosphate 00 day, # 8 30 MG Oral tab, 0 Tablet Refill(s) [Tylenol with Codeine #3] Acetaminoph No 1 tab, PO, Memoria en [...] Fany nn tablet 00 tab, 0 Refill(s) [facility] Yes 1 tab, PO, Me moria 800 mg-160 5-17 BID, X 10 l mg oral 06:21: day, # 20 Fany nn tablet 00 tab, 0 Refill(s) [facility] Yes 1 tab, PO, Me moria 800 mg-160 5-17 BID, X 10 l mg oral 06:21: day, # 20 Fany nn tablet 00 tab, 0 Refill(s) [facility] Yes 1 tab, PO, Me moria 800 mg-160 5-17 BID, X 10 l mg oral 06:21: day, # 20 Fany nn tablet 00 tab, 0 Refill(s) [facility] Yes 1 tab, PO, Me moria 800 mg-160 5-17 BID, X 10 l mg oral 06:21: day, # 20 Fany nn tablet 00 tab, 0 Refill(s) [facility] Yes 1 tab, PO, Me moria 800 [...] [Tylenol with Codeine #3] Acetaminoph 2014-04 No 1 - 2 tab, Memoria en 300 MG / 2-05 PO, Q4H, l Codeine 10:32: PRN Pain, Fany nn Phosphate 00 X 2 day, # 30 MG Oral 20 tab, 0 Tablet Refill(s) [Tylenol with Codeine #3] Acetaminoph 2014-04 No 1 - 2 tab, Memoria en 300 MG / 2-05 PO, Q4H, l Codeine 10:32: PRN Pain, Fany nn Phosphate 00 X 2 day, # 30 MG Oral 20 tab, 0 Tablet Refill(s) [Tylenol with Codeine #3] Acetaminoph 2014-04 No 1 - 2 tab, Memoria en 300 MG / 2-05 PO, Q4H, l Codeine 10:32: PRN Pain, Fany nn Phosphate 00 X 2 day, # 30 MG Oral 20 tab, 0 Tablet Refill(s) [Tylenol with Codeine #3] Acetaminoph 2014-04 No 1 - 2 tab, Memoria en 300 MG / 2-05 PO, Q4H, l Codeine 10:32: PRN Pain, Fany nn Phosphate 00 X 2 day, # 30 MG Oral 20 tab, 0 Tablet Refill(s) [Tylenol with Codeine #3] Acetaminoph 2014-04 No 1 - 2 tab, Memoria en 300 MG / 2-05 PO, Q4H, l Codeine 10:32: PRN Pain, Fany nn Phosphate 00 X 2 day, # 30 MG Oral 20 tab, 0 Tablet Refill(s) [Tylenol with Codeine #3] Acetaminoph 2014-04 No Notes: Do M emoria en 325 MG / 2-05 not exceed l Hydrocodone 10:30: 4gm/day of [place] Bitartrate 00 acetaminop 10 MG Oral hen. Tablet (Same as: [Criders Criders 10/325] 325/10) Acetaminoph 2014-04 No Notes: Do M emoria en 325 MG / 2-05 not exceed l Hydrocodone 10:30: 4gm/day of Jah Bitartrate 00 acetaminop 10 MG Oral hen. Tablet (Same as: [Criders Criders 10/325] 325/10) Acetaminoph 2014-04 No Notes: Do M emoria en 325 MG / 2-05 not exceed l Hydrocodone 10:30: 4gm/day of Jah Bitartrate 00 acetaminop 10 MG Oral hen. Tablet (Same as: [Criders Criders 10/325] 325/10) Acetaminoph 2014-04 No Notes: Do M emoria en 325 MG / 2-05 not exceed l Hydrocodone 10:30: 4gm/day of Jah Bitartrate 00 acetaminop 10 MG Oral hen. Tablet (Same as: [Criders Criders 10/325] 325/10) Acetaminoph 2014-04 No Notes: Do M emoria en 325 MG / 2-05 not exceed l Hydrocodone 10:30: 4gm/day of [place] Bitartrate 00 acetaminop 10 MG Oral hen. Tablet (Same as: [Criders Criders 10/325] 325/10) Acetaminoph 2014-04 No Notes: Do M emoria en 325 MG / 2-05 not exceed l Hydrocodone 10:30: 4gm/day of Jah Bitartrate 00 acetaminop 10 MG Oral hen. Tablet (Same as: [Criders Criders 10/325] 325/10) 200 ACTUAT 2014-04 Yes 2 puff, Thaddeus mekhi Albuterol 2-05 INHALATION l 0.09 09:39: , QID, 0 Jah MG/ACTUAT 00 Refill(s) Metered Dose Inhaler 200 ACTUAT 2014-04 Yes 2 puff, Thaddeus mekhi Albuterol 2-05 INHALATION l 0.09 09:39: , QID, 0 Jah MG/ACTUAT 00 Refill(s) Metered Dose Inhaler 200 ACTUAT 2014-04 Yes 2 puff, Thaddeus mekhi Albuterol 2-05 INHALATION l 0.09 09:39: , QID, 0 Jah MG/ACTUAT 00 Refill(s) Metered Dose Inhaler 200 ACTUAT 2014-04 Yes 2 puff, Thaddeus mekhi Albuterol 2-05 INHALATION l 0.09 09:39: , QID, 0 [place] MG/ACTUAT 00 Refill(s) Metered Dose Inhaler 200 ACTUAT 2014-04 Yes 2 puff, Thaddeus mekhi Albuterol 2-05 INHALATION l 0.09 09:39: , QID, 0 Jah MG/ACTUAT 00 Refill(s) Metered Dose Inhaler 200 ACTUAT 2014-04 Yes 2 puff, Thaddeus mekhi Albuterol 2-05 INHALATION l 0.09 09:39: , QID, 0 [place] MG/ACTUAT 00 Refill(s) Metered Dose Inhaler Non-Formula 2014-04 Yes Refill(s) Irma almeida ry Home 2-05 0 l Medication 09:38: Jah 00 Non-Formula 2014-04 Yes Refill(s) Irma almeida Home 2-05 0 l Medication 09:38: [place] 00 Non-Formula 2014-04 Yes Refill(s) Irma patel Home 2-05 0 l Medication 09:38: [place] 00 Non-Formula 2014-04 Yes Refill(s) Irma patel Home 2-05 0 l Medication 09:38: Jah 00 Non-Formula 2014-04 Yes Refill(s) Irma almeida ry Home 2-05 0 l Medication 09:38: Jah 00 Non-Formula 2014-04 Yes Refill(s) Irma patel Home 2-05 0 l Medication 09:38: Jah 00 non-formula 2014-04 Yes Refill(s) Irma almeida ry 2-05 0 l 09:37: Jah 00 non-formula 2014-04 Yes Refill(s) Irma almeida ry 2-05 0 l 09:37: [place] 00 non-formula 2014-04 Yes Refill(s) Irma almeida ry 2-05 0 l 09:37: [place] 00 non-formula 2014-04 Yes Refill(s) Irma almeida ry 2-05 0 l 09:37: [place] 00 non-formula 2014-04 Yes Refill(s) Irma almeida ry 2-05 0 l 09:37: [place] 00 non-formula 2014-04 Yes Refill(s) Irma almeida ry 2-05 0 l 09:37: Jah 00 Morphine 2014-04 No Notes: Memoria 2-05 (Same l 06:01: as:MORPhin [place] 00 e Sulfate) Ondansetron 2014-04 No Notes: Thaddeus mekhi 2-05 (Same as: l 06:01: Zofran) [place] 00 MEDICATION WASTE Product Size: 4 mg [...] as: l 06:01: BD Jah 00 Posiflush) Morphine 2014-04 No Notes: Memoria 2-05 (Same l 06:01: as:MORPhin Jah 00 e Sulfate) Ondansetron 2014-04 No Notes: Thaddeus mekhi 2-05 (Same as: l 06:01: Zofran) Jah 00 MEDICATION WASTE Product Size: 4 mg [...] 0.9% 2-05 (Same as: l 06:01: BD [place] 00 Posiflush) Morphine 2014-04 No Notes: Memoria 2-05 (Same l 06:01: as:MORPhin Jah 00 e Sulfate) Ondansetron 2014-04 No Notes: Thaddeus mekhi 2-05 (Same as: l 06:01: Zofran) Jah 00 MEDICATION WASTE Product Size: 4 mg Product Wasted: ___ mg Sodium 2014-04 No 1,000 mL, Memori a Chloride 2-05 1000 l 0.154 06:01: ml/hr, [place] MEQ/ML 00 Infuse Injectable Over: 1 Solution hr, Route: IV, 1,000, Drug form: INJ, ONCE, Priority: STAT, Dosing Weight 122.727 kg, Start date: 03/28/15 0:01:00, Duration: 1 doses or times, Stop date: 03/28/15 0:01:00 Saline 2014-04 No Notes: Memoria Flush 0.9% 2-05 (Same as: l 06:01: BD Jah 00 Posiflush) Morphine 2014-04 No Notes: Memoria 2-05 (Same l 06:01: as:MORPhin [place] 00 e Sulfate) Ondansetron 2014-04 No Notes: Thaddeus mekhi 2-05 (Same as: l 06:01: Zofran) Jah 00 MEDICATION WASTE Product Size: 4 mg Product Wasted: ___ mg Sodium 2014-04 No 1,000 mL, Memori a Chloride 2-05 1000 l 0.154 06:01: ml/hr, [place] MEQ/ML 00 Infuse Injectable Over: 1 Solution hr, Route: IV, 1,000, Drug form: INJ, ONCE, Priority: STAT, Dosing Weight 122.727 kg, Start date: 03/28/15 0:01:00, Duration: 1 doses or times, Stop date: 03/28/15 0:01:00 Saline 2014-04 No Notes: Memoria Flush 0.9% 2-05 (Same as: l 06:01: BD Jah 00 Posiflush) Morphine 2014-04 No Notes: Memoria 2-05 (Same l 06:01: as:MORPhin [place] 00 e Sulfate) Ondansetron 2014-04 No Notes: Thaddeus mekhi 2-05 (Same as: l 06:01: Zofran) [place] 00 MEDICATION WASTE Product Size: 4 mg [...] 0.9% 2-05 (Same as: l 06:01: BD [place] 00 Posiflush) Morphine 2014-04 No Notes: Memoria 2-05 (Same l 06:01: as:MORPhin [place] 00 e Sulfate) Ondansetron 2014-04 No Notes: Thaddeus mekhi 2-05 (Same as: l 06:01: Zofran) Jah 00 MEDICATION WASTE Product Size: 4 mg [...] 0.9% 2-05 (Same as: l 06:01: BD [place] 00 Posiflush) Combmartine Combmartine Yes Shelly [address] [facility] [...] Name Observation Time Observation Value Comments Source HEIGHT 2020-12-10 09:39:00 165.1 cm WEIGHT 2020-12-10 09:39:00 101.969 kg HEIGHT 2020-12-09 14:34:00 165.1 cm WEIGHT 2020-12-09 14:34:00 102.967 kg Systolic blood 2021-07-02 19:02:00 128 mm[Hg] [facility] pressure Medicine Diastolic blood 2021-07-02 19:02:00 78 mm[Hg] [facility] pressure Medicine Heart rate 2021-07-02 19:02:00 120 /min [facility] Body temperature 2021-07-02 19:02:00 36.11 Mable [facility] Body height 2021-07-02 19:02:00 165.1 cm [facility] Body weight 2021-07-02 19:02:00 100.699 kg [facility] BMI 2021-07-02 19:02:00 36.94 kg/m2 [facility] Systolic blood 2020-12-25 16:54:00 112 mm[Hg] [facility] pressure Medicine Diastolic blood 2020-12-25 16:54:00 71 mm[Hg] [facility] Medicine Heart rate 2020-12-25 16:54:00 86 /min [facility] Body temperature 2020-12-25 16:54:00 36.11 Mable [facility] Body height 2020-12-25 16:54:00 [facility] 2020-12-25 16:54:00 104.781 kg [facility] BMI 2020-12-25 16:54:00 38.44 kg/m2 [facility] Systolic blood 2020-12-25 16:09:00 118 mm[Hg] [facility] Medicine Diastolic blood 2020-12-25 16:09:00 79 mm[Hg] [facility] Medicine Heart rate 2020-12-25 16:09:00 106 /min [facility] height 2020-12-18 18:17:00 165.1 cm [facility] HEIGHT 2020-12-10 09:39:00 165.1 cm WEIGHT 2020-12-10 09:39:00 101.969 kg HEIGHT 2020-12-09 14:34:00 165.1 cm WEIGHT 2020-12-09 14:34:00 102.967 kg WEIGHT 2020-12-09 12:35:00 103.329 kg HEIGHT 2020-12-09 12:35:00 165.1 cm WEIGHT 2020-12-09 12:35:00 103.329 kg HEIGHT 2020-12-09 12:35:00 165.1 cm Systolic blood 2020-11-06 15:40:00 129 mm[Hg] [facility] pressure Medicine Diastolic blood 2020-11-06 15:40:00 76 mm[Hg] [facility] Medicine Heart rate 2020-11-06 15:40:00 91 /min [facility] Body temperature 2020-11-06 15:40:00 36.17 Mable [facility] Body height 2020-11-06 15:40:00 165.1 cm [facility] Body weight 2020-11-06 15:40:00 101.606 kg [facility] BMI 2020-11-06 15:40:00 37.28 kg/m2 [facility] Height 2019-07-08 14:21:00 165.1 cm [facility] Weight 2019-07-08 14:21:00 [facility] BMI Calculated 2019-07-08 14:21:00 Memori al [place] Respitory Rate 2017-02-14 19:00:00 Memori al Jah Heart Rate 2017-02-14 19:00:00 [facility] Systolic (mm Hg) 2017-02-14 19:00:00 Thaddeus rial Jah Diastolic (mm Hg) 2017-02-14 19:00:00 Mem orial Jah Heart Rate 2017-02-14 17:12:00 [facility] [place] Respitory Rate 2017-02-14 17:12:00 Memori al Jah Systolic (mm Hg) 2017-02-14 17:12:00 Thaddeus rial [place] Diastolic (mm Hg) 2017-02-14 17:12:00 Mem orial [place] Respitory Rate 2017-02-14 16:57:00 Memori al Jah Heart Rate 2017-02-14 16:57:00 [facility] Systolic (mm Hg) 2017-02-14 16:57:00 Thaddeus rial Jah Diastolic (mm Hg) 2017-02-14 16:57:00 Mem orial Jah BMI Calculated 2017-02-14 15:38:00 Memori al Jah Weight 2017-02-14 15:38:00 [facility] [place] Height 2017-02-14 15:38:00 167.64 cm [facility] Temperature Oral (F) 2017-02-14 15:38:00 98.0 F [facility] [place] Respitory Rate 2016-09-07 06:40:00 Memori al [place] Heart Rate 2016-09-07 06:40:00 [facility] [place] Temperature Oral (F) 2016-09-07 06:40:00 98.6 F [facility] [place] Systolic (mm Hg) 2016-09-07 06:40:00 Thaddeus rial [place] Diastolic (mm Hg) 2016-09-07 06:40:00 Mem orial [place] Systolic (mm Hg) 2016-09-07 05:54:00 Thaddeus rial [place] Diastolic (mm Hg) 2016-09-07 05:54:00 Mem orial [place] Heart Rate 2016-09-07 05:54:00 [facility] [place] Respitory Rate 2016-09-07 05:54:00 Memori al Jah Temperature Oral (F) 2016-09-07 05:54:00 98.7 F [facility] [place] Height 2016-09-07 02:08:00 167.64 cm [facility] Temperature Oral (F) 2016-09-07 02:08:00 99.0 F [facility] [place] Respitory Rate 2016-09-07 02:08:00 Memori al Jah Heart Rate 2016-09-07 02:08:00 [facility] [place] Systolic (mm Hg) 2016-09-07 02:08:00 Thaddeus rial [place] Diastolic (mm Hg) 2016-09-07 02:08:00 Mem orial Jah Weight 2016-09-07 02:08:00 [facility] BMI Calculated 2016-09-07 02:08:00 Memori al [place] Heart Rate 2015-03-28 11:51:00 [facility] Temperature Oral (F) 2015-03-28 11:51:00 98.0 F [facility] Systolic (mm Hg) 2015-03-28 11:51:00 Thaddeus rial Jah Diastolic (mm Hg) 2015-03-28 11:51:00 Mem orial Jah Respitory Rate 2015-03-28 11:51:00 Memori al Jah Systolic (mm Hg) 2015-03-28 10:35:00 Thaddeus rial [place] Diastolic (mm Hg) 2015-03-28 10:35:00 Mem orial [place] Heart Rate 2015-03-28 10:35:00 [facility] Respitory Rate 2015-03-28 10:35:00 Memori al Jah Systolic (mm Hg) 2015-03-28 09:36:00 Thaddeus rial [place] Diastolic (mm Hg) 2015-03-28 09:36:00 Mem orial [place] Heart Rate 2015-03-28 09:36:00 [facility] Respitory Rate 2015-03-28 09:36:00 Memori al Jah Height 2015-03-28 05:58:00 165.1 cm [facility] BMI Calculated 2015-03-28 05:58:00 Memori al Jah Weight 2015-03-28 05:58:00 [facility] Temperature Oral (F) 2015-03-28 05:58:[address] [facility] 2013-03-14 17:00:00 167.64 cm [facility] Weight 2013-03-14 17:00:00 [facility] Procedures Procedure Date / Time Performed Performing Clinician [facility] e Partial hysterectomy [facility] Plan of Care Planned Activity Planned Date Details Comments Source Future Scheduled 2021-07-02 Screening for malignant [facility] Test 13:02:47 neoplasm of colon Medicine (procedure) [code = 721702103] Future Scheduled 2021-07-02 Screening for malignant [facility] Test 13:02:47 neoplasm of breast Medicine (procedure) [code = 879779556] Future Scheduled 2021-07-02 COVID-19 Vaccine (1) [facility] Test 13:02:47 [code = COVID-19 Vaccine Med icine (1)] Future Scheduled 2021-07-02 Pneumococcal Combined (1 [facility] Test 13:02:47 of 4 - PCV13) [code = Medici ne Pneumococcal Combined (1 of 4 - PCV13)] Future Scheduled 2021-07-02 Diabetic foot examination [facility] Test 13:02:47 (regime/therapy) [code = Med icine [id number]] Future Scheduled 2021-07-02 ANNUAL DIABETIC [facility] Test 13:02:47 RETINOPATHY SCREENING Medici ne [code = ANNUAL DIABETIC RETINOPATHY SCREENING] Future Scheduled 2021-07-02 Hepatitis C screening Ba [facility] Test 13:02:47 (procedure) [code = Medicine [id number]] Future Scheduled 2021-07-02 Human immunodeficiency B [facility] Test 13:02:47 virus screening Medicine (procedure) [code = [id number]] Future Scheduled 2021-07-02 Screening for malignant [facility] Test 13:02:47 neoplasm of cervix Medicine (procedure) [code = [id number]] Future Scheduled 2021-07-02 ZOSTER VACCINE (1 of 2) [facility] Test 13:02:47 [code = ZOSTER VACCINE (1 Me dicine of 2)] Future Scheduled 2021-07-02 MEDICARE IPPE (WELCOME TO [facility] Test 13:02:47 MEDICARE) [code = Medicine MEDICARE IPPE (WELCOME TO MEDICARE)] Future Scheduled 2021-07-02 FLU VACCINE > 6 MONTHS B [facility] Test 13:02:47 [code = FLU VACCINE > 6 Medi cine MONTHS] Future Scheduled 2021-07-02 TETANUS SHOT (ADULT) [facility] of Test 13:02:47 [code = TETANUS SHOT Medicin e (ADULT)] Future Scheduled 2021-07-02 BMI FOLLOW UP PLAN [code [facility] Test 13:02:47 = BMI FOLLOW UP PLAN] Medici ne Future Scheduled 2020-12-25 ZOSTER VACCINE (1 of 2) [facility] Test 11:56:38 [code = ZOSTER VACCINE (1 Me dicine of 2)] Future Scheduled 2020-12-25 MEDICARE IPPE (WELCOME TO [facility] Test 11:56:38 MEDICARE) [code = Medicine MEDICARE IPPE (WELCOME TO MEDICARE)] Future Scheduled 2020-12-25 FLU VACCINE > 6 MONTHS B [facility] Test 11:56:38 [code = FLU VACCINE > 6 Medi cine MONTHS] Future Scheduled 2020-12-25 TETANUS SHOT (ADULT) [facility] Test 11:56:38 [code = TETANUS SHOT Medicin e (ADULT)] Future Scheduled 2020-12-25 BMI FOLLOW UP PLAN [code [facility] Test 11:56:38 = BMI FOLLOW UP PLAN] Medici ne Future Scheduled 2020-12-25 Screening for malignant [facility] Test 11:56:38 neoplasm of colon Medicine (procedure) [code = [id number]] Future Scheduled 2020-12-25 Screening for malignant [facility] Test 11:56:38 neoplasm of breast Medicine (procedure) [code = 947398636] Future Scheduled 2020-12-25 COVID-19 Vaccine (1) [facility] Test 11:56:38 [code = COVID-19 Vaccine Med icine (1)] Future Scheduled 2020-12-25 Diabetic foot examination [facility] Test 11:56:38 (regime/therapy) [code = Med icine [id number]] Future Scheduled 2020-12-25 ANNUAL DIABETIC [facility] Test 11:56:38 RETINOPATHY SCREENING Medici ne [code = ANNUAL DIABETIC RETINOPATHY SCREENING] Future Scheduled 2020-12-25 Hepatitis C screening Ba [facility] of Test 11:56:38 (procedure) [code = Medicine [id number]] Future Scheduled 2020-12-25 Human immunodeficiency B [facility] Test 11:56:38 virus screening Medicine (procedure) [code = 402706402] Future Scheduled 2020-12-25 Screening for malignant [facility] Test 11:56:38 neoplasm of cervix Medicine (procedure) [code = 235395086] Future Scheduled 2020-12-25 ZOSTER VACCINE (1 of 2) [facility] Test 11:56:38 [code = ZOSTER VACCINE (1 Me dicine of 2)] Future Scheduled 2020-12-25 MEDICARE IPPE (WELCOME TO [facility] Test 11:56:38 MEDICARE) [code = Medicine MEDICARE IPPE (WELCOME TO MEDICARE)] Future Scheduled 2020-12-25 FLU VACCINE > 6 MONTHS B [facility] Test 11:56:38 [code = FLU VACCINE > 6 Medi cine MONTHS] Future Scheduled 2020-12-25 TETANUS SHOT (ADULT) [facility] Test 11:56:38 [code = TETANUS SHOT Medicin e (ADULT)] Future Scheduled 2020-12-25 BMI FOLLOW UP PLAN [code [facility] Test 11:56:38 = BMI FOLLOW UP PLAN] Medici ne Future Scheduled 2020-12-25 Screening for malignant [facility] Test 11:56:38 neoplasm of colon Medicine (procedure) [code = 574458923] Future Scheduled 2020-12-25 Screening for malignant [facility] Test 11:56:38 neoplasm of breast Medicine (procedure) [code = [id number]] Future Scheduled 2020-12-25 COVID-19 Vaccine (1) [facility] Test 11:56:38 [code = COVID-19 Vaccine Med icine (1)] Future Scheduled 2020-12-25 Diabetic foot examination [facility] Test 11:56:38 (regime/therapy) [code = Med icine [id number]] Future Scheduled 2020-12-25 ANNUAL DIABETIC [facility] Test 11:56:38 RETINOPATHY SCREENING Medici ne [code = ANNUAL DIABETIC RETINOPATHY SCREENING] Future Scheduled 2020-12-25 Hepatitis C screening [facility] Test 11:56:38 (procedure) [code = Medicine [id number]] Future Scheduled 2020-12-25 Human immunodeficiency B [facility] Test 11:56:38 virus screening Medicine (procedure) [code = 328054947] Future Scheduled 2020-12-25 Screening for malignant [facility] Test 11:56:38 neoplasm of cervix Medicine (procedure) [code = 459413850] Future Scheduled 2020-12-25 ZOSTER VACCINE (1 of 2) [facility] Test 11:56:38 [code = ZOSTER VACCINE (1 Me dicine of 2)] Future Scheduled 2020-12-25 MEDICARE IPPE (WELCOME TO [facility] Test 11:56:38 MEDICARE) [code = Medicine MEDICARE IPPE (WELCOME TO MEDICARE)] Future Scheduled 2020-12-25 FLU VACCINE > 6 MONTHS B [facility] Test 11:56:38 [code = FLU VACCINE > 6 Medi cine MONTHS] Future Scheduled 2020-12-25 TETANUS SHOT (ADULT) [facility] Test 11:56:38 [code = TETANUS SHOT Medicin e (ADULT)] Future Scheduled 2020-12-25 BMI FOLLOW UP PLAN [code [facility] Test 11:56:38 = BMI FOLLOW UP PLAN] Medici ne Future Scheduled 2020-12-25 Screening for malignant [facility] Test 11:56:38 neoplasm of colon Medicine (procedure) [code = 273510841] Future Scheduled 2020-12-25 Screening for malignant [facility] Test 11:56:38 neoplasm of breast Medicine (procedure) [code = 446302254] Future Scheduled 2020-12-25 COVID-19 Vaccine (1) [facility] Test 11:56:38 [code = COVID-19 Vaccine Med icine (1)] Future Scheduled 2020-12-25 Diabetic foot examination [facility] Test 11:56:38 (regime/therapy) [code = Med icine 479247815] Future Scheduled 2020-12-25 ANNUAL DIABETIC [facility] Test 11:56:38 RETINOPATHY SCREENING Medici ne [code = ANNUAL DIABETIC RETINOPATHY SCREENING] Future Scheduled 2020-12-25 Hepatitis C screening [facility] Test 11:56:38 (procedure) [code = Medicine 345987341] Future Scheduled 2020-12-25 Human immunodeficiency [facility] Test 11:56:38 virus screening Medicine (procedure) [code = 587060367] Future Scheduled 2020-12-25 Screening for malignant [facility] Test 11:56:38 neoplasm of cervix Medicine (procedure) [code = 717998063] Future Scheduled 2020-12-25 ZOSTER VACCINE (1 of 2) [facility] Test 11:56:38 [code = ZOSTER VACCINE (1 Me dicine of 2)] Future Scheduled 2020-12-25 MEDICARE IPPE (WELCOME TO [facility] Test 11:56:38 MEDICARE) [code = Medicine MEDICARE IPPE (WELCOME TO MEDICARE)] Future Scheduled 2020-12-25 FLU VACCINE > 6 MONTHS [facility] Test 11:56:38 [code = FLU VACCINE > 6 Medi cine MONTHS] Future Scheduled 2020-12-25 TETANUS SHOT (ADULT) [facility] Test 11:56:38 [code = TETANUS SHOT Medicin e (ADULT)] Future Scheduled 2020-12-25 BMI FOLLOW UP PLAN [code [facility] Test 11:56:38 = BMI FOLLOW UP PLAN] Medici ne Future Scheduled 2020-12-25 Screening for malignant [facility] Test 11:56:38 neoplasm of colon Medicine (procedure) [code = 967531038] Future Scheduled 2020-12-25 Screening for malignant [facility] Test 11:56:38 neoplasm of breast Medicine (procedure) [code = 165102642] Future Scheduled 2020-12-25 COVID-19 Vaccine (1) [facility] Test 11:56:38 [code = COVID-19 Vaccine Med icine (1)] Future Scheduled 2020-12-25 Diabetic foot examination [facility] Test 11:56:38 (regime/therapy) [code = Med icine 034365110] Future Scheduled 2020-12-25 ANNUAL DIABETIC [facility] Test 11:56:38 RETINOPATHY SCREENING Medici ne [code = ANNUAL DIABETIC RETINOPATHY SCREENING] Future Scheduled 2020-12-25 Hepatitis C screening [facility] Test 11:56:38 (procedure) [code = Medicine 237836813] Future Scheduled 2020-12-25 Human immunodeficiency [facility] Test 11:56:38 virus screening Medicine (procedure) [code = 819979392] Future Scheduled 2020-12-25 Screening for malignant [employer] [facility] Test 11:56:38 neoplasm of cervix Medicine (procedure) [code = 491649319] Future Scheduled 2020-12-18 BMI FOLLOW UP PLAN [code [facility] Test 13:30:20 = BMI FOLLOW UP PLAN] Medici ne Future Scheduled 2020-12-18 Screening for malignant [facility] Test 13:17:57 neoplasm of colon Medicine (procedure) [code = 635972080] Future Scheduled 2020-12-18 Screening for malignant [facility] Test 13:17:57 neoplasm of breast Medicine (procedure) [code = 283469682] Future Scheduled 2020-12-18 COVID-19 Vaccine (1) [facility] Test 13:17:57 [code = COVID-19 Vaccine Med icine (1)] Future Scheduled 2020-12-18 Diabetic foot examination [facility] Test 13:17:57 (regime/therapy) [code = Med icine 701435136] Future Scheduled 2020-12-18 ANNUAL DIABETIC [facility] Test 13:17:57 RETINOPATHY SCREENING Medici ne [code = ANNUAL DIABETIC RETINOPATHY SCREENING] Future Scheduled 2020-12-18 Hepatitis C screening [facility] Test 13:17:57 (procedure) [code = Medicine 271339069] Future Scheduled 2020-12-18 Human immunodeficiency [facility] Test 13:17:57 virus screening Medicine (procedure) [code = 745226774] Future Scheduled 2020-12-18 Screening for malignant [facility] Test 13:17:57 neoplasm of cervix Medicine (procedure) [code = 437397735] Future Scheduled 2020-12-18 ZOSTER VACCINE (1 of 2) [facility] Test 13:17:57 [code = ZOSTER VACCINE (1 Me dicine of 2)] Future Scheduled 2020-12-18 MEDICARE IPPE (WELCOME TO [facility] Test 13:17:57 MEDICARE) [code = Medicine MEDICARE IPPE (WELCOME TO MEDICARE)] Future Scheduled 2020-12-18 FLU VACCINE > 6 MONTHS [facility] Test 13:17:57 [code = FLU VACCINE > 6 Medi cine MONTHS] Future Scheduled 2020-12-18 TETANUS SHOT (ADULT) [facility] Test 13:17:57 [code = TETANUS SHOT Medicin e (ADULT)] Future Scheduled 2020-11-06 Screening for malignant [facility] Test 13:13:10 neoplasm of colon Medicine (procedure) [code = 506022423] Future Scheduled 2020-11-06 Screening for malignant [facility] Test 13:13:10 neoplasm of breast Medicine (procedure) [code = 441518216] Future Scheduled 2020-11-06 COVID-19 Vaccine (1) [facility] Test 13:13:10 [code = COVID-19 Vaccine Med icine (1)] Future Scheduled 2020-11-06 TETANUS SHOT (ADULT) [facility] Test 13:13:10 [code = TETANUS SHOT Medicin e (ADULT)] Future Scheduled 2020-11-06 Diabetic foot examination [facility] Test 13:13:10 (regime/therapy) [code = Med icine 383427478] Future Scheduled 2020-11-06 ANNUAL DIABETIC [facility] Test 13:13:10 RETINOPATHY SCREENING Medici ne [code = ANNUAL DIABETIC RETINOPATHY SCREENING] Future Scheduled 2020-11-06 Hepatitis C screening [facility] Test 13:13:10 (procedure) [code = Medicine 287336179] Future Scheduled 2020-11-06 Human immunodeficiency B [facility] 13:13:10 virus screening Medicine (procedure) [code = 126865826] Future Scheduled 2020-11-06 Screening for malignant [facility] Test 13:13:10 neoplasm of cervix Medicine (procedure) [code = 004534670] Future Scheduled 2020-11-06 ZOSTER VACCINE (1 of 2) [facility] 13:13:10 [code = ZOSTER VACCINE (1 Me dicine of 2)] Future Scheduled 2020-11-06 MEDICARE IPPE (WELCOME TO [facility] Test 13:13:10 MEDICARE) [code = Medicine MEDICARE IPPE (WELCOME TO MEDICARE)] Future Scheduled 2020-11-06 FLU VACCINE > 6 MONTHS [facility] Test 13:13:10 [code = FLU VACCINE > 6 Medi cine MONTHS] Future Scheduled 2020-11-06 BMI FOLLOW UP PLAN [code [facility] Test 13:13:10 = BMI FOLLOW UP PLAN] Medici ne Encounters Start End Encounter Admission Attending Care Care Encounter Source Date/Time Date/Time Type Type Clinicians Facility Department ID 2021-06-08 Outpatient Marium Georges [facility] [id number] 07[facility]08[facility]00 [facility] 2021-05-22 Outpatient Georges, Na [facility] [id number] 10:06:02 [facility] 2021-05-19 Outpatient Debbie, Na [facility] [id number] 14:38:37 [facility] 2021-05-19 Outpatient Georges, Na [facility] [id number] 14:09:02 [id number] [facility] 2021-05-19 Outpatient Debbie, Na [facility] [id number] 14:01:41 [id number] [facility] 2021-05-19 Outpatient Debbie, Na [facility] [id number] 13:50:30 [id number] [facility] 2021-05-19 Outpatient Arash, [facility] [id number] 13:28:10 Shelly [id number] [facility] 2021-05-19 Outpatient Arash, [facility] [id number] 12:08:56 Shelly [id number] [facility] 2021-05-19 Outpatient Arash, [facility] [id number] 11:31:36 Shelly [id number] [facility] 2021-05-19 Outpatient Arash, [facility] [id number] 11:12:52 Shelly [id number] [facility] 2021-05-19 Outpatient Arash, [facility] [id number] 11:04:02 Shelly [id number] [facility] 2021-05-19 Outpatient Arash, [facility] [id number] 11:00:43 Shelly [id number] [facility] 2021-05-19 Outpatient Arash, [facility] [id number] 11:00:34 Shelly [id number] [facility] 2021-01-31 [id number] 05[facility]40:26 BAIRON 2020-01-10 Outpatient NORM EWA MED [id number] [facility] 15:47:17 ASIA 2021-07-19 2021-07-19 ambulatory [facility] [id number] [facility] 2021-07-19 2021-07-19 ambulatory [facility] [id number] [facility] 2021-07-05 2021-07-05 ambulatory [facility] [id number] [facility] 2021-07-02 2021-07-02 Office ERMA BALDERAS [id number] [facility] 12:38:09 15:25:44 Visit BAIRON Grigsby 350.1.13.21 Co llege 0.2.7.2.686 of [id number] [facility] abraham 510 e 2021-05-14 2021-05-14 ambulatory [facility]LMLC [facility] [id number] [facility] 2021-02-12 2021-02-12 Outpatient STLM [facility] [id number] [facility] 2020-12-25 2020-12-25 Office ERMA Balderas [id number] [facility] 11:48:52 12:03:52 Visit Bairon Alcalar 350.1.13.21 College 0.2.7.2.686 of [id number] [facility] 510 e 2020-12-25 2020-12-25 Office MICHELLE Alonzo [id number] [facility] 11:01:49 11:37:00 Visit Karine AMBULATOR 350.1.13.21 College Y 0.2.7.2.686 of [id number] Medi abraham 800 e 2020-12-18 2020-12-18 Office MICHELLE Kingsley [id number] [facility] 12:52:33 13:52:10 Visit Karma AMBULATOR 350.1.13.21 College Y 0.2.7.2.686 of [id number] [facility] 800 e 2020-12-09 2020-12-09 Outpatient EL [facility] [id number] [facility] 00:00:00 00:00:00 2020-12-09 2020-12-09 Outpatient EL [facility] [id number] [facility] 00:00:00 00:00:00 2020-11-26 2020-11-26 Outpatient MICHELLE DAY [facility] [id number] [facility] 10:56:07 12:09:57 WHITNEY mera of Medicin e 2020-11-11 2020-11-11 Outpatient [facility] [id number] [facility] 00[facility]:00 [facility] Outpati ent Clinics 2020-11-06 2020-11-06 Office ERMA Balderas [id number] [facility] 10:24:12 12:43:12 Visit Bairon Griselda Calista 350.1.13.21 College 0.2.7.2.686 of [id number] [facility] 510 e 2020-11-06 2020-11-06 Outpatient MICHELLE GONZALES [facility] [id number] [facility] 11:50:11 12:35:12 JUAN FRANCISCO judgee of Medicin e 2020-09-25 2020-09-25 Outpatient MICHELLE BALDERAS [facility] [id number] [facility] 13:46:53 15:07:45 BAIRON mera of Medicin e 2019-12-04 2019-12-04 [facility] [id number] 08:52:00 08:52:[address] [facility] Medicine Outpati ent Clinics 2019-11-07 2019-11-07 [facility] [id number] 15:00:00 15:00:00 t [facility] Medicine l Medicine Outpati ent Clinics 2019-08-20 2019-08-20 [facility] [id number] 08:12:00 08:12:00 t [facility] Medicine l Medicine Outpati ent Clinics 2019-08-14 2019-08-14 [facility] [id number] 11:00:00 11:00:00 t [facility] Medicine l Medicine Outpati ent Clinics 2019-07-08 2019-07-09 Outpatient [place] [id number] [facility] 13:31:00 04:59:00 [facility] 00 l [facility] 2019-07-08 2019-07-08 Outpatient YALLAMPALLI [facility] [id number] [facility] 08:31:00 23:59:00 , [facility] 2019-07-08 2019-07-08 [facility] [id number] 13:11:00 13:11:00 t [facility] Medicine l Medicine Outpati ent Clinics 2019-05-22 2019-05-22 [facility] [id number] 21:07:00 21:07:00 t [facility] Medicine l Medicine Outpati ent Clinics 2019-05-22 2019-05-22 [facility] [id number] 09:30:00 09:30:00 t [facility] Medicine l Medicine Outpati ent Clinics 2019-05-20 2019-05-20 [facility] [id number] 08:57:00 08:57:00 t [facility] Medicine l Medicine Outpati ent Clinics 2019-05-16 2019-05-16 [facility] [id number] 14:55:00 14:55:00 t [facility] s [facility] Medicine l Medicine Outpati ent Clinics 2019-05-07 2019-05-07 [facility] [id number] 15:15:00 15:15:00 t [facility] s [facility] l Medicine Outpati ent Clinics 2017-02-14 2017-02-14 Emergency nullFlavo [facility] [id number] [facility] 15:33:00 19:15:00 r [place] 03 l [facility] 2016-09-07 2016-09-07 Emergency nullFlavo [facility] [id number] Memoria 01:43:00 06:42:00 r Jah 02 l [facility] 2015-03-28 2015-03-28 EC nullFlavo [facility] [id number] [facility]oria 05:42:00 12:26:00 Emergency r Jah 01 l [facility] 2013-03-14 2013-03-14 Outpatient nullFlavo [facility] [id number] Memoria 10:55:00 23:59:00 r [place] 00 l [place] Results Test Description Test Time Test Comments Results Result [facility] e Comments TISSUE EXAM 2021-03-09 Surgical Pathology Report 13:13:45 Case: [id number] Authorizing Provider: Bairon Balderas MD Collected: 12/10/2020 01:53 PM Ordering Location: [facility] Received: 12/10/2020 02:08 PM SERVICES Pathologist: Gretel Saenz MD Specimens: A) - Breast, Left, mastectomy, short stitch superior, long stitch lateral for margin evaluation B) - Breast, Left, additional tissue 12 o' clock near clavicle stitch olamide true margin C) - Axilla, Left, left axillary contents D) - Breast, Left, left breast deep margin over tumor; stitch mahoney true markin REASON FOR ADDENDUM : TO REPORT OTILIO TYPE ANALYSIS RESULTSTUMOR MUTATIONAL BURDEN : INTERMEDIATEPAN-TRK : NOT EXPRESSEDNO ABNORMALITIES IN FOLLOWING GENES : BRCA1, BRCA2, ERBB2, ESR1, [id number] scanned [facility] ReportAddendum electronically signed by Gretel Saenz MD on 03/09/2021 at 1:13 PMREASON FOR ADDENDUM : TO REPORT RESULTS OF MET AND PTENMET AMPLIFICATION : NOT DETECTED - MET (7q31) SIGNALS PER NUCLEUS : 2.1 - CEN7 SIGNALS PER NUCLEUS : 1.8 - MET/CEN7 SIGNAL RATIO : 1.1PTEN DELETION : DETECTEDSee scanned [facility] ReportAddendum electronically signed by Gretel Saenz MD on 03/02/2021 at 9:35 AMREASON FOR ADDENDUM: TO REPORT PD-L1 RESULT.PD-L1 22C3 FDA (KEYTRUDA) FOR TNBC : CPS <10NO PD-L1 EXPRESSIONCombined Positive Score : 4See scanned [facility] Result Addendum electronically signed by Gretel Saenz MD on 02/25/2021 at 9:29 AMThe addendum is being issued to report the results of immunohistochemistry (IHC) testing for Mismatch Repair (MMR) Proteins, which has been performed at the request of the oncologist.The diagnosis remains unchanged.IHC testing for all four MMR proteins was performed on selected block A11 with appropriate controls.RESULTSMLH1: Intact nuclear expressionMSH2: Intact nuclear expressionMSH6: Intact nuclear expressionPMS2: Intact nuclear expressionIHC InterpretationNo loss of nuclear expression of MMR proteins: 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) 59964 X 1, 65717 x 3 Addendum electronically signed by Gretel Saenz MD on 02/22/2021 at 9:17 AMREASON FOR ADDENDUM: TO REPORT HER2 FISH RESULT.HER2 AMPLIFICATION: NEGATIVE (NON-AMPLIFIED)RATIO (HER2:CEP17): 1.2AVERAGE NUMBER HER2 SIGNALS/ NUCLEUS: 3.0AVERAGE NUMBER [id number] SIGNALS/NUCLEUS: 2.5See scanned [facility] Result Addendum electronically signed by Gretel Saenz MD on 12/22/2020 at 9:02 AMA. 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 - FOCALLY INVOLVING THE UNDERLYING SKELETAL MUSCLE - GREATEST MACROSCOPIC (GROSS) MEASUREMENT : 29MM - ASSOCIATED WITH FOCAL NECROSIS - ASSOCIATED WITH FOCAL CALCIFICATIONS - HISTOLOGIC GRADE : 3/3 (3 + 3 + 3) BY ESBR CRITERIA - MITOTIC COUNT : 27 MITOSIS PER 10 HPF'S - LYMPHATIC INVASION IS SEEN - TUMOR INFILTRATING LYMPHOCYTES, LOW - SURGICAL MARGINS : NEGATIVE - CLOSEST DEEP : 0.4MM - SEE PART D FOR FINAL DEEP MARGIN - ALL OTHERS MARGINS > 10MM - BIOPSY SITE CHANGES (CLIP X 1) IDENTIFIED - AREAS OF PRIOR SURGICAL SITE CHANGES - NO INSITU COMPONENT IDENTIFIED - BENIGN BREAST TISSUE - BENIGN SKIN WITH SCARRINGB. BREAST, LEFT ADDITIONAL TISSUE / MARGIN, EXCISION - FIBROFATTY TISSUE AND SKELETAL MUSCLE - WITH FOREIGN BODY GIANT CELL REACTION - TINY BONY SPICULES - NEGATIVE FOR CARCINOMAC. LYMPH NODES, LEFT AXILLA, EXCISION - NINE OF TEN LYMPH NODES WITH METASTATIC CARCINOMA (9/10) - WITH EXTENSIVE EXTRANODAL EXTENSION AND MATTED NODES - WITH CENTRAL AREAS OF NECROSIS - LARGEST FOCUS : APPORX. 30MM D. BREAST, LEFT, DEEP MARGIN OVER TUMOR, EXCISION - SKELETAL MUSCLE AND FIBROFATTY TISSUE - WITH FOREIGN BODY GIANT CELL REACTION - NEGATIVE FOR CARCINOMA Signing Pathologist Direct Phone Line: [phone] y signed by Gretel Saenz MD on 12/15/2020 at 9:31 AMTUMOR STAGING (PATHOLOGY) S/P NEOADJUVANT THERAPYAnatomic site of tumor : LEFT CHEST WALL / BREASTHistologic type : Infiltrating ductal carcinoma, no special typeHistologic grade : G3, poorly differentiatedTumor size : 29mmPrimary tumor (T) : [id number] node (N) : [id number] : NegativeLYMPH NODE SUMMARYTotal # of sentinel lymph nodes : 0Total # of non-sentinel lymph nodes : 10Total # of positive non-sentinel lymph nodes : 9BIOMARKERS PERFORMED ON SECTION 11 ESTROGEN RECEPTOR: NEGATIVEProportion score: 1/5Intensity score: 1/3SUMMARY: < 1% POSITIVE, WEAK INTENSITY PROGESTERONE RECEPTOR: NEGATIVEProportion score: 1/5Intensity score: 1/3SUMMARY: < 1% POSITIVE, WEAK INTENSITYHER 2 OVER-EXPRESSION: NEGATIVE (SCORE: 1+) - TISSUE SENT TO FISH FOR NEGATIVE CONFIRMATION Ki67 (Proliferation marker): 78% (cut off-20%)INVASIVE CARCINOMA OF THE BREAST: ResectionINVASIVE CARCINOMA OF THE BREAST: COMPLETE EXCISION - All [id number] Edition - Protocol posted: 06/19/2019SPECIMEN Procedure: Excision (less than total mastectomy) Specimen Laterality: Left TUMOR Histologic Type: Invasive carcinoma of no special type (ductal) Glandular (Acinar) / Tubular Differentiation: Score 3 Nuclear Pleomorphism: Score 3 Mitotic Rate: Score 3 Overall Grade: Grade 3 (scores of 8 or 9) Tumor Size: Greatest dimension of largest invasive focus (Millimeters): 29 mm Tumor Focality: Single focus of invasive carcinoma Ductal Carcinoma In Situ (DCIS): Not identified Tumor Extent: Skeletal Muscle: Carcinoma invades skeletal muscle Lymphovascular Invasion: Present Treatment Effect in the Breast: Probable or definite response to presurgical therapy in the invasive carcinoma Treatment Effect in the Lymph Nodes: Probable or definite response to presurgical therapy in metastatic carcinoma MARGINS Invasive Carcinoma Margins: Uninvolved by invasive carcinoma Distance from Closest Margin (Millimeters): 2.4 mm Closest Margin(s): Posterior LYMPH NODES Regional Lymph Nodes: Involved by tumor cells Number of Lymph Nodes with Macrometastases (> 2 mm): 9 Number of Lymph Nodes with Micrometastases (> 0.2 mm to 2 mm and / or > 200 cells): 0 Size of Largest Metastatic Deposit (Millimeters): 30 mm Extranodal Extension: Present Extent of Extranodal Extension: Greater than 2 mm Total Number of Lymph Nodes Examined: 10 PATHOLOGIC STAGE CLASSIFICATION (pTNM, AJCC 8th Edition) TNM Descriptors: r (recurrent) TNM Descriptors: y (post-treatment) Primary Tumor (pT): pT2 Regional Lymph Nodes (pN): pN2a SPECIAL STUDIES Breast Biomarker Testing Performed on Previous Biopsy: Estrogen Receptor (ER) Status: Negative Breast Biomarker Testing Performed on Previous Biopsy: Progesterone Receptor (PgR) Status: Negative Breast Biomarker Testing Performed on Previous Biopsy: HER2 (by immunohistochemistry): Negative (Score 1+) Breast Biomarker Testing Performed on Previous Biopsy: Ki-67 Percentage of Positive Nuclei: 78 % Testing Performed on Case Number: BLOCK A11 A. [id number] X 1; 20561 X 1; 35022 X 4B. 46688 X 1C. 21718 X 1D. 96060 X 1Malignant neoplasm of left breast in female, estrogen receptor negative, unspecified site of breast.A. Breast, leftB. Breast, Left, Additional tissue 12 o'clock near clavicle, stitch mahoney true marginC. Axilla, leftD. Breast, left Breast, left breast deep margin over tumorA. I0GC breast, left mastectomy:Tumor and clip x1 identified, close to deep edgeThese findings were reported by Dr. Saenz to Dr. Balderas on 12/10/2020 at 2:25 PMA-D. Performed.The interpretation of this case included the use of immunohistochemistry or special stains.BIOMARKERS PERFORMED ON BLOCK A11ER - NEGATIVEPR - NEGATIVEHER2 - [id number] - [facility]: FIXATION TIME FOR BIOMARKERS ASSESSMENTCollection date and time: 12/10/2020; 1353 HRSPlaced in fixative date and time: 12/10/2020; 1425 HRSRemoved from formalin date and time: 12/12/2020; 0700 HRSMethodology:Fixation type and length: tissue was fixed in 10% neutral buffered formalin for a minimal of at least 6 hours and not longer than 72 hours.Antibody and Assay Methodology: Antibodies for ER, PgR, Her2 and Ki67 were assessed using clones SP1, 1E2, 4B5 (FDA Approved Cut Off Pathway) and 30-9 respectively utilizing the ultraView [place] DAB Detection Kit from [employer] [place], [place].Control Slides Examined: In-house known ER, [place], HER2 and Ki67 positive controls were evaluated along with test tissue. These control slides run alongside of the patients sample show appropriate staining.Interpretive Criteria: The staining results are according to the ASCO/CAP guidelines for HER2 (see Yovana CESPEDES, Day Maldonado, et al. HER 2 Testing in Breast Cancer: ASCO/CAP Focused Update. Arch Pathol Lab Med. 2018;142(11):0960-9190. doi:10.5858/arpa.2018-090 2-SA) and ER/WV (see Carmen Ziegler, Monica Solis, et al. ER and WV Testing in Breast Cancer: ASCO/CAP Guideline Update. J Clin Oncol. 2020;38(12):3142-6252. doi:10.1200/JCO.19.16540) .By ASCO/CAP guidelines, ER and [place] "positive" requires greater or equal to 1% tumor cells showing nuclear staining. Tumor showing 1% - 10% tumor cells staining for ER are designated " ER Low Positive".HER 2 allyssa "positive" (3+) requires circumferential membrane staining that is complete and intense within more than 10% of the invasive tumor cells. HER 2 allyssa "equivocal" (2+) requires complete membrane staining that is weak / moderately intense in >10% of invasive tumor cells. HER 2 allyssa "negative" (1+) requires incomplete, faint membrane staining in >10% of invasive tumor cells and HER 2 allyssa "negative" (0) requires no staining or faint incomplete membrane staining in <= 10% of invasive tumor cells.The ER/WV Proportion Score indicates the proportion of positive staining tumor cells (0 = none; 1 < 1/100; 2 = 1/100-1/10; 3 = >1/10-1/3; 4 = >1/3-2/3; 5> 2/3). The intensity score indicates the average intensity of positive staining tumor cells (0 = none; 1 = weak; 2 = intermediate; 3 = strong). For the purpose of defining "positive", the proportion and intensity scores were added to obtain a total score (range 0-8). ER and PgR "positive" (total score >2) were defined in studies correlating IHC total scores with clinical outcome in patients receiving hormonal therapy (see: Modern Pathol 11:155, 1997; J Clin Oncol 17:1474, 1998; Int J Cancer 89:111, 1999; Breast Cancer Res Treat 76:S36[abst#30], 2002).Immunohistochemistr y was performed on paraffin sections of breast tissue for the factors listed. The immunostaining signals were expressed as scores representing the estimated proportion and intensity of positive tumor cells. Appropriate positive and negative controls were included in the evaluation.COMMENTER low positive (1%-10% positive) - The cancer in this sample has a low level (1%10%) of ER expression by IHC. There are limited data on the overall benefit of endocrine therapies for patients with low level (1%10%) ER expression, but they currently suggest possible benefit, so patients are considered eligible for endocrine treatment. There are data that suggest invasive cancers with these results are heterogeneous in both behavior and biology and often have gene expression profiles more similar to ER-negative cancers.ER (0%-10%) and no internal control - No internal controls are present, but external controls are appropriately positive. If needed, testing another specimen that contains internal controls may be warranted for confirmation of ER status.Immunohistochemist ry technical testing was performed at [facility], Pathology Laboratory where it was developed and its performance characteristics were determined. It has not been cleared or approved by the U.S. Food and Drug Administration. The FDA has determined that such clearance or approval is not necessary. The test is used for clinical purposes. It should not be regarded as investigational or for research. This laboratory is certified under the Clinical Laboratory Improvement Amendments of 1988 (CLIA-88) as qualified to perform high complexity clinical laboratory testing. [facility], Department of Pathology, [address] [place] [address], [facility], [address] [place] [address], [facility], [address] [place] [address], a. Received fresh labeled with the patient's name, MRN and "breast, left" is a 215g, 7.5 cm (superior-inferior) x 23.5 cm (medial-lateral) x 3.0 cm (superficial-deep) left repeat mastectomy with a 15.0 x 5.0 cm attached echeverria-pink skin ellipse without areola and nipple. There is a short stitch designating superior and a long stitch designating lateral.The breast is serially sectioned from medial to lateral into 17 slices. The cut surface displays a 2.6 cm (superior-inferior) x 2.9 cm (medial-lateral) x 2.5 cm (superficial-deep) echeverria-pink fibrotic well-circumscribed mass located in slices 12-13. The mass is 2.5 cm from the superficial superior margin, 3.5 cm from the superficial inferior margin and abuts the deep margin. The specimen is x-rayed and a metallic-adames C shaped clip is identified within slice 13.The remaining breast tissue is 80% adipose tissue and 20% fibrous tissue. No other discrete mass is identified. [facility] sections are submitted.Time in formalin: 12/10/20 at 3:00 PM.Ink code:Blue: Superficial superior margin Red: Superficial inferior marginBlack: DeepSection code:A1: Perpendicular sections of the medial marginA2: Fibrotic area from slice 5A3: Fibrotic area from slice 6A4: Fibrotic area with adipose nodule from slice 8A5: Fibrotic area from slice 9A6: Fibrotic area from slice 54B4-M6: Bookend sections to mass from slice 11 submitted superior to inferiorA9: Superficial superior margin with skin from slice 12A10: Superficial inferior margin with skin from slice 00F32-V16: Mass from superior to inferior with deep margin from slice 36F52-D20: Thinned section of mass from slice 12, submitted superior to inferior with deep rskiygB34: Superficial superior margin with skin from slice 13A16: Superficial inferior margin with skin from slice 22U62-O42: Mass from superior to inferior with deep margin from slice 13, area around aqhxJ93-I36: Thinned section of mass from slice 13, submitted superior to inferior with deep gnwzfgT37-P41: Bookend sections to mass from slice 14 submitted superior to uxwujzpoM99: Fibrotic area with adipose nodule from slice 16A24: Perpendicular sections of the lateral marginB. Received in formalin labeled with the patient's name, accession number and "breast, left" is a 16 gm irregular piece of fibrofatty tissue measuring 4.5 x 4.5 x 2 cm with one stitch designating the true margin.The portion with the stitch is slightly scabrous to hernández-white and is smooth, and the opposite surface is echeverria-yellow and scabrous. The specimen is serially sectioned to reveal 95% adipose tissue and 5% fibrous tissue. No discrete lesion is identified.Ink code: True margin black and opposite surface orange.[facility] sections are submitted from the specimen in cassettes B1-B7.C. Received in formalin labeled with the patient's name, accession number and "left axilla" is a 40 gm, 7 x 6.5 x 2 cm, irregular piece of fibrofatty tissue with an undesignated suture at one end. Approximately two matted lymph nodes are identified measuring 3 x 2.5 x 1.5 cm, which on cut surface display necrotic, hernández-white to echeverria-yellow tissue. Multiple possible lymph nodes are identified ranging from 0.5 to 2.5 cm in greatest dimension. The area with the suture tags the largest node, which is hernández-white, hard, necrotic, yellow tissue on cut surface.Ink code: Sutured portion of the specimen inked blue.[facility] sections are submitted from the specimen.Section code: C1, five whole possible nodes; C2, one indurated hernándze-white to echeverria-yellow area, bisected; C3, telephone sales representative sections of the matted nodes; C4, one bisected possible node; C5-C6, largest node representatively submitted with the inked soft tissue included.The specimen is radiographed, and no clips are identified.D. Received in formalin labeled with the patient's name, accession number and "breast, left (On the requisition it says left breast deep margin over to tumor, stitch mahoney true margin, but on the container it is received in formalin labeled with "breast, left")" is a 3 gm irregular piece of fibrofatty tissue measuring 3 x 2 x 0.2 cm with a stitch on one surface designating the true margin. There are a few pieces of muscle associated with the specimen. The specimen is serially sectioned to reveal 60% of adipose and 40% of muscular tissue. There are no discrete masses identified.Ink code: True margin inked black and opposite surface orange.The specimen is submitted in its entirety in cassettes D1-D4. KM/ew POCT-GLUCOSE METER 2020-12-12 07:24:00 Test Item Value Reference Range Interpretation Comme nts POC-GLUCOSE METER (BEAKER) 138 mg/dL 70-110 H : TESTED AT [facility] [address] [facility] (test code = 1538) [facility], [address]: Geomorphology Teacher/Techni ang ID = [id number] for Lisbeth Paez BASIC METABOLIC [id number] 06:41:00 Test Item Value Reference Range Interpretation Comments SODIUM (BEAKER) 138 meq/L 136-145 (test code = 381) POTASSIUM (BEAKER) 3.6 meq/L 3.5-5.1 (test code = 379) CHLORIDE (BEAKER) 108 meq/L 98-107 H (test code = 382) CO2 (BEAKER) (test 23 meq/L 22-29 code = 355) BLOOD UREA NITROGEN 7 mg/dL 7-21 (BEAKER) (test code = 354) CREATININE (BEAKER) 0.68 mg/dL 0.57-1.25 (test code = 358) GLUCOSE RANDOM 159 mg/dL 70-105 H (BEAKER) (test code = 652) CALCIUM (BEAKER) 8.5 mg/dL 8.4-10.2 (test code = 697) EGFR (BEAKER) (test 108 mL/min/1.73 ESTIM ATED GFR IS code = 1092) sq m NOT ACCURATE CREATININE CLEARANCE IN PREDICTING GLOMERULAR FILTRATION RATE . ESTIMATED GFR I S NOT APPLICABLE FOR DIALYSIS PATIEN TS. Geomorphology Teacher ID - RALF [id number] 06:41:00 Test Item Value Reference Range Interpretation Comments MAGNESIUM (BEAKER) (test code = 1.5 mg/dL 1.6-2.6 L 627) Geomorphology Teacher ID - RALF [id number] 06:41:00 Test Item Value Reference Range Interpretation Comments PHOSPHORUS (BEAKER) (test code = 1.9 mg/dL 2.3-4.7 L 604) Geomorphology Teacher ID - RALF [facility] W/PLT COUNT & AUTO [id number] 06:12:00 Test Item Value Reference Range Interpretation Comments WHITE BLOOD CELL COUNT (BEAKER) 6.5 K/ L 3.5-10.5 (test code = 775) RED BLOOD CELL COUNT (BEAKER) 3.17 M/ L 3.93-5.22 L (test code = 761) HEMOGLOBIN (BEAKER) (test code = 9.5 GM/DL 11.2-15.7 L 410) HEMATOCRIT (BEAKER) (test code = 28.7 % 34.1-44.9 L 411) MEAN CORPUSCULAR VOLUME (BEAKER) 90.5 fL 79.4-94.8 (test code = 753) MEAN CORPUSCULAR HEMOGLOBIN 30.0 pg 25.6-32.2 (BEAKER) (test code = 751) MEAN CORPUSCULAR HEMOGLOBIN CONC 33.1 GM/DL 32.2-35.5 (BEAKER) (test code = 752) RED CELL DISTRIBUTION WIDTH 15.3 % 11.7-14.4 H (BEAKER) (test code = 412) PLATELET COUNT (BEAKER) (test 259 K/CU MM 150-450 code = 756) MEAN PLATELET VOLUME (BEAKER) 8.8 fL 9.4-12.3 L (test code = 754) NUCLEATED RED BLOOD CELLS 0 /100 WBC 0-0 (BEAKER) (test code = 413) NEUTROPHILS RELATIVE PERCENT 61 % (BEAKER) (test code = 429) LYMPHOCYTES RELATIVE PERCENT 25 % (BEAKER) (test code = 430) MONOCYTES RELATIVE PERCENT 13 % (BEAKER) (test code = 431) EOSINOPHILS RELATIVE PERCENT 1 % (BEAKER) (test code = 432) BASOPHILS RELATIVE PERCENT 0 % (BEAKER) (test code = 437) NEUTROPHILS ABSOLUTE COUNT 3.96 K/ L 1.56-6.13 (BEAKER) (test code = 670) LYMPHOCYTES ABSOLUTE COUNT 1.65 K/ L 1.18-3.74 (BEAKER) (test code = 414) MONOCYTES ABSOLUTE COUNT (BEAKER) 0.81 K/ L 0.24-0.36 H (test code = 415) EOSINOPHILS ABSOLUTE COUNT 0.03 K/ L 0.04-0.36 L (BEAKER) (test code = 416) BASOPHILS ABSOLUTE COUNT (BEAKER) 0.02 K/ L 0.01-0.08 (test code = 417) IMMATURE GRANULOCYTES-RELATIVE 0 % 0-1 PERCENT (BEAKER) (test code = 2801) CALCIUM, [id number] 06:07:00 Test Item Value Reference Range Interpretation Comments CALCIUM IONIZED (BEAKER) (test 1.08 mmol/L 1.12-1.27 L code = 698) PH, BLOOD (BEAKER) (test code = 7.44 1810) POCT-GLUCOSE [id number] 22:12:00 Test Item Value Reference Range Interpretation Comments POC-GLUCOSE METER 219 mg/dL 70-110 H : TESTED A T [facility] [address] (BEAKER) (test code = [facility], [employer]) [address]: Geomorphology Teacher/Techni ang ID = [id number] for Carlos Manuel Coello POCT-GLUCOSE [id number] 15:48:00 Test Item Value Reference Range Interpretation Comments POC-GLUCOSE METER 183 mg/dL 70-110 H : TESTED A T [facility] [address] (BEAKER) (test code = [facility], [employer]) [address]: Geomorphology Teacher/Techni ang ID = [id number] for Ag Jesenia garayn POCT-GLUCOSE [id number] 11:07:00 Test Item Value Reference Range Interpretation Comments POC-GLUCOSE METER 188 mg/dL 70-110 H : TESTED A T [facility] [address] (BEAKER) (test code = [facility], 153) [address]: Geomorphology Teacher/Techni ang ID = [id number] for Ag tanisha, Lisbeth POCT-GLUCOSE [id number] 08:00:00 Test Item Value Reference Range Interpretation Comments POC-GLUCOSE METER 193 mg/dL 70-110 H : TESTED A T [facility] [address] (BEAKER) (test code = [facility], 1538) [address]: Geomorphology Teacher/Techni ang ID = [id number] for Lisbeth Tran POCT-GLUCOSE [id number] 00:26:00 Test Item Value Reference Range Interpretation Comments POC-GLUCOSE METER 221 mg/dL 70-110 H : TESTED A T [facility] [address] (BEAKER) (test code = [facility], 1538) [address]: Geomorphology Teacher/Techni ang ID = [id number] for BEKA HARVEY POCT-GLUCOSE [id number] 21:04:00 Test Item Value Reference Range Interpretation Comments POC-GLUCOSE METER 203 mg/dL 70-110 H : TESTED A T [facility] [address] (BEAKER) (test code = [facility], 1538) [address]: Geomorphology Teacher/Techni ang ID = [id number] for PEREZ CRUZ POCT-GLUCOSE [id number] 10:45:00 Test Item Value Reference Range Interpretation Comments POC-GLUCOSE METER 140 mg/dL 70-110 H : TESTED A T [facility] [address] (BEAKER) (test code = [facility], 1538) [address]: Geomorphology Teacher/Techni ang ID = [id number] for CONNIE MAYORGA SARS-COV2/RT-PCR ([facility])2020-12-10 03:39:00 Test Item Value Reference Range Interpretation Comments SARS-COV2/RT-PCR (test code = Negative Negative [id number]) Negative result for this test determines that SARS-CoV-2 RNA was not present in the specimen above the Limit of Detection (LOD). However, Negative results do not preclude SARS-CoV-2 infection and should not be used as the sole basis for treatment or patient management decisions. Negative results must be combined with clinical observations, patient history, and epidemiological information. A false negative result may occur if a specimen is improperly collected, transported, or handled. A false negative result should be considered if patient's recent exposures or clinical presentation indicate that COVID-19 (SARS-CoV-2) is likely and diagnostic tests for other causes of illness are negative. Re-testing should be considered in cases of suspected false negatives.The limit of detection for this assay is 100 copies/mL.This SARS-CoV-2 test is a real-time RT_PCR test intended for the qualitative detection of nucleic acid from SARS-CoV-2 in a nasopharyngeal swab specimen collected from individuals suspected of COVID-19 by their healthcare provider.This test has not been Food and Drug Administration (FDA) cleared or approved. This is a modified version of an approved Emergency Use Authorization (EUA) and is in the process of review by the FDA. Once authorized by the FDA, the issued EUA will be effective until the declaration that circumstances exist justifying the authorization of the emergency use of in vitro diagnostic tests for detection and/or diagnosis of COVID-19 is terminated under Section 564(b)(2) of the Act or the EUA is revoked under Section 564(g) of the Act.Testing was performedusing the Mo SARS-CoV-2 assay.Fact Sheet for Healthcare Providers:https://www.[employer]/josué/RT SARS-CoV-2 HCP Fact Sheet 51- 602948.pdfFact Sheet for Healthcare Patients:https://www.[employer]/josué/RT SARS-CoV-2 Patient Fact Sheet EN 51-899817U2.ihuQNECQVFJYFQT0774-03-04 13:09:00 Test Item Value Reference Range Interpretation Comments SODIUM (BEAKER) (test code = 381) 142 meq/L 136-145 POTASSIUM (BEAKER) (test code = 4.1 meq/L 3.5-5.1 379) CHLORIDE (BEAKER) (test code = 382) 105 meq/L 98-107 CO2 (BEAKER) (test code = 355) 25 meq/L 22-29 Geomorphology Teacher KENNETH ATKINS [id number] 13:09:00 Test Item Value Reference Range Interpretation Comments GLUCOSE RANDOM (BEAKER) (test code 161 mg/dL 70-105 H = 652) Geomorphology Teacher KENNETH ATKINS FBUN AND CREATININE [id number] 13:09:00 Test Item Value Reference Range Interpretation Comments BLOOD UREA NITROGEN 12 mg/dL 7-21 (BEAKER) (test code = 354) CREATININE (BEAKER) 0.75 mg/dL 0.57-1.25 (test code = 358) BUN/CREAT RATIO 16 For a normal (BEAKER) (test code individu al on a = [id number]) normal diet, t he reference inter zara for the mass ra corina ranges between 12:1 and 20:1 (BUN i n mg/dL/creatinin e in mg/dL) EGFR (KYLIE) (test 96 mL/min/1.73 ESTIMA ALVARO GFR IS code = 1092) sq m NOT ACCURATE CREATININE CLEARANCE IN PREDICTING GLOMERULAR FILTRATION RATE . ESTIMATED GFR I S NOT APPLICABLE FOR DIALYSIS PATIEN TS. Geomorphology Teacher ID - LAWLEY [id number] 12:46:00 Test Item Value Reference Range Interpretation Comments HEMOGLOBIN (KYLIE) (test code = 12.0 GM/DL 11.2-15.7 410) Geomorphology Teacher ID - [id number] 14:23:00 Test Item Value Reference Range Interpretation Comments PT (test code = PT) 13.8 s 12.0-14.7 [id number] 14:23:00 Test Item Value Reference Range Interpretation Comments INR (test code = INR) 1.06 1 0.85-1.17 [id number] 14:23:00 Test Item Value Reference Range Interpretation Comments PTT (test code = PTT) 28.8 s 22.9-35.8 [facility]PmcnkomSLHUGBLKGI8828-02-78 14:23:00 Test Item Value Reference Range Interpretation Comments PT (test code = PT) 13.8 s 12.0-14.7 [facility] CenterFybxslfWULCVQPDST2888-57-94 14:23:00 Test Item Value Reference Range Interpretation Comments INR (test code = INR) 1.06 1 0.85-1.17 [facility] Cent[id number] 14:23:00 Test Item Value Reference Range Interpretation Comments PTT (test code = PTT) 28.8 s 22.9-35.8 [facility] CenterMlkuimqGESCHKIOUY3395-13-87 14:23:00 Test Item Value Reference Range Interpretation Comments PT (test code = PT) 13.8 s 12.0-14.7 [facility] CenterEnrcfspKQYAXVNSED6104-31-83 14:23:00 Test Item Value Reference Range Interpretation Comments INR (test code = INR) 1.06 1 0.85-1.17 [facility] CenterEeyafxuMXJEHBBCQV3559-40-71 14:23:00 Test Item Value Reference Range Interpretation Comments PTT (test code = PTT) 28.8 s 22.9-35.8 [facility] CenterNdycnvuGZNSSNUPYH5027-80-64 14:23:00 Test Item Value Reference Range Interpretation Comments PT (test code = PT) 13.8 s 12.0-14.7 [facility] HospitalCeivxqxNMFNCFEYAF7594-47-36 14:23:00 Test Item Value Reference Range Interpretation Comments INR (test code = INR) 1.06 1 0.85-1.17 [facility] CenterSaiikamOLWNZTRMNY5337-56-16 14:23:00 Test Item Value Reference Range Interpretation Comments PTT (test code = PTT) 28.8 s 22.9-35.8 [facility] HospitalKmhqwphXCVXHAWUWI6511-57-77 14:23:00 Test Item Value Reference Range Interpretation Comments PT (test code = PT) 13.8 s 12.0-14.7 [facility] HospitalZijztbwFCTCXPOZOX9631-41-33 14:23:00 Test Item Value Reference Range Interpretation Comments INR (test code = INR) 1.06 1 0.85-1.17 [facility] CenterHpkgqkmJQUAYOGOLH6014-20-47 14:23:00 Test Item Value Reference Range Interpretation Comments PTT (test code = PTT) 28.8 s 22.9-35.8 [facility] HospitalBnleotnSONDTJPCAY7183-81-65 14:23:00 Test Item Value Reference Range Interpretation Comments PT (test code = PT) 13.8 s 12.0-14.7 [facility] HospitalReidpinMPFFVNNJHI3690-33-07 14:23:00 Test Item Value Reference Range Interpretation Comments INR (test code = INR) 1.06 1 0.85-1.17 [facility] HospitalPxizscrQSRUWKGENE7844-31-60 14:23:00 Test Item Value Reference Range Interpretation Comments PTT (test code = PTT) 28.8 s 22.9-35.8 [facility] [id number] 07:00:00Performed (03/28/15 1:00 AM) [facility] [id number] 07:00:00Negative (03/28/15 1:00 AM) [facility] [id number] 07:00:000.2[facility] [id number] 07:00:00Negative (03/28/15 1:00 AM)[facility] [id number] 07:00:00Negative *NA*(03/28/15 1:00 AM)[facility] [id number] 07:00:00Negative (03/28/15 1:00 AM)[facility] [id number] 07:00:00Trace *ABN*(03/28/15 1:00 AM)[facility] [id number] 07:00:00Negative (03/28/15 1:00 AM)[facility] [id number] 07:00:00 Test Item Value Reference Range Interpretation Comments UA pH (test code = UA pH) 5.5 1 5.0-8.0 [facility] [id number] 07:00:00Negative (03/28/15 1:00 AM) [facility] [id number] 07:00:00Slight Cloudy (03/28/15 1:00 AM)[facility] [id number] 07:00:00>=1.030 *ABN*(03/28/15 1:00 AM)[facility] [id number] 07:00:00Yellow *NA*(03/28/15 1:00 AM)[facility] [id number] 07:00:00Performed (03/28/15 1:00 AM)[facility] [id number] 07:00:00Negative (03/28/15 1:00 AM)[facility] [id number] 07:00:000.2[facility] [id number] 07:00:00Negative (03/28/15 1:00 AM)[facility] [id number] 07:00:00Negative *NA*(03/28/15 1:00 AM)[facility] [id number] 07:00:00Negative (03/28/15 1:00 AM)[facility] [id number] 07:00:00Trace *ABN*(03/28/15 1:00 AM)[facility] [id number] 07:00:00Negative (03/28/15 1:00 AM)[facility] [id number] 07:00:00 Test Item Value Reference Range Interpretation Comments UA pH (test code = UA pH) 5.5 1 5.0-8.0 [facility] [id number] 07:00:00Negative (03/28/15 1:00 AM) [facility] [id number] 07:00:00Slight Cloudy (03/28/15 1:00 AM)[facility] [id number] 07:00:00>=1.030 *ABN*(03/28/15 1:00 AM)[facility] [id number] 07:00:00Yellow *NA*(03/28/15 1:00 AM)[facility] [id number] 07:00:00Performed (03/28/15 1:00 AM)[facility] [id number] 07:00:00Negative (03/28/15 1:00 AM)[facility] [id number] 07:00:000.2[facility] [id number] 07:00:00Negative (03/28/15 1:00 AM)[facility] [id number] 07:00:00Negative *NA*(03/28/15 1:00 AM)[facility] [id number] 07:00:00Negative (03/28/15 1:00 AM)[facility] [id number] 07:00:00Trace *ABN*(03/28/15 1:00 AM)[facility] [id number] 07:00:00Negative (03/28/15 1:00 AM)[facility] [id number] 07:00:00 Test Item Value Reference Range Interpretation Comments UA pH (test code = UA pH) 5.5 1 5.0-8.0 [facility] [id number] 07:00:00Negative (03/28/15 1:00 AM) [facility] [id number] 07:00:00Slight Cloudy (03/28/15 1:00 AM)[facility] [id number] 07:00:00>=1.030 *ABN*(03/28/15 1:00 AM)[facility] [id number] 07:00:00Yellow *NA*(03/28/15 1:00 AM)[facility] [id number] 07:00:00Performed (03/28/15 1:00 AM)[facility] [id number] 07:00:00Negative (03/28/15 1:00 AM)[facility] [id number] 07:00:000.2[facility] [id number] 07:00:00Negative (03/28/15 1:00 AM)[facility] [id number] 07:00:00Negative *NA*(03/28/15 1:00 AM)[facility] [id number] 07:00:00Negative (03/28/15 1:00 AM)[facility] [id number] 07:00:00Trace *ABN*(03/28/15 1:00 AM)[facility] [id number] 07:00:00Negative (03/28/15 1:00 AM)[facility] [id number] 07:00:00 Test Item Value Reference Range Interpretation Comments UA pH (test code = UA pH) 5.5 1 5.0-8.0 [facility] [id number] 07:00:00Negative (03/28/15 1:00 AM) [facility] [id number] 07:00:00Slight Cloudy (03/28/15 1:00 AM)[facility] GRIST0379-55-43 07:00:00>=1.030 *ABN*(03/28/15 1:00 AM)[facility] MGDTP5073-85-45 07:00:00Yellow *NA*(03/28/15 1:00 AM)[facility] TXCAS0613-37-34 07:00:00Performed (03/28/15 1:00 AM)[facility] CVYFI7039-76-64 07:00:00Negative (03/28/15 1:00 AM)[facility] WAQOZ2360-34-51 07:00:000.2[facility] BOXEG2201-85-69 07:00:00Negative (03/28/15 1:00 AM)[facility] IXJHB4053-23-99 07:00:00Negative *NA*(03/28/15 1:00 AM)[facility] AQTUL4648-50-32 07:00:00Negative (03/28/15 1:00 AM)[facility] OEYGW1746-34-87 07:00:00Trace *ABN*(03/28/15 1:00 AM)[facility] FRVGK0277-53-34 07:00:00Negative (03/28/15 1:00 AM)[facility] NRXHE9481-59-45 07:00:00 Test Item Value Reference Range Interpretation Comments UA pH (test code = UA pH) 5.5 1 5.0-8.0 [facility] HMUDI5901-04-34 07:00:00Negative (03/28/15 1:00 AM) [facility] YWZQV8017-06-18 07:00:00Slight Cloudy (03/28/15 1:00 AM)[facility] KRVHZ3195-00-49 07:00:00>=1.030 *ABN*(03/28/15 1:00 AM)[facility] SLLAG0954-54-84 07:00:00Yellow *NA*(03/28/15 1:00 AM)[facility] ZUROI6965-78-86 07:00:00Performed (03/28/15 1:00 AM)[facility] VKVCD6584-08-92 07:00:00Negative (03/28/15 1:00 AM)[facility] LVVDQ3547-64-52 07:00:000.2[facility] YOHGV5819-00-29 07:00:00Negative (03/28/15 1:00 AM)[facility] RKUSC5904-49-13 07:00:00Negative *NA*(03/28/15 1:00 AM)[facility] HAVZY4306-27-32 07:00:00Negative (03/28/15 1:00 AM)[facility] JKIYU8289-74-75 07:00:00Trace *ABN*(03/28/15 1:00 AM)[facility] WDAOB8287-77-57 07:00:00Negative (03/28/15 1:00 AM)[facility] ZUYDV4725-07-91 07:00:00 Test Item Value Reference Range Interpretation Comments UA pH (test code = UA pH) 5.5 1 5.0-8.0 [facility] YKCIZ0937-10-62 07:00:00Negative (03/28/15 1:00 AM) [facility] SNSUM0590-07-26 07:00:00Slight Cloudy (03/28/15 1:00 AM)[facility] RCBQO8122-51-55 07:00:00>=1.030 *ABN*(03/28/15 1:00 AM)[facility] DAGII1448-71-31 07:00:00Yellow *NA*(03/28/15 1:00 AM)[facility] FENEY0400-43-72 06:33:28436Kthzpimu HermannCHEM ZLREZ4190-27-51 06:33:0014[facility] YCVBD0208-56-66 06:33:007.8 [facility] XCMSX1785-06-68 06:33:001.2[facility]annCHE[facility] PANEL 2015-03-28 06:33:003.0[facility] YUTUS3791-38-95 06:33:0087[facility] QJWKZ7277-28-21 06:33:37117Teanihjn [facility]annCHEM KRCCR9436-89-90 06:33:000.3[facility] IQOYH0429-74-74 06:33:0026[facility] ELLOZ6230-29-04 06:33:008[facility] LBCOP0294-45-96 06:33:003.6 [facility] EIBZQ0443-51-05 06:33:008.9[facility] PANEL 2015-03-28 06:33:006.6[facility] NFULB6431-14-32 06:33:33380Zgopagat HermannCHEM MVWIW1481-20-16 06:33:0028[facility] LMSVN8301-91-39 06:33:000.88[facility] UCIBS0676-79-37 06:33:13686Vyaprjsg HermannCHEM SLRIT3629-40-79 06:33:003.8[facility] ZTDNF4667-60-34 06:33:0012 [facility] TPJPL1582-34-87 06:33:57827Ehjogqtb HermannHEMATOLOGY 2015-03-28 06:33:0050.4[facility] VidoaasJVCNDJNPGH3381-89-12 06:33:007.0[facility] BadbuubVCJRYLBSIJ5117-46-23 06:33:003.9[facility] ImwithuORIEWIAJYL4001-04-86 06:33:007.9[facility] HjezezgJIJPIDQHFH7456-16-87 06:33:0033.8[facility] Jah DDCPERLKDK7629-81-04 06:33:000.9[facility] AdzurgdLRGTGAXTQP3819-54-19 06:33:000.5 [facility] WknlphsOSYLGDBBOL6222-88-21 06:33:000.6[facility]annHEMATOLOGY 2015-03-28 06:33:000.1[facility] XedjoofIIXGZKODKM2473-15-90 06:33:002.6[facility] CunpqlwYMXARCFOEP1850-22-38 06:33:0013.3[facility] GmeihlzXFMMKMLUUI5541-33-31 06:33:004.70[facility] VjisfcbJDRUUFWZAS7248-72-63 06:33:007.7[facility] KZGLPKSVNQ8018-56-01 06:33:0013.0[facility] VexjzmhIYDHUDVIAO2765-84-41 06:33:00 32.5[facility] MutfijuITJMMGFQRF3633-08-20 06:33:0040.9[facility]annHEMATOLOGY 2015-03-28 06:33:00 Test Item Value Reference Range Interpretation Comments MCH (test code = MCH) 28.3 pg 27.0-31.0 [facility] GciybjuVNNGZPOTWF6704-40-65 06:33:0087.0[facility]annHEMAT[facility]Y 2015-03-28 06:33:008.2[facility] AipvphlWSCUJTUELF8157-87-63 06:33:46063Uyxbmhqe HermannCHEM MAXVH0423-12-74 06:33:97233Sbkdshfs [facility]annCHE[facility] IJYIG0411-96-42 06:33:0014[facility] JLICZ1063-29-08 06:33:007.8[facility]CHE[facility] CUYAB4272-63-77 06:33:001.2[facility]CHE[facility] JCKKZ4169-26-63 06:33:003.0 [facility] ZYBXU0511-34-32 06:33:0087[facility]annCHE[facility] PANEL 2015-03-28 06:33:92859Etjpyslb HermannCHEM BTNFS1690-12-31 06:33:000.3[facility]annCHE[facility] XBSCS0927-22-46 06:33:0026[facility]annCHE[facility] KPNPW0813-67-23 06:33:008[facility] XSNRR6352-96-52 06:33:003.6[facility]annCHE[facility] CFBVP2045-76-79 06:33:008.9[facility]annCHE[facility] WCYIK1742-71-74 06:33:006.6 [facility] CNSGA7662-48-78 06:33:35462Jbcdyjln [facility]annCHEM PANEL 2015-03-28 06:33:0028[facility]annCHE[facility] EDWQL0209-02-46 06:33:000.88[facility]CHE[facility] VMPLR8348-63-69 06:33:32346Fdvgmhvc HermannCHEM VBBUT2222-62-70 06:33:003.8[facility]CHE[facility] XEFLA6680-61-85 06:33:0012[facility]annCHE[facility] PBFFC5163-85-95 06:33:92416Tnpkiitd FlqbuveZGHEZBXVMX8406-65-01 06:33:0050.4 [facility] HktbljpVVETNPOZUX4082-41-09 06:33:007.0[facility]annHEMATOLOGY 2015-03-28 06:33:003.9[facility] WfbqsmlIJWUHVWXLV8757-74-31 06:33:007.9[facility] CabdiqnTCWLZUMRJI3511-96-37 06:33:0033.8[facility] BppmpxdSQQTDITYQU7498-92-00 06:33:000.9[facility] QstmghrKBXONYDFTS7522-16-05 06:33:000.5[facility] GVVJTQSCBP5897-25-89 06:33:000.6[facility] JmssvujRRNLAVOFOE0070-16-88 06:33:000.1 [facility] UmchgpvYUIFFMJOLT1133-77-29 06:33:002.6[facility]annHEMATOLOGY 2015-03-28 06:33:0013.3[facility] AdyduzuOXUOWEJUSF3090-94-18 06:33:004.70[facility] AtkdjxlYWAABWBVNN6549-79-29 06:33:007.7[facility] HgclgkbKOHOIJYSHL9619-06-89 06:33:0013.0[facility] BkiyejwGFSLJGFSLZ6978-99-87 06:33:0032.5[facility] Jah WPLPHVRJLH9842-69-20 06:33:0040.9[facility] HljzmjpINODPCJWFI8877-41-38 06:33:00 Test Item Value Reference Range Interpretation Comments MCH (test code = MCH) 28.3 pg 27.0-31.0 [facility] DqqauxyQUWLWWKVAU0476-67-18 06:33:0087.0[facility]annHEMAT[facility]Y 2015-03-28 06:33:008.2[facility] LlbpxxePQRSCHGNPF7834-60-53 06:33:97352Nminatuh HermannCHEM JZHLZ6170-41-45 06:33:02277Kryxoalp HermannCHEM KCDEU1828-66-73 06:33:0014[facility]CHE[facility] IUPOT4261-20-30 06:33:007.8[facility]annCHE[facility] CTATX6453-75-49 06:33:001.2[facility]CHE[facility] QUSYH6786-50-83 06:33:003.0 [facility] ZRWHN3237-05-01 06:33:0087[facility]annCHE[facility] PANEL 2015-03-28 06:33:03363Ybpxxmlh HermannCHEM JZMCC5141-55-04 06:33:000.3[facility]annCHE[facility] LYGGI9842-52-88 06:33:0026[facility]annCHE[facility] GILHX3974-26-16 06:33:008[facility]CHE[facility] EFRBM2482-97-44 06:33:003.6[facility]annCHE[facility] ROWDO0341-48-70 06:33:008.9[facility]annCHE[facility] SWRMZ6852-04-25 06:33:006.6 [facility]CHE[facility] CDETC5581-21-15 06:33:43790Sdgzghsx HermannCHEM PANEL 2015-03-28 06:33:0028[facility]CHE[facility] YTBYP1689-93-82 06:33:000.88[facility]annCHE[facility] ZEDEO4409-92-64 06:33:62336Pkedifxq [facility]annCHEM ANZUO4744-78-39 06:33:003.8[facility]annCHE[facility] OAGIP0655-10-54 06:33:0012[facility]CHE[facility] FSJCF6171-11-34 06:33:98208Tifwiqda SiflwgbGXHSFBGLVB1495-65-37 06:33:0050.4 [facility] XnhxzbwUGQQSAOALR3717-64-29 06:33:007.0[facility]annHEMATOLOGY 2015-03-28 06:33:003.9[facility] IjmzujdLYOIHWKTKM3971-07-18 06:33:007.9[facility] PqpyauiQSZYHEFJZE5710-11-05 06:33:0033.8[facility] KcvnzsmZGZKPXEWRV9234-25-93 06:33:000.9[facility] UabinmoWVKKBAFRQJ3116-72-51 06:33:000.5[facility] Jah FVSERPAJMK5932-91-30 06:33:000.6[facility] OrrfalrSWYECWFNWA6650-23-68 06:33:000.1 [facility] HfvvzrmERMGXWEQGS0190-80-53 06:33:002.6[facility]annHEMATOLOGY 2015-03-28 06:33:0013.3[facility] BwamicuDTVQYLGREX3930-60-61 06:33:004.70[facility] NjkyyhyBCGFJLTSZG7377-60-68 06:33:007.7[facility] OaqxktqPPRAWHSKPD3972-15-97 06:33:0013.0[facility] MfizttvGIWDWZHRQO2601-72-41 06:33:0032.5[facility] XEGUEAJGNC5944-43-93 06:33:0040.9[facility] ChltrktIXUMZHTRVG3994-42-97 06:33:00 Test Item Value Reference Range Interpretation Comments MCH (test code = MCH) 28.3 pg 27.0-31.0 [facility] ZknmoekPFJZCDZHYX8064-53-43 06:33:0087.0[facility]annHEMATOLOGY 2015-03-28 06:33:008.2[facility] ChkwqrvHCNPPYEIHO5681-51-20 06:33:16513Hnvzotqv HermannCHEM IFXIF6587-21-71 06:33:92135Mzdzpebz [facility]annCHE[facility] KGAFT3419-66-41 06:33:0014[facility]annCHE[facility] BNFNS5107-57-05 06:33:007.8[facility]CHE[facility] SGFEN0193-29-63 06:33:001.2[facility]annCHE[facility] CLKLY6536-25-74 06:33:003.0 [facility]CHE[facility] LGYZQ3589-24-83 06:33:0087[facility]annCHE[facility] PANEL 2015-03-28 06:33:49078Kgdmxgyv HermannCHEM ICWTH4159-82-00 06:33:000.3[facility]CHE[facility] POXBD2823-10-45 06:33:0026[facility] FLDWT6291-82-13 06:33:008[facility]CHE[facility] QQATE2639-43-76 06:33:003.6[facility]annCHE[facility] JJGVJ0033-86-67 06:33:008.9[facility]CHE[facility] DKWQU7215-88-36 06:33:006.6 [facility]CHE[facility] WCYYS3435-89-17 06:33:00250Cwnboqkq [facility]annCHEM PANEL 2015-03-28 06:33:0028[facility]annCHE[facility] AFLNU0914-75-76 06:33:000.88[facility]annCHE[facility] SQEQE0454-86-54 06:33:26161Ntvdmtgb [facility]annCHEM HGJBK7385-93-94 06:33:003.8[facility]CHE[facility] VPDQZ9857-27-45 06:33:0012[facility]annCHE[facility] DXKPI8777-11-83 06:33:24098Kvtijpjh UxusfknGWBCQRYNQB3484-40-97 06:33:0050.4 [facility] NlvjrfeMXKMVZWOZU3969-70-86 06:33:007.0[facility]annHEMATOLOGY 2015-03-28 06:33:003.9[facility] KzzysjnTFATZMAXSU1118-09-77 06:33:007.9[facility] XuisglbOZWDUZPHBY6081-53-81 06:33:0033.8[facility] HimqsndCXDFGKNUAF9484-61-29 06:33:000.9[facility] IsklrykMDTDLCRERR2535-27-04 06:33:000.5[facility] BCNPTAGQJZ8637-29-49 06:33:000.6[facility] EkhtuhwFENTKVNYYV4343-17-85 06:33:000.1 [facility] WtobgafWSQNWQEZRZ0359-56-40 06:33:002.6[facility]annHEMATOLOGY 2015-03-28 06:33:0013.3[facility] ScuujkaDGZDWFBWUH3987-67-94 06:33:004.70[facility] OmdeqomUHUTVREYUH4166-75-18 06:33:007.7[facility] PwunkjqVDPODAXNER5883-72-57 06:33:0013.0[facility] WllgsejCNIYMGSLTI5728-03-77 06:33:0032.5[facility] UHRKHJEOCI9002-83-51 06:33:0040.9[facility] BukkoynVCFYRZQHNX9385-77-86 06:33:00 Test Item Value Reference Range Interpretation Comments MCH (test code = MCH) 28.3 pg 27.0-31.0 [facility] CpfetxmTXRMQHNCLP3012-01-37 06:33:0087.0[facility]annHEMATOLOGY 2015-03-28 06:33:008.2[facility] EtahrboZJBUFFZQNN2693-94-11 06:33:09855[place] HermannCHEM PHXNK0751-17-48 06:33:27780Buzuuibm [facility]annCHEM XWOCY7547-39-57 06:33:0014[facility]CHE[facility] XGCUD4075-32-67 06:33:007.8[facility]annCHE[facility] CLASJ0920-81-39 06:33:001.2[facility]annCHE[facility] RXYPW1425-67-09 06:33:003.0 [facility]CHE[facility] GNSCJ1898-17-15 06:33:0087[facility]annCHE[facility] PANEL 2015-03-28 06:33:01789Mncixslw [facility]annCHEM FYHTX6185-53-39 06:33:000.3[facility]annCHE[facility] RBELO1383-50-69 06:33:0026[facility]annCHE[facility] NASGY3929-27-67 06:33:008[facility]CHE[facility] MUZJL4450-06-32 06:33:003.6[facility]annCHE[facility] LBIJC7019-21-80 06:33:008.9[facility]CHE[facility] UUINR0705-11-34 06:33:006.6 [facility]CHE[facility] ZVQBN9489-03-75 06:33:18743Xfuxgskr [facility]annCHEM PANEL 2015-03-28 06:33:0028[facility]CHE[facility] DNBEM1076-96-86 06:33:000.88[facility]annCHE[facility] WXORT9818-07-43 06:33:34514Fkelqtvd [facility]annCHE[facility] CPCNG7079-75-37 06:33:003.8[facility]annCHE[facility] PLAXA7177-94-60 06:33:0012[facility]CHE[facility] UAOSM7990-72-60 06:33:99259Pmhaehdk YrzutcxBNJBNBDSXU6394-73-89 06:33:0050.4 [facility] BlvvgdyINFBCVYZVT7343-56-26 06:33:007.0[facility]annHEMATOLOGY 2015-03-28 06:33:003.9[facility] NmdtcqbZRHOAVTYBQ2321-99-60 06:33:007.9[facility] WpznrktUDXOKAXWQB2485-09-83 06:33:0033.8[facility] BwgnwljNBHAYEMZXG7441-49-24 06:33:000.9[facility] CtfeuamKUEYLZTXNY4994-22-41 06:33:000.5[facility] Jah FLVHSWDWIZ9563-82-72 06:33:000.6[facility] HqfcdpoQPRYZVZJCA0472-75-78 06:33:000.1 [facility] QyywuiqAALVMXXSMR9927-50-92 06:33:002.6[facility]annHEMATOLOGY 2015-03-28 06:33:0013.3[facility] QqbzaauZNIAGDLWYW7387-32-38 06:33:004.70[facility] DmhaqvbQBGCQKUHDA9960-97-12 06:33:007.7[facility] QgvzcgfDZQOQWNMIC3743-01-43 06:33:0013.0[facility] HaffzuyTPMTCWRBCM1270-81-93 06:33:0032.5[facility] BKVTXBFGDV8341-76-20 06:33:0040.9[facility] NyudbybBBOFSINACH1621-71-13 06:33:00 Test Item Value Reference Range Interpretation Comments MCH (test code = MCH) 28.3 pg 27.0-31.0 [facility] WzeimncJVCPKFIXNP5260-14-70 06:33:0087.0[facility]annHEMATOLOGY 2015-03-28 06:33:008.2[facility] TrnrmyiPFQOBVOHEN1370-62-83 06:33:18088Lthumymm HermannCHEM SSAGO2582-31-88 06:33:08181Yirhwtob [facility]annCHEM UQGRB3560-67-91 06:33:0014[facility]annCHE[facility] OBRAA2159-92-04 06:33:007.8[facility]annCHE[facility] DXYBJ6540-98-87 06:33:001.2[facility]annCHEM JKISN7291-77-82 06:33:003.0 [facility]CHE[facility] ATHBT6818-88-27 06:33:0087[facility]annCHEM PANEL 2015-03-28 06:33:93034Czddzyqw [facility]annCHEM HDZWT5360-55-06 06:33:000.3[facility]annCHE[facility] NWTRG6328-43-82 06:33:0026[facility]annCHE[facility] CNGZI3612-78-89 06:33:008[facility]annCHE[facility] LDNTX9069-55-50 06:33:003.6[facility]annCHEM MFRCB1744-84-61 06:33:008.9[facility]annCHEM NLQAE4427-91-69 06:33:006.6 [facility]annCHE[facility] UPXTX7879-41-75 06:33:17301Scdntkcc HermannCHEM PANEL 2015-03-28 06:33:0028[facility]annCHEM OSEZH7257-62-26 06:33:000.88[facility]annCHEM ZETZG5229-67-92 06:33:40010Eytyrpbc [facility]annCHEM MURBR4770-50-46 06:33:003.8[facility]annCHEM URJSY8702-57-69 06:33:0012[facility]annCHEM VUHWB7502-67-36 06:33:83260Exykuowq NhsuuivQDQCTJTYEN5805-97-29 06:33:0050.4 [facility] GwmusewAVRVCLZQUJ7000-18-12 06:33:007.0[facility]annHEMATOLOGY 2015-03-28 06:33:003.9[facility] ZmxpbgqYMGMJQCKZX9890-15-97 06:33:007.9[facility] WdgmvguWZEYCZJDBP2657-97-27 06:33:0033.8[facility] CxkexctUJVZKWIOJC6244-06-29 06:33:000.9[facility] ZvsxllmRDCCWQGDGB3761-35-70 06:33:000.5[facility] Jah MMJVGRQZFJ0861-66-56 06:33:000.6[facility] LvenzjbVBDXOCCEFL2747-41-15 06:33:000.1 [facility] SguemmkGAMQKIYISV6772-60-97 06:33:002.6[facility]annHEMATOLOGY 2015-03-28 06:33:0013.3[facility] BonuphcAZKDRDPUYT2982-53-53 06:33:004.70[facility] PukbbhwVRQSXRUTJZ9624-21-47 06:33:007.7[facility] EacebbzYHKCMXCFWE7755-04-74 06:33:0013.0[facility] MnsxkenIKVZRAZXQK0555-85-79 06:33:0032.5[facility] REIYBVIETE2382-86-65 06:33:0040.9[facility] VxrktzdBYFAFIDBSG6615-11-50 06:33:00 Test Item Value Reference Range Interpretation Comments MCH (test code = MCH) 28.3 pg 27.0-31.0 [facility] FguznoeBSWLLGASGP9707-39-87 06:33:0087.0[facility]annHEMATOLOGY 2015-03-28 06:33:008.2[facility] UdkdkapFTTMUFYYGX4870-97-50 06:33:30987Qrewqrjr Jah
[2021-08-02] MEDS ORDERED: TETRACAINE HCL 0.5% 4ML OPTH ONE (08:55)
[2021-08-02] MEDS ORDERED: NA CHLORIDE 0.9% 1,000 ML ONE (08:55)
[2021-08-02 09:13] LABS: Absolute Lymphocytes (CBC) 1.3 K/uL (0.7-4.9); Hematocrit 38.6 % (36.0-45.0); Lymphocytes % 17.8 % (15.3-44.8); MPV 6.9 fL (7.6-11.3); RBC Red Blood Cell Count 4.62 M/uL (3.86-4.86)
[2021-08-02 09:25] LABS: Potassium 3.8 mmol/L (3.5-5.1)
[2021-08-02 09:28] LABS: Urine Blood Negative (Negative); Urine Glucose Negative (Negative); Urine Protein 1+ (Negative); Urine Specific Gravity >=1.030 (1.005-1.030)
--- NOTE | 2021-08-02 10:06 | RAD REPORT ---
EXAM DESCRIPTION: CT - Head Brain Wo Cont - 08/02/2021 9:54 am CLINICAL HISTORY: HEADACHE, dizziness COMPARISON: Head angio dated 08/02/2021; Brain W/Wo Cont dated 02/15/2021 TECHNIQUE: Axial 5 mm thick images of the head were obtained without IV contrast. All CT scans are performed using dose optimization technique as appropriate and may include automated exposure control or mA/KV adjustment according to patient size. FINDINGS: No intracranial hemorrhage, mass, edema or shift of mid-line structures. No acute infarcti on changes seen. No cortical edema or sulcal effacement. Ventricles are normal. Intracranial findings are not clearly different from the January 2021 brain MRI. Mastoid air cells and visualized portions of the paranasal sinuses are clear. No acute bony findings. IMPRESSION: No acute intracranial finding identifiable. No significant change from January 2021 MRI study.
--- NOTE | 2021-08-02 10:09 | RAD REPORT ---
EXAM DESCRIPTION: CT - Head angio - 08/02/2021 9:54 am CLINICAL HISTORY: Headache;Dizziness TECHNIQUE: During dynamic enhancement using nonionic IV contrast, axial 1 millimeter thick images of the head were obtained. Sagittal and axial reconstruction images were generated using MIP technique and reviewed. All CT scans are performed using dose optimization technique as appropriate and may include automated exposure control or mA/KV adjustment according to patient size. COMPARISON: CT head same date FINDINGS: No aneurysm or vascular malformation identified. Major venous sinuses are patent. No named branch occlusion, vasculitis or significant diffuse vascular finding. No significant vertebr obasilar finding. There is minimal tortuosity. The cavernous portion of each internal carotid artery shows calcified and noncalcified atherosclerotic changes. This does not appear to cause significant d egree of luminal narrowing. The anterior and middle cerebral artery distribution show no significant CTA finding. No significant posterior cerebral artery finding noted. IMPRESSION: Atherosclerotic changes in the cavernous portions of each internal carotid artery are p resent but do not appear to cause greater than 50% stenosis. No other significant vascular finding.
--- NOTE | 2021-08-02 10:13 | RAD REPORT ---
EXAM DESCRIPTION: CT - Neck Angio - 08/02/2021 9:54 am CLINICAL HISTORY: HEADACHE, dizziness TECHNIQUE: During dynamic enhancement using nonionic IV contrast, axial 2 mm thick images of the nec k were obtained. Sagittal and axial reconstruction images were generated using MIP technique and revi ewed. All CT scans are performed using dose optimization technique as appropriate and may include automated exposure control or mA/KV adjustment according to patient size. COMPARISON: CT head same date, CT angio head same date FINDINGS: No aneurysm or vascular malformation identified. No carotid or vertebral dissection. No aortic arch or great vessel origin abnormality seen. Vertebral artery origins unremarkable as well . No stenosis, vasculitis or other significant carotid artery finding. No focal abnormality of either vertebral artery. Basilar artery is also without significant finding. Imaging incorporated each lung apex. There are numerous pulmonary nodules present that appear to be i ncreased in number since the April CT chest study. This is a limited lung evaluation and further CT chest imaging could be performed as warranted. IMPRESSION: CT angio neck examination shows no acute or suspicious finding. Apparent further worsening of pulmonary metastatic disease since the April 2021 study. Today's exam ination is only a limited evaluation of each apex. Further evaluation of the entire chest could be pe rformed as warranted by patient treatment protocol.
[2021-08-02 10:28] LABS: SARS-COV-2 RT PCR NEGATIVE (NEGATIVE)
--- NOTE | 2021-08-02 11:24 | EDPHYS ---
Physician Documentation [facility] Name: Martha Patel Age: 61 yrs Sex: Female : 1960 Arrival Date: 08/02/2021 Time: 08:03 Bed 17 Private MD: ED Physician Brett Nettles HPI: 08/02 08:43 This 61 yrs old Black Female presents to ER via Ambulatory with complaints of Headache, rn dizzy, off balance. 08:43 The patient complains of pain to the top of head, right side of the back of head, right rn occipital area and right base of the skull. The patient describes the headache as aching. Onset: The symptoms/episode began/occurred 5 day(s) ago. Associated signs and symptoms: Pertinent positives: nausea, Pertinent negatives: altered mental status, fever, rash, vision loss, weakness. Severity of symptoms: At its worst the pain was moderate, in the emergency department the pain is unchanged. Headache History: Denies prior headaches. The symptoms are alleviated by nothing. the symptoms are aggravated by nothing. The patient has not experienced similar symptoms in the past. The patient has not recently seen a physician. Pt reports headache, right sided, radiates into right neck and shoulder, present for 5 days, no trauma, no fever. Reports dizziness that worsens when standing, and intermittent blurred vision. Also reports feels off balance when walking. Denies focal weakness/numbness/speech changes. . Historical: - Allergies: 08:11 No Known Allergies; jd3 - Home Meds: 08:11 bp medication [Active]; cholesterol medication [Active]; gabapentin Oral [Active]; jd3 Metformin Oral [Active]; Aspirin Oral [Active]; [place]-3 Oral [Active]; - PMHx: 08:11 Cancer, Breast; Diabetes - NIDDM; Hypertension; jd3 - Immunization history:: Adult Immunizations up to date, Client reports having NOT received the Covid vaccine. Flu vaccine is not up to date. - Social history:: Smoking status: Patient reports the use of cigarette tobacco products, denies chronic smoking, but will smoke occasionally. - Family history:: not pertinent. - Hospitalizations: : No recent hospitalization is reported. ROS: 08:43 Constitutional: Negative for fever, chills, and weight loss, Eyes: Negative for injury, rn pain, redness, and discharge, ENT: + sinus pressure Neck: Negative for injury, pain, and swelling, Cardiovascular: Negative for chest pain, palpitations, and edema, Respiratory: Negative for shortness of breath, cough, wheezing, and pleuritic chest pain, Abdomen/GI: Negative for abdominal pain, diarrhea, and constipation, Back: Negative for injury and pain, MS/Extremity: Negative for injury and deformity, Skin: Negative for injury, rash, and discoloration, Neuro: Negative for weakness, numbness, tingling, and seizure. Exam: 08:47 Constitutional: This is a well developed, well nourished patient who is awake, alert, rn and in no acute distress. Head/Face: Normocephalic, atraumatic. Eyes: + chronic haziness of left pupil with upwards deviation of eye, right pupil 4mm, reactive. Conjunctiva and sclera are non-icteric and not injected. Cornea within normal limits. Periorbital areas with no swelling, redness, or edema. ENT: Mucous membranes moist. Neck: Trachea midline, no masses palpated, and no cervical lymphadenopathy. Supple, full range of motion without nuchal rigidity, or vertebral point tenderness. No Meningismus. Cardiovascular: Regular rate and rhythm. No pulse deficits. Respiratory: No increased work of breathing, no retractions or nasal flaring. Abdomen/GI: Soft, non-tender Skin: Warm, dry with normal turgor. Normal color with no rashes, no lesions, and no evidence of cellulitis. MS/ Extremity: Pulses equal, no cyanosis. Neurovascular intact. Full, normal range of motion. Equal circumference. Neuro: Awake and alert, GCS 15, oriented to person, place, time, and situation. Cranial nerves II-XII grossly intact. Motor strength 5/5 in all extremities. Sensory grossly intact. + unsteady gait, but able to ambulate without falling or assistance. 10:52 Eyes: Intraocular pressure: is normal, used tonopen after tetracaine. rn Vital Signs: 08:13 BP 148 / 88; Pulse 100; Resp 18 S; Temp 97.6(TE); Pulse Ox 100% on R/A; Weight 97.52 kg jd3 (R); Height 5 ft. 5 in. (165.10 cm) (R); Pain 8/10; 09:37 BP 128 / 74; Pulse 95; ap3 10:50 BP 145 / 71; Pulse 98; ap3 08:13 Body Mass Index 35.78 (97.52 kg, 165.10 cm) jd3 [place] Coma Score: 11:21 Eye Response: spontaneous(4). Verbal Response: oriented(5). Motor Response: obeys rn commands(6). Total: 15. MDM: 08:20 Patient medically screened. rn 11:21 Differential diagnosis: cluster headache, intracerebral hemorrhage, migraine, neoplasm, rn sinusitis, subarachnoid bleed, tension headache, vasomotor headache. Data reviewed: vital signs, nurses notes, lab test result(s), EKG, radiologic studies, CT scan, and as a result, I will discharge patient. Counseling: I had a detailed discussion with the patient and/or guardian regarding: the historical points, exam findings, and any diagnostic results supporting the discharge/admit diagnosis, lab results, radiology results, the need for outpatient follow up, to return to the emergency department if symptoms worsen or persist or if there are any questions or concerns that arise at home. Response to treatment: the patient's symptoms have mildly improved after treatment, and as a result, I will discharge patient. Special discussion: I discussed with the patient/guardian in detail that at this point there is no indication for admission to the hospital. It is understood, however, that if the symptoms persist or worsen the patient needs to return immediately for re-evaluation. Based on the history and exam findings, there is no indication for further emergent testing or inpatient evaluation. I discussed with the patient/guardian the need to see the neurologist for further evaluation of the symptoms. ED course: CT head and CTA head and neck without acute findings. Patient ambulatory to bathroom without assistance, states feels like walking better. Now reports fullness sensation to both ears and head. Will dc home with abx to cover sinus infection, also recommend allergy medication as states has been burning things lately. . 08/02 08:32 Order name: COVID-19/FLU A+B (Document "Date of Onset" if Symptomatic); Complete Time: rn 10:42 08/02 08:32 Order name: CBC with Diff; Complete Time: 10:42 rn 08/02 08:30 Order name: CT Head Brain wo Cont; Complete Time: 10:42 rn 08/02 08:30 Order name: Head Angio CT; Complete Time: 10:42 rn 08/02 08:32 Order name: Basic Metabolic Panel; Complete Time: 10:42 rn 08/02 09:28 Order name: Urine Dipstick-Ancillary; Complete Time: 10:42 EDMS 08/02 08:30 Order name: Neck Angio CT; Complete Time: 10:42 rn 08/02 08:32 Order name: IV Start; Complete Time: 09:05 rn 08/02 08:32 Order name: Urine Dipstick-Ancillary (obtain specimen); Complete Time: 09:29 rn 08/02 08:33 Order name: Cardiac monitoring; Complete Time: 09:17 rn 08/02 08:33 Order name: EKG; Complete Time: 08:33 rn 08/02 08:33 Order name: EKG - Nurse/Tech; Complete Time: 09:12 rn 08/02 08:47 Order name: Eye Tray; Complete Time: 08:54 rn Administered Medications: 09:12 Drug: NS 0.9% 500 ml Route: IV; Rate: bolus; Site: right antecubital; ap3 10:55 Drug: Tetracaine Drops 0.5 % 1 drops {Note: by Dr. Nettles.} Route: Ophthalmic; Site: ap3 left eye; Disposition Summary: 08/02/21 11:23 Discharge Ordered Location: Home rn Problem: new rn Symptoms: have improved rn Condition: Stable rn Diagnosis - Headache rn Followup: rn - With: Private Physician - When: As needed - Reason: Recheck today's complaints, Re-evaluation by your physician Discharge Instructions: - Discharge Summary Sheet rn - General Headache Without Cause rn - Hypertension, Adult rn Forms: - Medication Reconciliation Form rn - Thank You Letter rn - Antibiotic procurement internship - Prescription Opioid Use rn Prescriptions: - Zithromax Z-Eder 250 mg Oral Tablet - take 1 tablet by ORAL route as directed for 5 days Day 1 - take two (2) tablets rn one time. Day 2, 3, 4 , 5 take one (1) tablet once daily.; 6 tablet; Refills: 0, Product Selection Permitted Signatures: Dispatcher [employer] EDBrett Perez MD MD rn Davies, Jonathon RN RN Claudia Wlaker RN RN ap3
--- NOTE | 2021-08-02 11:24 | ER ---
Nurse's Notes [facility] Name: Martha Patel Age: 61 yrs Sex: Female : 1960 Arrival Date: 08/02/2021 Time: 08:03 Bed 17 Private MD: Diagnosis: Headache Presentation: 08/02 08:09 Chief complaint: Chief complaint: Patient states: "I have been having this pain in my jd3 head and in my sinus and in my ears and from my shoulders into my head. I have been taking Tylenol # 3 and then regular Tylenol. I have been having these symptoms for about 5 days now.". Coronavirus screen: At this time, the client does not indicate any symptoms associated with coronavirus-19. Ebola Screen: No symptoms or risks identified at this time. Initial Sepsis Screen: Does the patient meet any 2 criteria? No. Patient's initial sepsis screen is negative. Does the patient have a suspected source of infection? No. Patient's initial sepsis screen is negative. Risk Assessment: Do you want to hurt yourself or someone else? Patient reports no desire to harm self or others. Onset of symptoms was July 28, 2021. 08:09 Acuity: LISANDRO 3 jd3 08:09 Method Of Arrival: Ambulatory jd3 08:12 Note pt reports home COVID test was negative. jd3 Triage Assessment: 09:13 Headache History: The patient has had previous headaches and this one is similar to ap3 previous episodes. General: Appears uncomfortable, Behavior is calm, cooperative, appropriate for age. Pain: Also complains of. Pain: Complains of pain in right base of the skull and right occipital area and right side of the back of head and top of head Pain currently is 5 out of 10 on a pain scale. EENT: Reports blurred vision. Neuro: Level of Consciousness is awake, alert, obeys commands, Oriented to person, place, time, situation, Speech is normal. Cardiovascular: Patient's skin is warm and dry. Respiratory: Airway is patent Respiratory effort is even, unlabored, Respiratory pattern is regular, symmetrical. Historical: - Allergies: 08:11 No Known Allergies; jd3 - Home Meds: 08:11 bp medication [Active]; cholesterol medication [Active]; gabapentin Oral [Active]; jd3 Metformin Oral [Active]; Aspirin Oral [Active]; [place]-3 Oral [Active]; - PMHx: 08:11 Cancer, Breast; Diabetes - NIDDM; Hypertension; jd3 - Immunization history:: Adult Immunizations up to date, Client reports having NOT received the Covid vaccine. Flu vaccine is not up to date. - Social history:: Smoking status: Patient reports the use of cigarette tobacco products, denies chronic smoking, but will smoke occasionally. - Family history:: not pertinent. - Hospitalizations: : No recent hospitalization is reported. Screenin:12 Abuse screen: Denies threats or abuse. Nutritional screening: No deficits noted. ap3 Tuberculosis screening: No symptoms or risk factors identified. Fall Risk No fall in past 12 months (0 pts). Secondary diagnosis (15 points) headache, blurred vision. IV access (20 points). Ambulatory Aid- None/Bed Rest/Nurse Assist (0 pts). Gait- Impaired (20 pts.). Mental Status- Oriented to own ability (0 pts). Total Mckenzie Fall Scale indicates High Risk Score (45 or more points). Fall prevention measures have been instituted. Side Rails Up X 2 Placed Close to Nursing Station Frequent Obs/Assessments Occuring Family Present and informed to notify staff if the need to leave the bedside As available patient and family educated on Fall Prevention Program and Strategies. Assessment: 09:13 General: Appears uncomfortable, Behavior is calm, cooperative, appropriate for age. ap3 Pain: Complains of pain in right base of the skull and right occipital area and right side of the back of head and top of head Pain began gradually, approx 5 days ago. 09:14 General: patient assisted to the restroom with drawer in stitch bonding machine. Patient given urine specimen ap3 cup, and education on proper urine collection. Patient verbalized understanding of education. Neuro: No deficits noted. Level of Consciousness is awake, alert, obeys commands, Oriented to person, place, time, situation. 09:59 Reassessment: Patient and/or family updated on plan of care and expected duration. Pain ap3 level reassessed. Patient is alert, oriented x 3, equal unlabored respirations, skin warm/dry/pink. Pain: Complains of pain in right base of the skull and right occipital area and right side of the back of head and top of head. 10:56 Reassessment: patient assisted to restroom with drawer in stitch bonding machine without incident. Patient ap3 placed back into bed, bed locked in lowest position, side rails up X's 2 with call light within reach. 11:22 Reassessment: Patient and/or family updated on plan of care and expected duration. Pain ap3 level reassessed. Patient is alert, oriented x 3, equal unlabored respirations, skin warm/dry/pink. Patient states feeling better. Patient states symptoms have improved. Vital Signs: 08:13 BP 148 / 88; Pulse 100; Resp 18 S; Temp 97.6(TE); Pulse Ox 100% on R/A; Weight 97.52 kg jd3 (R); Height 5 ft. 5 in. (165.10 cm) (R); Pain 8/10; 09:37 BP 128 / 74; Pulse 95; ap3 10:50 BP 145 / 71; Pulse 98; ap3 08:13 Body Mass Index 35.78 (97.52 kg, 165.10 cm) jd3 [place] Coma Score: 11:21 Eye Response: spontaneous(4). Verbal Response: oriented(5). Motor Response: obeys rn commands(6). Total: 15. ED Course: 08:03 Patient arrived in ED. ja2 08:11 Triage completed. jd3 08:14 Arm band placed on. jd3 08:20 Brett Nettles MD is Attending Physician. rn 08:41 Claudia Watt, SUE is Primary Nurse. ap3 09:03 Inserted saline lock: 20 gauge in right antecubital area, using aseptic technique. mb7 09:04 Bed in low position. Call light in reach. Side rails up X 1. Door closed. Noise mb7 minimized. Warm blanket given. Pillow given. 09:04 COVID swab sent to lab. Inserted saline lock: 20 gauge in right antecubital area, using mb7 aseptic technique. Blood collected. 09:05 Basic Metabolic Panel Sent. mb7 09:05 CBC with Diff Sent. mb7 09:20 EKG done, by ED staff, reviewed by Brett Nettles MD. mb7 09:56 CT Head Brain wo Cont In Process Unspecified. EDMS 09:[address] In Process Unspecified. EDMS 09:[address] In Process Unspecified. EDMS 10:50 ED physician to see patient. ap3 11:22 ED physician to see patient. ap3 12:15 No provider procedures requiring assistance completed. IV discontinued, intact, ap3 bleeding controlled, No redness/swelling at site. Pressure dressing applied. Administered Medications: 09:12 Drug: NS 0.9% 500 ml Route: IV; Rate: bolus; Site: right antecubital; ap3 10:55 Drug: Tetracaine Drops 0.5 % 1 drops {Note: by Dr. Nettles.} Route: Ophthalmic; Site: ap3 left eye; Outcome: 11:23 Discharge ordered by . rn 12:15 Discharged to home ambulatory, with family. ap3 12:15 Condition: good 12:15 Discharge instructions given to patient, Instructed on discharge instructions, follow up and referral plans. medication usage, Demonstrated understanding of instructions, follow-up care, medications, Prescriptions given X 1. 12:16 Patient left the ED. ap3 Signatures: Dispatcher [employer] EDMS Brett Nettles MD MD rn Davies, Jonathon, RN RN jd3 Prokisch, Amanda, RN RN ap3 Chey Gudino Mary 7
[2021-08-02 13:16] VITALS: TEMP 97.6; O2SAT 100
[2021-08-02 13:19] VITALS: BP 145/71
--- NOTE | 2021-08-04 11:06 | EKG ---
Test Date: 2021-08-02 Test Time: 09:13:30 Health Communications Specialist: MB MEASUREMENT RESULTS: Intervals: Rate: 94 MA: 140 QRSD: 90 QT: 386 QTc: 482 [place]: P: 82 MA: 140 QRS: 60 T: 16 INTERPRETIVE STATEMENTS: Normal sinus rhythm Prolonged QT Abnormal ECG Compared to ECG 07/29/2019 09:33:13 Prolonged QT interval now present T-wave abnormality no longer present Possible ischemia no longer present Electronically Signed On 08-04-21 10:58:21 CDT by Genaro Jewell
== END 2021-08-02 12:16 | disposition home or self-care (01) ==
LOC: ER 07:59
DX: R51.9 Headache, unspecified (principal); E11.9 Type 2 diabetes mellitus without complications; I10 Essential (primary) hypertension; F17.210 Nicotine dependence, cigarettes, uncomplicated; Z20.822 Contact with and (suspected) exposure to COVID-19; Z79.82 Long term (current) use of aspirin; Z85.3 Personal history of malignant neoplasm of breast
CPT/HCPCS: 93005; 85025; 80048; 36415; 81003; 0240U; 70450; 70496; 70498; Q9967; J7030; 99284

== ENCOUNTER 2021-08-06 02:08 | Emergency (ER) | payer OTHER ==
--- OUTSIDE RECORDS SUMMARY | 2021-08-06 02:17 | XMS REPORT | Continuity of Care Document ---
:1960 Author Organization [facility] t Address [address] [place] [address] Care Team Providers Name Role Phone TANYA [...] Date Expiration Date S nilda BOTELLO DUAL [id number] COMPLETE SNP [facility] MEDICARE PART A [id number] \\T\\ B - MEDICARE AMBETTER - [id number] [facility]/MEDICARE [id number] 2020 COMPLETE 00:00:00 MEDICARE A B [id number] 2020 00:00:00 Problems Condition Condition Condition Status Onset Resolution Last Treating Co mments Source Name Details Category Date Date Treatment Clinician Date High risk High risk Disease Active [place] [facility] medication medication 11-26 Co llege use use 00:00: of 00 Medicin e Chemothera Chemothera Disease Active B aytimmy py py 11-26 [place] follow-up follow-up 00:00: of examinatio examinatio 00 Me dicin n n e Pre-operat Pre-operat Disease Active B purnima chris chris 11-26 [place] cardiovasc cardiovasc 00:00: of ular ular 00 Medicin examinatio examinatio e n n History of History of Disease Active B purnima CVA CVA 11-26 [place] (cerebrova (cerebrova 00:00: of scular scular 00 Medicin accident) accident) e Anxiety Anxiety Disease Active [facility] 09-25 [place] 00:00: of 00 Medicin e Abnormal Abnormal Disease Active [facility] mammogram mammogram 09-25 [facility] ege 00:00: of 00 Medicin e Breast Breast Disease Active [facility] pain, left pain, left 6-04 Co llege 00:00: of 00 Medicin e Hyperglyce Hyperglyce Disease Active B purnima ivette ivette 09-25 [place] 00:00: of 00 Medicin e Stroke, Stroke, Disease Active [facility] acute, acute, 09-25 [place] thrombotic thrombotic 00:00: of (HCCode) (HCCode) 00 Medici n e Uncontroll Uncontroll Disease Active B 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 09-25 [facility] diabetes diabetes 00:00: of mellitus mellitus 00 Medici n with with e hyperglyce hyperglyce ivette ivette (HCCode) (HCCode) Breast Breast Disease Active [facility] pain, left pain, left 6-04 Co llege 00:00: of 00 Medicin e Glaucoma Glaucoma Disease Active [place] [facility] 09-25 [place] 00:00: of 00 Medicin e History of History of Disease Active B a[facility]immy malignant malignant 09-25 [facility] e[facility] neoplasm neoplasm 00:00: of of breast of breast 00 Medi abraham e Hypertensi Hypertensi Disease Active [facility] on on 09-25 College 00:00: of 00 Medicin e Obesity Obesity Disease Active [facility] (BMI (BMI 09-25 College 30-39.9) 30-39.9) 00:00: of 00 Medicin e Nodule of Nodule of Disease Active [facility] finger of finger of 09-25 [facility] ege both hands both hands 00:00: of 00 Medicin e CHEMOTHERA Diagnosis Active 2020-01-20 [facility]oria PY 9- 12:08:00 l COMPLETED 00:00: [place] CHEMOTHERA 00 PY COMPLETED Active 01/10/2020 [facility] Breast Breast Disease Active [facility] cancer cancer 06-30 [place] (HCCode) (HCCode) 00:00: of 00 Medicin e BREAST Diagnosis Active 2019-07-09 Mem oria CANCER 06-30 14:53:00 l BREAST 00:00: [place] CANCER 00 Active 07/01/2019 [facility] [place] SCIATICA Diagnosis Active 2016-042017-02-14 M emoria TYPE PAIN 0-24 14:00:00 l SCIATICA 00:00: John n TYPE PAIN 00 Active 02/14/2017 [facility] BOILS Diagnosis Active 2016-09-07 Mem oria 5-16 00:23:00 l BOILS 00:00: [place] 00 Active 09/06/2016 [facility] [place] ABDOMINAL Diagnosis Active 2014-042015-05-05 Memoria PAIN 2-04 10:43:00 l 00:00: [place] ABDOMINAL 00 PAIN Active 03/27/2015 [facility] COPD COPD Disease Active 2012-04 [facility] (chronic (chronic 05-12 Colleg e obstructiv obstructiv 00:00: of e e 00 Medicin pulmonary pulmonary e disease) disease) (HCCode) (HCCode) COPD Diagnosis Active 2012-042013-03-15 Mem oria 1-19 08:29:00 l COPD 00:00: [place] 00 Active 03/12/2013 [facility] Cyst of Problem Resolve 2017-02-17 Mem oria ovary d 03:03:15 l (disorder) Cyst of Her nix ovary (disorder) Resolved Problem 02/17/2017 [facility], [facility] History of Past Illness Condition Condition Condition [...] 0-24 03:03:15 03:03:15 l d side 05:00: [place] Sciatica, 00 unspecifie d side 02/14/2017 02/17/2017 [facility] Cutaneous Problem 2016-09-10 2016-09-10 Memoria abscess, 09-07 03:38:26 03:38:26 l unspecifie 05:00: John n d Cutaneous 00 abscess, unspecifie d 09/07/2016 09/10/2016 [place] Discharge Problem 2014-042015-03-31 2015-03-31 Memoria Diagnosis: 2-05 02:33:03 02:33:03 l Morbid 06:00: Jah obesity Discharge 00 Diagnosis: Morbid obesity 03/28/2015 03/31/2015 [place] Discharge Problem 2014-042015-03-31 2015-03-31 Memoria Diagnosis: 2-05 02:33:03 02:33:03 l Pain, 06:00: Jah abdominal, Discharge 00 nonspecifi Diagnosis: c Pain, abdominal, nonspecifi c 03/28/2015 03/31/2015 [facility] Allergies, Adverse Reactions, Alerts Allergy Allergy Status Severity Reaction(s) Onset Inactive Treating Comm ents Source Name Type Date Date Clinician NO KNOWN Allergy Active [facility] Social History Social Habit Start Date Stop Date Quantity Comments Source History of Cigarette Smoker [facility] Rene luo tobacco use of Medicine Exposure to Not sure [place] mera SARS-CoV-2 of Medicine (event) Alcohol intake 2021-07-02 2021-07-02 Ex-drinker [facility] legede 00:00:00 00:00:00 (finding) of Medicine Tobacco use and 2020-09-25 2020-09-25 Smokeless tobacco Ba [facility] exposure 00:00:00 00:00:00 non-user of Medicine Social History 2015-03-28 2015-03-28 Zeferino blount 06:13:28 06:13:28 Sex Ass[birth year] At [birth year] [facility] Deandre greer 00:00:00 00:00:00 of Medicine Smoking Status Start Date Stop Date Source Smokes tobacco daily 2020-09-25 00:00:00 [facility] Medications Ordered Filled Start Stop Current Ordering Indication Dosage Frequency Signature Comments Components Source Medication Medication Date Date Medication? Clinician (SIG) Name Name Lancets Yes [facility]sc. 3[facility] 13:03: Lancet of FASTCLIX 17 Drum Medicin LANCET) KIT e gabapentin Yes gabapentin [facility] (NEURONTIN) 11 600 mg Colleg e 600 MG 13:03: tablet of tablet 17 Medicin e hydrocodone Yes hydrocodon [facility] -acetaminop 07-02 e 10 College hen (NORCO) 13:03: mg-acetami of 10-325 MG 17 nophen 325 Medi abraham per tablet mg tablet e Budesonide- Yes 1 puffs [place] [facility] Formoterol 07-02 College Fumarate 13:03: of 160-4.5 17 Medicin MCG/ACT e AERO enalapril Yes enalapril [place] [facility] (VASOTEC) 07-02 maleate 10 [facility] ege [...] e Lancets Yes Maricel hall Misc. 9-03 [facility] (ACCU-CHEK 11:56: Lancet of FASTCLIX 36 Drum Medicin LANCET) KIT e gabapentin Yes gabapentin [facility] (NEURONTIN) 12-25 600 mg Colleg e 600 MG 11:56: tablet of tablet 36 Medicin e hydrocodone Yes hydrocodon [facility] -acetaminop 12-25 e 10 [facility]) 11:56: mg-acetami of 10-325 MG 36 nophen 325 Medi abraham per tablet mg tablet e Budesonide- Yes 1 puffs [place] Formoterol 12-25 [place] Fumarate 11:56: of (SYMBICORT) 36 Medicin 160-4.5 e MCG/ACT AERO enalapril Yes enalapril [place] (VASOTEC) 12-25 maleate 10 [place] ege 10 MG 11:56: mg tablet of tablet 36 Medicin e metoprolol Yes metoprolol [facility] (LOPRESSOR) 12-25 tartrate [facility] [facility] 25 MG 11:56: 25 mg of tablet 36 tablet Medicin e ondansetron Yes ondansetro [facility] (ZOFRAN) 4 12-25 n HCl 4 mg Col lege MG tablet 11:56: tablet of 36 Medicin e Lancets Yes Accu-Chek [facility] r Misc. 12-25 Fastclix [place] (ACCU-CHEK 11:56: Lancet of FASTCLIX 36 Drum Medicin LANCET) KIT e gabapentin Yes gabapentin [facility] (NEURONTIN) 12-25 600 mg Colleg e 600 MG 11:56: tablet of tablet 36 Medicin e hydrocodone Yes hydrocodon [place] -acetaminop 12-25 e 10 [facility]) 11:56: mg-acetami of 10-325 MG 36 nophen 325 Medi abraham per tablet mg tablet e Budesonide- Yes 1 puffs [place] Formoterol 12-25 [place] Fumarate 11:56: of (SYMBICORT) 36 Medicin 160-4.5 e MCG/ACT AERO enalapril Yes enalapril [place] (VASOTEC) 12-25 maleate 10 [facility] ege 10 MG 11:56: mg tablet of tablet 36 Medicin e metoprolol Yes metoprolol [facility] (LOPRESSOR) 12-25 tartrate [facility] e[facility] 25 MG 11:56: 25 mg of tablet 36 tablet Medicin e ondansetron Yes ondansetro [facility] (ZOFRAN) 4 9-03 n HCl 4 mg Col lege MG tablet 11:56: tablet of 36 Medicin e Lancets Yes Accu-Chek [facility]. 12-25 [facility] (ACCU-CHEK 11:56: Lancet of FASTCLIX 36 Drum Medicin LANCET) KIT e gabapentin Yes gabapentin [place] (NEURONTIN) 12-25 600 mg Colleg e 600 MG 11:56: tablet of tablet 36 Medicin e hydrocodone Yes hydrocodon [facility] -acetaminop 12-25 e 10 [place] hen (HURDLAND) 11:56: mg-acetami of 10-325 MG 36 nophen 325 Medi abraham per tablet mg tablet e Budesonide- Yes 1 puffs [place] Formoterol 12-25 College Fumarate 11:56: of (SYMBICORT) 36 Medicin 160-4.5 e MCG/ACT AERO enalapril Yes enalapril [place] (VASOTEC) 12-25 maleate 10 [facility] ege 10 MG 11:56: mg tablet of tablet 36 Medicin e metoprolol Yes metoprolol [facility] (LOPRESSOR) 12-25 tartrate [facility] e[facility] 25 MG 11:56: 25 mg of tablet 36 tablet Medicin e ondansetron Yes ondansetro [place] (ZOFRAN) 4 9- n HCl 4 mg Col lege MG tablet 11:56: tablet of 36 Medicin e Lancets Yes [facility] 12-25 Fastix [place] (ACCU-CHEK 11:56: Lancet of FASTCLIX 36 Drum Medicin LANCET) KIT e gabapentin Yes gabapentin [place] (NEURONTIN) 12-25 600 mg Colleg e 600 MG 11:56: tablet of tablet 36 Medicin e hydrocodone Yes hydrocodon [facility] -acetaminop 12-25 e 10 [place] hen (AlianzaMD) 11:56: mg-acetami of 10-325 MG 36 nophen 325 Medi abraham per tablet mg tablet e Budesonide- Yes 1 puffs [place] Formoterol 12-25 [place] Fumarate 11:56: of (SYMBICORT) 36 Medicin 160-4.5 e MCG/ACT AERO enalapril Yes enalapril [place] (VASOTEC) 12-25 maleate 10 [place] e[facility] 10 MG 11:56: mg tablet of tablet 36 Medicin e metoprolol Yes metoprolol [facility] (LOPRESSOR) 12-25 tartrate [facility] e[facility] 25 MG 11:56: 25 mg of tablet 36 tablet Medicin e ondansetron Yes ondansetro [facility] (ZOFRAN) 4 12-25 n HCl 4 mg Col lege MG tablet 11:56: tablet of 36 Medicin e Lancets Yes Accu-Chek [facility]. 12-18 [facility] (ACCU-CHEK 13:19: Lancet of FASTCLIX 20 Drum Medicin LANCET) KIT e gabapentin Yes gabapentin [facility] (NEURONTIN) 12-18 600 mg Colleg e 600 MG 13:19: tablet of tablet 20 Medicin e hydrocodone Yes hydrocodon [facility] -acetaminop 12-18 e 10 College hen (NORCO) 13:19: mg-acetami of 10-325 MG 20 nophen 325 Medi abraham per tablet mg tablet e Budesonide- Yes 1 puffs [place] Formoterol 12-18 [place] Fumarate 13:19: of (SYMBICORT) 20 Medicin 160-4.5 e MCG/ACT AERO enalapril Yes enalapril [place] (VASOTEC) 12-18 maleate 10 [facility] e[facility] 10 MG 13:19: mg tablet of tablet 20 Medicin e metoprolol Yes metoprolol [facility] (LOPRESSOR) 12-18 tartrate [place] e[facility] 25 MG 13:19: 25 mg of tablet 20 tablet Medicin e ondansetron Yes ondansetro [facility] (ZOFRAN) 4 12-18 n HCl 4 mg [...] Medicin hours as e needed. amlodipine Yes [facility] (NORVASC) 7-22 College 10 MG 00:00: of tablet 00 Medicin e losartan 2020-0 Yes [facility] (COZAAR) 50 7-22 College MG tablet 00:00: of 00 Medicin e metformin 2020-0 Yes [facility] (GLUCOPHAGE 722 [place] ) 1000 MG 00:00: of tablet 00 Medicin e amlodipine 2020-0 Yes [facility] (NORVASC) 7-22 College 10 MG 00:00: of tablet 00 Medicin e losartan 2020-0 Yes [facility] (COZAAR) 50 7-22 College MG tablet 00:00: of 00 Medicin e metformin 2020-0 Yes [facility] (GLUCOPHAGE 722 College ) 1000 MG 00:00: of tablet 00 Medicin e amlodipine 2020-0 Yes [facility] (NORVASC) 7-22 College 10 MG 00:00: of tablet 00 Medicin e losartan 2020-0 Yes [facility] (COZAAR) 50 7-22 College MG tablet 00:00: of 00 Medicin e metformin 2020-0 Yes [facility] (GLUCOPHAGE 22 College ) 1000 MG 00:00: of tablet 00 Medicin e amlodipine 2020-0 Yes [facility] (NORVASC) 7-22 College 10 MG 00:00: of tablet 00 Medicin e losartan 2020-0 Yes [facility] (COZAAR) 50 7-22 College MG tablet 00:00: of 00 Medicin e metformin 2020-0 Yes [facility] (GLUCOPHAGE 22 [place] ) 1000 MG 00:00: of tablet 00 Medicin e amlodipine 2020-0 Yes [facility] (NORVASC) 722 College 10 MG 00:00: of tablet 00 Medicin e losartan 2020-0 Yes [facility] (COZAAR) 50 7-22 College MG tablet 00:00: of 00 Medicin e metformin 2020-0 Yes [facility] (GLUCOPHAGE 22 [place] ) 1000 MG 00:00: of tablet 00 Medicin e amlodipine 2020-0 Yes [facility] (NORVAS) 11-12 College 10 MG 00:00: of tablet 00 Medicin e losartan 2020-0 Yes [facility] (COZAAR) 50 7-22 College MG tablet 00:00: of 00 Medicin e metformin 2020-0 Yes [facility] (GLUCOPHAGE 11-12 [place] ) 1000 MG 00:00: of tablet 00 Medicin e Lancets 2020-0 Yes Accu-Chek [facility]onda hall Misc. 11-06 Fastclix [place] (ACCU-CHEK 11:58: Lancet of FASTCLIX 26 Drum Medicin LANCET) KIT e gabapentin 0 Yes gabapentin [facility] (NEURONTIN) 11-06 600 mg Colleg e 600 MG 11:58: tablet of tablet 26 Medicin e hydrocodone 0 Yes hydrocodon [facility] -acetaminop 16 e 10 College hen (NORCO) 11:58: mg-acetami of 10-325 MG 26 nophen 325 Medi abraham per tablet mg tablet e tramadol 0 Yes [place] (ULTRAM) 50 5-25 College MG tablet 00:00: of 00 Medicin e tramadol 0 Yes [place] (ULTRAM) 50 5-25 College MG tablet 00:00: of 00 Medicin e tramadol 0 Yes [facility] (ULTRAM) 50 5-25 College MG tablet 00:00: of 00 Medicin e tramadol 0 Yes [facility] (ULTRAM) 50 5-25 College MG tablet 00:00: of 00 Medicin e tramadol 0 Yes [facility] (ULTRAM) 50 5-25 College MG tablet 00:00: of 00 Medicin e tramadol 0 Yes [facility] (ULTRAM) 50 5-25 College MG tablet 00:00: of 00 Medicin e tramadol 0 Yes [facility] (ULTRAM) 50 5-25 College MG tablet 00:00: of 00 Medicin e amlodipine 0 Yes [facility] ([facility]) 5-08 College 10 MG 00:00: of tablet 00 Medicin e amlodipine 0 Yes [facility] ([facility]) 5-08 College 10 MG 00:00: of tablet 00 Medicin e amlodipine 0 Yes [facility]) 5-08 College 10 MG 00:00: of tablet 00 Medicin e amlodipine 0 Yes [facility] ([facility]) 5-08 College 10 MG 00:00: of tablet 00 Medicin e amlodipine 0 Yes [facility] ([facility]) 5-08 College 10 MG 00:00: of tablet 00 Medicin e amlodipine 0 Yes [facility] ([facility]) 5-08 College 10 MG 00:00: of tablet [...] Outpati ent Clinics metformin 2020-0 Yes metformin [place] [facility] (GLUCOPHAGE 3-18 1,000 mg [facility] e[facility] ) 1000 MG 00:00: tablet of tablet 00 Medicin e metformin 2020-0 Yes metformin [place] [facility] (GLUCOPHAGE 3-18 1,000 mg [facility] ege ) 1000 MG 00:00: tablet of tablet 00 Medicin e Blood 2020-0 Yes as [facility] Glucose 3-18 directed College Monitor 00:00: (DISPENSE of Software 00 BLOOD Medicin ALICIA GLUCOSE e MONITOR FORMULARY TO INSURANCE) metformin 2020-0 Yes metformin [place] (GLUCOPHAGE 3-18 1,000 mg [facility] ege ) 1000 MG 00:00: tablet of tablet 00 Medicin e Blood 2020-0 Yes as [facility] Glucose 3-18 directed College Monitor 00:00: (DISPENSE of Software 00 BLOOD Medicin ALICIA GLUCOSE e MONITOR FORMULARY TO INSURANCE) metformin 2020-0 Yes metformin [place] (GLUCOPHAGE 3-18 1,000 mg [facility]rice ege ) 1000 MG 00:00: tablet of tablet 00 Medicin e Blood 2020-0 Yes as [place] Glucose 3-18 directed College Monitor 00:00: (DISPENSE of Software 00 BLOOD Medicin ALICIA GLUCOSE e MONITOR FORMULARY TO INSURANCE) metformin 2020-0 Yes metformin [place] (GLUCOPHAGE 3-18 1,000 mg Beatrice ege ) 1000 MG 00:00: tablet of tablet 00 Medicin e Blood 2020-0 Yes as [place] Glucose 3-18 directed College Monitor 00:00: (DISPENSE of Software 00 BLOOD Medicin ALICIA GLUCOSE e MONITOR FORMULARY TO INSURANCE) metformin 2020-0 Yes metformin [place] (GLUCOPHAGE 3-18 1,000 mg Beatrice ege ) 1000 MG 00:00: tablet of tablet 00 Medicin e Blood 2020-0 Yes as [facility] Glucose 3-18 directed [facility] Monitor 00:00: (DISPENSE of Software 00 BLOOD Medicin ALICIA GLUCOSE e MONITOR FORMULARY TO INSURANCE) metformin 2020-0 Yes metformin [place] (GLUCOPHAGE 3-18 1,000 mg Beatrice ege ) 1000 MG 00:00: tablet of tablet 00 Medicin e Blood 2020-0 Yes as [place] Glucose 3-18 directed College Monitor 00:00: (DISPENSE of Software 00 BLOOD Medicin ALICIA GLUCOSE e MONITOR FORMULARY TO INSURANCE) losartan 25 2020-0 Yes 25 mg = 1 M emoria mg oral 3-16 tab, PO, l tablet 14:26: Daily, # [place] 00 30 tab, 0 Refill(s) Acetaminoph 2020-0 [...] tab, PO, l tablet 14:26: Daily, # [place] 00 30 tab, 0 Refill(s) Acetaminoph 2020-0 Yes 1 tab, PO, Memoria en 300 MG / 3-16 Q6H, PRN l Codeine 14:26: Pain, # 28 Herm griselda Phosphate 00 tab, 0 30 MG Oral Refill(s) Tablet [Tylenol with Codeine #3] losartan Yes 25 mg = 1 M emoria mg oral 3-16 tab, PO, l tablet 14:26: Daily, # [place] 00 30 tab, 0 Refill(s) Acetaminoph 2020-0 [...] tablet acetaminoph 2020-0 Yes 1 tab, PO, [facility] en-codeine 3-16 Q6H, PRN Colle ge (TYLENOL [...] tablet acetaminoph 2020-0 Yes 1 tab, PO, [facility] en-codeine 3-16 Q6H, PRN Colle ge (TYLENOL 00:00: Pain, # 28 of #3) 300-30 00 tab, 0 Medicin MG per Refill(s) e tablet Losartan Losartan 2019-0 Yes Shelly 1/[address] [facility] Potassium Potassium 1-29 [facility]: [facility] 00 l [facility] Yes 1 tab, PO, Memoria en 300 MG / 0-24 Q6H, PRN l Codeine 18:44: Pain, X 3 Fany nn Phosphate 00 day, # 12 30 MG Oral tab, 0 Tablet Refill(s) [[facility]en[facility] with Codeine #3] [facility] Yes 1 tab, PO, Memoria en 300 MG / 0-24 Q6H, PRN l Codeine 18:44: Pain, X 3 Fany nn Phosphate 00 day, # 12 30 MG Oral tab, 0 Tablet Refill(s) [[facility]ylenol with Codeine #3] [facility] Yes 1 tab, PO, Memoria en 300 MG / 0-24 Q6H, PRN l Codeine 18:44: Pain, X 3 Fany nn Phosphate 00 day, # 12 30 MG Oral tab, 0 Tablet Refill(s) [Tylenol with Codeine #3] [facility] 2016[facility] Yes 1 tab, PO, Memoria en 300 MG / 0-24 Q6H, PRN l Codeine 18:44: Pain, X 3 Fany nn Phosphate 00 day, # 12 30 MG Oral tab, 0 Tablet Refill(s) [Tylenol with Codeine #3] [facility] 2016[facility] Yes 1 tab, PO, Memoria en 300 MG / 0-24 Q6H, PRN l Codeine 18:44: Pain, X 3 Fany nn Phosphate 00 day, # 12 30 MG Oral tab, 0 Tablet Refill(s) [Tylenol with Codeine #3] [facility] 2016[facility] Yes 1 tab, PO, Memoria [...] tab, PO, l tablet 18:43: Q8H, PRN [place] 00 Pain, Take with food, X 5 [...] tab, PO, l tablet 18:43: Q8H, PRN [place] 00 Pain, Take with food, X 5 [...] 0-24 Route: PO, l 17:01: Drug form: [place] 00 TAB, ONCE, Dosing Weight 123.438, kg, Priority: STAT, Start date: 02/14/17 12:01:00 CDT, Stop date: 02/14/17 12:01:00 CDT Motrin 2016-04 No 600 mg, Memoria 0-24 Route: PO, l 17:01: Drug form: [place] 00 TAB, ONCE, Dosing Weight 123.438, kg, [...] Fany nn tablet 00 tab, 0 Refill(s) [facility] Yes 1 tab, PO, Me moria 800 mg-160 5-17 BID, X 10 l mg oral 06:21: day, # 20 Fany nn tablet 00 tab, 0 Refill(s) [facility] Yes 1 tab, PO, Me moria 800 mg-160 5-17 BID, X 10 l mg oral 06:21: day, # 20 Fany nn tablet 00 tab, 0 Refill(s) [facility] Yes 1 tab, PO, Me moria 800 mg-160 5-17 BID, X 10 l mg oral 06:21: day, # 20 Fany nn tablet 00 tab, 0 Refill(s) [facility] Yes 1 tab, PO, Me moria 800 mg-160 5-17 BID, X 10 l mg oral 06:21: day, # 20 Fany nn tablet 00 tab, 0 Refill(s) [facility] Yes 1 tab, PO, Me moria 800 [...] not exceed l Hydrocodone 10:30: 4gm/day of [place] Bitartrate 00 acetaminop 10 MG Oral hen. Tablet (Same as: [[place] 10/325] 325/10) Acetaminoph 2014-04 No Notes: Do M emoria en 325 MG / 2-05 not exceed l Hydrocodone 10:30: 4gm/day of [place] Bitartrate 00 acetaminop 10 MG Oral hen. Tablet (Same as: [[place] 10/325] 325/10) Acetaminoph 2014-04 No Notes: Do M emoria en 325 MG / 2-05 not exceed l Hydrocodone 10:30: 4gm/day of [place] Bitartrate 00 acetaminop 10 MG Oral hen. Tablet (Same as: [[place] 10/325] 325/10) Acetaminoph 2014-04 No Notes: Do M emoria en 325 MG / 2-05 not exceed l Hydrocodone 10:30: 4gm/day of [place] Bitartrate 00 acetaminop 10 MG Oral hen. Tablet (Same as: [[place] [facility] [place] 10/325] 325/10) Acetaminoph 2014-04 No Notes: Do M emoria en 325 MG / 2-05 not exceed l Hydrocodone 10:30: 4gm/day of [place] Bitartrate 00 acetaminop 10 MG Oral hen. Tablet (Same as: [[place] [facility] [place] [facility] 10/325] 325/10) Acetaminoph 2014-04 No Notes: Do M emoria en 325 MG / 2-05 not exceed l Hydrocodone 10:30: 4gm/day of [place] Bitartrate 00 acetaminop 10 MG Oral hen. Tablet (Same as: [[place] [facility] [facility] 10/325] 325/10) 200 ACTUAT 2014-04 Yes 2 [...] INHALATION l 0.09 09:39: , QID, 0 [place] MG/ACTUAT 00 Refill(s) Metered Dose Inhaler 200 ACTUAT 2014-04 Yes 2 puff, Thaddeus mekhi Albuterol 2-05 INHALATION l 0.09 09:39: , QID, 0 [place] MG/ACTUAT 00 Refill(s) Metered Dose Inhaler 200 ACTUAT 2014-04 Yes 2 puff, Thaddeus mekhi Albuterol 2-05 INHALATION l 0.09 09:39: , QID, 0 [place] MG/ACTUAT 00 Refill(s) Metered Dose Inhaler Non-Formula 2014-04 Yes Refill(s) Irma almeida ry Home 2-05 0 l Medication 09:38: [place] 00 Non-Formula 2014-04 Yes Refill(s) [facility] almeida Home 2-05 0 l Medication 09:38: [place] 00 Non-Formula 2014-04 Yes Refill(s) Irma patel Home 2-05 0 l Medication 09:38: [place] 00 Non-Formula 2014-04 Yes Refill(s) Irma patel [...] Irma almeida ry 2-05 0 l 09:37: [place] 00 non-formula 2014-04 Yes Refill(s) Irma almeida ry 2-05 0 l 09:37: [place] 00 non-formula 2014-04 Yes Refill(s) Irma almeida ry 2-05 0 l 09:37: [place] 00 non-formula 2014-04 Yes Refill(s) Irma almeida ry 2-05 0 l 09:37: [place] 00 non-formula 2014-04 Yes Refill(s) Irma almeida ry 2-05 0 l 09:37: [place] 00 Morphine 2014-04 No Notes: Memoria 2-05 (Same l 06:01: as:MORPhin [place] 00 e Sulfate) Ondansetron 2014-04 No Notes: Thaddeus mekhi 2-05 (Same as: l 06:01: Zofran) [place] 00 MEDICATION WASTE Product Size: 4 mg [...] 0.9% 2-05 (Same as: l 06:01: BD [place] 00 Posiflush) Morphine 2014-04 No Notes: Memoria 2-05 (Same l 06:01: as:MORPhin [place] 00 e Sulfate) Ondansetron 2014-04 No Notes: Thaddeus mekhi 2-05 (Same as: l 06:01: Zofran) Jah 00 MEDICATION WASTE Product Size: 4 mg Product Wasted: ___ mg Sodium 2014-04 No 1,000 mL, Memori a Chloride 2-05 1000 l 0.154 06:01: ml/hr, [place] MEQ/ML 00 Infuse Injectable Over: 1 Solution hr, Route: IV, 1,000, Drug form: INJ, ONCE, Priority: STAT, Dosing Weight 122.727 kg, Start date: 03/28/15 0:01:00, Duration: 1 doses or times, Stop date: 03/28/15 0:01:00 Saline 2014-04 No Notes: Memoria Flush 0.9% 2-05 (Same as: l 06:01: BD Jah 00 Posiflush) Morphine 2014-04 No Notes: Memoria 2-05 (Same l 06:01: as:MORPhin [place] 00 e Sulfate) Ondansetron 2014-04 No Notes: Thaddeus mekhi 2-05 (Same as: l 06:01: Zofran) Jah 00 MEDICATION WASTE Product Size: 4 mg Product Wasted: ___ mg Sodium 2014-04 No 1,000 mL, Memori a Chloride 2-05 1000 l 0.154 06:01: ml/hr, [place] MEQ/ML 00 Infuse Injectable Over: 1 Solution hr, Route: IV, 1,000, Drug form: INJ, ONCE, Priority: STAT, Dosing Weight 122.727 kg, Start date: 03/28/15 0:01:00, Duration: 1 doses or times, Stop date: 03/28/15 0:01:00 Saline 2014-04 No Notes: Memoria Flush 0.9% 2-05 (Same as: l 06:01: BD Jah 00 Posiflush) Morphine 2014-04 No Notes: Memoria 2-05 (Same l 06:01: as:MORPhin [place] 00 e Sulfate) Ondansetron 2014-04 No Notes: Thaddeus mekhi 2-05 (Same as: l 06:01: Zofran) [place] 00 MEDICATION WASTE Product Size: 4 mg [...] 0.9% 2-05 (Same as: l 06:01: BD [place] 00 Posiflush) Morphine 2014-04 No Notes: Memoria 2-05 (Same l 06:01: as:MORPhin [place] 00 e Sulfate) Ondansetron 2014-04 No Notes: [...] 0.9% 2-05 (Same as: l 06:01: BD [place] 00 Posiflush) Combmartine Combmartine Yes Shelly 1 [...] kg Systolic blood 2021-07-02 19:02:00 128 mm[Hg] [facility] pressure Medicine Diastolic blood 2021-07-02 19:02:00 78 mm[Hg] [facility] of pressure Medicine Heart rate 2021-07-02 19:02:00 120 /min [facility] Body temperature 2021-07-02 19:02:[address] [facility] Body height 2021-07-02 19:02:00 165.1 cm [facility] Body weight 2021-07-02 19:02:00 100.699 kg [facility] BMI 2021-07-02 19:02:00 36.94 kg/m2 [facility] Systolic blood 2020-12-25 16:54:00 112 mm[Hg] [facility] pressure Medicine Diastolic blood 2020-12-25 16:54:00 71 mm[Hg] [facility] Medicine Heart rate 2020-12-25 16:54:00 86 /min [facility] Body temperature 2020-12-25 16:54:[address] [facility] Body height 2020-12-25 16:54:00 [facility].1 [facility] weight 2020-12-25 16:54:00 104.781 kg [facility] BMI 2020-12-25 16:54:00 38.44 kg/m2 [facility] Systolic blood 2020-12-25 16:09:00 118 mm[Hg] [facility] Medicine Diastolic blood 2020-12-25 16:09:00 79 mm[Hg] [facility] Medicine Heart rate 2020-12-25 16:09:00 106 /min [facility] height 2020-12-18 18:17:00 165.1 cm [facility] HEIGHT 2020-12-10 09:39:00 165.1 cm WEIGHT 2020-12-10 09:39:00 101.969 kg HEIGHT 2020-12-09 14:34:00 165.1 cm WEIGHT 2020-12-09 14:34:00 102.967 kg WEIGHT 2020-12-09 12:35:00 103.329 kg HEIGHT 2020-12-09 12:35:00 165.1 cm WEIGHT 2020-12-09 12:35:00 103.329 kg HEIGHT 2020-12-09 12:35:00 165.1 cm Systolic blood 2020-11-06 15:40:00 129 mm[Hg] [facility] pressure Medicine Diastolic blood 2020-11-06 15:40:00 76 mm[Hg] [facility] Medicine Heart rate 2020-11-06 15:40:00 91 /min [facility] Body temperature 2020-11-06 15:40:[address] [facility] Body height 2020-11-06 15:40:00 165.1 cm [facility] Body weight 2020-11-06 15:40:00 101.606 kg [facility] BMI 2020-11-06 15:40:00 37.28 kg/m2 [facility] Height 2019-07-08 14:21:00 165.1 cm [facility] Weight 2019-07-08 14:21:00 [facility] BMI Calculated 2019-07-08 14:21:00 [facility] [place] Respitory Rate 2017-02-14 19:00:00 Memori al [facility] Heart Rate 2017-02-14 19:00:00 [facility] Systolic (mm Hg) 2017-02-14 19:00:00 Thaddeus rial Jah Diastolic (mm Hg) 2017-02-14 19:00:00 Mem orial [facility] Heart Rate 2017-02-14 17:12:00 [facility] [place] Respitory Rate 2017-02-14 17:12:00 Memori al Jah Systolic (mm Hg) 2017-02-14 17:12:00 Thaddeus rial [place] Diastolic (mm Hg) 2017-02-14 17:12:00 Mem orial [place] Respitory Rate 2017-02-14 16:57:00 Mem[facility] al [facility] Heart Rate 2017-02-14 16:57:00 [facility] Systolic (mm Hg) 2017-02-14 16:57:00 Thaddeus rial Jah Diastolic (mm Hg) 2017-02-14 16:57:00 Mem [facility] BMI Calculated 2017-02-14 15:38:00 [facility] Weight 2017-02-14 15:38:00 [facility] [place] Height 2017-02-14 15:38:00 167.64 cm [facility] Temperature Oral (F) 2017-02-14 15:38:00 98.0 F [facility] [place] Respitory Rate 2016-09-07 06:40:00 [facility] [place] Heart Rate 2016-09-07 06:40:00 [facility] [place] Temperature Oral (F) 2016-09-07 06:40:00 98.6 F [facility] [place] Systolic (mm Hg) 2016-09-07 06:40:00 Thaddeus rial [place] Diastolic (mm Hg) 2016-09-07 06:40:00 Mem orial [place] Systolic (mm Hg) 2016-09-07 05:54:00 Thaddeus rial [place] Diastolic (mm Hg) 2016-09-07 05:54:00 Mem orial [place] Heart Rate 2016-09-07 05:54:00 [facility] [place] Respitory Rate 2016-09-07 05:54:00 Memori al Jah Temperature Oral (F) 2016-09-07 05:54:00 98.7 F [facility] [place] Height 2016-09-07 02:08:00 167.64 cm [facility] Temperature Oral (F) 2016-09-07 02:08:00 99.0 F [facility] [place] Respitory Rate 2016-09-07 02:08:00 Memori al [facility] Heart Rate 2016-09-07 02:08:00 [facility] [place] Systolic (mm Hg) 2016-09-07 02:08:00 Thaddeus rial [place] Diastolic (mm Hg) 2016-09-07 02:08:00 Mem [facility] Weight 2016-09-07 02:08:00 [facility] BMI Calculated 2016-09-07 02:08:00 [facility] [place] Heart Rate 2015-03-28 11:51:00 [facility] Temperature Oral (F) 2015-03-28 11:51:00 98.0 F [facility] Systolic (mm Hg) 2015-03-28 11:51:00 Thaddeus rial Jah Diastolic (mm Hg) 2015-03-28 11:51:00 Mem orial [facility] Respitory Rate 2015-03-28 11:51:00 Mem[facility] al [facility] Systolic (mm Hg) 2015-03-28 10:35:00 Thaddeus rial [place] Diastolic (mm Hg) 2015-03-28 10:35:00 Mem orial [place] Heart Rate 2015-03-28 10:35:00 [facility] Respitory Rate 2015-03-28 10:35:00 Memori al [facility] Systolic (mm Hg) 2015-03-28 09:36:00 Thaddeus rial [place] Diastolic (mm Hg) 2015-03-28 09:36:00 Mem orial [place] Heart Rate 2015-03-28 09:36:00 [facility] Respitory Rate 2015-03-28 09:36:00 [facility] Height 2015-03-28 05:58:00 165.1 cm [facility] BMI Calculated 2015-03-28 05:58:00 [facility] al [facility] Weight 2015-03-28 05:58:00 [facility] Temperature Oral (F) 2015-03-28 05:58:00 98.1 F [facility] Height 2013-03-14 17:00:00 167.64 cm [facility] Weight 2013-03-14 17:00:00 [facility] Procedures Procedure Date / Time Performed Performing Clinician [facility] e Partial hysterectomy [facility] Plan of Care Planned Activity Planned Date Details Comments Source Future Scheduled 2021-07-02 Screening for malignant [facility] of Test 13:02:47 neoplasm of colon Medicine (procedure) [code = 046176452] Future Scheduled 2021-07-[address] [facility] Test 13:02:47 neoplasm of breast Medicine (procedure) [code = 238758973] Future Scheduled 2021-07-02 COVID-19 Vaccine (1) [facility] Test 13:02:47 [code = COVID-19 Vaccine Med icine (1)] Future Scheduled 2021-07-02 Pneumococcal Combined (1 [facility] Test 13:02:47 of 4 - PCV13) [code = Medici ne Pneumococcal Combined (1 of 4 - PCV13)] Future Scheduled 2021-07-[address] [facility] Test 13:02:47 (regime/therapy) [code = Med icine [id number]] Future Scheduled 2021-07-02 ANNUAL DIABETIC [facility] of Test 13:02:47 RETINOPATHY SCREENING Medici ne [code = ANNUAL DIABETIC RETINOPATHY SCREENING] Future Scheduled 2021-07-02 Hepatitis C screening Ba [facility] Test 13:02:47 (procedure) [code = Medicine 268703198] Future Scheduled 2021-07-02 Human immunodeficiency B [facility] Test 13:02:47 virus screening Medicine (procedure) [code = 713694661] Future Scheduled 2021-07-[address] [facility] Test 13:02:47 neoplasm of cervix Medicine (procedure) [code = 944494559] Future Scheduled 2021-07-02 ZOSTER VACCINE (1 of 2) [facility] Test 13:02:47 [code = ZOSTER VACCINE (1 Me dicine of 2)] Future Scheduled 2021-07-02 MEDICARE IPPE (WELCOME TO [facility] of Test 13:02:47 MEDICARE) [code = Medicine MEDICARE IPPE (WELCOME TO MEDICARE)] Future Scheduled 2021-07-02 FLU VACCINE > 6 MONTHS B [facility] of Test 13:02:47 [code = FLU VACCINE > 6 Medi cine MONTHS] Future Scheduled 2021-07-02 TETANUS SHOT (ADULT) [facility] of Test 13:02:47 [code = TETANUS SHOT Medicin e (ADULT)] Future Scheduled 2021-07-02 BMI FOLLOW UP PLAN [code [facility] of Test 13:02:47 = BMI FOLLOW UP PLAN] Medici ne Future Scheduled 2020-12-25 ZOSTER VACCINE (1 of 2) [facility] Test 11:56:38 [code = ZOSTER VACCINE (1 Me dicine of 2)] Future Scheduled 2020-12-25 MEDICARE IPPE (WELCOME TO [facility] Test 11:56:38 MEDICARE) [code = Medicine MEDICARE IPPE (WELCOME TO MEDICARE)] Future Scheduled 2020-12-25 FLU VACCINE > 6 MONTHS B [facility] Test 11:56:38 [code = FLU VACCINE > 6 Medi cine MONTHS] Future Scheduled 2020-12-25 TETANUS SHOT (ADULT) [facility] Test 11:56:38 [code = TETANUS SHOT Medicin e (ADULT)] Future Scheduled 2020-12-25 BMI FOLLOW UP PLAN [code [facility] Test 11:56:38 = BMI FOLLOW UP PLAN] Medici ne Future Scheduled 2020-12-25 Screening for malignant [facility] of Test 11:56:38 neoplasm of colon Medicine (procedure) [code = 385249219] Future Scheduled 2020-12-[address] [facility] Test 11:56:38 neoplasm of breast Medicine (procedure) [code = 896311716] Future Scheduled 2020-12-25 COVID-19 Vaccine (1) [facility] of Test 11:56:38 [code = COVID-19 Vaccine Med icine (1)] Future Scheduled 2020-12-[address] [facility] Test 11:56:38 (regime/therapy) [code = Med icine 474888535] Future Scheduled 2020-12-25 ANNUAL DIABETIC [facility] of Test 11:56:38 RETINOPATHY SCREENING Medici ne [code = ANNUAL DIABETIC RETINOPATHY SCREENING] Future Scheduled 2020-12-25 Hepatitis C screening Ba [facility] of Test 11:56:38 (procedure) [code = Medicine 475033085] Future Scheduled 2020-12-25 Human immunodeficiency B [facility] of Test 11:56:38 virus screening Medicine (procedure) [code = 537929720] Future Scheduled 2020-12-25 Screening for malignant [facility] of Test 11:56:38 neoplasm of cervix Medicine (procedure) [code = 182153350] Future Scheduled 2020-12-25 ZOSTER VACCINE (1 of 2) [facility] Test 11:56:38 [code = ZOSTER VACCINE (1 Me dicine of 2)] Future Scheduled 2020-12-25 MEDICARE IPPE (WELCOME TO [facility] Test 11:56:38 MEDICARE) [code = Medicine MEDICARE IPPE (WELCOME TO MEDICARE)] Future Scheduled 2020-12-25 FLU VACCINE > 6 MONTHS B [facility] Test 11:56:38 [code = FLU VACCINE > 6 Medi cine MONTHS] Future Scheduled 2020-12-25 TETANUS SHOT (ADULT) [facility] Test 11:56:38 [code = TETANUS SHOT Medicin e (ADULT)] Future Scheduled 2020-12-25 BMI FOLLOW UP PLAN [code [facility] of Test 11:56:38 = BMI FOLLOW UP PLAN] Medici ne Future Scheduled 2020-12-25 Screening for malignant [facility] of Test 11:56:38 neoplasm of colon Medicine (procedure) [code = 779321972] Future Scheduled 2020-12-25 Screening for malignant [facility] of Test 11:56:38 neoplasm of breast Medicine (procedure) [code = 007438029] Future Scheduled 2020-12-25 COVID-19 Vaccine (1) [facility] of Test 11:56:38 [code = COVID-19 Vaccine Med icine (1)] Future Scheduled 2020-12-25 Diabetic foot examination [facility] of Test 11:56:38 (regime/therapy) [code = Med icine 027044144] Future Scheduled 2020-12-25 ANNUAL DIABETIC [facility] of Test 11:56:38 RETINOPATHY SCREENING Medici ne [code = ANNUAL DIABETIC RETINOPATHY SCREENING] Future Scheduled 2020-12-25 Hepatitis C screening [facility] of Test 11:56:38 (procedure) [code = Medicine 063762056] Future Scheduled 2020-12-25 Human immunodeficiency B [facility] Test 11:56:38 virus screening Medicine (procedure) [code = 971007545] Future Scheduled 2020-12-[address] [facility] Test 11:56:38 neoplasm of cervix Medicine (procedure) [code = 117520785] Future Scheduled 2020-12-25 ZOSTER VACCINE (1 of 2) [facility] Test 11:56:38 [code = ZOSTER VACCINE (1 Me dicine of 2)] Future Scheduled 2020-12-25 MEDICARE IPPE (WELCOME TO [facility] Test 11:56:38 MEDICARE) [code = Medicine MEDICARE IPPE (WELCOME TO MEDICARE)] Future Scheduled 2020-12-25 FLU VACCINE > 6 MONTHS B [facility] Test 11:56:38 [code = FLU VACCINE > 6 Medi cine MONTHS] Future Scheduled 2020-12-25 TETANUS SHOT (ADULT) [facility] Test 11:56:38 [code = TETANUS SHOT Medicin e (ADULT)] Future Scheduled 2020-12-25 BMI FOLLOW UP PLAN [code [facility] Test 11:56:38 = BMI FOLLOW UP PLAN] Medici ne Future Scheduled 2020-12-[address] [facility] Test 11:56:38 neoplasm of colon Medicine (procedure) [code = 843956650] Future Scheduled 2020-12-[address] [facility] Test 11:56:38 neoplasm of breast Medicine (procedure) [code = 399067941] Future Scheduled 2020-12-25 COVID-19 Vaccine (1) [facility] Test 11:56:38 [code = COVID-19 Vaccine Med icine (1)] Future Scheduled 2020-12-[address] [facility] Test 11:56:38 (regime/therapy) [code = Med icine 865071652] Future Scheduled 2020-12-25 ANNUAL DIABETIC [facility] of Test 11:56:38 RETINOPATHY SCREENING Medici ne [code = ANNUAL DIABETIC RETINOPATHY SCREENING] Future Scheduled 2020-12-25 Hepatitis C screening [facility] Test 11:56:38 (procedure) [code = Medicine 356626038] Future Scheduled 2020-12-25 Human immunodeficiency B [facility] Test 11:56:38 virus screening Medicine (procedure) [code = 840686402] Future Scheduled 2020-12-25 Screening for malignant [facility] of Test 11:56:38 neoplasm of cervix Medicine (procedure) [code = 657157032] Future Scheduled 2020-12-25 ZOSTER VACCINE (1 of 2) [facility] Test 11:56:38 [code = ZOSTER VACCINE (1 Me dicine of 2)] Future Scheduled 2020-12-25 MEDICARE IPPE (WELCOME TO [facility] Test 11:56:38 MEDICARE) [code = Medicine MEDICARE IPPE (WELCOME TO MEDICARE)] Future Scheduled 2020-12-25 FLU VACCINE > 6 MONTHS B [facility] Test 11:56:38 [code = FLU VACCINE > 6 Medi cine MONTHS] Future Scheduled 2020-12-25 TETANUS SHOT (ADULT) [facility] Test 11:56:38 [code = TETANUS SHOT Medicin e (ADULT)] Future Scheduled 2020-12-25 BMI FOLLOW UP PLAN [code [facility] Test 11:56:38 = BMI FOLLOW UP PLAN] Medici ne Future Scheduled 2020-12-[address] [facility] Test 11:56:38 neoplasm of colon Medicine (procedure) [code = 895768588] Future Scheduled 2020-12-[address] [facility] Test 11:56:38 neoplasm of breast Medicine (procedure) [code = 673973483] Future Scheduled 2020-12-25 COVID-19 Vaccine (1) [facility] Test 11:56:38 [code = COVID-19 Vaccine Med icine (1)] Future Scheduled 2020-12-[address] [facility] Test 11:56:38 (regime/therapy) [code = Med icine 929064299] Future Scheduled 2020-12-25 ANNUAL DIABETIC [facility] of Test 11:56:38 RETINOPATHY SCREENING Medici ne [code = ANNUAL DIABETIC RETINOPATHY SCREENING] Future Scheduled 2020-12-25 Hepatitis C screening Ba [facility] Test 11:56:38 (procedure) [code = Medicine 100479264] Future Scheduled 2020-12-25 Human immunodeficiency B [facility] Test 11:56:38 virus screening Medicine (procedure) [code = 537644584] Future Scheduled 2020-12-25 Screening for malignant [employer] of Test 11:56:38 neoplasm of cervix Medicine (procedure) [code = 291246772] Future Scheduled 2020-12-18 BMI FOLLOW UP PLAN [code [facility] of Test 13:30:20 = BMI FOLLOW UP PLAN] Medici ne Future Scheduled 2020-12-18 Screening for malignant [facility] of Test 13:17:57 neoplasm of colon Medicine (procedure) [code = 828150688] Future Scheduled 2020-12-18 Screening for malignant [facility] of Test 13:17:57 neoplasm of breast Medicine (procedure) [code = 110929468] Future Scheduled 2020-12-18 COVID-19 Vaccine (1) [facility] of Test 13:17:57 [code = COVID-19 Vaccine Med icine (1)] Future Scheduled 2020-12-[address] [facility] Test 13:17:57 (regime/therapy) [code = Med icine 128859968] Future Scheduled 2020-12-18 [facility] 13:17:57 RETINOPATHY SCREENING Medici ne [code = ANNUAL DIABETIC RETINOPATHY SCREENING] Future Scheduled 2020-12-18 Hepatitis C screening [facility] Test 13:17:57 (procedure) [code = Medicine 067536474] Future Scheduled 2020-12-18 Human immunodeficiency B [facility] Test 13:17:57 virus screening Medicine (procedure) [code = 860498491] Future Scheduled 2020-12-18 Screening for malignant [facility] of Test 13:17:57 neoplasm of cervix Medicine (procedure) [code = 192968235] Future Scheduled 2020-12-18 ZOSTER VACCINE (1 of 2) [facility] Test 13:17:57 [code = ZOSTER VACCINE (1 Me dicine of 2)] Future Scheduled 2020-12-18 MEDICARE IPPE (WELCOME TO [facility] of Test 13:17:57 MEDICARE) [code = Medicine MEDICARE IPPE (WELCOME TO MEDICARE)] Future Scheduled 2020-12-18 FLU VACCINE > 6 MONTHS B [facility] Test 13:17:57 [code = FLU VACCINE > 6 Medi cine MONTHS] Future Scheduled 2020-12-18 TETANUS SHOT (ADULT) [facility] of Test 13:17:57 [code = TETANUS SHOT Medicin e (ADULT)] Future Scheduled 2020-11-06 Screening for malignant [facility] of Test 13:13:10 neoplasm of colon Medicine (procedure) [code = 064055242] Future Scheduled 2020-11-[address] [facility] Test 13:13:10 neoplasm of breast Medicine (procedure) [code = 287061954] Future Scheduled 2020-11-06 COVID-19 Vaccine (1) [facility] Test 13:13:10 [code = COVID-19 Vaccine Med icine (1)] Future Scheduled 2020-11-06 TETANUS SHOT (ADULT) [facility] Test 13:13:10 [code = TETANUS SHOT Medicin e (ADULT)] Future Scheduled 2020-11-[address] [facility] Test 13:13:10 (regime/therapy) [code = Med icine 207516532] Future Scheduled 2020-11-06 ANNUAL DIABETIC [facility] of Test 13:13:10 RETINOPATHY SCREENING Medici ne [code = ANNUAL DIABETIC RETINOPATHY SCREENING] Future Scheduled 2020-11-06 Hepatitis C screening [facility] Test 13:13:10 (procedure) [code = Medicine 122569765] Future Scheduled 2020-11-06 Human immunodeficiency B [facility] 13:13:10 virus screening Medicine (procedure) [code = 830281579] Future Scheduled 2020-11-[address] [facility] Test 13:13:10 neoplasm of cervix Medicine (procedure) [code = 069165091] Future Scheduled 2020-11-06 ZOSTER VACCINE (1 of 2) [facility] 13:13:10 [code = ZOSTER VACCINE (1 Me dicine of 2)] Future Scheduled 2020-11-06 MEDICARE IPPE (WELCOME TO [facility] Test 13:13:10 MEDICARE) [code = Medicine MEDICARE IPPE (WELCOME TO MEDICARE)] Future Scheduled 2020-11-06 FLU VACCINE > 6 MONTHS B [facility] Test 13:13:10 [code = FLU VACCINE > 6 Medi cine MONTHS] Future Scheduled 2020-11-06 BMI FOLLOW UP PLAN [code [facility] Test 13:13:10 = BMI FOLLOW UP PLAN] Medici ne Encounters Start End Encounter Admission Attending Care Care Encounter Source Date/Time Date/Time Type Type Clinicians Facility Department ID 2021-06-08 Outpatient Marium Georges [facility] [id number] 07[facility]08[facility]00 [facility] 2021-05-22 Outpatient Georges, Na [facility] [id number] 10:06:02 [facility] 2021-05-19 Outpatient Debbie, Na [facility] [id number] 14:38:37 [facility] 2021-05-19 Outpatient Georges, Na [facility] [id number] 14:09:02 [id number] [facility] 2021-05-19 Outpatient Debbie, Na [facility] [id number] 14:01:41 [id number] [facility] 2021-05-19 Outpatient Debbie, Na [facility] [id number] 13:50:30 [id number] [facility] 2021-05-19 Outpatient Arash, [facility] [id number] 13:28:10 Shelly [id number] [facility] 2021-05-19 Outpatient Arash, [facility] [id number] 12:08:56 Shelly [id number] [facility] 2021-05-19 Outpatient Arash, [facility] [id number] 11:31:36 Shelly [id number] [facility] 2021-05-19 Outpatient Arash, [facility] [id number] 11:12:52 Shelly [id number] [facility] 2021-05-19 Outpatient Arash, [facility] [id number] 11:04:02 Shelly [id number] [facility] 2021-05-19 Outpatient Arash, [facility] [id number] 11:00:43 Shelly [id number] [facility] 2021-05-19 Outpatient Arash, [facility] [id number] 11:00:34 Shelly [id number] [facility] 2021-01-31 [facility] [id number] [facility] 05:40:26 BAIRON 2020-01-10 Outpatient NORM EWA MED [id number] [facility] 15:47:17 ASIA 2021-07-19 2021-07-19 ambulatory [facility] [id number] [facility] 2021-07-19 2021-07-19 ambulatory [facility] [id number] [facility] 2021-07-05 2021-07-05 ambulatory [facility] [id number] [facility] 2021-07-02 2021-07-02 Office ERMA BALDERAS [id number] [facility] 12:38:09 15:25:44 Visit BAIRON Grigsby [id number] Co llege [id number] of [id number] [facility] abraham 510 e 2021-05-14 2021-05-14 ambulatory [facility] [id number] [facility] 2021-02-12 2021-02-12 Outpatient ST[facility] [id number] [facility] 2020-12-25 2020-12-25 Office ERMA Balderas [id number] [facility] 11:48:52 12:03:52 Visit Bairon Alcalar [id number] College 0.2.7.2.686 of [id number] [facility] abraham 510 e 2020-12-25 2020-12-25 Office MICHELLE Alonzo [id number] [facility] 11:01:49 11:37:00 Visit Karine AMBULATOR [id number] College Y 0.2.7.2.686 of [id number] Medi abraham 800 e 2020-12-18 2020-12-18 Office MICHELLE Kingsley [id number] [facility] 12:52:33 13:52:10 Visit Karma AMBULATOR [id number] College Y 0.2.7.2.686 of [id number] [facility] abraham 800 e 2020-12-09 2020-12-09 Outpatient [facility] [id number] [facility] 00:00:00 00:00:00 2020-12-09 2020-12-09 Outpatient [facility] [id number] [facility] 00:00:00 00:00:00 2020-11-26 2020-11-26 Outpatient MICHELLE DAY [facility] [id number] [facility] [facility] 10:56:07 12:09:57 WHITNEY mera of Medicin e 2020-11-11 2020-11-11 Outpatient [facility] [id number] [facility] 00[facility] 00[facility]00:00 [facility] Outpati ent Clinics 2020-11-06 2020-11-06 Office ERMA Balderas [id number] [facility] 10:24:12 12:43:12 Visit Bairon Griselda Calista [id number] College [id number] of [id number] [facility] abraham 510 e 2020-11-06 2020-11-06 Outpatient MICHELLE GONZALES [facility] [id number] [facility] 11:50:11 12:35:12 JUAN FRANCISCO judgee of Medicin e 2020-09-25 2020-09-25 Outpatient MICHELLE BALDERAS [facility] [id number] [facility] 13:46:53 15:07:45 BAIRON mera of Medicin e 2019-12-04 2019-12-04 [facility] [id number] 08:52:00 08:52:00 [facility] Medicine Outpati ent Clinics 2019-11-07 2019-11-07 [facility] [id number] 15:00:00 15:00:00 t [facility] s [facility] Medicine l Medicine Outpati ent Clinics 2019-08-20 2019-08-20 [facility] [id number] 08:12:00 08:12:00 t [facility] s Road [facility] Medicine l Medicine Outpati ent Clinics 2019-08-14 2019-08-14 [facility] [id number] 11:00:00 11:00:00 t [facility] s Road [facility] Medicine l Medicine Outpati ent Clinics 2019-07-08 2019-07-09 Outpatient [place] [id number] [facility] 13:31:00 04:59:00 [facility] 00 l [facility] 2019-07-08 2019-07-08 Outpatient YALLAMPALLI [facility] [id number] [facility] 08:31:00 23:59:00 , [facility] 2019-07-08 2019-07-08 [facility] [id number] 13:11:00 13:11:00 t [facility] s [facility] Medicine l Medicine Outpati ent Clinics 2019-05-22 2019-05-22 [facility] [id number] 21:07:00 21:07:00 t [facility] s [facility] Medicine l Medicine Outpati ent Clinics 2019-05-22 2019-05-22 [facility] [id number] 09:30:00 09:30:00 t [facility] s [facility] Medicine l Medicine Outpati ent Clinics 2019-05-20 2019-05-20 [facility] [id number] 08:57:00 08:57:00 t [facility] s [facility] Medicine l Medicine Outpati ent Clinics 2019-05-16 2019-05-16 [facility] [id number] 14:55:00 14:55:00 t [facility] s [facility] Medicine l Medicine Outpati ent Clinics 2019-05-07 2019-05-07 [facility] [id number] 15:15:00 15:15:00 t [facility] s [facility] Family Medicine l Medicine Outpati ent Clinics 2017-02-14 2017-02-14 Emergency nullFlavo [facility] [id number] [facility] 15:33:00 19:15:00 r [place] 03 l [facility] 2016-09-07 2016-09-07 Emergency nullFlavo [facility] [id number] [facility] 01:43:00 06:42:00 r [place] 02 l [facility] 2015-03-28 2015-03-28 EC nullFlavo [facility] [id number] [facility] 05:42:00 12:26:00 Emergency r Jah 01 l [facility] 2013-03-14 2013-03-14 Outpatient nullFlavo [facility] [id number] [facility] 10:55:00 23:59:[address] [place] 00 l [place] Results Test Description Test Time Test Comments Results Result [facility] e Comments TISSUE EXAM 2021-03-09 Surgical Pathology Report 13:13:45 Case: [id number] Authorizing Provider: Bairon Balderas MD Collected: 12/10/2020 01:53 PM [facility]ing [facility] Received: 12/10/2020 02:08 PM SERVICES Pathologist: [...] FOLLOWING GENES : BRCA1, BRCA2, ERBB2, ESR1, GVQ0ZNJri scanned [employer] ReportAddendum electronically signed by Gretel Saenz MD on 03/09/2021 at 1:13 PMREASON FOR ADDENDUM : TO REPORT RESULTS OF MET AND PTENMET AMPLIFICATION : NOT DETECTED - MET (7q31) SIGNALS PER NUCLEUS : 2.1 - CEN7 SIGNALS PER NUCLEUS : 1.8 - MET/CEN7 SIGNAL RATIO : 1.1PTEN DELETION : DETECTEDSee scanned [employer]ogen[employer] ReportAddendum electronically signed by Gretle Saenz MD on 03/02/2021 at 9:35 AMREASON [...] MMR proteins: 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) 69078 X 1, 39938 x 3 Addendum electronically signed by Gretel [...] FOR CARCINOMA Signing Pathologist Direct Phone Line: [phone] y signed by Gretel Saenz MD on 12/15/2020 at 9:31 AMTUMOR STAGING (PATHOLOGY) S/P NEOADJUVANT THERAPYAnatomic site of tumor : LEFT CHEST WALL / BREASTHistologic type : Infiltrating ductal carcinoma, no special typeHistologic grade : G3, poorly differentiatedTumor size : 29mmPrimary tumor (T) : ptyZ7Qjsgl node (N) : xlsR6Qescmof : NegativeLYMPH NODE SUMMARYTotal # of sentinel [...] OF THE BREAST: COMPLETE EXCISION - All Bejvmgrjj4vr Edition - Protocol posted: 06/19/2019SPECIMEN Procedure: Excision [...] Performed on Case Number: BLOCK A11 A. [id number] X 1; 19109 X 1; 63796 X 4B. 46098 X 1C. 95914 X 1D. 43626 X 1Malignant neoplasm of left breast in [...] BLOCK A11ER - NEGATIVEPR - NEGATIVEHER2 - [id number] - [facility] REGULATION: FIXATION TIME FOR BIOMARKERS ASSESSMENTCollection date [...] using clones SP1, 1E2, 4B5 (FDA Approved [place] [employer]) and 30-9 respectively utilizing the ultraView [place] DAB Detection Kit from [employer] [place], [place].Control Slides Examined: In-house known ER, FL, HER2 and Ki67 positive controls were evaluated along with test tissue. These control slides run alongside of the patients sample show appropriate staining.Interpretive Criteria: The staining results are according to the ASCO/CAP guidelines for HER2 (see Yovana CESPEDES, Day Maldonado, et al. HER 2 Testing in Breast Cancer: ASCO/CAP Focused Update. Arch Pathol Lab Med. 2018;142(11):3254-2828. doi:10.5858/arpa.2018-090 2-SA) and ER/FL (see Carmen Ziegler, Monica Solis, et al. ER and FL Testing in Breast Cancer: ASCO/CAP Guideline Update. J Clin Oncol. 2020;38(12):6528-0771. doi:10.1200/JCO.19.24382) .By ASCO/CAP guidelines, ER and FL "positive" requires greater or equal to 1% [...] in <= 10% of invasive tumor cells.The ER/FL Proportion Score indicates the proportion of positive [...] status.Immunohistochemist ry technical testing was performed at [facility], Pathology Laboratory where it was developed [...] to perform high complexity clinical laboratory testing. [facility], Department of Pathology, [address] [place] [id number], [facility], [address] [place] [address], [facility], [facility] of [facility], [address] [place] [address], a. Received fresh labeled with the patient's [...] tissue. No other discrete mass is identified. Global President sections are submitted.Time in formalin: 12/10/20 at 3:00 PM.Ink code:Blue: Superficial superior margin Red: Superficial inferior marginBlack: DeepSection code:A1: Perpendicular sections of the medial marginA2: Fibrotic area from slice 5A3: Fibrotic area from slice 6A4: Fibrotic area with adipose nodule from slice 8A5: Fibrotic area from slice 9A6: Fibrotic area from slice 89Y0-R6: Bookend sections to mass from slice 11 submitted superior to inferiorA9: Superficial superior margin with skin from slice 12A10: Superficial inferior margin with skin from slice 71B77-Y33: Mass from superior to inferior with deep margin from slice 57H10-X39: Thinned section of mass from slice 12, submitted superior to inferior with deep nbjpslE43: Superficial superior margin with skin from slice 13A16: Superficial inferior margin with skin from slice 76E73-K17: Mass from superior to inferior with deep margin from slice 13, area around fwwvL26-U65: Thinned section of mass from slice 13, submitted superior to inferior with deep bsingcV66-W92: Bookend sections to mass from slice 14 submitted superior to yhmmrkhbN84: Fibrotic area with adipose nodule from slice [...] code: True margin black and opposite surface orange.Global President sections are submitted from the specimen in [...] code: Sutured portion of the specimen inked blue.Global President sections are submitted from the specimen.Section code: C1, five whole possible nodes; C2, one indurated hernández-white to echeverria-yellow area, bisected; C3, metals sales representative sections of the matted nodes; [...] 138 mg/dL 70-110 H : TESTED AT [facility] [address] [facility] (test code = 1538) [facility], [address]: Ecmo Specialist/Techni ang ID = [id number] for Lisbeth Paez BASIC METABOLIC [id number] 06:41:00 Test Item Value Reference Range Interpretation [...] S NOT APPLICABLE FOR DIALYSIS PATIEN TS. Ecmo Specialist ID - RALF [id number] 06:41:00 Test Item Value Reference Range Interpretation Comments MAGNESIUM (BEAKER) (test code = 1.5 mg/dL 1.6-2.6 L 627) Ecmo Specialist ID - RALF ELKINSWTSCNWBYWCT0652-91-32 06:41:00 Test Item Value Reference Range Interpretation Comments PHOSPHORUS (BEAKER) (test code = 1.9 mg/dL 2.3-4.7 L 604) Ecmo Specialist ID - RALF MCBC W/PLT COUNT & AUTO [id number] 06:12:00 Test Item Value Reference Range Interpretation [...] PERCENT (BEAKER) (test code = 2801) CALCIUM, [id number] 06:07:00 Test Item Value Reference Range Interpretation Comments CALCIUM IONIZED (BEAKER) (test 1.08 mmol/L 1.12-1.27 L code = 698) PH, BLOOD (BEAKER) (test code = 7.44 1810) POCT-GLUCOSE [id number] 22:12:00 Test Item Value Reference Range Interpretation Comments POC-GLUCOSE METER 219 mg/dL 70-110 H : TESTED A T [facility] 67[address] (BEAKER) (test code = [facility], [facility]) [address]: Ecmo Specialist/Techni ang ID = [id number] for Carlos Manuel Coello POCT-GLUCOSE [id number] 15:48:00 Test Item Value Reference Range Interpretation Comments POC-GLUCOSE METER 183 mg/dL 70-110 H : TESTED A T [facility] 6720 (BEAKER) (test code = [facility], [facility]) [address]: Ecmo Specialist/Techni ang ID = [id number] for Ag Jesenia garayn POCT-GLUCOSE [id number] 11:07:00 Test Item Value Reference Range Interpretation Comments POC-GLUCOSE METER 188 mg/dL 70-110 H : TESTED A T [facility] 67[address] (BEAKER) (test code = [facility], 153) [address]: Ecmo Specialist/Techni ang ID = [id number] for Ag tanisha, Lisbeth POCT-GLUCOSE [id number] 08:00:00 Test Item Value Reference Range Interpretation Comments POC-GLUCOSE METER 193 mg/dL 70-110 H : TESTED A T [facility] 6720 (BEAKER) (test code = [facility], 1538) [address]: Ecmo Specialist/Techni ang ID = [id number] for Lisbeth Tran POCT-GLUCOSE [id number] 00:26:00 Test Item Value Reference Range Interpretation Comments POC-GLUCOSE METER 221 mg/dL 70-110 H : TESTED A T [facility] 6720 (BEAKER) (test code = [facility], 1538) [address]: Ecmo Specialist/Techni ang ID = [id number] for BEKA HARVEY POCT-GLUCOSE [id number] 21:04:00 Test Item Value Reference Range Interpretation Comments POC-GLUCOSE METER 203 mg/dL 70-110 H : TESTED A T [facility] 67[address] (BEAKER) (test code = [facility], 1538) [address]: Ecmo Specialist/Techni ang ID = [id number] for PEREZ CRUZ POCT-GLUCOSE [id number] 10:45:00 Test Item Value Reference Range Interpretation Comments POC-GLUCOSE METER 140 mg/dL 70-110 H : TESTED A T [facility] 67[address] (BEAKER) (test code = [facility], 1538) [address]: Ecmo Specialist/Techni ang ID = [id number] for CONNIE MAYORGA SARS-COV2/RT-PCR ([facility])2020-12-10 03:39:00 Test Item Value Reference Range Interpretation Comments SARS-COV2/RT-PCR (test code = Negative Negative [id number]) Negative result for this test determines that [...] the Mo SARS-CoV-2 assay.Fact Sheet for Healthcare Providers:https://www.[employer]Bluesocket/josué/RT SARS-CoV-2 HCP Fact Sheet 51- 708773.pdfFact Sheet for Healthcare Patients:https://www.[employer]/josué/RT SARS-CoV-2 Patient Fact Sheet EN 51-289493F8.etyWZZJYZCRSONQ6748-27-21 13:09:00 Test Item Value Reference Range Interpretation Comments SODIUM (BEAKER) (test code = 381) 142 meq/L 136-145 POTASSIUM (BEAKER) (test code = 4.1 meq/L 3.5-5.1 379) CHLORIDE (BEAKER) (test code = 382) 105 meq/L 98-107 CO2 (BEAKER) (test code = 355) 25 meq/L 22-29 Ecmo Specialist KENNETH ATKINS [id number] 13:09:00 Test Item Value Reference Range Interpretation Comments GLUCOSE RANDOM (BEAKER) (test code 161 mg/dL 70-105 H = 652) Ecmo Specialist KENNETH ATKINS FBUN AND CREATININE [id number] 13:09:00 Test Item Value Reference Range Interpretation Comments BLOOD UREA NITROGEN 12 mg/dL 7-21 (BEAKER) (test code = 354) CREATININE (BEAKER) 0.75 mg/dL 0.57-1.25 (test code = 358) BUN/CREAT RATIO 16 For a normal (BEAKER) (test code individu al on a = [id number]) normal diet, t he reference inter zara for the mass ra corina ranges between 12:1 and 20:1 (BUN i n mg/dL/creatinin e in mg/dL) EGFR (KYLIE) (test 96 mL/min/1.73 ESTIMA ALVARO GFR IS code = 1092) sq m NOT ACCURATE CREATININE CLEARANCE IN PREDICTING GLOMERULAR FILTRATION RATE . ESTIMATED GFR I S NOT APPLICABLE FOR DIALYSIS PATIEN TS. Ecmo Specialist ID - [place] [id number] 12:46:00 Test Item Value Reference Range Interpretation Comments HEMOGLOBIN (KYLIE) (test code = 12.0 GM/DL 11.2-15.7 410) Ecmo Specialist ID - [id number] 14:23:00 Test Item Value Reference Range Interpretation Comments PT (test code = PT) 13.8 s 12.0-14.7 [facility]VVN6586[facility]-02 14:23:00 Test Item Value Reference Range Interpretation Comments INR (test code = INR) 1.06 1 0.85-1.17 [facility] H[id number] 14:23:00 Test Item Value Reference Range Interpretation Comments PTT (test code = PTT) 28.8 s 22.9-35.8 [facility] HospitalQufrtqtKJJCDZTYVI7186-13-75 14:23:00 Test Item Value Reference Range Interpretation Comments PT (test code = PT) 13.8 s 12.0-14.7 [facility] HospitalKjpjebiMDLCYRXWBM5153-14-09 14:23:00 Test Item Value Reference Range Interpretation Comments INR (test code = INR) 1.06 1 0.85-1.17 [facility] HospitalVksbroxRJWSFYGRSB2566-04-69 14:23:00 Test Item Value Reference Range Interpretation Comments PTT (test code = PTT) 28.8 s 22.9-35.8 [facility] HospitalWwexpmuOYKSGMPLLT4979-14-86 14:23:00 Test Item Value Reference Range Interpretation Comments PT (test code = PT) 13.8 s 12.0-14.7 [facility] HospitalRetimaxHRZAHVRUOQ5981-73-47 14:23:00 Test Item Value Reference Range Interpretation Comments INR (test code = INR) 1.06 1 0.85-1.17 [facility] HospitalUveddxjNMXMBHYOMZ9898-60-02 14:23:00 Test Item Value Reference Range Interpretation Comments PTT (test code = PTT) 28.8 s 22.9-35.8 [facility] HospitalQurvdhvTIMMIIKMVL0559-87-44 14:23:00 Test Item Value Reference Range Interpretation Comments PT (test code = PT) 13.8 s 12.0-14.7 [facility]SefxbrwXYENORPJKU1879-76-25 14:23:00 Test Item Value Reference Range Interpretation Comments INR (test code = INR) 1.06 1 0.85-1.17 [facility] HospitalCiuzmykMZOKUAJZIE7678-33-40 14:23:00 Test Item Value Reference Range Interpretation Comments PTT (test code = PTT) 28.8 s 22.9-35.8 [facility] LancasterTpdjxpqZTPBDUGJMX0628-63-58 14:23:00 Test Item Value Reference Range Interpretation Comments PT (test code = PT) 13.8 s 12.0-14.7 [facility] LancasterYegnyovORENUYYTXA0681-40-03 14:23:00 Test Item Value Reference Range Interpretation Comments INR (test code = INR) 1.06 1 0.85-1.17 [facility] HospitalVbseofvRIMPIPOTZP9338-61-45 14:23:00 Test Item Value Reference Range Interpretation Comments PTT (test code = PTT) 28.8 s 22.9-35.8 [facility] LancasterFplkglhNKVOOHJKII6650-83-42 14:23:00 Test Item Value Reference Range Interpretation Comments PT (test code = PT) 13.8 s 12.0-14.7 [facility] LancasterYfvqcyfQFWSJKAIDV3808-41-51 14:23:00 Test Item Value Reference Range Interpretation Comments INR (test code = INR) 1.06 1 0.85-1.17 [facility] LancasterRjnznlgEGMMXVDUFX9848-29-45 14:23:00 Test Item Value Reference Range Interpretation Comments PTT (test code = PTT) 28.8 s 22.9-35.8 [facility] [id number] 07:00:00Performed (03/28/15 1:00 AM) [facility] [id number] 07:00:00Negative (03/28/15 1:00 AM) [facility] [id number] 07:00:000.2[facility] [id number] 07:00:00Negative (03/28/15 1:00 AM)[facility] [id number] 07:00:00Negative *NA*(03/28/15 1:00 AM)[facility] [id number] 07:00:00Negative (03/28/15 1:00 AM)[facility] [id number] 07:00:00Trace *ABN*(03/28/15 1:00 AM)[facility] [id number] 07:00:00Negative (03/28/15 1:00 AM)[facility] [id number] 07:00:00 Test Item Value Reference Range Interpretation Comments UA pH (test code = UA pH) 5.5 1 5.0-8.0 [facility] [id number] 07:00:00Negative (03/28/15 1:00 AM) [facility] [id number] 07:00:00Slight Cloudy (03/28/15 1:00 AM)[facility] [id number] 07:00:00>=1.030 *ABN*(03/28/15 1:00 AM)[facility] [id number] 07:00:00Yellow *NA*(03/28/15 1:00 AM)[facility] [id number] 07:00:00Performed (03/28/15 1:00 AM)[facility] [id number] 07:00:00Negative (03/28/15 1:00 AM)[facility] [id number] 07:00:000.2[facility] [id number] 07:00:00Negative (03/28/15 1:00 AM)[facility] [id number] 07:00:00Negative *NA*(03/28/15 1:00 AM)[facility] [id number] 07:00:00Negative (03/28/15 1:00 AM)[facility] [id number] 07:00:00Trace *ABN*(03/28/15 1:00 AM)[facility] [id number] 07:00:00Negative (03/28/15 1:00 AM)[facility] [id number] 07:00:00 Test Item Value Reference Range Interpretation Comments UA pH (test code = UA pH) 5.5 1 5.0-8.0 [facility] [id number] 07:00:00Negative (03/28/15 1:00 AM) [facility] [id number] 07:00:00Slight Cloudy (03/28/15 1:00 AM)[facility] [id number] 07:00:00>=1.030 *ABN*(03/28/15 1:00 AM)[facility] [id number] 07:00:00Yellow *NA*(03/28/15 1:00 AM)[facility] [id number] 07:00:00Performed (03/28/15 1:00 AM)[facility] [id number] 07:00:00Negative (03/28/15 1:00 AM)[facility] [id number] 07:00:000.2[facility] [id number] 07:00:00Negative (03/28/15 1:00 AM)[facility] [id number] 07:00:00Negative *NA*(03/28/15 1:00 AM)[facility] [id number] 07:00:00Negative (03/28/15 1:00 AM)[facility] [id number] 07:00:00Trace *ABN*(03/28/15 1:00 AM)[facility] [id number] 07:00:00Negative (03/28/15 1:00 AM)[facility] [id number] 07:00:00 Test Item Value Reference Range Interpretation Comments UA pH (test code = UA pH) 5.5 1 5.0-8.0 [facility] [id number] 07:00:00Negative (03/28/15 1:00 AM) [facility] [id number] 07:00:00Slight Cloudy (03/28/15 1:00 AM)[facility] [id number] 07:00:00>=1.030 *ABN*(03/28/15 1:00 AM)[facility] [id number] 07:00:00Yellow *NA*(03/28/15 1:00 AM)[facility] [id number] 07:00:00Performed (03/28/15 1:00 AM)[facility] [id number] 07:00:00Negative (03/28/15 1:00 AM)[facility] [id number] 07:00:000.2[facility] [id number] 07:00:00Negative (03/28/15 1:00 AM)[facility] [id number] 07:00:00Negative *NA*(03/28/15 1:00 AM)[facility] [id number] 07:00:00Negative (03/28/15 1:00 AM)[facility] [id number] 07:00:00Trace *ABN*(03/28/15 1:00 AM)[facility] [id number] 07:00:00Negative (03/28/15 1:00 AM)[facility] [id number] 07:00:00 Test Item Value Reference Range Interpretation Comments UA pH (test code = UA pH) 5.5 1 5.0-8.0 [facility] [id number] 07:00:00Negative (03/28/15 1:00 AM) [facility] [id number] 07:00:00Slight Cloudy (03/28/15 1:00 AM)[facility] [id number] 07:00:00>=1.030 *ABN*(03/28/15 1:00 AM)[facility] [id number] 07:00:00Yellow *NA*(03/28/15 1:00 AM)[facility] [id number] 07:00:00Performed (03/28/15 1:00 AM)[facility] [id number] 07:00:00Negative (03/28/15 1:00 AM)[facility] [id number] 07:00:000.2[facility] [id number] 07:00:00Negative (03/28/15 1:00 AM)[facility] [id number] 07:00:00Negative *NA*(03/28/15 1:00 AM)[facility] [id number] 07:00:00Negative (03/28/15 1:00 AM)[facility] [id number] 07:00:00Trace *ABN*(03/28/15 1:00 AM)[facility] [id number] 07:00:00Negative (03/28/15 1:00 AM)[facility] [id number] 07:00:00 Test Item Value Reference Range Interpretation Comments UA pH (test code = UA pH) 5.5 1 5.0-8.0 [facility] [id number] 07:00:00Negative (03/28/15 1:00 AM) [facility] [id number] 07:00:00Slight Cloudy (03/28/15 1:00 AM)[facility] [id number] 07:00:00>=1.030 *ABN*(03/28/15 1:00 AM)[facility] [id number] 07:00:00Yellow *NA*(03/28/15 1:00 AM)[facility] [id number] 07:00:00Performed (03/28/15 1:00 AM)[facility] [id number] 07:00:00Negative (03/28/15 1:00 AM)[facility] [id number] 07:00:000.2[facility] [id number] 07:00:00Negative (03/28/15 1:00 AM)[facility] [id number] 07:00:00Negative *NA*(03/28/15 1:00 AM)[facility] [id number] 07:00:00Negative (03/28/15 1:00 AM)[facility] [id number] 07:00:00Trace *ABN*(03/28/15 1:00 AM)[facility] [id number] 07:00:00Negative (03/28/15 1:00 AM)[facility] [id number] 07:00:00 Test Item Value Reference Range Interpretation Comments UA pH (test code = UA pH) 5.5 1 5.0-8.0 [facility] [id number] 07:00:00Negative (03/28/15 1:00 AM) [facility] [id number] 07:00:00Slight Cloudy (03/28/15 1:00 AM)[facility] [id number] 07:00:00>=1.030 *ABN*(03/28/15 1:00 AM)[facility] [id number] 07:00:00Yellow *NA*(03/28/15 1:00 AM)[facility] [id number] 06:33:69349Wjqrulpi HermannCHEM [id number] 06:33:0014[facility] [id number] 06:33:007.8 [facility] [id number] 06:33:001.2[facility] PANEL 2015-03-28 06:33:003.0[facility] [id number] 06:33:0087[facility]annCHEM LCNNY6821-07-51 06:33:34684Eruogssg HermannCHEM MMWBN7624-13-27 06:33:000.3[facility]annCHEM FFTPX3425-75-36 06:33:0026[facility]annCHEM EBIEY6460-29-75 06:33:008[facility]CHE[facility] CVZUL5356-96-86 06:33:003.6 [facility] DSSRP4797-04-10 06:33:008.9[facility]annCHEM PANEL 2015-03-28 06:33:006.6[facility]annCHEM DOCRU2541-36-25 06:33:05494Fznhadlf HermannCHEM THAUO2614-63-76 06:33:0028[facility]annCHE[facility] NXHLJ9295-41-78 06:33:000.88[facility]annCHEM CPSJL3185-77-67 06:33:18852Lpscurpz HermannCHEM LOKYM3061-15-84 06:33:003.8[facility]annCHEM AHHAV5078-74-25 06:33:0012 [facility] BJTUY7420-10-18 06:33:47522Rfmxkkif HermannHEMATOLOGY 2015-03-28 06:33:0050.4[facility] KyajtjbUEWDKRIBVT2955-54-76 06:33:007.0[facility] PgxwmxnUHHJQWPMKW4437-20-27 06:33:003.9[facility] WawquddOJBVQXPTLZ1165-60-38 06:33:007.9[facility] QawuzqjKJPSLEJIUB2363-75-23 06:33:0033.8[facility] Jah JAQPXQLMFN1872-35-60 06:33:000.9[facility] WgefdgeNKKNWRNIGG2174-00-88 06:33:000.5 [facility] JhopkscSHPASQEBKK8249-95-07 06:33:000.6[facility] HermannHEMATOLOGY 2015-03-28 06:33:000.1[facility] NnuqvgvSCYMTRUHQY2549-60-58 06:33:002.6[facility] VyqpzpyZURHWMVFSW8552-67-71 06:33:0013.3[facility] BjuklgyZKWGAPQCQK5682-97-91 06:33:004.70[facility] RfsxqdzQLTCOPZYDS3741-30-48 06:33:007.7[facility] NIIPVYGYDO6526-82-21 06:33:0013.0[facility] DdvzmncVKENKVJDCY1061-03-24 06:33:00 32.5[facility] NjfbeczKFMTAYIJJS3846-84-41 06:33:0040.9[facility] HermannHEMATOLOGY 2015-03-28 06:33:00 Test Item Value Reference Range Interpretation Comments MCH (test code = MCH) 28.3 pg 27.0-31.0 [facility] TowzctaNGVMGNWEIM1148-54-51 06:33:0087.0[facility]annHEMATOLOGY 2015-03-28 06:33:008.2[facility] IoolsumEIXIXLRQNV1593-83-59 06:33:56651Tzkbylzo HermannCHEM WZAJG7192-39-00 06:33:64852Qsjkgnyd HermannCHEM TRVWH5828-10-17 06:33:0014[facility]annCHE[facility] UXZGA1848-05-16 06:33:007.8[facility]annCHEM PLIVO1418-95-58 06:33:001.2[facility]annCHEM BNWZD0773-49-74 06:33:003.0 [facility] PTGBV5526-29-45 06:33:0087[facility]annCHEM PANEL 2015-03-28 06:33:48701Lqnizcbx HermannCHEM ECDBL0618-90-19 06:33:000.3[facility]annCHEM OCWBE4696-66-59 06:33:0026[facility]annCHE[facility] EIMUY6788-35-05 06:33:008[facility]CHE[facility] HBMQG8523-23-65 06:33:003.6[facility]CHE[facility] TLWMT1753-77-86 06:33:008.9[facility]annCHE[facility] DXQEX8046-10-27 06:33:006.6 [facility] MXQAU8768-68-57 06:33:33137Fonktdqp HermannCHEM PANEL 2015-03-28 06:33:0028[facility]annCHEM LHCQQ6688-40-37 06:33:000.88[facility]annCHE[facility] BDCOF9572-12-12 06:33:16516Tvwnkuvo HermannCHEM NVXXM8584-20-53 06:33:003.8[facility]annCHEM ROACZ6817-06-15 06:33:0012[facility]annCHE[facility] TRPGS7089-92-26 06:33:77692Zasjkqmc BhvrqfmIBIMUQJAPF3957-14-73 06:33:0050.4 [facility] XjkpxsyVHBDDKHXPY2954-16-99 06:33:007.0[facility] HermannHEMATOLOGY 2015-03-28 06:33:003.9[facility] MlvzimlJEQKQMADSE1595-31-08 06:33:007.9[facility] BiggckoHBQONSRHVU0455-89-34 06:33:0033.8[facility] TmiagovZEMKRPJHBS2017-31-28 06:33:000.9[facility] PemvqhsLLOZEMRESP6779-82-27 06:33:000.5[facility] SCPQVCVAHJ5857-05-19 06:33:000.6[facility] CppmldoQTEBZAMMTI0468-78-96 06:33:000.1 [facility] CudhpchBWWKYMYGMC9599-84-25 06:33:002.6[facility] HermannHEMATOLOGY 2015-03-28 06:33:0013.3[facility] KcturxqVLPETWDKTR4415-54-49 06:33:004.70[facility] BzaeatoBWVTUCVGVC1770-05-42 06:33:007.7[facility] BqoblzfVCGLLLJBWB0478-72-60 06:33:0013.0[facility] QkxiwrlDJBNWOZWXN5653-53-87 06:33:0032.5[facility] Jah VYPEDIJPFY2953-25-54 06:33:0040.9[facility] EoggrwiNBWHGFJMHV7861-31-90 06:33:00 Test Item Value Reference Range Interpretation Comments MCH (test code = MCH) 28.3 pg 27.0-31.0 [facility] IjnwmuzZJLVYITKGR0385-30-34 06:33:0087.0[facility] HermannHEMATOLOGY 2015-03-28 06:33:008.2[facility] PihkpisCWWZUUUWHL9136-55-75 06:33:91752Kiqxfumi HermannCHEM ASEFD0181-99-90 06:33:70099Aubfflyn HermannCHEM LXGDS8975-91-39 06:33:0014[facility]annCHE[facility] URSSY4753-58-88 06:33:007.8[facility]annCHEM SELFS3425-53-45 06:33:001.2[facility]annCHEM FECWV0119-33-12 06:33:003.0 [facility]CHE[facility] OTLNO5586-85-04 06:33:0087[facility]annCHEM PANEL 2015-03-28 06:33:85099Lphhcnwt HermannCHEM SXCFH4609-03-26 06:33:000.3[facility]annCHEM SEPUF4714-48-24 06:33:0026[facility]annCHE[facility] VPWFJ6582-98-70 06:33:008[facility]CHE[facility] YHHVZ4556-10-09 06:33:003.6[facility]annCHEM ZUEBY7971-93-10 06:33:008.9[facility]annCHEM FJZWO7167-21-81 06:33:006.6 [facility]annCHE[facility] GAYVS5315-51-02 06:33:36201Mwlcrcqp HermannCHEM PANEL 2015-03-28 06:33:0028[facility]annCHEM YNEXJ9448-34-70 06:33:000.88[facility] HermannCHEM AVLLE1983-11-40 06:33:82545Pthacznq HermannCHEM AEGXQ7653-89-36 06:33:003.8[facility]annCHEM PMIXA1725-65-09 06:33:0012[facility]annCHEM DWOXW2587-79-00 06:33:16692Tjscmdxu ZbjildvKMRDBBBFTT0673-79-78 06:33:0050.4 [facility] WljwmdbHKTDARYFPA0266-68-84 06:33:007.0[facility] HermannHEMATOLOGY 2015-03-28 06:33:003.9[facility] PapwkejCIAHHZDSSS6029-49-34 06:33:007.9[facility] TcbfkqoWCNRFMERTQ2789-00-14 06:33:0033.8[facility] CpxbuwdEMULOOYWCO9757-49-59 06:33:000.9[facility] EtathngOTUBMAZNMX0047-89-03 06:33:000.5[facility] Jah MOFNENNMHQ8655-93-12 06:33:000.6[facility] NkujqylJWPRQVWFKM8283-63-31 06:33:000.1 [facility] IfpgkxbMKVATJPMBT3950-22-33 06:33:002.6[facility] HermannHEMATOLOGY 2015-03-28 06:33:0013.3[facility] BmyuxmdLXIRIHZZUE2296-34-95 06:33:004.70[facility] NjutolrDIDIBENUGM1148-92-94 06:33:007.7[facility] HzotvwqUERFNPOQYP8225-29-85 06:33:0013.0[facility] DafqutpYODXQTNXJU4112-99-92 06:33:0032.5[facility] QTBIBDFIJH4233-89-37 06:33:0040.9[facility] JjjiixbSVZPLOZSSO2634-20-39 06:33:00 Test Item Value Reference Range Interpretation Comments MCH (test code = MCH) 28.3 pg 27.0-31.0 [facility] HxsqelgMDJKQGLDJD2242-04-78 06:33:0087.0[facility] HermannHEMATOLOGY 2015-03-28 06:33:008.2[facility] LtdigptKCMONVTFFY6128-74-81 06:33:76470Bxyhnsvl HermannCHEM QIGSU3735-79-36 06:33:02033Bfgmfgig HermannCHEM GVBZS8065-12-00 06:33:0014[facility]annCHEM JOYMC7242-18-93 06:33:007.8[facility]annCHEM AVUVX7197-03-53 06:33:001.2[facility]annCHEM ARJWD8437-67-52 06:33:003.0 [facility]CHE[facility] UWIKX9400-59-31 06:33:0087[facility]annCHEM PANEL 2015-03-28 06:33:09034Byvflnar HermannCHEM PGBFH1427-86-63 06:33:000.3[facility]annCHEM RLFIX6129-93-14 06:33:0026[facility]annCHEM IXZTM6216-77-79 06:33:008[facility]annCHEM GQALU4027-24-47 06:33:003.6[facility]annCHEM XAMUC0494-36-40 06:33:008.9[facility]annCHEM GBTJO4612-21-41 06:33:006.6 [facility]annCHE[facility] ITWLJ4049-80-65 06:33:42486Wotnrywy HermannCHEM PANEL 2015-03-28 06:33:0028[facility]annCHEM QKITB6809-75-23 06:33:000.88[facility]annCHEM HFWHO5921-52-66 06:33:89493Cfzrqbjz HermannCHEM OUSRA6953-81-51 06:33:003.8[facility]annCHEM CCDPF6355-53-09 06:33:0012[facility]annCHEM KBXQO3408-34-05 06:33:97253Ppbxoocn GmkzhlaJCKSGECIRE4876-82-72 06:33:0050.4 [facility] ZbuovgzLKTIRFNDJR4737-68-88 06:33:007.0[facility] HermannHEMATOLOGY 2015-03-28 06:33:003.9[facility] WgbaqxcKQKEJXRNBO4768-54-18 06:33:007.9[facility] FmcdmouMRRUDHFHKT8966-79-92 06:33:0033.8[facility] LxmabvnDZARCLFAVJ2594-10-57 06:33:000.9[facility] OpifewmGATEFZBCXA3522-14-33 06:33:000.5[facility] SCFVLPCWCW9627-78-39 06:33:000.6[facility] UmwngjvVPLIMFEQUA5050-19-45 06:33:000.1 [facility] XkoujtzPVBGTEPFSI5817-31-79 06:33:002.6[facility] HermannHEMATOLOGY 2015-03-28 06:33:0013.3[facility] KefxdksXWBRETKIWP1620-48-74 06:33:004.70[facility] PfuwhomRHDVLVRYFE5595-72-12 06:33:007.7[facility] GacpbwhGIXXYQHDCL4138-25-00 06:33:0013.0[facility] OglmdgjTTQSQICGNC1447-03-86 06:33:0032.5[facility] BPSJJDXIVH7927-38-19 06:33:0040.9[facility] EioqibpVXPOSIHLEY6569-66-31 06:33:00 Test Item Value Reference Range Interpretation Comments MCH (test code = MCH) 28.3 pg 27.0-31.0 [facility] JphkwbiKBTTVSPNKD1109-38-05 06:33:0087.0[facility]annHEMATOLOGY 2015-03-28 06:33:008.2[facility] IlhuwzrUEBWBVCZQJ0303-99-79 06:33:15632Hppxozul HermannCHEM NUSJQ4286-06-29 06:33:29187Rhecmvpb HermannCHEM ZBXUC0969-89-24 06:33:0014[facility]annCHEM QLWHJ4549-03-02 06:33:007.8[facility]annCHEM LNSXD1476-07-49 06:33:001.2[facility]annCHEM SJLMB2116-33-78 06:33:003.0 [facility]CHE[facility] QDPWI3598-74-58 06:33:0087[facility]annCHEM PANEL 2015-03-28 06:33:25960Fbprbewu HermannCHEM DJOXC5097-30-12 06:33:000.3[facility]annCHEM GENLF9580-92-79 06:33:0026[facility]annCHE[facility] EPSOE6128-66-18 06:33:008[facility]annCHEM YHMFC4824-52-94 06:33:003.6[facility]annCHEM FBSZH0283-86-89 06:33:008.9[facility]annCHE[facility] IYYKJ1426-49-11 06:33:006.6 [facility] XPNBY6964-29-90 06:33:71539Moszixhq HermannCHEM PANEL 2015-03-28 06:33:0028[facility]annCHEM OHYKR8853-07-11 06:33:000.88[facility]annCHEM COTCX1212-65-33 06:33:28611Hbxvosag HermannCHEM QCBCX0950-99-42 06:33:003.8[facility]annCHEM JJFNL0262-35-12 06:33:0012[facility]annCHEM WYMNW1633-96-15 06:33:05544Lcjqudhv CbvhdpwANKRKOWCCM4274-44-05 06:33:0050.4 [facility] HkuagabUXYHYLCCMX6476-53-38 06:33:007.0[facility] HermannHEMATOLOGY 2015-03-28 06:33:003.9[facility] BkpexptWDSXLBREHK2497-87-40 06:33:007.9[facility] ZwwzzhbNOGBOKPVVR8291-70-03 06:33:0033.8[facility] CeschttBERLTMIYUU1382-19-97 06:33:000.9[facility] QavikshCKIFFVUPXU6232-53-83 06:33:000.5[facility] Jah RZENLWRVJR0795-89-93 06:33:000.6[facility] OlsfpwcELFPHSPSGG5713-75-64 06:33:000.1 [facility] DtnjkfnHTEFPTHWVF1945-50-11 06:33:002.6[facility]annHEMATOLOGY 2015-03-28 06:33:0013.3[facility] VdlzpoxYRNENBUQTN6422-62-43 06:33:004.70[facility] QguuypgJGFPZGTKMI2287-67-41 06:33:007.7[facility] XiswcytTQBKFOGAUX4740-01-24 06:33:0013.0[facility] TerwyziHUIEALDZOI0733-83-02 06:33:0032.5[facility] JSZVKYQDXQ5231-13-45 06:33:0040.9[facility] HzyykvmRXFCGSJNWD9679-70-41 06:33:00 Test Item Value Reference Range Interpretation Comments MCH (test code = MCH) 28.3 pg 27.0-31.0 [facility] TibzebgBDGIXWZSWA7691-86-05 06:33:0087.0[facility]annHEMATOLOGY 2015-03-28 06:33:008.2[facility] OtrafdiNNRQWTGLPW6956-80-45 06:33:79588Eyuxmbuj HermannCHEM ZUDRI0233-72-07 06:33:06096Djoncdvj [facility]annCHEM EUZTB5298-59-72 06:33:0014[facility]annCHEM CKRCN3256-64-23 06:33:007.8[facility]annCHEM PVEWD6524-63-83 06:33:001.2[facility]annCHEM FAGIL8952-03-52 06:33:003.0 [facility]CHE[facility] ZFJMZ0643-86-27 06:33:0087[facility]annCHEM PANEL 2015-03-28 06:33:34026Clhhhqpe HermannCHEM FSLBM4688-22-65 06:33:000.3[facility]annCHEM BHJMU1145-34-56 06:33:0026[facility]annCHE[facility] YMDIR9864-55-00 06:33:008[facility]annCHEM RDLQW3980-69-33 06:33:003.6[facility]annCHE[facility] XALZC8460-15-10 06:33:008.9[facility]annCHEM BKLGW7138-96-42 06:33:006.6 [facility]annCHE[facility] VWVLI7604-56-66 06:33:76474Viyzkprl HermannCHEM PANEL 2015-03-28 06:33:0028[facility]annCHEM VNSWK4165-20-31 06:33:000.88[facility]annCHEM CICDO3753-16-04 06:33:39501Khnneakz HermannCHEM PFZJC5578-34-99 06:33:003.8[facility]annCHEM SEMYB3816-86-81 06:33:0012[facility]annCHEM RQIBH3743-65-50 06:33:71410Kmbxnhwy NndgmufFQOVDAFQMA2622-78-44 06:33:0050.4 [facility] IfcorpeZXGMJXMBIC7977-57-58 06:33:007.0[facility]annHEMATOLOGY 2015-03-28 06:33:003.9[facility] GimufutBDQTGOHCXZ9356-99-43 06:33:007.9[facility] YnmkczcVJUFAMUSXV7741-00-05 06:33:0033.8[facility] UccyurxZGNSNKFXKH7456-74-15 06:33:000.9[facility] EgppvimUTDIPIHFLQ5733-25-46 06:33:000.5[facility] Jah KELPOYUYYU7061-75-26 06:33:000.6[facility] DoqbmmcXOMZSINXRI6737-87-35 06:33:000.1 [facility] EfmobaaBMNYBTQSLJ6515-15-08 06:33:002.6[facility] HermannHEMATOLOGY 2015-03-28 06:33:0013.3[facility] FydldxcHOXTYSYQCM8788-02-94 06:33:004.70[facility] PcguhkuKQDYINHXQU7995-58-58 06:33:007.7[facility] XwoqpseDOCLAIZHVB4244-50-62 06:33:0013.0[facility] PrlkzwmQVBPJFZVOS4598-58-80 06:33:0032.5[facility] QCIETCAGHJ6349-74-53 06:33:0040.9[facility] ImreamnONYHKVUOES9565-82-54 06:33:00 Test Item Value Reference Range Interpretation Comments MCH (test code = MCH) 28.3 pg 27.0-31.0 [facility] LvmcwkzWOJXVDVOSB8633-21-90 06:33:0087.0[facility]annHEMATOLOGY 2015-03-28 06:33:008.2[facility] HlvribfDWNPFTLTNR4109-51-75 06:33:54958Hthtlsoc Jah
[2021-08-06 02:48] LABS: Absolute Lymphocytes (CBC) 1.9 K/uL (0.7-4.9); Hematocrit 39.3 % (36.0-45.0); Lymphocytes % 18.4 % (15.3-44.8); MPV 7.1 fL (7.6-11.3); RBC Red Blood Cell Count 4.73 M/uL (3.86-4.86)
[2021-08-06 03:06] LABS: Albumin 3.8 g/dL (3.4-5.0); Bilirubin Total 0.3 mg/dL (0.2-1.0); Potassium 3.6 mmol/L (3.5-5.1)
[2021-08-06] MEDS ORDERED: ACETAMINOPHEN 325 MG TABLET ONE (05:24)
--- NOTE | 2021-08-06 07:15 | RAD REPORT ---
EXAM DESCRIPTION: CT - Head angio - 08/06/2021 6:38 am CLINICAL HISTORY: VERTIGO/DIZZINESS COMPARISON: Ct Stroke Brain Wo Cont dated 08/06/2021; Head Brain Wo Cont dated 08/02/2021 TECHNIQUE: CT angiography of the head was performed with MIPs. All CT scans are performed using dose optimization technique as appropriate and may include automated exposure control or mA/KV adjustment according to patient size. FINDINGS: Anterior circulation: No aneurysm or large vessel occlusion. No hemodynamically significant stenosis. No arteriovenous malf ormation identified. Calcified and noncalcified plaque involving the intracranial ICAs. Posterior circulation: No aneurysm or large vessel occlusion. Moderate to high-grade focal stenosis of the left P2 segment o f the posterior cerebral artery. No arteriovenous malformation identified. IMPRESSION: Moderate to high-grade focal stenosis of the left P2 segment of the posterior cerebral a rtery. No large vessel occlusion, however. No aneurysm.
--- NOTE | 2021-08-06 07:49 | EDPHYS ---
Physician Documentation [facility] Name: Martha Patel Age: 61 yrs Sex: Female : 1960 Arrival Date: 08/06/2021 Time: 02:12 Bed 20 Private MD: ED Physician Dex Lamar HPI: 08/06 03:53 This 61 yrs old Black Female presents to ER via Ambulatory with complaints of S/S of kdr Possible Stroke. 03:53 The patient's problem is reported as a facial droop, on left. 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 Early on when kdr she became blind in that eye, she had surgery on the muscular support surrounding the eye. The purpose was to help the eye tract better with her right eye and provide more support. According to the patient this operation was largely successful and although the that conjugate gaze is not perfect it is generally appropriate. Today the patient presented with facial droop on the left and her left eye not tracking appropriately the reports no other focal deficit. She went to bed between 9 and 10 PM. She woke around midnight and felt that she may have had some deficits then went back to sleep and then did not get up again until approximately 230 or 3 AM.. Given that the onset is unknown but may have been between 9 and 10 PM and that she awoke around 230 and 3 AM, patient is out of the window for thrombolytic therapy. Historical: - Home Meds: 04:08 Aspirin Oral [Active]; kd3 - Immunization history:: Adult Immunizations up to date, Client reports receiving the 2nd dose of the Covid vaccine. - Social history:: Smoking status: unknown. ROS: 03:54 Constitutional: Negative for fever, chills, and weight loss, Neck: Negative for injury, kdr pain, and swelling, Cardiovascular: Negative for chest pain, palpitations, and edema, Respiratory: Negative for shortness of breath, cough, wheezing, and pleuritic chest pain, Abdomen/GI: Negative for abdominal pain, nausea, vomiting, diarrhea, and constipation, Back: Negative for injury and pain, MS/Extremity: Negative for injury and deformity, Skin: Negative for injury, rash, and discoloration, Psych: Negative for depression, anxiety, suicide ideation, homicidal ideation, and hallucinations, Allergy/Immunology: Negative for hives, rash, and allergies, Endocrine: Negative for neck swelling, polydipsia, polyuria, polyphagia, and marked weight changes, Hematologic/Lymphatic: Negative for swollen nodes, abnormal bleeding, and unusual bruising. 03:54 Neuro: Positive for visual changes, weakness, Patient initially presented with a left facial droop however by the time of the initial evaluation in the room after the CAT scan, the at rest facial droop was improving and barely noticeable on my exam. Exam: 04:13 ECG was reviewed by the Attending Physician. kdr 08:00 Constitutional: This is a well developed, well nourished patient who is awake, alert, ms3 and in no acute distress. Chest/axilla: Normal chest wall appearance and motion. Nontender with no deformity. Cardiovascular: Regular rate and rhythm with a normal S1 and S2. No gallops, murmurs, or rubs. Normal PMI, no JVD. No pulse deficits. Respiratory: Lungs have equal breath sounds bilaterally, clear to auscultation and percussion. No rales, rhonchi or wheezes noted. No increased work of breathing, no retractions or nasal flaring. Abdomen/GI: Soft, non-tender, with normal bowel sounds. No distension or tympany. No guarding or rebound. No evidence of tenderness throughout. Skin: Warm, dry with normal turgor. Normal color with no rashes, no lesions, and no evidence of cellulitis. MS/ Extremity: Pulses equal, no cyanosis. Neurovascular intact. Full, normal range of motion. 08:00 Head/face: Noted is Right facial droop. 08:00 Neuro: Orientation: is normal, Mentation: is normal, Memory: is normal, Cerebellar function: Left hand abnormal finger to nose, Motor: is normal, Sensation: is normal, Abnormal movements: there are no abnormal movements. 08:03 Radiologist reports: CTA shows moderate to high-grade focal stenosis of the left P2 ms3 segment of the posterior cerebral artery. No large vessel occlusion. Vital Signs: 02:50 BP 134 / 76; Pulse 102; Resp 13; Pulse Ox 97% ; Weight 214 kg; Height 5 ft. 5 in. kd3 (165.10 cm); Pain 0/10; 03:24 BP 171 / 101; Pulse 99; Resp 16; Pulse Ox 96% on R/A; ll3 03:30 BP 157 / 101; Pulse 99; Resp 10; Pulse Ox 96% ; ag7 04:15 BP 168 / 79; Pulse 94; Resp 16; Pulse Ox 98% on R/A; Pain 9/10; ag7 05:00 BP 173 / 98 RA Supine (auto/pedi); Pulse 97 MON; Resp 12 S; Pulse Ox 96% on R/A; Pain ag7 8/10; 06:01 BP 168 / 97; Pulse 99; Resp 11; Pulse Ox 98% on R/A; Pain 5/10; ag7 06:04 Pain 5/10; ag7 07:10 BP 170 / 98; Pulse 100; Resp 18; Pulse Ox 100% ; Pain 0/10; jh6 08:20 BP 171 / 96; Pulse 90; Resp 18; Temp 97.8; Pulse Ox 100% on R/A; Pain 0/10; jh6 10:00 BP 166 / 100; Pulse 96; Resp 18; Pulse Ox 100% ; Pain 0/10; jh6 02:50 Body Mass Index 78.51 (214.00 kg, 165.10 cm) kd3 NIH Stroke Scale Scores: 04:14 NIHSS Score: 3 kd3 MDM: 07:00 Differential diagnosis: CVA, TIA, metabolic disorder. Transition of care: Care assumed ms3 from Carlos Manuel Meng MD. 07:48 Patient medically screened. ms3 07:49 ED course: CTA shows moderate to high grade focal stenosis of the left P2 segment of ms3 the posterior cerebral artery. No large vessel occlusion. No aneurysm. Patient with right sided facial droop on exam.. 07:50 Data reviewed: vital signs, nurses notes, lab test result(s), radiologic studies. Data ms3 interpreted: Pulse oximetry: on room air is 98 %. Interpretation: normal. 08:00 ED course: 61 yo female with PMH of DM, HTN, BR CA- off chemo x 6 months, presents for ms3 facial droop, disconjugate gaze and difficulty walking. Are off going emergency physician patient symptoms persistent, but improved upon arrival to the emergency department. Patient with known left eye blindness.. 08:27 ED course: Discussed case with Dr Louise at [facility] and he will consult on ms3 patient. All questions answered.. 08:36 ED course: Discussed case with Dr Moreno and he accepts patient to the [facility]. All questions answered. patient understands/ agrees with plan. All questions answered.. 08/06 02:18 Order name: Blood Culture Adult (2) kdr 08/06 02:18 Order name: CBC with Diff; Complete Time: 04:38 kdr 08/06 02:18 Order name: CMP; Complete Time: 04:38 kdr 08/06 02:17 Order name: CT Head Brain wo Cont vc1 08/06 02:24 Order name: Ct Stroke Brain Wo Cont EDMS 08/06 02:48 Order name: Glucose, Ancillary Testing; Complete Time: 05:36 EDMS 08/06 06:20 Order name: Head angio EDMS 08/06 08:00 Order name: COVID-19 SARS RT PCR (Document "Date of Onset" if Symptomatic) ms3 08/06 02:18 Order name: Accucheck; Complete Time: 02:47 kdr 08/06 02:18 Order name: Cardiac monitoring; Complete Time: 03:24 kdr 08/06 02:18 Order name: EKG - Nurse/Tech; Complete Time: 03:24 kdr 08/06 02:18 Order name: IV Saline Lock - Large Bore; Complete Time: 02:47 kdr 08/06 02:18 Order name: Labs collected and sent; Complete Time: 02:47 kdr 08/06 02:18 Order name: O2 Per Protocol; Complete Time: 03:19 kdr 08/06 02:18 Order name: O2 Sat Monitoring; Complete Time: 03:19 kdr 08/06 07:08 Order name: EKG Electrocardiogram EDSC EC:13 Rate is 105 beats/min. Rhythm is regular, Sinus tachycardia with No ectopy. QRS [place] is kdr Normal. MN interval is normal. QRS interval is normal. QT interval is normal. Clinical impression: Sinus tachycardia. Administered Medications: 05:26 Drug: Tylenol 650 mg Route: PO; ag7 06:04 Follow up: Pain 5/10 Adult; Response: No adverse reaction ag7 08:50 Drug: Aspirin 81 mg Route: PO; jh6 Point of Care Testing: Blood Glucose: 02:32 Blood Glucose: 142 mg/dL; kd3 Ranges: Critical Glucose Levels:Adult <50 mg/dl or >400 mg/dl <40 mg/dl or >180 mg/dl Disposition Summary: 08/06/21 07:48 Transfer Ordered Reason: Higher level of care ms3 Condition: Stable ms3 Problem: new ms3 Symptoms: have improved ms3 Transfer Location: Other Acute Care Facility(08/06/21 08:37) ms3 Accepting Physician: Dr Moreno(08/06/21 10:16) jh6 Diagnosis - Ataxia, unspecified ms3 - Facial droop ms3 - Posterior circulation CVA ms3 Forms: - Medication Reconciliation Form ms3 - SBAR form ms3 NIH Stroke Scale - NIH Stroke Score Date: 08/06/2021 Time: 04:14 Total Score = 3 1a. Level of Consciousness (LOC) - 0(Alert) 1b. Level of Consciousness (LOC) (Month \\T\\ Age) - 0(Both) 1c. LOC Commands (Open \\T\\ Closes Eyes/Showroom Salesperson) - 0(Both) 2. Best Gaze (Lateral Gaze Paresis) - 1(Partial gaze palsy) 3. Visual Field Loss - 1(Partial hemianopia) 4. Facial Palsy - 1(Minor Paralysis) 5a. Left Arm: Motor (10-second hold) - 0(No drift) 5b. Right Arm: Motor (10-second hold) - 0(No drift) 6a. Left Leg: Motor (5-second hold - always test supine) - 0(No drift) 6b. Right Leg: Motor (5-second hold - always test supine) - 0(No drift) 7. Limb Ataxia (finger/nose \\T\\ heel/adams - test with eyes open) - 0(Absent) 8. Sensory Loss (pinprick arms/legs/face) - 0(Normal) 9. Best Language: Aphasia (description/naming/reading) - 0(No aphasia) 10. Dysarthria (speech clarity - read or repeat words) - 0(Normal) 11. Extinction and Inattention (visual/tactile/auditory/spatial/personal) - 0(No abnormality) Initials: kd3 Signatures: Dispatcher [employer] EDMS Carlos Manuel Meng MD MD [facility] Dajuan Crenshaw, DIRECTOR OF DIGITAL MARKETING-C DIRECTOR OF DIGITAL MARKETING-Cla1 Dex Lamar, DO ms3 Rosamaria Figueroa RN RN kd3 Tamie Wolf RN RN jh6 Maria Teresa Lowery RN RN ag7 Corrections: (The following items were deleted from the chart) 02:24 02:21 Head Brain Wo Cont ordered. EDMS EDMS 04:09 04:08 PMHx: Cancer, Breast; kd3 kd3 04:09 04:08 PMHx: Hypertension; kd3 kd3 04:09 04:08 PMHx: Diabetes - NIDDM; kd3 kd3 08:37 07:48 [facility] ms3 ms3 08:37 07:48 [facility] ms3 ms3 10:16 08:37 Dr Moreno ms3 jh6
--- NOTE | 2021-08-06 07:49 | ER ---
Nurse's Notes [facility] Name: Martha Patel Age: 61 yrs Sex: Female : 1960 Arrival Date: 08/06/2021 Time: 02:12 Bed 20 Private MD: Diagnosis: Ataxia, unspecified;Facial droop;Posterior circulation CVA Presentation: 08/06 02:17 Pre-hospital glucose is not applicable to this patient. Initial Sepsis Screen: Does the kd3 patient meet any 2 criteria? No. Patient's initial sepsis screen is negative. Does the patient have a suspected source of infection? No. Patient's initial sepsis screen is negative. Risk Assessment: Do you want to hurt yourself or someone else? Patient reports no desire to harm self or others. Onset of symptoms was August 06, 2021. 02:17 Acuity: LISANDRO 3 kd3 02:50 Chief complaint: Patient states: PT states that she has been having dizziness and kd3 nausea with issues walking for several weeks. last night around 9, pt went to bed and woke up around 0150 with facial droop. Coronavirus screen: Vaccine status: Patient reports receiving the 2nd dose of the covid vaccine. Ebola Screen: No symptoms or risks identified at this time. An acute neurological deficit is present. The charge nurse has been notified. 02:50 Method Of Arrival: Ambulatory kd3 Triage Assessment: 04:12 The onset of the patients symptoms was August 05, 2021 at 21:00. General: Appears in no kd3 apparent distress. Behavior is calm, cooperative. Pain: Complains of pain in headache. Neuro: Reports blurred vision headache numbness in right arm. Stroke Activation: Physician: Stroke Attending; Name: ; Notified At: ; Arrived At: Physician: Chief Stroke Resident; Name: ; Notified At: ; Arrived At: Physician: Stroke Resident; Name: ; Notified At: ; Arrived At: Physician: ED Attending; Name: matthew; Notified At: 04:08; Arrived At: 02:17 Physician: ED Resident; Name: ; Notified At: ; Arrived At: Historical: - Home Meds: 04:08 Aspirin Oral [Active]; kd3 - Immunization history:: Adult Immunizations up to date, Client reports receiving the 2nd dose of the Covid vaccine. - Social history:: Smoking status: unknown. Screenin:14 Abuse screen: Denies threats or abuse. Denies injuries from another. Nutritional kd3 screening: No deficits noted. Tuberculosis screening: No symptoms or risk factors identified. Fall Risk IV access (20 points). Assessment: 04:14 VAN Scoring: Arm Drift: Patients demonstrates NO arm weakness. Patient is VAN Negative. kd3 T-PA (Activase) Screening: Contraindications: Other: pt ct negative for stroke. 04:19 Patient has been NPO before screening. The patient is alert, and able to follow kd3 commands. The patient does not exhibit slurred or garbled speech. The patient is not exhibiting difficulty speaking. The patient is exhibiting difficulty understanding words. The patient is able to swallow own secretions with no drooling or need for suction. Patient tolerated one teaspoon of water. No drooling, immediate coughing, gurgling, or clearing of the throat was noted. The patient tolerated 90mL of water. No drooling, immediate coughing, gurgling, or clearing of the throat was noted. The patient passed the bedside swallow screening. Oral medications may be given as ordered. Contact Physician for further diet orders. Provider notified of bedside swallow screening results: Carlos Manuel Meng MD. 05:05 Reassessment: Patient and/or family updated on plan of care and expected duration. Pain ag7 level reassessed. Patient is alert, oriented x 3, equal unlabored respirations, skin warm/dry/pink. Patient denies pain at this time. 06:04 Reassessment: Patient and/or family updated on plan of care and expected duration. Pain ag7 level reassessed. Patient states feeling better. Patient states symptoms have improved. 07:10 Reassessment: Patient and/or family updated on plan of care and expected duration. Pain jh6 level reassessed. Patient is alert, oriented x 3, equal unlabored respirations, skin warm/dry/pink. pt alert able to speak with slight slur and is able to understand words and pictures shown. l arm drift and l leg weakness noted on exam. 07:10 Neuro: Level of Consciousness is awake, alert, obeys commands, Oriented to person, jh6 place, time, situation, Welding Machine Operator/Tender are weak on left Moves all extremities. Gait is unsteady, ataxic, Facial droop on left. 08:22 Reassessment: Patient and/or family updated on plan of care and expected duration. Pain jh6 level reassessed. pt able to stand and pivot to bedside commode slight weakness to l leg and arm noted. able to also stand from commode with little assistance. spouse at bedside. 10:00 Reassessment: Patient is alert, oriented x 3, equal unlabored respirations, skin jh6 warm/dry/pink. pt able to ambulate with little assistance to EMS stretcher. pt does not c/o of headache or dizziness. Vital Signs: 02:50 BP 134 / 76; Pulse 102; Resp 13; Pulse Ox 97% ; Weight 214 kg; Height 5 ft. 5 in. kd3 (165.10 cm); Pain 0/10; 03:24 BP 171 / 101; Pulse 99; Resp 16; Pulse Ox 96% on R/A; ll3 03:30 BP 157 / 101; Pulse 99; Resp 10; Pulse Ox 96% ; ag7 04:15 BP 168 / 79; Pulse 94; Resp 16; Pulse Ox 98% on R/A; Pain 9/10; ag7 05:00 BP 173 / 98 RA Supine (auto/pedi); Pulse 97 MON; Resp 12 S; Pulse Ox 96% on R/A; Pain ag7 8/10; 06:01 BP 168 / 97; Pulse 99; Resp 11; Pulse Ox 98% on R/A; Pain 5/10; ag7 06:04 Pain 5/10; ag7 07:10 BP 170 / 98; Pulse 100; Resp 18; Pulse Ox 100% ; Pain 0/10; jh6 08:20 BP 171 / 96; Pulse 90; Resp 18; Temp 97.8; Pulse Ox 100% on R/A; Pain 0/10; jh6 10:00 BP 166 / 100; Pulse 96; Resp 18; Pulse Ox 100% ; Pain 0/10; jh6 02:50 Body Mass Index 78.51 (214.00 kg, 165.10 cm) kd3 Vitals: 07:10 Cardiac Rhythm Assessment Regular Sinus rhythm. jh6 NIH Stroke Scale Scores: 04:14 NIHSS Score: 3 kd3 ED Course: 02:12 Patient arrived in ED. kz 02:18 Carlos Manuel Meng MD is Attending Physician. kdr 02:26 Rosamaria Figueroa, RN is Primary Nurse. kd3 02:28 Ct Stroke Brain Wo Cont In Process Unspecified. EDMS 04:08 Triage completed. kd3 04:14 Arm band placed on right wrist. kd3 04:15 Patient has correct armband on for positive identification. Call light in reach. Side kd3 rails up X 1. 04:15 Inserted saline lock: 20 gauge in right antecubital area, using aseptic technique. kd3 05:06 No provider procedures requiring assistance completed. ag7 06:40 Head angio In Process Unspecified. EDMS 07:27 Attending Physician role handed off by Carlos Manuel Meng MD ms3 07:27 Dex Lamar DO is Attending Physician. ms3 07:57 Transfer to [facility] initiated. em1 08:36 Doc to doc report between Dr Moreno and Dr Lamar conducted. em1 09:05 Administrative acceptance given by Aminata Wilhelm RN, TC. em1 Administered Medications: 05:26 Drug: Tylenol 650 mg Route: PO; ag7 06:04 Follow up: Pain 5/10 Adult; Response: No adverse reaction ag7 08:50 Drug: Aspirin 81 mg Route: PO; [facility] Point of Care Testing: Blood Glucose: 02:32 Blood Glucose: 142 mg/dL; kd3 Ranges: Outcome: 07:48 ER care complete, transfer ordered by . ms3 10:13 Transferred by ground EMS to [facility]. 6 10:13 Condition: stable 10:13 Instructed on the need for transfer. 10:16 Patient left the ED. [facility] NIH Stroke Scale - NIH Stroke Score Date: 08/06/2021 Time: 04:14 Total Score = 3 1a. Level of Consciousness (LOC) - 0(Alert) 1b. Level of Consciousness (LOC) (Month \T\ Age) - 0(Both) 1c. LOC Commands (Open \T\ Closes Eyes/Digital Field Service Technician) - 0(Both) 2. Best Gaze (Lateral Gaze Paresis) - 1(Partial gaze palsy) 3. Visual Field Loss - 1(Partial hemianopia) 4. Facial Palsy - 1(Minor Paralysis) 5a. Left Arm: Motor (10-second hold) - 0(No drift) 5b. Right Arm: Motor (10-second hold) - 0(No drift) 6a. Left Leg: Motor (5-second hold - always test supine) - 0(No drift) 6b. Right Leg: Motor (5-second hold - always test supine) - 0(No drift) 7. Limb Ataxia (finger/nose \T\ heel/adams - test with eyes open) - 0(Absent) 8. Sensory Loss (pinprick arms/legs/face) - 0(Normal) 9. Best Language: Aphasia (description/naming/reading) - 0(No aphasia) 10. Dysarthria (speech clarity - read or repeat words) - 0(Normal) 11. Extinction and Inattention (visual/tactile/auditory/spatial/personal) - 0(No abnormality) Initials: kd3 Signatures: Dispatcher [employer] EDMS Carlos Manuel Meng MD MD kdr Martinez, Eric em1 Dex Lamar DO DO ms3 Valdo Kincaid RN RN ll3 Rosamaria Figueroa RN RN kd3 Tamie Wolf RN RN 6 Denice Kemp Angela RN RN ag7 Corrections: (The following items were deleted from the chart) 04:09 04:08 PMHx: Cancer, Breast; kd3 kd3 04:09 04:08 PMHx: Hypertension; kd3 kd3 04:09 04:08 PMHx: Diabetes - NIDDM; kd3 kd3 04:14 04:13 Blood Glucose: Blood Glucose Ppxngcv=022 mg/dL. kd3 kd3 09:48 09:05 Doc to doc report between Dr Moreno and Dr Lamar conducted em1 em1
--- NOTE | 2021-08-06 10:40 | RAD REPORT ---
EXAM DESCRIPTION: CT - Ct Stroke Brain Wo Cont - 08/06/2021 6:52 am CLINICAL HISTORY: 61 years Female Facial droop, slurred speech TECHNIQUE: Multiple axial CT images of the brain were performed followed by sagittal and coronal rec onstructed images. The CT study is performed according to ALARA (as low as reasonably achievable) or ALARA/IMAGE GENTLY, with automatic adjustment of mA and/or kV according to patient size. Performed on: 08/06/2021 at 2:23 AM COMPARISON: 08/02/2021. FINDINGS: Brain: There is no evidence of mass, acute mass effect or midline shift. There are no acut e extra-axial fluid collections. There is no evidence of acute intracranial hemorrhage. The cerebra l sulci and ventricles are normal in size and configuration. There are no focal abnormal areas of inc reased or decreased attenuation. There is no evidence of hyperdense MCA. Paranasal Sinuses and Mastoids: There is no significant mucosal thickening of the paranasal sinuses. The mastoid air cells are clear. Orbits: The orbital contents are grossly unremarkable. Bones: No acute osseous abnormalities are identified. Soft Tissues: No focal soft tissue abnormalities are identified. IMPRESSION: There is no evidence of acute intracranial pathology. No significant change when compare d to the prior study. These critical findings were discussed with Dr. Meng on 08/06/2021 at 2:43 AM central time. Electronically signed by: Ninfa Kelley DO 08/06/2021 2:45 AM CDT Due to temporary technical issues with the PACS/Fluency reporting system, reports are being signed by the in house radiologist without review as a courtesy to ensure prompt reporting. The interpreting r adiologist is fully responsible for the content of the report.
[2021-08-06 14:05] VITALS: O2SAT 100
[2021-08-06 14:07] VITALS: TEMP 97.8
[2021-08-06 14:08] VITALS: BP 166/100
== END 2021-08-06 10:16 ==
LOC: ER 02:08
DX: I63.432 Cerebral infarction due to embolism of left posterior cerebral artery (principal); R29.703 NIHSS score 3; R27.0 Ataxia, unspecified; Z79.82 Long term (current) use of aspirin; Z20.822 Contact with and (suspected) exposure to COVID-19
CPT/HCPCS: 93005; 87040 ×2; 85025; 36415; 82947; 80053; 70496; 70450; 99285; U0003; Q9967

== ENCOUNTER 2021-08-10 15:42 | Emergency (ER) | payer OTHER ==
--- OUTSIDE RECORDS SUMMARY | 2021-08-10 15:50 | XMS REPORT | Continuity of Care Document ---
:1960 Author Organization [facility] t Address [address] [place] [address] Care Team Providers Name Role Phone TANYA GEORGES Primary Care Physician Unavailable Desmond Georges Attending Clinician Unavailable Arash Attending Clinician Unavailable GRISELDA BALDERAS Attending Clinician Unavailable TORI ZHENG Attending Clinician Unavailable TATY Attending Clinician Unavailable SIN WANG Attending Clinician Unavailable GRISELDA BALDERAS Attending Clinician Unavailable Griselda Balderas MD Attending Clinician Cheri CAMPBELL Attending Clinician Sancho CAMPBELL Attending Clinician SHAY Attending Clinician Unavailable JANET Attending Clinician Unavailable HUGO Attending Clinician Unavailable GRISELDA BALDERAS Admitting Clinician Unavailable TATY Admitting Clinician Unavailable Payers Payer Name Policy Type Policy Number Effective Date Expiration Date Leonard munguia [employer] MEDICARE [id number] 2021 00:00:00 [employer] DUAL [id number] COMPLETE SNP [facility] MEDICARE PART A [id number] \\T\\ B - MEDICARE [facility] [id number] [facility] MEDIC[facility] A B [id number] 2020 00:00:00 Problems Condition Condition Condition Status Onset Resolution Last Treating Co mments Source Name Details Category Date Date Treatment Clinician Date High risk High risk Disease Active [facility] medication medication 11-26 Co llege use use 00:00: of 00 Medicin e Chemothera Chemothera Disease Active [facility] py py 05 [facility] follow-up follow-up 00:00: of examinatio examinatio 00 Me dicin n n e Pre-operat Pre-operat Disease Active [facility] chris chris 05 [facility] cardiovasc cardiovasc 00:00: of ular ular 00 Medicin examinatio examinatio e n n History of History of Disease Active [facility] CVA CVA 11-26 [facility] (cerebrova (cerebrova 00:00: of scular scular 00 Medicin accident) accident) e Anxiety Anxiety Disease Active [facility] 6 College 00:00: of 00 Medicin e Abnormal Abnormal Disease Active [facility] mammogram mammogram 09-25 [facility] 00:00: of 00 Medicin e Breast Breast Disease Active [facility] pain, left pain, left 09-25 Co llege 00:00: of 00 Medicin e Hyperglyce Hyperglyce Disease Active [facility] steele 09-25 [facility] 00:00: of 00 Medicin e Stroke, Stroke, Disease Active [facility] acute, acute, 09-25 [facility] thrombotic thrombotic 00:00: of (HCCode) (HCCode) 00 Medici n e Uncontroll Uncontroll Disease Active [facility] ed type 2 ed type 2 09-25 [facility] diabetes diabetes 00:00: of mellitus mellitus 00 Medici n with with e hyperglyce hyperglyce ivette ivette (HCCode) (HCCode) Breast Breast Disease Active [facility] pain, left pain, left 09-25 Co llege 00:00: of 00 Medicin e Glaucoma Glaucoma Disease Active [facility] r 604 [facility] 00:00: of 00 Medicin e History of History of Disease Active [facility] malignant malignant 09-25 [facility] neoplasm neoplasm 00:00: of of breast of breast 00 Medi abraham e Hypertensi Hypertensi Disease Active [facility] on 09-25 College 00:00: of 00 Medicin e Obesity Obesity Disease Active [facility] (BMI (BMI 09-25 College 30-39.9) 30-39.9) 00:00: of 00 Medicin e Nodule of Nodule of Disease Active [place] [facility] finger of finger of 09-25 [facility] both hands both hands 00:00: of 00 Medicin e CHEMOTHERA Diagnosis Active 2020-01-20 [facility] PY 01-09 12:08:00 l COMPLETED 00:00: Jah CHEMOTHERA 00 PY COMPLETED [facility] Breast Disease Active [facility] cancer cancer 06-30 [facility] (HCCode) (HCCode) 00:00: of 00 Medicin e BREAST Diagnosis Active 2019-07-09 [facility] CANCER 06-30 14:53:00 l BREAST 00:00: [place] CANCER 00 Active 07/01/2019 [facility] Jah SCIATICA Diagnosis Active 2016-042017-02-14 M emoria TYPE PAIN 0-24 14:00:00 l SCIATICA 00:00: John n TYPE PAIN 00 Active 02/14/2017 [facility] BOILS Diagnosis Active 2016-09-07 Mem oria 5-16 00:23:00 l BOILS 00:00: Jah 00 Active 09/06/2016 [facility] [place] ABDOMINAL Diagnosis Active 2014-042015-05-05 [facility] PAIN 2-04 10:43:00 l 00:00: Jah ABDOMINAL 00 PAIN Active 03/27/2015 [facility] COPD COPD Disease Active 2012-04 [facility] (chronic (chronic 05-12 Colleg e obstructiv obstructiv 00:00: of e e 00 Medicin pulmonary pulmonary e disease) disease) (HCCode) (HCCode) COPD Diagnosis Active 2012-042013-03-15 [facility] - 08:29:00 l COPD 00:00: Jah 00 Active 03/12/2013 [facility] Cyst of Problem Resolve 2017-02-17 [facility] ovary d 03:03:15 l (disorder) Cyst of Her nix ovary (disorder) Resolved Problem 02/17/2017 [facility], [facility] History of Past Illness Condition Condition Condition Status Onset Resolution Last Treating Co mments Source Name Details Category Date Date Treatment Clinician Date Low back Problem 2016-2017-02-17 2017-02-17 [facility] pain 0-24 03:03:15 03:03:15 l Low back 05:00: John n pain 00 02/14/2017 02/17/2017 [place] [facility] in Problem 2016-2017-02-17 2017-02-17 [facility] left hip 0-24 03:03:15 03:03:15 l Pain in 05:00: Jah left hip 00 02/17/2017 [facility] Sciatica, Problem 2016-2017-02-17 2017-02-17 [facility] unspecifie 0-24 03:03:15 03:03:15 l d side 05:00: [place] Sciatica, 00 unspecifie d side 02/14/2017 02/17/2017 [facility] Cutaneous Problem 2016-2016-09-10 2016-09-10 [facility] abscess, 17 03:38:26 03:38:26 l unspecifie 05:00: John n d Cutaneous 00 abscess, unspecifie d 09/07/2016 09/10/2016 [place] Discharge Problem 2014-042015-03-31 2015-03-31 [facility] Diagnosis: 2-05 02:33:03 02:33:03 l Morbid 06:00: [place] obesity Discharge 00 Diagnosis: Morbid obesity 03/28/2015 03/31/2015 [place] Discharge Problem 2014-042015-03-31 2015-03-31 [facility] Diagnosis: 2-05 02:33:03 02:33:03 l Pain, 06:00: [place] abdominal, Discharge 00 nonspecifi Diagnosis: c Pain, abdominal, nonspecifi c 03/28/2015 03/31/2015 [facility] Allergies, Adverse Reactions, Alerts Allergy Allergy Status Severity Reaction(s) Onset Inactive Treating Comm ents Source Name Type Date Date Clinician NO KNOWN Allergy Active [facility] Social History Social Habit Start Date Stop Date Quantity Comments Source History of Cigarette Smoker [facility] Rene ollege tobacco use of Medicine Exposure to Not sure [facility] Ken mera SARS-CoV-2 of Medicine (event) Alcohol intake 2021-07-02 2021-07-02 Ex-drinker [facility] Col lege 00:00:00 00:00:00 (finding) of Medicine Tobacco use and 2020-09-25 2020-09-25 Smokeless tobacco [facility] exposure 00:00:00 00:00:00 non-user of Medicine Social History 2015-03-28 2015-03-28 Zeferino blount 06:13:28 06:13:28 [birth year] [facility] Co llege 00:00:00 00:00:00 of Medicine Smoking Status Start Date Stop Date Source Smokes tobacco daily 2020-09-25 00:00:00 [facility] Medications Ordered Filled Start Stop Current Ordering Indication Dosage Frequency Signature Comments Components Source Medication Medication Date Date Medication? Clinician (SIG) Name Name Lancets Yes Maricel Constantino 3-11 [facility] (ACCU-CHEK 13:03: Lancet of FASTCLIX 17 Drum Medicin LANCET) KIT e gabapentin Yes gabapentin B aytimmy (NEURONTIN) 11 600 mg Colleg e 600 MG 13:03: tablet of tablet 17 Medicin e hydrocodone Yes hydrocodon [facility] -acetaminop 07-02 e 10 College hen (NORCO) 13:03: mg-acetami of 10-325 MG 17 nophen 325 Medi abraham per tablet mg tablet e Budesonide- Yes 1 puffs [place] [facility] Formoterol 07-02 College Fumarate 13:03: of 160-4.5 17 Medicin MCG/ACT e AERO enalapril Yes enalapril [place] [facility] (VASOTEC) 07-02 maleate 10 [facility] 10 MG 13:03: mg tablet of tablet 17 Medicin e metoprolol Yes metoprolol [facility] (LOPRESSOR) 11 tartrate [facility] 25 MG 13:03: 25 mg of tablet 17 tablet Medicin e ondansetron Yes ondansetro [facility] (ZOFRAN) 4 3-11 n HCl 4 mg Col lege MG tablet 13:03: tablet of 17 Medicin e Lancets Yes Maricel cohen MiscTiffany 9-03 [facility] (ACCU-CHEK 11:56: Lancet of FASTCLIX 36 Drum Medicin LANCET) KIT e gabapentin Yes gabapentin [facility] (NEURONTIN) 12-25 600 mg Colleg e 600 MG 11:56: tablet of tablet 36 Medicin e hydrocodone Yes hydrocodon [facility] -acetaminop 12-25 e 10 [facility]) 11:56: mg-acetami of 10-325 MG 36 nophen 325 Medi abraham per tablet mg tablet e Budesonide- Yes 1 puffs [place] [facility] Formoterol 12-25 [facility] Fumarate 11:56: of (SYMBICORT) 36 Medicin 160-4.5 e MCG/ACT AERO enalapril Yes enalapril [place] [facility] (VASOTEC) 12-25 maleate 10 [facility] 10 MG 11:56: mg tablet of tablet 36 Medicin e metoprolol Yes metoprolol [facility] (LOPRESSOR) 12-25 tartrate [facility] 25 MG 11:56: 25 mg of tablet 36 tablet Medicin e ondansetron Yes ondansetro [facility] (ZOFRAN) 4 12-25 n HCl 4 mg Col lege MG tablet 11:56: tablet of 36 Medicin e Lancets Yes Accu-Chek [place] Misc. 12-25 Fastclix [facility] (ACCU-CHEK 11:56: Lancet of FASTCLIX 36 Drum Medicin LANCET) KIT e gabapentin Yes gabapentin [facility] (NEURONTIN) 12-25 600 mg Colleg e 600 MG 11:56: tablet of tablet 36 Medicin e hydrocodone Yes hydrocodon [facility] -acetaminop 12-25 e 10 [facility] ([place]) 11:56: mg-acetami of 10-325 MG 36 nophen 325 Medi abraham per tablet mg tablet e Budesonide- Yes 1 puffs [place] [facility] Formoterol 12-25 [facility] Fumarate 11:56: of (SYMBICORT) 36 Medicin 160-4.5 e MCG/ACT AERO enalapril Yes enalapril [place] [facility] (VASOTEC) 12-25 maleate 10 [facility] 10 MG 11:56: mg tablet of tablet 36 Medicin e metoprolol Yes metoprolol [facility] (LOPRESSOR) 12-25 tartrate [facility] 25 MG 11:56: 25 mg of tablet 36 tablet Medicin e ondansetron Yes ondansetro [facility] (ZOFRAN) 4 9-03 n HCl 4 mg Col lege MG tablet 11:56: tablet of 36 Medicin e Lancets Yes Accu-Chek [place] Misc. 12-[facility] 11:56: Lancet of FASTCLIX 36 Drum Medicin LANCET) KIT e gabapentin Yes gabapentin [facility] (NEURONTIN) 12-25 600 mg Colleg e 600 MG 11:56: tablet of tablet 36 Medicin e hydrocodone Yes hydrocodon [facility] -acetaminop 12-25 e 10 [facility]) 11:56: mg-acetami of 10-325 MG 36 nophen 325 Medi abraham per tablet mg tablet e Budesonide- Yes 1 puffs [place] [facility] Formoterol 12-25 [facility] Fumarate 11:56: of (SYMBICORT) 36 Medicin 160-4.5 e MCG/ACT AERO enalapril Yes enalapril [place] [facility] (VASOTEC) 12-25 maleate 10 [facility] 10 MG 11:56: mg tablet of tablet 36 Medicin e metoprolol Yes metoprolol [facility] (LOPRESSOR) 12-25 tartrate [facility] 25 MG 11:56: 25 mg of tablet 36 tablet Medicin e ondansetron Yes ondansetro [facility] (ZOFRAN) 4 -03 n HCl 4 mg Col lege MG tablet 11:56: tablet of 36 Medicin e Lancets Yes Accu-Chek [place] Misc. 12-25 [facility] (ACCU-CHEK 11:56: Lancet of FASTCLIX 36 Drum Medicin LANCET) KIT e gabapentin Yes gabapentin [facility] (NEURONTIN) 12-25 600 mg Colleg e 600 MG 11:56: tablet of tablet 36 Medicin e hydrocodone Yes hydrocodon [facility] -acetaminop 12-25 e 10 [facility]) 11:56: mg-acetami of 10-325 MG 36 nophen 325 Medi abraham per tablet mg tablet e Budesonide- Yes 1 puffs [place] [facility] Formoterol 12-25 [facility] 11:56: of (SYMBICORT) 36 Medicin 160-4.5 e MCG/ACT AERO enalapril Yes enalapril [place] [facility] (VASOTEC) 12-25 maleate 10 [facility] 10 MG 11:56: mg tablet of tablet 36 Medicin e metoprolol Yes metoprolol [facility] (LOPRESSOR) 12-25 tartrate [facility] 25 MG 11:56: 25 mg of tablet 36 tablet Medicin e ondansetron Yes ondansetro [facility] (ZOFRAN) 4 12-25 n HCl 4 mg Col lege MG tablet 11:56: tablet of 36 Medicin e Lancets Yes Accu-Chek [place] Misc. 12-18 [facility] (ACCU-CHEK 13:19: Lancet of FASTCLIX 20 Drum Medicin LANCET) KIT e gabapentin Yes gabapentin [facility] (NEURONTIN) 12-18 600 mg Colleg e 600 MG 13:19: tablet of tablet 20 Medicin e hydrocodone Yes hydrocodon [facility] -acetaminop 12-18 e 10 [facility]) 13:19: mg-acetami of 10-325 MG 20 nophen 325 Medi abraham per tablet mg tablet e Budesonide- Yes 1 puffs [place] [facility] Formoterol 12-18 [facility] 13:19: of (SYMBICORT) 20 Medicin 160-4.5 e MCG/ACT AERO enalapril Yes enalapril [place] [facility] (VASOTEC) 12-18 maleate 10 [facility] e[facility] 10 MG 13:19: mg tablet of tablet 20 Medicin e metoprolol Yes metoprolol [facility] (LOPRESSOR) 12-18 tartrate [facility] 25 MG 13:19: 25 mg of tablet 20 tablet Medicin e ondansetron Yes ondansetro [facility] (ZOFRAN) 4 12-18 n HCl 4 [...] 6 Medicin hours as e needed. amlodipine 0 Yes [facility] ([facility]) 7-22 College 10 MG 00:00: of tablet 00 Medicin e losartan 2020-0 Yes [facility] (COZAAR) 50 7-22 College MG tablet 00:00: of 00 Medicin e metformin 2020-0 Yes [facility] (GLUCOPHAGE 7-22 [facility] ) 1000 MG 00:00: of tablet 00 Medicin e amlodipine 2020-0 Yes [facility] (NORVASC) 7-22 College 10 MG 00:00: of tablet 00 Medicin e losartan 2020-0 Yes [facility] (COZAAR) 50 7-22 College MG tablet 00:00: of 00 Medicin e metformin 2020-0 Yes [facility] (GLUCOPHAGE 7-22 [facility] ) 1000 MG 00:00: of tablet 00 Medicin [facility] 10 MG 00:00: of tablet 00 Medicin e losartan 2020-0 Yes [facility] (COZAAR) 50 7-22 College MG tablet 00:00: of 00 Medicin e metformin 2020-0 Yes [facility] (GLUCOPHAGE 22 College ) 1000 MG 00:00: of tablet 00 Medicin e amlodipine 2020-0 Yes [facility] (NORVASC) 7-22 College 10 MG 00:00: of tablet 00 Medicin e losartan 2020-0 Yes [facility] (COZAAR) 50 7-22 College MG tablet 00:00: of 00 Medicin e metformin 2020-0 Yes [facility] (GLUCOPHAGE 22 [facility] ) 1000 MG 00:00: of tablet 00 Medicin e amlodipine 2020-0 Yes [facility] (NORVASC) 7-22 College 10 MG 00:00: of tablet 00 Medicin e losartan 2020-0 Yes [facility] (COZAAR) 50 7-22 College MG tablet 00:00: of 00 Medicin e metformin 2020-0 Yes [facility] (GLUCOPHAGE 22 [place] ) 1000 MG 00:00: of tablet 00 Medicin e amlodipine 2020-0 Yes [facility] (NORVASC) 722 College 10 MG 00:00: of tablet 00 Medicin e losartan 2020-0 Yes [facility] (COZAAR) 50 7-22 College MG tablet 00:00: of 00 Medicin e metformin 0 Yes [facility] (GLUCOPHAGE 22 College ) 1000 MG 00:00: of tablet 00 Medicin e Lancets 2020-0 Yes Accu-Chek [place] Mis. 11-06 Fastclix [facility] (ACCU-CHEK 11:58: Lancet of FASTCLIX 26 Drum Medicin LANCET) KIT e gabapentin Yes gabapentin [facility] (NEURONTIN) 11-06 600 mg Colleg e 600 MG 11:58: tablet of tablet 26 Medicin e hydrocodone 0 Yes hydrocodon [facility] -acetaminop 16 e 10 College hen (NORCO) 11:58: mg-acetami of 10-325 MG 26 nophen 325 Medi abraham per tablet mg tablet e tramadol 0 Yes [facility] (ULTRAM) 50 5-25 College MG tablet 00:00: of 00 Medicin e tramadol 0 Yes [facility] (ULTRAM) 50 5-25 College MG tablet 00:00: of 00 Medicin e tramadol 2020-0 Yes [facility] (ULTRAM) 50 5-25 College MG tablet 00:00: of 00 Medicin e tramadol 2020-0 Yes [facility] (ULTRAM) 50 5-25 College MG tablet 00:00: of 00 Medicin e tramadol 2020-0 Yes [facility] (ULTRAM) 50 5-25 College MG tablet 00:00: of 00 Medicin e tramadol 2020-0 Yes [facility] (ULTRAM) 50 5-25 College MG tablet 00:00: of 00 Medicin e tramadol 2020-0 Yes [facility] (ULTRAM) 50 5-25 College MG tablet 00:00: of 00 Medicin e amlodipine 2020-0 Yes [facility] ([facility]) 5-08 College 10 MG 00:00: of tablet 00 Medicin e amlodipine 2020-0 Yes [facility] ([facility]) 5-08 College 10 MG 00:00: of tablet 00 Medicin e amlodipine 2020-0 Yes [facility] ([facility]) 5-08 College 10 MG 00:00: of tablet 00 Medicin e amlodipine 2020-0 Yes [facility] ([facility]) 5-08 College 10 MG 00:00: of tablet 00 Medicin e amlodipine 2020-0 Yes [facility] 10 MG 00:00: of tablet 00 Medicin e amlodipine 2020-0 Yes [facility] ([facility]) 5-08 College 10 MG 00:00: of tablet 00 Medicin e Glimepiride Glimepiride 2019-0 Yes Shel[facility] [address] [facility] breakfast [facility] 00 or the l first main Outpati meal of ent the day Clinics Januvia [...] anxiety l Outpati ent Clinics Atorvastati Atorvastati 2020-0 Yes Shelly [address] n [...] Outpati ent Clinics metformin 2020-0 Yes metformin [place] [facility] (GLUCOPHAGE 3-18 1,000 mg [facility] ) 1000 MG 00:00: tablet of tablet 00 Medicin e metformin 2020-0 Yes metformin [place] [facility] (GLUCOPHAGE 3-18 1,000 mg [facility]rice ege ) 1000 MG 00:00: tablet of tablet 00 Medicin e Blood 2020-0 Yes as [facility] Glucose 3-18 directed College Monitor 00:00: (DISPENSE of Software 00 BLOOD Medicin ALICIA GLUCOSE e MONITOR FORMULARY TO INSURANCE) metformin 2020-0 Yes metformin [place] [facility] (GLUCOPHAGE 3-18 1,000 mg [facility]rice ege ) 1000 MG 00:00: tablet of tablet 00 Medicin e Blood 2020-0 Yes as [facility] Glucose 3-18 directed College Monitor 00:00: (DISPENSE of Software 00 BLOOD Medicin ALICIA GLUCOSE e MONITOR FORMULARY TO INSURANCE) metformin 2020-0 Yes metformin [place] [facility] (GLUCOPHAGE 3-18 1,000 mg Beatrice ege ) 1000 MG 00:00: tablet of tablet 00 Medicin e Blood 2020-0 Yes as [facility] Glucose 3-18 directed College Monitor 00:00: (DISPENSE of Software 00 BLOOD Medicin ALICIA GLUCOSE e MONITOR FORMULARY TO INSURANCE) metformin 2020-0 Yes metformin [place] [facility] (GLUCOPHAGE 3-18 1,000 mg Beatrice ege ) 1000 MG 00:00: tablet of tablet 00 Medicin e Blood 2020-0 Yes as [facility] Glucose 3-18 directed College Monitor 00:00: (DISPENSE of Software 00 BLOOD Medicin ALICIA GLUCOSE e MONITOR FORMULARY TO INSURANCE) metformin 2020-0 Yes metformin [place] [facility] (GLUCOPHAGE 3-18 1,000 mg [facility]rice ege ) 1000 MG 00:00: tablet of tablet 00 Medicin e Blood 2020-0 Yes as [facility] Glucose 3-18 directed College Monitor 00:00: (DISPENSE of Software 00 BLOOD Medicin ALICIA GLUCOSE e MONITOR FORMULARY TO INSURANCE) metformin 2020-0 Yes metformin [place] [facility] (GLUCOPHAGE 3-18 1,000 mg [facility]rice ege [...] tab, PO, l tablet 14:26: Daily, # [place] 00 30 tab, 0 Refill(s) Acetaminoph 2020-0 [...] Refill(s) Tablet [Tylenol with Codeine #3] acetaminoph 2019-0 Yes 1 tab, PO, [facility] en-codeine 3-16 Q6H, PRN Colle ge (TYLENOL 00:00: Pain, # 28 of #3) 300-30 00 tab, 0 Medicin MG per Refill(s) e tablet acetaminoph 2019-0 Yes 1 tab, PO, [facility] en-codeine 3-16 Q6H, PRN Colle ge (TYLENOL 00:00: Pain, # 28 of #3) 300-30 00 tab, 0 Medicin MG per Refill(s) e tablet acetaminoph 2019-0 Yes 1 tab, PO, [facility] en-codeine 3-16 Q6H, PRN Colle ge (TYLENOL 00:00: Pain, # 28 of #3) 300-30 00 tab, 0 Medicin MG per Refill(s) e tablet acetaminoph 2019-0 Yes 1 tab, PO, [facility] en-codeine 3-16 Q6H, PRN Colle ge (TYLENOL 00:00: Pain, # 28 of #3) 300-30 00 tab, 0 Medicin MG per Refill(s) e tablet acetaminoph 2019-0 Yes 1 tab, PO, [facility] en-codeine 3-16 Q6H, PRN Colle ge (TYLENOL 00:00: Pain, # 28 of #3) 300-30 00 tab, 0 Medicin MG per Refill(s) e tablet acetaminoph 2019-0 Yes 1 tab, PO, [facility] en-codeine 3-16 Q6H, PRN Colle ge (TYLENOL 00:00: Pain, # 28 of #3) 300-30 00 tab, 0 Medicin MG per Refill(s) e tablet acetaminoph 2020-0 Yes 1 tab, PO, [facility] en-codeine 3-16 Q6H, PRN Colle ge (TYLENOL 00:00: Pain, # 28 of #3) 300-30 00 tab, 0 Medicin MG per Refill(s) e tablet Losartan Losartan 2019-0 Yes Shelly 1/[address] Potassium Potassium 1-29 [facility]: [facility] 00 l [facility] 2016-04 Yes 1 tab, PO, Memoria en 300 MG / 0-24 Q6H, PRN l Codeine 18:44: Pain, X 3 Fany nn Phosphate 00 day, # 12 30 MG Oral tab, 0 Tablet Refill(s) [Tylenol with Codeine #3] [facility] 2016-04 Yes 1 tab, PO, Memoria en 300 MG / 0-24 Q6H, PRN l Codeine 18:44: Pain, X 3 Fany nn Phosphate 00 day, # 12 30 MG Oral tab, 0 Tablet Refill(s) [Tylenol with Codeine #3] [facility] 2016-04 Yes 1 tab, PO, Memoria en 300 MG / 0-24 Q6H, PRN l Codeine 18:44: Pain, X 3 Fany nn Phosphate 00 day, # 12 30 MG Oral tab, 0 Tablet Refill(s) [Tylenol with Codeine #3] [facility] 2016-04 Yes 1 tab, PO, Memoria en 300 MG / 0-24 Q6H, PRN l Codeine 18:44: Pain, X 3 Fany nn Phosphate 00 day, # 12 30 MG Oral tab, 0 Tablet Refill(s) [Tylenol with Codeine #3] [facility] 2016-04 Yes 1 tab, PO, Memoria en 300 MG / 0-24 Q6H, PRN l Codeine 18:44: Pain, X 3 Fany nn Phosphate 00 day, # 12 30 MG Oral tab, 0 Tablet Refill(s) [Tylenol with Codeine #3] [facility] 2016-04 Yes 1 tab, PO, Memoria en [...] tab, PO, l tablet 18:43: Q8H, PRN [place] 00 Pain, Take with food, X 5 [...] 0-24 Route: PO, l 17:01: Drug form: [place] 00 TAB, ONCE, Dosing Weight 123.438, kg, Priority: STAT, Start date: 02/14/17 12:01:00 CDT, Stop date: 02/14/17 12:01:00 CDT Motrin 2017 No 600 mg, Memoria 0-24 Route: PO, l 17:01: Drug form: Jah 00 TAB, ONCE, Dosing Weight 123.438, kg, Priority: STAT, Start date: 02/14/17 12:01:00 CDT, Stop date: 02/14/17 12:01:00 CDT Motrin 2017- No 600 mg, Memoria 0-24 Route: PO, l 17:01: Drug form: [place] 00 TAB, ONCE, Dosing Weight 123.438, kg, Priority: STAT, Start date: 02/14/17 12:01:00 CDT, Stop date: 02/14/17 12:01:00 CDT Motrin 2017- No 600 mg, Memoria 0-24 Route: PO, [...] 0 Tablet Refill(s) [Tylenol with Codeine #3] [facility] Yes 1 tab, PO, Me moria 800 mg-160 5-17 BID, X 10 l mg oral 06:21: day, # 20 Fany nn tablet 00 tab, 0 Refill(s) [facility] Yes 1 tab, PO, Me moria 800 mg-160 5-17 BID, X 10 l mg oral 06:21: day, # 20 Fany nn tablet 00 tab, 0 [facility], PO, Me moria 800 mg-160 5-17 BID, X 10 l mg oral 06:21: day, # 20 Fany nn tablet 00 tab, 0 Refill(s) [facility] Yes 1 tab, PO, Me moria 800 mg-160 5-17 BID, X 10 l mg oral 06:21: day, # 20 Fany nn tablet 00 tab, 0 [facility] 1 tab, PO, Me moria 800 mg-160 5-17 BID, X 10 l mg oral 06:21: day, # 20 Fany nn tablet 00 tab, 0 [facility] 1 tab, PO, Me [...] 10 MG Oral hen. Tablet (Same as: [[place] 10/325] 325/10) Acetamino 2014-04 No Notes: Do M emoria en 325 MG / 2-05 not exceed l Hydrocodone 10:30: 4gm/day of Jah Bitartrate 00 acetaminop 10 MG Oral hen. Tablet (Same as: [[place] 10/325] 325/10) Acetamino 2014-04 No Notes: Do M emoria en 325 MG / 2-05 not exceed l Hydrocodone 10:30: 4gm/day of [place] Bitartrate 00 acetaminop 10 MG Oral hen. Tablet (Same as: [[place] 10/325] 325/10) Acetaminoph 2014-04 No Notes: Do M emoria en 325 MG / 2-05 not exceed l Hydrocodone 10:30: 4gm/day of Jah Bitartrate 00 acetaminop 10 MG Oral hen. Tablet (Same as: [[place] 10/325] 325/10) Acetaminoph 2014-04 No Notes: Do M emoria en 325 MG / 2-05 not exceed l Hydrocodone 10:30: 4gm/day of Jah Bitartrate 00 acetaminop 10 MG Oral hen. Tablet (Same as: [[place] 10/325] 325/10) Acetaminoph 2014-04 No Notes: Do M emoria en 325 MG / 2-05 not exceed l Hydrocodone 10:30: 4gm/day of [place] Bitartrate 00 acetaminop 10 MG Oral hen. Tablet (Same as: [[place] 10/325] 325/10) 200 ACTUAT 2014-04 Yes 2 puff, Thaddeus mekhi Albuterol 2-05 INHALATION l 0.09 09:39: , QID, 0 [place] MG/ACTUAT 00 Refill(s) Metered Dose Inhaler 200 ACTUAT 2014-04 Yes 2 puff, Thaddeus mekhi Albuterol 2-05 INHALATION l 0.09 09:39: , QID, 0 Jah MG/ACTUAT 00 Refill(s) Metered Dose Inhaler 200 ACTUAT 2014-04 Yes 2 puff, Thaddeus mekhi Albuterol 2-05 INHALATION l 0.09 09:39: , QID, 0 [place] MG/ACTUAT 00 Refill(s) Metered Dose Inhaler 200 ACTUAT 2014-04 Yes 2 puff, Thaddeus mekhi Albuterol 2-05 INHALATION l 0.09 09:39: , QID, 0 [place] MG/ACTUAT 00 Refill(s) Metered Dose Inhaler 200 ACTUAT 2014-04 Yes 2 puff, Thaddeus mekhi Albuterol 2-05 INHALATION l 0.09 09:39: , QID, 0 [place] MG/ACTUAT 00 Refill(s) Metered Dose Inhaler 200 ACTUAT 2014-04 Yes 2 puff, Thaddeus mekhi Albuterol 2-05 INHALATION l 0.09 09:39: , QID, 0 [place] MG/ACTUAT 00 Refill(s) Metered Dose Inhaler Non-Formula 2014-04 Yes Refill(s) Irma cardonaria ry Home 2-05 0 l Medication 09:38: [place] 00 Non-Formula 2014-04 Yes Refill(s) Irma cardonaria ry Home 2-05 0 l Medication 09:38: Jah 00 Non-Formula 2014-04 Yes Refill(s) Irma almeida ry Home 2-05 0 l Medication 09:38: Ajh 00 Non-Formula 2014-04 Yes Refill(s) Irma almeida ry Home 2-05 0 l Medication 09:38: [place] 00 Non-Formula 2014-04 Yes Refill(s) Irma almeida ry Home 2-05 0 l Medication 09:38: Jah 00 Non-Formula 2014-04 Yes Refill(s) Irma almeida ry Home 2-05 0 l Medication 09:38: Jah 00 non-formula 2014-04 Yes Refill(s) Irma almeida ry 2-05 0 l 09:37: [place] 00 non-formula 2014-04 Yes Refill(s) Irma almeida ry 2-05 0 l 09:37: [place] 00 non-formula 2014-04 Yes Refill(s) Irma almeida ry 2-05 0 l 09:37: [place] 00 non-formula 2014-04 Yes Refill(s) Irma almeida ry 2-05 0 l 09:37: [place] 00 non-formula 2014-04 Yes Refill(s) Irma almeida ry 2-05 0 l 09:37: Jah 00 non-formula 2014-04 Yes Refill(s) Irma almeida ry 2-05 0 l 09:37: Jah 00 Morphine 2014-04 No Notes: [facility] 2-05 (Same l 06:01: as:MORPhin Jah 00 e Sulfate) Ondansetron 2014-04 No Notes: Thaddeus mekhi 2-05 (Same as: l 06:01: Zofran) 00 MEDICATION WASTE Product Size: 4 mg Product Wasted: ___ mg Sodium 2014-04 No 1,000 mL, [facility] a Chloride 2-05 1000 l 0.154 06:01: ml/hr, [place] MEQ/ML 00 Infuse Injectable Over: 1 Solution hr, Route: IV, 1,000, Drug form: INJ, ONCE, Priority: STAT, Dosing Weight 122.727 kg, Start date: 03/28/15 0:01:00, Duration: 1 doses or times, Stop date: 03/28/15 0:01:00 Saline 2014-04 No Notes: [facility] Flush 0.9% 2-05 (Same as: l 06:01: BD [place] 00 Posiflush) Morphine 2014-04 No Notes: [facility] 2-05 (Same l 06:01: as:MORPhin [place] 00 e Sulfate) Ondansetron 2014-04 No Notes: Thaddeus mekhi 2-05 (Same as: l 06:01: Zofran) [place] 00 MEDICATION WASTE Product Size: 4 mg [...] Notes: [facility] 2-05 (Same l 06:01: as:MORPhin [place] 00 e Sulfate) Ondansetron 2014-04 No Notes: Thaddeus mekhi 2-05 (Same as: l 06:01: Zofran) Jah 00 MEDICATION WASTE Product Size: 4 mg Product Wasted: ___ mg Sodium 2014-04 No 1,000 mL, [facility] a Chloride 2-05 1000 l 0.154 06:01: ml/hr, [place] MEQ/ML 00 Infuse Injectable Over: 1 Solution [...] e Sulfate) Ondansetron 2014-04 No Notes: Thaddeus mkehi 2-05 (Same as: l 06:01: Zofran) [place] 00 MEDICATION WASTE Product Size: 4 mg [...] 0.9% 2-05 (Same as: l 06:01: BD [place] 00 Posiflush) Morphine 2014-04 No Notes: [facility] 2-05 (Same l 06:01: as:MORPhin [place] 00 e Sulfate) Ondansetron 2014-04 No Notes: [...] 0.9% 2-05 (Same as: l 06:01: BD [place] 00 Posiflush) Morphine 2014-04 No Notes: [facility] 2-05 (Same l 06:01: as:MORPhin [place] 00 e Sulfate) Ondansetron 2014-04 No Notes: [...] 0.9% 2-05 (Same as: l 06:01: BD [place] 00 Posiflush) Combigan Combigan Yes Shelly [address] [facility] Symbicort Symbicort Yes Shelly [address] [facility] Lumigan Lumigan Yes Shelly [address] [facility] Clinics Amlodipine Amlodipine Yes Shelly [address] [facility] [address] Besylate Besylate [facility] Vital Signs Vital Name Observation Time Observation Value Comments Source HEIGHT 2020-12-10 09:39:00 165.1 cm WEIGHT 2020-12-10 09:39:00 101.969 kg HEIGHT 2020-12-09 14:34:00 165.1 cm WEIGHT 2020-12-09 14:34:00 102.967 kg Systolic blood 2021-07-02 19:02:00 128 mm[Hg] [facility] pressure Medicine Diastolic blood 2021-07-02 19:02:00 78 mm[Hg] [facility] pressure Medicine Heart rate 2021-07-02 19:02:00 120 /min [facility] Body temperature 2021-07-02 19:02:00 36.11 [facility] Body height 2021-07-02 19:02:00 165.1 cm [facility] Body weight 2021-07-02 19:02:00 100.699 kg [facility] BMI 2021-07-02 19:02:00 36.94 kg/m2 [facility] Systolic blood 2020-12-25 16:54:00 112 mm[Hg] [facility] pressure Medicine Diastolic blood 2020-12-25 16:54:00 71 mm[Hg] [facility] Medicine Heart rate 2020-12-25 16:54:00 86 /min [facility] Body temperature 2020-12-25 16:54:00 36.11 [facility] Body height 2020-12-25 16:54:00 [facility].1 cm [facility] Body weight 2020-12-25 16:54:00 104.781 kg [facility] BMI 2020-12-25 16:54:00 38.44 kg/m2 [facility] Systolic blood 2020-12-25 16:09:00 118 mm[Hg] [facility] Medicine Diastolic blood 2020-12-25 16:09:00 79 mm[Hg] [facility] Medicine Heart rate 2020-12-25 16:09:00 106 /min [facility] Body height 2020-12-18 18:17:00 165.1 cm [facility] HEIGHT 2020-12-10 09:39:00 165.1 cm WEIGHT 2020-12-10 09:39:00 101.969 kg HEIGHT 2020-12-09 14:34:00 165.1 cm WEIGHT 2020-12-09 14:34:00 102.967 kg WEIGHT 2020-12-09 12:35:00 103.329 kg HEIGHT 2020-12-09 12:35:00 165.1 cm WEIGHT 2020-12-09 12:35:00 103.329 kg HEIGHT 2020-12-09 12:35:00 165.1 cm Systolic blood 2020-11-06 15:40:00 129 mm[Hg] [facility] pressure Medicine Diastolic blood 2020-11-06 15:40:00 76 mm[Hg] [facility] Medicine Heart rate 2020-11-06 15:40:00 91 /min [facility] Body temperature 2020-11-06 15:40:00 36.17 [facility] Body height 2020-11-06 15:40:00 165.1 cm [facility] Body weight 2020-11-06 15:40:00 101.606 kg [facility] BMI 2020-11-06 15:40:00 37.28 kg/m2 [facility] Height 2019-07-08 14:21:00 165.1 cm [facility] [place] Weight 2019-07-08 14:21:00 [facility] BMI Calculated 2019-07-08 14:21:00 [facility] [place] Respitory Rate 2017-02-14 19:00:00 [facility]ori al Jah Heart Rate 2017-02-14 19:00:00 [facility] [place] Systolic (mm Hg) 2017-02-14 19:00:00 Thaddeus rial [place] Diastolic (mm Hg) 2017-02-14 19:00:00 Mem orial [place] Heart Rate 2017-02-14 17:12:00 [facility] Jah Respitory Rate 2017-02-14 17:12:00 Memori al Jah Systolic (mm Hg) 2017-02-14 17:12:00 Thaddeus rial Jah Diastolic (mm Hg) 2017-02-14 17:12:00 Mem orial Jah Respitory Rate 2017-02-14 16:57:00 Memori al Jah Heart Rate 2017-02-14 16:57:00 [facility] [place] Systolic (mm Hg) 2017-02-14 16:57:00 Thaddeus rial Jah Diastolic (mm Hg) 2017-02-14 16:57:00 Mem orial [place] BMI Calculated 2017-02-14 15:38:00 [facility] [place] Weight 2017-02-14 15:38:00 [facility] [place] Height 2017-02-14 15:38:00 167.64 cm [facility] Temperature Oral (F) 2017-02-14 15:38:00 98.0 F [facility] [place] Respitory Rate 2016-09-07 06:40:00 Memori al Jah Heart Rate 2016-09-07 06:40:00 [facility] Temperature Oral (F) 2016-09-07 06:40:00 98.6 F [facility] [place] Systolic (mm Hg) 2016-09-07 06:40:00 Thaddeus rial Jah Diastolic (mm Hg) 2016-09-07 06:40:00 Mem orial Jah Systolic (mm Hg) 2016-09-07 05:54:00 Thaddeus rial [place] Diastolic (mm Hg) 2016-09-07 05:54:00 Mem orial [place] Heart Rate 2016-09-07 05:54:00 [facility] Jah Respitory Rate 2016-09-07 05:54:00 [facility]ori al Jah Temperature Oral (F) 2016-09-07 05:54:00 98.7 F [facility] [place] Height 2016-09-07 02:08:00 167.64 cm [facility] [place] Temperature Oral (F) 2016-09-07 02:08:00 99.0 F [facility] [place] Respitory Rate 2016-09-07 02:08:00 [facility] [place] Heart Rate 2016-09-07 02:08:00 [facility] Systolic (mm Hg) 2016-09-07 02:08:00 Thaddeus rial Jah Diastolic (mm Hg) 2016-09-07 02:08:00 Mem orial Jah Weight 2016-09-07 02:08:00 [facility] BMI Calculated 2016-09-07 02:08:00 [facility]ori al Jah Heart Rate 2015-03-28 11:51:00 [facility] Temperature Oral (F) 2015-03-28 11:51:00 98.0 F [facility] [place] Systolic (mm Hg) 2015-03-28 11:51:00 Thaddeus rial [place] Diastolic (mm Hg) 2015-03-28 11:51:00 Mem orial [place] Respitory Rate 2015-03-28 11:51:00 [facility] [place] Systolic (mm Hg) 2015-03-28 10:35:00 Thaddeus rial [place] Diastolic (mm Hg) 2015-03-28 10:35:00 Mem orial Jah Heart Rate 2015-03-28 10:35:00 [facility] Respitory Rate 2015-03-28 10:35:00 [facility] al [place] Systolic (mm Hg) 2015-03-28 09:36:00 Thaddeus rial Jah Diastolic (mm Hg) 2015-03-28 09:36:00 Mem orial [place] Heart Rate 2015-03-28 09:36:00 [facility] [place] Respitory Rate 2015-03-28 09:36:00 Memori al Jah Height 2015-03-28 05:58:00 165.1 cm [facility] Calculated 2015-03-28 05:58:00 Rey Churchill Weight 2015-03-28 05:58:00 Zeferino Tyson Temperature Oral (F) 2015-03-28 05:58:00 98.1 F [facility] Jah Height 2013-03-14 17:00:00 167.64 cm [facility] Weight 2013-03-14 17:00:00 [facility] Procedures Procedure Date / Time Performed Performing Clinician [facility] e Partial hysterectomy [facility] Plan of Care Planned Activity Planned Date Details Comments Source Future Scheduled 2021-07-02 Screening for malignant [facility] Test 13:02:47 neoplasm of colon Medicine (procedure) [code = 460573958] Future Scheduled 2021-07-02 Screening for malignant [facility] Test 13:02:47 neoplasm of breast Medicine (procedure) [code = 718624420] Future Scheduled 2021-07-02 COVID-19 Vaccine (1) [facility] Test 13:02:47 [code = COVID-19 Vaccine Med icine (1)] Future Scheduled 2021-07-02 Pneumococcal Combined (1 [facility] Test 13:02:47 of 4 - PCV13) [code = Medici ne Pneumococcal Combined (1 of 4 - PCV13)] Future Scheduled 2021-07-02 Diabetic foot examination [facility] Test 13:02:47 (regime/therapy) [code = Med icine 167480122] Future Scheduled 2021-07-02 ANNUAL DIABETIC [facility] Test 13:02:47 RETINOPATHY SCREENING Medici ne [code = ANNUAL DIABETIC RETINOPATHY SCREENING] Future Scheduled 2021-07-02 Hepatitis C screening [facility] Test 13:02:47 (procedure) [code = Medicine 285062784] Future Scheduled 2021-07-02 Human immunodeficiency B [facility] Test 13:02:47 virus screening Medicine (procedure) [code = 487544106] Future Scheduled 2021-07-02 Screening for malignant [facility] Test 13:02:47 neoplasm of cervix Medicine (procedure) [code = 852829268] Future Scheduled 2021-07-02 ZOSTER VACCINE (1 of 2) [facility] Test 13:02:47 [code = ZOSTER VACCINE (1 Me dicine of 2)] Future Scheduled 2021-07-02 MEDICARE IPPE (WELCOME TO [facility] of Test 13:02:47 MEDICARE) [code = Medicine MEDICARE IPPE (WELCOME TO MEDICARE)] Future Scheduled 2021-07-02 FLU VACCINE > 6 MONTHS B [facility] of Test 13:02:47 [code = FLU VACCINE > 6 Medi cine MONTHS] Future Scheduled 2021-07-02 TETANUS SHOT (ADULT) [facility] of Test 13:02:47 [code = TETANUS SHOT Medicin e (ADULT)] Future Scheduled 2021-07-02 BMI FOLLOW UP PLAN [code [facility] Test 13:02:47 = BMI FOLLOW UP PLAN] Medici ne Future Scheduled 2020-12-25 ZOSTER VACCINE (1 of 2) [facility] Test 11:56:38 [code = ZOSTER VACCINE (1 Me dicine of 2)] Future Scheduled 2020-12-25 MEDICARE IPPE (WELCOME TO [facility] of Test 11:56:38 MEDICARE) [code = Medicine MEDICARE IPPE (WELCOME TO MEDICARE)] Future Scheduled 2020-12-25 FLU VACCINE > 6 MONTHS B [facility] Test 11:56:38 [code = FLU VACCINE > 6 Medi cine MONTHS] Future Scheduled 2020-12-25 TETANUS SHOT (ADULT) [facility] of Test 11:56:38 [code = TETANUS SHOT Medicin e (ADULT)] Future Scheduled 2020-12-25 BMI FOLLOW UP PLAN [code [facility] Test 11:56:38 = BMI FOLLOW UP PLAN] Medici ne Future Scheduled 2020-12-25 Screening for malignant [facility] of Test 11:56:38 neoplasm of colon Medicine (procedure) [code = 698936938] Future Scheduled 2020-12-25 Screening for malignant [facility] Test 11:56:38 neoplasm of breast Medicine (procedure) [code = 718033360] Future Scheduled 2020-12-25 COVID-19 Vaccine (1) [facility] of Test 11:56:38 [code = COVID-19 Vaccine Med icine (1)] Future Scheduled 2020-12-25 Diabetic foot examination [facility] Test 11:56:38 (regime/therapy) [code = Med icine [id number]] Future Scheduled 2020-12-25 ANNUAL DIABETIC [facility] Test 11:56:38 RETINOPATHY SCREENING Medici ne [code = ANNUAL DIABETIC RETINOPATHY SCREENING] Future Scheduled 2020-12-25 Hepatitis C screening [facility] Test 11:56:38 (procedure) [code = Medicine 966342244] Future Scheduled 2020-12-25 Human immunodeficiency B [facility] 11:56:38 virus screening Medicine (procedure) [code = 254901567] Future Scheduled 2020-12-25 Screening for malignant [facility] Test 11:56:38 neoplasm of cervix Medicine (procedure) [code = 049187664] Future Scheduled 2020-12-25 ZOSTER VACCINE (1 of 2) [facility] Test 11:56:38 [code = ZOSTER VACCINE (1 Me dicine of 2)] Future Scheduled 2020-12-25 MEDICARE IPPE (WELCOME TO [facility] Test 11:56:38 MEDICARE) [code = Medicine MEDICARE IPPE (WELCOME TO MEDICARE)] Future Scheduled 2020-12-25 FLU VACCINE > 6 MONTHS B [facility] Test 11:56:38 [code = FLU VACCINE > 6 Medi cine MONTHS] Future Scheduled 2020-12-25 TETANUS SHOT (ADULT) [facility] Test 11:56:38 [code = TETANUS SHOT Medicin e (ADULT)] Future Scheduled 2020-12-25 BMI FOLLOW UP PLAN [code [facility] Test 11:56:38 = BMI FOLLOW UP PLAN] Medici ne Future Scheduled 2020-12-25 Screening for malignant [facility] Test 11:56:38 neoplasm of colon Medicine (procedure) [code = 005894878] Future Scheduled 2020-12-25 Screening for malignant [facility] Test 11:56:38 neoplasm of breast Medicine (procedure) [code = 284761212] Future Scheduled 2020-12-25 COVID-19 Vaccine (1) [facility] Test 11:56:38 [code = COVID-19 Vaccine Med icine (1)] Future Scheduled 2020-12-25 Diabetic foot examination [facility] Test 11:56:38 (regime/therapy) [code = Med icine 574402663] Future Scheduled 2020-12-25 ANNUAL DIABETIC [facility] Test 11:56:38 RETINOPATHY SCREENING Medici ne [code = ANNUAL DIABETIC RETINOPATHY SCREENING] Future Scheduled 2020-12-25 Hepatitis C screening [facility] Test 11:56:38 (procedure) [code = Medicine 199207534] Future Scheduled 2020-12-25 Human immunodeficiency B [facility] Test 11:56:38 virus screening Medicine (procedure) [code = 313172251] Future Scheduled 2020-12-25 Screening for malignant [facility] Test 11:56:38 neoplasm of cervix Medicine (procedure) [code = 111633595] Future Scheduled 2020-12-25 ZOSTER VACCINE (1 of 2) [facility] Test 11:56:38 [code = ZOSTER VACCINE (1 Me dicine of 2)] Future Scheduled 2020-12-25 MEDICARE IPPE (WELCOME TO [facility] Test 11:56:38 MEDICARE) [code = Medicine MEDICARE IPPE (WELCOME TO MEDICARE)] Future Scheduled 2020-12-25 FLU VACCINE > 6 MONTHS B [facility] Test 11:56:38 [code = FLU VACCINE > 6 Medi cine MONTHS] Future Scheduled 2020-12-25 TETANUS SHOT (ADULT) [facility] Test 11:56:38 [code = TETANUS SHOT Medicin e (ADULT)] Future Scheduled 2020-12-25 BMI FOLLOW UP PLAN [code [facility] Test 11:56:38 = BMI FOLLOW UP PLAN] Medici ne Future Scheduled 2020-12-25 Screening for malignant [facility] Test 11:56:38 neoplasm of colon Medicine (procedure) [code = 250414650] Future Scheduled 2020-12-25 Screening for malignant [facility] Test 11:56:38 neoplasm of breast Medicine (procedure) [code = 334024654] Future Scheduled 2020-12-25 COVID-19 Vaccine (1) [facility] Test 11:56:38 [code = COVID-19 Vaccine Med icine (1)] Future Scheduled 2020-12-25 Diabetic foot examination [facility] Test 11:56:38 (regime/therapy) [code = Med icine 555699884] Future Scheduled 2020-12-25 ANNUAL DIABETIC [facility] of Test 11:56:38 RETINOPATHY SCREENING Medici ne [code = ANNUAL DIABETIC RETINOPATHY SCREENING] Future Scheduled 2020-12-25 Hepatitis C screening [facility] Test 11:56:38 (procedure) [code = Medicine 987893468] Future Scheduled 2020-12-25 Human immunodeficiency B [facility] Test 11:56:38 virus screening Medicine (procedure) [code = 096975121] Future Scheduled 2020-12-25 Screening for malignant [facility] Test 11:56:38 neoplasm of cervix Medicine (procedure) [code = 147532863] Future Scheduled 2020-12-25 ZOSTER VACCINE (1 of 2) [facility] Test 11:56:38 [code = ZOSTER VACCINE (1 Me dicine of 2)] Future Scheduled 2020-12-25 MEDICARE IPPE (WELCOME TO [facility] Test 11:56:38 MEDICARE) [code = Medicine MEDICARE IPPE (WELCOME TO MEDICARE)] Future Scheduled 2020-12-25 FLU VACCINE > 6 MONTHS B [facility] Test 11:56:38 [code = FLU VACCINE > 6 Medi cine MONTHS] Future Scheduled 2020-12-25 TETANUS SHOT (ADULT) [facility] Test 11:56:38 [code = TETANUS SHOT Medicin e (ADULT)] Future Scheduled 2020-12-25 BMI FOLLOW UP PLAN [code [facility] Test 11:56:38 = BMI FOLLOW UP PLAN] Medici ne Future Scheduled 2020-12-25 Screening for malignant [facility] Test 11:56:38 neoplasm of colon Medicine (procedure) [code = 914277440] Future Scheduled 2020-12-25 Screening for malignant [facility] Test 11:56:38 neoplasm of breast Medicine (procedure) [code = 756064194] Future Scheduled 2020-12-25 COVID-19 Vaccine (1) [facility] Test 11:56:38 [code = COVID-19 Vaccine Med icine (1)] Future Scheduled 2020-12-25 Diabetic foot examination [facility] Test 11:56:38 (regime/therapy) [code = Med icine 089085601] Future Scheduled 2020-12-25 [facility]IC [facility] 11:56:38 RETINOPATHY SCREENING Medici ne [code = ANNUAL DIABETIC RETINOPATHY SCREENING] Future Scheduled 2020-12-25 Hepatitis C screening [facility] Test 11:56:38 (procedure) [code = Medicine 668616960] Future Scheduled 2020-12-25 Human immunodeficiency B [facility] Test 11:56:38 virus screening Medicine (procedure) [code = 685959208] Future Scheduled 2020-12-25 Screening for malignant [facility] Test 11:56:38 neoplasm of cervix Medicine (procedure) [code = 962546877] Future Scheduled 2020-12-18 BMI FOLLOW UP PLAN [code [facility] Test 13:30:20 = BMI FOLLOW UP PLAN] Medici ne Future Scheduled 2020-12-18 Screening for malignant [facility] Test 13:17:57 neoplasm of colon Medicine (procedure) [code = 236320175] Future Scheduled 2020-12-18 Screening for malignant [facility] Test 13:17:57 neoplasm of breast Medicine (procedure) [code = 987856774] Future Scheduled 2020-12-18 COVID-19 Vaccine (1) [facility] Test 13:17:57 [code = COVID-19 Vaccine Med icine (1)] Future Scheduled 2020-12-18 Diabetic foot examination [facility] Test 13:17:57 (regime/therapy) [code = Med icine 973111211] Future Scheduled 2020-12-18 [facility]IC [facility] 13:17:57 RETINOPATHY SCREENING Medici ne [code = ANNUAL DIABETIC RETINOPATHY SCREENING] Future Scheduled 2020-12-18 Hepatitis C screening [facility] Test 13:17:57 (procedure) [code = Medicine 193484839] Future Scheduled 2020-12-18 Human immunodeficiency B [facility] Test 13:17:57 virus screening Medicine (procedure) [code = 578671534] Future Scheduled 2020-12-18 Screening for malignant [facility] Test 13:17:57 neoplasm of cervix Medicine (procedure) [code = 019557813] Future Scheduled 2020-12-18 ZOSTER VACCINE (1 of 2) [facility] Test 13:17:57 [code = ZOSTER VACCINE (1 Me dicine of 2)] Future Scheduled 2020-12-18 MEDICARE IPPE (WELCOME TO [facility] Test 13:17:57 MEDICARE) [code = Medicine MEDICARE IPPE (WELCOME TO MEDICARE)] Future Scheduled 2020-12-18 FLU VACCINE > 6 MONTHS B [facility] Test 13:17:57 [code = FLU VACCINE > 6 Medi cine MONTHS] Future Scheduled 2020-12-18 TETANUS SHOT (ADULT) [facility] Test 13:17:57 [code = TETANUS SHOT Medicin e (ADULT)] Future Scheduled 2020-11-06 Screening for malignant [facility] Test 13:13:10 neoplasm of colon Medicine (procedure) [code = 031717551] Future Scheduled 2020-11-06 Screening for malignant [facility] Test 13:13:10 neoplasm of breast Medicine (procedure) [code = 342351051] Future Scheduled 2020-11-06 COVID-19 Vaccine (1) [facility] Test 13:13:10 [code = COVID-19 Vaccine Med icine (1)] Future Scheduled 2020-11-06 TETANUS SHOT (ADULT) [facility] Test 13:13:10 [code = TETANUS SHOT Medicin e (ADULT)] Future Scheduled 2020-11-06 Diabetic foot examination [facility] Test 13:13:10 (regime/therapy) [code = Med icine 793087120] Future Scheduled 2020-11-06 [facility]IC [facility] 13:13:10 RETINOPATHY SCREENING Medici ne [code = ANNUAL DIABETIC RETINOPATHY SCREENING] Future Scheduled 2020-11-06 Hepatitis C screening [facility] 13:13:10 (procedure) [code = Medicine 377827644] Future Scheduled 2020-11-06 Human immunodeficiency B [facility] 13:13:10 virus screening Medicine (procedure) [code = 423592161] Future Scheduled 2020-11-06 Screening for malignant [facility] Test 13:13:10 neoplasm of cervix Medicine (procedure) [code = 653935607] Future Scheduled 2020-11-06 ZOSTER VACCINE (1 of 2) [facility] Test 13:13:10 [code = ZOSTER VACCINE (1 Me dicine of 2)] Future Scheduled 2020-11-06 MEDICARE IPPE (WELCOME TO [facility] Test 13:13:10 MEDICARE) [code = Medicine MEDICARE IPPE (WELCOME TO MEDICARE)] Future Scheduled 2020-11-06 FLU VACCINE > 6 MONTHS B [facility] Test 13:13:10 [code = FLU VACCINE > 6 Medi cine MONTHS] Future Scheduled 2020-11-06 BMI FOLLOW UP PLAN [code [facility] Test 13:13:10 = BMI FOLLOW UP PLAN] Medici ne Encounters Start End Encounter Admission Attending Care Care Encounter Source Date/Time Date/Time Type Type Clinicians Facility Department ID 2021-06-08 Outpatient [facility] [id number] [facility] 2021-05-22 Outpatient Debbie, Na [facility] [id number] [facility] 2021-05-19 Outpatient Debbie, Na [facility] [id number] [facility] 14[facility]38:37 [facility] 2021-05-19 Outpatient Debbie, Na [facility] [id number] [facility] 14:09:02 [id number] [facility] 2021-05-19 Outpatient Debbie, Na [facility] [id number] [facility] 14:01:41 [id number] [facility] 2021-05-19 Outpatient Debbie, Na [facility] [id number] [facility] 13:50:30 [id number] [facility] 2021-05-19 Outpatient Arash, [facility] [id number] [facility] 13:28:10 Shelly [id number] [facility] 2021-05-19 Outpatient Arash, [facility] [id number] [facility] 12:08:56 Shelly [id number] [facility] 2021-05-19 Outpatient Arash, [facility] [id number] [facility] 11:31:36 Shelly [id number] [facility] 2021-05-19 Outpatient Arash, [facility] [id number] [facility] 11:12:52 Shelly 89977 [facility] 2021-05-19 Outpatient Arash, [facility] [id number] [facility] 11:04:02 Shelly [id number] [facility] 2021-05-19 Outpatient Arash, [facility] [id number] [facility] 11:00:43 Shelly [id number] [facility] 2021-05-19 Outpatient Arash, [facility]LMLC [facility] [id number] 11:00:34 Shelly [id number] [facility] 2021-01-31 Outpatient ANDREY, [facility] Surgery [id number] [facility] 05:40:26 BAIRON 2020-01-10 Outpatient NORM [facility] MED [id number] [facility] 15:47:17 ASIA 2021-08-09 2021-08-09 ambulatory [facility]LMLC [facility] [id number] [facility]00 [facility] 2021-08-06 2021-08-07 Outpatient ER TATY, [facility] Neurosurger [id number] [facility] 12:07:00 19:12:00 LESLEY redmond 2021-07-19 2021-07-19 ambulatory [facility]LMLC [facility]LMLC [id number] [facility]00 [facility] 2021-07-19 2021-07-19 ambulatory [facility]LMLC STLC [id number] [facility] 2021-07-05 2021-07-05 ambulatory STLMLC STLMLC [id number] [facility]00 [facility] 2021-07-02 2021-07-02 Office ERMA BALDERAS [id number] 97 [facility] 12:38:09 15:25:44 Visit BAIRON Grigsby 350.1.13.21 Co llege 0.2.7.2.686 of [id number] [facility] 510 e 2021-05-14 2021-05-14 ambulatory STLMLC STLMLC [id number] [facility]00 [facility] 2021-02-12 2021-02-12 Outpatient STLMLC [facility]C [id number] [facility]00 [facility] 2020-12-25 2020-12-25 Office ERMA Balderas [id number] 72 [facility] 11:48:52 12:03:52 Visit Baironnyla Chambers McNair 350.1.13.21 College 0.2.7.2.686 of [id number] Medi abraham 510 e 2020-12-25 2020-12-25 Office MICHELLE Alonzo [id number] 209 [facility] 11:01:49 11:37:00 Visit Karine AMBULATOR 350.1.13.21 College Y 0.2.7.2.686 of [id number] Medi abraham 800 e 2020-12-18 2020-12-18 Office MICHELLE Kingsley [id number] [facility] 12:52:33 13:52:10 Visit Karma AMBULATOR 350.1.13.21 College Y 0.2.7.2.686 of [id number] Medi abraham 800 e 2020-12-09 2020-12-09 Outpatient EL [facility] [id number] [facility] 00:00:00 00:00:00 2020-12-09 2020-12-09 Outpatient EL [facility] [id number] [facility] 00:00:00 00:00:00 2020-11-26 2020-11-26 Outpatient MICHELLE DAY [facility] [id number] 1 [facility] 10:56:07 12:09:57 WHITNEY mera of Medicin e 2020-11-11 2020-11-11 [id number] 00:00:00 00:00:00 [facility] 2020-11-06 2020-11-06 Office Andrey [facility] [id number] 81 [facility] 10:24:12 12:43:12 Visit Bairon Griselda GuNair 350.1.13.21 College 0.2.7.2.686 of [id number] Medi abraham 510 e 2020-11-06 2020-11-06 Outpatient MICHELLE GONZALES [facility] [id number] [facility] 11:50:11 12:35:12 JUAN FRANCISCO frausto of Medicin e 2020-09-25 2020-09-25 Outpatient MICHELLE BALDERAS [facility] [id number] 0 [facility] 13:46:53 15:07:45 BAIRON mera of Medicin e 2019-12-04 2019-12-04 [facility] [id number] 08:52:00 08:52:00 [facility] Medicine Medicine Outpati ent Clinics 2019-11-07 2019-11-07 [facility] [id number] [facility] 15:00:00 15:00:00 [facility] l Medicine Outpati ent Clinics 2019-08-20 2019-08-20 [facility] [id number] [facility] 08:12:00 08:12:00 [facility] l Medicine Outpati ent Clinics 2019-08-14 2019-08-14 [facility] [id number] [facility] 11:00:00 11:00:00 [facility] Medicine Outpati ent Clinics 2019-07-08 2019-07-09 Outpatient [place] [id number] [facility] 13:31:00 04:59:00 [facility] 00 l [facility] 2019-07-08 2019-07-08 Outpatient YALLAMPALLI [facility] [id number] [facility] 08:31:00 23:59:00 , [facility] 2019-07-08 2019-07-08 [facility] [id number] [facility] 13:11:00 13:11:00 [facility] Medicine Outpati ent Clinics 2019-05-22 2019-05-22 [facility] [id number] [facility] 21:07:00 21:07:00 [facility] Medicine Outpati ent Clinics 2019-05-22 2019-05-22 [facility] [id number] [facility] 09:30:00 09:30:00 [facility] Medicine Outpati ent Clinics 2019-05-20 2019-05-20 [facility] [id number] [facility] 08:57:00 08:57:00 [facility] Medicine Outpati ent Clinics 2019-05-16 2019-05-16 [facility] [id number] [facility] 14:55:00 14:55:00 [facility] Medicine Outpati ent Clinics 2019-05-07 2019-05-07 [facility] [id number] [facility] 15:15:00 15:15:00 [facility] Medicine Outpati ent [facility] 2017-02-14 2017-02-14 Emergency nullFlavo [facility] [id number] [facility] 15:33:00 19:15:00 r Jah 03 l [facility] 2016-09-07 2016-09-07 Emergency nullFlavo [facility] [id number] [facility] 01:43:00 06:42:00 r Jah 02 l [facility] 2015-03-28 2015-03-28 nullFlavo [facility] [id number] 475 [facility] 05:42:00 12:26:00 Emergency r Jah [address] [facility] 2013-03-14 2013-03-14 Outpatient nullFlavo [facility] [id number] [facility] 10:55:00 23:59:00 [facility] 00 l Jah Results Test Description Test Time Test Comments Results Result Comments Source POCT-GLUCOSE METER 2021-08-07 11:42:36 Test Item Value Reference Range Interpretation Comme nts POC-GLUCOSE METER (BEAKER) 212 mg/dL 70-110 H : TESTED AT [facility] [address] [facility] (test code = 1538) [facility] [address]: Cant Gang Sawyer/Techni ang ID = [id number] for TerenceJared POCT-GLUCOSE [id number] 06:16:02 Test Item Value Reference Range Interpretation Comments POC-GLUCOSE METER 157 mg/dL 70-110 H : [place] [address] (BEAKER) (test code [facility], = 1538) [facility] 77 384: Cant Gang Sawyer/Techni ang ID = [id number] for Maureen Marquez COMPREHENSIVE METABOLIC [id number] 04:13:11 Test Item Value Reference Range Interpretation Comments TOTAL PROTEIN 7.6 gm/dL 6.0-8.5 (BEAKER) (test code = 770) ALBUMIN (BEAKER) 4.3 g/dL 3.5-5.0 (test code = 1145) ALKALINE PHOSPHATASE 80 U/L 30-115 (BEAKER) (test code = 346) BILIRUBIN TOTAL 0.3 mg/dL 0.1-1.3 (BEAKER) (test code = 377) SODIUM (BEAKER) (test 139 meq/L 135-148 code = 381) POTASSIUM (BEAKER) 3.9 meq/L 3.5-5.5 (test code = 379) CHLORIDE (BEAKER) 103 meq/L 98-106 (test code = 382) CO2 (BEAKER) (test 21 meq/L 20-31 code = 355) BLOOD UREA NITROGEN 12 mg/dL 10-26 (BEAKER) (test code = 354) CREATININE (BEAKER) 0.74 mg/dL 0.50-1.20 (test code = 358) GLUCOSE RANDOM 151 mg/dL 70-110 H (BEAKER) (test code = 652) CALCIUM (BEAKER) 9.6 mg/dL 8.5-10.5 (test code = 697) AST (SGOT) (BEAKER) 13 U/L 5-40 (test code = 353) ALT (SGPT) (BEAKER) 17 U/L 6-50 (test code = 347) EGFR (BEAKER) (test 97 mL/min/1.73 ESTIMA ALVARO GFR IS code = 1092) sq m NOT ACCURATE CREATININE CLEARANCE IN PREDICTING GLOMERULAR FILTRATION RATE . ESTIMATED GFR I S NOT APPLICABLE FOR DIALYSIS PATIEN TS. [employer] Sawyer ID - [id number] W/PLT COUNT & AUTO [id number] 03:48:25 Test Item Value Reference Range Interpretation Comments WHITE BLOOD CELL COUNT (BEAKER) 9.3 K/ L 4.0-10.0 (test code = 775) RED BLOOD CELL COUNT (BEAKER) 4.62 M/ L 4.00-5.00 (test code = 761) HEMOGLOBIN (BEAKER) (test code = 12.5 GM/DL 12.0-15.5 410) HEMATOCRIT (BEAKER) (test code = 39.2 % 36.0-46.0 411) MEAN CORPUSCULAR VOLUME (BEAKER) 84.8 fL 82.0-99.0 (test code = 753) MEAN CORPUSCULAR HEMOGLOBIN 27.1 pg 27.0-33.0 (BEAKER) (test code = 751) MEAN CORPUSCULAR HEMOGLOBIN CONC 31.9 GM/DL 32.0-36.0 L (BEAKER) (test code = 752) RED CELL DISTRIBUTION WIDTH 12.9 % 12.0-15.0 (BEAKER) (test code = 412) PLATELET COUNT (BEAKER) (test 477 K/CU MM 150-430 H code = 756) MEAN PLATELET VOLUME (BEAKER) 8.7 fL 6.0-11.5 (test code = 754) NUCLEATED RED BLOOD CELLS 0 /100 WBC 0-0 (BEAKER) (test code = 413) NEUTROPHILS RELATIVE PERCENT 73 % (BEAKER) (test code = 429) LYMPHOCYTES RELATIVE PERCENT 18 % (BEAKER) (test code = 430) MONOCYTES RELATIVE PERCENT 6 % (BEAKER) (test code = 431) EOSINOPHILS RELATIVE PERCENT 2 % (BEAKER) (test code = 432) BASOPHILS RELATIVE PERCENT 1 % (BEAKER) (test code = 437) NEUTROPHILS ABSOLUTE COUNT 6.76 K/ L 1.80-8.00 (BEAKER) (test code = 670) LYMPHOCYTES ABSOLUTE COUNT 1.65 K/ L 1.48-4.50 (BEAKER) (test code = 414) MONOCYTES ABSOLUTE COUNT (BEAKER) 0.58 K/ L 0.00-1.30 (test code = 415) EOSINOPHILS ABSOLUTE COUNT 0.18 K/ L 0.00-0.50 (BEAKER) (test code = 416) BASOPHILS ABSOLUTE COUNT (BEAKER) 0.05 K/ L 0.00-0.20 (test code = 417) IMMATURE GRANULOCYTES-RELATIVE 0 % 0-0 PERCENT (BEAKER) (test code = 2801) POCT-GLUCOSE [id number] 23:28:43 Test Item Value Reference Range Interpretation Comments POC-GLUCOSE METER 122 mg/dL 70-110 H : TESTED A T [facility] [address] (BEAKER) (test code [facility], = 1538) [place] [address] 384: [employer] Sawyer/Techni ang ID = [id number] for Irma Tasha ly POCT-GLUCOSE [id number] 20:44:59 Test Item Value Reference Range Interpretation Comments POC-GLUCOSE METER 163 mg/dL 70-110 H : TESTED A T [facility] [address] (BEAKER) (test code [facility] [address] THE, = 1538) [place] [address] 384: [employer] Sawyer/Techni ang ID = [id number] for Maureen Marquez MR, BRAIN, [id number] 19:28:00Unlisted Reason for Exam - Click Yes and Enter Reason Below->No [facility] CENTERName: ANGE CUBA SEPTEMBER : 1960 Sex: FFINAL REPORT MR, BRAIN, WITH \\T\\ WITHOUT CONTRAST INDICATION: Altered mental status Technique: MRI of the brain utilizing axial T1, T2, FLAIR, GRE, DWI, sagittal T1; and postgadolinium axial, sagittal, and coronal T1-weighted images. COMPARISON: None FINDINGS:Multiple subcentimeter enhancing intracranial metastases within the left parietal lobe, bilateral temporal lobes and the cerebellar hemispheres. No significant associated mass effect. No restricted diffusion to suggest recent ischemic insult. No abnormal susceptibility. Scattered T2/FLAIR hyperintense foci within the periventricular and subcortical white matter are nonspecific, however, statistically representchronic microvascular ischemic changes. No hydrocephalus. Orbits are within normal limits. No obstructive paranasal sinus disease. Additional findings: None. IMPRESSION: Multiple subcentimeter enhancing intracranial metastases within the left parietal lobe, bilateral temporal lobes and the cerebellarhemispheres. No significant associated mass effect. Signed: [facility] Verified Date/Time: 08/06/2021 19:28:21 HEMOGLOBIN [id number] 18:37:12 Test Item Value Reference Range Interpretation Comments HEMOGLOBIN A1C (BEAKER) (test code = 6.7 % 4.3-6.1 H 368) [employer] Sawyer ID - [id number] 17:37:14 Test Item Value Reference Range Interpretation Comments POC-GLUCOSE METER 180 mg/dL 70-110 H : TESTED A T [facility] [address] (BEAKER) (test code [facility] [address] THE, = 1538) [facility] 77 384: [employer] Sawyer/Techni ang ID = [id number] for Yaima Ocampo VITAMIN [id number] 15:57:57 Test Item Value Reference Range Interpretation Comments VITAMIN B12 (BEAKER) (test code = 167 pg/mL 211-911 L 774) [employer]yer ID - [id number] 15:25:35 Test Item Value Reference Range Interpretation Comments TRIGLYCERIDES (BEAKER) (test code = 86 mg/dL 540) CHOLESTEROL (BEAKER) (test code = 177 mg/dL 631) HDL CHOLESTEROL (BEAKER) (test code 41 mg/dL = 976) LDL CHOLESTEROL CALCULATED (BEAKER) 119 mg/dL (test code = 633) Triglyceride Reference Range: Low Risk <150 Borderline 150-199 High Risk 200-499 Very High Risk >=500Cholesterol Reference Range: Low Risk <200 Borderline 200-239 High Risk >240HDL Cholesterol Reference Range: Low Risk >=60 High Risk <40LDL Cholesterol Reference Range: Optimal <100 Near Optimal 100-129 Borderline 130-159 High 160-189 Very High >=190 [employer]yer ID - [id number] 15:16:20 Test Item Value Reference Range Interpretation Comments RBC UA (BEAKER) (test code = 519) < /HPF WBC UA (BEAKER) (test code = 520) 1 /HPF MUCUS (BEAKER) (test code = 1574) Rare SQUAMOUS EPITHELIAL (BEAKER) (test 2 /HPF code = 516) [employer] Sawyer ID - techURINALYSIS WITH MICROSCOPIC IF [id number] 15:16:18 Test Item Value Reference Range Interpretation Comments COLOR (BEAKER) (test code = 470) Yellow CLARITY (BEAKER) (test code = 469) Clear SPECIFIC GRAVITY UA (BEAKER) (test 1.057 1.001-1.035 H code = 468) PH UA (BEAKER) (test code = 467) 5.0 5.0-8.0 PROTEIN UA (BEAKER) (test code = 30 mg/dL Negative A 464) GLUCOSE UA (BEAKER) (test code = Negative Negative 365) KETONES UA (BEAKER) (test code = 20 mg/dL Negative A 371) BILIRUBIN UA (BEAKER) (test code = Negative Negative 462) BLOOD UA (BEAKER) (test code = 461) Negative Negative NITRITE UA (BEAKER) (test code = Negative Negative 465) LEUKOCYTE ESTERASE UA (BEAKER) (test Negative Negative code = 466) UROBILINOGEN UA (BEAKER) (test code < mg/dL 0.2-1.0 = 463) SOURCE(BEAKER) (test code = 2795) [employer] Sawyer ID - [auto]Cant [employer] Sawyer ID - techPOCT-GLUCOSE [id number] 12:57:53 Test Item Value Reference Range Interpretation Comments POC-GLUCOSE METER 152 mg/dL 70-110 H : TESTED A T [facility] [address] (BEAKER) (test code [facility], = 1538) [place] [address] 384: Cant Gang Sawyer/Techni ang ID = [id number] for Yaima Ocampo TISSUE [id number] 13:13:45Surgical Pathology Report Case: [id number] Authorizing Provider: Bairon Balderas MD Collected: 12/10/2020 01:53 PM Ordering Location: [facility] PERI[facility] Received: 12/10/2020 02:08 PM SERVICES [...] markin REASON FOR ADDENDUM : TO REPORT NEOTYPE ANALYSIS RESULTSTUMOR MUTATIONAL BURDEN : INTERMEDIATEPAN-TRK : NOT EXPRESSEDNO ABNORMALITIES IN FOLLOWING GENES : BRCA1, BRCA2, ERBB2, ESR1, LCO1TWNgj scanned [employer] ReportAddendum electronically signed by Gretel Saenz MD on 03/09/2021 at 1:13 PMREASON FOR ADDENDUM : TO REPORT RESULTS OF MET AND PTENMET AMPLIFICATION : NOT DETECTED - MET (7q31) SIGNALS PER NUCLEUS : 2.1 - CEN7 SIGNALS PER NUCLEUS : 1.8 - MET/CEN7 SIGNAL RATIO : 1.1PTEN DELETION : DETECTEDSee scanned [employer] ReportAddendum electronically signed by Gretel Saenz MD on 03/02/2021 at 9:35 AMREASON FOR ADDENDUM: TO REPORT PD- L1 RESULT.PD-L1 22C3 FDA (KEYTRUDA) FOR TNBC :CPS <10NO PD-L1 EXPRESSIONCombined Positive Score : 4See scanned [employer] Result Addendum electronically signed by Gretel Saenz MD on 02/25/2021 at 9:29 AMThe addendum is being issuedto report the results of immunohistochemistry (IHC) testing for Mismatch Repair (MMR) Proteins, which has been performed at the request of the oncologist.The diagnosis remains unchanged.IHC testing forall four MMR proteins was performed on selected block A11 with appropriate controls.RESULTSMLH1: Intact nuclear expressionMSH2: Intact nuclear expressionMSH6: Intact nuclear expressionPMS2: Intact nuclear expressionIHC InterpretationNo loss of nuclear expression of MMR proteins: 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) 77998 X 1, 92455 x 3 Addendum electronically signed by Gretel Saenz MD on 02/22/2021 at 9:17 AMREASON FOR ADDENDUM: TO REPORT HER2 FISH RESULT.HER2 AMPLIFICATION: NEGATIVE (NON-AMPLIFIED)RATIO (HER2:CEP17): 1.2AVERAGE NUMBER HER2 SIGNALS/ NUCLEUS: 3.0AVERAGE NUMBER CEP17 SIGNALS/NUC LEUS: 2.5See scanned [employer] Result Addendum electronically signed by Gretel Saenz [...] : 0.4MM - SEE PART D FOR FINALDEEP MARGIN - ALL OTHERS MARGINS > 10MM - BIOPSY SITE CHANGES (CLIP X 1) IDENTIFIED - AREAS OF PRIOR SURGICAL SITE CHANGES - NO INSITU COMPONENT IDENTIFIED - BENIGN BREAST TISSUE - BENIGN SKIN WITH SCARRINGB. BREAST, LEFT ADDITIONAL TISSUE / MARGIN, EXCISION - FIBROFATTY TISSUE AND SKELETAL MUSCLE- WITH FOREIGN BODY GIANT CELL REACTION - TINY BONY SPICULES - NEGATIVE FOR CARCINOMAC. LYMPH NODES, LEFT AXILLA, EXCISION - NINE OF TEN LYMPH NODES WITH METASTATIC CARCINOMA(9/10) - WITH EXTENSIVE EXTRANODAL EXTENSION AND MATTED NODES - WITH CENTRAL AREAS OF NECROSIS - LARGEST FOCUS : APPORX. 30MM D. BREAST, LEFT, D EEP MARGIN OVER TUMOR, EXCISION - SKELETAL MUSCLE AND FIBROFATTY TISSUE - WITH FOREIGN BODY GIANT CELL REACTION - NEGATIVE FOR CARCINOMA Signing Pathologist Direct Phone Line: [phone] signed by Gretel Saenz MD on 12/15/2020 at 9:31 AMTUMOR STAGING (PATHOLOGY) S/P NEOADJUVANT THERAPYAnatomic site of tumor : LEFT CHEST WALL / BREASTHistologic type : Infiltrating ductal carcinoma, no special typeHistologic grade : G3, poorly differentiatedTumor size : 29mmPrimary tumor (T) : dgwX9Gisth node (N) : jbjG5Aadimks : NegativeLYMPH NODESUMMARYTotal # of sentinel lymph nodes : 0Total [...] OF THE BREAST: COMPLETE EXCISION - All [id number] Edition - Protocol posted: 06/19/2019SPECIMEN Procedure: Excision (less than total mastectomy) Specimen Laterality: Left TUMOR Histologic Type: Invasive carcinoma of no special type (ductal) Glandular (Acinar) / Tubular Differentiation: Score 3 Nuclear Pleomorphism: Score 3 Mitotic Rate: Score 3 Overall Grade: Grade 3 (scores of 8 or 9) Tumor Size: Greatest dimension of largest invasive focus (Millimeters): 29mm Tumor Focality: Single focus of invasive carcinoma [...] cells): 0 Size of Largest Metastatic Deposit (Mi llimeters): 30 mm Extranodal Extension: Present Extent of [...] Performed on Case Number: BLOCK A11 A. 37255 X 1; 24590 X 1; 36433 X 4B. 29117 X 1C. 75913 X 1D. 13677 X 1Malignant neoplasm of left breast in [...] BLOCK A11ER - NEGATIVEPR - NEGATIVEHER2 - [id number] - HIGHCAP REGULATION: FIXATION TIME FOR BIOMARKERS ASSESSMENTCollection date and time: 12/10/2020; 1353 HRSPlaced in fixative date and time: 12/10/2020; 1425 HRSRemoved from formalin date and time: 12/12/2020; 0700 HRSMethodology:Fixation type and length: tissue was fixed in 10% neutral buffered formalin for a minimal ofat least 6 hours and not longer than 72 hours.Antibody and Assay Methodology: Antibodies for ER, PgR, Her2 and Ki67 were assessed using clones SP1, 1E2, 4B5 (FDA Approved [employer] [place] [employer]) and 30-9 respectively utilizing the ultraView [place] DAB Detection Kit from [employer] [place], [place].Control Slides Examined: In- house known ER, [place], HER2 and Ki67 positive controls were evaluated along with test tissue. These control slides run alongside of the patients sample show appropriate staining.Interpretive Criteria: The staining results are according to the ASCO/CAP guidelines for HER2 (see Yovana CESPEDES, Day Angel, et al. HER 2 Testing in Breast Cancer: ASCO/CAP Focused Update. Arch Pathol Lab Med. 2018;142(11):4671-0116. doi:10.5858/arpa.[id number]-FF) and ER/[place] (see Day VIZCAINO, Carmen HOPSON, Monica Solis, et al. ER and [place] Testing in Breast Cancer: ASCO/CAP Guideline Update. J Clin Oncol. 2020;38(12):0929-8081. doi:10.1200/JCO.19.23754).By ASCO/CAP guidelines, ER and [place] "positive" requires [...] = none; 1 < 1/100; 2 = 1/100- 1/10; 3 = >1/10-1/3; 4 = >1/3-2/3; 5> [...] IHC total scores with clinical outcome in patientsreceiving hormonal therapy (see: Modern Pathol 11:155, 1998; J Clin Oncol 17:1474, 1998; Int J Cancer 89:111, 2000; Breast Cancer Res Treat 76:S36[abst#30], 2002).Immunohistochemistry was performed on paraffin sections of breast tissue for the factors listed. The immunostaining signals were expressed as scores representing the estimated proportion and intensity of positive tumor cells. Appropriate positive and negative controls were included in the evaluation.COMMENTER low positive (1%-10% positive)- The cancer in this sample has a low level (1%10%) of ER expression by IHC. There are limited data on the overall benefit of endocrine therapies for patients with low level (1%10%) ER expression, but they currently suggest possible benefit, so patients are considered eligible for endocrine treatment.There are data that suggest invasive cancers with these results are heterogeneous in both behavior and biology and often have gene expression profiles more similar to ER-negative cancers.ER (0%- 10%) and no internal control - No internal controls are present, but external controls are appropriately positive. If needed, testing another specimen that contains internal controls may be warranted for confirmation of ER status.Immunohistochemistry technical testing was performed at [facility], Pathology Laboratory where it was [...] to perform high complexity clinical laboratory testing. [facility], Department of Pathology, [address] [place] [address], [facility] of [facility], [address] [place] [address], [facility], Department of [facility], [address] [place] [address], a. Received fresh labeled with the patient's [...] to lateral into 17 slices. The cut surfacedisplays a 2.6 cm (superior-inferior) x 2.9 cm (medial-lateral) x 2.5 cm (superficial-deep) echeverria-pinkfibrotic well-circumscribed mass located in slices 12-13. The mass is 2.5 cm from the superficial superior margin, 3.5 cm from the superficial inferior margin and abuts the deep margin. The specimen is x-rayed and a metallic-adames C shaped clip is identified within slice 13.The remaining breast tissue is 80% adipose tissue and 20% fibrous tissue. No other discrete mass is identified. Ticket Speculator sections are submitted.Time in formalin: 12/10/20 at 3:00 PM.Ink code:Blue: Superficial superior margin Red: Superficial inferior marginBlack: DeepSection code:A1: Perpendicular sections of the medial marginA2: Fibrotic area from slice 5A3: Fibrotic area from slice 6A4: Fibrotic area with adiposenodule from slice 8A5: Fibrotic area from slice 9A6: Fibrotic area from slice 23H5-X9: Bookend sections to mass from slice 11 submitted superior to inferiorA9: Superficial superior margin with skin from slice 12A10: Superficial inferior margin with skin from slice 56I62-S50: Mass from superior to inferior with deep margin from slice 46A62-B79: Thinned section of mass from slice 12, submitted superiorto inferior with deep spmqvrX29: Superficial superior margin with skin from slice 13A16: Superficialinferior margin with skin from slice [id number]: Mass from superior to inferior with deep margin fromslice 13, area around kskwM39-Y34: Thinned section of mass from slice 13, submitted superior to inferior with deep yevzuwK56-D22: Bookend sections to mass from slice 14 submitted superior to ipgprkvgV30: Fibrotic area with adipose nodule from slice 16A24: Perpendicular sections of the lateral marginB. Received in formalin labeled with the patient's name, accession number and "breast, left" is a 16 gmirregular piece of fibrofatty tissue measuring 4.5 x 4.5 x 2 cm with one stitch designating the truemargin.The portion with the stitch is slightly scabrous to hernández-white and is smooth, and the opposite surface is echeverria-yellow and scabrous. The specimen is serially sectioned to reveal 95% adipose tissueand 5% fibrous tissue. No discrete lesion is identified.Ink code: True margin black and opposite surface orange.Ticket Speculator sections are submitted from the specimen in cassettes B1-B7.C. Received informalin labeled with the patient's name, accession number and "left axilla" is a 40 gm, 7 x 6.5 x 2cm, irregular piece of fibrofatty tissue with an [...] code: Sutured portion of the specimen inked blue.Ticket Speculator sections are submitted from the specimen.Section code: C1, five whole possible nodes; C2, one indurated hernández-white to echeverria-yellow area, bisected; C3, goodwill representative sections of the matted nodes; C4, one bisected possible node; C5-C6, largest node representatively submitted with the inked soft tissue included.The specimen is radiographed, and no clips are identified.D. Received in formalin labeledwith the patient's name, accession number and "breast, left (On the requisition it says left breast deep margin over to tumor, stitch mahoney true margin, but on the container it is received in formalin labeled with "breast, left")" is a 3 gm irregular piece of fibrofatty tissue measuring 3 x 2 x 0.2 cmwith a stitch on one surface designating the true margin. There are a few pieces of muscle associated with the specimen. The specimen is serially sectioned to reveal 60% of adipose and 40% of muscular tissue. There are no discrete masses identified.Ink code: True margin inked black and opposite surface orange.The specimen is submitted in its entirety in cassettes D1-D4. KM/ewPOCT-GLUCOSE [id number] 07:24:00 Test Item Value Reference Range Interpretation Comments POC-GLUCOSE METER 138 mg/dL 70-110 H : TESTED A T [facility] 6720 (BEAKER) (test code = [facility], 1538) [id number]: Cant Gang Sawyer/Techni ang ID = [id number] for Lisbeth Tran BASIC METABOLIC [id number] 06:41:00 Test Item Value Reference Range Interpretation [...] S NOT APPLICABLE FOR DIALYSIS PATIEN TS. Cant Gang Sawyer ID - RALF [id number] 06:41:00 Test Item Value Reference Range Interpretation Comments MAGNESIUM (BEAKER) (test code = 1.5 mg/dL 1.6-2.6 L 627) Cant Gang Sawyer ID - RALF [id number] 06:41:00 Test Item Value Reference Range Interpretation Comments PHOSPHORUS (BEAKER) (test code = 1.9 mg/dL 2.3-4.7 L 604) Cant Gang Sawyer ID - RALF [facility] W/PLT COUNT & AUTO [id number] 06:12:00 Test Item Value Reference Range Interpretation [...] PERCENT (BEAKER) (test code = 2801) CALCIUM, [id number] 06:07:00 Test Item Value Reference Range Interpretation Comments CALCIUM IONIZED (BEAKER) (test 1.08 mmol/L 1.12-1.27 L code = 698) PH, BLOOD (BEAKER) (test code = 7.44 1810) POCT-GLUCOSE [id number] 22:12:00 Test Item Value Reference Range Interpretation Comments POC-GLUCOSE METER 219 mg/dL 70-110 H : TESTED A T [facility] 6720 (BEAKER) (test code = [facility], 153) [address]: Cant Gang Sawyer/Techni ang ID = [id number] for Christina mathewstong Carlos Manuel POCT-GLUCOSE [id number] 15:48:00 Test Item Value Reference Range Interpretation Comments POC-GLUCOSE METER 183 mg/dL 70-110 H : TESTED A T [facility] 6720 (BEAKER) (test code = [facility], 153) [address]: Cant Gang Sawyer/Techni ang ID = [id number] for Marc herediabishnuLisbeth POCT-GLUCOSE [id number] 11:07:00 Test Item Value Reference Range Interpretation Comments POC-GLUCOSE METER 188 mg/dL 70-110 H : TESTED A T [facility] 6720 (BEAKER) (test code = [facility], [facility]) [address]: Cant Gang Sawyer/Techni ang ID = [id number] for Ag Lisbeth garay POCT-GLUCOSE [id number] 08:00:00 Test Item Value Reference Range Interpretation Comments POC-GLUCOSE METER 193 mg/dL 70-110 H : TESTED A T [facility] 6720 (BEAKER) (test code = [facility], [facility]) [address]391: Cant Gang Sawyer/Techni ang ID = [id number] for Ag Jesenia garayn POCT-GLUCOSE [id number] 00:26:00 Test Item Value Reference Range Interpretation Comments POC-GLUCOSE METER 221 mg/dL 70-110 H : TESTED A T [facility] 6720 (BEAKER) (test code = [facility], [facility]) 45091: Cant Gang Sawyer/Techni ang ID = [id number] for PE ML, BEKA POCT-GLUCOSE [id number] 21:04:00 Test Item Value Reference Range Interpretation Comments POC-GLUCOSE METER 203 mg/dL 70-110 H : TESTED A T [facility] 6720 (BEAKER) (test code = [facility], [facility]) 14256: Cant Gang Sawyer/Techni ang ID = [id number] for SA JEAN, PEREZ POCT-GLUCOSE [id number] 10:45:00 Test Item Value Reference Range Interpretation Comments POC-GLUCOSE METER 140 mg/dL 70-110 H : TESTED A T [facility] 6720 (BEAKER) (test code = [facility], [facility]) [address]: Cant Gang Sawyer/Techni ang ID = [id number] for CONNIE MAYORGA SARS-COV2/RT-PCR ([facility])2020-12-10 03:39:00 Test Item Value Reference Range Interpretation Comments SARS-COV2/RT-PCR (test code = Negative Negative [id number]) Negative result for this test determines that [...] the Mo SARS-CoV-2 assay.Fact Sheet for Healthcare Providers:https://www.molecular.mo/josué/RT SARS-CoV-2 HCP Fact Sheet 51- 465144.pdfFact Sheet for Healthcare Patients:https://www.molecular.mo/josué/RT SARS-CoV-2 Patient Fact Sheet EN 51-466146S3.gavBSMCABKPEBSB2785-78-99 13:09:00 Test Item Value Reference Range Interpretation Comments SODIUM (BEAKER) (test code = 381) 142 meq/L 136-145 POTASSIUM (BEAKER) (test code = 4.1 meq/L 3.5-5.1 379) CHLORIDE (BEAKER) (test code = 382) 105 meq/L 98-107 CO2 (BEAKER) (test code = 355) 25 meq/L 22-29 [facility] [id number] 13:09:00 Test Item Value Reference Range Interpretation Comments GLUCOSE RANDOM (BEAKER) (test code 161 mg/dL 70-105 H = 652) Cant Gang Sawyer ID - WILBERT FBUN AND CREATININE W/[id number] 13:09:00 Test Item Value Reference Range Interpretation Comments BLOOD UREA NITROGEN 12 mg/dL 7-21 (BEAKER) (test code = 354) CREATININE (BEAKER) 0.75 mg/dL 0.57-1.25 (test code = 358) BUN/CREAT RATIO 16 For a normal (BEAKER) (test code individu al on a = [id number]) normal diet, t he reference inter zara for the mass ra corina ranges between 12:1 and 20:1 (BUN i n mg/dL/creatinin e in mg/dL) EGFR (BEAKER) (test 96 mL/min/1.73 ESTIMA ALVARO GFR IS code = 1092) sq m NOT ACCURATE CREATININE CLEARANCE IN PREDICTING GLOMERULAR FILTRATION RATE . ESTIMATED GFR I S NOT APPLICABLE FOR DIALYSIS PATIEN TS. Cant Gang Sawyer ID - WILBERT [id number] 12:46:00 Test Item Value Reference Range Interpretation Comments HEMOGLOBIN (BEAKER) (test code = 12.0 GM/DL 11.2-15.7 410) Cant Gang Sawyer ID - [id number] 14:23:00 Test Item Value Reference Range Interpretation Comments PT (test code = PT) 13.8 s 12.0-14.7 [facility]ipNIHABAKZQD1684-17-97 14:23:00 Test Item Value Reference Range Interpretation Comments INR (test code = INR) 1.06 1 0.85-1.17 [facility]PuvwdzbNDGDEIHAFG8396-20-23 14:23:00 Test Item Value Reference Range Interpretation Comments PTT (test code = PTT) 28.8 s 22.9-35.8 [facility] CampusPjsmzswWVFULWPKEB8382-77-89 14:23:00 Test Item Value Reference Range Interpretation Comments PT (test code = PT) 13.8 s 12.0-14.7 [facility] CampusWtybjdzBJNKYWMDNY6684-63-77 14:23:00 Test Item Value Reference Range Interpretation Comments INR (test code = INR) 1.06 1 0.85-1.17 [facility] CampusUoqptxzVVIPEKXIUE9891-55-42 14:23:00 Test Item Value Reference Range Interpretation Comments PTT (test code = PTT) 28.8 s 22.9-35.8 [facility] CswypucWXBXROSXPX3040-14-58 14:23:00 Test Item Value Reference Range Interpretation Comments PT (test code = PT) 13.8 s 12.0-14.7 [facility]BNWALLKAY3688[facility]-71 14:23:00 Test Item Value Reference Range Interpretation Comments INR (test code = INR) 1.06 1 0.85-1.17 [facility]AvltsyoUQHZVWSJRF0587-25-79 14:23:00 Test Item Value Reference Range Interpretation Comments PTT (test code = PTT) 28.8 s 22.9-35.8 [facility] HospitalUqbkyisASLXJUNBDE4642-49-97 14:23:00 Test Item Value Reference Range Interpretation Comments PT (test code = PT) 13.8 s 12.0-14.7 [facility] HospitalPohwgooSEYZQXDGWR8704-74-23 14:23:00 Test Item Value Reference Range Interpretation Comments INR (test code = INR) 1.06 1 0.85-1.17 [facility] HospitalVyodsqlMMDDLZKBPU2650-36-75 14:23:00 Test Item Value Reference Range Interpretation Comments PTT (test code = PTT) 28.8 s 22.9-35.8 [facility] HospitalYaeeisrMFIRWUPYUV7066-46-53 14:23:00 Test Item Value Reference Range Interpretation Comments PT (test code = PT) 13.8 s 12.0-14.7 [facility] HospitalGvboexoBJACTXJUQE8917-76-31 14:23:00 Test Item Value Reference Range Interpretation Comments INR (test code = INR) 1.06 1 0.85-1.17 [facility] HospitalUuznhzhLODTBQWTKH7880-25-28 14:23:00 Test Item Value Reference Range Interpretation Comments PTT (test code = PTT) 28.8 s 22.9-35.8 [facility] HospitalFtuypifXKYLAZMRLM5969-40-38 14:23:00 Test Item Value Reference Range Interpretation Comments PT (test code = PT) 13.8 s 12.0-14.7 [facility] HospitalYrjmnlcARBKXTZIIN0047-75-90 14:23:00 Test Item Value Reference Range Interpretation Comments INR (test code = INR) 1.06 1 0.85-1.17 [facility] HospitalOirnsqjXIIQBIKUHJ3864-02-62 14:23:00 Test Item Value Reference Range Interpretation Comments PTT (test code = PTT) 28.8 s 22.9-35.8 [facility]2015-12-05 07:00:00Performed (03/28/15 1:00 AM) [facility] [id number] 07:00:00Negative (03/28/15 1:00 AM) [facility] QPQKY9742-20-76 07:00:000.2[facility] PSQYA5849-19-43 07:00:00Negative (03/28/15 1:00 AM)[facility] RTEMK1124-70-26 07:00:00Negative *NA*(03/28/15 1:00 AM)[facility] YEFLI6513-85-80 07:00:00Negative (03/28/15 1:00 AM)[facility] PEAOW4632-11-49 07:00:00Trace *ABN*(03/28/15 1:00 AM)[facility] ABDGJ9259-06-86 07:00:00Negative (03/28/15 1:00 AM)[facility] HLAII7237-78-06 07:00:00 Test Item Value Reference Range Interpretation Comments UA pH (test code = UA pH) 5.5 1 5.0-8.0 [facility] BVKAS2820-32-49 07:00:00Negative (03/28/15 1:00 AM) [facility] QJNLV7575-65-90 07:00:00Slight Cloudy (03/28/15 1:00 AM)[facility] NTBMP1106-70-96 07:00:00>=1.030 *ABN*(03/28/15 1:00 AM)[facility] KGZZA8137-78-70 07:00:00Yellow *NA*(03/28/15 1:00 AM)[facility] ZVOQB3585-68-01 07:00:00Performed (03/28/15 1:00 AM)[facility] RPBPG3959-50-46 07:00:00Negative (03/28/15 1:00 AM)[facility] VLOUJ3124-06-10 07:00:000.2[facility] HGZVI0280-57-55 07:00:00Negative (03/28/15 1:00 AM)[facility] WUVAO9267-22-07 07:00:00Negative *NA*(03/28/15 1:00 AM)[facility] JIYLD2353-17-06 07:00:00Negative (03/28/15 1:00 AM)[facility] THRYV2547-17-97 07:00:00Trace *ABN*(03/28/15 1:00 AM)[facility] EJQHR4217-91-10 07:00:00Negative (03/28/15 1:00 AM)[facility] OZHKP5117-47-25 07:00:00 Test Item Value Reference Range Interpretation Comments UA pH (test code = UA pH) 5.5 1 5.0-8.0 [facility] [id number] 07:00:00Negative (03/28/15 1:00 AM) [facility] AHPKD3144-81-70 07:00:00Slight Cloudy (03/28/15 1:00 AM)[facility] TGWZM1531-93-49 07:00:00>=1.030 *ABN*(03/28/15 1:00 AM)[facility] LSRAX1428-18-81 07:00:00Yellow *NA*(03/28/15 1:00 AM)[facility] TGLSK0044-28-90 07:00:00Performed (03/28/15 1:00 AM)[facility] SZINW4560-70-46 07:00:00Negative (03/28/15 1:00 AM)[facility] DIJEA7690-06-25 07:00:000.2[facility] VVFGY3530-33-81 07:00:00Negative (03/28/15 1:00 AM)[facility] QAHSR0384-58-29 07:00:00Negative *NA*(03/28/15 1:00 AM)[facility] PGCCB6207-13-99 07:00:00Negative (03/28/15 1:00 AM)[facility] JSUBX3548-65-80 07:00:00Trace *ABN*(03/28/15 1:00 AM)[facility] KUNWP0113-54-83 07:00:00Negative (03/28/15 1:00 AM)[facility] [id number] 07:00:00 Test Item Value Reference Range Interpretation Comments UA pH (test code = UA pH) 5.5 1 5.0-8.0 [facility] IUGPX2212-45-14 07:00:00Negative (03/28/15 1:00 AM) [facility] UHPNY1718-93-88 07:00:00Slight Cloudy (03/28/15 1:00 AM)[facility] BLQXV7501-20-75 07:00:00>=1.030 *ABN*(03/28/15 1:00 AM)[facility] JSRHI5702-88-66 07:00:00Yellow *NA*(03/28/15 1:00 AM)[facility] IJYWP4387-73-48 07:00:00Performed (03/28/15 1:00 AM)[facility] HWFSR6874-62-88 07:00:00Negative (03/28/15 1:00 AM)[facility] VDDGJ4841-27-98 07:00:000.2[facility] QQHAF6293-07-29 07:00:00Negative (03/28/15 1:00 AM)[facility] BVSXW8440-22-01 07:00:00Negative *NA*(03/28/15 1:00 AM)[facility] SNOSK2686-06-57 07:00:00Negative (03/28/15 1:00 AM)[facility] JPGPC2484-22-20 07:00:00Trace *ABN*(03/28/15 1:00 AM)[facility] [id number] 07:00:00Negative (03/28/15 1:00 AM)[facility] KVJMH2909-12-23 07:00:00 Test Item Value Reference Range Interpretation Comments UA pH (test code = UA pH) 5.5 1 5.0-8.0 [facility] [id number] 07:00:00Negative (03/28/15 1:00 AM) [facility] OOQTD1740-11-72 07:00:00Slight Cloudy (03/28/15 1:00 AM)[facility] FAVOU8369-37-58 07:00:00>=1.030 *ABN*(03/28/15 1:00 AM)[facility] OEOJX0565-71-53 07:00:00Yellow *NA*(03/28/15 1:00 AM)[facility] AWZVC6187-82-35 07:00:00Performed (03/28/15 1:00 AM)[facility] QEXJR5586-01-54 07:00:00Negative (03/28/15 1:00 AM)[facility] TYTJO1844-80-21 07:00:000.2[facility] BVEDF3690-69-36 07:00:00Negative (03/28/15 1:00 AM)[facility] JNTWJ3033-61-54 07:00:00Negative *NA*(03/28/15 1:00 AM)[facility] CNUTB6803-23-52 07:00:00Negative (03/28/15 1:00 AM)[facility] AHGNA4547-50-78 07:00:00Trace *ABN*(03/28/15 1:00 AM)[facility] TTHRI9964-15-77 07:00:00Negative (03/28/15 1:00 AM)[facility] VHDMR8428-64-82 07:00:00 Test Item Value Reference Range Interpretation Comments UA pH (test code = UA pH) 5.5 1 5.0-8.0 [facility] FBLPM5920-31-28 07:00:00Negative (03/28/15 1:00 AM) [facility] XNJWM3042-09-87 07:00:00Slight Cloudy (03/28/15 1:00 AM)[facility] AGWHC0651-07-68 07:00:00>=1.030 *ABN*(03/28/15 1:00 AM)[facility] OTNGR4147-90-26 07:00:00Yellow *NA*(03/28/15 1:00 AM)[facility] RMRKZ6491-05-49 07:00:00Performed (03/28/15 1:00 AM)[facility] XVPYT5037-22-74 07:00:00Negative (03/28/15 1:00 AM)[facility] AQOWX7287-00-78 07:00:000.2[facility] IALXB2575-38-22 07:00:00Negative (03/28/15 1:00 AM)[facility] QNTTT4526-14-84 07:00:00Negative *NA*(03/28/15 1:00 AM)[facility] [id number] 07:00:00Negative (03/28/15 1:00 AM)[facility] ISASC6252-55-24 07:00:00Trace *ABN*(03/28/15 1:00 AM)[facility] YXIVN1232-50-07 07:00:00Negative (03/28/15 1:00 AM)[facility] YTRWL0044-61-59 07:00:00 Test Item Value Reference Range Interpretation Comments UA pH (test code = UA pH) 5.5 1 5.0-8.0 [facility] FJKST8883-11-76 07:00:00Negative (03/28/15 1:00 AM) [facility] DBQCN5333-12-49 07:00:00Slight Cloudy (03/28/15 1:00 AM)[facility] JVMBL4709-80-20 07:00:00>=1.030 *ABN*(03/28/15 1:00 AM)[facility] FKUGW8066-53-27 07:00:00Yellow *NA*(03/28/15 1:00 AM)[facility]annCHEM JOCKF0992-30-11 06:33:90425Eocefjog HermannCHEM HILZR1530-98-75 06:33:0014[facility]annCHE[facility] FBTWJ9631-35-27 06:33:007.8 [facility] WPUWH6960-82-80 06:33:001.2[facility]annCHEM PANEL 2015-03-28 06:33:003.0[facility]annCHE[facility] WMYIW9005-30-04 06:33:0087[facility]annCHE[facility] LOTPV5886-61-47 06:33:41659Fedleaip HermannCHEM ESYFD2484-68-78 06:33:000.3[facility]annCHE[facility] ZXULG6182-96-84 06:33:0026[facility]annCHE[facility] VXGJV6130-69-64 06:33:008[facility]CHE[facility] DAQVF7457-54-70 06:33:003.6 [facility] OKZGV5138-19-95 06:33:008.9[facility]annCHEM PANEL 2015-03-28 06:33:006.6[facility]annCHE[facility] QVVGC3269-05-57 06:33:43273Crrwvojw HermannCHEM FJBTJ1069-14-66 06:33:0028[facility]annCHEM EZKSP2725-37-44 06:33:000.88[facility]annCHEM CUAEY4254-89-97 06:33:06169Lmvkzvjb HermannCHEM YOEUN1097-00-10 06:33:003.8[facility]annCHEM EZXXI5514-22-64 06:33:0012 [facility]annCHEM ORLYM9978-47-08 06:33:77113Xzppodei HermannHEMATOLOGY 2015-03-28 06:33:0050.4[facility] AbgwbbpRQWSASXSWO3807-75-24 06:33:007.0[facility] FjnsdzcRKSQXGLYCW8425-40-90 06:33:003.9[facility] XygfrefFUOJTOMAOB9493-86-94 06:33:007.9[facility] ZcyaqhxSCNBIILLAB2613-52-11 06:33:0033.8[facility] Jah HMNLGTKSVO9366-85-99 06:33:000.9[facility] DarwulnHALFKFBHTE7971-26-10 06:33:000.5 [facility] YwcwsihTDBBLHVGSG4088-59-78 06:33:000.6[facility]annHEMATOLOGY 2015-03-28 06:33:000.1[facility] IrbwoopCTDAYVXABN0083-93-09 06:33:002.6[facility] PprtwflXIIPEZHODK7534-15-21 06:33:0013.3[facility] CywdqvyYKNWWGVYOY7609-77-24 06:33:004.70[facility] ZyantbrJTCTBLFHKK4780-80-25 06:33:007.7[facility] Jah HWDHUFREAU4564-42-10 06:33:0013.0[facility] GwpficlZAEQIKLMPG0024-65-42 06:33:00 32.5[facility]orial QkypmzxZAHIYTQVUF1080-89-36 06:33:0040.9[facility] 2015-03-28 06:33:00 Test Item Value Reference Range Interpretation Comments MCH (test code = MCH) 28.3 pg 27.0-31.0 [facility] CutfedrVQHXHLUFHP4740-33-76 06:33:0087.0[facility]annHEMATOLOGY 2015-03-28 06:33:008.2[facility] PlwclsdURBFEBJFNL5579-46-29 06:33:13694Ivocopcx HermannCHEM AKLMK1530-55-86 06:33:39945Eugvnuuv HermannCHEM OYNDI4394-20-25 06:33:0014[facility]annCHEM BQQSF9417-06-32 06:33:007.8[facility]annCHE[facility] YSOXW8659-33-74 06:33:001.2[facility]annCHE[facility] DYXIG2566-86-02 06:33:003.0 [facility] OPIWD9176-23-29 06:33:0087[facility]annCHEM PANEL 2015-03-28 06:33:04587Rdszoxfc HermannCHEM KUOHD5108-65-02 06:33:000.3[facility]annCHEM RVQFI8109-37-54 06:33:0026[facility]annCHEM IZDBH9734-97-42 06:33:008[facility]annCHEM TSIIO3518-81-79 06:33:003.6[facility]annCHEM FLGNY2120-56-14 06:33:008.9[facility]annCHEM WVQNQ5885-09-16 06:33:006.6 [facility]CHE[facility] HNBTZ6734-94-18 06:33:00676Hqmjndjc HermannCHEM PANEL 2015-03-28 06:33:0028[facility]annCHEM OFFXK5254-94-68 06:33:000.88[facility]annCHEM DAPSO5272-25-47 06:33:05768Zdizghad HermannCHEM BHKXV8850-29-42 06:33:003.8[facility]annCHE[facility] MMJET8483-71-32 06:33:0012[facility]annCHEM APZGO5044-47-35 06:33:79648Fjibrydd IgpwqogYCBRCNQAVS6487-06-19 06:33:0050.4 [facility] OokzxwrYLQLNASAVK6825-24-65 06:33:007.0[facility]annHEMATOLOGY 2015-03-28 06:33:003.9[facility] YzxexekMBAQZEQMPX4734-12-74 06:33:007.9[facility] VhfdwfkVMBFXZSGHR3192-99-35 06:33:0033.8[facility] FwwwkzaNIDYLEQHLT6891-72-08 06:33:000.9[facility] BbwyjdnLWTOBSFNKT6963-49-89 06:33:000.5[facility] Jah GAUJPUAQEK3578-65-31 06:33:000.6[facility] WqjwzcfVILYYESGMU9784-67-76 06:33:000.1 [facility] CqhxvtqYVFDKOWYYB4692-39-69 06:33:002.6[facility]annHEMATOLOGY 2015-03-28 06:33:0013.3[facility] ByscbfrKKAFHSUPUB5448-67-58 06:33:004.70[facility] AwxeopzAPIBEQJOPM1976-71-56 06:33:007.7[facility] OnmygczAOPVTXWCVV8097-77-59 06:33:0013.0[facility] ZccihvaSCKWYMNAWG5228-58-95 06:33:0032.5[facility] [place] AGSXTOHLFH8793-53-82 06:33:0040.9[facility] CwfwifcGDEDMKNFIL1775-49-22 06:33:00 Test Item Value Reference Range Interpretation Comments MCH (test code = MCH) 28.3 pg 27.0-31.0 [facility] DblppbhSMCHOMFTNW1218-40-17 06:33:0087.0[facility]annHEMATOLOGY 2015-03-28 06:33:008.2[facility] GvcdkpgLTOVEBXKGD6837-86-42 06:33:47054Cdkozvbu HermannCHEM OAFIF1452-35-95 06:33:92561Jxbvvwfn HermannCHEM RNGRH4160-74-78 06:33:0014[facility] HermannCHEM CDBPY3559-35-41 06:33:007.8[facility] HermannCHEM VIFWL1042-26-98 06:33:001.2[facility] HermannCHEM XYWFZ0561-27-37 06:33:003.0 [facility]annCHEM FFDRW0971-52-15 06:33:0087[facility]annCHEM PANEL 2015-03-28 06:33:67988Vnligrmg HermannCHEM VIDIT0729-26-43 06:33:000.3[facility] HermannCHEM WYDSZ0486-55-97 06:33:0026[facility] HermannCHEM ERZMW6715-90-43 06:33:008[facility] HermannCHEM TVJJG2662-05-85 06:33:003.6[facility] HermannCHEM JURDB6582-92-46 06:33:008.9[facility] HermannCHEM QEZBJ6940-46-83 06:33:006.6 [facility]annCHEM KBCRO7525-12-10 06:33:85800Hvrljhkx HermannCHEM PANEL 2015-03-28 06:33:0028[facility] HermannCHEM VLVYO3168-45-13 06:33:000.88[facility] HermannCHEM PTAKK0361-99-16 06:33:95872Qcfgzzrh HermannCHEM PLGCT6015-99-78 06:33:003.8[facility] HermannCHEM UJJMY8490-88-77 06:33:0012[facility] HermannCHEM IYREM9831-69-23 06:33:27225Exostazo ObeverpISACLCADNG5151-56-71 06:33:0050.4 [facility] BtuxlnyKWMKSAGZUJ3874-35-48 06:33:007.0[facility] HermannHEMATOLOGY 2015-03-28 06:33:003.9[facility] GqpelwfBFCEZIWEVW4118-57-53 06:33:007.9[facility] AutnyirJUBDXQBEMB1459-43-25 06:33:0033.8[facility] XbnhoiqTQAMIGYYEA3218-94-85 06:33:000.9[facility] SpfqbziYHFEWKYKXG8067-97-64 06:33:000.5[facility] Jah HFZDSTCUSU0632-46-92 06:33:000.6[facility] ByslgwjBUWFMLRSXY6060-14-00 06:33:000.1 [facility] OnvgcdqRDEBQLSYZP0882-85-32 06:33:002.6[facility]annHEMATOLOGY 2015-03-28 06:33:0013.3[facility] UwjgfioRTZZFTKGUT8590-94-94 06:33:004.70[facility] EhoemcfFNQPTNFIOR3645-92-64 06:33:007.7[facility] DfczgerGOASEUITFJ3892-70-86 06:33:0013.0[facility] ItkbhnlOFLCVHIFBW2364-48-67 06:33:0032.5[facility] [place] VWGPBCRGNP0645-98-87 06:33:0040.9[facility] SdlbxywBDJYAXCSXN6869-78-37 06:33:00 Test Item Value Reference Range Interpretation Comments MCH (test code = MCH) 28.3 pg 27.0-31.0 [facility] KlueppsINGAPLMDJL9786-53-50 06:33:0087.0[facility]annHEMATOLOGY 2015-03-28 06:33:008.2[facility] BznnefoUBTBLBFSCX5175-96-30 06:33:41549Harqhgbe HermannCHEM MPJPO3950-45-46 06:33:40468Wtsqjhck HermannCHEM TFIFC2609-15-27 06:33:0014[facility] HermannCHEM QAIAZ4126-21-87 06:33:007.8[facility] HermannCHEM WVELV7651-49-19 06:33:001.2[facility] HermannCHEM HJXBW3882-63-61 06:33:003.0 [facility]annCHEM NNOBQ4384-78-75 06:33:0087[facility] HermannCHEM PANEL 2015-03-28 06:33:15690Trmgkamf HermannCHEM HUMFT6695-09-20 06:33:000.3[facility] HermannCHEM DQRHD7709-64-75 06:33:0026[facility] HermannCHEM QBVBC6711-38-81 06:33:008[facility] HermannCHEM RMEKO6105-05-19 06:33:003.6[facility] HermannCHEM RCHIY6607-19-71 06:33:008.9[facility] HermannCHEM DLEJO2325-49-16 06:33:006.6 [facility]annCHEM UXFXH7540-43-17 06:33:36934Fzokdfmz HermannCHEM PANEL 2015-03-28 06:33:0028[facility] HermannCHEM BEQAE2132-17-10 06:33:000.88[facility] HermannCHEM YUKGP7020-75-01 06:33:80559Zwdxaxmb HermannCHEM ZTCGJ1304-74-62 06:33:003.8[facility] HermannCHEM CPSNF6593-81-35 06:33:0012[facility] HermannCHEM PWNMD3490-94-99 06:33:23356Ucwaoatm RxqbifjMYSBILCSGE8313-27-69 06:33:0050.4 [facility] EfuzyudKGVDNYWWUG5875-55-19 06:33:007.0[facility] HermannHEMATOLOGY 2015-03-28 06:33:003.9[facility] TjmrzdbRKGOAUMRJW5072-19-41 06:33:007.9[facility] KfnloduHZKKCIUYBP1415-96-59 06:33:0033.8[facility] FpqgmzmVZXHVACDKF9208-74-86 06:33:000.9[facility] IbhkgbeBJDJMLETFZ7086-95-72 06:33:000.5[facility] DBGIRBCVCY3278-83-74 06:33:000.6[facility] TchyldvPEYUJYVWGK4213-81-96 06:33:000.1 [facility] VdtvgolMLRZZADADR4248-21-32 06:33:002.6[facility] HermannHEMATOLOGY 2015-03-28 06:33:0013.3[facility] AomxlnpKLWOAZXPBK9889-75-43 06:33:004.70[facility] GtetzrfBSCPFJQWZZ6294-33-97 06:33:007.7[facility] NqcmimyUICRKPBCQJ4115-76-86 06:33:0013.0[facility] QgoalalLCOVVBSCNC8298-99-21 06:33:0032.5[facility] FLHWZULUBO9082-81-08 06:33:0040.9[facility] GjdvnitYSWBUXLDAC8310-64-15 06:33:00 Test Item Value Reference Range Interpretation Comments MCH (test code = MCH) 28.3 pg 27.0-31.0 [facility] IbvcfjcGSOCUJZHKV5018-78-01 06:33:0087.0[facility] HermannHEMATOLOGY 2015-03-28 06:33:008.2[facility] TdhseodVGNUWKDBUW7573-52-00 06:33:39165Oadkfgdn HermannCHEM QSNAZ8113-34-95 06:33:02481Xzoiqpmz HermannCHEM PXVRT4813-78-42 06:33:0014[facility] HermannCHEM QYCNM1939-04-07 06:33:007.8[facility] HermannCHEM MXBDB1456-43-56 06:33:001.2[facility] HermannCHEM OWPNQ2985-44-20 06:33:003.0 [facility]annCHEM XRUVJ8434-71-52 06:33:0087[facility]annCHEM PANEL 2015-03-28 06:33:17175Metzhhmu HermannCHEM WOJSA2979-51-07 06:33:000.3[facility]annCHEM VNQXW7808-55-49 06:33:0026[facility]annCHEM HTPME5916-27-30 06:33:008[facility]annCHEM MLTPR3891-80-81 06:33:003.6[facility]annCHEM UWXMK4167-52-87 06:33:008.9[facility] HermannCHEM VEJYO3079-17-97 06:33:006.6 [facility]annCHEM MHRHE3453-77-94 06:33:35501Gfwfvuwt HermannCHEM PANEL 2015-03-28 06:33:0028[facility]annCHEM GDQVP5277-49-62 06:33:000.88[facility] HermannCHEM OHIOD7469-54-14 06:33:22506Msohzlaf HermannCHEM FSJQU0980-01-11 06:33:003.8[facility]annCHEM UMJQH1433-52-44 06:33:0012[facility]annCHEM LGYKE7695-93-80 06:33:00129Qzzvcozi QrdvwojDGGYIKFHGH5438-08-19 06:33:0050.4 [facility] EuakpomJGRUUIUNHU5228-53-18 06:33:007.0[facility]annHEMATOLOGY 2015-03-28 06:33:003.9[facility] LbseluuAGBCUTOXIX3787-25-52 06:33:007.9[facility] OzkcuzpTYRASPSNXW0279-84-11 06:33:0033.8[facility] RdxmfioFBVHHSPAEA4455-96-25 06:33:000.9[facility] RfpnjpyXDMOZWTUQY3616-05-78 06:33:000.5[facility] ADHCAJBPCR5532-49-94 06:33:000.6[facility] CbppyixEHAGPDZHAY3287-13-53 06:33:000.1 [facility] WhcvrfxJRDGAWRKAW5465-29-82 06:33:002.6[facility]annHEMATOLOGY 2015-03-28 06:33:0013.3[facility] FowvjfyBXEZCTTUSF8770-79-76 06:33:004.70[facility] EchpnwpNQZSCIYWYR8871-77-95 06:33:007.7[facility] BcoybquZVYSVRZEXC2135-02-51 06:33:0013.0[facility] XylmwnxOGHHTUDDYQ8903-59-39 06:33:0032.5[facility] KIWIPLGPQO9784-83-36 06:33:0040.9[facility] TdulhzvJCPVSGBEDE9997-01-15 06:33:00 Test Item Value Reference Range Interpretation Comments MCH (test code = MCH) 28.3 pg 27.0-31.0 [facility] PakxqkrVSICQNPBCS3062-50-85 06:33:0087.0[facility]annHEMATOLOGY 2015-03-28 06:33:008.2[facility] FmnyyohWXMVOPEVQW9318-25-03 06:33:31422Plveussk HermannCHEM WDSIX7433-60-83 06:33:94083Vkwepnar HermannCHEM MZZOK0418-69-45 06:33:0014[facility] HermannCHEM GSDYJ6774-90-17 06:33:007.8[facility]annCHEM BABBJ4105-21-37 06:33:001.2[facility] HermannCHEM GJKIU2583-06-40 06:33:003.0 [facility]annCHEM VTERH2963-19-90 06:33:0087[facility] HermannCHEM PANEL 2015-03-28 06:33:28327Xjohhsxj HermannCHEM YIZOR1996-91-51 06:33:000.3[facility] HermannCHEM EGEGH2294-02-94 06:33:0026[facility] HermannCHEM CIDWG6111-23-79 06:33:008[facility]annCHEM EXUFN6468-65-36 06:33:003.6[facility] HermannCHEM LDUXE7777-03-03 06:33:008.9[facility] HermannCHEM MSCVG5465-97-72 06:33:006.6 [facility]annCHEM ZNSBX9803-95-10 06:33:77368Lzqpgnih HermannCHEM PANEL 2015-03-28 06:33:0028[facility] HermannCHEM ESJNF4452-12-24 06:33:000.88[facility] HermannCHEM OXBGH1160-77-12 06:33:29825Evftpqii HermannCHEM JNHLD3417-24-76 06:33:003.8[facility] HermannCHEM XCTZJ3433-60-22 06:33:0012[facility]annCHEM MTIZT8068-26-11 06:33:03252Ybjiptpc VcpetbaGRGOYFVNME3613-04-08 06:33:0050.4 [facility] AlrlsvbNODZIDIWPF1619-24-71 06:33:007.0[facility]annHEMATOLOGY 2015-03-28 06:33:003.9[facility] WbsiajoQYVWGFKWYW5303-42-83 06:33:007.9[facility] OeqhtkmHYRNNJHOAF1452-40-33 06:33:0033.8[facility] TurbmnyUMRZNNZSJX4044-15-79 06:33:000.9[facility] LcjcezyWAWERJWJBK3743-03-08 06:33:000.5[facility] [place] WRSMALAFPY0018-83-37 06:33:000.6[facility] EaokhqoTHRCWFOZFH5925-84-26 06:33:000.1 [facility] NotmkxrGTDOZWVBHR2949-34-24 06:33:002.6[facility]annHEMATOLOGY 2015-03-28 06:33:0013.3[facility] WllcdwtSWOUNEKZKK2920-11-22 06:33:004.70[facility] TvnjubcTAORRPEZRM0320-35-49 06:33:007.7[facility] AcsztdnVGNVIOUJRO1606-68-58 06:33:0013.0[facility] YuntuftULZNUOADMS8969-73-40 06:33:0032.5[facility] [place] QTLVZGPVKM9241-96-91 06:33:0040.9[facility] ApmbgzqDPFITOTIYD0857-02-12 06:33:00 Test Item Value Reference Range Interpretation Comments MCH (test code = MCH) 28.3 pg 27.0-31.0 [facility] XoqxykzLHQSIGFROL6081-73-74 06:33:0087.0[facility] HermannHEMATOLOGY 2015-03-28 06:33:008.2[facility] TphkzyeEITKSUSZIW6294-91-77 06:33:16618Hjxrhzup [place]
--- NOTE | 2021-08-10 18:25 | ER ---
Nurse's Notes [facility] Name: Martha Patel Age: 61 yrs Sex: Female : 1960 Arrival Date: 08/10/2021 Time: 15:45 Bed Waiting Private MD: Diagnosis: Secondary malignant neoplasm of brain Presentation: 08/10 15:47 Chief complaint: EMS states: was here last Monday and was diagnosed with bells palsy, iw has gotten worse since then, light sensitivity , nausea. Coronavirus screen: At this time, the client does not indicate any symptoms associated with coronavirus-19. Risk Assessment: Do you want to hurt yourself or someone else? Patient reports no desire to harm self or others. Onset of symptoms was August 10, 2021. 15:47 Method Of Arrival: EMS: [facility] iw 15:47 Acuity: LISANDRO 3 iw 15:48 Ebola Screen: Patient negative for fever greater than or equal to 101.5 degrees iw Fahrenheit, and additional compatible Ebola Virus Disease symptoms Patient denies exposure to infectious person. Patient denies travel to an Ebola-affected area in the 21 days before illness onset. No symptoms or risks identified at this time. Initial Sepsis Screen: Does the patient meet any 2 criteria? No. Patient's initial sepsis screen is negative. Does the patient have a suspected source of infection? No. Patient's initial sepsis screen is negative. 15:51 Note was sent home with T3 is also having pain to right side of neck and shoulder. iw Historical: - Allergies: 15:48 No Known Allergies; iw - Social history:: Patient/guardian denies using alcohol, street drugs, The patient lives. - Family history:: not pertinent. Vital Signs: 15:50 BP 111 / 72; Pulse 108; Resp 16; Temp 97.6; Pulse Ox 100% on R/A; iw ED Course: 15:45 Patient arrived in ED. as 15:48 Triage completed. iw 15:51 Arm band placed on. iw 17:48 Jono Wren MD is Attending Physician. ma2 18:23 Leonora Kitchen MD is Referral Physician. ma2 18:25 Zoe Argueta RN is Primary Nurse. ss Administered Medications: No medications were administered Outcome: 18:24 Discharge ordered by . ma2 19:12 Patient left the ED. iw Signatures: Malena Vasquez Irene, RN RN iw Smirch, Shelby, RN RN ss Jono Wren MD MD ma2
--- NOTE | 2021-08-10 18:25 | EDPHYS ---
Physician Documentation [facility] Name: Martha Patel Age: 61 yrs Sex: Female : 1960 Arrival Date: 08/10/2021 Time: 15:45 Bed Waiting Private MD: ED Physician Jono Wren HPI: 08/10 18:19 This 61 yrs old Black Female presents to ER via EMS with complaints of Weakness, Nausea.ma2 18:19 This is a 61-year-old female with recurrent breast cancer, mets to brain, she was here ma2 few days ago with dizziness, had a CT head that showed enhancing lesion so she was transferred to higher level [facility] care to [facility], there they did an MRI that shows enhancing lesion in cerebellar area and parietal cerebrum consistent with brain mets, she was given follow-up with her oncologist Dr. Yun, with whom she is scheduled tomorrow morning. She also had full blood work that all came back unremarkable including CBC CMP cholesterol profile. Patient presented to ER today again because she stated that she still feels dizzy and would like stronger pain medicine for headache which she has been having for a long time and she takes Tylenol 3 for it. Patient states she does not have any new symptoms. I advised patient that we can do blood work including CBC CMP UA to rule out emergency, she does not have any new neurodeficit and just had an MRI done 3 days ago that shows brain mets. Her dizziness and nausea are chronic and unchanged and likely due to the brain mets.. Patient has been able to eat and drink today and had your normal urinary output with normal color. Historical: - Allergies: 15:48 No Known Allergies; iw - Social history:: Patient/guardian denies using alcohol, street drugs, The patient lives. - Family history:: not pertinent. ROS: 18:19 Constitutional: Negative for fever, chills, and weight loss. ma2 18:19 All other systems are negative. Exam: 18:19 Constitutional: This is a well developed, well nourished patient who is awake, alert, ma2 and in no acute distress. Head/Face: Normocephalic, atraumatic. Eyes: Pupils equal round and reactive to light, extra-ocular motions intact. Lids and lashes normal. Conjunctiva and sclera are non-icteric and not injected. Cornea within normal limits. Periorbital areas with no swelling, redness, or edema. ENT: Nares patent. No nasal discharge, no septal abnormalities noted. Tympanic membranes are normal and external auditory canals are clear. Oropharynx with no redness, swelling, or masses, exudates, or evidence of obstruction, uvula midline. Mucous membranes moist. Neck: Trachea midline, no thyromegaly or masses palpated, and no cervical lymphadenopathy. Supple, full range of motion without nuchal rigidity, or vertebral point tenderness. No Meningismus. Chest/axilla: Normal chest wall appearance and motion. Nontender with no deformity. No lesions are appreciated. Cardiovascular: Regular rate and rhythm with a normal S1 and S2. No gallops, murmurs, or rubs. Normal PMI, no JVD. No pulse deficits. Respiratory: Lungs have equal breath sounds bilaterally, clear to auscultation and percussion. No rales, rhonchi or wheezes noted. No increased work of breathing, no retractions or nasal flaring. Abdomen/GI: Soft, non-tender, with normal bowel sounds. No distension or tympany. No guarding or rebound. No evidence of tenderness throughout. Skin: Warm, dry with normal turgor. Normal color with no rashes, no lesions, and no evidence of cellulitis. MS/ Extremity: Pulses equal, no cyanosis. Neurovascular intact. Full, normal range of motion. Neuro: Awake and alert, GCS 15, oriented to person, place, time, and situation. Cranial nerves II-XII grossly intact. Motor strength 5/5 in all extremities. Sensory grossly intact. Cerebellar exam normal. Normal gait. Vital Signs: 15:50 BP 111 / 72; Pulse 108; Resp 16; Temp 97.6; Pulse Ox 100% on R/A; iw MDM: 18:19 Data reviewed: vital signs, nurses notes, EMS record. Counseling: I had a detailed ma2 discussion with the patient and/or guardian regarding: the historical points, exam findings, and any diagnostic results supporting the discharge/admit diagnosis, the presence of at least one elevated blood pressure reading (>120/80) during this emergency department visit, the need for outpatient follow up. Response to treatment: the patient's symptoms have markedly improved after treatment. ED course: Symptoms are chronic and likely due to brain mets please see HPI for more details patient had MRI done 3 days ago that shows brain mets and she has follow-up tomorrow with oncologist for further evaluation and management. I offered repeating blood work however patient declined and she said that she just had blood work 2 days ago. . 18:24 Patient medically screened. ma2 Administered Medications: No medications were administered Disposition Summary: 08/10/21 18:24 Discharge Ordered Location: Home ma2 Condition: Stable ma2 Diagnosis - Secondary malignant neoplasm of brain ma2 Followup: ma2 - With: Leonora Kitchen MD - When: Tomorrow - Reason: If symptoms return, Continuance of care Discharge Instructions: - Discharge Summary Sheet ma2 - Metastatic Cancer ma2 Forms: - Medication Reconciliation Form ma2 - Thank You Letter ma2 - Antibiotic Education ma2 - Prescription Opioid Use ma2 Signatures: Hollie Rachel RN RN iw Smirch, Shelby, RN RN ss Alzahri, Mohammad, MD MD ma2
[2021-08-10] MEDS ORDERED: HYDROCODONE/APAP 7.5/325 MG TAB ONE (18:28)
[2021-08-10 22:28] VITALS: BP 111/72; TEMP 97.6; O2SAT 100
== END 2021-08-10 19:12 | disposition home or self-care (01) ==
LOC: ER 15:42
DX: C79.31 Secondary malignant neoplasm of brain (principal); R53.1 Weakness; R51.9 Headache, unspecified; Z85.3 Personal history of malignant neoplasm of breast
CPT/HCPCS: 99282

== ENCOUNTER 2021-08-13 12:36 | Inpatient (IN) | payer OTHER, SELFPAY ==
--- OUTSIDE RECORDS SUMMARY | 2021-08-13 12:43 | XMS REPORT | Continuity of Care Document ---
:1960 Author Organization [facility] t Address [address] [place] [address] Care Team Providers Name Role Phone TANYA [...] Number Effective Date Expiration Date Leonard munguia [facility] [id number] 2021 00:00:00 WELLMED DUAL [id number] COMPLETE SNP [facility] MEDICARE PART A [id number] \\T\\ B - MEDICARE [facility] [id number] [facility] MEDICARE A B [id number] 2020 00:00:00 Problems Condition Condition Condition Status Onset Resolution Last Treating Co mments Source Name Details Category Date Date Treatment Clinician Date High risk High risk Disease Active [facility] medication medication 11-26 Co llege use use 00:00: of 00 Medicin e Chemothera Chemothera Disease Active B purnima py py 05 College follow-up follow-up 00:00: of examinatio examinatio 00 Me dicin n n e Pre-operat Pre-operat Disease Active B purnima chris chris 05 [place] cardiovasc cardiovasc 00:00: of ular ular 00 Medicin examinatio examinatio e n n History of History of Disease Active B purnima CVA CVA 11-26 College (cerebrova (cerebrova 00:00: of scular scular 00 Medicin accident) accident) e Anxiety Anxiety Disease Active [facility] 6 College 00:00: of 00 Medicin e Abnormal Abnormal Disease Active [facility] mammogram 09-25 Beatrice ege 00:00: of 00 Medicin e Breast Breast Disease Active [facility] pain, left pain, left 09-25 Co llege 00:00: of 00 Medicin e Hyperglyce Hyperglyce Disease Active B purnima steele 09-25 College 00:00: of 00 Medicin e Stroke, Stroke, Disease Active [facility] acute, acute, 6 [place] thrombotic thrombotic 00:00: of (HCCode) (HCCode) 00 Medici n e Uncontroll Uncontroll Disease Active 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 ege diabetes diabetes 00:00: of mellitus mellitus 00 Medici n with with e hyperglyce hyperglyce ivette ivette (HCCode) (HCCode) Breast Breast Disease Active [facility] pain, left pain, left 09-25 Co llege 00:00: of 00 Medicin e Glaucoma Glaucoma Disease Active [facility] r 604 College 00:00: of 00 Medicin e History of History of Disease Active [facility] malignant malignant 09-25 Beatrice ege neoplasm neoplasm 00:00: of of breast of breast 00 Medi abraham e Hypertensi Hypertensi Disease Active B [facility] on on 09-25 College 00:00: of 00 Medicin e Obesity Obesity Disease Active [facility] (BMI (BMI 09-25 College 30-39.9) 30-39.9) 00:00: of 00 Medicin e Nodule of Nodule of Disease Active Rachel timmy finger of finger of 09-25 Beatrice ege both hands both hands 00:00: of 00 Medicin e CHEMOTHERA Diagnosis Active 2020-01-20 Memoria PY 01-09 12:08:00 l COMPLETED 00:00: [place] CHEMOTHERA 00 PY COMPLETED [facility] Breast Disease Active [facility] cancer cancer 06-30 [place] (HCCode) (HCCode) 00:00: of 00 Medicin e BREAST Diagnosis Active 2019-07-09 Mem oria CANCER 06-30 14:53:00 l BREAST 00:00: [place] CANCER 00 Active 07/01/2019 [facility] [place] SCIATICA Diagnosis Active 2016-042017-02-14 M emoria TYPE PAIN 0-24 14:00:00 l SCIATICA 00:00: John n TYPE PAIN 00 Active 02/14/2017 [facility] BOILS Diagnosis Active 2016-09-07 Mem oria 5-16 00:23:00 l BOILS 00:00: Jah 00 Active 09/06/2016 [facility] Jah ABDOMINAL Diagnosis Active 2014-042015-05-05 Memoria PAIN 2-04 10:43:00 l 00:00: Jah ABDOMINAL 00 PAIN Active 03/27/2015 [facility] COPD COPD Disease Active 2012-04 [facility] (chronic (chronic 05-12 Colleg e obstructiv obstructiv 00:00: of e e 00 Medicin pulmonary pulmonary e disease) disease) (HCCode) (HCCode) COPD Diagnosis Active 2012-042013-03-15 Mem oria - 08:29:00 l COPD 00:00: [place] 00 Active 03/12/2013 [facility] Cyst of Problem Resolve 2017-02-17 Mem oria ovary d 03:03:15 l (disorder) Cyst of Her nix ovary (disorder) Resolved Problem 02/17/2017 [place], [facility] History of Past Illness Condition Condition Condition Status Onset Resolution Last Treating Co mments Source Name Details Category Date Date Treatment Clinician Date Low back Problem 2016-2017-02-17 2017-02-17 Memoria pain 0-24 03:03:15 03:03:15 l Low back 05:00: John n pain 00 02/14/2017 02/17/2017 [place] Pain in Problem 2016-2017-02-17 2017-02-17 Memoria left hip 0-24 03:03:15 03:03:15 l Pain in 05:00: [place] left hip 00 7 02/17/2017 [place] Sciatica, Problem 2016-2017-02-17 2017-02-17 Memoria unspecifie 0-24 03:03:15 03:03:15 l d side 05:00: [place] Sciatica, 00 unspecifie d side 02/14/2017 02/17/2017 [place] Cutaneous Problem 2016-2016-09-10 2016-09-10 Memoria abscess, 09-07 03:38:26 03:38:26 l unspecifie 05:00: John n d Cutaneous 00 abscess, unspecifie d 09/07/2016 09/10/2016 [place] Discharge Problem 2014-042015-03-31 2015-03-31 Memoria Diagnosis: 2-05 02:33:03 02:33:03 l Morbid 06:00: Jah obesity Discharge 00 Diagnosis: Morbid obesity 03/28/2015 03/31/2015 [place] Discharge Problem 2014-042015-03-31 2015-03-31 Memoria Diagnosis: 2-05 02:33:03 02:33:03 l Pain, 06:00: [place] abdominal, Discharge 00 nonspecifi Diagnosis: c Pain, abdominal, nonspecifi c 03/28/2015 03/31/2015 [facility] Allergies, Adverse Reactions, Alerts Allergy Allergy Status Severity Reaction(s) Onset Inactive Treating Comm ents Source Name Type Date Date Clinician NO KNOWN Allergy Active [facility]GIE S Social History Social Habit Start Date Stop Date Quantity Comments Source History of Cigarette Smoker [facility] Rene olletiffanie tobacco use of Medicine Exposure to Not sure [facility] Ken mera SARS-CoV-2 of Medicine (event) Alcohol intake 2021-07-02 2021-07-02 Ex-drinker [facility] Col lege 00:00:00 00:00:00 (finding) of Medicine Tobacco use and 2020-09-25 2020-09-25 Smokeless tobacco Ba or [place] exposure 00:00:00 00:00:00 non-user of Medicine Social History 2015-03-28 2015-03-28 Zeferino blount 06:13:28 06:13:28 [birth year] [facility] Co llege 00:00:00 00:00:00 of Medicine Smoking Status Start Date Stop Date Source Smokes tobacco daily 2020-09-25 00:00:00 [facility] Medications Ordered Filled Start Stop Current Ordering Indication Dosage Frequency Signature Comments Components Source Medication Medication Date Date Medication? Clinician (SIG) Name Name Lancets Yes Maricel Constantino 311 [facility] (ACCU-CHEK 13:03: Lancet of FASTCLIX 17 Drum Medicin LANCET) KIT e gabapentin Yes gabapentin B [facility] (NEURONTIN) 11 600 mg Colleg e 600 MG 13:03: tablet of tablet 17 Medicin e hydrocodone Yes hydrocodon [facility] -acetaminop 07-02 e 10 College hen (NORCO) 13:03: mg-acetami of 10-325 MG 17 nophen 325 Medi abraham per tablet mg tablet e Budesonide- Yes 1 puffs Rachel timmy Formoterol 07-02 College Fumarate 13:03: of 160-4.5 17 Medicin MCG/ACT e AERO enalapril Yes enalapril Rachel timmy (VASOTEC) 07-02 maleate 10 [facility] ege 10 MG 13:03: mg tablet of tablet 17 Medicin e metoprolol Yes metoprolol B a[facility] (LOPRESSOR) 11 tartrate Beatrice ege 25 MG 13:03: 25 mg of tablet 17 tablet Medicin e ondansetron Yes ondansetro [place] (ZOFRAN) 4 3-11 n HCl 4 mg Col lege MG tablet 13:03: tablet of 17 Medicin e Lancets Yes Maricel hall MiscTiffany 9-03 [facility] (ACCU-CHEK 11:56: Lancet of FASTCLIX 36 Drum Medicin LANCET) KIT e gabapentin Yes gabapentin B [facility] (NEURONTIN) 12-25 600 mg Colleg e 600 MG 11:56: tablet of tablet 36 Medicin e hydrocodone Yes hydrocodon [facility] -acetaminop 12-25 e 10 [facility]) 11:56: mg-acetami of 10-325 MG 36 nophen 325 Medi abraham per tablet mg tablet e Budesonide- Yes 1 puffs Rachel timmy Formoterol 12-25 [place] Fumarate 11:56: of (SYMBICORT) 36 Medicin 160-4.5 e MCG/ACT AERO enalapril Yes enalapril Rachel timmy (VASOTEC) 12-25 maleate 10 [place] ege 10 MG 11:56: mg tablet of tablet 36 Medicin e metoprolol Yes metoprolol B a[facility] (LOPRESSOR) 12-25 tartrate Beatrice ege 25 MG 11:56: 25 mg of tablet 36 tablet Medicin e ondansetron Yes ondansetro [facility] (ZOFRAN) 4 12-25 n HCl 4 mg Col lege MG tablet 11:56: tablet of 36 Medicin e Lancets Yes Accu-Chek Baylo r Misc. 12-25 Fastclix [place] (ACCU-CHEK 11:56: Lancet of FASTCLIX 36 Drum Medicin LANCET) KIT e gabapentin Yes gabapentin B [facility] (NEURONTIN) 12-25 600 mg Colleg e 600 MG 11:56: tablet of tablet 36 Medicin e hydrocodone Yes hydrocodon [facility] -acetaminop 12-25 e 10 [facility] ([place]) 11:56: mg-acetami of 10-325 MG 36 nophen 325 Medi abraham per tablet mg tablet e Budesonide- Yes 1 puffs Rachel timmy Formoterol 12-25 [place] Fumarate 11:56: of (SYMBICORT) 36 Medicin 160-4.5 e MCG/ACT AERO enalapril Yes enalapril Rachel timmy (VASOTEC) 12-25 maleate 10 [place] ege 10 MG 11:56: mg tablet of tablet 36 Medicin e metoprolol Yes metoprolol B [facility] (LOPRESSOR) 12-25 tartrate Beatrice ege 25 MG 11:56: 25 mg of tablet 36 tablet Medicin e ondansetron Yes ondansetro [place] (ZOFRAN) 4 9-03 n HCl 4 mg Col lege MG tablet 11:56: tablet of 36 Medicin e Lancets Yes Accu-Chek [facility]. [facility] (ACCU-CHEK 11:56: Lancet of FASTCLIX 36 Drum Medicin LANCET) KIT e gabapentin Yes gabapentin [facility] [place] (NEURONTIN) 12-25 600 mg Colleg e 600 MG 11:56: tablet of tablet 36 Medicin e hydrocodone Yes hydrocodon [facility] -acetaminop 12-25 e 10 [facility] ([place]) 11:56: mg-acetami of 10-325 MG 36 nophen 325 Medi abraham per tablet mg tablet e Budesonide- Yes 1 puffs Rachel timmy Formoterol 12-25 [place] Fumarate 11:56: of (SYMBICORT) 36 Medicin 160-4.5 e MCG/ACT AERO enalapril Yes enalapril Rachel timmy (VASOTEC) 12-25 maleate 10 [place] ege 10 MG 11:56: mg tablet of tablet 36 Medicin e metoprolol Yes metoprolol B [facility] (LOPRESSOR) 12-25 tartrate Beatrice ege 25 MG 11:56: 25 mg of tablet 36 tablet Medicin e ondansetron Yes ondansetro [place] (ZOFRAN) 4 9-03 n HCl 4 mg Col lege MG tablet 11:56: tablet of 36 Medicin e Lancets Yes Accu-Chek [facility]. 12-[address] [facility] (ACCU-CHEK 11:56: Lancet of FASTCLIX 36 Drum Medicin LANCET) KIT e gabapentin Yes gabapentin [facility] (NEURONTIN) 12-25 600 mg Colleg e 600 MG 11:56: tablet of tablet 36 Medicin e hydrocodone Yes hydrocodon [facility] -acetaminop 12-25 e 10 [facility]) 11:56: mg-acetami of 10-325 MG 36 nophen 325 Medi abraham per tablet mg tablet e Budesonide- Yes 1 puffs Rachel timmy Formoterol 12-25 [facility] 11:56: of (SYMBICORT) 36 Medicin 160-4.5 e MCG/ACT AERO enalapril Yes enalapril Rachel timmy (VASOTEC) 12-25 maleate 10 [place] ege 10 MG 11:56: mg tablet of tablet 36 Medicin e metoprolol Yes metoprolol B a[facility] (LOPRESSOR) 12-25 tartrate Beatrice ege 25 MG 11:56: 25 mg of tablet 36 tablet Medicin e ondansetron Yes ondansetro [facility] (ZOFRAN) 4 12-25 n HCl 4 mg Col lege MG tablet 11:56: tablet of 36 Medicin e Lancets Yes Accu-Chek [facility]isc. 12-[facility] 13:19: Lancet of FASTCLIX 20 Drum Medicin LANCET) KIT e gabapentin Yes gabapentin [facility] (NEURONTIN) 12-18 600 mg Colleg e 600 MG 13:19: tablet of tablet 20 Medicin e hydrocodone Yes hydrocodon [facility] -acetaminop 12-18 e 10 [facility]) 13:19: mg-acetami of 10-325 MG 20 nophen 325 Medi abraham per tablet mg tablet e Budesonide- Yes 1 puffs Rachel timmy Formoterol 12-18 [facility] 13:19: of (SYMBICORT) 20 Medicin 160-4.5 e MCG/ACT AERO enalapril Yes enalapril Rachel timmy (VASOTEC) 12-18 maleate 10 [place] ege 10 MG 13:19: mg tablet of tablet 20 Medicin e metoprolol Yes metoprolol B [facility] (LOPRESSOR) 12-18 tartrate Beatrice ege 25 MG 13:19: 25 mg of tablet 20 tablet Medicin e ondansetron Yes ondansetro [facility] (ZOFRAN) 4 12-18 n HCl [...] hours as e needed. amlodipine 0 Yes [facility] College 10 MG 00:00: of tablet 00 Medicin e losartan 2020-0 Yes [facility] (COZAAR) 50 7-22 College MG tablet 00:00: of 00 Medicin e metformin 2020-0 Yes [facility] (GLUCOPHAGE 722 [place] ) 1000 MG 00:00: of tablet 00 Medicin e amlodipine 2020-0 Yes [facility] (NORVASC) 7-22 College 10 MG 00:00: of tablet 00 Medicin e losartan 2020-0 Yes [facility] (COZAAR) 50 7-22 College MG tablet 00:00: of 00 Medicin e metformin 2020-0 Yes [facility] (GLUCOPHAGE 722 [place] ) 1000 MG 00:00: of tablet 00 [facility] MG 00:00: of tablet 00 Medicin e losartan 2020-0 Yes [facility] (COZAAR) 50 7-22 College MG tablet 00:00: of 00 Medicin e metformin 2020-0 Yes [facility] (GLUCOPHAGE 722 College ) 1000 MG 00:00: of tablet 00 Medicin e amlodipine 2020-0 Yes [facility] (NORVASC) 7-22 College 10 MG 00:00: of tablet 00 Medicin e losartan 2020-0 Yes [facility] (COZAAR) 50 7-22 College MG tablet 00:00: of 00 Medicin e metformin 2020-0 Yes [facility] (GLUCOPHAGE 722 [place] ) 1000 MG 00:00: of tablet 00 Medicin e amlodipine 2020-0 Yes [facility] (NORVASC) 7-22 College 10 MG 00:00: of tablet 00 Medicin e losartan 2020-0 Yes [facility] (COZAAR) 50 7-22 College MG tablet 00:00: of 00 Medicin e metformin 2020-0 Yes [facility] (GLUCOPHAGE 22 [place] ) 1000 MG 00:00: of tablet 00 Medicin e amlodipine 2020-0 Yes [facility] (NORVASC) 722 College 10 MG 00:00: of tablet 00 Medicin e losartan 2020-0 Yes [facility] (COZAAR) 50 7-22 College MG tablet 00:00: of 00 Medicin e metformin 2020-0 Yes [facility] (GLUCOPHAGE 22 College ) 1000 MG 00:00: of tablet 00 Medicin e Lancets 2020-0 Yes Accu-Chek Issa r Mis. 11-06 Fastclix [place] (ACCU-CHEK 11:58: Lancet of FASTCLIX 26 Drum Medicin LANCET) KIT e gabapentin Yes gabapentin B [facility] (NEURONTIN) 11-06 600 mg Colleg e 600 MG 11:58: tablet of tablet 26 Medicin e hydrocodone 0 Yes hydrocodon [facility] -acetaminop 11-06 e 10 College hen (NORCO) 11:58: mg-acetami of 10-325 MG 26 nophen 325 Medi abraham per tablet mg tablet e tramadol Yes [place] (ULTRAM) 50 5-25 College MG [...] of 00 Medicin e amlodipine 2020-0 Yes [facility] College 10 MG 00:00: of tablet 00 Medicin e amlodipine 2020-0 Yes [facility] ([facility]) 5-08 College 10 MG 00:00: of tablet 00 Medicin e amlodipine 2020-0 Yes [facility] College 10 MG 00:00: of tablet 00 Medicin e amlodipine 2020-0 Yes [facility] ([facility]) 5-08 College 10 MG 00:00: of tablet 00 Medicin e amlodipine 2020-0 Yes [facility] College 10 MG 00:00: of tablet 00 Medicin e amlodipine 2020-0 Yes [facility] ([facility]) 5-08 College 10 MG 00:00: of [...] Outpati ent Clinics metformin 2020-0 Yes metformin Rachel timmy (GLUCOPHAGE 3-18 1,000 mg [facility]rice ege ) 1000 MG 00:00: tablet of tablet 00 Medicin e metformin 2020-0 Yes metformin Rachel timmy (GLUCOPHAGE 3-18 1,000 mg Beatrice ege ) 1000 MG 00:00: tablet of tablet 00 Medicin e Blood 2020-0 Yes as [facility] Glucose 3-18 directed College Monitor 00:00: (DISPENSE of Software 00 BLOOD Medicin ALICIA GLUCOSE e MONITOR FORMULARY TO INSURANCE) metformin 2020-0 Yes metformin Rachel timmy (GLUCOPHAGE 3-18 1,000 mg Beatrice ege ) 1000 MG 00:00: tablet of tablet 00 Medicin e Blood 2020-0 Yes as [place] Glucose 3-18 directed College Monitor 00:00: (DISPENSE of Software 00 BLOOD Medicin ALICIA GLUCOSE e MONITOR FORMULARY TO INSURANCE) metformin 2020-0 Yes metformin Rachel timmy (GLUCOPHAGE 3-18 1,000 mg [place]rice ege ) 1000 MG 00:00: tablet of tablet 00 Medicin e Blood 2020-0 Yes as [place] Glucose 3-18 directed College Monitor 00:00: (DISPENSE of Software 00 BLOOD Medicin ALICIA GLUCOSE e MONITOR FORMULARY TO INSURANCE) metformin 2020-0 Yes metformin Rachel timmy (GLUCOPHAGE 3-18 1,000 mg Beatrice ege ) 1000 MG 00:00: tablet of tablet 00 Medicin e Blood 2020-0 Yes as [place] Glucose 3-18 directed College Monitor 00:00: (DISPENSE of Software 00 BLOOD Medicin ALICIA GLUCOSE e MONITOR FORMULARY TO INSURANCE) metformin 2020-0 Yes metformin Rachel timmy (GLUCOPHAGE 3-18 1,000 mg Beatrice ege ) 1000 MG 00:00: tablet of tablet 00 Medicin e Blood 2020-0 Yes as [place] Glucose 3-18 directed College Monitor 00:00: (DISPENSE of Software 00 BLOOD Medicin ALICIA GLUCOSE e MONITOR FORMULARY TO INSURANCE) metformin 2020-0 Yes metformin Rachel timmy (GLUCOPHAGE 3-18 1,000 mg Beatrice ege [...] tab, PO, l tablet 14:26: Daily, # [place] 00 30 tab, 0 Refill(s) Acetaminoph 2020-0 [...] tab, PO, l tablet 14:26: Daily, # [place] 00 30 tab, 0 Refill(s) Acetaminoph 2020-0 Yes 1 tab, PO, Memoria en 300 MG / 3-16 Q6H, PRN l Codeine 14:26: Pain, # 28 Herm griselda Phosphate 00 tab, 0 30 MG Oral Refill(s) Tablet [Tylenol with Codeine #3] losartan Yes 25 mg = 1 M emoria mg oral 3-16 tab, PO, l tablet 14:26: Daily, # [place] 00 30 tab, 0 Refill(s) Acetaminoph 2020-0 [...] tablet acetaminoph 2019-0 Yes 1 tab, PO, [facility] en-codeine 3-16 Q6H, PRN Colle ge (TYLENOL 00:00: Pain, # 28 of #3) 300-30 00 tab, 0 Medicin MG per Refill(s) e tablet acetaminoph 2019-0 Yes 1 tab, PO, [facility] en-codeine 3-16 Q6H, PRN Colle ge (TYLENOL 00:00: Pain, # 28 of #3) 300-30 00 tab, 0 Medicin MG per Refill(s) e tablet acetaminoph 2019-0 Yes 1 tab, PO, [facility] en-codeine 3-16 Q6H, PRN Colle ge (TYLENOL 00:00: Pain, # 28 of #3) 300-30 00 tab, 0 Medicin MG per Refill(s) e tablet acetaminoph 2020-0 Yes 1 tab, PO, [facility] en-codeine 3-16 Q6H, PRN Colle ge (TYLENOL 00:00: Pain, # 28 of #3) 300-30 00 tab, 0 Medicin MG per Refill(s) e tablet acetaminoph 2020-0 Yes 1 tab, PO, [facility] en-codeine 3-16 Q6H, PRN Colle ge (TYLENOL 00:00: Pain, # 28 of #3) 300-30 00 tab, 0 Medicin MG per Refill(s) e tablet acetaminoph 2020-0 Yes 1 tab, PO, [facility] en-codeine 3-16 Q6H, PRN Colle ge (TYLENOL 00:00: Pain, # 28 of #3) 300-30 00 tab, 0 Medicin MG per Refill(s) e tablet Losartan Losartan 2019-0 Yes Shelly 1/[address] [facility] Potassium Potassium 1-29 [facility]oria [facility] l [facility] 2016-04 Yes 1 tab, PO, Memoria en 300 MG / 0-24 Q6H, PRN l Codeine 18:44: Pain, X 3 Fany nn Phosphate 00 day, # 12 30 MG Oral tab, 0 Tablet Refill(s) [Tylenol with Codeine #3] [facility] 2016-04 Yes 1 tab, PO, Memoria en 300 MG / 0-24 Q6H, PRN l Codeine 18:44: Pain, X 3 Fany nn Phosphate 00 day, # 12 30 MG Oral tab, 0 Tablet Refill(s) [Tylenol with Codeine #3] [facility] 2016-04 Yes 1 tab, PO, Memoria en 300 MG / 0-24 Q6H, PRN l Codeine 18:44: Pain, X 3 Fany nn Phosphate 00 day, # 12 30 MG Oral tab, 0 Tablet Refill(s) [Tylenol with Codeine #3] [facility] 2016-04 Yes 1 tab, PO, Memoria en 300 MG / 0-24 Q6H, PRN l Codeine 18:44: Pain, X 3 Fany nn Phosphate 00 day, # 12 30 MG Oral tab, 0 Tablet Refill(s) [Tylenol with Codeine #3] [facility] 2016-04 Yes 1 tab, PO, Memoria en 300 MG / 0-24 Q6H, PRN l Codeine 18:44: Pain, X 3 Fany nn Phosphate 00 day, # 12 30 MG Oral tab, 0 Tablet Refill(s) [Tylenol with Codeine #3] [facility] 2016-04 Yes 1 tab, PO, Memoria [...] tab, PO, l tablet 18:43: Q8H, PRN [place] 00 Pain, Take with food, X 5 [...] tab, PO, l tablet 18:43: Q8H, PRN [place] 00 Pain, Take with food, X 5 [...] tab, PO, l tablet 18:43: Q8H, PRN [place] 00 Pain, Take with food, X 5 [...] tab, PO, l tablet 18:43: Q8H, PRN [place] 00 Pain, Take with food, X 5 day, # 15 tab, 0 Refill(s) Motrin 2016-04 No 600 mg, Memoria 0-24 Route: PO, l 17:01: Drug form: Jah 00 TAB, ONCE, Dosing Weight 123.438, kg, Priority: STAT, Start date: 02/14/17 12:01:00 CDT, Stop date: 02/14/17 12:01:00 CDT Motrin 2017 No 600 mg, Memoria 0-24 Route: PO, l 17:01: Drug form: [place] 00 TAB, ONCE, Dosing Weight 123.438, kg, [...] 0-24 Route: PO, l 17:01: Drug form: [place] 00 TAB, ONCE, Dosing Weight 123.438, kg, [...] 0-24 Route: PO, l 17:01: Drug form: [place] 00 TAB, ONCE, Dosing Weight 123.438, kg, [...] 0 Tablet [facility]) [facility], Me moria 800 mg-160 5-17 BID, X 10 l mg oral 06:21: day, # 20 Fany nn tablet 00 tab, 0 Refill(s) [facility] Yes 1 tab, PO, Me moria 800 mg-160 5-17 BID, X 10 l mg oral 06:21: day, # 20 Fany nn tablet 00 tab, 0 Refill(s) Yes 1 tab, PO, Me moria 800 mg-160 5-17 BID, X 10 l mg oral 06:21: day, # 20 Fany nn tablet 00 tab, 0 Refill(s) [facility] Yes 1 tab, PO, Me moria 800 mg-160 5-17 BID, X 10 l mg oral 06:21: day, # 20 Fany nn tablet 00 tab, 0 [facility], Me moria 800 mg-160 5-17 BID, X 10 l mg oral 06:21: day, # 20 Fany nn tablet 00 tab, 0 [facility], PO, Me moria 800 [...] not exceed l Hydrocodone 10:30: 4gm/day of [place] Bitartrate 00 acetaminop 10 MG Oral hen. Tablet (Same as: [Knightsen Knightsen 10/325] 325/10) Acetamino 2014-04 No Notes: Do M emoria en 325 MG / 2-05 not exceed l Hydrocodone 10:30: 4gm/day of Jah Bitartrate 00 acetaminop 10 MG Oral hen. Tablet (Same as: [Knightsen [place] 10/325] 325/10) Acetamino 2014-04 No Notes: Do M emoria en 325 MG / 2-05 not exceed l Hydrocodone 10:30: 4gm/day of Jah Bitartrate 00 acetaminop 10 MG Oral hen. Tablet (Same as: [Knightsen [place] 10/325] 325/10) Acetaminoph 2014-04 No Notes: Do M emoria en 325 MG / 2-05 not exceed l Hydrocodone 10:30: 4gm/day of Jah Bitartrate 00 acetaminop 10 MG Oral hen. Tablet (Same as: [Knightsen [place] 10/325] 325/10) Acetaminoph 2014-04 No Notes: Do M emoria en 325 MG / 2-05 not exceed l Hydrocodone 10:30: 4gm/day of [place] Bitartrate 00 acetaminop 10 MG Oral hen. Tablet (Same as: [Knightsen [place]en 10/325] 325/10) Acetaminoph 2014-04 No Notes: Do M emoria en 325 MG / 2-05 not exceed l Hydrocodone 10:30: 4gm/day of [place] Bitartrate 00 acetaminop 10 MG Oral hen. Tablet (Same as: [Knightsen [place]en 10/325] 325/10) 200 ACTUAT 2014-04 Yes 2 [...] INHALATION l 0.09 09:39: , QID, 0 [place] MG/ACTUAT 00 Refill(s) Metered Dose Inhaler Non-Formula 2014-04 Yes Refill(s) Irma cardonaria ry Home 2-05 0 l Medication 09:38: [place] 00 Non-Formula 2014-04 Yes Refill(s) Irma cardonaria ry Home 2-05 0 l Medication 09:38: [place] 00 Non-Formula 2014-04 Yes Refill(s) Irma cardonaritaco ry Home 2-05 0 l Medication 09:38: Jah 00 Non-Formula 2014-04 Yes Refill(s) Irma cardonaritaco ry Home 2-05 0 l Medication 09:38: Jah 00 Non-Formula 2014-04 Yes Refill(s) Irma cardonaria ry Home 2-05 0 l Medication 09:38: [place] 00 Non-Formula 2014-04 Yes Refill(s) Irma cardonaria ry Home 2-05 0 l Medication 09:38: [place] 00 non-formula 2014-04 Yes Refill(s) Irma cardonaria ry 2-05 0 l 09:37: [place] 00 non-formula 2014-04 Yes Refill(s) Irma cardonaria ry 2-05 0 l 09:37: [place] 00 non-formula 2014-04 Yes Refill(s) Irma cardonaria ry 2-05 0 l 09:37: Jah 00 non-formula 2014-04 Yes Refill(s) Irma cardonaria ry 2-05 0 l 09:37: Jah 00 non-formula 2014-04 Yes Refill(s) Irma cardonaria ry 2-05 0 l 09:37: Jah 00 non-formula 2014-04 Yes Refill(s) Irma cardonaria ry 2-05 0 l 09:37: [place] 00 Morphine 2014-04 No Notes: [facility] 2-05 [...] Chloride 2-05 1000 l 0.154 06:01: ml/hr, [place] MEQ/ML 00 Infuse Injectable Over: 1 Solution hr, Route: IV, 1,000, Drug form: INJ, ONCE, Priority: STAT, Dosing Weight 122.727 kg, Start date: 03/28/15 0:01:00, Duration: 1 doses or times, Stop date: 03/28/15 0:01:00 Saline 2014-04 No Notes: [facility] Flush 0.9% 2-05 (Same as: l 06:01: BD [place] 00 Posiflush) Morphine 2014-04 No Notes: [facility] 2-05 (Same l 06:01: as:MORPhin [place] 00 e Sulfate) Ondansetron 2014-04 No Notes: Thaddeus mekhi 2-05 (Same as: l 06:01: Zofran) [place] 00 MEDICATION WASTE Product Size: 4 mg Product Wasted: ___ mg Sodium 2014-04 No 1,000 mL, Memori a Chloride 2-05 1000 l 0.154 06:01: ml/hr, [place] MEQ/ML 00 Infuse Injectable Over: 1 Solution [...] 0.9% 2-05 (Same as: l 06:01: BD [place] 00 Posiflush) Morphine 2014-04 No Notes: [facility] 2-05 (Same l 06:01: as:MORPhin [place] 00 e Sulfate) Ondansetron 2014-04 No Notes: [...] mekhi 2-05 (Same as: l 06:01: Zofran) [place] 00 MEDICATION WASTE Product Size: 4 mg Product Wasted: ___ mg Sodium 2014-04 No 1,000 mL, [facility] a Chloride 2-05 1000 l 0.154 06:01: ml/hr, [place] MEQ/ML 00 Infuse Injectable Over: 1 Solution hr, Route: IV, 1,000, Drug form: INJ, ONCE, Priority: STAT, Dosing Weight 122.727 kg, Start date: 03/28/15 0:01:00, Duration: 1 doses or times, Stop date: 03/28/15 0:01:00 Saline 2014-04 No Notes: [facility] Flush 0.9% 2-05 (Same as: l 06:01: BD [place] 00 Posiflush) Combigan Combigan Yes Shelly [address] [facility] Symbicort Symbicort Yes [place] [address] [facility] Lumigan Lumigan Yes [place]ly [address] [facility] Amlodipine Amlodipine Yes Shelly [address] [facility] Besylate Besylate [facility] Vital Signs Vital Name Observation Time Observation Value Comments Source HEIGHT 2020-12-10 09:39:00 165.1 cm WEIGHT 2020-12-10 09:39:00 101.969 kg HEIGHT 2020-12-09 14:34:00 165.1 cm WEIGHT 2020-12-09 14:34:00 102.967 kg Systolic blood 2021-07-02 19:02:00 128 mm[Hg] [facility] pressure Medicine Diastolic blood 2021-07-02 19:02:00 78 mm[Hg] [facility] pressure Medicine Heart rate 2021-07-02 19:02:00 120 /min [facility] Body temperature 2021-07-02 19:02:00 36.11 [facility] Body height 2021-07-02 19:02:00 165.1 cm [facility] Body weight 2021-07-02 19:02:00 100.699 kg [facility] BMI 2021-07-02 19:02:00 36.94 kg/m2 [facility] Medicine Systolic blood 2020-12-25 16:54:00 112 mm[Hg] [facility] Medicine Diastolic blood 2020-12-25 16:54:00 71 mm[Hg] [facility] Medicine Heart rate 2020-12-25 16:54:00 86 /min [facility] Body temperature 2020-12-25 16:54:00 36.11 [facility] Body height 2020-12-25 16:54:00 165.1 cm [facility] Body weight 2020-12-25 16:54:00 104.781 kg [facility] BMI 2020-12-25 16:54:00 38.44 kg/m2 [facility] Systolic blood 2020-12-25 16:09:00 118 mm[Hg] [facility] Medicine Diastolic blood 2020-12-25 16:09:00 79 mm[Hg] [facility] Medicine Heart rate 2020-12-25 16:09:00 106 /min [facility] Body height 2020-12-18 18:17:00 165.1 cm [facility] HEIGHT 2020-12-10 09:39:00 165.1 cm WEIGHT 2020-12-10 09:39:00 101.969 kg HEIGHT 2020-12-09 14:34:00 165.1 cm WEIGHT 2020-12-09 14:34:00 102.967 kg WEIGHT 2020-12-09 12:35:00 103.329 kg HEIGHT 2020-12-09 12:35:00 165.1 cm WEIGHT 2020-12-09 12:35:00 103.329 kg HEIGHT 2020-12-09 12:35:00 165.1 cm Systolic blood 2020-11-06 15:40:00 129 mm[Hg] [facility] Medicine Diastolic blood 2020-11-06 15:40:00 76 mm[Hg] [facility] Medicine Heart rate 2020-11-06 15:40:00 91 /min [facility] Body temperature 2020-11-06 15:40:00 36.17 [facility] Body height 2020-11-06 15:40:00 165.1 cm [facility] Body weight 2020-11-06 15:40:00 101.606 kg [facility] BMI 2020-11-06 15:40:00 37.28 kg/m2 [facility] Height 2019-07-08 14:21:00 165.1 cm [facility] [place] Weight 2019-07-08 14:21:00 [facility] [place] BMI Calculated 2019-07-08 14:21:00 [facility] al Jah Respitory Rate 2017-02-14 19:00:00 [facility] [place] Heart Rate 2017-02-14 19:00:00 [facility] [place] Systolic (mm Hg) 2017-02-14 19:00:00 Thaddeus rial Jah Diastolic (mm Hg) 2017-02-14 19:00:00 Mem orial [place] Heart Rate 2017-02-14 17:12:00 [facility] Respitory Rate 2017-02-14 17:12:00 [facility] [place] Systolic (mm Hg) 2017-02-14 17:12:00 Thaddeus rial [place] Diastolic (mm Hg) 2017-02-14 17:12:00 Mem orial [place] Respitory Rate 2017-02-14 16:57:00 [facility] al Jah Heart Rate 2017-02-14 16:57:00 [facility] Systolic (mm Hg) 2017-02-14 16:57:00 Thaddeus rial [place] Diastolic (mm Hg) 2017-02-14 16:57:00 [facility] [place] BMI Calculated 2017-02-14 15:38:00 [facility] [place] Weight 2017-02-14 15:38:00 [facility] [place] Height 2017-02-14 15:38:00 167.64 cm [facility] [place] Temperature Oral (F) 2017-02-14 15:38:00 98.0 F [facility] [place] Respitory Rate 2016-09-07 06:40:00 [facility] al Jah Heart Rate 2016-09-07 06:40:00 [facility] Temperature Oral (F) 2016-09-07 06:40:00 98.6 F [facility] Systolic (mm Hg) 2016-09-07 06:40:00 Thaddeus rial Jah Diastolic (mm Hg) 2016-09-07 06:40:00 Mem orial [place] Systolic (mm Hg) 2016-09-07 05:54:00 Thaddeus rial Jah Diastolic (mm Hg) 2016-09-07 05:54:00 Mem orial [place] Heart Rate 2016-09-07 05:54:00 [facility] Respitory Rate 2016-09-07 05:54:00 [facility] [place] Temperature Oral (F) 2016-09-07 05:54:00 98.7 F [facility] Height 2016-09-07 02:08:00 167.64 cm [facility] [place] Temperature Oral (F) 2016-09-07 02:08:00 99.0 F [facility] [place] Respitory Rate 2016-09-07 02:08:00 [facility] [place] Heart Rate 2016-09-07 02:08:00 [facility] [place] Systolic (mm Hg) 2016-09-07 02:08:00 Thaddeus rial [place] Diastolic (mm Hg) 2016-09-07 02:08:00 Mem orial Jah Weight 2016-09-07 02:08:00 [facility] BMI Calculated 2016-09-07 02:08:00 [facility] [place] Heart Rate 2015-03-28 11:51:00 [facility] Temperature Oral (F) 2015-03-28 11:51:00 98.0 F [facility] [place] Systolic (mm Hg) 2015-03-28 11:51:00 Thaddeus rial Jah Diastolic (mm Hg) 2015-03-28 11:51:00 Mem orial [place] Respitory Rate 2015-03-28 11:51:00 [facility] [place] Systolic (mm Hg) 2015-03-28 10:35:00 Thaddeus rial Jah Diastolic (mm Hg) 2015-03-28 10:35:00 Mem orial Jah Heart Rate 2015-03-28 10:35:00 [facility] [place] Respitory Rate 2015-03-28 10:35:00 [facility] [place] Systolic (mm Hg) 2015-03-28 09:36:00 Thaddeus rial [place] Diastolic (mm Hg) 2015-03-28 09:36:00 Mem orial Jah Heart Rate 2015-03-28 09:36:00 [facility] [place] Respitory Rate 2015-03-28 09:36:00 [facility] [place] Height 2015-03-28 05:58:00 [facility].1 [facility] BMI Calculated 2015-03-28 05:58:00 Rey [place] Weight 2015-03-28 05:58:00 [facility] Temperature Oral (F) 2015-03-28 05:58:00 98.1 F [facility] Jah Height 2013-03-14 17:00:00 167.64 cm [facility] Weight 2013-03-14 17:00:00 [facility] Procedures Procedure Date / Time Performed Performing Clinician [facility] e Partial hysterectomy [facility] Plan of Care Planned Activity Planned Date Details Comments Source Future Scheduled 2021-07-02 Screening for malignant [facility] Test 13:02:47 neoplasm of colon Medicine (procedure) [code = 566277944] Future Scheduled 2021-07-02 Screening for malignant [facility] Test 13:02:47 neoplasm of breast Medicine (procedure) [code = 501637694] Future Scheduled 2021-07-02 COVID-19 Vaccine (1) [facility] Test 13:02:47 [code = COVID-19 Vaccine Med icine (1)] Future Scheduled 2021-07-02 Pneumococcal Combined (1 [facility] Test 13:02:47 of 4 - PCV13) [code = Medici ne Pneumococcal Combined (1 of 4 - PCV13)] Future Scheduled 2021-07-02 Diabetic foot examination [facility] Test 13:02:47 (regime/therapy) [code = Med icine [id number]] Future Scheduled 2021-07-02 ANNUAL DIABETIC [facility] Test 13:02:47 RETINOPATHY SCREENING Medici ne [code = ANNUAL DIABETIC RETINOPATHY SCREENING] Future Scheduled 2021-07-02 Hepatitis C screening [facility] Test 13:02:47 (procedure) [code = Medicine 982923017] Future Scheduled 2021-07-02 Human immunodeficiency B [facility] Test 13:02:47 virus screening Medicine (procedure) [code = 205839338] Future Scheduled 2021-07-02 Screening for malignant [facility] Test 13:02:47 neoplasm of cervix Medicine (procedure) [code = 573845245] Future Scheduled 2021-07-02 ZOSTER VACCINE (1 of 2) [facility] Test 13:02:47 [code = ZOSTER VACCINE (1 Me dicine of 2)] Future Scheduled 2021-07-02 MEDICARE IPPE (WELCOME TO [facility] Test 13:02:47 MEDICARE) [code = Medicine MEDICARE IPPE (WELCOME TO MEDICARE)] Future Scheduled 2021-07-02 FLU VACCINE > 6 MONTHS B [facility] Test 13:02:47 [code = FLU VACCINE > 6 Medi cine MONTHS] Future Scheduled 2021-07-02 TETANUS SHOT (ADULT) [facility] Test 13:02:47 [code = TETANUS SHOT Medicin e (ADULT)] Future Scheduled 2021-07-02 BMI FOLLOW UP PLAN [code [facility] Test 13:02:47 = BMI FOLLOW UP PLAN] Medici ne Future Scheduled 2020-12-25 ZOSTER VACCINE (1 of 2) [facility] Test 11:56:38 [code = ZOSTER VACCINE (1 Me dicine of 2)] Future Scheduled 2020-12-25 MEDICARE IPPE (WELCOME TO [facility] Test 11:56:38 MEDICARE) [code = Medicine MEDICARE IPPE (WELCOME TO MEDICARE)] Future Scheduled 2020-12-25 FLU VACCINE > 6 MONTHS B [facility] Test 11:56:38 [code = FLU VACCINE > 6 Medi cine MONTHS] Future Scheduled 2020-12-25 TETANUS SHOT (ADULT) [facility] Test 11:56:38 [code = TETANUS SHOT Medicin e (ADULT)] Future Scheduled 2020-12-25 BMI FOLLOW UP PLAN [code [facility] Test 11:56:38 = BMI FOLLOW UP PLAN] Medici ne Future Scheduled 2020-12-25 Screening for malignant [facility] Test 11:56:38 neoplasm of colon Medicine (procedure) [code = 964845458] Future Scheduled 2020-12-25 Screening for malignant [facility] Test 11:56:38 neoplasm of breast Medicine (procedure) [code = 620204824] Future Scheduled 2020-12-25 COVID-19 Vaccine (1) [facility] Test 11:56:38 [code = COVID-19 Vaccine Med icine (1)] Future Scheduled 2020-12-25 Diabetic foot examination [facility] Test 11:56:38 (regime/therapy) [code = Med icine [id number]] Future Scheduled 2020-12-25 ANNUAL DIABETIC [facility] Test 11:56:38 RETINOPATHY SCREENING Medici ne [code = ANNUAL DIABETIC RETINOPATHY SCREENING] Future Scheduled 2020-12-25 Hepatitis C screening [facility] 11:56:38 (procedure) [code = Medicine 207561417] Future Scheduled 2020-12-25 Human immunodeficiency B [facility] 11:56:38 virus screening Medicine (procedure) [code = 823736881] Future Scheduled 2020-12-25 Screening for malignant [facility] Test 11:56:38 neoplasm of cervix Medicine (procedure) [code = 238049794] Future Scheduled 2020-12-25 ZOSTER VACCINE (1 of 2) [facility] Test 11:56:38 [code = ZOSTER VACCINE (1 Me dicine of 2)] Future Scheduled 2020-12-25 MEDICARE IPPE (WELCOME TO [facility] Test 11:56:38 MEDICARE) [code = Medicine MEDICARE IPPE (WELCOME TO MEDICARE)] Future Scheduled 2020-12-25 FLU VACCINE > 6 MONTHS B [facility] Test 11:56:38 [code = FLU VACCINE > 6 Medi cine MONTHS] Future Scheduled 2020-12-25 TETANUS SHOT (ADULT) [facility] Test 11:56:38 [code = TETANUS SHOT Medicin e (ADULT)] Future Scheduled 2020-12-25 BMI FOLLOW UP PLAN [code [facility] Test 11:56:38 = BMI FOLLOW UP PLAN] Medici ne Future Scheduled 2020-12-25 Screening for malignant [facility] Test 11:56:38 neoplasm of colon Medicine (procedure) [code = 993321625] Future Scheduled 2020-12-25 Screening for malignant [facility] Test 11:56:38 neoplasm of breast Medicine (procedure) [code = 597605440] Future Scheduled 2020-12-25 COVID-19 Vaccine (1) [facility] Test 11:56:38 [code = COVID-19 Vaccine Med icine (1)] Future Scheduled 2020-12-25 Diabetic foot examination [facility] Test 11:56:38 (regime/therapy) [code = Med icine 356518990] Future Scheduled 2020-12-25 ANNUAL DIABETIC [facility] Test 11:56:38 RETINOPATHY SCREENING Medici ne [code = ANNUAL DIABETIC RETINOPATHY SCREENING] Future Scheduled 2020-12-25 Hepatitis C screening [facility] Test 11:56:38 (procedure) [code = Medicine 392404012] Future Scheduled 2020-12-25 Human immunodeficiency B [facility] Test 11:56:38 virus screening Medicine (procedure) [code = 614499475] Future Scheduled 2020-12-25 Screening for malignant [facility] Test 11:56:38 neoplasm of cervix Medicine (procedure) [code = 226656823] Future Scheduled 2020-12-25 ZOSTER VACCINE (1 of 2) [facility] Test 11:56:38 [code = ZOSTER VACCINE (1 Me dicine of 2)] Future Scheduled 2020-12-25 MEDICARE IPPE (WELCOME TO [facility] Test 11:56:38 MEDICARE) [code = Medicine MEDICARE IPPE (WELCOME TO MEDICARE)] Future Scheduled 2020-12-25 FLU VACCINE > 6 MONTHS B [facility] Test 11:56:38 [code = FLU VACCINE > 6 Medi cine MONTHS] Future Scheduled 2020-12-25 TETANUS SHOT (ADULT) [facility] Test 11:56:38 [code = TETANUS SHOT Medicin e (ADULT)] Future Scheduled 2020-12-25 BMI FOLLOW UP PLAN [code [facility] Test 11:56:38 = BMI FOLLOW UP PLAN] Medici ne Future Scheduled 2020-12-25 Screening for malignant [facility] Test 11:56:38 neoplasm of colon Medicine (procedure) [code = 218971146] Future Scheduled 2020-12-25 Screening for malignant [facility] Test 11:56:38 neoplasm of breast Medicine (procedure) [code = 446283696] Future Scheduled 2020-12-25 COVID-19 Vaccine (1) [facility] Test 11:56:38 [code = COVID-19 Vaccine Med icine (1)] Future Scheduled 2020-12-25 Diabetic foot examination [facility] Test 11:56:38 (regime/therapy) [code = Med icine 487290272] Future Scheduled 2020-12-25 ANNUAL DIABETIC [facility] Test 11:56:38 RETINOPATHY SCREENING Medici ne [code = ANNUAL DIABETIC RETINOPATHY SCREENING] Future Scheduled 2020-12-25 Hepatitis C screening [facility] Test 11:56:38 (procedure) [code = Medicine 530487229] Future Scheduled 2020-12-25 Human immunodeficiency B [facility] Test 11:56:38 virus screening Medicine (procedure) [code = 892274190] Future Scheduled 2020-12-25 Screening for malignant [facility] Test 11:56:38 neoplasm of cervix Medicine (procedure) [code = 038600852] Future Scheduled 2020-12-25 ZOSTER VACCINE (1 of 2) [facility] Test 11:56:38 [code = ZOSTER VACCINE (1 Me dicine of 2)] Future Scheduled 2020-12-25 MEDICARE IPPE (WELCOME TO [facility] Test 11:56:38 MEDICARE) [code = Medicine MEDICARE IPPE (WELCOME TO MEDICARE)] Future Scheduled 2020-12-25 FLU VACCINE > 6 MONTHS B [facility] Test 11:56:38 [code = FLU VACCINE > 6 Medi cine MONTHS] Future Scheduled 2020-12-25 TETANUS SHOT (ADULT) [facility] Test 11:56:38 [code = TETANUS SHOT Medicin e (ADULT)] Future Scheduled 2020-12-25 BMI FOLLOW UP PLAN [code [facility] Test 11:56:38 = BMI FOLLOW UP PLAN] Medici ne Future Scheduled 2020-12-25 Screening for malignant [facility] Test 11:56:38 neoplasm of colon Medicine (procedure) [code = 427173479] Future Scheduled 2020-12-25 Screening for malignant [facility] Test 11:56:38 neoplasm of breast Medicine (procedure) [code = 687141556] Future Scheduled 2020-12-25 COVID-19 Vaccine (1) [facility] Test 11:56:38 [code = COVID-19 Vaccine Med icine (1)] Future Scheduled 2020-12-25 Diabetic foot examination [facility] Test 11:56:38 (regime/therapy) [code = Med icine 701521665] Future Scheduled 2020-12-25 [facility]IC [facility] 11:56:38 RETINOPATHY SCREENING Medici ne [code = ANNUAL DIABETIC RETINOPATHY SCREENING] Future Scheduled 2020-12-25 Hepatitis C screening [facility] Test 11:56:38 (procedure) [code = Medicine 674434601] Future Scheduled 2020-12-25 Human immunodeficiency B [facility] Test 11:56:38 virus screening Medicine (procedure) [code = 783278689] Future Scheduled 2020-12-25 Screening for malignant [facility] Test 11:56:38 neoplasm of cervix Medicine (procedure) [code = 059398652] Future Scheduled 2020-12-18 BMI FOLLOW UP PLAN [code [facility] Test 13:30:20 = BMI FOLLOW UP PLAN] Medici ne Future Scheduled 2020-12-18 Screening for malignant [facility] Test 13:17:57 neoplasm of colon Medicine (procedure) [code = 713943299] Future Scheduled 2020-12-18 Screening for malignant [facility] Test 13:17:57 neoplasm of breast Medicine (procedure) [code = 291432828] Future Scheduled 2020-12-18 COVID-19 Vaccine (1) [facility] Test 13:17:57 [code = COVID-19 Vaccine Med icine (1)] Future Scheduled 2020-12-18 Diabetic foot examination [facility] Test 13:17:57 (regime/therapy) [code = Med icine 033874714] Future Scheduled 2020-12-18 [facility]NUAL [facility]ETIC [facility] 13:17:57 RETINOPATHY SCREENING Medici ne [code = ANNUAL DIABETIC RETINOPATHY SCREENING] Future Scheduled 2020-12-18 Hepatitis C screening [facility] Test 13:17:57 (procedure) [code = Medicine 956330890] Future Scheduled 2020-12-18 Human immunodeficiency B [facility] Test 13:17:57 virus screening Medicine (procedure) [code = 593218305] Future Scheduled 2020-12-18 Screening for malignant [facility] Test 13:17:57 neoplasm of cervix Medicine (procedure) [code = 914343698] Future Scheduled 2020-12-18 ZOSTER VACCINE (1 of 2) [facility] Test 13:17:57 [code = ZOSTER VACCINE (1 Me dicine of 2)] Future Scheduled 2020-12-18 MEDICARE IPPE (WELCOME TO [facility] Test 13:17:57 MEDICARE) [code = Medicine MEDICARE IPPE (WELCOME TO MEDICARE)] Future Scheduled 2020-12-18 FLU VACCINE > 6 MONTHS B [facility] Test 13:17:57 [code = FLU VACCINE > 6 Medi cine MONTHS] Future Scheduled 2020-12-18 TETANUS SHOT (ADULT) [facility] Test 13:17:57 [code = TETANUS SHOT Medicin e (ADULT)] Future Scheduled 2020-11-06 Screening for malignant [facility] Test 13:13:10 neoplasm of colon Medicine (procedure) [code = 112921077] Future Scheduled 2020-11-06 Screening for malignant [facility] Test 13:13:10 neoplasm of breast Medicine (procedure) [code = 204199126] Future Scheduled 2020-11-06 COVID-19 Vaccine (1) [facility] Test 13:13:10 [code = COVID-19 Vaccine Med icine (1)] Future Scheduled 2020-11-06 TETANUS SHOT (ADULT) [facility] Test 13:13:10 [code = TETANUS SHOT Medicin e (ADULT)] Future Scheduled 2020-11-06 Diabetic foot examination [facility] Test 13:13:10 (regime/therapy) [code = Med icine 496170647] Future Scheduled 2020-11-06 [facility] 13:13:10 RETINOPATHY SCREENING Medici ne [code = ANNUAL DIABETIC RETINOPATHY SCREENING] Future Scheduled 2020-11-06 Hepatitis C screening [facility] Test 13:13:10 (procedure) [code = Medicine 655616244] Future Scheduled 2020-11-06 Human immunodeficiency B [facility] 13:13:10 virus screening Medicine (procedure) [code = 290400027] Future Scheduled 2020-11-06 Screening for malignant [facility] Test 13:13:10 neoplasm of cervix Medicine (procedure) [code = 608588175] Future Scheduled 2020-11-06 ZOSTER VACCINE (1 of 2) [facility] Test 13:13:10 [code = ZOSTER VACCINE (1 Me dicine of 2)] Future Scheduled 2020-11-06 MEDICARE IPPE (WELCOME TO [facility] Test 13:13:10 MEDICARE) [code = Medicine MEDICARE IPPE (WELCOME TO MEDICARE)] Future Scheduled 2020-11-06 FLU VACCINE > 6 MONTHS B [facility] Test 13:13:10 [code = FLU VACCINE > 6 Medi cine MONTHS] Future Scheduled 2020-11-06 BMI FOLLOW UP PLAN [code [facility] Test 13:13:10 = BMI FOLLOW UP PLAN] Medici ne Encounters Start End Encounter Admission Attending Care Care Encounter Source Date/Time Date/Time Type Type Clinicians Facility Department ID 2021-06-08 Outpatient Debbie, [facility] [id number] 07[facility]08[facility] 2021-05-22 Outpatient Debbie, [facility] [id number] 10:06:02 [facility] 2021-05-19 Outpatient Debbie, Na [facility] [id number] 14:38:37 [facility] 2021-05-19 Outpatient Debbie, Na [facility] [id number] 14:09:02 [id number] [facility] 2021-05-19 Out[facility] Debbie, [facility] [id number] 14:01:41 [id number] [facility] 2021-05-19 Outpatient Debbie, Na [facility] [id number] 13[facility]50:30 [id number] [facility] 2021-05-19 Out[facility] Arash, [facility] [id number] [facility] 13[facility]28:10 Shelly [id number] [facility] 2021-05-19 Out[facility] Arash, [facility] [id number] [facility] 12[facility]08:56 Shelly [id number] [facility] 2021-05-19 Outpatient Arash [facility] [id number] [facility] 11:31:36 Shelly [id number] [facility] 2021-05-19 Outpatient Arash [facility] [id number] [facility] 11:12:52 Shelly [id number] [facility] 2021-05-19 Outpatient Arash, [facility] [id number] [facility] 11:04:02 Shelly [id number] [facility] 2021-05-19 Out[facility] Arash, [facility] [id number] [facility] 11:00:43 Shelly [id number] [facility] 2021-05-19 Outpatient Arash, [facility] [id number] 11:00:34 Shel[facility] [id number] [facility] 2021-01-31 Outpatient ANDREY, [facility] Surgery [id number] [facility] 05:40:26 BAIRON 2020-01-10 Outpatient NORM [facility] MED [id number] 15:47:17 ASIA 2021-08-09 2021-08-09 ambulatory STLMLC STLMLC [id number] [facility] 2021-08-06 2021-08-07 Outpatient ER TATY, [facility] Neurosurger [id number] [facility] 12:07:00 19:12:00 LESLEY redmond 2021-07-19 2021-07-19 ambulatory [facility]LMLC STLMLC [id number] [facility] 2021-07-19 2021-07-19 ambulatory [facility]LMLC STLMLC [id number] [facility] 2021-07-05 2021-07-05 ambulatory [facility]LMLC STLMLC [id number] [facility] 2021-07-02 2021-07-02 Office ERMA BALDERAS [id number] [facility] 12:38:09 15:25:44 Visit BAIRON Grigsby 350.1.13.21 Co llege 0.2.7.2.686 of [id number] [facility] 510 e 2021-05-14 2021-05-14 ambulatory STLMLC STLMLC [id number] [facility] 2021-02-12 2021-02-12 Outpatient [facility]LMLC STLMLC [id number] [facility] 2020-12-25 2020-12-25 Office ERMA Balderas [id number] [facility] 11:48:52 12:03:52 Visit Bairon Griselda GuNair 350.1.13.21 College 0.2.7.2.686 of [id number] Medi abraham 510 e 2020-12-25 2020-12-25 Office MICHELLE Alonzo [id number] [facility] 11:01:49 11:37:00 Visit Karine AMBULATOR 350.1.13.21 College Y 0.2.7.2.686 of [id number] Medi abraham 800 e 2020-12-18 2020-12-18 Office MICHELLE Kingsley [id number] [facility] 12:52:33 13:52:10 Visit Karma AMBULATOR 350.1.13.21 College Y 0.2.7.2.686 of [id number] Medi abraham 800 e 2020-12-09 2020-12-09 Outpatient EL [facility] [id number] [facility] 00:00:00 00:00:00 2020-12-09 2020-12-09 Outpatient EL [facility] [id number] [facility] 00:00:00 00:00:00 2020-11-26 2020-11-26 Outpatient MICHELLE DAY [facility] [id number] [facility] 10:56:07 12:09:57 WHITNEY mera of Medicin e 2020-11-11 2020-11-11 Outpatient [facility] [id number] [facility] 00:00:00 00:00:00 [facility] 2020-11-06 2020-11-06 Office Andrey [facility] [id number] [facility] 10:24:12 12:43:12 Visit Bairon Griselda GuNair 350.1.13.21 College 0.2.7.2.686 of [id number] Medi abraham 510 e 2020-11-06 2020-11-06 Outpatient MICHELLE GONZALES [facility] [id number] [facility] 11:50:11 12:35:12 JUAN FRANCISCO frausto of Medicin e 2020-09-25 2020-09-25 Outpatient MICHELLE BALDERAS [facility] [id number] [facility] 13:46:53 15:07:45 BAIRON mera of Medicin e 2019-12-04 2019-12-04 [facility] [id number] [facility] 08:52:00 08:52:00 [facility] Medicine Medicine Outpati ent Clinics 2019-11-07 2019-11-07 [facility] [id number] 15:00:00 15:00:00 [facility] l Medicine Outpati ent Clinics 2019-08-20 2019-08-20 [facility] [id number] 08:12:00 08:12:00 [facility] Medicine Outpati ent Clinics 2019-08-14 2019-08-14 [facility] [id number] 11:00:00 11:00:00 [facility] Medicine Outpati ent Clinics 2019-07-08 2019-07-09 Outpatient [place] [id number] [facility] 13:31:00 04:59:00 [place] [address] l [facility] 2019-07-08 2019-07-08 Outpatient YALLAMPALLI MHBL MHBL [id number] [facility]BL 08:31:00 23:59:00 , [facility] 2019-07-08 2019-07-08 [facility] [id number] 13:11:00 13:11:00 [facility] Medicine Outpati ent Clinics 2019-05-22 2019-05-22 [facility] [id number] [facility] 21:07:00 21:07:00 [facility] Medicine Outpati ent Clinics 2019-05-22 2019-05-22 [facility] [id number] 09:30:00 09:30:00 [facility] Medicine Outpati ent Clinics 2019-05-20 2019-05-20 [facility] [id number] 08:57:00 08:57:00 t [facility] Medicine Outpati ent Clinics 2019-05-16 2019-05-16 [facility] [id number] 14:55:00 14:55:00 t [facility] Medicine Outpati ent Clinics 2019-05-07 2019-05-07 [facility] [id number] [facility] 15:15:00 15:15:00 [facility] Medicine Outpati ent [facility] 2017-02-14 2017-02-14 Emergency nullFlavo [facility] [id number] [facility] 15:33:00 19:15:00 r Jah 03 l [facility] 2016-09-07 2016-09-07 Emergency nullFlavo [facility] [id number] [facility] 01:43:00 06:42:00 r Jah 02 l [facility] 2015-03-28 2015-03-28 nullFlavo [facility] [id number] [facility] 05:42:00 12:26:00 Emergency r Jah 01 l [facility] 2013-03-14 2013-03-14 Outpatient nullFlavo [facility] [id number] [facility] 10:55:00 23:59:00 [facility] 00 l Jah Results Test Description Test Time Test Comments Results Result Comments Source POCT-GLUCOSE METER 2021-08-07 11:42:36 Test Item Value Reference Range Interpretation Comme nts POC-GLUCOSE METER (BEAKER) 212 mg/dL 70-110 H : TESTED AT [facility] [address] [facility] (test code = 1538) [facility] [address]: Group Controller/Techni ang ID = [id number] for TerenceJared POCT-GLUCOSE [id number] 06:16:02 Test Item Value Reference Range Interpretation Comments POC-GLUCOSE METER 157 mg/dL 70-110 H : TESTED A T [facility] [address] (BEAKER) (test code [facility], = 1538) [facility] 77 384: Group Controller/Techni ang ID = [id number] for Maureen Marquez COMPREHENSIVE METABOLIC [id number] 04:13:11 Test Item Value Reference Range Interpretation [...] S NOT APPLICABLE FOR DIALYSIS PATIEN TS. Group Controller ID - [id number] W/PLT COUNT & AUTO [id number] 03:48:25 Test Item Value Reference Range Interpretation [...] PERCENT (BEAKER) (test code = 2801) POCT-GLUCOSE [id number] 23:28:43 Test Item Value Reference Range Interpretation Comments POC-GLUCOSE METER 122 mg/dL 70-110 H : TESTED A T [facility] [address] (BEAKER) (test code [facility], = 1538) [place] [address] 384: Group Controller/Techni ang ID = [id number] for Tasha Cooper POCT-GLUCOSE [id number] 20:44:59 Test Item Value Reference Range Interpretation Comments POC-GLUCOSE METER 163 mg/dL 70-110 H : TESTED A T [facility] [address] (BEAKER) (test code [facility], = 1538) [place] [address] 384: Group Controller/Techni ang ID = [id number] for Maureen Marquez MR, BRAIN, [id number] 19:28:00Unlisted Reason for Exam - Click Yes and Enter Reason Below->No [facility] CENTERName: ANGE PATEL SEPTEMBER : 1960 Sex: FFINAL REPORT MR, [...] significant associated mass effect. Signed: Jaylene Cross MDReport Verified Date/Time: 08/06/2021 19:28:21 HEMOGLOBIN [id number] 18:37:12 Test Item Value Reference Range Interpretation Comments HEMOGLOBIN A1C (BEAKER) (test code = 6.7 % 4.3-6.1 H 368) Group Controller ID - [id number] 17:37:14 Test Item Value Reference Range Interpretation Comments POC-GLUCOSE METER 180 mg/dL 70-110 H : TESTED A T [facility] [address] (BEAKER) (test code [facility], = 1538) [facility] 77 384: Group Controller/Techni ang ID = [id number] for Yaima Ocampo VITAMIN [id number] 15:57:57 Test Item Value Reference Range Interpretation Comments VITAMIN B12 (BEAKER) (test code = 167 pg/mL 211-911 L 774) Group Controller ID - [id number] 15:25:35 Test Item Value Reference Range Interpretation [...] Borderline 130-159 High 160-189 Very High >=190 Group Controller ID - [id number] [id number] 15:16:20 Test Item Value Reference Range Interpretation Comments RBC UA (BEAKER) (test code = 519) < /HPF WBC UA (BEAKER) (test code = 520) 1 /HPF MUCUS (BEAKER) (test code = 1574) Rare SQUAMOUS EPITHELIAL (BEAKER) (test 2 /HPF code = 516) Group Controller ID - techURINALYSIS WITH MICROSCOPIC IF [id number] 15:16:18 Test Item Value Reference Range Interpretation [...] = 463) SOURCE(BEAKER) (test code = 2795) Group Controller ID - [auto]Group Controller ID - techPOCT-GLUCOSE [id number] 12:57:53 Test Item Value Reference Range Interpretation Comments POC-GLUCOSE METER 152 mg/dL 70-110 H : TESTED A T [facility] [address] (BEAKER) (test code [facility], = 1538) [place] [address] 384: Group Controller/Techni ang ID = [id number] for Yaima Ocampo TISSUE [id number] 13:13:45Surgical Pathology Report Case: [id number] Authorizing Provider: Bairon Balderas MD Collected: 12/10/2020 01:53 PM Ordering Location: [facility] PERIOPERATIVE Received: 12/10/2020 02:08 PM SERVICES Pathologist: [...] FOLLOWING GENES : BRCA1, BRCA2, ERBB2, ESR1, MPU7COFip scanned [employer] ReportAddendum electronically signed by Gretel Saenz MD on 03/09/2021 at 1:13 PMREASON FOR ADDENDUM : TO REPORT RESULTS OF MET AND PTENMET AMPLIFICATION : NOT DETECTED - MET (7q31) SIGNALS PER NUCLEUS : 2.1 - CEN7 SIGNALS PER NUCLEUS : 1.8 - MET/CEN7 SIGNAL RATIO : 1.1PTEN DELETION : DETECTEDSee scanned [employer] ReportAddendum electronically signed by Gretel Saenz MD on 03/02/2021 at 9:35 AMREASON FOR ADDENDUM: TO REPORT PD- L1 RESULT.PD-L1 22C3 FDA (KEYTRUDA) FOR TNBC :CPS <10NO PD-L1 EXPRESSIONCombined Positive Score : 4See scanned [employer] Result Addendum electronically signed by Gretel Saenz [...] MMR proteins: 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) 70813 X 1, 14055 x 3 Addendum electronically signed by Gretel Saenz MD on 02/22/2021 at 9:17 AMREASON FOR ADDENDUM: TO REPORT HER2 FISH RESULT.HER2 AMPLIFICATION: NEGATIVE (NON-AMPLIFIED)RATIO (HER2:CEP17): 1.2AVERAGE NUMBER HER2 SIGNALS/ NUCLEUS: 3.0AVERAGE NUMBER CEP17 SIGNALS/NUC LEUS: 2.5See scanned [employer] Result Addendum electronically signed by Gretel Saenz [...] FOR CARCINOMA Signing Pathologist Direct Phone Line: [phone] signed by Gretel Saenz MD on 12/15/2020 at 9:31 AMTUMOR STAGING (PATHOLOGY) S/P NEOADJUVANT THERAPYAnatomic site of tumor : LEFT CHEST WALL / BREASTHistologic type : Infiltrating ductal carcinoma, no special typeHistologic grade : G3, poorly differentiatedTumor size : 29mmPrimary tumor (T) : rpgI3Stmgb node (N) : mkvE1Djopnga : NegativeLYMPH NODESUMMARYTotal # of sentinel lymph [...] OF THE BREAST: COMPLETE EXCISION - All Tvznzduku9fh Edition - Protocol posted: 06/19/2019SPECIMEN Procedure: Excision [...] Performed on Case Number: BLOCK A11 A. 04556 X 1; 22403 X 1; 20405 X 4B. 51712 X 1C. 99724 X 1D. 25865 X 1Malignant neoplasm of left breast in [...] BLOCK A11ER - NEGATIVEPR - NEGATIVEHER2 - [id number] - HIGHCAP REGULATION: FIXATION TIME FOR BIOMARKERS [...] using clones SP1, 1E2, 4B5 (FDA Approved [employer]) and 30-9 respectively utilizing the ultraView Aurora DAB Detection Kit from [employer] [place], [place].Control Slides Examined: In- house known ER, SC, HER2 and Ki67 positive controls were evaluated along with test tissue. These control slides run alongside of the patients sample show appropriate staining.Interpretive Criteria: The staining results are according to the ASCO/CAP guidelines for HER2 (see Yovana CESPEDES, Stanley, Day VIZCAINO, et al. HER 2 Testing in Breast Cancer: ASCO/CAP Focused Update. Arch Pathol Lab Med. 2018;142(11):0196-1970. doi:10.5858/arpa.6463-1353-RX) and ER/SC (see Day VIZCAINO, Monica Maldonado, et al. ER and SC Testing in Breast Cancer: ASCO/CAP Guideline Update. J Clin Oncol. 2020;38(12):5549-8558. doi:10.1200/JCO.19.78375).By ASCO/CAP guidelines, ER and SC "positive" requires greater or equal to 1% [...] in <= 10% of invasive tumor cells.The ER/SC Proportion Score indicates the proportion of positive [...] ER status.Immunohistochemistry technical testing was performed at [facility], Pathology Laboratory where it was [...] to perform high complexity clinical laboratory testing. [facility], Department of Pathology, [address] [place] [address], [facility], [address] [place] [address], [facility], [facility] of Pathology, [address] [place] [address], a. Received fresh labeled with the patient's [...] tissue. No other discrete mass is identified. Teacher'S Aide sections are submitted.Time in formalin: 12/10/20 at 3:00 PM.Ink code:Blue: Superficial superior margin Red: Superficial inferior marginBlack: DeepSection code:A1: Perpendicular sections of the medial marginA2: Fibrotic area from slice 5A3: Fibrotic area from slice 6A4: Fibrotic area with adiposenodule from slice 8A5: Fibrotic area from slice 9A6: Fibrotic area from slice 94D9-F3: Bookend sections to mass from slice 11 submitted superior to inferiorA9: Superficial superior margin with skin from slice 12A10: Superficial inferior margin with skin from slice 21N74-J99: Mass from superior to inferior with deep margin from slice 85A34-V12: Thinned section of mass from slice 12, submitted superiorto inferior with deep xrcubnV51: Superficial superior margin with skin from slice 13A16: Superficialinferior margin with skin from slice 15M38-X37: Mass from superior to inferior with deep margin fromslice 13, area around xmwdJ15-V26: Thinned section of mass from slice 13, submitted superior to inferior with deep lyqktnS32-O79: Bookend sections to mass from slice 14 submitted superior to vcrzconeT58: Fibrotic area with adipose nodule from slice [...] code: True margin black and opposite surface orange.Teacher'S Aide sections are submitted from the specimen in [...] code: Sutured portion of the specimen inked blue.Teacher'S Aide sections are submitted from the specimen.Section code: C1, five whole possible nodes; C2, one indurated hernández-white to echeverria-yellow area, bisected; C3, outreach representative sections of the matted nodes; C4, [...] in its entirety in cassettes D1-D4. KM/ewPOCT-GLUCOSE [id number] 07:24:00 Test Item Value Reference Range Interpretation Comments POC-GLUCOSE METER 138 mg/dL 70-110 H : TESTED A T [facility] 6720 (BEAKER) (test code = [place], 1538) [address]: Group Controller/Techni ang ID = [id number] for Lisbeth Tran BASIC METABOLIC [id number] 06:41:00 Test Item Value Reference Range Interpretation [...] S NOT APPLICABLE FOR DIALYSIS PATIEN TS. Group Controller ID - RALF [id number] 06:41:00 Test Item Value Reference Range Interpretation Comments MAGNESIUM (BEAKER) (test code = 1.5 mg/dL 1.6-2.6 L 627) Group Controller ID - RALF [id number] 06:41:00 Test Item Value Reference Range Interpretation Comments PHOSPHORUS (BEAKER) (test code = 1.9 mg/dL 2.3-4.7 L 604) Group Controller ID - RALF MCBC W/PLT COUNT & AUTO [id number] 06:12:00 Test Item Value Reference Range Interpretation [...] PERCENT (BEAKER) (test code = 2801) CALCIUM, [id number] 06:07:00 Test Item Value Reference Range Interpretation Comments CALCIUM IONIZED (BEAKER) (test 1.08 mmol/L 1.12-1.27 L code = 698) PH, BLOOD (BEAKER) (test code = 7.44 1810) POCT-GLUCOSE [id number] 22:12:00 Test Item Value Reference Range Interpretation Comments POC-GLUCOSE METER 219 mg/dL 70-110 H : TESTED A T [facility] 6720 (BEAKER) (test code = [facility], 153) [address]: Group Controller/Techni ang ID = [id number] for Christina mathewstong Carlos Manuel POCT-GLUCOSE [id number] 15:48:00 Test Item Value Reference Range Interpretation Comments POC-GLUCOSE METER 183 mg/dL 70-110 H : TESTED A T [facility] 6720 (BEAKER) (test code = [facility], 153) 199[address]: Group Controller/Techni ang ID = [id number] for Marc herediabishnuLisbeth POCT-GLUCOSE [id number] 11:07:00 Test Item Value Reference Range Interpretation Comments POC-GLUCOSE METER 188 mg/dL 70-110 H : TESTED A T [facility] 6720 (BEAKER) (test code = [facility], [facility]) 36558: Group Controller/Techni ang ID = [id number] for Ag Lisbeth garay POCT-GLUCOSE [id number] 08:00:00 Test Item Value Reference Range Interpretation Comments POC-GLUCOSE METER 193 mg/dL 70-110 H : TESTED A T [facility] 6720 (BEAKER) (test code = [facility], [facility]) 382[address]: Group Controller/Techni ang ID = [id number] for Ag Jesenia garayn POCT-GLUCOSE [id number] 00:26:00 Test Item Value Reference Range Interpretation Comments POC-GLUCOSE METER 221 mg/dL 70-110 H : TESTED A T [facility] 6720 (BEAKER) (test code = [facility], [facility]) 23415: Group Controller/Techni ang ID = [id number] for PE ML, BEKA POCT-GLUCOSE [id number] 21:04:00 Test Item Value Reference Range Interpretation Comments POC-GLUCOSE METER 203 mg/dL 70-110 H : TESTED A T [facility] 6720 (BEAKER) (test code = [facility], [facility]) 66869: Group Controller/Techni ang ID = [id number] for SA CO, PEREZ POCT-GLUCOSE [id number] 10:45:00 Test Item Value Reference Range Interpretation Comments POC-GLUCOSE METER 140 mg/dL 70-110 H : TESTED A T [facility] 6720 (BEAKER) (test code = [facility], [facility]) [address]367: Group Controller/Techni ang ID = [id number] for CONNIE MAYORGA SARS-COV2/RT-PCR ([facility])2020-12-10 03:39:00 Test Item Value Reference Range Interpretation Comments SARS-COV2/RT-PCR (test code = Negative Negative [id number]) Negative result for this test determines that [...] Healthcare Providers:https://www.molecular.mo/josué/RT SARS-CoV-2 HCP Fact Sheet 51- 314374.pdfFact Sheet for Healthcare Patients:https://www.molecular.mo/josué/RT SARS-CoV-2 Patient Fact Sheet EN 51-340486G9.ticYXFHXCPBWUSS2178-11-49 13:09:00 Test Item Value Reference Range Interpretation Comments SODIUM (BEAKER) (test code = 381) 142 meq/L 136-145 POTASSIUM (BEAKER) (test code = 4.1 meq/L 3.5-5.1 379) CHLORIDE (BEAKER) (test code = 382) 105 meq/L 98-107 CO2 (BEAKER) (test code = 355) 25 meq/L 22-29 [facility]2021-08-18 13:09:00 Test Item Value Reference Range Interpretation Comments GLUCOSE RANDOM (BEAKER) (test code 161 mg/dL 70-105 H = 652) Group Controller ID - WILBERT FBUN AND CREATININE [id number] 13:09:00 Test Item Value Reference Range Interpretation Comments BLOOD UREA NITROGEN 12 mg/dL 7-21 (BEAKER) (test code = 354) CREATININE (BEAKER) 0.75 mg/dL 0.57-1.25 (test code = 358) BUN/CREAT RATIO 16 For a normal (BEAKER) (test code individu al on a = [id number]) normal diet, t he reference inter zara for the mass ra corina ranges between 12:1 and 20:1 (BUN i n mg/dL/creatinin e in mg/dL) EGFR (BEAKER) (test 96 mL/min/1.73 ESTIMA ALVARO GFR IS code = 1092) sq m NOT ACCURATE CREATININE CLEARANCE IN PREDICTING GLOMERULAR FILTRATION RATE . ESTIMATED GFR I S NOT APPLICABLE FOR DIALYSIS PATIEN TS. Group Controller ID - WILBERT [id number] 12:46:00 Test Item Value Reference Range Interpretation Comments HEMOGLOBIN (BEAKER) (test code = 12.0 GM/DL 11.2-15.7 410) Group Controller ID - [id number] 14:23:00 Test Item Value Reference Range Interpretation Comments PT (test code = PT) 13.8 s 12.0-14.7 [facility]GO[facility]CYKR1623-[facility]-03 14:23:00 Test Item Value Reference Range Interpretation Comments INR (test code = INR) 1.06 1 0.85-1.17 [facility]79 14:23:00 Test Item Value Reference Range Interpretation Comments PTT (test code = PTT) 28.8 s 22.9-35.8 [facility] HospitalZdjlsztLUXPKVFZDQ8350-82-32 14:23:00 Test Item Value Reference Range Interpretation Comments PT (test code = PT) 13.8 s 12.0-14.7 [facility] HospitalNshzoopNSBOQEZALE2653-01-63 14:23:00 Test Item Value Reference Range Interpretation Comments INR (test code = INR) 1.06 1 0.85-1.17 [facility]GwrngbdOBYKQACDWS7935-60-55 14:23:00 Test Item Value Reference Range Interpretation Comments PTT (test code = PTT) 28.8 s 22.9-35.8 [facility]bd[facility]rsVYJQAPFIMU7828-58-22 14:23:00 Test Item Value Reference Range Interpretation Comments PT (test code = PT) 13.8 s 12.0-14.7 [facility] CenterMzdbrlkUOOBTUIOYO3280-10-17 14:23:00 Test Item Value Reference Range Interpretation Comments INR (test code = INR) 1.06 1 0.85-1.17 [facility] CenterUklrffbNPGURXNCWH4864-21-07 14:23:00 Test Item Value Reference Range Interpretation Comments PTT (test code = PTT) 28.8 s 22.9-35.8 [facility] CenterTfikopwHCVCAKPOMO9629-45-40 14:23:00 Test Item Value Reference Range Interpretation Comments PT (test code = PT) 13.8 s 12.0-14.7 [facility] CenterOudapyiQKDTYHCUII4986-11-92 14:23:00 Test Item Value Reference Range Interpretation Comments INR (test code = INR) 1.06 1 0.85-1.17 [facility] CenterMejtlxoZLEXHLEAWG1588-27-52 14:23:00 Test Item Value Reference Range Interpretation Comments PTT (test code = PTT) 28.8 s 22.9-35.8 [facility] CenterXgaowliZVOBYOKORM0833-46-17 14:23:00 Test Item Value Reference Range Interpretation Comments PT (test code = PT) 13.8 s 12.0-14.7 [facility] CenterZessuspLGCGODHXAR3912-17-16 14:23:00 Test Item Value Reference Range Interpretation Comments INR (test code = INR) 1.06 1 0.85-1.17 [facility] CenterVeeoiikQINJVJEMNJ1016-52-07 14:23:00 Test Item Value Reference Range Interpretation Comments PTT (test code = PTT) 28.8 s 22.9-35.8 [facility] CenterNdkgwuxDNXBDEKUDW8521-04-05 14:23:00 Test Item Value Reference Range Interpretation Comments PT (test code = PT) 13.8 s 12.0-14.7 [facility] CenterVnmrmkmDEWJEDGQEO6505-76-05 14:23:00 Test Item Value Reference Range Interpretation Comments INR (test code = INR) 1.06 1 0.85-1.17 [facility] CenterPpyyurdZYPGBSFFRF2249-82-94 14:23:00 Test Item Value Reference Range Interpretation Comments PTT (test code = PTT) 28.8 s 22.9-35.8 [facility]2015-12-05 07:00:00Performed (03/28/15 1:00 AM) [facility] [id number] 07:00:00Negative (03/28/15 1:00 AM) [facility] [id number] 07[facility] [id number] 07:00:00Negative (03/28/15 1:00 AM)[facility] [id number] 07:00:00Negative *NA*(03/28/15 1:00 AM)[facility] [id number] 07:00:00Negative (03/28/15 1:00 AM)[facility] [id number] 07:00:00Trace *ABN*(03/28/15 1:00 AM)[facility] [id number] 07:00:00Negative (03/28/15 1:00 AM)[facility] [id number] 07:00:00 Test Item Value Reference Range Interpretation Comments UA pH (test code = UA pH) 5.5 1 5.0-8.0 [facility] [id number] 07:00:00Negative (03/28/15 1:00 AM) [facility] [id number] 07:00:00Slight Cloudy (03/28/15 1:00 AM)[facility] [id number] 07:00:00>=1.030 *ABN*(03/28/15 1:00 AM)[facility] [id number] 07:00:00Yellow *NA*(03/28/15 1:00 AM)[facility] [id number] 07:00:00Performed (03/28/15 1:00 AM)[facility] [id number] 07:00:00Negative (03/28/15 1:00 AM)[facility] [id number] 07:00:000.2[facility] [id number] 07:00:00Negative (03/28/15 1:00 AM)[facility] [id number] 07:00:00Negative *NA*(03/28/15 1:00 AM)[facility] [id number] 07:00:00Negative (03/28/15 1:00 AM)[facility] [id number] 07:00:00Trace *ABN*(03/28/15 1:00 AM)[facility] [id number] 07:00:00Negative (03/28/15 1:00 AM)[facility] [id number] 07:00:00 Test Item Value Reference Range Interpretation Comments UA pH (test code = UA pH) 5.5 1 5.0-8.0 [facility] VQZFY6681-71-02 07:00:00Negative (03/28/15 1:00 AM) [facility] RJLWF6468[facility]12-82 07:00:00Slight Cloudy (03/28/15 1:00 AM)[facility] TJAPI8247-33-83 07:00:00>=1.030 *ABN*(03/28/15 1:00 AM)[facility] YKJWV6318-50-69 07:00:00Yellow *NA*(03/28/15 1:00 AM)[facility] YEEEC9672-78-58 07:00:00Performed (03/28/15 1:00 AM)[facility] VWQXJ3275-59-28 07:00:00Negative (03/28/15 1:00 AM)[facility] ZPATO6742-54-54 07:00:000.2[facility] UHGVC6318-78-84 07:00:00Negative (03/28/15 1:00 AM)[facility] JQXZN4492-29-93 07:00:00Negative *NA*(03/28/15 1:00 AM)[facility] XMGFX0769-85-14 07:00:00Negative (03/28/15 1:00 AM)[facility] FEYVH0916-51-08 07:00:00Trace *ABN*(03/28/15 1:00 AM)[facility] TZQCE7720-56-22 07:00:00Negative (03/28/15 1:00 AM)[facility] LMMDW2022-57-25 07:00:00 Test Item Value Reference Range Interpretation Comments UA pH (test code = UA pH) 5.5 1 5.0-8.0 [facility] FGVTR0268-66-64 07:00:00Negative (03/28/15 1:00 AM) [facility] UCYUM2471-41-33 07:00:00Slight Cloudy (03/28/15 1:00 AM)[facility] QDKPF1423-63-81 07:00:00>=1.030 *ABN*(03/28/15 1:00 AM)[facility] HWNAV3643-15-72 07:00:00Yellow *NA*(03/28/15 1:00 AM)[facility] OXRNO7440-33-37 07:00:00Performed (03/28/15 1:00 AM)[facility] OEAWY7078-42-72 07:00:00Negative (03/28/15 1:00 AM)[facility] OPXOZ1565-92-39 07:00:000.2[facility] ORKWI8387-10-35 07:00:00Negative (03/28/15 1:00 AM)[facility] MERKN8426-01-29 07:00:00Negative *NA*(03/28/15 1:00 AM)[facility] OTYCT2917-73-89 07:00:00Negative (03/28/15 1:00 AM)[facility] DKICA5377-18-75 07:00:00Trace *ABN*(03/28/15 1:00 AM)[facility] MRZYX0424-60-94 07:00:00Negative (03/28/15 1:00 AM)[facility] ZQXVT1511-04-50 07:00:00 Test Item Value Reference Range Interpretation Comments UA pH (test code = UA pH) 5.5 1 5.0-8.0 [facility] IQUNY1491-79-27 07:00:00Negative (03/28/15 1:00 AM) [facility] CUQFO6099-28-56 07:00:00Slight Cloudy (03/28/15 1:00 AM)[facility] NGJCZ4906-65-03 07:00:00>=1.030 *ABN*(03/28/15 1:00 AM)[facility] INRCZ2442-97-84 07:00:00Yellow *NA*(03/28/15 1:00 AM)[facility] AEGTA3068-73-67 07:00:00Performed (03/28/15 1:00 AM)[facility] OYLTF8337-66-36 07:00:00Negative (03/28/15 1:00 AM)[facility] MXXJJ8124-71-03 07:00:000.2[facility] AJMCT7527-41-53 07:00:00Negative (03/28/15 1:00 AM)[facility] NZOYT8795-30-92 07:00:00Negative *NA*(03/28/15 1:00 AM)[facility] PURZT2640-82-75 07:00:00Negative (03/28/15 1:00 AM)[facility] RIEXW3210-33-08 07:00:00Trace *ABN*(03/28/15 1:00 AM)[facility] ZHGUV4629-79-16 07:00:00Negative (03/28/15 1:00 AM)[facility] ZTOLM3800-17-17 07:00:00 Test Item Value Reference Range Interpretation Comments UA pH (test code = UA pH) 5.5 1 5.0-8.0 [facility] OSQZI2493-07-54 07:00:00Negative (03/28/15 1:00 AM) [facility] RGGJJ6174-68-22 07:00:00Slight Cloudy (03/28/15 1:00 AM)[facility] BSCBI7188-44-50 07:00:00>=1.030 *ABN*(03/28/15 1:00 AM)[facility] VEBYV1580-80-67 07:00:00Yellow *NA*(03/28/15 1:00 AM)[facility] KQIXZ1854-66-70 07:00:00Performed (03/28/15 1:00 AM)[facility] LYQWA8391-67-53 07:00:00Negative (03/28/15 1:00 AM)[facility] WSHNJ8947-76-99 07:00:000.2[facility] MPSXO7199-50-16 07:00:00Negative (03/28/15 1:00 AM)[facility] APYPB6293-88-71 07:00:00Negative *NA*(03/28/15 1:00 AM)[facility] AFLPU3418-01-74 07:00:00Negative (03/28/15 1:00 AM)[facility] AHSNG3751-13-37 07:00:00Trace *ABN*(03/28/15 1:00 AM)[facility] PWWAB7662-64-10 07:00:00Negative (03/28/15 1:00 AM)[facility] XAOGP2563-57-16 07:00:00 Test Item Value Reference Range Interpretation Comments UA pH (test code = UA pH) 5.5 1 5.0-8.0 [facility] SDBZB4926-21-11 07:00:00Negative (03/28/15 1:00 AM) [facility] XMBAJ8025-90-75 07:00:00Slight Cloudy (03/28/15 1:00 AM)[facility] KAUIY2723-93-87 07:00:00>=1.030 *ABN*(03/28/15 1:00 AM)[facility] WIQAN8693-45-77 07:00:00Yellow *NA*(03/28/15 1:00 AM)[facility] WLSVV8552-90-17 06:33:52128Akzhvwsb HermannCHEM WMOSZ6817-20-24 06:33:0014[facility] ATPKL6342-64-29 06:33:007.8 [facility] PYOIN9303-34-81 06:33:001.2[facility] PANEL 2015-03-28 06:33:003.0[facility] OJQBL3738-85-75 06:33:0087[facility] KQDPH0842-57-18 06:33:10061Llnvsafu HermannCHEM HMFKN4659-26-24 06:33:000.3[facility] XCUAC6577-96-49 06:33:0026[facility] MXZQC6803-70-05 06:33:008[facility] AUFVT2186-79-29 06:33:003.6 [facility] IXQQH9283-03-02 06:33:008.9[facility] PANEL 2015-03-28 06:33:006.6[facility] FENDX2055-90-24 06:33:44941Rooxkmqb HermannCHEM PIKQK3749-73-25 06:33:0028[facility] PYJQO9281-53-64 06:33:000.88[facility] WENNS6774-02-44 06:33:44013Bxkcxyhk HermannCHEM AEHYP9588-47-58 06:33:003.8[facility] KODRV3767-03-48 06:33:0012 [facility] JIQJE9383-78-14 06:33:96811Gohghgec HermannHEMATOLOGY 2015-03-28 06:33:0050.4[facility] ZfnwntsHTFWCQCFUW1253-24-39 06:33:007.0[facility] VvmigxuIFXMSHCJMN1320-11-14 06:33:003.9[facility] DyvewkzZGJARPRYJR5118-41-58 06:33:007.9[facility] GwulwdbKMNTLXHKNT2378-78-64 06:33:0033.8[facility] IYYERZJVQF2570-28-25 06:33:000.9[facility] NsqiqkjOTYWPMJKSY5151-42-12 06:33:000.5 [facility] WbtcskqZQWAZZIZJP5216-83-67 06:33:000.6[facility]annHEMAT[facility] 2015-03-28 06:33:000.1[facility] VqihnmlAPUGGDYWIV9371-71-37 06:33:002.6[facility] IyuuvjsKEVRYJJYYY7865-54-74 06:33:0013.3[facility] UuhqsjoPUQORNFFGH6391-37-70 06:33:004.70[facility] WaztwgkOMENKCMPEY9178-60-40 06:33:007.7[facility] Jah HIZEHGNRPY0072-60-13 06:33:0013.0[facility] AfxpyxqIJJRTBEMNT4866-00-05 06:33:00 32.5[facility] XtjmmqaTACCJYXGHB9090-78-75 06:33:0040.9[facility] 2015-03-28 06:33:00 Test Item Value Reference Range Interpretation Comments MCH (test code = MCH) 28.3 pg 27.0-31.0 [facility] OtusvbuSXJHFWQTRM1029-47-88 06:33:0087.0[facility]ann[facility] 2015-03-28 06:33:008.2[facility] EomwinvSFSRUGURRT0952-82-74 06:33:81029Yljcnmcp HermannCHEM FDHWX4478-75-64 06:33:63056Gyzesjow HermannCHEM FWNYT1085-87-09 06:33:0014[facility] YKKEO6037-87-91 06:33:007.8[facility] ATZXL5931-74-25 06:33:001.2[facility] YISZB3062-21-41 06:33:003.0 [facility] KJNPS8254-15-11 06:33:0087[facility] PANEL 2015-03-28 06:33:06935Gmperdez HermannCHEM ZHTYI1904-75-79 06:33:000.3[facility] LWHWD3688-59-94 06:33:0026[facility] FSATS6435-86-90 06:33:008[facility] EQWIP7384-50-93 06:33:003.6[facility]CHE[facility] OILUB4441-21-63 06:33:008.9[facility] FUOBO2890-06-85 06:33:006.6 [facility] GINXH8914-10-73 06:33:95412Wupygytd HermannCHEM PANEL 2015-03-28 06:33:0028[facility] IUBIG6413-23-84 06:33:000.88[facility]CHE[facility] HNQQO3881-49-83 06:33:59834Sxtwgzvn HermannCHEM XYDLF9183-11-07 06:33:003.8[facility]annCHE[facility] EUDUE0387-91-41 06:33:0012[facility]annCHE[facility] IEBRI7070-44-79 06:33:17417Fjtrhljh IkifkpeMHKBWFMDNR3670-60-27 06:33:0050.4 [facility] ElkxpiyJNPJSUWJTA2780-52-38 06:33:007.0[facility]annHEMATOLOGY 2015-03-28 06:33:003.9[facility] GxukahbLZEIQLEVLC3130-10-06 06:33:007.9[facility] NjyiwrzZKOTSOOSVU1692-80-43 06:33:0033.8[facility] TlqggcpZSYHIIEJBA4828-56-73 06:33:000.9[facility] JrymbccIJGZKAJMZR9283-84-31 06:33:000.5[facility] TDLPJAJSPU1154-06-36 06:33:000.6[facility] MddbbryQSZYZARGKA8162-20-09 06:33:000.1 [facility] QuytjpaTGQYABMAUO9638-05-31 06:33:002.6[facility]annHEMATOLOGY 2015-03-28 06:33:0013.3[facility] EdxvofxPDTYLEUCYF2051-66-68 06:33:004.70[facility] LewgodaBRMLYTQXVT0994-61-20 06:33:007.7[facility] GhxugaoULQLFMVVNO6088-08-34 06:33:0013.0[facility] CoqppuzSGNYMBQWSZ2318-79-73 06:33:0032.5[facility] Jah MJUIUQSSWP2642-55-50 06:33:0040.9[facility] EvtgoriXHULECMDUU8332-92-72 06:33:00 Test Item Value Reference Range Interpretation Comments MCH (test code = MCH) 28.3 pg 27.0-31.0 [facility] EcgkoqhLWZVTWOETU5967-17-36 06:33:0087.0[facility] 2015-03-28 06:33:008.2[facility] QqstbotSHNUGKPSFV6530-39-40 06:33:61765Upogjtlz HermannCHEM VYPKB0107-68-59 06:33:66365Tiijlojh [facility]annCHEM GUIPR6847-90-60 06:33:0014[facility] NPPWE8814-74-99 06:33:007.8[facility] OGCQR2316-85-32 06:33:001.2[facility] GTABS0034-97-12 06:33:003.0 [facility] RMMUR0516-10-49 06:33:0087[facility]CHE[facility] PANEL 2015-03-28 06:33:37148Uabeturi HermannCHEM WZLMH9641-16-51 06:33:000.3[facility] YYCIP2737-33-09 06:33:0026[facility] IJVNA7733-95-23 06:33:008[facility] YGUNE8010-86-91 06:33:003.6[facility] BMQIT1028-56-99 06:33:008.9[facility] FYEAM6675-24-91 06:33:006.6 [facility] YEKYU6206-48-86 06:33:44873Dxyrurnh HermannCHEM PANEL 2015-03-28 06:33:0028[facility] TUKBG2798-54-81 06:33:000.88[facility] WXRLA5642-39-13 06:33:76244Dyxzmatz HermannCHEM GLLFR4832-37-13 06:33:003.8[facility] RPZBZ7569-72-25 06:33:0012[facility] QQSOX4882-98-72 06:33:56385Igxqawww RbavygjKUIHMTPLZH1189-04-87 06:33:0050.4 [facility] ByoxjpwMFFJWRGBTX6452-81-06 06:33:007.0[facility]annHEMATOLOGY 2015-03-28 06:33:003.9[facility] AdoerfhNACXECFRCX9021-55-30 06:33:007.9[facility] DeujdpaDMJVZQEPYD5130-41-62 06:33:0033.8[facility] UukrdjmLSJHDGELOQ6475-16-53 06:33:000.9[facility] LbupnqoXWOTZOEHGR3604-63-56 06:33:000.5[facility] Jah XTTOOJBPIS4639-31-66 06:33:000.6[facility] CheaxpfCBHKGDSYDB8626-87-08 06:33:000.1 [facility] QxbdhzxLXEYQCZETG2754-98-44 06:33:002.6[facility]annHEMATOLOGY 2015-03-28 06:33:0013.3[facility] VbsakotCGWLMWHPEC7969-17-22 06:33:004.70[facility] RyhyfxiGUZBYIEFKQ4954-05-28 06:33:007.7[facility] BreouodGRGFJAPMQA8961-43-00 06:33:0013.0[facility] MmmrsemOVMCSMRNFZ5460-05-70 06:33:0032.5[facility] YWXFXIMLHT4985-71-08 06:33:0040.9[facility] CtdcsfgEBETTPBTPP4104-13-70 06:33:00 Test Item Value Reference Range Interpretation Comments MCH (test code = MCH) 28.3 pg 27.0-31.0 [facility] SnsbmyhMVBKECLKDF3130-22-54 06:33:0087.0[facility]HE[facility] 2015-03-28 06:33:008.2[facility] LyfjgiiQMUZZXLKAT9335-16-68 06:33:74059Nzgmnnyj [facility]annCHEM HJZDO3701-65-29 06:33:54911Rosaarrx [facility]annCHE[facility] MMUAV3717-36-81 06:33:0014[facility]annCHE[facility] KETIJ5942-91-85 06:33:007.8[facility]annCHE[facility] SPIOZ2795-62-44 06:33:001.2[facility]annCHE[facility] TWIDD5056-75-17 06:33:003.0 [facility] HYSLP3949-11-36 06:33:0087[facility]annCHE[facility] PANEL 2015-03-28 06:33:68687Kqlbszte HermannCHEM WPUQF7285-28-19 06:33:000.3[facility]annCHE[facility] DVMQK1340-73-86 06:33:0026[facility]annCHE[facility] PBNWR5293-12-27 06:33:008[facility]annCHE[facility] OQCKW8829-45-58 06:33:003.6[facility]CHE[facility] MKYTO4310-48-70 06:33:008.9[facility]CHE[facility] QWETT2247-33-47 06:33:006.6 [facility] JIIXT2354-72-74 06:33:62623Jyoytkho HermannCHEM PANEL 2015-03-28 06:33:0028[facility]CHE[facility] DHAGH7802-43-83 06:33:000.88[facility]annCHE[facility] ADAMC2465-48-44 06:33:03783Tbonhsmq [facility]annCHE[facility] IRUJH2208-48-88 06:33:003.8[facility]CHE[facility] VGEOH0302-95-54 06:33:0012[facility]CHE[facility] OKAOV6697-21-02 06:33:35294Myinsxhu AeerfqpUIXCSXUMQC1011-19-29 06:33:0050.4 [facility] VdepvnhMHFAHDVAEK8177-31-59 06:33:007.0[facility]annHEMATOLOGY 2015-03-28 06:33:003.9[facility] YherguuPCUNKHKFQH7294-83-15 06:33:007.9[facility] HnwtmiyQZOUNQPZYD2269-66-28 06:33:0033.8[facility] LwamfpqIZRQZTXXUJ0777-27-73 06:33:000.9[facility] TisrgxwJATTUDPJPH5716-87-20 06:33:000.5[facility] EUOPBJUMEW3835-70-75 06:33:000.6[facility] WkgkjelEYOHDRUISP6462-93-42 06:33:000.1 [facility] PhixzkyNMRHBWOPNU5502-56-41 06:33:002.6[facility]annHEMATOLOGY 2015-03-28 06:33:0013.3[facility] KznmvhnTOBJPTEAKJ9408-75-75 06:33:004.70[facility] IeuheunWSLHTGEOBY1059-60-45 06:33:007.7[facility] FojhsrxFQPFZSRZDO7753-07-14 06:33:0013.0[facility] ZwlbwflHLIDCBEQPG4895-70-98 06:33:0032.5[facility] Jah NYCCIDOEQP8733-34-34 06:33:0040.9[facility] KuwzbbkNHYQYDVNHP1640-61-21 06:33:00 Test Item Value Reference Range Interpretation Comments MCH (test code = MCH) 28.3 pg 27.0-31.0 [facility] EvrluspGACFHOODKZ7453-01-77 06:33:0087.0[facility]annHEMAT[facility]Y 2015-03-28 06:33:008.2[facility] OuaxjsiKGFWQTOZBM9432-81-36 06:33:14859Lposftmx HermannCHEM KWXIO9346-91-00 06:33:77362Ggtdiypd [facility]annCHEM IYRZY2375-12-28 06:33:0014[facility]annCHE[facility] FAEAM9378-41-69 06:33:007.8[facility]annCHE[facility] EHDZQ3374-72-27 06:33:001.2[facility]annCHE[facility] AHUYP4618-64-58 06:33:003.0 [facility]CHE[facility] GHAYN1454-98-35 06:33:0087[facility]annCHE[facility] PANEL 2015-03-28 06:33:29028Zajugpzr HermannCHEM DWNVE6004-49-85 06:33:000.3[facility]annCHE[facility] PTRNA4946-62-09 06:33:0026[facility]annCHE[facility] WAXMH2656-19-41 06:33:008[facility]annCHE[facility] AIUVG3984-06-99 06:33:003.6[facility]annCHE[facility] TUWLP6020-43-33 06:33:008.9[facility]annCHE[facility] ZDYOQ3276-99-47 06:33:006.6 [facility]CHE[facility] DXHCF4525-76-76 06:33:79159Xqhamkqg HermannCHEM PANEL 2015-03-28 06:33:0028[facility]annCHE[facility] MLUWA6367-39-09 06:33:000.88[facility]annCHE[facility] BUCQI6782-82-71 06:33:22259Nbzqvuog HermannCHEM HVODA2812-21-82 06:33:003.8[facility]annCHEM VAFPA3829-46-26 06:33:0012[facility]annCHE[facility] XVYQF1071-53-13 06:33:21053Qgfhsano OpzjggyQVGENUEMTV0975-16-78 06:33:0050.4 [facility] KspardlCDECDTWNLN7354-14-11 06:33:007.0[facility]annHEMATOLOGY 2015-03-28 06:33:003.9[facility] UkewnjlDBQEPZDFHH6124-95-75 06:33:007.9[facility] QdfdbfpVZVBQBQBGI1660-92-85 06:33:0033.8[facility] SxbcjgmICIXGSYTUC0737-44-00 06:33:000.9[facility] KdzunupEBVGCBOZYI9554-06-80 06:33:000.5[facility] WHIHGUURYQ5027-42-41 06:33:000.6[facility] EuuwjhwGEOTIDPSUW7548-64-07 06:33:000.1 [facility] AjujuwuNTZFDHMPEU0826-12-83 06:33:002.6[facility]annHEMATOLOGY 2015-03-28 06:33:0013.3[facility] NvlauemWTIARRKHBZ1494-86-12 06:33:004.70[facility] QagfwjxZPIYPKZIUZ7067-54-14 06:33:007.7[facility] CtucppsEPANHZXUJP1180-14-66 06:33:0013.0[facility] UptjfwfQROPHUQIHX3477-36-37 06:33:0032.5[facility] Jah ANGCKHWOOC8834-94-84 06:33:0040.9[facility] MsikcofQAZPRWBIVC3828-68-47 06:33:00 Test Item Value Reference Range Interpretation Comments MCH (test code = MCH) 28.3 pg 27.0-31.0 [facility] MrossoeNELUZYBKCF6446-97-27 06:33:0087.0[facility]annHEMATOLOGY 2015-03-28 06:33:008.2[facility] PmxwyscVXWXWXEPTD4626-73-40 06:33:36353Oagweqzk HermannCHEM KHWSZ0274-13-34 06:33:77698Zlhkovqn HermannCHEM OEHLC3520-93-57 06:33:0014[facility]annCHEM SVVRN4269-16-01 06:33:007.8[facility]annCHEM SPTYB2231-78-71 06:33:001.2[facility]annCHEM KWLUT6958-01-40 06:33:003.0 [facility]annCHE[facility] NVCGZ1362-82-80 06:33:0087[facility]annCHEM PANEL 2015-03-28 06:33:08601Ripxbkch HermannCHEM UJLUM4218-52-13 06:33:000.3[facility]annCHEM ONMHR2440-53-43 06:33:0026[facility]annCHEM NLIDJ7401-92-45 06:33:008[facility]annCHEM TQTFL2439-92-18 06:33:003.6[facility]annCHEM KLJVQ5442-32-39 06:33:008.9[facility]annCHEM SIFWI5318-83-93 06:33:006.6 [facility]annCHEM RAMTX4073-83-14 06:33:90005Yghdlqte HermannCHEM PANEL 2015-03-28 06:33:0028[facility]annCHEM DYCEU4796-75-44 06:33:000.88[facility] HermannCHEM LRFGQ4034-21-95 06:33:27013Obogyyhs HermannCHEM CACWJ0421-29-97 06:33:003.8[facility] HermannCHEM DOGEX9853-41-05 06:33:0012[facility] HermannCHEM IYZHX7445-45-93 06:33:72448Xpnsdsqb RcfbcadABWMLFEADI1778-85-47 06:33:0050.4 [facility] JdjyrosAOCNHJZCYB7448-24-76 06:33:007.0[facility]annHEMATOLOGY 2015-03-28 06:33:003.9[facility] RvvkkfbGNXMNNEFTD7515-45-37 06:33:007.9[facility] VtlkrybDRHYLQPLYO6442-60-91 06:33:0033.8[facility] TknqmtkFCHTJHOTTR1516-17-51 06:33:000.9[facility] VeqpuzdHGWSCBDNBX6772-82-34 06:33:000.5[facility] Jah UZAFFVEZUF6047-83-97 06:33:000.6[facility] ZpjvyxkGEADLKVSQQ3320-33-29 06:33:000.1 [facility] MdouoetGAEIYIEALP3526-45-15 06:33:002.6[facility] HermannHEMATOLOGY 2015-03-28 06:33:0013.3[facility] EhnrojpABMGQZAYGI2707-46-79 06:33:004.70[facility] NblabmuQXWWEDHJAL7503-40-81 06:33:007.7[facility] OhohirfFXVOFQWATO8017-46-05 06:33:0013.0[facility] YldueeqAKBLVFWKOO7802-13-49 06:33:0032.5[facility] LFDNBMJEKD0278-32-66 06:33:0040.9[facility] ZodpwapDQBJNDPRPU4430-70-23 06:33:00 Test Item Value Reference Range Interpretation Comments MCH (test code = MCH) 28.3 pg 27.0-31.0 [facility] DcmjqhnCHFRLJGFPA9178-35-25 06:33:0087.0[facility] HermannHEMATOLOGY 2015-03-28 06:33:008.2[facility] HivejskBIUGTDQYEZ9030-60-73 06:33:63157Dktpomzk Jah
[2021-08-13] MEDS ORDERED: NA CHLORIDE 0.9% 1,000 ML ONE ×2 (13:12→14:22)
[2021-08-13] MEDS ORDERED: BISACODYL 10 MG RECTAL SUPP ONE (13:12)
[2021-08-13] MEDS ORDERED: LACTULOSE 20 GM/30 ML UCUP ONE (13:12)
[2021-08-13] MEDS ORDERED: ONDANSETRON 4 MG/2 ML VIAL ONE ×2 (13:16→15:04)
[2021-08-13 13:20] LABS: Protime INR 1.12
[2021-08-13 13:23] LABS: Absolute Lymphocytes (CBC) 1.7 K/uL (0.7-4.9); Hematocrit 41.7 % (36.0-45.0); Lymphocytes % 15.2 % (15.3-44.8); MPV 7.1 fL (7.6-11.3); RBC Red Blood Cell Count 4.97 M/uL (3.86-4.86)
[2021-08-13 13:42] LABS: Bilirubin Direct 0.1 mg/dL (0-0.2); Bilirubin Total 0.3 mg/dL (0.2-1.0); Magnesium 1.5 mg/dL (1.8-2.4); Potassium 3.7 mmol/L (3.5-5.1); Protein, Total 8.9 g/dL (6.4-8.2); Troponin High Sensitivity 13.5 pg/mL (<58.9)
[2021-08-13] MEDS ORDERED: CEFTRIAXONE 1000 MG/VIAL ONE (14:22)
[2021-08-13] MEDS ORDERED: NA CHLORIDE 0.9% 50 ML ONE (14:23)
[2021-08-13] MEDS ORDERED: Magnesium Sulfate 2gm IVPB 2 G/50 ML BAG IV ONE (14:23)
--- NOTE | 2021-08-13 14:29 | ER ---
Nurse's Notes [facility] Name: Martha Patel Age: 61 yrs Sex: Female : 1960 Arrival Date: 08/13/2021 Time: 12:38 Bed 5 Private MD: Diagnosis: Altered mental status, unspecified;Vomiting;Weakness;Hypomagnesemia;Dehydration;Tachycardia, unspecified Presentation: 08/13 12:43 Chief complaint: Patient states: vomiting all night, hasn't had a BM in three, had iw first radiation treatment for brain cancer yesterday, done at cancer center. Coronavirus screen: Client presents with at least one sign or symptom that may indicate coronavirus-19. Ebola Screen: Patient negative for fever greater than or equal to 101.5 degrees Fahrenheit, and additional compatible Ebola Virus Disease symptoms Patient denies exposure to infectious person. Patient denies travel to an Ebola-affected area in the 21 days before illness onset. No symptoms or risks identified at this time. Risk Assessment: Do you want to hurt yourself or someone else? Patient reports no desire to harm self or others. Onset of symptoms was August 13, 2021. 12:43 Method Of Arrival: Wheelchair iw 12:43 Acuity: LISANDRO 2 iw 22:46 Initial Sepsis Screen: Does the patient have a suspected source of infection? No. kd3 Patient's initial sepsis screen is negative. 22:47 Initial Sepsis Screen: Does the patient meet any 2 criteria? No. Patient's initial kd3 sepsis screen is negative. Triage Assessment: 22:45 General: Appears in no apparent distress. Behavior is calm, cooperative, appropriate kd3 for age. Pain: Complains of pain in headache. GI: Abdomen is flat. Historical: - Allergies: 12:45 No Known Allergies; iw - PMHx: 13:26 breast cancer; brain cancer; Diabetes mellitus; Hypertensive disorder; jl7 - PSHx: 13:26 Bilateral mastectomy; jl7 - Immunization history:: Adult Immunizations unknown. - Social history:: Smoking status: unknown. Screenin:45 Abuse screen: Denies threats or abuse. Denies injuries from another. Nutritional kd3 screening: No deficits noted. Tuberculosis screening: No symptoms or risk factors identified. Fall Risk Gait- Weak (10 pts.). Assessment: 22:46 GI: Bowel sounds present X 4 quads. Abd is soft X 4 quads. kd3 Vital Signs: 12:50 BP 150 / 79; Pulse 133; Resp 15; Temp 97.9; Pulse Ox 99% ; jl7 13:30 BP 119 / 77; Pulse 117; Resp 15; Pulse Ox 96% ; jl7 ED Course: 12:38 Patient arrived in ED. ds1 12:45 Triage completed. iw 12:45 Arm band placed on. iw 12:50 Dave Humphrey MD is Attending Physician. chioma 12:51 Alejandra Blankenship, RN is Primary Nurse. jl7 13:00 Inserted saline lock: 22 gauge in right forearm, using aseptic technique. Blood jl7 collected. 13:00 Initial lab(s) drawn, by mi, sent to lab. First set of blood cultures drawn by mi, EKG jl7 done, by ED staff, reviewed by Dave Humphrey MD. 13:17 SARS-COV-2 RT PCR (Document "Date of Onset" if Symptomatic) Sent. 3 13:18 Patient has correct armband on for positive identification. Bed in low position. Call 3 light in reach. Side rails up X2. Adult w/ patient. Warm blanket given. quality assurance monitor chassis on. Pulse ox on. NIBP on. 13:18 COVID swab sent to lab. dh3 13:27 XRAY Chest (1 view) In Process Unspecified. EDMS 14:11 EKG done, by ED staff, reviewed by Dave Humphrey MD. 3 14:24 Head Brain Wo Cont In Process Unspecified. EDMS 14:26 CT Abd/Pelvis - PO Contrast Only In Process Unspecified. EDMS 14:27 Edward Izaguirre is Hospitalizing Provider. chioma 22:21 Primary Nurse role handed off by Alejandra Blankenship, RN cs9 22:45 Rosamaria Figueroa, SUE is Primary Nurse. kd3 22:46 No provider procedures requiring assistance completed. Patient admitted, IV remains in kd3 place. Administered Medications: 13:13 Drug: Zofran (Ondansetron) 4 mg Route: IVP; Site: right forearm; jl7 13:30 Follow up: Response: No adverse reaction; Nausea is decreased jl7 22:48 Follow up: Response: No adverse reaction kd3 13:15 Drug: NS 0.9% 500 ml Route: IV; Rate: bolus; Site: right forearm; jl7 14:00 Follow up: Response: No adverse reaction; IV Status: Completed infusion; IV Intake: jl7 500ml 22:49 Follow up: Response: No adverse reaction kd3 14:00 Drug: Dulcolax (bisacodyl) Suppository 10 mg Route: SD; jl7 14:00 Drug: NS 0.9% 1000 ml Route: IV; Rate: 125 ml/hr; Site: right forearm; jl7 14:48 Drug: Rocephin (cefTRIAXone) 1 grams Route: IV; Rate: per protocol; Site: right forearm;jl7 15:00 Follow up: Response: No adverse reaction; IV Status: Completed infusion jl7 22:48 Follow up: Response: No adverse reaction kd3 14:48 Drug: NS 0.9% 1000 ml Route: IV; Rate: 1 bolus; Site: right forearm; jl7 16:00 Follow up: Response: No adverse reaction; IV Status: Completed infusion; IV Intake: jl7 1000ml 22:48 Follow up: Response: No adverse reaction kd3 14:55 Drug: Decadron - Dexamethasone 6 mg Route: IVP; Site: right forearm; jl7 18:53 Follow up: Response: No adverse reaction jl7 22:47 Follow up: Response: No adverse reaction kd3 22:48 Follow up: Response: No adverse reaction kd3 15:00 Drug: Magnesium Sulfate 2 grams Route: IVPB; Infused Over: 2 hrs; Site: right forearm; jl7 17:00 Follow up: Response: No adverse reaction; IV Status: Completed infusion jl7 22:48 Follow up: Response: No adverse reaction kd3 15:10 Drug: morphine 2 mg Route: IVP; Site: right forearm; jl7 15:30 Follow up: Response: No adverse reaction; Pain is decreased jl7 22:47 Follow up: Response: No adverse reaction kd3 15:10 Drug: Zofran (Ondansetron) 4 mg Route: IVP; Site: right forearm; jl7 15:30 Follow up: Response: No adverse reaction; Nausea is decreased jl7 22:47 Follow up: Response: No adverse reaction kd3 18:55 Not Given (Patient Refused): Lactulose 30 grams 45 ml PO once jl7 Intake: 14:00 IV: 500ml; Total: 500ml. jl7 16:00 IV: 1000ml; Total: 1500ml. jl7 Outcome: 14:28 Decision to Hospitalize by Provider. chioma 22:46 Admitted to Med/surg via stretcher, room . kd3 22:46 Condition: stable 22:46 Instructed on the need for admit. 22:49 Patient left the ED. kd3 Signatures: Dispatcher [employer] EDMS Dave Humphrey MD MD cha Sanford, Demi ds1 Hollie Rachel RN SUE iw Alejandra Blankenship RN RN jl7 Mayela Hanson 3 Mela Elena 9 Rosamaria Figueroa RN RN kd3 Corrections: (The following items were deleted from the chart) 18:55 14:00 NS 0.9% 1000 ml IV at 125 ml/hr in right antecubital jl7 jl7
--- NOTE | 2021-08-13 14:29 | EDPHYS ---
Physician Documentation [facility] Name: Martha Patel Age: 61 yrs Sex: Female : 1960 Arrival Date: 08/13/2021 Time: 12:38 Bed 5 Private MD: ED Physician Dave Humphrey HPI: 08/13 14:11 This 61 yrs old Black Female presents to ER via Wheelchair with complaints of chioma Delirious, Constipation. 14:11 The patient presents to the emergency department with nausea, vomiting, that is chioma continuous, abdominal pain, of the right lower quadrant and left lower quadrant, described as crampy, and does not radiate. Onset: The symptoms/episode began/occurred 3 day(s) ago. Possible causes: brain mets, sp xrt. Historical: - Allergies: 12:45 No Known Allergies; iw - PMHx: 13:26 breast cancer; brain cancer; Diabetes mellitus; Hypertensive disorder; jl7 - PSHx: 13:26 Bilateral mastectomy; jl7 - Immunization history:: Adult Immunizations unknown. - Social history:: Smoking status: unknown. ROS: 14:14 Constitutional: Negative for fever, chills, and weight loss, Eyes: Negative for injury, chioma pain, redness, and discharge, ENT: Negative for injury, pain, and discharge, Neck: Negative for injury, pain, and swelling, Respiratory: Negative for shortness of breath, cough, wheezing, and pleuritic chest pain, Back: Negative for injury and pain, : Negative for injury, bleeding, discharge, and swelling, MS/Extremity: Negative for injury and deformity, Skin: Negative for injury, rash, and discoloration, Psych: Negative for depression, anxiety, suicide ideation, homicidal ideation, and hallucinations, Allergy/Immunology: Negative for hives, rash, and allergies, Endocrine: Negative for neck swelling, polydipsia, polyuria, polyphagia, and marked weight changes, Hematologic/Lymphatic: Negative for swollen nodes, abnormal bleeding, and unusual bruising. 14:14 Cardiovascular: Positive for palpitations. 14:14 Abdomen/GI: Positive for nausea and vomiting, constipation. 14:14 Neuro: Positive for dizziness, speech changes, weakness. Exam: 14:14 Constitutional: This is a well developed, well nourished patient who is awake, alert, chioma and in no acute distress. Head/Face: Normocephalic, atraumatic. Eyes: Pupils equal round and reactive to light, extra-ocular motions intact. Lids and lashes normal. Conjunctiva and sclera are non-icteric and not injected. Cornea within normal limits. Periorbital areas with no swelling, redness, or edema. ENT: Nares patent. No nasal discharge, no septal abnormalities noted. Tympanic membranes are normal and external auditory canals are clear. Oropharynx with no redness, swelling, or masses, exudates, or evidence of obstruction, uvula midline. Mucous membranes moist. Neck: Trachea midline, no thyromegaly or masses palpated, and no cervical lymphadenopathy. Supple, full range of motion without nuchal rigidity, or vertebral point tenderness. No Meningismus. Chest/axilla: Normal chest wall appearance and motion. Nontender with no deformity. No lesions are appreciated. Respiratory: Lungs have equal breath sounds bilaterally, clear to auscultation and percussion. No rales, rhonchi or wheezes noted. No increased work of breathing, no retractions or nasal flaring. Abdomen/GI: Soft, non-tender, with normal bowel sounds. No distension or tympany. No guarding or rebound. No evidence of tenderness throughout. Back: No spinal tenderness. No costovertebral tenderness. Full range of motion. Female : Normal external genitalia. Skin: Warm, dry with normal turgor. Normal color with no rashes, no lesions, and no evidence of cellulitis. MS/ Extremity: Pulses equal, no cyanosis. Neurovascular intact. Full, normal range of motion. Psych: Awake, alert, with orientation to person, place and time. Behavior, mood, and affect are within normal limits. 14:14 Cardiovascular: Rate: tachycardic, Rhythm: regular, Pulses: no pulse deficits are appreciated, Heart sounds: normal, Edema: is not appreciated, JVD: is not appreciated. 14:14 ECG was reviewed by the Attending Physician. 14:20 ECG was reviewed by the Attending Physician. [facility] Vital Signs: 12:50 BP 150 / 79; Pulse 133; Resp 15; Temp 97.9; Pulse Ox 99% ; jl7 13:30 BP 119 / 77; Pulse 117; Resp 15; Pulse Ox 96% ; jl7 MDM: 12:50 Patient medically screened. [facility] 14:21 Differential diagnosis: Nonspecific abd pain, gastritis, viral gastroenteritis, chioma gastroenteritis. Differential Diagnosis altered mental status, sepsis. Differential diagnosis: cardiac arrhythmia, CVA, generalized weakness, idiopathic dizziness, near-syncope, sepsis, TIA. Data reviewed: vital signs, nurses notes, lab test result(s), EKG, radiologic studies, CT scan, plain films. Data interpreted: cafeteria monitor: rate is 133 beats/min, rhythm is regular, Pulse oximetry: on room air is 96 %. Test interpretation: by ED physician or midlevel provider: ECG, plain radiologic studies. Counseling: I had a detailed discussion with the patient and/or guardian regarding: the historical points, exam findings, and any diagnostic results supporting the discharge/admit diagnosis, lab results, radiology results, the need for further work-up and treatment in the hospital. 08/13 12:54 Order name: Basic Metabolic Panel; Complete Time: 13:58 [facility] 08/13 12:54 Order name: CBC with Diff; Complete Time: 13:41 [facility] 08/13 12:54 Order name: LFT's; Complete Time: 13:58 [facility] 08/13 12:54 Order name: Magnesium; Complete Time: 13:58 [facility] 08/13 12:54 Order name: NT PRO-BNP; Complete Time: 13:58 [facility] 08/13 12:54 Order name: PT-INR; Complete Time: 13:41 [facility] 08/13 12:54 Order name: Troponin HS; Complete Time: 13:58 [facility] 08/13 12:54 Order name: Lipase; Complete Time: 13:58 [facility] 08/13 12:54 Order name: SARS-COV-2 RT PCR (Document "Date of Onset" if Symptomatic); Complete Time: [facility] 13:58 08/13 12:54 Order name: Blood Culture Adult (2) [facility] 08/13 12:54 Order name: Lactate; Complete Time: 13:41 [facility] 08/13 13:24 Order name: TSH; Complete Time: 14:08 08/13 15:20 Order name: Urine Dipstick-Ancillary; Complete Time: 18:53 [facility] 08/13 16:33 Order name: Lactate Sepsis 2 HR Follow-up; Complete Time: 18:53 [facility] 08/13 12:54 Order name: XRAY Chest (1 view); Complete Time: 18:53 [facility] 08/13 12:54 Order name: CT Head Brain wo Cont [facility] 08/13 12:54 Order name: CT Abd/Pelvis - PO Contrast Only; Complete Time: 18:53 [facility] 08/13 12:58 Order name: Head Brain Wo Cont; Complete Time: 18:53 [facility] 08/13 12:54 Order name: EKG; Complete Time: 12:55 [facility] 08/13 12:54 Order name: Cardiac monitoring; Complete Time: 13:24 [facility] 08/13 12:54 Order name: EKG - Nurse/Tech; Complete Time: 13:24 [facility] 08/13 12:54 Order name: IV Saline Lock; Complete Time: 13:24 [facility] 08/13 12:54 Order name: Labs collected and sent; Complete Time: 13:24 [facility] 08/13 12:54 Order name: O2 Per Protocol; Complete Time: 13:24 [facility] 08/13 12:54 Order name: O2 Sat Monitoring; Complete Time: 13:24 [facility] 08/13 13:59 Order name: EKG; Complete Time: 14:00 [facility] 08/13 13:59 Order name: EKG - Nurse/Tech; Complete Time: 14:12 [facility] EC:14 Rate is 133 beats/min. Rhythm is regular. QRS [place] is Normal. ME interval is normal. [facility] QRS interval is normal. QT interval is normal. No Q waves. T waves are Normal. No ST changes noted. Clinical impression: Sinus tachycardia and No evidence of ischemia. Interpreted by me. Reviewed by me. 14:20 Rate is 116 beats/min. Rhythm is regular. QRS [place] is Normal. ME interval is normal. [facility] QRS interval is normal. QT interval is normal. No Q waves. T waves are Normal. No ST changes noted. Clinical impression: Sinus tachycardia and No evidence of ischemia. Interpreted by me. Reviewed by me. Administered Medications: 13:13 Drug: Zofran (Ondansetron) 4 mg Route: IVP; Site: right forearm; jl7 13:30 Follow up: Response: No adverse reaction; Nausea is decreased jl7 22:48 Follow up: Response: No adverse reaction kd3 13:15 Drug: NS 0.9% 500 ml Route: IV; Rate: bolus; Site: right forearm; jl7 14:00 Follow up: Response: No adverse reaction; IV Status: Completed infusion; IV Intake: jl7 500ml 22:49 Follow up: Response: No adverse reaction kd3 14:00 Drug: Dulcolax (bisacodyl) Suppository 10 mg Route: ME; jl7 14:00 Drug: NS 0.9% 1000 ml Route: IV; Rate: 125 ml/hr; Site: right forearm; jl7 14:48 Drug: Rocephin (cefTRIAXone) 1 grams Route: IV; Rate: per protocol; Site: right forearm;jl7 15:00 Follow up: Response: No adverse reaction; IV Status: Completed infusion jl7 22:48 Follow up: Response: No adverse reaction kd3 14:48 Drug: NS 0.9% 1000 ml Route: IV; Rate: 1 bolus; Site: right forearm; jl7 16:00 Follow up: Response: No adverse reaction; IV Status: Completed infusion; IV Intake: jl7 1000ml 22:48 Follow up: Response: No adverse reaction kd3 14:55 Drug: Decadron - Dexamethasone 6 mg Route: IVP; Site: right forearm; jl7 18:53 Follow up: Response: No adverse reaction jl7 22:47 Follow up: Response: No adverse reaction kd3 22:48 Follow up: Response: No adverse reaction kd3 15:00 Drug: Magnesium Sulfate 2 grams Route: IVPB; Infused Over: 2 hrs; Site: right forearm; jl7 17:00 Follow up: Response: No adverse reaction; IV Status: Completed infusion jl7 22:48 Follow up: Response: No adverse reaction kd3 15:10 Drug: morphine 2 mg Route: IVP; Site: right forearm; jl7 15:30 Follow up: Response: No adverse reaction; Pain is decreased jl7 22:47 Follow up: Response: No adverse reaction kd3 15:10 Drug: Zofran (Ondansetron) 4 mg Route: IVP; Site: right forearm; jl7 15:30 Follow up: Response: No adverse reaction; Nausea is decreased jl7 22:47 Follow up: Response: No adverse reaction kd3 18:55 Not Given (Patient Refused): Lactulose 30 grams 45 ml PO once jl7 Disposition Summary: 08/13/21 14:28 Hospitalization Ordered Hospitalization Status: Observation chioma Provider: Edward Izaguirre cha Location: Telemetry/MedSurg (observation) chioma Condition: Fair chioma Problem: new chioma Symptoms: have improved chioma Bed/Room Type: Standard chioma Room Assignment: 231(08/13/21 20:39) mw Diagnosis - Altered mental status, unspecified chioma - Vomiting chioma - Weakness chioma - Hypomagnesemia chioma - Dehydration chioma - Tachycardia, unspecified chioma Forms: - Medication Reconciliation Form chioma - SBAR form chioma Signatures: Dispatcher [employer] EDMS Ledy Dobbins RN RN Dave Sierra MD MD cha Williams, Irene, RN RN iw Alejandra Blankenship RN RN jl7 Rosamaria Figueroa RN kd3 Corrections: (The following items were deleted from the chart) 14:53 14:34 MR STROKE PROTOCOL+MRI.RAD.BRZ ordered. EDMS EDMS 20:39 14:28 chioma mw
--- NOTE | 2021-08-13 14:41 | RAD REPORT ---
EXAM DESCRIPTION: CT - Head Brain Wo Cont - 08/13/2021 2:22 pm CLINICAL HISTORY: Alteration of awareness/confusion/ breast cancer COMPARISON: August 06, 2021 TECHNIQUE: Computed axial tomography of the head was obtained. IV contrast was not requested. All CT scans are performed using dose optimization technique as appropriate and may include automated exposure control or mA/KV adjustment according to patient size. FINDINGS: An intracranial bleed is not seen . The ventricles are normal in caliber. No significant hypodense areas within the brain No extra-axial fluid collection is noted. Fluid within the sinuses/ mastoids is not seen. IMPRESSION: No acute intracranial abnormality is seen. If patient's symptoms persist MRI of the bra in would be recommended.
--- NOTE | 2021-08-13 14:43 | RAD REPORT ---
EXAM DESCRIPTION: RAD - Chest Single View - 08/13/2021 1:25 pm CLINICAL HISTORY: COUGH, known pulmonary masses COMPARISON: CT chest 04/30/2021 TECHNIQUE: AP portable chest image was obtained 08/13/2021 1:25 pm . FINDINGS: Lung volumes are low. A focal bacterial type consolidation of the lung parenchyma is not s een. Interstitial pattern is accentuated by the low lung volumes. Heart size is normal. Multiple variably sized masses are scattered in the lung parenchyma. Assessment of interval change si nce the April imaging be accurately performed due to the differences in the 2 modalities. Heart and vasculature are normal. No measurable pleural effusion and no pneumothorax. No acute bony abnormality seen. No acute aortic findings suspected. IMPRESSION: No acute infiltrates seen. Multiple pulmonary masses throughout the lung parenchyma. These masses are unknown finding. No accura te assessment of progression or improvement can be made with the April imaging due to the significa nt difference between the 2 imaging modalities. Interstitial markings are prominent believed to be the affects of shallow inspiration. Minimal inters titial edema or infiltrate not entirely excluded.
--- NOTE | 2021-08-13 14:49 | RAD REPORT ---
EXAM DESCRIPTION: CT - Abdomen Pelvis W Contrast - 08/13/2021 2:25 pm CLINICAL HISTORY: Abdominal pain COMPARISON: April 2021 TECHNIQUE: Computed axial tomography of the abdomen pelvis was obtained. 100 cc Isovue-300 was admin istered intravenously. Oral contrast was not requested which limits evaluation of bowel. All CT scans are performed using dose optimization technique as appropriate and may include automated exposure control or mA/KV adjustment according to patient size. FINDINGS: Bilateral pulmonary nodules have increased in size. Worsening in hilar mediastinal lymphadenopathy. Fatty liver Spleen, pancreas, adrenal and kidneys appear unremarkable. There is no evidence of diverticulitis. Normal appendix. Stable sclerosis right ilium IMPRESSION: Increase in the size of bilateral pulmonary nodules and progression in mediastinal and h ilar lymphadenopathy compatible with worsening neoplasm No acute abnormality involving the abdomen/pelvis
[2021-08-13] MEDS ORDERED: HYDROCODONE/APAP 5/325 MG TAB ONE (14:55)
[2021-08-13] MEDS ORDERED: MORPHINE 2 MG/ML SYR ONE ×2 (15:03→20:49)
[2021-08-13] MEDS ORDERED: dexAMETHasone 10 MG/ML VIAL ONE (15:04)
[2021-08-13 15:20] LABS: Urine Blood Negative (Negative); Urine Glucose Negative (Negative); Urine Protein 2+ (Negative); Urine Specific Gravity 1.015 (1.005-1.030)
--- NOTE | 2021-08-13 16:09 | P.HP ---
Certification for Inpatient Patient admitted to: Inpatient With expected LOS: >2 Midnights Practitioner: I am a practitioner with admitting privileges, knowledge of patient current condition, hospital course, and medical plan of care. Services: Services provided to patient in accordance with Admission requirements found in Title 42 Section 412.3 of the Code of Federal Regulations Patient History Date of Service: 08/13/21 Reason for admission: Nausea and vomiting, confusion History of Present Illness: 61-year-old with a history of metastatic breast cancer status post chemotherapy, mets to the brain, currently undergoing radiation, first radiation was yesterday presented to the emergency department due to nausea and vomiting. Patient reports waking up with generalized weakness. She is also complaining of worsening slurred speech. Stated she has had difficulty swallowing for a couple of days now and feeling heaviness in the legs. She also reports 5 days of constipation and stated she cannot strain. Head CT in the ED shows no acute disease. CT abdomen and pelvis shows progression of metastatic disease- bilateral pulmonary nodules increased in size. Blood work unremarkable except elevated BUN, lactic acidosis and hyperglycemia. Patient is hospitalized for further management. Allergies No Known Allergies Allergy (Verified 04/08/21 07:42) Home Medications: Metformin HCl [Metformin ER Osmotic] 1,000 mg PO BID 01/16/20 Amlodipine Besylate 10 mg PO DAILY 03/15/21 Aspirin [Aspirin EC 81 MG] 81 mg PO DAILY 03/15/21 Bimatoprost [Lumigan Opthalmic Drops] 2.5 ml OP DAILY 03/15/21 Gabapentin 300 mg PO BID 03/15/21 Losartan Potassium [Cozaar*] 50 mg PO BEDTIME 03/15/21 Mv-Min/Iron/Folic/Calcium/Vitk [Women's Daily Formula Tablet] 1 each PO DAILY 03/15/21 Amoxicillin [Amoxil] 875 mg PO BID 04/08/21 Hydrocodone Bit/Acetaminophen [Hydrocodon-Acetaminophen 5-325] 1 each PO Q8HP PRN 04/08/21 Lactobacillus Acidophilus [Probiotic] 1 each PO BID 04/08/21 - Past Medical/Surgical History Diabetic: Yes -: Hypertension -: Diabetes mellitus type 2 [id number] -: COPD -: Breast cancer -: Obesity, BMI 39 -: Former tobacco use -: History of TIA -: Right Port-A-Cath -: Hysterectomy Psychosocial/ Personal History: Patient is - Family History Sister -: Diabetes, Stroke Father -: Cancer - Social History Alcohol use: No CD- Drugs: No Caffeine use: Yes Review of Systems Other: She denies any fever, denies abdominal pain. Except as documented, all other systems reviewed and negative. Physical Examination - Physical Exam General: Alert, In no apparent distress, Oriented x3 HEENT: Mucous membr. moist/pink Neck: Supple, JVD not distended Respiratory: Clear to auscultation bilaterally, Normal air movement Cardiovascular: No edema, Regular rate/rhythm, Normal S1 S2, No murmurs Capillary refill: <2 Seconds Gastrointestinal: Normal bowel sounds, Soft and benign, Non-distended, No tenderness Musculoskeletal: No swelling, No tenderness Integumentary: No rashes, No cyanosis Neurological: Other (Moves all extremities, slurred speech, left facial droop) Lymphatics: No axilla or inguinal lymphadenopathy - Studies Laboratory Data (last 24 hrs) 08/13/21 13:00: PT 12.4, INR 1.12 08/13/21 13:00: WBC 11.0 H, Hgb 14.0, Hct 41.7, Plt Count 506 H 08/13/21 13:00: Sodium 138, Potassium 3.7, BUN 20 H, Creatinine 1.03, Glucose 204 H, Magnesium 1.5 L, Total Bilirubin 0.3, AST 18, ALT 30, Alkaline Phosphatase 98, Lipase 64 L Assessment and Plan - Problems (Diagnosis) (1) Dehydration Current Visit: Yes Status: Acute (2) Intractable nausea and vomiting Current Visit: Yes Status: Acute (3) Breast cancer metastasized to brain Current Visit: Yes Status: Acute (4) History of diabetes mellitus, type II Current Visit: No Status: Chronic (5) History of stroke Current Visit: No Status: Chronic (6) Slow transit constipation Current Visit: Yes Status: Acute - Plan Patient with progressive metastatic disease. Neurologic symptoms-dysarthria. Slow transit constipation. Admit to the medical floor Supportive measures-IV hydration. Treat constipation with Dulcolax. Swallow evaluation. Oral Laxatives oral if patient passes swallow evaluation otherwise we will start an NG tube for laxatives. IV dexamethasone given subjective worsening neurologic symptoms. Consulted neurology. Reconcile and continue other home medications once patient passes swallow test. - Advance Directives Does patient have a Living Will: No Does patient have a Durable POA for Healthcare: No
[2021-08-13] MEDS ORDERED: BISACODYL 10 MG RECTAL SUPP PR ONE (20:30)
[2021-08-13] MEDS: D5 0.9 NS 1,000 ML IV SCH ×2 (20:30→23:47)
[2021-08-13] MEDS ORDERED: ACETAMINOPHEN 650MG/RECT SUPP PR PRN (20:30)
[2021-08-13] MEDS: MORPHINE 2 MG/ML SYR IV PRN (20:46)
[2021-08-13] MEDS ORDERED: BISACODYL E.C. 5 MG TAB PO ONE (20:48)
[2021-08-13] MEDS ORDERED: D5W 1,000 ML IV ONE (20:49)
[2021-08-13] MEDS: dexAMETHasone 10 MG/ML VIAL IV SCH (23:44)
[2021-08-14] MEDS: MORPHINE 2 MG/ML SYR IV PRN ×2 (02:24→21:21)
[2021-08-14 03:27] LABS: Absolute Lymphocytes (CBC) 0.7 K/uL (0.7-4.9); Hematocrit 37.9 % (36.0-45.0); Lymphocytes % 10.2 % (15.3-44.8); RBC Red Blood Cell Count 4.48 M/uL (3.86-4.86)
[2021-08-14 04:10] LABS: ALT/SGPT 30 U/L (12-78); AST/SGOT 18 U/L (15-37); Albumin 3.5 g/dL (3.4-5.0); Alkaline Phosphatase 88 U/L (45-117); BUN Blood Urea Nitrogen 13 mg/dL (7-18); Bicarbonate 24 mmol/L (21-32); Bilirubin Total 0.3 mg/dL (0.2-1.0); Glucose Level 221 mg/dL (74-106); Magnesium 1.6 mg/dL (1.8-2.4); Phosphorus 2.8 mg/dL (2.5-4.9); Potassium 3.7 mmol/L (3.5-5.1); Protein, Total 7.8 g/dL (6.4-8.2); Sodium Level 136 mmol/L (136-145)
[2021-08-14] MEDS ORDERED: MAGNESIUM SULFATE 1 gm IVPB 1 GM/100 ML BAG IV ONE (06:00)
[2021-08-14] MEDS: D5 0.9 NS 1,000 ML IV SCH ×3 (06:30→21:22)
[2021-08-14] MEDS ORDERED: KCL 20 MEQ/100 mL IVPB 20 MEQ/100 ML BAG IV SCH (07:30)
[2021-08-14] MEDS: ENOXAPARIN 40 MG/0.4 ML SQ SCH (09:00)
[2021-08-14] MEDS: dexAMETHasone 10 MG/ML VIAL IV SCH ×2 (09:00→21:21)
[2021-08-14] MEDS ORDERED: GLUCAGON 1 MG/VIAL IM PRN (12:53)
[2021-08-14] MEDS ORDERED: MAGNESIUM CITRATE 300 ML BOT PO SCH (13:00)
--- NOTE | 2021-08-14 13:03 | P.PN ---
Subjective Date of Service: 08/14/21 Chief Complaint: Nausea and vomiting, confusion Patient is doing much better today. She denies any nausea or vomiting today. She states that she had a bowel movement last night. She denies any abdominal pain. She states that she feels stronger today. She passed bedside swallow test. Physical Examination - Vital Signs Temperature: 97.1 F Blood Pressure: 179/89 Pulse: 103 Respirations: 20 Pulse Ox (%): 99 - Studies Laboratory Data (last 24 hrs) 08/13/21 13:00: PT 12.4, INR 1.12 08/13/21 13:00: WBC 11.0 H, Hgb 14.0, Hct 41.7, Plt Count 506 H 08/13/21 13:00: Sodium 138, Potassium 3.7, BUN 20 H, Creatinine 1.03, Glucose 204 H, Magnesium 1.5 L, Total Bilirubin 0.3, AST 18, ALT 30, Alkaline Phosphatase 98, Lipase 64 L Assessment And Plan - Current Problems (Diagnosis) (1) Dehydration Current Visit: Yes Status: Acute (2) Intractable nausea and vomiting Current Visit: Yes Status: Acute (3) Breast cancer metastasized to brain Current Visit: Yes Status: Acute (4) History of diabetes mellitus, type II Current Visit: No Status: Chronic (5) History of stroke Current Visit: No Status: Chronic (6) Slow transit constipation Current Visit: Yes Status: Acute - Plan Physical Exam General: Alert, In no apparent distress, Oriented x3 HEENT: Mucous membr. moist/pink Neck: Supple, JVD not distended Respiratory: Clear to auscultation bilaterally, Normal air movement Cardiovascular: No edema, Regular rate/rhythm, Normal S1 S2, No murmurs Capillary refill: <2 Seconds Gastrointestinal: Normal bowel sounds, Soft and benign, Non-distended, No tenderness Musculoskeletal: No swelling, No tenderness Integumentary: No rashes, No cyanosis Neurological: slurred speech, left facial droop, no limb weakness. Plan Awaiting neurology input. Patient had a bowel movement with Dulcolax suppository. She has high stool burden by CT abdomen. We will give mag citrate today and start senna and MiraLAX tomorrow. Continue IV fluid Patient passed bedside swallow test. Diet resumed. Insulin sliding scale for glucose management. Hold metformin. Continue IV dexamethasone given subjective worsening neurologic symptoms. She ambulated with PT today.
[2021-08-14] MEDS ORDERED: D10W 250 ML BAG IV PRN (13:22)
[2021-08-14] MEDS: ONDANSETRON 4 MG/2 ML VIAL IV PRN (14:19)
[2021-08-14] MEDS: AMLODIPINE 10 MG TAB PO SCH (14:19)
[2021-08-14] MEDS: INSULIN -REGULAR HUMAN 50 UNIT/0.5 ML ML SQ SCH ×2 (16:41→21:00)
[2021-08-14] MEDS: LOSARTAN POTASSIUM 50 MG TABLET PO SCH (21:21)
[2021-08-15 02:15] VITALS: BMI 34.4
[2021-08-15] MEDS: D5 0.9 NS 1,000 ML IV SCH (02:30)
[2021-08-15] MEDS: MORPHINE 2 MG/ML SYR IV PRN ×4 (03:18→23:50)
[2021-08-15 03:49] LABS: Magnesium 2.1 mg/dL (1.8-2.4); Potassium 4.2 mmol/L (3.5-5.1)
[2021-08-15] MEDS: INSULIN -REGULAR HUMAN 50 UNIT/0.5 ML ML SQ SCH ×4 (05:19→20:38)
[2021-08-15] MEDS: ASPIRIN EC 81 MG TAB PO SCH (08:37)
[2021-08-15] MEDS: dexAMETHasone 10 MG/ML VIAL IV SCH ×2 (08:37→20:38)
[2021-08-15] MEDS: ENOXAPARIN 40 MG/0.4 ML SQ SCH (08:38)
[2021-08-15] MEDS: AMLODIPINE 10 MG TAB PO SCH (08:38)
[2021-08-15] MEDS: MULTIVITAMIN TAB PO SCH (08:38)
[2021-08-15] MEDS ORDERED: MULTIVITAMIN PO SCH (09:00)
--- NOTE | 2021-08-15 13:39 | P.PN ---
Subjective Date of Service: 08/15/21 Chief Complaint: Nausea and vomiting, confusion Patient is complaining of headache. She denies any abdominal pain. She is eating well. Blood sugar readings are elevated. Physical Examination - Vital Signs Temperature: 97.2 F Blood Pressure: 153/71 Pulse: 92 Respirations: 16 Pulse Ox (%): 96 Assessment And Plan - Current Problems (Diagnosis) (1) Dehydration Current Visit: Yes Status: Acute (2) Intractable nausea and vomiting Current Visit: Yes Status: Acute (3) Breast cancer metastasized to brain Current Visit: Yes Status: Acute (4) History of diabetes mellitus, type II Current Visit: No Status: Chronic (5) History of stroke Current Visit: No Status: Chronic (6) Slow transit constipation Current Visit: Yes Status: Acute - Plan Physical Exam General: Alert, In no apparent distress, Oriented x3 HEENT: Mucous membr. moist/pink Neck: Supple, JVD not distended Respiratory: Clear to auscultation bilaterally, Normal air movement Cardiovascular: No edema, Regular rate/rhythm, Normal S1 S2, No murmurs Gastrointestinal: Normal bowel sounds, Soft and benign, Non-distended, No tenderness Musculoskeletal: No swelling, No tenderness Integumentary: No rashes, No cyanosis Neurological: slurred speech, left facial droop, no limb weakness. Plan Dr. Mcelroy to see patient Discontinue D5 infusion as patient is eating well. She has high stool burden by CT abdomen. We will give mag citrate today and start senna and MiraLAX tomorrow. Continue IV fluid Patient passed bedside swallow test. Diet resumed. Insulin sliding scale for glucose management. Continue to hold metformin. Continue IV steroid. Patient may be experiencing steroid-induced hyperglycemia. We will add low-dose Lantus insulin Continue PT. Possible discharge tomorrow to continue radiation therapy as outpatient.
[2021-08-15] MEDS: POLYETHYL GLY 3350 17 GM/DOSE PO PRN (14:11)
[2021-08-15] MEDS: INSULIN GLARGINE 100 UNIT/ML SQ SCH (14:11)
[2021-08-15] MEDS: ONDANSETRON 4 MG/2 ML VIAL IV PRN (18:51)
[2021-08-15] MEDS ORDERED: MINERAL OIL 30 ML UCUP PO ONE (19:00)
[2021-08-15] MEDS: LOSARTAN POTASSIUM 50 MG TABLET PO SCH (20:37)
[2021-08-15] MEDS: SENOSIDES 8.6 MG TAB PO SCH (20:38)
[2021-08-16] MEDS: MORPHINE 2 MG/ML SYR IV PRN ×2 (03:46→07:53)
[2021-08-16 04:12] LABS: Hematocrit 40.4 % (36.0-45.0); Lymphocytes % 9.3 % (15.3-44.8); MPV 7.1 fL (7.6-11.3)
[2021-08-16 04:33] LABS: Potassium 4.4 mmol/L (3.5-5.1)
[2021-08-16 04:39] LABS: Blood Morphology Comment NOT SEEN (NOT SEEN); Platelet Estimate ADEQ
[2021-08-16] MEDS: INSULIN GLARGINE 100 UNIT/ML SQ SCH (07:54)
[2021-08-16] MEDS: INSULIN -REGULAR HUMAN 50 UNIT/0.5 ML ML SQ SCH ×4 (07:54→21:25)
[2021-08-16] MEDS: ONDANSETRON 4 MG/2 ML VIAL IV PRN (07:54)
[2021-08-16] MEDS: ENOXAPARIN 40 MG/0.4 ML SQ SCH (07:55)
[2021-08-16] MEDS: ASPIRIN EC 81 MG TAB PO SCH (07:55)
[2021-08-16] MEDS: AMLODIPINE 10 MG TAB PO SCH (07:55)
[2021-08-16] MEDS: dexAMETHasone 10 MG/ML VIAL IV SCH ×2 (07:55→20:33)
[2021-08-16] MEDS: MULTIVITAMIN TAB PO SCH (07:55)
[2021-08-16] MEDS: SENOSIDES 8.6 MG TAB PO SCH ×2 (07:56→20:33)
[2021-08-16] MEDS: POLYETHYL GLY 3350 17 GM/DOSE PO PRN (08:04)
--- NOTE | 2021-08-16 13:32 | RAD REPORT ---
EXAM DESCRIPTION: RAD - Barium Swallow Modified - 08/16/2021 1:04 pm CLINICAL HISTORY: Nurse requested, difficulty swallowing COMPARISON: None. TECHNIQUE: The patient was given liquid, semi-solid and solid forms of barium. Lateral view fluorosc opic imaging was performed in conjunction with speech pathology service. FINDINGS: Cineloop acquisitions: Approximately 15 cine loop acquisitions were obtained. Recording sy stem malfunction during the examination precluding retention of the sequences. Fluoro time: 2.10 MIN laryngeal pentration not cleared with thin with whole barium tablet aspiration : cough with thin with whole barium tablet pharyngeal residue: vallecular with mild thin IMPRESSION: Modified barium swallow as summarized above and fully detailed on speech pathology repor angelina
--- NOTE | 2021-08-16 15:04 | RAD REPORT ---
EXAM DESCRIPTION: MRI - Brain W/Wo Cont - 08/16/2021 2:40 pm CLINICAL HISTORY: R/O Stroke COMPARISON: Brain W/Wo Cont dated 02/15/2021; Brain Wo Cont dated 07/29/2019 TECHNIQUE: Sagittal T1-weighted images were obtained along with PD/heavily T2-weighted and T2-FLAIR images. Axial DWI and ADC mapping sequences were also obtained along with coronal heavily T2-weighted images were obtained. Post contrast enhanced images were obtained. FINDINGS: Multiple new enhancing lesions, the majority are infratentorial. There is a lesion in the cook radiata on the left side, medial right temporal lobe, and at least 7 lesions in the cerebellum . None measure over 5 millimeters. No extra-axial fluid collections. Signal voids are seen as a corina l finding in the major intracranial vessels. Mild nonspecific T2/FLAIR hyperintense foci within the c entrum semiovale and cook radiata favored to represent chronic small vessel ischemic changes. No mastoid effusion.Paranasal sinuses are clear. IMPRESSION: At least 9 new small enhancing intracranial lesions, the majority of which are infratent orial. These are concerning for metastatic disease. No mass effect or midline shift. No evidence of a cute infarct.
[2021-08-16] MEDS ORDERED: HYDRALAZINE HCL 20 MG/ML VIAL IV PRN (16:43)
--- NOTE | 2021-08-16 20:00 | P.PN ---
Subjective Date of Service: 08/16/21 Chief Complaint: Nausea and vomiting, confusion Patient still complaining of headache and concern about her inability to swallow. She ambulated 62 feet with physical therapy today. Physical Examination - Vital Signs Temperature: 97.9 F Blood Pressure: 181/78 Pulse: 96 Respirations: 18 Pulse Ox (%): 97 Assessment And Plan - Current Problems (Diagnosis) (1) Dehydration Current Visit: Yes Status: Acute (2) Intractable nausea and vomiting Current Visit: Yes Status: Acute (3) Breast cancer metastasized to brain Current Visit: Yes Status: Acute (4) History of diabetes mellitus, type II Current Visit: No Status: Chronic (5) History of stroke Current Visit: No Status: Chronic (6) Slow transit constipation Current Visit: Yes Status: Acute - Plan Physical Exam General: Alert, In no apparent distress, Oriented x3 HEENT: Mucous membr. moist/pink Neck: Supple, JVD not distended Respiratory: Clear to auscultation bilaterally, Normal air movement Cardiovascular: No edema, Regular rate/rhythm, Normal S1 S2, No murmurs Gastrointestinal: Normal bowel sounds, Soft and benign, Non-distended, No tenderness Musculoskeletal: No swelling, No tenderness Integumentary: No rashes, No cyanosis Neurological: slurred speech, left facial droop, no limb weakness. Plan Dr. Mcelroy input appreciated. MRI of the brain reports new metastatic lesions in the brain. Continue IV dexamethasone Dr. Mcelryo to follow Patient passed bedside swallow test. Patient seen by speech, MBS done. Speech therapy recommended regular, thin liquids. Insulin sliding scale for glucose management. Continue to hold metformin. Continue IV steroid. Patient may be experiencing steroid-induced hyperglycemia. Continue Lantus insulin and titrate Continue PT. Disposition: Skilled rehab versus outpatient therapy. Consults oncology regarding radiation therapy and new brain metastasis.
[2021-08-16] MEDS: LOSARTAN POTASSIUM 50 MG TABLET PO SCH (20:34)
[2021-08-16] MEDS: GLUCERNA SHAKE 237 ML CAN PO SCH (20:35)
[2021-08-16] MEDS ORDERED: GLUCERNA SHAKE 237 ML CAN PO SCH (21:00)
[2021-08-17] MEDS: MORPHINE 2 MG/ML SYR IV PRN ×4 (00:10→21:45)
[2021-08-17] MEDS: ONDANSETRON 4 MG/2 ML VIAL IV PRN (00:11)
--- NOTE | 2021-08-17 02:27 | CON ---
Reason For Consultation: Consultation called because of nausea, vomiting, possible stroke. History Of Present Illness: Ms. Patel is a 61-year-old right-handed patient with metastatic cancer to the brain, who comes to [facility] with worsening nausea, vomiting, and apparent Jackson's palsy. She was seen about a week ago at an outside hospital where head CT scan showed no acute lesions. However, CT scan of the abdomen and pelvis showed progression of metastatic disease with bilateral pulmonary nodules increasing in size. She clinically had worsening difficulty with speech, generalized fatigue, nausea, vomiting, and difficulty moving her face and her right eye. She had a longstanding prosthetic left eye. At [facility], her initial head CT scan showed no acute ischemic or hemorrhagic change and that study was done on the . However, her brain MRI done earlier today on the identified multiple areas of new enhancing lesions, the majority noted to be in the infratentorial region, lesions involving the cook radiata on the left and medial right temporal lobe, and at least 7 lesions in the cerebellum. They are less than 5 mm in size. In addition, there were mild nonspecific hyperintense foci in the centrum semiovale and cook radiata, representing chronic small vessel ischemic disease. The findings of this study are consistent with metastatic disease to the brain. She did receive 1 course of radiation for presumed brain metastatic disease and the symptoms as noted above worsened. Past Medical History: Diabetes mellitus, hypertension, metastatic breast cancer, chronic obstructive pulmonary disease, class 2 obesity, history of transient ischemic attack. Past Surgical History: Right Port-A-Cath, hysterectomy. Allergies: NO KNOWN DRUG ALLERGIES. Medications: Metformin 1000 mg twice daily, amlodipine 10 mg daily, aspirin 81 mg daily, Lumigan ophthalmic daily, gabapentin 300 mg twice daily, losartan 50 mg at bedtime, amoxicillin 875 mg twice daily, [place] 5/325 one tablet every 8 hours as needed, probiotic 1 twice daily. Family History: Positive for diabetes and stroke in sister, cancer in father. Social History: No alcohol, tobacco, or IV drug use. Review of Systems: As mentioned with nausea, vomiting, facial weakness, generalized fatigue. Otherwise, no abdominal pain or diarrhea. No genitourinary issues. No dermatological issues. Physical Examination: Vital Signs: Blood pressure 181/78, pulse 96, respiratory rate 16 to 18, temperature 97.9, oxygen saturation 97%. Weight 207 pounds, height 5 feet 5 inches, BMI 34.4. General: Ms. Patel is sitting in chair beside the bed. Her is in the room. She is in slight distress due to her symptoms. HEENT: She is otherwise normocephalic and atraumatic. She does have some proptosis. There is a left prosthetic eye. Lungs: Otherwise, she is clear to auscultation. Abdomen: Soft. Extremities: Show no significant edema or cyanosis. Neurologic: Alert and oriented to situation, place, and person. She follows commands appropriately. She has no expressive or receptive aphasias. She has poor labial, lingual, and guttural sounds. She has weakness of the facial muscles bilaterally. She does not have any wrinkling noticed when trying to look upwards. Her left nasolabial fold is more prominent than the right. The right has droopy and she has less excursion of the right nasolabial fold when smiling. Her tongue is midline. Her motor examination in the upper and lower extremities shows no significant weakness [id number] and sensory exam shows no decreased sensation in the upper and lower extremities. Coordination, she has dysmetria noted in upper and lower extremities. Gait, she has wide-based and more ataxic gait. Laboratory Studies: Complete blood count with differential is unremarkable except platelets 487, neutrophils 88, but white blood cell count normal at 10.4. INR 1.12. Chemistries; sodium 135, potassium 4.4, chloride 104, glucose range 198 to 247, magnesium 2.1, calcium 9.2. AST, ALT, and alkaline phosphatase normal. Urinalysis; 2+ protein, otherwise unremarkable. COVID-19 test is negative. Assessment: Ms. Patel is a 61-year-old patient with evidence of mildly increased intracranial pressure on history and neurological evaluation. She has false localizing signs in terms of cranial nerve palsies, which include both cranial nerve 7 bilaterally, cranial nerve 6 bilaterally, and cranial nerve 3 as she is unable to adduct and abduct the right eye. The left eye is a prosthesis. She has intact facial sensation. She did pass a barium swallow study. Plan: The patient may require longer-term steroid treatment, which she is on 6 mg of Decadron every 12 hours, DVT prophylaxis with Lovenox, aspirin to help reduce stroke risk along with controlling blood pressure, Norvasc, apresoline as appropriate, insulin sliding scale appropriate. She is at significant risk of worsening given multiple areas of metastatic brain disease. She has the potential for increased intracranial pressure to the point of possible herniation. Currently, there is no impending herniation. She may be best treated palliatively with aggressive radiation as appropriate. She has a poor prognosis for good recovery. Consider hospice at this stage. However, the oncologist and the patient will make that determination and proceed accordingly. Consider antiepileptic medication such as Keppra 500 mg twice daily given the possibility of seizures complicating her course. ARIADNA/CICI Voice ID: [id number] Report ID: [id number] MTDD
[2021-08-17 04:12] LABS: Hematocrit 41.8 % (36.0-45.0); Lymphocytes % 9.6 % (15.3-44.8); MPV 6.9 fL (7.6-11.3)
--- NOTE | 2021-08-17 06:29 | P.PN ---
Date of Service: 08/17/21 Subjective: no significant change reports brief episode with gagging with pill and water no worsening symptoms feels very weak, wants to be stronger to tolerate radiation ROS: 10 point ROS as noted above, otherwise negative Physical exam GEN: Alert, oriented, NAD HEENT: Normal conjunctiva, sclera anicteric on R eye, left prosthetic eye CV: Regular rate and rhythm, no edema Pulm: Non-labored respirations on room air ABD: Soft, nontender, nondistended Neuro: weakness of bilateral facial muscles, slight slurred speech, left nasolabial fold more prominent vs right. slight right facial droop. str 5/5 in upper/lower extremities while tested in bed. 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, esophageal dysphagia, secondary to brain metastasis Diabetes mellitus type 2 History of CVA Slow transit constipation MRI with 9 metastatic lesions in the brain, reportedly had an MRI at [facility] recently that showed brain lesions, unclear how many Was some edema noted, neurology consulted, recommends IV dexamethasone to continue. Patient's symptoms have worsened in the last few weeks Patient with difficulty swallowing pills, speech therapy consulted, MBS done yesterday, diet recommended and ordered Hyperglycemia secondary to steroids, insulin sliding scale, titrate Lantus as n eeded Physical therapy consulted, patient improving, recommended outpatient rehab Oncology consulted yesterday to review brain MRI findings and assistance with prognosis/plan of care/treatment going forward Poor prognosis Code: Full Dispo: home with outpatient rehab, 1-2 days will discuss further with family, may need to consider hospice in near future Time Spent Managing Pts Care (In Minutes): 35
[2021-08-17] MEDS: dexAMETHasone 10 MG/ML VIAL IV SCH ×2 (09:37→21:52)
[2021-08-17] MEDS: SENOSIDES 8.6 MG TAB PO SCH ×2 (09:39→21:00)
[2021-08-17] MEDS: AMLODIPINE 10 MG TAB PO SCH (09:39)
[2021-08-17] MEDS: ENOXAPARIN 40 MG/0.4 ML SQ SCH (09:39)
[2021-08-17] MEDS: MULTIVITAMIN TAB PO SCH (09:39)
[2021-08-17] MEDS: ASPIRIN EC 81 MG TAB PO SCH (09:39)
[2021-08-17] MEDS: INSULIN GLARGINE 100 UNIT/ML SQ SCH (09:40)
[2021-08-17] MEDS: INSULIN -REGULAR HUMAN 50 UNIT/0.5 ML ML SQ SCH ×4 (09:41→21:46)
[2021-08-17] MEDS: GLUCERNA SHAKE 237 ML CAN PO SCH ×3 (09:43→21:00)
[2021-08-17] MEDS ORDERED: BISACODYL 10 MG RECTAL SUPP PR ONE (13:37)
[2021-08-17] MEDS: LOSARTAN POTASSIUM 50 MG TABLET PO SCH (21:00)
[2021-08-18] MEDS ORDERED: MORPHINE 2 MG/ML SYR IV ONE (00:08)
--- NOTE | 2021-08-18 00:11 | P.PN ---
Date of Service: 08/17/21 HEATHER FELIZ was called at 2128, when I arrived at bedside patient was sitting up in bed and coughing. Pt alert, attempting to clear airway. It was reported that patient was taking her evening PO meds and began to choke after taking the first pill. Patient was coached through the episode, had coughing episode productive of moderate amount of phlegm. Appears to be doing better now. made to be NPO for the time being, speech therapy consult placed to eval for poss. aspiration. VSS, 02 sats 98-99% on 2L per NC, no distress noted at this time. Will continue to monitor throughout the evening.
[2021-08-18 04:28] LABS: Albumin 3.5 g/dL (3.4-5.0); Bilirubin Total 0.2 mg/dL (0.2-1.0); Potassium 4.2 mmol/L (3.5-5.1); Protein, Total 7.5 g/dL (6.4-8.2)
[2021-08-18] MEDS: MORPHINE 2 MG/ML SYR IV PRN ×4 (05:10→20:34)
--- NOTE | 2021-08-18 06:53 | P.PN ---
Date of Service: 08/18/21 Subjective: last night had choking episode with pills feels better this morning, overall unchanged continues with slurred speech, difficulty swallowing, unsteadiness ROS: 10 point ROS as noted above, otherwise negative Physical exam GEN: Alert, oriented, NAD HEENT: Normal conjunctiva, sclera anicteric on R eye, left prosthetic eye CV: Regular rate and rhythm, no edema Pulm: Non-labored respirations on room air ABD: Soft, nontender, nondistended Neuro: weakness of bilateral facial muscles, slight slurred speech, left nasolabial fold more prominent vs right. slight right facial droop. str 5/5 in upper/lower extremities while tested in bed. 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, esophageal dysphagia, secondary to brain metastasis Diabetes mellitus type 2 History of CVA Slow transit constipation MRI with 9 metastatic lesions in the brain, reportedly had an MRI at [facility] recently that showed multiple brain lesionsl, unclear how many Neurology consulted, noted some edema associated with lesions, recommended IV dexamethasone Symptoms secondary to brain metastasis Patient with difficulty swallowing pills, speech therapy consulted to re- evaluate this morning, NPO for now Hyperglycemia secondary to steroids, insulin sliding scale, titrate Lantus as needed Physical therapy consulted, patient improved with ambulation slightly, recommended outpatient rehab Oncology consulted to review brain MRI findings and assistance with prognosis/plan of care/treatment going forward Poor prognosis long discussion with patient and at bedside, reviewing options of home and continue palliative radiation vs hospice they are unsure and will discuss further with family Code: Full Dispo: possible hospice vs home health / palliative radiation, ~24-48hrs Time Spent Managing Pts Care (In Minutes): 35
[2021-08-18] MEDS ORDERED: NA CHLORIDE 0.9% 1,000 ML IV SCH (07:00)
[2021-08-18] MEDS: INSULIN -REGULAR HUMAN 50 UNIT/0.5 ML ML SQ SCH ×4 (07:30→20:35)
[2021-08-18] MEDS: GLUCERNA SHAKE 237 ML CAN PO SCH ×3 (09:00→21:00)
[2021-08-18] MEDS: INSULIN GLARGINE 100 UNIT/ML SQ SCH ×2 (09:00→16:58)
--- NOTE | 2021-08-18 10:00 | RAD REPORT ---
EXAM DESCRIPTION: RAD - Chest Single View - 08/18/2021 9:39 am CLINICAL HISTORY: f/u for poss aspiration COMPARISON: Chest Single View dated 08/13/2021; Chest Single View dated 03/15/2021; Chest Pa And Lat (2 Views) dated 03/15/2021; Chest Pa And Lat (2 Views) dated 01/16/2020; Abdomen Pelvis W Contrast d ated 08/13/2021 FINDINGS: Lines: None. Lungs: Multiple bilateral pulmonary nodules. These or also seen on the radiograph from 08/13/2021. Mi ld increased opacities at the right lung base. Pleural: No significant pleural effusions or pneumothorax. Cardiac: The heart size is within normal limits. Bones: No acute fractures. Other: IMPRESSION: Mild increased right basilar opacities could reflect mild aspiration. Bilateral pulmonar y nodules. These are suspicious for metastatic disease.
[2021-08-18] MEDS: dexAMETHasone 10 MG/ML VIAL IV SCH ×2 (10:40→20:33)
[2021-08-18] MEDS: ENOXAPARIN 40 MG/0.4 ML SQ SCH (10:40)
[2021-08-18] MEDS: MULTIVITAMIN TAB PO SCH (12:55)
[2021-08-18] MEDS: SENOSIDES 8.6 MG TAB PO SCH ×2 (12:55→20:33)
[2021-08-18] MEDS: ASPIRIN EC 81 MG TAB PO SCH (12:55)
[2021-08-18] MEDS: AMLODIPINE 10 MG TAB PO SCH (12:55)
[2021-08-18] MEDS: LOSARTAN POTASSIUM 50 MG TABLET PO SCH (20:33)
[2021-08-19] MEDS: MORPHINE 2 MG/ML SYR IV PRN ×5 (00:04→23:59)
[2021-08-19 04:17] LABS: RBC Red Blood Cell Count 5.17 M/uL (3.86-4.86)
[2021-08-19 04:39] LABS: Albumin 3.6 g/dL (3.4-5.0); Bilirubin Total 0.3 mg/dL (0.2-1.0); Potassium 4.1 mmol/L (3.5-5.1); Protein, Total 7.7 g/dL (6.4-8.2)
[2021-08-19] MEDS: ONDANSETRON 4 MG/2 ML VIAL IV PRN ×2 (05:23→20:06)
--- NOTE | 2021-08-19 06:53 | P.PN ---
Date of Service: 08/19/21 Subjective: no changes overnight diet changed per speech yesterday. patient has some trouble with food if she doesn't chew it well patient and decided to pursue hospice ROS: 10 point ROS as noted above, otherwise negative Physical exam GEN: Alert, oriented HEENT: Normal conjunctiva, sclera anicteric on R eye, left prosthetic eye CV: Regular rate and rhythm, no edema Pulm: Non-labored respirations on room air ABD: Soft, nontender, nondistended Neuro: weakness of bilateral facial muscles, slurred speech, slight right facial droop. str 5/5 in upper/lower extremities while tested in bed. 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, esophageal dysphagia, secondary to brain metastasis Diabetes mellitus type 2 History of CVA Slow transit constipation aggressive breast cancer with metastasis to brain worsening neurologic symptoms secondary to cancer, possibly from radiotherapy as well Neurology consulted, noted some edema associated with lesions, continue IV dexamethasone Patient with difficulty swallowing pills, speech therapy consulted to re- evaluate and altered diet yesterday Hyperglycemia secondary to steroids, insulin sliding scale, titrate Lantus as needed Physical therapy consulted, patient improved with ambulation slightly, recommended outpatient Oncology consulted to review brain MRI findings and assistance with prognosis/plan of care/treatment going forward - hospice vs palliative radiation Poor prognosis long discussion with patient and at bedside, reviewing options of home and continue palliative radiation vs hospice they have decided to pursue hospice at home. is at home this morning and will need to move furniture and make arrangements to fit equipment patient states she would like to remain full code during hospitalization, but DNR with hospice Code: Full - confirmed 08/19 Dispo: home with hospice, within 24hrs Time Spent Managing Pts Care (In Minutes): 35
[2021-08-19] MEDS: INSULIN -REGULAR HUMAN 50 UNIT/0.5 ML ML SQ SCH ×4 (07:30→20:08)
[2021-08-19] MEDS: AMLODIPINE 10 MG TAB PO SCH (09:36)
[2021-08-19] MEDS: MULTIVITAMIN TAB PO SCH (09:36)
[2021-08-19] MEDS: SENOSIDES 8.6 MG TAB PO SCH ×2 (09:37→20:06)
[2021-08-19] MEDS: ASPIRIN EC 81 MG TAB PO SCH (09:37)
[2021-08-19] MEDS: dexAMETHasone 10 MG/ML VIAL IV SCH (09:38)
[2021-08-19] MEDS: ENOXAPARIN 40 MG/0.4 ML SQ SCH (09:38)
[2021-08-19] MEDS: INSULIN GLARGINE 100 UNIT/ML SQ SCH (09:38)
[2021-08-19] MEDS: GLUCERNA SHAKE 237 ML CAN PO SCH ×3 (09:44→20:08)
[2021-08-19] MEDS: dexAMETHasone 4 MG/ML VIAL IV SCH (20:06)
[2021-08-19] MEDS: LOSARTAN POTASSIUM 50 MG TABLET PO SCH (20:07)
[2021-08-20 02:42] VITALS: O2SAT 98
[2021-08-20] MEDS: INSULIN -REGULAR HUMAN 50 UNIT/0.5 ML ML SQ SCH ×3 (07:30→16:30)
[2021-08-20] MEDS: INSULIN GLARGINE 100 UNIT/ML SQ SCH (09:00)
[2021-08-20] MEDS: GLUCERNA SHAKE 237 ML CAN PO SCH ×2 (09:00→12:14)
[2021-08-20] MEDS: MORPHINE 2 MG/ML SYR IV PRN ×2 (09:21→13:22)
[2021-08-20] MEDS: ENOXAPARIN 40 MG/0.4 ML SQ SCH (09:27)
[2021-08-20] MEDS: AMLODIPINE 10 MG TAB PO SCH (09:29)
[2021-08-20] MEDS: MULTIVITAMIN TAB PO SCH (09:29)
[2021-08-20] MEDS: ASPIRIN EC 81 MG TAB PO SCH (09:29)
[2021-08-20] MEDS: dexAMETHasone 4 MG/ML VIAL IV SCH (09:32)
[2021-08-20] MEDS: SENOSIDES 8.6 MG TAB PO SCH (09:32)
--- NOTE | 2021-08-20 12:10 | P.DS ---
Admission Date: 08/13/21 Discharge Date: 08/20/21 Disposition: HOSPICE-HOME Discharge Condition: FAIR Reason for Admission: Nausea and vomiting, confusion Consultations: Neurology - Dr. Navi Robertson/Onc - Dr. Morales Procedures: Problem List Intractable nausea/vomiting, after radiation therapy Facial nerve palsy, esophageal dysphagia, secondary to brain metastasis NICHOLE, dehydration Breast cancer with metastasis to brain Diabetes mellitus type 2 History of CVA Slow transit constipation Brief History of Present Illness: 61yo F, PMH: metastatic breast cancer s/p chemotherapy, met to the brain, and just underwent her first radiotherapy session. Presented to ED due to nausea, vomiting, worsening slurred speech, and generalized weakness. CT head did not reveal any acute disease process. CT Abd/pelvis noted progression of metastatic disease and bilateral pulmonary nodules increased in size. Hospital Course: Patient was found to have worsening dysphagia, weakness, and gait instability. MRI revealed 9 metastatic lesions in the brain. Patient was evaluated by neurology, physical therapy, speech therapy. Her symptoms are related to her brain lesions. These symptoms developed after her first radiotherapy session, which can lead to increased swelling around the lesions. Patient was treated with steroids, and had mild improvement. Patient's oncologist was contacted as well. The options of trying palliative radiotherapy again and home hospice were discussed with the patient and . During the hospitalization she was having difficulty swallowing pills and had an episode of choking/gagging. Speech therapy evaluated the patient and made adjustments to her diet. They decided to pursue home hospice upon discharge. Vital Signs/Physical Exam: Temp Pulse Resp BP Pulse Ox 97.3 F 107 H 18 144/88 H 97 08/20/21 08:00 08/20/21 09:29 08/20/21 08:00 08/20/21 09:29 08/20/21 08:00 Physical exam GEN: Alert, oriented HEENT: Normal conjunctiva, sclera anicteric on R eye, left prosthetic eye CV: Regular rate and rhythm, no edema Pulm: Non-labored respirations on room air ABD: Soft, nontender, nondistended Neuro: weakness of bilateral facial muscles, slurred speech, slight right facial droop. str 5/5 in upper/lower extremities while tested in bed. +Dysmetria Laboratory Data at Discharge: WBC 9.8 K/uL (4.3-10.9) 08/19/21 03:34 Hgb 14.3 g/dL (12.0-15.0) 08/19/21 03:34 Hct 43.0 % (36.0-45.0) 08/19/21 03:34 Plt Count 517 K/uL (152-406) H 08/19/21 03:34 PT 12.4 SECONDS (9.5-12.5) 08/13/21 13:00 INR 1.12 08/13/21 13:00 Sodium 137 mmol/L (136-145) 08/19/21 03:34 Potassium 4.1 mmol/L (3.5-5.1) 08/19/21 03:34 BUN 23 mg/dL (7-18) H 08/19/21 03:34 Creatinine 0.87 mg/dL (0.55-1.3) 08/19/21 03:34 Glucose 244 mg/dL (74-106) H 08/19/21 03:34 Phosphorus 2.8 mg/dL (2.5-4.9) 08/14/21 02:46 Magnesium 2.0 mg/dL (1.8-2.4) 08/18/21 03:42 Total Bilirubin 0.3 mg/dL (0.2-1.0) 08/19/21 03:34 AST 9 U/L (15-37) L 08/19/21 03:34 ALT 35 U/L (12-78) 08/19/21 03:34 Alkaline Phosphatase 72 U/L (45-117) 08/19/21 03:34 Lipase 64 U/L (73-393) L 08/13/21 13:00 Home Medications: Amlodipine [Norvasc*] 10 mg PO DAILY 08/14/21 Aspirin [Aspirin EC 81 MG] 81 mg PO DAILY 08/14/21 Losartan Potassium [Cozaar*] 50 mg PO BEDTIME 08/14/21 Metformin HCl 1,000 mg PO BID 08/14/21 Multivitamin [Multivitamins] 1 tab PO DAILY 08/14/21 dexAMETHasone [Decadron] 4 mg PO SEECOM 14 Days #21 tab 08/20/21 New Medications: dexAMETHasone [Decadron] 4 mg PO SEECOM 14 Days #21 tab Time spent managing pt's care (in minutes): 45
[2021-08-20 12:39] VITALS: BP 154/83; TEMP 97
== END 2021-08-20 17:26 | disposition hospice, home (50) | DRG 683 ==
LOC: ER 12:36 → ERHOLD 15:41 → 2ND 21:21
PROVIDERS: ADMIT Internal Medicine; ATTEND Internal Medicine
DX: N17.9 Acute kidney failure, unspecified (principal); C79.31 Secondary malignant neoplasm of brain; R11.2 Nausea with vomiting, unspecified; G51.0 Bell's palsy; R13.19 Other dysphagia; E86.0 Dehydration; C50.919 Malignant neoplasm of unspecified site of unspecified female breast; R27.8 Other lack of coordination; K59.01 Slow transit constipation; E09.65 Drug or chemical induced diabetes mellitus with hyperglycemia; T38.0X5A Adverse effect of glucocorticoids and synthetic analogues, initial encounter; Z86.73 Personal history of transient ischemic attack (TIA), and cerebral infarction without residual deficits; Z20.822 Contact with and (suspected) exposure to COVID-19; Z87.891 Personal history of nicotine dependence
CPT/HCPCS: 36415; 70450; 70553; 71045; 74177; 74230; 77280; 77290; 77295; 77300; 77334; 77412; 80048; 80053; 80076; 81003; 82947; 83605; 83690; 83735; 83880; 84100; 84443; 84484; 85025; 85027; 85610; 87040; 92526; 92611; 93005; 96361; 96365; 96366; 96375; 97110; 97112; 97116; 97161; 97530; 99203; 99214; 99282; 99285; A9577; J0360; J1100; J1650; J1815; J2270; J2405; J3475; J3480; J7030; J7042; Q9967; U0003